=== PATIENT | male | born 1985 | race Caucasian/White ===

== ENCOUNTER → 2017-10-06 | Outpatient (CLI) | payer OTHER ==
[2017-10-06 13:46] LABS: ALBUMIN 4.6 GM/DL (3.2-5.2); ALBUMIN/GLOBULIN RATIO 1.39 (1.00-1.93); ALKALINE PHOSPHATASE 77 U/L (45-117); ALT/SGPT 24 U/L (12-78); ANION GAP 6 MEQ/L (8-16); AST/SGOT 22 U/L (7-37); BILIRUBIN,TOTAL 0.4 MG/DL (0.2-1.0); BLOOD UREA NITROGEN 9 MG/DL (7-18); CARBON DIOXIDE LEVEL 32 MEQ/L (21-32); CHLORIDE LEVEL 102 MEQ/L (98-107); CREATININE FOR GFR 0.86 MG/DL (0.70-1.30); FREE T3 4.1 PG/ML (2.2-4.0); FREE T4 0.76 NG/DL (0.76-1.46); GLOMERULAR FILTRATION RATE > 60.0 (>60); GLUCOSE, FASTING 84 MG/DL (70-100); POTASSIUM SERUM 3.8 MEQ/L (3.5-5.1); SODIUM LEVEL 140 MEQ/L (136-145); TOTAL PROTEIN 7.9 GM/DL (6.4-8.2)
== END ==
LOC: M SMT 11:54
DX: E03.9 Hypothyroidism, unspecified (principal)
CPT/HCPCS: 84443

== ENCOUNTER → 2017-10-28 | Outpatient (CLI) | payer OTHER ==
[2017-10-28 17:09] LABS: BASO # 0.1 10^3/uL (0.0-0.2); BASO % 0.4 % (0.0-1.0); EOS # 0.2 10^3/uL (0.0-0.50); EOS % 1.4 % (0.0-3.0); HEMATOCRIT 44.9 % (42.0-52.0); HEMOGLOBIN 15.4 g/dl (14.0-18.0); IMMATURE GRANULOCYTE % 0.4 % (0-3.0); LYMPH # 2.2 10^3/uL (1.5-4.5); LYMPH % 17.5 % (24.0-44.0); MEAN CORPUSCULAR HEMOGLOBIN 29.3 pg (27.0-33.0); MEAN CORPUSCULAR HGB CONC 34.3 g/dl (32.0-36.5); MEAN CORPUSCULAR VOLUME 85.4 fl (80.0-96.0); MONO # 0.8 10^3/uL (0.0-0.8); NEUTROPHILS # 9.2 10^3/uL (1.8-7.7); NEUTROPHILS % 74.3 % (36.0-66.0); PLATELET COUNT, AUTOMATED 293 10^3/uL (150-450); RED BLOOD COUNT 5.26 10^6/uL (4.30-6.10); RED CELL DISTRIBUTION WIDTH 11.9 % (11.5-14.5); WHITE BLOOD COUNT 12.4 10^3/uL (4.0-10.0)
[2017-10-28 17:30] LABS: ALBUMIN 4.7 GM/DL (3.2-5.2); ALBUMIN/GLOBULIN RATIO 1.57 (1.00-1.93); ALKALINE PHOSPHATASE 80 U/L (45-117); ALT/SGPT 26 U/L (12-78); ANION GAP 4 MEQ/L (8-16); AST/SGOT 18 U/L (7-37); BILIRUBIN,TOTAL 0.2 MG/DL (0.2-1.0); BLOOD UREA NITROGEN 11 MG/DL (7-18); CALCIUM LEVEL 8.8 MG/DL (8.5-10.1); CARBON DIOXIDE LEVEL 30 MEQ/L (21-32); CHLORIDE LEVEL 105 MEQ/L (98-107); CREATININE FOR GFR 0.95 MG/DL (0.70-1.30); FREE T3 3.7 PG/ML (2.2-4.0); FREE T4 0.83 NG/DL (0.76-1.46); GLOMERULAR FILTRATION RATE > 60.0 (>60); GLUCOSE, FASTING 97 MG/DL (70-100); IRON (FE) 40 UG/DL (65-175); POTASSIUM SERUM 3.8 MEQ/L (3.5-5.1); SODIUM LEVEL 139 MEQ/L (136-145); TOTAL PROTEIN 7.7 GM/DL (6.4-8.2)
== END ==
LOC: M LAB 16:23
DX: R53.83 Other fatigue (principal); J45.998 Other asthma; E03.9 Hypothyroidism, unspecified
CPT/HCPCS: 71046

== ENCOUNTER → 2018-01-14 | Outpatient (CLI) | payer OTHER | LOC: M WUC 10:27 | DX: S20.211A Contusion of right front wall of thorax, initial encounter (principal); X58.XXXA Exposure to other specified factors, initial encounter; Y92.9 Unspecified place or not applicable | CPT/HCPCS: 71101 ==

== ENCOUNTER → 2019-10-28 | Outpatient (REF) | payer OTHER, MEDICAID ==
[2019-10-28 13:22] LABS: BASO # 0.1 10^3/uL (0.0-0.2); EOS # 0.2 10^3/uL (0.0-0.5); EOS % 3.5 % (0.0-3.0); HEMATOCRIT 50.4 % (42.0-52.0); HEMOGLOBIN 16.7 g/dl (13.5-17.5); LYMPH # 1.6 10^3/uL (1.5-5.0); LYMPH % 31.3 % (24.0-44.0); MEAN CORPUSCULAR HEMOGLOBIN 29.3 pg (27.0-33.0); MEAN CORPUSCULAR HGB CONC 33.1 g/dl (32.0-36.5); MEAN CORPUSCULAR VOLUME 88.4 fl (80.0-96.0); MONO # 0.5 10^3/uL (0.0-0.8); NEUTROPHILS # 2.8 10^3/uL (1.5-8.5); PLATELET COUNT, AUTOMATED 265 10^3/uL (150-450); WHITE BLOOD COUNT 5.1 10^3/uL (4.0-10.0)
[2019-10-28 13:37] LABS: ALBUMIN 4.7 GM/DL (3.2-5.2); ALT/SGPT 31 U/L (12-78); BILIRUBIN,TOTAL 0.5 MG/DL (0.2-1.0); BLOOD UREA NITROGEN 11 MG/DL (7-18); CALCIUM LEVEL 9.2 MG/DL (8.5-10.1); CARBON DIOXIDE LEVEL 30 MEQ/L (21-32); CHLORIDE LEVEL 106 MEQ/L (98-107); CHOLESTEROL LEVEL 213 MG/DL (<200); CHOLESTEROL RISK RATIO 5.071 (<5); CREATININE FOR GFR 0.98 MG/DL (0.70-1.30); GLOMERULAR FILTRATION RATE > 60.0 (>60); GLUCOSE, FASTING 98 MG/DL (70-100); HDL CHOLESTEROL 42 MG/DL (>40); LDL CHOLESTEROL 153 MG/DL (<100); NON-HDL-C 171 MG/DL; POTASSIUM SERUM 4.1 MEQ/L (3.5-5.1); SODIUM LEVEL 140 MEQ/L (136-145); TOTAL 25(OH) VITAMIN D 11.3 NG/ML (30.0-100.0); TOTAL PROTEIN 7.7 GM/DL (6.4-8.2); TRIGLYCERIDES LEVEL 90 MG/DL (<150)
== END ==
LOC: M LAB REF 12:39
PROVIDERS: ATTEND Physician Assistant
DX: Z00.01 Encounter for general adult medical examination with abnormal findings (principal); Z13.9 Encounter for screening, unspecified; J45.20 Mild intermittent asthma, uncomplicated; E61.1 Iron deficiency; E03.8 Other specified hypothyroidism; R10.12 Left upper quadrant pain; Z23 Encounter for immunization

== ENCOUNTER → 2019-11-30 | Outpatient (REF) | payer OTHER, MEDICAID | LOC: M LAB REF 16:28 | PROVIDERS: ATTEND Physician Assistant | DX: J02.9 Acute pharyngitis, unspecified (principal) ==

== ENCOUNTER 2020-08-15 22:47 | Emergency (ER) | payer MEDICAID, OTHER ==
[~2020-08-15] VITALS: Ht 182.9 cm; Wt 82.2 kg
[2020-08-16 00:13] VITALS: BP 147/95
== END 2020-08-16 00:15 | disposition home or self-care (01) ==
LOC: M ED 22:47
DX: R51.9 Headache, unspecified (principal); R03.0 Elevated blood-pressure reading, without diagnosis of hypertension; Z88.4 Allergy status to anesthetic agent; Z88.0 Allergy status to penicillin

== ENCOUNTER → 2020-09-06 | Outpatient (REF) | payer OTHER ==
[2020-09-06 17:19] LABS: BASO # 0.1 10^3/uL (0.0-0.2); EOS # 0.1 10^3/uL (0.0-0.5); EOS % 2.4 % (0.0-3.0); HEMATOCRIT 49.8 % (42.0-52.0); HEMOGLOBIN 16.3 g/dl (13.5-17.5); LYMPH # 1.6 10^3/uL (1.5-5.0); MEAN CORPUSCULAR HEMOGLOBIN 29.2 pg (27.0-33.0); MEAN CORPUSCULAR HGB CONC 32.7 g/dl (32.0-36.5); MEAN CORPUSCULAR VOLUME 89.1 fl (80.0-96.0); MONO # 0.5 10^3/uL (0.0-0.8); MONO % 8.8 % (0.0-5.0); NEUTROPHILS # 3.5 10^3/uL (1.5-8.5); NEUTROPHILS % 60.5 % (36.0-66.0); PLATELET COUNT, AUTOMATED 269 10^3/uL (150-450); RED BLOOD COUNT 5.59 10^6/uL (4.30-6.10); WHITE BLOOD COUNT 5.8 10^3/uL (4.0-10.0)
[2020-09-06 17:42] LABS: ALBUMIN 4.7 GM/DL (3.2-5.2); ALT/SGPT 38 U/L (12-78); BILIRUBIN,TOTAL 0.7 MG/DL (0.2-1.0); BLOOD UREA NITROGEN 11 MG/DL (7-18); CALCIUM LEVEL 9.2 MG/DL (8.5-10.1); CARBON DIOXIDE LEVEL 30 MEQ/L (21-32); CHLORIDE LEVEL 101 MEQ/L (98-107); CHOLESTEROL LEVEL 264 MG/DL (<200); CREATININE FOR GFR 1.07 MG/DL (0.70-1.30); FREE T4 0.78 NG/DL (0.76-1.46); GLOMERULAR FILTRATION RATE > 60.0 (>60); GLUCOSE, FASTING 82 MG/DL (70-100); HDL CHOLESTEROL 44 MG/DL (>40); LDL CHOLESTEROL 191 MG/DL (<100); NON-HDL-C 220 MG/DL; POTASSIUM SERUM 4.5 MEQ/L (3.5-5.1); SODIUM LEVEL 138 MEQ/L (136-145); TRIGLYCERIDES LEVEL 145 MG/DL (<150)
== END ==
LOC: M LAB REF 16:03
PROVIDERS: ATTEND Physician Assistant
DX: E03.9 Hypothyroidism, unspecified (principal)

== ENCOUNTER 2020-09-13 16:29 | Emergency (ER) | payer OTHER ==
[~2020-09-13] VITALS: Ht 182.9 cm; Wt 83.8 kg
--- OUTSIDE RECORDS SUMMARY | 2020-09-13 16:35 | CCD ---
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 Role Phone Brian Shrestha Unavailable Unavailable Allergies Code Code System Name Reaction Severity Status Onset Albuterol Sulfate Active 10/24/2019 6387 RxNorm Lidocaine Active 10/24/2019 Novocain Active 10/24/2019 723 RxNorm Amoxicillin Hives Active Notes: SEASONAL Medications Name Status Start Date Stop Date albuterol sulfate HFA 90 mcg/actuation aerosol inhaler Active Not available azithromycin 250 mg tablet TAKE 2 TABLETS BY MOUTH ON DAY 1 AND THEN TAKE 1 TABLET BY MOUTH ONCE A DAY ON DAY 2 THROUGH DAY 5 Active Not available cetirizine 10 mg tablet Active Not avai lable clindamycin HCl 300 mg capsule Completed 0 08/29/2020 Euthyrox 25 mcg tablet TAKE 1 TABLET BY MOUTH ONCE DAILY Completed 08/29 fluticasone 113 mcg-salmeterol 14 mcg/ac tuation breath activated powdr INHALE 1 PUFF TWICE DAILY RINSE MOUTH AFTER USE Active Not available ibuprofen 800 mg tablet TAKE 1 TABLET BY MOUTH EVERY 6 TO 8 HOURS NEEDED Completed 08/29/2020 montelukast 10 mg tablet Active Not della ilable Problems Name Status Onset Date Source Hypothyroidism Active 10/24/2019 History Iron Deficiency Active 10/24/2019 History Exacerbation of Intermittent Asthma Active 10/24/2019 History Left Upper Quadrant Pain Active 10/24/2019 History Influenza Vaccine Needed Active 10/24/2019 History Procedure by Method Active 10/24/2019 History Clinical Finding Active 10/24/2019 History Pharyngeal Finding Active 11/30/2019 History Procedures Notes: pyloric stenosis Results Lab Results None recorded. Past Encounters 09/06/2020 Hypothyroidism Chiqui Madera PA-C: [address], [place] [address], Ph. 08/30/2020 Acute Bronchitis Chiqui Madera PA-C: [address], [address], [place] [address], Ph. 08/30/2020 Chiqui Madera PA-C: [address], [place] [address], Ph. 08/29/2020 Acute Upper Respiratory Infection VALORIE Mendiola: [address], [place] [address], Ph. Social History Tobacco Smoking Status Never Smoker Vaccine List Vaccine Type Tdap .5 mL Plan of Care Patient Instructions As we discussed, we will treat you with Zithromax and have you come in tomorrow for a quick visit to check vitals and listen to your lungs. Go directly to the ER for chest pain or trouble breathing. Reminders Provider Appointments None recorded. Lab None recorded. Referral None recorded. Procedures None recorded. Surgeries None recorded. Imaging None recorded. Vitals 08/30/2020 11:50AM NURSE Height Weight BMI Blood Pressure 72 in 185 lbs 9.6 oz 25.2 kg/m2 142/82 mm[Hg ] 08/29/2020 10:50AM TELEHEALTH 20 Height 72 in 11/30/2019 Height Weight Blood Pressure 72 in 188 lbs 138/87 mm[Hg] 10/24/2019 Height Weight Blood Pressure 72 in 186 lbs 132/88 mm[Hg]
--- OUTSIDE RECORDS SUMMARY | 2020-09-13 16:35 | CCD ---
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 Role Phone Brian Shrestha Unavailable Unavailable Allergies Code Code System Name Reaction Severity Status Onset Albuterol Sulfate Active 10/24/2019 6387 RxNorm Lidocaine Active 10/24/2019 Novocain Active 10/24/2019 723 RxNorm Amoxicillin Hives Active Notes: SEASONAL Medications Name Status Start Date Stop Date albuterol sulfate HFA 90 mcg/actuation aerosol inhaler Completed 08/29/2020 cetirizine 10 mg tablet Active 08/29/2020 Not avai lable clindamycin HCl 300 mg [...] 10 mg tablet Active Not della ilable Zithromax Z-Eloy 250 mg tablet TAKE 2 TABLETS (500 MG) BY ORAL ROUTE ONCE DAILY FOR 1 DAY THEN 1 TABLET (250 MG) BY ORAL ROUTE ONCE DAILY FOR 4 DAYS Active Not available Problems Name Status Onset Date Source Hypothyroidism Active 10/24/2019 History Iron Deficiency Active 10/24/2019 History Exacerbation of Intermittent Asthma Active 10/24/2019 History Left Upper Quadrant Pain Active 10/24/2019 History Influenza Vaccine Needed Active 10/24/2019 History Procedure by Method Active 10/24/2019 History Clinical Finding Active 10/24/2019 History Pharyngeal Finding Active 11/30/2019 History Procedures Notes: pyloric stenosis Results Lab Results None recorded. Past Encounters 08/30/2020 Acute Bronchitis Chiqui Madera PA-C: [address], [address], [place] [address], Ph. 08/30/2020 Chiqui Madera PA-C: [address], [address], [place] [address], Ph. 08/29/2020 Acute Upper Respiratory Infection VALORIE Mendiola: [address], [address], [place] [address], Ph. Social History Tobacco Smoking Status Never [...]
--- OUTSIDE RECORDS SUMMARY | 2020-09-13 16:36 | CCD ---
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 Past Encounters 08/29/2020 Acute Upper Respiratory Infection Perri Moraes, RPA-C: [address] , [address], [place] [address], Ph. Social History Tobacco Smoking Status Never Smoker Vaccine List Vaccine Type Tdap 10/24/20190.5 mL Plan of Care Patient Instructions As [...] Surgeries None recorded. Imaging None recorded. Vitals 08/29/2020 10:50AM TELEHEALTH 20 Height 72 in 11/30/2019 Height Weight Blood Pressure 72 in 188 lbs 138/87 mm[Hg] 10/24/2019 Height Weight Blood Pressure 72 in 186 lbs 132/88 mm[Hg]
--- OUTSIDE RECORDS SUMMARY | 2020-09-13 16:36 | CCD | Continuity of Care Document ---
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 Phone AUTM Unavailable [employer] AUTM [phone] Problems Description No Information Available Social History Type Date Description Comments Sex Unknown ETOH Use Denies alcohol use Tobacco Use Start: Unknown Patient has never smoked Tobacco Use Start: Unknown The Patient Has Never Vaped Smoking Status Reviewed: 08/21/20 The Patient Has Never Vaped Allergies, Adverse Reactions, Alerts Active Allergies Reaction Severity Comments Date Penicillins Urticaria Moderate 07/26/2016 Lidocaine Urticaria Moderate 07/26/2016 Novocain Urticaria Moderate 07/26/2016 Amoxicillin hives 09/12/2016 Inactive Allergies NKDA 07/26/2016 Medications Active Medications SIG Qnty Indications Ordering Provide r Date Albuterol Sulfate HFA 108(90Base) mcg/Act Aerosol 2 puffs every 6 hours as needed for wheeze and cough 8.500gm J45.901 Hermes Ryan JR., M.D. 08/21/2020 Levothyroxine Sodium 25mcg Tablets Unknown Iron 325(65Fe) mg Tablets 1 by mouth once a day Unknown Claritin Unknown Immunizations Description No Information Available Vital Signs Date Vital Result Comment 08/21/2020 2:22pm BP Systolic 129 mmHg BP Diastolic 93 mmHg Heart Rate 88 /min Respiratory Rate 16 /min O2 % BldC Oximetry 99 % Body Temperature 99.1 F Weight 165.00 lb Pain Level 4 09/26/2019 10:00am BP Systolic 129 mmHg BP Diastolic 90 mmHg Heart Rate 102 /min Respiratory Rate 12 /min O2 % BldC Oximetry 95 % Body Temperature 100.1 F Weight 165.00 lb Height 72 inches 6'0" BMI (Body Mass Index) 22.4 kg/m2 Pain Level 7 Results Description No Information Available Procedures Description No Information Available Medical Devices Description No Information Available Encounters Type Date Location Provider Dx Diagnosis Office Visit 08/21/2020 3:15p Main Office RENAE Villaseñor J45.9 01 Unspecified asthma with (acute) exacerbation Z20.828 Contact w and exposure to ot h viral communicable diseases Assessments Date Code Description Provider 08/21/2020 J45.901 Unspecified asthma with (acute) exacerbation RENEA Villaseñor 08/21/2020 Z20.828 Contact with and (tidwell spected) exposure to other viral communicable diseases RENAE Villaseñor Plan of Treatment No Information Available Functional Status Description No Information Available Mental Status Description No Information Available Referrals Description No Information Available
--- OUTSIDE RECORDS SUMMARY | 2020-09-13 16:36 | CCD | Continuity of Care Document ---
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
--- OUTSIDE RECORDS SUMMARY | 2020-09-13 16:36 | CCD ---
Author Author [facility] Organization [facility] Address Unknown Phone Unavailable Care Team Providers Care Stoker Erector Name Role Phone Scordo, M Chiqui PA Unavailable Unavailable Scordo, M Chiqui PA Unavailable Unavailable Scordo, M Chiqui PA Unavailable Unavailable Scordo, M Chiqui PA Unavailable Unavailable Scordo, M Chiqui PA Unavailable Unavailable Scordo, M Chiqui PA Unavailable Unavailable Scordo, M Chiqui PA Unavailable Unavailable Scordo, M Chiqui PA Unavailable Unavailable Scordo, M Chiqui PA Unavailable Unavailable Scordo, M Chiqui PA Unavailable Unavailable Scordo, M Chiqui PA Unavailable Unavailable Scordo, M Chiqui PA Unavailable Unavailable Scordo, M Chiqui PA Unavailable Unavailable Scordo, M Chiqui PA Unavailable Unavailable Scordo, M Chiqui PA Unavailable Unavailable Scordo, M Chiqui PA Unavailable Unavailable Scordo, M Chiqui PA Unavailable Unavailable Scordo, M Chiqui PA Unavailable Unavailable Scordo, M Chiqui PA Unavailable Unavailable Scordo, M Chiqui PA Unavailable Unavailable Scordo, M Chiqui PA Unavailable Unavailable Scordo, M Chiqui PA Unavailable Unavailable Scordo, M Chiqui PA Unavailable Unavailable Scordo, M Chiqui PA Unavailable Unavailable Scordo, M Chiqui PA Unavailable Unavailable Scordo, M Chiqui PA Unavailable Unavailable Scordo, M Chiqui PA Unavailable Unavailable Scordo, M Chiqui PA Unavailable Unavailable Scordo, M Chiqui PA Unavailable Unavailable Scordo, M Chiqui PA Unavailable Unavailable Scordo, M Chiqui PA Unavailable Unavailable Scordo, M Chiqui PA Unavailable Unavailable Scordo, M Chiqui PA Unavailable Unavailable Scordo, M Chiqui PA Unavailable Unavailable Scordo, M Chiqui PA Unavailable Unavailable Scordo, M Chiqui PA Unavailable Unavailable Scordo, M Chiqui PA Unavailable Unavailable Scordo, M Chiqui PA Unavailable Unavailable Scordo, M Chiqui PA Unavailable Unavailable Scordo, M Chiqui PA Unavailable Unavailable LAN, SHEREEN Unavailable Unavailable LAN, SHEREEN Unavailable Unavailable LAN, SHEREEN Unavailable Unavailable LAN, SHEREEN Unavailable Unavailable LAN, SHEREEN Unavailable Unavailable LAN, SHEREEN Unavailable Unavailable LAN, SHEREEN Unavailable Unavailable LAN, SHEREEN Unavailable Unavailable LAN, SHEREEN Unavailable Unavailable LAN, SHEREEN Unavailable Unavailable ALN, SHEREEN Unavailable Unavailable LAN, SHEREEN Unavailable Unavailable LAN, SHEREEN Unavailable Unavailable LAN, SHEREEN Unavailable Unavailable LAN, SHEREEN Unavailable Unavailable LAN, SHEREEN Unavailable Unavailable LAN, SHEREEN Unavailable Unavailable LAN, SHEREEN Unavailable Unavailable LAN, SHEREEN Unavailable Unavailable LAN, SHEREEN Unavailable Unavailable LAN, SHEREEN Unavailable Unavailable LAN, SHEREEN Unavailable Unavailable LAN, SHEREEN Unavailable Unavailable LAN, SHEREEN Unavailable Unavailable LAN, SHEREEN Unavailable Unavailable Davis, Sarah ASSISTANT DIRECTOR OF PUBLIC WORKS Unavailable Unavailable Davis, Sarah ASSISTANT DIRECTOR OF PUBLIC WORKS Unavailable Unavailable Davis, Sarah ASSISTANT DIRECTOR OF PUBLIC WORKS Unavailable Unavailable Davis, Sarah ASSISTANT DIRECTOR OF PUBLIC WORKS Unavailable Unavailable Davis, Sarah ASSISTANT DIRECTOR OF PUBLIC WORKS Unavailable Unavailable Davis, Sarah ASSISTANT DIRECTOR OF PUBLIC WORKS Unavailable Unavailable Davis, Sarah ASSISTANT DIRECTOR OF PUBLIC WORKS Unavailable Unavailable Davis, Sarah ASSISTANT DIRECTOR OF PUBLIC WORKS Unavailable Unavailable Davis, Sarah ASSISTANT DIRECTOR OF PUBLIC WORKS Unavailable Unavailable Davis, Sarah ASSISTANT DIRECTOR OF PUBLIC WORKS Unavailable Unavailable Davis, Sarah ASSISTANT DIRECTOR OF PUBLIC WORKS Unavailable Unavailable Rosa, Phoung DMD Unavailable Unavailable BLANK, AFSHAN BRIAN RPA-C Unavailable Unavailable BLANK, AFSHAN BRIAN RPA-C Unavailable Unavailable BLANK, AFSHAN BRIAN RPA-C Unavailable Unavailable BLANK, AFSHAN BRIAN RPA-C Unavailable Unavailable BLANK, AFSHAN BRIAN RPA-C Unavailable Unavailable BLANK, AFSHAN BRIAN RPA-C Unavailable Unavailable BLANK, AFSHAN BRIAN RPA-C Unavailable Unavailable BLANK, AFSHAN BRIAN RPA-C Unavailable Unavailable BLANK, AFSHAN BRIAN RPA-C Unavailable Unavailable BLANK, AFSHAN BRIAN RPA-C Unavailable Unavailable BLANK, AFSHAN BRIAN RPA-C Unavailable Unavailable BLANK, AFSHAN BRIAN RPA-C Unavailable Unavailable BLANK, AFSHAN BRIAN RPA-C Unavailable Unavailable BLANK, AFSHAN BRIAN RPA-C Unavailable Unavailable BLANK, AFSHAN BRIAN RPA-C Unavailable Unavailable BLANK, AFSHAN BRIAN RPA-C Unavailable Unavailable BLANK, AFSHAN BRIAN RPA-C Unavailable Unavailable BLANK, AFSHAN BRIAN RPA-C Unavailable Unavailable BLANK, AFSHAN BRIAN RPA-C Unavailable Unavailable BLANK, AFSHAN BRIAN RPA-C Unavailable Unavailable BLANK, AFSHAN BRIAN RPA-C Unavailable Unavailable BLANK, AFSHAN BRIAN RPA-C Unavailable Unavailable BLANK, AFSHAN BRIAN RPA-C Unavailable Unavailable BLANK, AFSHAN BRIAN RPA-C Unavailable Unavailable BLANK, AFSHAN BRIAN RPA-C Unavailable Unavailable BLANK, AFSHAN BRIAN RPA-C Unavailable Unavailable BLANK, AFSHAN BRIAN RPA-C Unavailable Unavailable BLANK, AFSHAN BRIAN RPA-C Unavailable Unavailable BLANK, AFSHAN BRIAN RPA-C Unavailable Unavailable BLANK, AFSHAN BRIAN RPA-C Unavailable Unavailable BLANK, AFSHAN BRIAN RPA-C Unavailable Unavailable BLANK, AFSHAN BRIAN RPA-C Unavailable Unavailable BLANK, AFSHAN BRIAN RPA-C Unavailable Unavailable BLANK, AFSHAN BRIAN RPA-C Unavailable Unavailable BLANK, AFSHAN BRIAN RPA-C Unavailable Unavailable BLANK, AFSHAN BRIAN RPA-C Unavailable Unavailable BLANK, AFSHAN BRIAN RPA-C Unavailable Unavailable BLANK, AFSHAN BRIAN RPA-C Unavailable Unavailable BLANK, AFSHAN BRIAN RPA-C Unavailable Unavailable Ayah Marley Unavailable Unavailable Marley, Ayah Teena PA Unavailable Unavailable Marley, Ayah Teena PA Unavailable Unavailable Marley, Ayah Teena PA Unavailable Unavailable Marley, Ayah Teena PA Unavailable Unavailable Marley, Ayah Teena PA Unavailable Unavailable Marley, Ayah Teena PA Unavailable Unavailable Marley, Ayah Teena PA Unavailable Unavailable Marley, Ayah Teena PA Unavailable Unavailable Marley, Ayah Teena PA Unavailable Unavailable [facility], RFROST BLANK PA BRIAN Unavailable Unavailable Re-disclosure Warning The records that you are about to access may contain information from federally-assisted alcohol or drug abuse programs. If such information is present, then the following federally mandated warning applies: This information has been disclosed to you from records protected by federal confidentiality rules (42 CFR part 2). The federal rules prohibit you from making any further disclosure of this information unless further disclosure is expressly permitted by the written consent of the person to whom it pertains or as otherwise permitted by 42 CFR part 2. A general authorization for the release of medical or other information is NOT sufficient for this purpose. The Federal rules restrict any use of the information to criminally investigate or prosecute any alcohol or drug abuse patient.The records that you are about to access may contain highly sensitive health information, the redisclosure of which is protected by Article 27-F of the [facility] Public Health law. If you continue you may have access to information: Regarding HIV / AIDS; Provided by facilities licensed or operated by the [facility] Office of Mental Health; or Provided by the [facility] Office for People With Developmental Disabilities. If such information is present, then the following [facility] mandated warning applies: This information has been disclosed to you from confidential records which are protected by state law. State law prohibits you from making any further disclosure of this information without the specific written consent of the person to whom it pertains, or as otherwise permitted by law. Any unauthorized further disclosure in violation of state law may result in a fine or long term sentence or both. A general authorization for the release of medical or other information is NOT sufficient authorization for further disc losure. Allergies and Adverse Reactions Type Description Substance Reaction Status Data Source(s ) Allergy to substance Allergy to substance Novocain NORM ([facility]) Allergy to substance Allergy to substance Lidocaine NORM ([facility]) Allergy to substance Allergy to substance Albuterol Sulfate NORM ([facility]) Allergy to substance Allergy to substance Novocain NORM ([facility]) Allergy to substance Allergy to substance Lidocaine NORM ([facility]) Allergy to substance Allergy to substance Albuterol Sulfate NORM ([facility]) Allergy to substance Allergy to substance Novocain NORM ([facility]) Allergy to substance Allergy to substance Lidocaine NORM ([facility]) Allergy to substance Allergy to substance Albuterol Sulfate NORM ([facility]) Drug allergy ALBUTEROL SULFATE HFA 200 ACTUAT Albuter ol 0.09 MG/ACTUAT Metered Dose Inhaler lightheadedness U [facility] Drug allergy NOVOCAIN NOVOCAIN [facility] Drug allergy LIDOCAINE LIDOCAINE [facility] Miscellaneous allergy SEASONAL SEASONAL [facility] Family History Family Member Name Family Member Gender Family Member Status Date o f Status Description Data Source(s) Unknown Unknown Problem MEDENT ([facility]) father Unknown Unknown Problem MEDENT ([facility] Encounters Encounter Providers Location Date Indications Data Source(s ) Chiqui Madera PA-C: [address], [place] [address], Ph. Attender: Chiqui MACDONALD [facility] Medical 09/06/2020 12:00:00 AM EST NORM ([facility]) Chiqui Madera PA-C: [address], [place] [address], Ph. Attender: Chiqui MACDONALD [facility] 08/30/2020 12:00:00 AM EST NORM ([facility]) Chiqui Madera PA-C: [address], [place] [address], Ph. Attender: Chiqui [facility]DONALD [facility] Medical 08/30/2020 12:00:00 AM EST NORM ([facility]) JOSE SpencerC: [address], [place] [address], Ph. Attender: Chiqui [facility]DON[facility] Medical 08/30/2020 12:00:00 AM EST NORM ([facility]) JOSE SpencerC: [address], [place] [address], Ph. Attender: Chiqui [facility]DONAL[facility] 08/30/2020 12:00:00 AM EST NORM ([facility]) KOSTAS MendiolaC: [address], [place] [address], Ph. Attender: SHEREEN LAN [facility] Medical 08/29/2020 12:00:00 AM EST NORM ([facility]) KOSTAS MendiolaC: [address], [place] [address], Ph. Attender: SHEREEN LAN [facility] Medical 08/29/2020 12:00:00 AM EST NORM ([facility]) Shereen Lan RPA-C: [address], [place] [address], Ph. Attender: SHEREEN LAN [facility] 08/29/2020 12:00:00 AM EST NROM ([facility]) Outpatient Attender: Teena sandoval 08/21/2020 02:15:00 PM EST MEDENT ([facility]) Outpatient Attender: ERENDIRA HEDRICK [facility] 11/23 07:53:03 AM EDT [facility] Outpatient Attender: BRIAN BLANK RPA-C [facility] 12/15/2019 07:53:02 AM EDT [facility] Outpatient Attender: ERENDIRA HEDRICK [facility] 11/22 08:37:02 AM EDT [facility] Outpatient Attender: BRIAN BLANK RPA-C [facility] 12/02/2019 08:37:01 AM EDT [facility] Outpatient Attender: ERENDIRA HEDRICK [facility] 03/2020 04:23:01 PM EDT [facility] Outpatient Attender: BRIAN BLANK RPA-C [facility] 11/30/2019 02:56:00 PM EDT [facility] Outpatient Attender: ERENDIRA HEDRICK [facility] 10/31/2019 04:17:02 PM EDT [facility] Outpatient Attender: ERENDIRA HEDRICK [facility] 10/31/2019 01:33:03 PM EDT [facility] Outpatient Attender: BRIAN BLANK RPA-C [facility] 10/31/2019 01:33:01 PM EDT [facility] Outpatient Attender: ERENDIRA HEDRICK [facility] 10/31/2019 01:32:01 PM EDT [facility] Outpatient Attender: ERENDIRA HEDRICK [facility] 10/28/2019 10:08:00 AM [facility] Outpatient Attender: ERENDIRA HEDRICK [facility] 10/28/2019 10:03:01 AM [facility] Outpatient Attender: BRIAN BLANK RPA-C [facility] 10/26/2019 08:24:02 AM [facility] Outpatient Attender: BRIAN BLANK RPA-C [facility] 10/25/2019 12:00:25 AM [facility] Outpatient Attender: BRIAN BLANK RPA-C [facility] 10/24/2019 11:52:00 AM [facility] Outpatient Attender: BRIAN EUGENE [facility] 10/24/2019 10:51:00 AM [facility] Outpatient Attender: BRIAN EUGENE [facility] 10/24/2019 10:50:01 AM [facility] Outpatient Attender: BRIAN ABHAY EUGENE [facility]ES[facility]YEC 10/24/2019 10:48:00 AM [facility] Outpatient Attender: Cheryl Rosa RODRIGUEZ WATNDC 10/24/2019 10:37:01 AM [facility] Outpatient Attender: Cheryl Rosa RODRIGUEZ WATNDC 10/20/2019 12:48:01 PM [facility] Outpatient Attender: Cheryl Rosa RODRIGUEZ WATNDC 10/19/2019 08:46:00 AM [facility] Outpatient Attender: Cheryl Rosa RODRIGUEZ [facility]ATNDC 10/12/2019 11:27:47 AM [facility] Outpatient Attender: Sarah odonnell 09/26/2019 08:15:00 AM EST MEDENT ([facility]) Outpatient Attender: Sarah odonnell 07/20/2019 12:30:00 PM EST MEDENT ([facility]) Immunizations Vaccine Date Status Description Data Source(s) Tdap 10/24/2019 12:00:00 AM EST completed 10/24/2019 0.5 mL NORM ([facility]) Tdap 10/24/2019 12:00:00 AM EST completed 10/24/2019 0.5 mL NORM ([facility]) Tdap 10/24/2019 12:00:00 AM EST completed 10/24/2019 0.5 mL NORM ([facility]) Medications Medication Brand Name Start Date Product Form Dose Route Admi nistrative Instructions Pharmacy Instructions Status Indications Reaction Description Data Source(s) cetirizine hydrochloride 10 MG Oral Tablet cetirizine 10 mg tablet cetirizine 10 mg tablet 08/29/2020 12:00:00 AM EST complete d cetirizine hydrochloride 10 MG Oral Tablet NORM ([facility]) cetirizine hydrochloride 10 MG Oral Tablet cetirizine 10 mg tablet cetirizine 10 mg tablet 08/29/2020 12:00:00 AM EST complete d cetirizine hydrochloride 10 MG Oral Tablet NORM ([facility]) 60 ACTUAT Albuterol 0.09 MG/ACTUAT Metered Dose Inhaler Albu terol Sulfate HFA 08/21/2020 12:00:00 AM EST RESPIRATORY active MEDENT ([facility]) Oseltamivir 75 MG Oral Capsule Oseltamivir Phosphate 09/26/2019 12:00:00 AM EST ORAL active MEDENT ( [facility]) 60 ACTUAT Albuterol 0.09 MG/ACTUAT Metered Dose Inhaler Albu terol Sulfate HFA 07/20/2019 12:00:00 AM EST RESPIRATORY completed MEDENT ([facility]) Azithromycin 250 MG Oral Tablet Azithromycin 07/20/2019 12:00:[address] ORAL completed MEDENT ([facility]) Prednisone 20 MG Oral Tablet Prednisone 07/20/2019 12:00:00 AM EST completed MEDENT ([facility]) Clindamycin 300 MG Oral Capsule clindamycin HCl 300 mg capsule clindamycin HCl 300 mg capsule completed clindam ycin 300 MG Oral Capsule NORM ([facility]) Levothyroxine Sodium 0.025 MG Oral Table t [Euthyrox] Euthyrox 25 mcg tablet TAKE 1 TABLET BY MOUTH ONCE DAILY Euthyrox 25 mcg tablet TAKE 1 TABLET BY MOUTH ONCE DAILY completed levothy roxine sodium 0.025 MG Oral Tablet [Euthyrox] NORM ([facility]) albuterol sulfate HFA 90 mcg/actuation aerosol inhaler [id number] completed [id number] 200 ACTUAT albuterol 0.09 MG/ACTUAT Metered Dose Inhaler NORM ([facility]) Clindamycin 300 MG Oral Capsule clindamycin HCl 300 mg capsule clindamycin HCl 300 mg capsule completed clindam ycin 300 MG Oral Capsule NORM ([facility]) Ibuprofen 800 MG Oral Tablet ibuprofen 8 00 mg tablet TAKE 1 TABLET BY MOUTH EVERY 6 TO 8 HOURS NEEDED ibuprofen 800 mg tablet TAKE 1 TABLET BY MOUTH EVERY 6 TO 8 HOURS NEEDED completed ibuprofen 800 MG Oral Tablet NORM ([facility]) Levothyroxine Sodium 0.025 MG Oral Table t [Euthyrox] Euthyrox 25 mcg tablet TAKE 1 TABLET BY MOUTH ONCE DAILY Euthyrox 25 mcg tablet TAKE 1 TABLET BY MOUTH ONCE DAILY completed levothy roxine sodium 0.025 MG Oral Tablet [Euthyrox] NORM ([facility]) Clindamycin 300 MG Oral Capsule clindamycin HCl 300 mg capsule clindamycin HCl 300 mg capsule completed clindam ycin 300 MG Oral Capsule NORM ([facility]) Levothyroxine Sodium 0.025 MG Oral Table t [Euthyrox] Euthyrox 25 mcg tablet TAKE 1 TABLET BY MOUTH ONCE DAILY Euthyrox 25 mcg tablet TAKE 1 TABLET BY MOUTH ONCE DAILY completed levothy roxine sodium 0.025 MG Oral Tablet [Euthyrox] NORM ([facility]) Ibuprofen 800 MG Oral Tablet ibuprofen 8 00 mg tablet TAKE 1 TABLET BY MOUTH EVERY 6 TO 8 HOURS NEEDED ibuprofen 800 mg tablet TAKE 1 TABLET BY MOUTH EVERY 6 TO 8 HOURS NEEDED completed ibuprofen 800 MG Oral Tablet NORM ([facility]) Ibuprofen 800 MG Oral Tablet ibuprofen 8 00 mg tablet TAKE 1 TABLET BY MOUTH EVERY 6 TO 8 HOURS NEEDED ibuprofen 800 mg tablet TAKE 1 TABLET BY MOUTH EVERY 6 TO 8 HOURS NEEDED completed ibuprofen 800 MG Oral Tablet NORM ([facility]) albuterol sulfate HFA 90 mcg/actuation aerosol inhaler [id number] completed [id number] 200 ACTUAT albuterol 0.09 MG/ACTUAT Metered Dose Inhaler NORM ([facility]) Insurance Providers Payer name Policy type / Coverage type Policy ID Covered libertarian ID Covered libertarian's relationship to rodgers Policy Rodgers Plan Information [facility] COMM[facility] [id number] SP [id number] [place] [id number] SP [id number] MEDICAID [id number] SP [id number] Managed Care [facility] Community Plan P [id number] S [id number] Medicaid S [id number] Managed Care [facility] Community Plan S UNAVAILABLE S UNAVAILABLE Medicaid O UNAVAILABLE S UNAVAILA BLE Sliding Fee Scale P [id number] S [id number] SELF PAY UNAVAILABLE SP UNAVAILA BLE MEDICAID [id number] SP [id number] [facility] Health Maintenance Organization (O) [id number] Self [id number] [employer] [facility] Health Maintenance Organization (HMO) [id number] Self [id number] [facility] (HMO) [id number] Self [id number] [facility] Organization (HMO) [id number] Self [id number] [facility] O [id number] S [id number] [facility] Maintenance Organization (HMO) [id number] Self [id number] [facility] Organization (HMO) Self c Community Plan Health Maintenance Organization (HMO) Self [employer] -H[employer] [id number] 18 [id number] Problems, Conditions, and Diagnoses Code Display Name Description Problem Type Effective Dates Data Source(s) 485988935 Acute pharyngitis, unspecified Acute pharyngitis, unsp ecified 11/30/2019 02:54:33 PM EDT [facility] 912853452 Mild intermittent asthma with (acute) ex acerbation Mild intermittent asthma with (acute) exacerbation 11/30/2019 02:54:33 PM EDT [facility] 295890292 Pharyngeal finding Pharyngeal Finding Problem 03/2020 12:00:00 AM EDT [place] ([facility]) [id number] Pharyngeal finding Pharyngeal Finding Problem 03/2020 12:00:00 AM EDT [place] ([facility]) 183260731 Pharyngeal finding Pharyngeal Finding Problem 03/2020 12:00:00 AM EDT [place] ([facility]) V05.9 Vaccination Vaccination 10/26/2019 08:22:02 AM [facility] V05.9 Encounter for immunization Encounter for immunization 10/24/2019 11:50:38 AM [facility] 789.02 Left upper quadrant pain Left upper quadrant pain 10/24/2019 11:50:38 AM [facility] [id number] Other specified hypothyroidism Other specified hypothy roidism 10/24/2019 11:50:38 AM [facility] 275.09 Iron deficiency Iron deficiency 10/24/2019 11:5 0:38 AM [facility] V70.0 Health Screening Health Screening 10/24/2019 11 :50:38 AM [facility] V70.0 Encounter for general adult medical exam ination with abnormal findings Encounter for general adult medical examination with abnormal findings 10/24/2019 11:50:38 AM EST [facility] [id number] Clinical finding Clinical Finding Problem 10/24/2019 12 :00:00 AM EST NORM ([facility]) 573536329 Procedure by method Procedure by Method Problem 0 10/24/2019 12:00:00 AM EST NORM ([facility]) [id number] Influenza vaccine needed Influenza Vaccine Needed Pro blem 10/24/2019 12:00:00 AM EST NORM ([facility]) 802059276 Left upper quadrant pain Left Upper Quadrant Pain Prob ken 10/24/2019 12:00:00 AM EST NORM ([facility]) 461199358 Exacerbation of intermittent asthma Exac erbation of Intermittent Asthma Problem 10/24/2019 12:00:00 AM EST NORM ([facility]) 44516561 Iron deficiency Iron Deficiency Problem 10/24/2019 12:0 0:00 AM EST NORM ([facility]) 41958717 Hypothyroidism Hypothyroidism Problem 10/24/2019 12:00: 00 AM EST NORM ([facility]) 775132031 Clinical finding Clinical Finding Problem 10/24/2019 12 :00:00 AM EST NORM ([facility]) 614349062 Procedure by method Procedure by Method Problem 0 10/24/2019 12:00:00 AM EST NORM ([facility]) [id number] Influenza vaccine needed Influenza Vaccine Needed Pro blem 10/24/2019 12:00:00 AM EST NORM ([facility]) 625298481 Left upper quadrant pain Left Upper Quadrant Pain Prob ken 10/24/2019 12:00:00 AM EST NORM ([facility]) 349774332 Exacerbation of intermittent asthma Exac erbation of Intermittent Asthma Problem 10/24/2019 12:00:00 AM EST NORM ([facility]) 18535398 Iron deficiency Iron Deficiency Problem 10/24/2019 12:0 0:00 AM EST NORM ([facility]) 44033774 Hypothyroidism Hypothyroidism Problem 10/24/2019 12:00: 00 AM EST NORM ([facility]) 625491890 Clinical finding Clinical Finding Problem 10/24/2019 12 :00:00 AM EST NORM ([facility]) 129089022 Procedure by method Procedure by Method Problem 0 10/24/2019 12:00:00 AM KELLY ZHENG ([facility]) [id number] Influenza vaccine needed Influenza Vaccine Needed Pro blem 10/24/2019 12:00:00 AM KELLY ZHENG ([facility] er) [id number] Left upper quadrant pain Left Upper Quadrant Pain Prob ken 10/24/2019 12:00:00 AM KELLY ZHENG ([facility] er) [id number] Exacerbation of intermittent asthma Exac erbation of Intermittent Asthma Problem 10/24/2019 12:00:00 AM KELLY ZHENG ([facility]) [id number] Iron deficiency Iron Deficiency Problem 10/24/2019 12:0 0:00 AM KELLY ZHENG ([facility]) [id number] Hypothyroidism Hypothyroidism Problem 10/24/2019 12:00: 00 AM KELLY AHUMADAENA ([facility]) Results ID Date Data Source [id number] 08/21/2020 12:00:00 AM EST [facility] Name Value Range Interpretation Code Description Data Jania rce(s) Supporting Document(s) SARS coronavirus 2 Ag [facility] This lab was ordered by [facility] and reported by [facility]. ID Date Data Source [id number] 11/30/2019 02:56:00 PM EDT [facility] Name Value Range Interpretation Code Description Data Jania rce(s) Supporting Document(s) THROAT CULTR NORMAL JOSE PRESENT N [facility] ID Date Data Source [id number] 11/30/2019 02:25:49 PM EDT [facility] Measurements & CalculationsHeight: 72 inches (6 ft. 0 in.) 182.88 cm Weight: 188 pounds 85.45 kg Body Mass Index (BMI): 25.59BMI Interpretation: OverweightBody Surface Area (BSA): 2.08Weight Management Education Done (Nutrition/Physical Activity)Vital SignsTemperature: 98.6F tympanic Pulse Rate: 86 beats/minuteRespiratory Rate: 18 respirations/minuteBlood Pressure: 138/87 left arm sitting automaticO2 Saturation: 98% room airVital Signs performed by: Nerissa Goldberg LPN, November 30, 2019 2:32 PMVital Signs performed by: Brian MACDONALD, November 30, 2019 2:39 PMLabs In-House Lab TestsDate/Time Collected: November 30, 2019 3:00 PMDate/Time Received: November 30, 2019 3:00 PMTest Result Reference Range Normal ValueRapid Strep: negative negativeNerissa Goldberg LPN, November 30, 2019 3:00 PMInitial Intake Information from: patientRoom #: 1Smo angelo, Tobacco, Vaping or Smoke Exposure StatusSmoke Status: never smokerTobacco Use: NoDo you vape? NoPassive Smoke Exposure: NoHealthcare HistorySince your last office visit...Have you been admitted to the hospital? NoHave you been to an emergency room (ER) or urgent care clinic? NoHave you seen another healthcare provider? NoHave you seen a dentist? NoRate Your HealthIn general, would you say your health is? FairPain AssessmentAre you currently having any pain which... You would like your provider to address? No Affects your activity level? NoDepression Screening - PHQ-2Over the last two weeks, have you... Had little interest or pleasure in doing things? Not at all Been feeling down, depressed, or hopeless? Not at all PHQ-2 Score: 0Anxiety Screening - YASMEEN- 2Over the last two weeks, have you been... Feeling nervous, anxious, or on edge? Not at all Unable to stop or control worrying? Not at all YASMEEN-2 Score: 0Infectious Disease / Travel ScreeningRecent travel for you or any close contacts? NoHave you had any close contact with anyone diagnosed with or under investigation for COVID-19 (coronavirus)? NoHave you had any of the following symptoms recently? Fever? NoRespiratory symptoms: cough, cold, congestion, shortness of breath, difficulty breathing? YesScreening, Brief Intervention, & Referral to Treatment (SBIRT)Pre-Screening Questions How many times have you have 5 or more drinks in a day? 0How many times have you used an illegal drug or used a prescription medication for a non-medical reason? 0Performed by: Nerissa Goldberg LPN, November 30, 2019 2:28 PMPatient History Medical History:hypothyroidismAsthmaSurgical History:pyloric stenosisFamily History:Diabetes (Father)Hypertension (Father)Stroke (Father)Hypertension (Mother)[place] - Male under age 55 (Paternal Grandfather)Social/Personal History: Chief Complaintproductive cough, headache, sore throat, head congestionHistory of Present Illness (HPI)34 y/o male here for productive cough, sore throat, head congestion and headache over the last 3 days.Started with sore throat. Took Dayquil this AM with some improvement. Pt reports he typically feels worsening breathing in the summer months. HPI performed by: Brian MACDONALD, November 30, 2019 2:40 PMTransitions of Care InboundProblem ReviewProblem List was reviewed and/or updated during this visit.Medication Reconciliation & ReviewMedication List was reviewed and/or updated during this visit, including review of any hcom-saz-faajwfw medications, herbal therapies, and/or supplements.Allergy ReviewAllergy List was reviewed and/or updated during this visit.Adult Preven candido CareProvider Calculated and Reviewed all Clinical Protocols for patient today. Labs/Meds/Other Counseling-Nutrition and Physical Activity:BMI Interpretation: Overweight (11/30/2019) Counseling: Done (11/30/2019) Physical Activity: Done (11/30/2019)Review of Systems General: Complains of headache. Denies fever, feeling ill, sweats. Ears/Nose/Throat: Complains of nasal congestion, sore throat. Denies earache, difficulty swallowing, swollen glands. Cardiovascular: Denies chest pain, palpitations, feeling faint. Respiratory: Complains of cough, shortness of breath, wheezing. Denies difficulty breathing, excessive sputum, coughing up blood. Gastrointestinal: Denies nausea, vomiting, diarrhea, pain or discomfort. Neurologic: Denies weakness, feeling faint. Physical ExamGeneral Appearance: well nourished, well hydrated, no acute distressExternal Ears: normal, no lesions or deformitiesHearing: grossly intactOtoscopy: canals clear, tympanic membranes intact, no fluid, light reflex intact bilaterallyExternal Nose: normal, no lesions or deformitiesNasal: mucosa, septum, and turbinates normal, nares patentLips/Teeth/Gums: normal dentition, no gingival inflammation, no labial lesionsPharynx: tongue normal, posterior pharynx without erythema or exudate, no thrush/aphthous ulcerNeck: supple, no masses, trachea midline, full range of motion of neck, no adenopathyRespiratory, Auscultation: clear to auscultation bilaterally; no rales, rhonchi, or wheezesRespiratory, Effort: no intercostal retractions or use of accessory musclesCardiovascular, Auscultation: S1, S2 audible; no murmur, rub, or gallop; RRRPeripheral Circulation: no clubbing, cyanosis, edema, or varicositiesAbdomen: soft, non-tender, no masses, bowel sounds normalGait & Station: normalOrientation: oriented to time, place, and personJudgment & Insight: intactCare Management Plan Transitions of CareInboundRate Your HealthIn general, would you say your health is? FairAssessment & Plan Problems:Added: Acute pharyngitis, unspecified (OVX07-Z72.9) Assessment: Instructions: Negative strep in office today. Throat culture sent out, will call you if this requires antibiotics. Recommend warm salt water gargles, losanges, hot tea. Encourage plenty of fluids, soft foods such as jello and pudding. May use acetaminophen (Tylenol) or ibuprofen(Motrin) as directed on over the counter packaging, as needed for pain or inflammation.Changed:From: Dx of Mild intermittent asthma, uncomplicated (ADK26-Y22.20) To: Mild intermittent asthma with (acute) exacerbation (CUD35-J61.21)Assessed:Mild intermittent asthma with (acute) exacerbation (LNN88-F08.21) Assessment: Instructions: Start Cetirizine and Montelukast daily as prescribed. Continue your AirDuo twice daily. Although you get some dizziness and jittery feeling with your albuterol inhaler, please keep that with you to use for wheezing or shortness of breath.Patient Instructions/Care Plan: Mild intermittent asthma with (acute) exacerbation: Start Cetirizine and Montelukast daily as prescribed. Continue your AirDuo twice daily. Although you get some dizziness and jittery feeling with your albuterol inhaler, please keep that with you to use for wheezing or shortness of breath.Acute pharyngitis- unspecified: Negative strep in office today. Throat culture sent out, will call you if this requires antibiotics. Recommend warm salt water gargles, losanges, hot tea. Encourage plenty of fluids, soft foods such as jello and pudding. May use acetaminophen (Tylenol) or ibuprofen(Motrin) as directed on over the counter packaging, as needed for pain or inflammatio n. Plan developed in collaboration with patient and/or familyMedications:VITAMIN D3 50 MCG (1999 UT) ORAL CAPSULEMONTELUKAST SODIUM 10 MG ORAL TABLETCETIRIZINE HCL 10 MG ORAL TABLETAIRDUO RESPICLICK 113/14 113-14 MCG/ACT INH AEPBEUTHYROX 25 MCG ORAL TABLETMedication Changes:Added: VITAMIN D3 50 MCG (1999 UT) ORAL CAPSULE-1 capsule po dailyNew Prescription:CETIRIZINE HCL 10 MG ORAL TABLET-Take 1 tablet po daily Qty: 30[Tablet] Refills: 3 Method: ElectronicMONTELUKAST SODIUM 10 MG ORAL TABLET-Take 1 tablet po daily at bedtime Qty: 30[Tablet] Refills: 5 Method: ElectronicRemoved:FERROUS SULFATE 325 (65 FE) MG ORAL TABLET-1 tab po bidAllergies:LIDOCAINE (Critical)NOVOCAIN (Critical)* SEASONAL (Moderate)ALBUTEROL SULFATE HFA (ALBUTEROL SULFATE) (Mild)Orders:Rapid Strep [CPT-16890] Throat Culture [CPT-69716] Adult - Ofc Vst, EST, Level III [CPT-74589] Follow-Up Return to clinic: as needed Clinical Visit Summary Completed A M Name Value Range Interpretation Code Description Data Jania rce(s) Supporting Document(s) ID Date Data Source [id number] 11/30/2019 02:25:49 PM EDT [facility] Name Value Range Interpretation Code Description Data Jania rce(s) Supporting Document(s) RAPID STREP negative [facility] ID Date Data Source [id number] 10/28/2019 09:15:00 AM EST [facility] Name Value Range Interpretation Code Description Data Jania rce(s) Supporting Document(s) HCT 50.4 % 42.0-52.0 N [facility] HGB 16.7 g/dL 13.5-17.5 N [facility] MCH 33.1 G/DL pg 32.0-36.5 N [facility] amber [facility] MCHC 29.3 PG % 27.0-33.0 N [facility] PLATELETS 265 10 10*3/mm3 150-450 N [facility] RBC 5.70 10 10*6/mm3 4.30-6.10 N [facility] RDW 12.0 % 11.5-14.5 N [facility] WBC TOTAL 5.1 4.0-10.0 N [facility] ID Date Data Source [id number] 10/28/2019 09:15:00 AM EST [facility] Name Value Range Interpretation Code Description Data Jania rce(s) Supporting Document(s) BG FASTING 98 mg/dL 70-100 N [facility] T4, FREE 1.00 ng/dL 0.76-1.46 N [facility] TSH 2.440 microintl units/mL 0.358-3.[address] [facility] VIT D25 TOT 11.3 ng/mL 30.0-100.0 L [facility] ID Date Data Source [id number] 10/28/2019 09:12:44 AM EST [facility] Initial Intake Information from: patient Room #: 7Chief ComplaintBlood draw Pediatric Acute Intake History of Present Illness Chief Complaint: Blood draw Labs In-House Blood TestsDate/Time Collected: October 28, 2019 9:13 AMDate/Time Received: October 28, 2019 9:13 AMTest Result Reference Range Normal ValueComments: Blood drawn from Rt A/C, pt tolerated well Slantaye Rodgers MEDICAL OFFICE MANAGER, October 28, 2019 9:13 AMAssessment & Plan Orders:[id number] Vst-Est Level I [CPT-34103] 61794 - Venipuncture [CPT-89930] Name Value Range Interpretation Code Description Data Jania rce(s) Supporting Document(s) ID Date Data Source [id number] 10/24/2019 10:59:07 AM [facility] Measurements & CalculationsHeight: 72 inches (6 ft. 0 in.) 182.88 cm Weight: 186 pounds 84.55 kg Body Mass Index (BMI): 25.32BMI Interpretation: OverweightBody Surface Area (BSA): 2.07Weight Management Education Done (Nutrition/Physical Activity)Vital SignsTemperature: 98.2F oral Pulse Rate: 75 beats/minuteRespiratory Rate: 18 respirations/minuteBlood Pressure: 132/88 left arm sitting automaticO2 Saturation: 97% room airVital Signs performed by: Nerissa Goldberg LPN, October 24, 2019 11:15 AMVital Signs performed by: Brian MACDONALD, October 24, 2019 11:21 AMInitial Intake Information from: patientRoom #: 9Smoking, Tobacco, Vaping or Smoke Exposure StatusSmoke Status: never smokerTobacco Use: NoDo you vape? NoPassive Smoke Exposure: NoHealthcare HistorySince your last office visit...Have you been admitted to the hospital? NoHave you been to an emergency room (ER) or urgent care clinic? NoHave you seen another healthcare provider? NoHave you seen a dentist? Yes - McCueRate Your HealthIn general, would you say your health is? FairPain AssessmentAre you currently having any pain which... You would like your provider to address? Yes Affects your activity level? NoDepression Screening - PHQ-2Over the last two weeks, have you... Had little interest or pleasure in doing things? Not at all Been feeling down, depressed, or hopeless? Not at all PHQ-2 Score: 0Anxiety Screening - YASMEEN-2Over the last two weeks, have you been... Feeling nervous, anxious, or on edge? Not at all Unable to stop or control worrying? Not at all YASMEEN-2 Score: 0Infectious Disease / Travel ScreeningRecent travel for you, your family, and/or any sexual partners? NoPain AssessmentPain ScaleNumeric Rating Scale: 4 / 10Location: ULQ Duration: intermittentCharacter/Quality: sharpIs the pain radiating? NoPRAPARE Sociodemographic Characteristics Race: White Ethnicity: Not or Preferred Language: EnglishFamily and Home Address: [address] [place] [address] What is your housing situation today? I have housing Are you worried about losing your housing? NoMoney and Resources What is the highest level of school that you have finished? 9th-12th grade Employed? Yes Your current work situation? [employer] Insurance: Managed Care - [facility] Community PlanIn the past year, have you or any family members you live with been unable to get any of the following when it was really needed? Denies Insecurity: food, utilities, clothing, child care group leader, phone, legal services, otherIn the past year, have you had trouble affording costs associated with health insurance (such as deductibles, co-payments, etc.)? NoSocial and Emotional Health How often do you see or talk to people that you care about and feel close to? More than 5 times a week How stressed are you? A little bitAdditional Optional Domains In the past 3 months, have you spent more than 2 nights in a row in a long term, penitentiary, retirement center or juvenile correctional facility? No Has lack of transportation kept you from medical appointments or from getting your medications? NoIn the past year, have you had trouble getting any of the following when it was really needed (check all that apply)?noneIn the past year, have you had trouble paying the costs associated with health care or medicine (such as co-payments, costs for services, prices of medicines)? NoHow confident are you that you can control and manage most of your health problems? Very confident Are you a refugee? No ([place] Do you feel physically and emotionally safe where you live? Yes In the past year, have you been afraid of a partner, ex-partner? NoScreening, Brief Intervention, & Referral to Treatment (SBIRT)Pre-Screening Questions How many times have you have 5 or more drinks in a day? 0How many times have you used an illegal drug or used a prescription medication for a non- medical reason? 0Performed by: Nerissa Goldberg LPN, October 24, 2019 11:04 AMPatient History Medical History:hypothyroidismAsthmaSurgical History:pyloric stenosisFamily History:Diabetes (Father)Hypertension (Father)Stroke (Father)Hypertension (Mother)[place] - Male under age 55 (Paternal Grandfather)Social/Personal History: Chief Complaintestablish careHistory of Present Illness (HPI)34 yo male here to establish care. Last primary care office visit was 10/2017. No [facility] in [facility]. Pt has been consistently been taking his medications consistently for the last 6 weeks only, had stopped them for some time and restarted 6 weeks ago. Pt states he has had a pain in his LUQ that has been bothering him intermittently. Worse with movement and deep breathing. No pain when laying down. Not reproducible with pushing on the area. 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 Reports hx of asthma, previously on an inhaler. Hx of allergies requiring allergy injections as a child. Reports he is in the process of finding a new job to avoid the fumes, although he does wear the required PPEs while at work.HPI performed by: Brian MACDONALD, October 24, 2019 11:24 AMTransitions of Care InboundProblem ReviewProblem List was reviewed and/or updated during this visit.Medication Reconciliation & ReviewMedication List was reviewed and/or updated during this visit, including review of any rmvw-plg-fefwzzv medications, herbal therapies, and/or supplements.Allergy ReviewAllergy List was reviewed and/or updated during this visit.Adult Preventive CareProvider Calculated and Reviewed all Clinical Protocols for patient today. Labs/Meds/Other Counseling-Nutrition and Physical Activity:BMI Interpretation: Overweight (10/24/2019) Counseling: Done (0 10/24/2019) Physical Activity: Done (10/24/2019)Review of Systems General: Denies loss of appetite, chills, dizziness, fatigue, fever, headache, feeling ill. Eyes: Denies blurring of vision, double vision. Ears/Nose/Throat: Denies earache, decreased hearing, nasal congestion, sore throat, difficulty swallowing, swollen glands. Cardiovascular: Complains of see HPI, chest pain. Denies palpitations, feeling faint, peripheral edema, elevated blood pressure. Respiratory: Complains of see HPI, shortness of breath. Denies cough, difficulty breathing, excessive sputum, coughing up blood, wheezing. Ga strointestinal: Complains of see HPI, pain or discomfort. Denies nausea, vomiting, diarrhea, feeling any lumps or bumps, change in bowel habits, blood in stool, black or tarry stools, heartburn. Genitourinary: Denies pain with urination, burning with urination, urinary frequency, urinary hesitancy, urinary urgency, blood in urine. Musculoskeletal: Denies joint pain, muscle aches, stiffness, recent injury. Skin: Denies rash, suspicious lesions. Neurologic: Denies weakness, numbness/tingling, feeling faint. Psychiatric: Denies depression, anxiety, feeling stressed. Physical ExamGeneral Appearance: well nourished, well hydrated, no acute distressEyes, External: conjunctivae and lids normal, EOMIExternal Ears: normal, no lesions or deformitiesHearing: grossly intactOtoscopy: canals clear, tympanic membranes intact, no fluid, light reflex intact bilaterallyExternal Nose: normal, no lesions or deformitiesNasal: mucosa, septum, and turbinates normal, nares patentLips/Teeth/Gums: normal dentition, no gingival inflammation, no labial lesionsPharynx: tongue normal, posterior pharynx without erythema or exudate, no thrush/aphthous ulcerNeck: supple, no masses, trachea midline, full range of motion of neckThyroid: no nodules, masses, tenderness, or enlargementChest Wall: non-tender, no massesRespiratory, Auscultation: clear to auscultation bilaterally; no rales, rhonchi, or wheezesRespiratory, Effort: no intercostal retractions or use of accessory musclesCardiovascular, Auscultation: S1, S2 audible; no murmur, rub, or gallop; RRRPeripheral Circulation: no clubbing, cyanosis, edema, or varicositiesAbdomen: soft, non-tender, no masses, bowel sounds normalGait & Station: normalSkin, Inspection: no rashes, lesions, or ulcerationsOrientation: oriented to time, place, and personMood & Affect: no depression, anxiety, or agitationJudgment & Insight: intactCare Management Plan Transitions of CareInboundRate Your HealthIn general, would you say your health is? FairAssessment & Plan Problems:Added: Vaccination (ICD-V05.9) (QSD83-R80)Encounter for general adult medical examination with abnormal findings (ICD-V70.0) (RAP85-K81.01) Assessment: Instructions: Recommend annual medical appointments. Recommend routine dental and vision care. Recommend influenza vaccines annually and tetanus boosters every 10 years.Encounter for immunization (ICD-V05.9) (GGZ89-L66) Assessment: Instructions: Tetanus booster today.Mild intermittent asthma, uncomplicated (BAN84-H82.20) Assessment: Instructions: Trial Advair twice daily, please make sure to rinse your mouth and spit afterwords to avoid thrush (yeast infection in your mouth).Health Screening (ICD-V70.0) (RNO64-I71.9) Assessment: Instructions: Fasting labs have been ordered for you today. When labs are drawn, please ensure that you have had nothing to eat or drink for 8-10 hours prior to the blood drawn. Water or black coffee is OK to have before the blood draw.Iron deficiency (ICD-275.09) (WSQ78-N34.1) Assessment: Instructions: As above.Other specified hypothyroidism (YQP14-E12.8) Assessment: Instructions: Continue current dose, pending repeat labs.Left upper quadrant pain (ICD-789.02) (BYN42-W07.12) Assessment: Instructions: Suspect muscle. Complete labs as ordered.Patient Instructions/Care Plan: Encounter for general adult medical examination with abnormal findings: Recommend annual medical appointments. Recommend routine dental and vision care. Recommend influenza vaccines annually and tetanus boosters every 10 years.Encounter for immunization: Tetanus booster today.Mild intermittent ast hma- uncomplicated: Trial Advair twice daily, please make sure to rinse your mouth and spit afterwords to avoid thrush (yeast infection in your mouth).Health Screening: Fasting labs have been ordered for you today. When labs are drawn, please ensure that you have had nothing to eat or drink for 8-10 hours prior to the blood drawn. Water or black coffee is OK to have before the blood draw.Iron deficiency: As above.Other specified hypothyroidism: Continue current dose, pending repeat labs.Left upper quadrant pain: Suspect muscle. Complete labs as ordered. Plan developed in collaboration with patient and/or familyMedications:ADVAIR DISKUS 100-50 MCG/DOSE INHALATION AEROSOL POWDER BREATH ACTIVATEDFERROUS SULFATE 325 (65 FE) MG ORAL TABLETEUTHYROX 25 MCG ORAL TABLETMedication Changes:Added: FERROUS SULFATE 325 (65 FE) MG ORAL TABLET-1 tab po bidNew Prescription:ADVAIR DISKUS 100-50 MCG/DOSE INHALATION AEROSOL POWDER BREATH ACTIVATED-Oral inhalation twice daily Qty: 1[Inhaler] Refills: 5 Method: ElectronicEUTHYROX 25 MCG ORAL TABLET-1 tab po daily Qty: 30[Tablet] Refills: 0 Method: ElectronicAllergies:LIDOCAINE (Critical)NOVOCAIN (Critical)* SEASONAL (Moderate)ALBUTEROL SULFATE HFA (ALBUTEROL SULFATE) (Mild)Orders:Tdap (5) [CPT-39928] COMP METABOLIC PANEL [CPT-96181] CBC W/DIFF [CPT-94176] LIPID PANEL [CPT-71482] TSH [CPT-67495] T-4 free [CPT-68549] Vitamin D 250H Unspecified [CPT-50303] 28228 - Immo Admin (over 19 yrs), 1st Vaccine [CPT-96623] Preventive, New, (18-39) [CPT-96044] Follow-Up Return to clinic: in 4 weeks for follow upAdditional Follow-Up: asthma follow-upClinical Visit Summary CompletedMedications:EUTHYROX 25 MCG ORAL TABLET (LEVOTHYROXINE SODIUM) 1 tab po daily #30[Tablet] x 0 Route:ORAL Entered and Authorized by: Brian MACDONALD [facility] (retail[facility] [id number] [place] [address] Ph: [phone] Note to Pharmacy: Route: ORAL; RxID: [id number] DISKUS 100-50 MCG/DOSE INHALATION AEROSOL POWDER BREATH ACTIVATED (FLUTICASONE-SALMETEROL) Oral inhalation twice daily #1[Inhaler] x 5 Entered and Authorized by: Brian MACDONALD Method [facility] (retail[facility] [id number] [place] [address] [place] [address] Fax: Note to Pharmacy: Route: INHALATION; Indications: MILD INTERMITTENT ASTHMA, UNCOMPLICATED RxID: [id number]][Immunization Management]The patient was counseled by the physician on immunizations due, and on the risks and benefits of immunizations.Vaccines Administered/Entered:Vaccination Group: InfluenzaSeries: 1 NOT GIVENVaccination: Flucelvax Quadrivalent PF (4y+) AdultReason Not Given: Patient decisionEntered Date: 10/24/2019 12:00 AMComments: pt refusedEntered by: Nerissa Goldberg LPN Vaccination Group: TdapSeries: 1Vaccination: Boostrix - AdultMfr / Lot# / Exp.Date: [employer] / [id number] / 2Amt. Given / Route / Site: 0.5 mL / IM / Left DeltoidNDC / CVX: [id number] / 115Administered Date: 10/24/2019 11:55VFC Eligibility: Not VFC EligibleVIS Date: 10/17/2014VIS Given / VIS Given On: Yes / 10/24/2019Comments: Administered by: Nerissa Goldberg LPN Name Value Range Interpretation Code Description Data Jania rce(s) Supporting Document(s) Procedure Vital Signs ID Date Data Source UNK Name Value Range Interpretation Code Description Data Source(s) Body weight 2969.6 [oz_av] 2969.6 [oz_av] ATHEN A ([facility]) Systolic blood pressure 142 mm[Hg] 142 mm[Hg] A ABBYA ([facility]) Body mass index (BMI) [Ratio] 25.2 kg/m2 25.2 k g/m2 NORM ([facility]) Body height 72 [in_i] 72 [in_i] NORM ([facility]) Diastolic blood pressure 82 mm[Hg] 82 mm[Hg] NORM ([facility]) Body weight 2969.6 [oz_av] 2969.6 [oz_av] ATHEN A ([facility]) Systolic blood pressure 142 mm[Hg] 142 mm[Hg] A ABBYA ([facility]) Body mass index (BMI) [Ratio] 25.2 kg/m2 25.2 k g/m2 NORM ([facility]) Body height 72 [in_i] 72 [in_i] NORM ([facility]) Diastolic blood pressure 82 mm[Hg] 82 mm[Hg] NORM ([facility]) Body height 72 [in_i] 72 [in_i] NORM ([facility]) Body height 72 [in_i] 72 [in_i] NORM ([facility]) Body height 72 [in_i] 72 [in_i] NORM ([facility]) Body weight 165.00 [lb_av] 165.00 [lb_av] MEDEN T ([facility], [facility]) Body temperature 99.1 [degF] 99.1 [degF] MEDENT ([facility], [facility]) Oxygen saturation in Arterial blood by Pulse oximetry 99 % 99 % MEDENT ([facility], [facility]) Respiratory rate 16 /min 16 /min MEDENT ( [facility], [facility]) Heart rate 88 /min 88 /min MEDENT ([facility], [facility]) Diastolic blood pressure 93 mm[Hg] 93 mm[Hg] MEDENT ([facility], [facility]) Systolic blood pressure 129 mm[Hg] 129 mm[Hg] M EDENT ([facility], [facility]) Body weight 3008 [oz_av] 3008 [oz_av] NORM ([facility]) Systolic blood pressure 138 mm[Hg] 138 mm[Hg] A THENA ([facility]) Body height 72 [in_i] 72 [in_i] NORM ([facility]) Diastolic blood pressure 87 mm[Hg] 87 mm[Hg] NORM ([facility]) Body weight 3008 [oz_av] 3008 [oz_av] NORM ([facility]) Systolic blood pressure 138 mm[Hg] 138 mm[Hg] A THENA ([facility]) Body height 72 [in_i] 72 [in_i] NORM ([facility]) Diastolic blood pressure 87 mm[Hg] 87 mm[Hg] NORM ([facility]) Body weight 3008 [oz_av] 3008 [oz_av] NORM ([facility]) Systolic blood pressure 138 mm[Hg] 138 mm[Hg] A THENA ([facility]) Body height 72 [in_i] 72 [in_i] NORM ([facility]) Diastolic blood pressure 87 mm[Hg] 87 mm[Hg] NORM ([facility]) Body weight 2976 [oz_av] 2976 [oz_av] NORM ([facility]) Systolic blood pressure 132 mm[Hg] 132 mm[Hg] A THENA ([facility]) Body height 72 [in_i] 72 [in_i] NORM ([facility]) Diastolic blood pressure 88 mm[Hg] 88 mm[Hg] NORM ([facility]) Body weight 2976 [oz_av] 2976 [oz_av] NORM ([facility]) Systolic blood pressure 132 mm[Hg] 132 mm[Hg] A THENA ([facility]) Body height 72 [in_i] 72 [in_i] NORM ([facility]) Diastolic blood pressure 88 mm[Hg] 88 mm[Hg] NORM ([facility]) Body weight 2976 [oz_av] 2976 [oz_av] NORM ([facility]) Systolic blood pressure 132 mm[Hg] 132 mm[Hg] A THENA ([facility]) Body height 72 [in_i] 72 [in_i] NORM ([facility]) Diastolic blood pressure 88 mm[Hg] 88 mm[Hg] NORM ([facility]) Body mass index (BMI) [Ratio] 22.4 kg/m2 22.4 k g/m2 MEDENT ([facility], [facility]) Body height 72 [in_i] 72 [in_i] MEDENT ([facility], [facility]) 6'0" Body weight 165.00 [lb_av] 165.00 [lb_av] MEDEN T ([facility], [facility]) Body temperature 100.1 [degF] 100.1 [degF] MEDE NT ([facility], [facility]) Oxygen saturation in Arterial blood by Pulse oximetry 95 % 95 % MEDENT ([facility], [facility]) Respiratory rate 12 /min 12 /min MEDENT ( [facility], [facility]) Heart rate 102 /min 102 /min MEDENT ([facility], [facility]) Diastolic blood pressure 90 mm[Hg] 90 mm[Hg] MEDENT ([facility], [facility]) Systolic blood pressure 129 mm[Hg] 129 mm[Hg] M EDENT ([facility], [facility]) Body mass index (BMI) [Ratio] 21.7 kg/m2 21.7 k g/m2 MEDENT ([facility], [facility]) Body height 72 [in_i] 72 [in_i] MEDENT ([facility], [facility]) 6'0" Body weight 160.00 [lb_av] 160.00 [lb_av] MEDEN T ([facility], [facility]) Body temperature 98.6 [degF] 98.6 [degF] MEDENT ([facility], [facility]) Oxygen saturation in Arterial blood by Pulse oximetry 96 % 96 % MEDENT ([facility], [facility]) Respiratory rate 12 /min 12 /min MEDENT ( [facility], [facility]) Heart rate 76 /min 76 /min MEDENT ([facility], [facility]) Diastolic blood pressure 89 mm[Hg] 89 mm[Hg] MEDENT ([facility], [facility]) Systolic blood pressure 124 mm[Hg] 124 mm[Hg] M EDENT ([facility], [facility]) Patient Treatment Plan of Care Planned Activity Planned Date Details Description Data Source (s) cetirizine hydrochloride 10 MG Oral Tablet 08/29/2020 12:00:[address] NORM ([facility]) cetirizine hydrochloride 10 MG Oral Tablet 08/29/2020 12:00:[address] NORM ([facility]) Ibuprofen 800 MG Oral Tablet NORM ([facility]) Levothyroxine Sodium 0.025 MG Oral Tablet [Euthyrox] NORM ([facility]) Clindamycin 300 MG Oral Capsule NORM ([facility]) Ibuprofen 800 MG Oral Tablet NORM ([facility]) Levothyroxine Sodium 0.025 MG Oral Tablet [Euthyrox] NORM ([facility]) Clindamycin 300 MG Oral Capsule NORM ([facility]) albuterol sulfate HFA 90 mcg/actuation aerosol inhaler NORM ([facility]) Ibuprofen 800 MG Oral Tablet NORM ([facility]) Levothyroxine Sodium 0.025 MG Oral Tablet [Euthyrox] NORM ([facility]) Clindamycin 300 MG Oral Capsule NORM ([facility]) albuterol sulfate HFA 90 mcg/actuation aerosol inhaler NORM ([facility])
[2020-09-13] MEDS ORDERED: ALBU8.5H (16:40)
[2020-09-13] MEDS ORDERED: CETI-24 (16:40)
[2020-09-13] MEDS ORDERED: MONT10TA10 (16:40)
[2020-09-13] MEDS ORDERED: EUTH25TA (16:40)
--- OUTSIDE RECORDS SUMMARY | 2020-09-13 17:10 | CCD ---
Author Author [facility] Organization [facility] Address Unknown Phone Unavailable Care Team Providers Care Victorian Literature Professor Name Role Phone Scordo, M Chiqui PA [...] Unavailable LAN, SHEREEN Unavailable Unavailable Davis, Sarah MACHINERY MECHANIC Unavailable Unavailable Davis, Sarah MACHINERY MECHANIC Unavailable Unavailable Davis, Sarah MACHINERY MECHANIC Unavailable Unavailable Davis, Sarah MACHINERY MECHANIC Unavailable Unavailable Davis, Sarah MACHINERY MECHANIC Unavailable Unavailable Davis, Sarah MACHINERY MECHANIC Unavailable Unavailable Davis, Sarah MACHINERY MECHANIC Unavailable Unavailable Davis, Saarh MACHINERY MECHANIC Unavailable Unavailable Davis, Sarah MACHINERY MECHANIC Unavailable Unavailable Davis, Sarah MACHINERY MECHANIC Unavailable Unavailable Davis, Sarah MACHINERY MECHANIC Unavailable Unavailable Rosa, Phoung DMD Unavailable Unavailable [...] is protected by Article 27-F of the [facility] Public Health law. If you continue you may have access to information: Regarding HIV / AIDS; Provided by facilities licensed or operated by the [facility] Office of Mental Health; or Provided by the [facility] Office for People With Developmental Disabilities. If such information is present, then the following [facility] mandated warning applies: This information has [...] law may result in a fine or senior living sentence or both. A general authorization for the release of medical or other information is NOT sufficient authorization for further disc losure. Allergies and Adverse Reactions Type Description Substance Reaction Status Data Source(s ) Allergy to substance Allergy to substance Novocain NORM ([facility]) Allergy to substance Allergy to substance Lidocaine NORM ([facility]) Allergy to substance Allergy to substance Albuterol Sulfate NORM ([facility]) Allergy to substance Allergy to substance Novocain NORM ([facility]) Allergy to substance Allergy to substance Lidocaine NORM ([facility]) Allergy to substance Allergy to substance Albuterol Sulfate NORM ([facility]) Allergy to substance Allergy to substance Novocain NORM ([facility]) Allergy to substance Allergy to substance Lidocaine NORM ([facility]) Allergy to substance Allergy to substance Albuterol Sulfate NORM ([facility]) Drug allergy ALBUTEROL SULFATE HFA 200 ACTUAT Albuter ol 0.09 MG/ACTUAT Metered Dose Inhaler lightheadedness U [facility] Drug allergy NOVOCAIN NOVOCAIN [facility] Drug allergy LIDOCAINE LIDOCAINE [facility] Miscellaneous allergy SEASONAL SEASONAL [facility] Family History Family Member Name Family Member Gender Family Member Status Date o f Status Description Data Source(s) Unknown Unknown Problem MEDENT ([facility]) father Unknown Unknown Problem MEDENT ([facility] Encounters Encounter Providers Location Date Indications Data Source(s ) Chiqui Madera PA-C: [address], [place] [address], Ph. Attender: Chiqui MACDONALD [facility] Medical 09/06/2020 12:00:00 AM EST NORM ([facility]) Chiqui Madera PA-C: [address], [place] [address], Ph. Attender: Chiqui MACDONALD [facility] Medical 08/30/2020 12:00:00 AM EST NORM ([facility]) Chiqui Madera PA-C: [address], [place] [address], Ph. Attender: Chiqui MACDONALD [facility] Medical 08/30/2020 12:00:00 AM EST NORM ([facility]) JOSE SpencerC: [address], [place] [address], Ph. Attender: Chiqui MACDONALD [facility] Medical 08/30/2020 12:00:00 AM EST NORM ([facility]) JOSE SpencerC: [address], [place] [address], Ph. Attender: Chiqui MACDONALD [facility] Medical 08/30/2020 12:00:00 AM EST NORM ([facility]) KOSTAS MendiolaC: [address], [place] [address], Ph. Attender: SHEREEN LAN [facility] Medical 08/29/2020 12:00:00 AM EST NORM ([facility]) KOSTAS MendiolaC: [address], [place] [address], Ph. Attender: SHEREEN LAN [facility] Medical 08/29/2020 12:00:00 AM EST NORM ([facility]) Shereen Lan RPA-C: [address], [place] [address], Ph. Attender: SHEREEN LAN [facility] Medical 08/29/2020 12:00:00 AM EST NORM ([facility]) Outpatient Attender: Teena sandoval 08/21/2020 02:15:00 PM EST MEDENT ([facility]) Outpatient Attender: ERENDIRA HEDRICK [facility] 11/23 07:53:03 AM EDT [facility] Outpatient Attender: BRIAN BLANK RPA-C [facility] 12/15/2019 07:53:02 AM EDT [facility] Outpatient Attender: ERENDIRA [facility]ED[facility]ICK [facility] 11/22 08:37:02 AM EDT [facility] Outpatient Attender: BRIAN BLANK RPA-C [facility] 12/02/2019 08:37:01 AM EDT [facility] Outpatient Attender: ERENDIRA HED[facility]ICK [facility] 03/2020 04:23:01 PM EDT [facility] Outpatient Attender: BRIAN BLANK RPA-C [facility] 11/30/2019 02:56:00 PM EDT [facility] Outpatient Attender: ERENDIRA HEDRICK [facility] 10/31/2019 04:17:02 PM EDT [facility] Outpatient Attender: ERENDIRA HEDRICK [facility] 10/31/2019 01:33:03 PM EDT [facility] Outpatient Attender: BRIAN BLANK RPA-C [facility] 10/31/2019 01:33:01 PM EDT [facility] Outpatient Attender: ERENDIRA HEDRICK [facility] 10/31/2019 01:32:01 PM EDT [facility] Outpatient Attender: ERENDIRA HEDRICK [facility] 10/28/2019 10:08:00 AM [facility] Outpatient Attender: ERENDIRA HEDRICK [facility] 10/28/2019 10:03:01 AM [facility] Outpatient Attender: BRIAN BLANK RPA-C [facility] 10/26/2019 08:24:02 AM [facility] Outpatient Attender: BRIAN BLANK RPA-C [facility] 10/25/2019 12:00:25 AM [facility] Outpatient Attender: BRIAN BLANK RPA-C [facility] 10/24/2019 11:52:00 AM [facility] Outpatient Attender: BRIAN EUGENE [facility] 10/24/2019 10:51:00 AM [facility] Outpatient Attender: BRIAN EUGENE [facility] 10/24/2019 10:50:01 AM [facility] Outpatient Attender: BRIAN ABHAY EUGENE [facility] 10/24/2019 10:48:00 AM [facility] Outpatient Attender: Cheryl Rosa [facility]IG[facility] 10/24/2019 10:37:01 AM [facility] Outpatient Attender: Cheryl Rosa [facility]IGUE[facility] 10/20/2019 12:48:01 PM [facility] Outpatient Attender: Cheryl Rosa [facility]IGUE[facility] 10/19/2019 08:46:00 AM [facility] Outpatient Attender: Cheryl Rosa [facility] 10/12/2019 11:27:47 AM [facility] Outpatient Attender: Sarah odonnell 09/26/2019 08:15:00 AM EST MEDENT ([facility]) Outpatient Attender: Sarah odonnell 07/20/2019 12:30:00 PM EST MEDENT ([facility]) Immunizations Vaccine Date Status Description Data Source(s) Tdap 10/24/2019 12:00:00 AM EST completed 10/24/2019 0.5 mL NORM ([facility]) Tdap 10/24/2019 12:00:00 AM EST completed 10/24/2019 0.5 mL NORM ([facility]) Tdap 10/24/2019 12:00:00 AM EST completed 10/24/2019 0.5 mL NORM ([facility]) Medications Medication Brand Name Start Date Product Form Dose Route Admi nistrative Instructions Pharmacy Instructions Status Indications Reaction Description Data Source(s) cetirizine hydrochloride 10 MG Oral Tablet cetirizine 10 mg tablet cetirizine 10 mg tablet 08/29/2020 12:00:00 AM EST complete d cetirizine hydrochloride 10 MG Oral Tablet NORM ([facility]) cetirizine hydrochloride 10 MG Oral Tablet cetirizine 10 mg tablet cetirizine 10 mg tablet 08/29/2020 12:00:00 AM EST complete d cetirizine hydrochloride 10 MG Oral Tablet NORM ([facility]) 60 ACTUAT Albuterol 0.09 MG/ACTUAT Metered Dose Inhaler Albu terol Sulfate HFA 08/21/2020 12:00:00 AM EST RESPIRATORY active MEDENT ([facility]) Oseltamivir 75 MG Oral Capsule Oseltamivir Phosphate 09/26/2019 12:00:00 AM EST ORAL active MEDENT ( [facility]) 60 ACTUAT Albuterol 0.09 MG/ACTUAT Metered Dose Inhaler Albu terol Sulfate HFA 07/20/2019 12:00:00 AM EST RESPIRATORY completed MEDENT ([facility]) Azithromycin 250 MG Oral Tablet Azithromycin 07/20/2019 12:00:[address] ORAL completed MEDENT ([facility]) Prednisone 20 MG Oral Tablet Prednisone 07/20/2019 12:00:00 AM EST completed MEDENT ([facility]) Clindamycin 300 MG Oral Capsule clindamycin HCl 300 mg capsule clindamycin HCl 300 mg capsule completed clindam ycin 300 MG Oral Capsule NORM ([facility]) Levothyroxine Sodium 0.025 MG Oral Table t [Euthyrox] Euthyrox 25 mcg tablet TAKE 1 TABLET BY MOUTH ONCE DAILY Euthyrox 25 mcg tablet TAKE 1 TABLET BY MOUTH ONCE DAILY completed levothy roxine sodium 0.025 MG Oral Tablet [Euthyrox] NORM ([facility]) albuterol sulfate HFA 90 mcg/actuation aerosol inhaler [id number] completed [id number] 200 ACTUAT albuterol 0.09 MG/ACTUAT Metered Dose Inhaler NORM ([facility]) Clindamycin 300 MG Oral Capsule clindamycin HCl 300 mg capsule clindamycin HCl 300 mg capsule completed clindam ycin 300 MG Oral Capsule NORM ([facility]) Ibuprofen 800 MG Oral Tablet ibuprofen 8 00 mg tablet TAKE 1 TABLET BY MOUTH EVERY 6 TO 8 HOURS NEEDED ibuprofen 800 mg tablet TAKE 1 TABLET BY MOUTH EVERY 6 TO 8 HOURS NEEDED completed ibuprofen 800 MG Oral Tablet NORM ([facility]) Levothyroxine Sodium 0.025 MG Oral Table t [Euthyrox] Euthyrox 25 mcg tablet TAKE 1 TABLET BY MOUTH ONCE DAILY Euthyrox 25 mcg tablet TAKE 1 TABLET BY MOUTH ONCE DAILY completed levothy roxine sodium 0.025 MG Oral Tablet [Euthyrox] NORM ([facility]) Clindamycin 300 MG Oral Capsule clindamycin HCl 300 mg capsule clindamycin HCl 300 mg capsule completed clindam ycin 300 MG Oral Capsule NORM ([facility]) Levothyroxine Sodium 0.025 MG Oral Table t [Euthyrox] Euthyrox 25 mcg tablet TAKE 1 TABLET BY MOUTH ONCE DAILY Euthyrox 25 mcg tablet TAKE 1 TABLET BY MOUTH ONCE DAILY completed levothy roxine sodium 0.025 MG Oral Tablet [Euthyrox] NORM ([facility]) Ibuprofen 800 MG Oral Tablet ibuprofen 8 00 mg tablet TAKE 1 TABLET BY MOUTH EVERY 6 TO 8 HOURS NEEDED ibuprofen 800 mg tablet TAKE 1 TABLET BY MOUTH EVERY 6 TO 8 HOURS NEEDED completed ibuprofen 800 MG Oral Tablet NORM ([facility]) Ibuprofen 800 MG Oral Tablet ibuprofen 8 00 mg tablet TAKE 1 TABLET BY MOUTH EVERY 6 TO 8 HOURS NEEDED ibuprofen 800 mg tablet TAKE 1 TABLET BY MOUTH EVERY 6 TO 8 HOURS NEEDED completed ibuprofen 800 MG Oral Tablet NORM ([facility]) albuterol sulfate HFA 90 mcg/actuation aerosol inhaler [id number] completed [id number] 200 ACTUAT albuterol 0.09 MG/ACTUAT Metered Dose Inhaler NORM ([facility]) Insurance Providers Payer name Policy type / Coverage type Policy ID Covered republican ID Covered republican's relationship to rodgers Policy Rodgers Plan Information [facility] COMMUNITY PLAN [facility] [id number] SP [id number] [place] [id number] SP [id number] MEDICAID [id number] SP [id number] Managed Care [facility] Community Plan P [id number] S [id number] Medicaid S [id number] S [id number] Managed Care [facility] Community Plan S UNAVAILABLE S UNAVAILABLE Medicaid O UNAVAILABLE S UNAVAILA BLE Sliding Fee Scale P [id number] S [id number] SELF PAY UNAVAILABLE SP UNAVAILA BLE MEDICAID [id number] SP [id number] [facility] Health Maintenance Organization (O) [id number] Self [id number] [facility] Health Maintenance Organization (HMO) [id number] Self [id number] [facility] (HMO) [id number] Self [id number] [facility] Health Maintenance Organization (HMO) [id number] Self [id number] [facility] O [id number] S [id number] [facility] Health Maintenance Organization (HMO) [id number] Self [id number] [facility] Health Maintenance Organization (HMO) Self c Community Plan Health Maintenance Organization (HMO) Self [employer] -HMO [id number] 18 [id number] Problems, Conditions, and Diagnoses Code Display Name Description Problem Type Effective Dates Data Source(s) 009436662 Acute pharyngitis, unspecified Acute pharyngitis, unsp ecified 11/30/2019 02:54:33 PM EDT [facility] [id number] Mild intermittent asthma with (acute) ex acerbation Mild intermittent asthma with (acute) exacerbation 11/30/2019 02:54:33 PM EDT [facility] 278065734 Pharyngeal finding Pharyngeal Finding Problem 03/2020 12:00:00 AM EDT RAVENCLIFF ([facility]) [id number] Pharyngeal finding Pharyngeal Finding Problem 03/2020 12:00:00 AM EDT [place] ([facility]) 356363848 Pharyngeal finding Pharyngeal Finding Problem 03/2020 12:00:00 AM EDT [place]CL[place] ([facility]) V05.9 Vaccination Vaccination 10/26/2019 08:22:02 AM [facility] V05.9 Encounter for immunization Encounter for immunization 10/24/2019 11:50:38 AM [facility] 789.02 Left upper quadrant pain Left upper quadrant pain 10/24/2019 11:50:38 AM [facility] 560601307 Other specified hypothyroidism Other specified hypothy roidism 10/24/2019 11:50:38 AM [facility] 275.09 Iron deficiency Iron deficiency 10/24/2019 11:5 0:38 AM [facility] V70.0 Health Screening Health Screening 10/24/2019 11 :50:38 AM [facility] V70.0 Encounter for general adult medical exam ination with abnormal findings Encounter for general adult medical examination with abnormal findings 10/24/2019 11:50:38 AM EST [facility] [id number] Clinical finding Clinical Finding Problem 10/24/2019 12 :00:00 AM EST NORM ([facility]) 461214641 Procedure by method Procedure by Method Problem 0 10/24/2019 12:00:00 AM EST NORM ([facility]) [id number] Influenza vaccine needed Influenza Vaccine Needed Pro blem 10/24/2019 12:00:00 AM EST NORM ([facility]) 062502737 Left upper quadrant pain Left Upper Quadrant Pain Prob ken 10/24/2019 12:00:00 AM EST NORM ([facility]) 262761994 Exacerbation of intermittent asthma Exac erbation of Intermittent Asthma Problem 10/24/2019 12:00:00 AM EST NORM ([facility]) 36382298 Iron deficiency Iron Deficiency Problem 10/24/2019 12:0 0:00 AM EST NORM ([facility]) 05232682 Hypothyroidism Hypothyroidism Problem 10/24/2019 12:00: 00 AM EST NORM ([facility]) 538221059 Clinical finding Clinical Finding Problem 10/24/2019 12 :00:00 AM EST NORM ([facility]) 261747606 Procedure by method Procedure by Method Problem 0 10/24/2019 12:00:00 AM EST NORM ([facility]) [id number] Influenza vaccine needed Influenza Vaccine Needed Pro blem 10/24/2019 12:00:00 AM EST NORM ([facility]) 308769178 Left upper quadrant pain Left Upper Quadrant Pain Prob ken 10/24/2019 12:00:00 AM EST NORM ([facility]) 850988989 Exacerbation of intermittent asthma Exac erbation of Intermittent Asthma Problem 10/24/2019 12:00:00 AM EST NORM ([facility]) 40553049 Iron deficiency Iron Deficiency Problem 10/24/2019 12:0 0:00 AM EST NORM ([facility]) 15919284 Hypothyroidism Hypothyroidism Problem 10/24/2019 12:00: 00 AM EST NORM ([facility]) 070322796 Clinical finding Clinical Finding Problem 10/24/2019 12 :00:00 AM EST NORM ([facility]) 174181299 Procedure by method Procedure by Method Problem 0 10/24/2019 12:00:00 AM KELLY ZHENG ([facility]) [id number] Influenza vaccine needed Influenza Vaccine Needed Pro blem 10/24/2019 12:00:00 AM KELLY ZHENG ([facility]) 075335670 Left upper quadrant pain Left Upper Quadrant Pain Prob ken 10/24/2019 12:00:00 AM KELLY ZHENG ([facility]) 551381120 Exacerbation of intermittent asthma Exac erbation of Intermittent Asthma Problem 10/24/2019 12:00:00 AM KELLY ZHENG ([facility]) 85654000 Iron deficiency Iron Deficiency Problem 10/24/2019 12:0 0:00 AM KELLY ZHENG ([facility]) 44712480 Hypothyroidism Hypothyroidism Problem 10/24/2019 12:00: 00 AM KELLY AHUMADAENA ([facility]) Results ID Date Data Source [id number] 08/21/2020 12:00:00 AM EST [facility] Name Value Range Interpretation Code Description Data Jania rce(s) Supporting Document(s) SARS coronavirus 2 Ag [facility] This lab was ordered by [facility] and reported by [facility]. ID Date Data Source [id number] 11/30/2019 02:56:00 PM EDT [facility] Name Value Range Interpretation Code Description Data Jania rce(s) Supporting Document(s) THROAT CULTR NORMAL JOSE PRESENT N [facility] ID Date Data Source [id number] 11/30/2019 02:25:49 PM EDT [facility] Measurements & CalculationsHeight: 72 inches [...] History:hypothyroidismAsthmaSurgical History:pyloric stenosisFamily History:Diabetes (Father)Hypertension (Father)Stroke (Father)Hypertension (Mother)[place] - Male under age 55 (Paternal Grandfather)Social/Personal [...] during this visit, including review of any tqnf-oyp-czupazh medications, herbal therapies, and/or supplements.Allergy ReviewAllergy List [...] FairAssessment & Plan Problems:Added: Acute pharyngitis, unspecified (TTI01-F50.9) Assessment: Instructions: Negative strep in office today. Throat culture sent out, will call you if this requires antibiotics. Recommend warm salt water gargles, losanges, hot tea. Encourage plenty of fluids, soft foods such as jello and pudding. May use acetaminophen (Tylenol) or ibuprofen(Motrin) as directed on over the counter packaging, as needed for pain or inflammation.Changed:From: Dx of Mild intermittent asthma, uncomplicated (GLG08-B43.20) To: Mild intermittent asthma with (acute) exacerbation (JAN68-E57.21)Assessed:Mild intermittent asthma with (acute) exacerbation (SDQ89-C20.21) Assessment: Instructions: Start Cetirizine and Montelukast daily [...] (Moderate)ALBUTEROL SULFATE HFA (ALBUTEROL SULFATE) (Mild)Orders:Rapid Strep [CPT-24385] Throat Culture [CPT-50526] Adult - Ofc Vst, EST, Level III [CPT-68993] Follow-Up Return to clinic: as needed Clinical Visit Summary Completed A M Name Value Range Interpretation Code Description Data Jania rce(s) Supporting Document(s) ID Date Data Source [id number] 11/30/2019 02:25:49 PM EDT [facility] Name Value Range Interpretation Code Description Data Jania rce(s) Supporting Document(s) RAPID STREP negative [facility] Health ID Date Data Source [id number] 10/28/2019 09:15:00 AM EST [facility] Name Value Range Interpretation Code Description Data Jania rce(s) Supporting Document(s) HCT 50.4 % 42.0-52.0 N [facility] HGB 16.7 g/dL 13.5-17.5 N [facility] MCH 33.1 G/DL pg 32.0-36.[address] [facility] amber [facility] MCHC 29.3 PG % 27.0-33.0 N [facility] PLATELETS 265 10 10*3/mm3 150-450 N [facility] RBC 5.70 10 10*6/mm3 4.30-6.10 N [facility] RDW 12.0 % 11.5-14.5 N [facility] WBC TOTAL 5.1 4.0-10.0 N [facility] ID Date Data Source [id number] 10/28/2019 09:15:00 AM EST [facility] Name Value Range Interpretation Code Description Data Jania rce(s) Supporting Document(s) BG FASTING 98 mg/dL 70-[address] [facility] Famil y Health T4, FREE 1.00 ng/dL 0.76-1.[address] [facility] y Health TSH 2.440 microintl units/mL 0.358-3.740 N [facility] VIT D25 TOT 11.3 ng/mL 30.0-100.0 L [facility] ID Date Data Source [id number] 10/28/2019 09:12:44 AM EST [facility] Initial Intake Information from: patient Room #: 7Chief ComplaintBlood draw Pediatric Acute Intake History of Present Illness Chief Complaint: Blood draw Labs In-House Blood TestsDate/Time Collected: October 28, 2019 9:13 AMDate/Time Received: October 28, 2019 9:13 AMTest Result Reference Range Normal ValueComments: Blood drawn from Rt A/C, pt tolerated well Slantaye Rodgers [employer], October 28, 2019 9:13 AMAssessment & Plan Orders:[id number] Vst-Est Level I [CPT-12690] [id number] - Venipuncture [CPT-97452] Name Value Range Interpretation Code Description Data Jania rce(s) Supporting Document(s) ID Date Data Source [id number] 10/24/2019 10:59:07 AM [facility] Measurements & CalculationsHeight: 72 inches (6 ft. [...] or Preferred Language: EnglishFamily and Home Address: [address] [place] [address] What is your housing situation today? I have housing Are you worried about losing your housing? NoMoney and Resources What is the highest level of school that you have finished? 9th-12th grade Employed? Yes Your current work situation? FT Insurance: Managed Care - [facility] Community PlanIn the past year, have you or any family members you live with been unable to get any of the following when it was really needed? Denies Insecurity: food, utilities, clothing, childcare provider, phone, legal services, otherIn the past year, [...] 2 nights in a row in a senior living, jail, group home center or juvenile correctional facility? No Has [...] History:hypothyroidismAsthmaSurgical History:pyloric stenosisFamily History:Diabetes (Father)Hypertension (Father)Stroke (Father)Hypertension (Mother)[place] - Male under age 55 (Paternal Grandfather)Social/Personal History: Chief Complaintestablish careHistory of Present Illness (HPI)34 yo male here to establish care. Last primary care office visit was 10/2017. [facility]. Pt has been consistently been taking [...] during this visit, including review of any nyxh-uvn-vkdweek medications, herbal therapies, and/or supplements.Allergy ReviewAllergy List [...] is? FairAssessment & Plan Problems:Added: Vaccination (ICD-V05.9) (VMN97-Y51)Encounter for general adult medical examination with abnormal findings (ICD-V70.0) (ZFH34-F24.01) Assessment: Instructions: Recommend annual medical appointments. Recommend routine dental and vision care. Recommend influenza vaccines annually and tetanus boosters every 10 years.Encounter for immunization (ICD-V05.9) ([id number]) Assessment: Instructions: Tetanus booster today.Mild intermittent asthma, uncomplicated (CKZ41-U63.20) Assessment: Instructions: Trial Advair twice daily, please make sure to rinse your mouth and spit afterwords to avoid thrush (yeast infection in your mouth).Health Screening (ICD-V70.0) (AQH76-F21.9) Assessment: Instructions: Fasting labs have been ordered for you today. When labs are drawn, please ensure that you have had nothing to eat or drink for 8-10 hours prior to the blood drawn. Water or black coffee is OK to have before the blood draw.Iron deficiency (ICD-275.09) (OMC51-J59.1) Assessment: Instructions: As above.Other specified hypothyroidism (BII62-I29.8) Assessment: Instructions: Continue current dose, pending repeat labs.Left upper quadrant pain (ICD-789.02) (FSO08-V78.12) Assessment: Instructions: Suspect muscle. Complete labs as [...] (Moderate)ALBUTEROL SULFATE HFA (ALBUTEROL SULFATE) (Mild)Orders:Tdap (5) [CPT-30345] COMP METABOLIC PANEL [CPT-32414] CBC W/DIFF [CPT-28282] LIPID PANEL [CPT-14592] TSH [CPT-37251] T-4 free [CPT-91072] Vitamin D 250H Unspecified [CPT-53314] 08698 - Immo Admin (over 19 yrs), 1st Vaccine [CPT-67589] Preventive, New, (18-39) [CPT-19398] Follow-Up Return to clinic: in 4 weeks for follow upAdditional Follow-Up: asthma follow-upClinical Visit Summary CompletedMedications:EUTHYROX 25 MCG ORAL TABLET (LEVOTHYROXINE SODIUM) 1 tab po daily #30[Tablet] x 0 Route:ORAL Entered and Authorized by: Brian MACDONALD Method used: [facility] to [facility] [address] (retail) [address] [place] [address] Ph: [phone] Note to Pharmacy: Route: ORAL; RxID: [id number] DISKUS 100-50 MCG/DOSE INHALATION AEROSOL POWDER BREATH ACTIVATED (FLUTICASONE-SALMETEROL) Oral inhalation twice daily #1[Inhaler] x 5 Entered and Authorized by: Brian MACDONALD Method used: Electronically to [facility] [phone] (retail) [address] [place] [address] Fax: Note to Pharmacy: Route: INHALATION; Indications: MILD INTERMITTENT ASTHMA, UNCOMPLICATED RxID: [id number]][Immunization Management]The patient was counseled by the physician on immunizations due, and on the risks and benefits of immunizations.Vaccines Administered/Entered:Vaccination Group: InfluenzaSeries: 1 NOT GIVENVaccination: Flucelvax Quadrivalent PF (4y+) AdultReason Not Given: Patient decisionEntered Date: 10/24/2019 12:00 AMComments: pt refusedEntered by: Nerissa Goldberg LPN Vaccination Group: TdapSeries: 1Vaccination: Boostrix - AdultMfr / Lot# / Exp.Date: Just Between Friends / 745N2 / 2Amt. Given / Route / Site: 0.5 mL / IM / Left DeltoidNDC / CVX: [id number] / 115Administered Date: 10/24/2019 11:55VFC Eligibility: Not VFC EligibleVIS Date: 10/17/2014VIS Given / VIS Given On: Yes / 10/24/2019Comments: Administered by: Nerissa Goldberg LPN Name Value Range Interpretation Code Description Data Jania rce(s) Supporting Document(s) Procedure Vital Signs ID Date Data Source UNK Name Value Range Interpretation Code Description Data Source(s) Body weight 2969.6 [oz_av] 2969.6 [oz_av] ATHEN A ([facility]) Systolic blood pressure 142 mm[Hg] 142 mm[Hg] A ABBYA ([facility]) Body mass index (BMI) [Ratio] 25.2 kg/m2 25.2 k g/m2 NORM ([facility]) Body height 72 [in_i] 72 [in_i] NORM ([facility]) Diastolic blood pressure 82 mm[Hg] 82 mm[Hg] NORM ([facility]) Body weight 2969.6 [oz_av] 2969.6 [oz_av] ATHEN A ([facility]) Systolic blood pressure 142 mm[Hg] 142 mm[Hg] A ABBYA ([facility]) Body mass index (BMI) [Ratio] 25.2 kg/m2 25.2 k g/m2 NORM ([facility]) Body height 72 [in_i] 72 [in_i] NORM ([facility]) Diastolic blood pressure 82 mm[Hg] 82 mm[Hg] NORM ([facility]) Body height 72 [in_i] 72 [in_i] NORM ([facility]) Body height 72 [in_i] 72 [in_i] NORM ([facility]) Body height 72 [in_i] 72 [in_i] NORM ([facility]) Body weight 165.00 [lb_av] 165.00 [lb_av] MEDEN T ([facility], [facility]) Body temperature 99.1 [degF] 99.1 [degF] MEDENT ([facility], [facility]) Oxygen saturation in Arterial blood by Pulse oximetry 99 % 99 % MEDENT ([facility], [facility]) Respiratory rate 16 /min 16 /min MEDENT ( [facility], [facility]) Heart rate 88 /min 88 /min MEDENT ([facility], [facility]) Diastolic blood pressure 93 mm[Hg] 93 mm[Hg] MEDENT ([facility], [facility]) Systolic blood pressure 129 mm[Hg] 129 mm[Hg] M EDENT ([facility], [facility]) Body weight 3008 [oz_av] 3008 [oz_av] NORM ([facility]) Systolic blood pressure 138 mm[Hg] 138 mm[Hg] A THENA ([facility]) Body height 72 [in_i] 72 [in_i] NORM ([facility]) Diastolic blood pressure 87 mm[Hg] 87 mm[Hg] NORM ([facility]) Body weight 3008 [oz_av] 3008 [oz_av] NORM ([facility]) Systolic blood pressure 138 mm[Hg] 138 mm[Hg] A THENA ([facility]) Body height 72 [in_i] 72 [in_i] NOMR ([facility]) Diastolic blood pressure 87 mm[Hg] 87 mm[Hg] NORM ([facility]) Body weight 3008 [oz_av] 3008 [oz_av] NORM ([facility]) Systolic blood pressure 138 mm[Hg] 138 mm[Hg] A THENA ([facility]) Body height 72 [in_i] 72 [in_i] NORM ([facility]) Diastolic blood pressure 87 mm[Hg] 87 mm[Hg] NORM ([facility]) Body weight 2976 [oz_av] 2976 [oz_av] NORM ([facility]) Systolic blood pressure 132 mm[Hg] 132 mm[Hg] A THENA ([facility]) Body height 72 [in_i] 72 [in_i] NORM ([facility]) Diastolic blood pressure 88 mm[Hg] 88 mm[Hg] NORM ([facility]) Body weight 2976 [oz_av] 2976 [oz_av] NORM ([facility]) Systolic blood pressure 132 mm[Hg] 132 mm[Hg] A THENA ([facility]) Body height 72 [in_i] 72 [in_i] NORM ([facility]) Diastolic blood pressure 88 mm[Hg] 88 mm[Hg] NORM ([facility]) Body weight 2976 [oz_av] 2976 [oz_av] NORM ([facility]) Systolic blood pressure 132 mm[Hg] 132 mm[Hg] A THENA ([facility]) Body height 72 [in_i] 72 [in_i] NORM ([facility]) Diastolic blood pressure 88 mm[Hg] 88 mm[Hg] NORM ([facility]) Body mass index (BMI) [Ratio] 22.4 kg/m2 22.4 k g/m2 MEDENT ([facility], [facility]) Body height 72 [in_i] 72 [in_i] MEDENT ([facility], [facility]) 6'0" Body weight 165.00 [lb_av] 165.00 [lb_av] MEDEN T ([facility], [facility]) Body temperature 100.1 [degF] 100.1 [degF] MEDE NT ([facility], [facility]) Oxygen saturation in Arterial blood by Pulse oximetry 95 % 95 % MEDENT ([facility], [facility]) Respiratory rate 12 /min 12 /min MEDENT ( [facility], [facility]) Heart rate 102 /min 102 /min MEDENT ([facility], [facility]) Diastolic blood pressure 90 mm[Hg] 90 mm[Hg] MEDENT ([facility], [facility]) Systolic blood pressure 129 mm[Hg] 129 mm[Hg] M EDENT ([facility], [facility]) Body mass index (BMI) [Ratio] 21.7 kg/m2 21.7 k g/m2 MEDENT ([facility], [facility]) Body height 72 [in_i] 72 [in_i] MEDENT ([facility], [facility]) 6'0" Body weight 160.00 [lb_av] 160.00 [lb_av] MEDEN T ([facility], [facility]) Body temperature 98.6 [degF] 98.6 [degF] MEDENT ([facility], [facility]) Oxygen saturation in Arterial blood by Pulse oximetry 96 % 96 % MEDENT ([facility], [facility]) Respiratory rate 12 /min 12 /min MEDENT ( [facility], [facility]) Heart rate 76 /min 76 /min MEDENT ([facility], [facility]) Diastolic blood pressure 89 mm[Hg] 89 mm[Hg] MEDENT ([facility], [facility]) Systolic blood pressure 124 mm[Hg] 124 mm[Hg] M EDENT ([facility], [facility]) Patient Treatment Plan of Care Planned Activity Planned Date Details Description Data Source (s) cetirizine hydrochloride 10 MG Oral Tablet 08/29/2020 12:00:[address] NORM ([facility]) cetirizine hydrochloride 10 MG Oral Tablet 08/29/2020 12:00:[address] NORM ([facility]) Ibuprofen 800 MG Oral Tablet NORM ([facility]) Levothyroxine Sodium 0.025 MG Oral Tablet [Euthyrox] NORM ([facility]) Clindamycin 300 MG Oral Capsule NORM ([facility]) Ibuprofen 800 MG Oral Tablet NORM ([facility]) Levothyroxine Sodium 0.025 MG Oral Tablet [Euthyrox] NORM ([facility]) Clindamycin 300 MG Oral Capsule NORM ([facility]) albuterol sulfate HFA 90 mcg/actuation aerosol inhaler NORM ([facility]) Ibuprofen 800 MG Oral Tablet NORM ([facility]) Levothyroxine Sodium 0.025 MG Oral Tablet [Euthyrox] NORM ([facility]) Clindamycin 300 MG Oral Capsule NORM ([facility]) albuterol sulfate HFA 90 mcg/actuation aerosol inhaler NORM ([facility])
[2020-09-13 17:17] LABS: HEMATOCRIT 47.7 % (42.0-52.0); HEMOGLOBIN 15.8 g/dl (13.5-17.5); MEAN CORPUSCULAR HGB CONC 33.1 g/dl (32.0-36.5); MEAN CORPUSCULAR VOLUME 87.7 fl (80.0-96.0); PLATELET COUNT, AUTOMATED 284 10^3/uL (150-450); RED BLOOD COUNT 5.44 10^6/uL (4.30-6.10); WHITE BLOOD COUNT 7.6 10^3/uL (4.0-10.0)
[2020-09-13 18:08] LABS: INR 0.97; PROTHROMBIN TIME 13.1 SECONDS (12.5-14.3)
[2020-09-13 18:13] LABS: ALBUMIN 4.7 GM/DL (3.2-5.2); ALT/SGPT 29 U/L (12-78); BILIRUBIN,DIRECT < 0.1 MG/DL (0.0-0.2); BILIRUBIN,TOTAL 0.4 MG/DL (0.2-1.0); BLOOD UREA NITROGEN 10 MG/DL (7-18); CALCIUM LEVEL 9.4 MG/DL (8.5-10.1); CARBON DIOXIDE LEVEL 29 MEQ/L (21-32); CHLORIDE LEVEL 101 MEQ/L (98-107); CK-MB VALUE MASS 1.3 NG/ML (<3.6); CPK CREATINE PHOSPHOKINASE 136 U/L (39-308); CREATININE FOR GFR 1.03 MG/DL (0.70-1.30); GLOMERULAR FILTRATION RATE > 60.0 (>60); GLUCOSE, FASTING 93 MG/DL (70-100); LIPASE 179 U/L (73-393); MB/CK RELATIVE INDEX 0.96 (< OR =4); POTASSIUM SERUM 3.3 MEQ/L (3.5-5.1); SODIUM LEVEL 140 MEQ/L (136-145); TOTAL PROTEIN 8.1 GM/DL (6.4-8.2); TROPONIN I < 0.02 NG/ML (< 0.10)
--- NOTE | 2020-09-13 18:13 | REP ---
INDICATION: chest pain. COMPARISON: Comparison chest x-ray January 14, 2018. TECHNIQUE: Two views.. FINDINGS: The lungs are well inflated and free of infiltrate. The pleural angles are sharp. The heart size is normal. Pulmonary vasculature is not increased. No significant bony abnormality is seen. Monitoring electrodes are visible. IMPRESSION: Negative chest x-ray. <Electronically signed by Fidencio George > 09/13/20 [id number]
[2020-09-13 18:17] LABS: D-DIMER QUANT < 270 ng/ml (<500)
--- NOTE | 2020-09-13 18:35 | ECGEPIP ---
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
[2020-09-13] MEDS ORDERED: POTASSIUM CHLORIDE 10 MEQ SR TABLET PO ONE (18:45)
[2020-09-13 19:19] VITALS: BP 130/84
== END 2020-09-13 19:21 | disposition home or self-care (01) ==
LOC: M ED 16:29
DX: R07.9 Chest pain, unspecified (principal); R94.31 Abnormal electrocardiogram [ECG] [EKG]; E07.9 Disorder of thyroid, unspecified; Z79.890 Hormone replacement therapy; Z79.899 Other long term (current) drug therapy; Z91.048 Other nonmedicinal substance allergy status

== ENCOUNTER → 2020-10-22 | Outpatient (REF) | payer OTHER ==
[~2020-10-22] MED LIST: ALBU8.5H; CETI-24; EUTH25TA; MONT10TA10
[2020-10-22 18:14] LABS: BLOOD UREA NITROGEN 12 MG/DL (7-18); CARBON DIOXIDE LEVEL 32 MEQ/L (21-32); CHLORIDE LEVEL 104 MEQ/L (98-107); GLOMERULAR FILTRATION RATE > 60.0 (>60); GLUCOSE, FASTING 81 MG/DL (70-100); POTASSIUM SERUM 4.3 MEQ/L (3.5-5.1); SODIUM LEVEL 138 MEQ/L (136-145)
== END ==
LOC: M LAB REF 15:58
PROVIDERS: ATTEND Physician Assistant
DX: E87.6 Hypokalemia (principal)

== ENCOUNTER → 2020-10-27 | Outpatient (CLI) | payer OTHER ==
--- NOTE | 2020-10-27 13:04 | REP ---
INDICATION: UNSPECIFIED ABDOMINAL PAIN COMPARISON: None. TECHNIQUE: Supine view of the abdomen and pelvis. FINDINGS: Bowel gas pattern is nonspecific although fecal stasis cannot be excluded and should be correlated with physical examination. No evidence for obstruction or perforation. No organomegaly. No abnormal calcifications. Skeletal structures intact. IMPRESSION: Cannot exclude fecal stasis and constipation. <Electronically signed by Clem Stein > 10/27/20 [id number]
== END ==
LOC: M RAD 12:39
PROVIDERS: ATTEND Physician Assistant
DX: R10.9 Unspecified abdominal pain (principal)

== ENCOUNTER → 2021-01-08 | Outpatient (REF) | payer OTHER ==
[2021-01-08 16:44] LABS: BLOOD UREA NITROGEN 7 MG/DL (7-18); CALCIUM LEVEL 8.7 MG/DL (8.5-10.1); CARBON DIOXIDE LEVEL 32 MEQ/L (21-32); CHLORIDE LEVEL 101 MEQ/L (98-107); CHOLESTEROL LEVEL 207 MG/DL (<200); CHOLESTEROL RISK RATIO 4.813 (<5); CREATININE FOR GFR 0.89 MG/DL (0.70-1.30); FREE T4 0.71 NG/DL (0.76-1.46); GLOMERULAR FILTRATION RATE > 60.0 (>60); GLUCOSE, FASTING 77 MG/DL (70-100); HDL CHOLESTEROL 43 MG/DL (>40); LDL CHOLESTEROL 148 MG/DL (<100); NON-HDL-C 164 MG/DL; POTASSIUM SERUM 3.9 MEQ/L (3.5-5.1); SODIUM LEVEL 139 MEQ/L (136-145); TRIGLYCERIDES LEVEL 82 MG/DL (<150)
[2021-01-08 16:45] LABS: TOTAL 25(OH) VITAMIN D 11.6 NG/ML (30.0-100.0)
== END ==
LOC: M LAB REF 15:55
PROVIDERS: ATTEND Physician Assistant
DX: E55.9 Vitamin D deficiency, unspecified (principal); E78.5 Hyperlipidemia, unspecified; E87.6 Hypokalemia; E03.9 Hypothyroidism, unspecified

== ENCOUNTER 2021-07-26 20:29 | Emergency (ER) | payer OTHER ==
[~2021-07-26] VITALS: Ht 182.9 cm; Wt 81.8 kg
[2021-07-26 20:29] VITALS: BP 121/78
--- OUTSIDE RECORDS SUMMARY | 2021-07-26 20:36 | CCD | Continuity of Care Document ---
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 Name Role Phone AUTM Unavailable [employer] AUTM [phone] Problems Description No Information Available Social History Type Date Description Comments Sex Unknown ETOH Use Denies alcohol use Tobacco Use Start: Unknown Patient has never smoked Tobacco Use Start: Unknown The Patient Has Never Vaped Smoking Status Reviewed: 03/05/21 The Patient Has Never Vaped Allergies and adverse reactions Active Allergies Criticality Reaction | Severity Comments Date Penicillins Unable to assess criticality Urticaria | Moderate 07/26/2016 Lidocaine Unable to assess criticality Urticaria | Moderate 07/26/2016 Novocain Unable to assess criticality Urticaria | Moderate 07/26/2016 Amoxicillin Unable to assess criticality hives 09/12/2016 Inactive Allergies NKDA Unable to assess criticality 07/26/2016 Medications Active Medications SIG Qnty Indications Ordering Provide r Date Albuterol Sulfate HFA 108(90Base) mcg/Act Aerosol 2 puffs every 6 hours as needed for wheeze and cough 8.500gm J45.901 Hermes Ryan JR., M.D. 08/21/2020 Euthyrox 25mcg Tablets Unknown Cetirizine HCL 10mg Tablets Perri Moraes, P.ABenito Immunizations Description No Information Available Vital Signs Date Vital Result Comment 07/20/2021 1:58pm BP Systolic 126 mmHg BP Diastolic 84 mmHg Heart Rate 111 /min Respiratory Rate 16 /min O2 % BldC Oximetry 96 % Body Temperature 99.0 F Weight 165.00 lb Height 72 inches 6'0" BMI (Body Mass Index) 22.4 kg/m2 Pain Level 5 03/05/2021 4:05pm BP Systolic 138 mmHg BP Diastolic 94 mmHg Heart Rate 73 /min Respiratory Rate 16 /min O2 % BldC Oximetry 97 % Body Temperature 98.1 F Weight 175.00 lb Height 72 inches 6'0" BMI (Body Mass Index) 23.7 kg/m2 Pain Level 2 Results Description No Information Available Procedures Date Code Description Status 03/05/2021 37231 Office/Outpatient Established Lo w MDM 20-29 Min Completed 03/05/2021 68692 Remove Impact Cerumen Irrigati C ompleted Medical Devices Description No Information Available Encounters Type Date Location Provider Dx Diagnosis Office Visit 03/05/2021 3:35p Main Office Sarah Snow NP H61. 22 Impacted cerumen, left ear Assessments Date Code Description Provider 07/20/2021 J06.9 Acute upper respiratory infectio n, unspecified Sarah Snow NP 07/20/2021 U07.1 Covid-19 Sarah chan NP 03/05/2021 H61.22 Impacted cerumen, left ear Poppy Snow NP Plan of Treatment No Information Available Functional Status Description No Information Available Mental Status Description No Information Available Referrals Description No Information Available
--- OUTSIDE RECORDS SUMMARY | 2021-07-26 20:36 | CCD | Continuity of Care Document ---
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 9 Acute upper respiratory infection, unspecified U07.1 Covid-19 Office Visit 03/05/2021 3:35p Main Office Sarah [...]
--- OUTSIDE RECORDS SUMMARY | 2021-07-26 20:36 | CCD ---
Author Organization Unknown Address [address] [place] [address] Phone [phone] Care Team Providers Care Book Agent Name Role Phone Brian Shrestha Unavailable Unavailable Allergies Code Code System Name Reaction Severity Status Onset 6387 RxNorm Lidocaine Active 10/24/2019 Novocain Active 10/24/2019 723 RxNorm Amoxicillin Hives Active Penicillins Active Notes: SEASONAL Medications Name Status Start Date Stop Date albuterol sulfate HFA 90 mcg/actuation a erosol inhaler INHALE 2 PUFFS BY MOUTH EVERY 6 HOURS NEEDED FOR WHEEZING AND FOR COUGH Active Not available azithromycin 250 mg tablet TAKE 2 TABLETS BY MOUTH ON DAY 1 AND THEN TAKE 1 TABLET BY MOUTH ONCE A DAY ON DAY 2 THROUGH DAY 5 Completed 04/16/2021 cefdinir 300 mg capsule TAKE 1 CAPSULE BY MOUTH EVERY 12 HOURS FOR 5 DAYS Active Not available cetirizine 10 mg tablet TAKE 1 TABLET BY MOUTH ONCE DAILY Active Not a vailable clindamycin HCl 300 mg capsule TAKE 1 CAPSULE BY MOUTH THREE TIMES DAILY FOR 10 DAYS Completed 04/02/2021 d3 50 mcg (2000 ut) caps Active Not av ailable Euthyrox 25 mcg tablet TAKE 1 TABLET BY MOUTH ONCE DAILY Completed 03/25 Euthyrox 50 mcg tablet TAKE 1 TABLET BY MOUTH ONCE DAILY Completed 03/25 Euthyrox 75 mcg tablet TAKE 1 TABLET BY MOUTH ONCE DAILY Active Not a vailable fluticasone 113 mcg-salmeterol 14 mcg/ac tuation breath activated powdr INHALE 1 PUFF BY MOUTH TWICE DAILY RINSE MOUTH AFTER USE Active Not available ibuprofen 800 mg tablet TAKE 1 TABLET BY MOUTH EVERY 6 TO 8 HOURS NEEDED Completed 08/29/2020 Miralax 17 gram/dose oral powder Take by oral route. Completed 04/02/2021 montelukast 10 mg tablet TAKE 1 TABLET BY MOUTH ONCE DAILY AT BEDTIME Active Not available Vitamin D3 50 mcg (2,000 unit) capsule TAKE 1 CAPSULE BY MOUTH ONCE DAILY AT DINNER TIME Active Not available Problems Name Status Onset Date Source Hypothyroidism Active 10/24/2019 Iron Deficiency Unknown 10/24/2019 Exacerbation of Intermittent Asthma Unknown 10/24/2019 Left Upper Quadrant Pain Unknown 10/24/2019 Influenza Vaccine Needed Unknown 10/24/2019 Adult Health Examination Unknown 10/24/2019 Clinical Finding Unknown 10/24/2019 Pharyngeal Finding Unknown 11/30/2019 Asthma Active 01/15/2021 Procedures Date Name Performed by 10/10/2020 Exercise Stress Test Information not della ilable 10/26/2020 XR, Kidney + Ureter + Bladder Informatio n not available Notes: pyloric stenosis Results Lab Results Date Name Specimen Result Interpretation Description Value Range Status Address 04/02/2021 Culture, Throat Throat Culture, Throat see not e Final [facility]: [address] [facility] 04/02/2021 SARS CoV 2 RdRp Gene, QL Probe, Respiratory Specimen Normal Sars-cov-2 negative negative Final [facility]: [address] [facility] [address], [place] 03/11/2021 TSH + Free T4, Serum Blood venous High Tsh 4. 52 mIU/L 0.40-4.50 mIU/L [facility] [address] [facility] Blood venous Normal T4, Free 0.9 NG/dL 0.8-1.8 NG /dL Final [facility]: [address] [facility] 03/11/2021 Vitamin D, 25-Hydroxy, Total, Serum Blood venous Low Vitamin D,25-Oh,total,ia 12 NG/mL 30-100 NG/mL Final [facility]: [address] [facility] 01/08/2021 Vitamin D, 25-Hydroxy, Total, Serum Blood venous No observation recorded. 01/08/2021 TSH + Free T4, Serum Blood venous No observa tion recorded. 01/08/2021 BMP, Serum or Plasma Blood venous No observa tion recorded. 01/08/2021 Lipid Panel, Serum Blood venous No observation recorded. [facility]: [address] [facility] [address], [place] 10/22/2020 BMP, Serum or Plasma Blood venous Normal Glu cose, Fasting 81 mg/dL 70-100 mg/dL Final [facility] Ce nter: [address] [facility] Blood venous Normal Blood Urea Nitrogen 12 mg/dL 7-18 mg/dL [facility]: [address] [facility] Blood venous Normal Creatinine for GFR 1.10 mg/dL 0.70-1.30 mg/dL [facility]: [address] [facility] Blood venous Normal Glomerular Filtration Rate > 60.0 >60 [facility]: [address] [facility] Blood venous Normal Sodium Level 138 mEq/L 136-14 5 mEq/L [facility]: [address] [facility] Blood venous Normal Potassium Serum 4.3 mEq/L 3.5 -5.1 mEq/L [facility]: [address] [facility] Blood venous Normal Chloride Level 104 mEq/L 98-1 07 mEq/L [facility]: [address] [facility] Blood venous Normal Carbon Dioxide Level 32 mEq/L 21-32 mEq/L [facility]: 0 [facility] Blood venous Low Anion Gap 2 mEq/L 8-16 mEq/L [facility]: [address] [facility] Blood venous Normal Calcium Level 9.0 mg/dL 8.5-1 0.1 mg/dL [facility]: 0 [facility] 09/13/2020 Istat Chem8+ Panel Normal Istat HCT 49.0 % 38. 0-51.0 % [facility]: 0 [facility] Normal Istat Glucose 93 mg/dL 70-105 mg/dL [facility]: [address] [facility] Normal Istat Sodium 139 mEq/L 136-145 mEq/L [facility]: [address] [facility] Low Istat Potassium 3.1 mEq/L 3.5-5.1 mE q/L [facility]: 0 [facility] Normal Istat Ca++ 4.5 mg/dL 4.5-5.3 mg/dL F inal [facility]: [address] [facility] Normal Istat Chloride 101 mEq/L 98-109 mEq/ L [facility]: [address] [facility] High Istat CO2 28.0 mm/L 23.0-27.0 mm/L F inal [facility]: [address] [facility] Normal Istat BUN 10 mg/dL 8-26 mg/dL [facility]: [address] [place] [address] Normal Istat Creatinine 0.9 mg/dL 0.6-1.3 m g/dL [facility]: [address] [place] [address] 09/13/2020 Ctni Istat Normal Istat Troponin 0.00 NG/m L 0.00-0.08 NG/mL [facility]: [address] [place] [address] 09/13/2020 Cbc Normal White Blood Count 7.6 10 4.0-10. 0 10 [facility]: [address] [place] [address] Normal Red Blood Count 5.44 10 4.30-6.10 10 [facility]: [address] [place] [address] Normal Hemoglobin 15.8 g/dL 13.5-17.5 g/dL [facility]: [address] [place] [address] Normal Hematocrit 47.7 % 42.0-52.0 % [facility]: [address] [place] [address] Normal Mean Corpuscular Volume 87.7 fL 80.0 -96.0 fL [facility]: [address] [place] [address] Normal Mean Corpuscular Hemoglobin 29.0 pg 27.0-33.0 pg [facility]: [address] [place] [address] Normal Mean Corpuscular HGB Conc 33.1 g/dL 32.0-36.5 g/dL [facility]: [address] [place] [address] Normal Red Cell Distribution Width 11.9 % 1 1.5-14.5 % [facility]: [address] [place] [address] Normal Platelet Count, Automated 284 10 150 -450 10 [facility]: [address] [place] [address] Normal Nucleated Red Blood Cell % 0.0 % 0- 0 % [facility]: [address] [place], [place] [address] 09/13/2020 PT/PTT, Plasma Normal Prothrombin Time 13. 1 seconds 12.5-14.3 seconds [facility]: [address] [facility] Normal Inr 0.97 [facility]: [address] [facility] Normal Partial Thromboplastin Time 31 .0 seconds 24.2-38.5 seconds [facility]: [address] [facility] 09/13/2020 D-dimer, Quant, Plasma Normal D-dimer Quant < 270 NG/mL <500 NG/mL [facility]: [address] [facility] 09/13/2020 Cardiovascular Assessment Panel, Serum Normal CPK Creatine Phosphokinase 136 U/L 39-308 U/L [facility]: [address] [place] [address] Normal CK-mb Value Mass 1.3 NG/mL <3.6 NG/m L [facility]: 0 [facility] Normal mb/CK Relative Index 0.96 < or =4 [facility]: 0 [facility] Normal Troponin I < 0.02 NG/mL < 0.10 NG/mL [facility]: 0 [facility] 09/13/2020 Hepatic Function Panel, Serum Normal AST/SG OT 16 U/L 7-37 U/L [facility]: 0 [facility] Normal ALT/SGPT 29 U/L 12-78 U/L [facility]: [address] [facility] Normal Alkaline Phosphatase 72 U/L 45-117 U /L [facility]: 0 [facility] Normal Bilirubin,total 0.4 mg/dL 0.2-1.0 mg /dL [facility]: 0 [facility] Normal Bilirubin,direct < 0.1 mg/dL 0.0-0.2 mg/dL [facility]: 0 [facility] Normal Total Protein 8.1 gm/dL 6.4-8.2 gm/d L [facility]: 0 [facility] Normal Albumin 4.7 gm/dL 3.2-5.2 gm/dL Su l [facility]: [address] [facility] Normal Albumin/globulin Ratio 1.4 [facility]: [address] [facility] 09/13/2020 BMP, Serum or Plasma Normal Glucose, Fastin g 93 mg/dL 70-100 mg/dL [facility]: [address] [facility] Normal Blood Urea Nitrogen 10 mg/dL 7-18 mg /dL [facility]: [address] [facility] Normal Creatinine for GFR 1.03 mg/dL 0.70-1 .30 mg/dL [facility]: 0 [facility] Normal Glomerular Filtration Rate > 60.0 >6 0 [facility]: [address] [facility] Normal Sodium Level 140 mEq/L 136-145 mEq/L [facility]: 0 [facility] Low Potassium Serum 3.3 mEq/L 3.5-5.1 mE q/L [facility]: [address] [facility] Normal Chloride Level 101 mEq/L 98-107 mEq/ L [facility]: 0 [facility] Normal Carbon Dioxide Level 29 mEq/L 21-32 mEq/L [facility]: [address] [facility] Normal Anion Gap 10 mEq/L 8-16 mEq/L [facility]: [address] [facility] Normal Calcium Level 9.4 mg/dL 8.5-10.1 mg/ dL [facility]: [address] [facility] 09/13/2020 Lipase, Serum or Plasma Normal Lipase 179 U/L 73-393 U/L [facility]: [address] [facility] 09/06/2020 CBC W/ Auto Diff Blood venous Normal White Blood C ount 5.8 10 4.0-10.0 10 [facility]: [address] [facility] Blood venous Normal Red Blood Count 5.59 10 4.30- 6.10 10 [facility]: [address] [place] [address] Blood venous Normal Hemoglobin 16.3 g/dL 13.5-17. 5 g/dL [facility]: [address] [place] [address] Blood venous Normal Hematocrit 49.8 % 42.0-52.0 % [facility]: [address] [place] [address] Blood venous Normal Mean Corpuscular Volume 89.1 fL 80.0-96.0 fL [facility]: [address] [place] [address] Blood venous Normal Mean Corpuscular Hemoglob in 29.2 pg 27.0-33.0 pg [facility]: [address] [place] [address] Blood venous Normal Mean Corpuscular HGB Conc 32.7 g/dL 32.0-36.5 g/dL [facility]: [address] [place] [address] Blood venous Normal Red Cell Distribution Wid th 11.9 % 11.5-14.5 % [facility]: [address] [place] [address] Blood venous Normal Platelet Count, Automated 269 10 150-450 10 [facility]: [address] [place] [address] Blood venous Normal Neutrophils % 60.5 % 36.0-66. 0 % [facility]: [address] [place] [address] Blood venous Normal Lymph % 27.0 % 24.0-44.0 % [facility]: [address] [place] [address] Blood venous High [place]well % 8.8 % 0.0-5.0 % [facility]: [address] [place] [address] Blood venous Normal Eos % 2.4 % 0.0-3.0 % [facility]: [address] [place] [address] Blood venous Normal Baso % 1.0 % 0.0-1.0 % [facility]: [address] [place] [address] Blood venous Normal Immature Granulocyte % 0.3 % 0-3.0 % [facility]: [address] [place] [address] Blood venous Normal Nucleated Red Blood Cell % 0. 0 % 0-0 % [facility]: [address] [place] [address] Blood venous Normal Neutrophils # 3.5 10 1.5-8.5 10 [facility]: [address] [place] [address] Blood venous Normal Lymph # 1.6 10 1.5-5.0 10 [facility]: 0 [facility] Blood venous Normal [place] # 0.5 10 0.0-0.8 10 [facility]: [address] [place] [address] Blood venous Normal Eos # 0.1 10 0.0-0.5 10 [facility]: [address] [place] [address] Blood venous Normal Baso # 0.1 10 0.0-0.2 10 [facility]: [address] [place] [address] 09/06/2020 CMP, Serum or Plasma Blood venous Normal Glu cose, Fasting 82 mg/dL 70-100 mg/dL [facility] nter: [address] [place] [address] Blood venous Normal Blood Urea Nitrogen 11 mg/dL 7-18 mg/dL [facility]: [address] [place] [address] Blood venous Normal Creatinine for GFR 1.07 mg/dL 0.70-1.30 mg/dL [facility]: [address] [place] [address] Blood venous Normal Glomerular Filtration Rate > 60.0 >60 [facility]: [address] [place] [address] Blood venous Normal Sodium Level 138 mEq/L 136-14 5 mEq/L [facility]: [address] [place] [address] Blood venous Normal Potassium Serum 4.5 mEq/L 3.5 -5.1 mEq/L [facility]: [address] [place] [address] Blood venous Normal Chloride Level 101 mEq/L 98-1 07 mEq/L [facility]: [address] [place] [address] Blood venous Normal Carbon Dioxide Level 30 mEq/L 21-32 mEq/L [facility]: [address] [place] [address] Blood venous Low Anion Gap 7 mEq/L 8-16 mEq/L [facility]: [address] [place] [address] Blood venous Normal Calcium Level 9.2 mg/dL 8.5-1 0.1 mg/dL [facility]: [address] [place], [place] [address] Blood venous Normal AST/SGOT 20 U/L 7-37 U/L Su rafaela [facility]: [address] [place] [address] Blood venous Normal ALT/SGPT 38 U/L 12-78 U/L [facility]: [address] [place] [address] Blood venous Normal Alkaline Phosphatase 79 U/L 4 5-117 U/L [facility]: [address] [place] [address] Blood venous Normal Bilirubin,total 0.7 mg/dL 0.2 -1.0 mg/dL [facility]: [address] [place] [address] Blood venous Normal Total Protein 8.0 gm/dL 6.4-8 .2 gm/dL [facility]: [address] [place] [address] Blood venous Normal Albumin 4.7 gm/dL 3.2-5.2 gm/ dL [facility]: [address] [place] [address] Blood venous Normal Albumin/globulin Ratio 1.4 [facility]: [address] [place] [address] 09/06/2020 Lipid Panel, Blood Blood venous Normal Trigl ycerides Level 145 mg/dL <150 mg/dL [facility] nter: [address] [place] [address] Blood venous High Cholesterol Level 264 mg/dL < 200 mg/dL [facility]: [address] [place] [address] Blood venous Normal HDL Cholesterol 44 mg/dL >40 mg/dL [facility]: [address] [place] [address] Blood venous High LDL Cholesterol 191 mg/dL <10 0 mg/dL [facility]: [address] [place] [address] Blood venous Normal Non-hdl-c 220 mg/dL [facility]: [address] [place] [address] Blood venous High Cholesterol Risk Ratio 6.000 <5 [facility]: [address] [place] [address] 09/06/2020 TSH + Free T4, Serum Blood venous High Thyroid Stimulating Hormone 9.020 uIU/mL 0.358-3.740 uIU/mL [facility]: [address] [place] [address] Blood venous Normal Free T4 0.78 NG/dL 0.76-1.46 NG/dL Final [facility]: [address] [facility] 09/06/2020 Vitamin D, 25-Hydroxy, Total, Serum Blood venous Low Total 25(Oh) Vitamin D 15.0 NG/mL 30.0-100.0 NG/mL Final [facility]: [address] [facility] Past Encounters 06/03/2021 Hypothyroidism Brian Shrestha, RPA-C: [address] [facility] [address], [place] [address], Ph. 04/16/2021 Streptococcal Sore Throat Brian Shrestha RPA-C: [address] [facility] [address], [place] [address], Ph. 04/02/2021 Patient Informed - Test Result; Sore Throat Symptom; Counseling; Hypothyroidism; Asthma Brian Shrestha, RPA-C: [address] [facility] [address], [place] [address], Ph. 03/11/2021 Hypothyroidism; Vitamin D Deficiency Brian Shrestha RPA-C: [address] [facility] [address], [place] [address], Ph. 01/15/2021 Hypothyroidism; Hyperlipidemia; Vitamin D Deficiency; Bilateral Knee Pain; Elevated Blood-pressure [place] without Diagnosis of Hypertension Brian Shrestha RPA-C: [address] [facility] [address], [place] [address], Ph. 01/08/2021 Vitamin D Deficiency; Hyperlipidemia; Hypokalemia; Hypothyroidism Marielos Gonzales MD: [address] [facility], [facility] [address], [place] [address], Ph. 10/26/2020 Abdominal Pain Perri Moraes RPA-C: [address] [facility], [facility] [address], [place] [address], Ph. 10/22/2020 Hypokalemia KOSTAS MendiolaC: [address], [place] [address], Ph. 10/17/2020 Abdominal Pain; Irregular Bowel Habits; Hypokalemia Perri AngelesKOSTAS aburtoC: [address], [place] [address], Ph. 09/21/2020 Hyperlipidemia; Hypothyroidism; Hypokalemia; Chest Pain; Vitamin D Deficiency KOSTAS MendiolaC: [address], [place] [address], Ph. 09/06/2020 Hypothyroidism Chiqui Madera PA-C: [address], [place] [address], Ph. 08/30/2020 Acute Bronchitis Chiqui Madera PA-C: [address], [place] [address], Ph. 08/30/2020 Chiqui Madera PA-C: [address], [place] [address], Ph. 08/29/2020 Acute Upper Respiratory Infection KOSTAS MendiolaC: [address], [place] [address], Ph. Social History Tobacco Smoking Status Never Smoker Vaccine List Vaccine Type Tdap .5 mL Plan of Care Patient Instructions We are referring you to a general surg imelda to rule out a hernia. You shoudl go to the ER for any red flag symptoms. bulge that cannot be reduced, redness, severe pain, not passing gas or moving bowels, vomiting, fever WE DISCUSSED WE WILL SEE YOU FOR AN I N PERSON VISIT FOR YOUR ABDOMINAL PAIN AND NEED TO RECHECK YOUR POTASSIUM. TO ER FOR WEAKNESS, SEVERE ABDOMINAL PAIN, VOMITING, FEVER, LACK OF APPETITIE INABILITY TO KEEP DOWN FLUIDS OR OTHER WORSENING SYMPTOMS. As we discussed, we will treat you with Zithromax and have you come in tomorrow for a quick visit to check vitals and listen to your lungs. Go directly to the ER for chest pain or trouble breathing. Reminders Provider Appointments None recorded. Lab None recorded. Referral None recorded. Procedures None recorded. Surgeries None recorded. Imaging None recorded. Vitals 04/16/2021 03:10PM SAME DAY 20 Height Weight BMI Blood Pressure 72 in 178 lbs 16 oz 24.3 kg/m2 (1) 153/95 mm [Hg] (2) 126/84 mm[Hg] 04/02/2021 09:10AM ESTABLISHED [id number] Height Weight BMI Blood Pressure 72 in 185 lbs 6.4 oz 25.1 kg/m2 121/76 mm[Hg ] 01/15/2021 09:30AM ESTABLISHED [id number] Height Weight BMI Blood Pressure 72 in 184 lbs 5 oz 25 kg/m2 131/80 mm[Hg] 10/26/2020 10:10AM ESTABLISHED [id number] Height Weight BMI Blood Pressure 72 in 182 lbs 6.4 oz 24.7 kg/m2 150/86 mm[Hg ] 10/17/2020 11:50AM TELEHEALTH 20 Height 72 in 09/21/2020 02:10PM TELEHEALTH 20 Height 72 in 08/30/2020 11:50AM NURSE Height Weight BMI Blood Pressure 72 in 185 lbs 9.6 oz 25.2 kg/m2 142/82 mm[Hg ] 08/29/2020 10:50AM TELEHEALTH 20 Height 72 in 11/30/2019 Height Weight BMI Blood Pressure 72 in 188 lbs 25.59 kg/m2 138/87 mm[Hg] 10/24/2019 Height Weight BMI Blood Pressure 72 in 186 lbs 25.32 kg/m2 132/88 mm[Hg]
--- OUTSIDE RECORDS SUMMARY | 2021-07-26 20:36 | CCD ---
Author Organization Unknown Address [address] [place] [address] Phone [phone] Care Team Providers Care Bead Supervisor Name Role Phone Brian Shrestha Unavailable Unavailable [...] avai lable clindamycin HCl 300 mg capsule TAKE 1 [...] Throat Culture, Throat see not e Final [employer] [facility]: [address], [place] 04/02/2021 SARS CoV 2 RdRp Gene, QL Probe, Respiratory Specimen Normal Sars-cov-2 negative negative Final [facility]: [address] 0 [facility] [address], [place] 01/08/2021 Vitamin D, 25-Hydroxy, Total, Serum Blood venous No observation recorded. 01/08/2021 TSH + Free T4, Serum Blood venous No observa tion recorded. 01/08/2021 BMP, Serum or Plasma Blood venous No observa tion recorded. 01/08/2021 Lipid Panel, Serum Blood venous No observation recorded. [facility]: [address] [facility] [address], [place] 10/22/2020 BMP, Serum or Plasma Blood venous Normal Glu cose, Fasting 81 mg/dL 70-100 mg/dL [facility] Ce nter: [address] [facility] Blood venous Normal Blood Urea Nitrogen 12 mg/dL 7-18 mg/dL Final [facility]: [address] [facility] Blood venous Normal Creatinine for GFR 1.10 mg/dL 0.70-1.30 mg/dL [facility]: [address] [facility] Blood venous Normal Glomerular Filtration Rate > 60.0 >60 [facility]: [address] [facility] Blood venous Normal Sodium Level 138 mEq/L 136-14 5 mEq/L [facility]: [address] [facility] Blood venous Normal Potassium Serum 4.3 mEq/L 3.5 -5.1 mEq/L [facility]: [address] [facility] Blood venous Normal Chloride Level 104 mEq/L 98-1 07 mEq/L [facility]: [address] [facility] Blood venous Normal Carbon Dioxide Level 32 mEq/L 21-32 mEq/L [facility]: [address] [facility] Blood venous Low Anion Gap 2 mEq/L 8-16 mEq/L [facility]: [address] [facility] Blood venous Normal Calcium Level 9.0 mg/dL 8.5-1 0.1 mg/dL [facility]: [address] [facility] 09/13/2020 Istat Chem8+ Panel Normal Istat HCT 49.0 % 38. 0-51.0 % [facility]: [address] [facility] Normal Istat Glucose 93 mg/dL 70-105 mg/dL [facility]: [address] [facility] Normal Istat Sodium 139 mEq/L 136-145 mEq/L [facility]: [address] [facility] Low Istat Potassium 3.1 mEq/L 3.5-5.1 mE q/L [facility]: [address] [facility] Normal Istat Ca++ 4.5 mg/dL 4.5-5.3 mg/dL [facility]: [address] [facility] Normal Istat Chloride 101 mEq/L 98-109 mEq/ L [facility]: [address] [facility] High Istat CO2 28.0 mm/L 23.0-27.0 mm/L [facility]: [address] [facility] Normal Istat BUN 10 mg/dL 8-26 mg/dL [facility]: [address] [facility] Normal Istat Creatinine 0.9 mg/dL 0.6-1.3 m g/dL [facility]: [address] [facility] 09/13/2020 Ctni Istat Normal Istat Troponin 0.00 NG/m L 0.00-0.08 NG/mL [facility]: [address] [facility] 09/13/2020 Cbc Normal White Blood Count 7.6 10 4.0-10. 0 10 [facility]: [address] [facility] Normal Red Blood Count 5.44 10 4.30-6.10 10 [facility]: [address] [facility] Normal Hemoglobin 15.8 g/dL 13.5-17.5 g/dL [facility]: [address] [facility] Normal Hematocrit 47.7 % 42.0-52.0 % [facility]: [address] [facility] Normal Mean Corpuscular Volume 87.7 fL 80.0 -96.0 fL [facility]: 0 [facility] Normal Mean Corpuscular Hemoglobin 29.0 pg 27.0-33.0 pg [facility]: 0 [facility] Normal Mean Corpuscular HGB Conc 33.1 g/dL 32.0-36.5 g/dL [facility]: [address] [facility] Normal Red Cell Distribution Width 11.9 % 1 1.5-14.5 % [facility]: [address] [facility] Normal Platelet Count, Automated 284 10 150 -450 10 [facility]: [address] [facility] Normal Nucleated Red Blood Cell % 0.0 % 0- 0 % [facility]: [address] [facility] 09/13/2020 PT/PTT, Plasma Normal Prothrombin Time 13. 1 seconds 12.5-14.3 seconds [facility]: 83 0 [facility] Normal Inr 0.97 [facility]: [address] [facility] Normal Partial Thromboplastin Time 31 .0 seconds 24.2-38.5 seconds [facility]: [address] [facility] 09/13/2020 D-dimer, Quant, Plasma Normal D-dimer Quant < 270 NG/mL <500 NG/mL [facility]: 83 0 [facility] 09/13/2020 Cardiovascular Assessment Panel, Serum Normal CPK Creatine Phosphokinase 136 U/L 39-308 U/L [facility]: [address] [place] [address] Normal CK-mb Value Mass 1.3 NG/mL <3.6 NG/m L [facility]: [address] [place] [address] Normal mb/CK Relative Index 0.96 < or =4 [facility]: [address] [place] [address] Normal Troponin I < 0.02 NG/mL < 0.10 NG/mL [facility]: 0 [facility] 09/13/2020 Hepatic Function Panel, Serum Normal AST/SG OT 16 U/L 7-37 U/L [facility]: [address] [place] [address] Normal ALT/SGPT 29 U/L 12-78 U/L [facility]: [address] [place] [address] Normal Alkaline Phosphatase 72 U/L 45-117 U /L [facility]: 0 [facility] Normal Bilirubin,total 0.4 mg/dL 0.2-1.0 mg /dL [facility]: 0 [facility] Normal Bilirubin,direct < 0.1 mg/dL 0.0-0.2 mg/dL [facility]: [address] [place] [address] Normal Total Protein 8.1 gm/dL 6.4-8.2 gm/d L [facility]: 0 [facility] Normal Albumin 4.7 gm/dL 3.2-5.2 gm/dL Su l [facility]: 0 [facility] Normal Albumin/globulin Ratio 1.4 [facility]: 0 [facility] 09/13/2020 BMP, Serum or Plasma Normal Glucose, Fastin g 93 mg/dL 70-100 mg/dL [facility]: 83 0 [facility] Normal Blood Urea Nitrogen 10 mg/dL 7-18 mg /dL [facility]: 0 [facility] Normal Creatinine for GFR 1.03 mg/dL 0.70-1 .30 mg/dL [facility]: [address] [facility] Normal Glomerular Filtration Rate > 60.0 >6 0 [facility]: [address] [facility] Normal Sodium Level 140 mEq/L 136-145 mEq/L [facility]: [address] [facility] Low Potassium Serum 3.3 mEq/L 3.5-5.1 mE q/L [facility]: [address] [facility] Normal Chloride Level 101 mEq/L 98-107 mEq/ L [facility]: [address] [facility] Normal Carbon Dioxide Level 29 mEq/L 21-32 mEq/L [facility]: [address] [facility] Normal Anion Gap 10 mEq/L 8-16 mEq/L [facility]: [address] [facility] Normal Calcium Level 9.4 mg/dL 8.5-10.1 mg/ dL [facility]: [address] [facility] 09/13/2020 Lipase, Serum or Plasma Normal Lipase 179 U/L 73-393 U/L [facility]: [address] [facility] 09/06/2020 CBC W/ Auto Diff Blood venous Normal White Blood C ount 5.8 10 4.0-10.0 10 [facility]: 83 0 [facility] Blood venous Normal Red Blood Count 5.59 10 4.30- 6.10 10 [facility]: [address] [facility] Blood venous Normal Hemoglobin 16.3 g/dL 13.5-17. 5 g/dL [facility]: [address] [facility] Blood venous Normal Hematocrit 49.8 % 42.0-52.0 % [facility]: 0 [facility] Blood venous Normal Mean Corpuscular Volume 89.1 fL 80.0-96.0 fL [facility]: 0 [facility] Blood venous Normal Mean Corpuscular Hemoglob in 29.2 pg 27.0-33.0 pg [facility]: [address] [facility] Blood venous Normal Mean Corpuscular HGB Conc 32.7 g/dL 32.0-36.5 g/dL [facility]: [address] [place] [address] Blood venous Normal Red Cell Distribution Wid th 11.9 % 11.5-14.5 % [facility]: [address] [place] [address] Blood venous Normal Platelet Count, Automated 269 10 150-450 10 [facility]: [address] [place] [address] Blood venous Normal Neutrophils % 60.5 % 36.0-66. 0 % [facility]: [address] [place] [address] Blood venous Normal Lymph % 27.0 % 24.0-44.0 % [facility]: [address] [place] [address] Blood venous High Grundy % 8.8 % 0.0-5.0 % [facility]: [address] [place] [address] venous Normal Eos % 2.4 % 0.0-3.0 % [facility]: [address] [place] [address] Blood venous Normal Baso % 1.0 % 0.0-1.0 % [facility]: [address] [place] [address] Blood venous Normal Immature Granulocyte % 0.3 % 0-3.0 % [facility]: [address] [place] [address] Blood venous Normal Nucleated Red Blood Cell % 0. 0 % 0-0 % [facility]: [address] [place] [address] Blood venous Normal Neutrophils # 3.5 10 1.5-8.5 10 [facility]: [address] [place] [address] Blood venous Normal Lymph # 1.6 10 1.5-5.0 10 [facility]: [address] [place] [address] Blood venous Normal Grundy # 0.5 10 0.0-0.8 10 [facility]: [address] [place] [address] Blood venous Normal Eos # 0.1 10 0.0-0.5 10 [facility]: [address] [place] [address] Blood venous Normal Baso # 0.1 10 0.0-0.2 10 [facility]: [address] [place] [address] 09/06/2020 CMP, Serum or Plasma Blood venous Normal Glu cose, Fasting 82 mg/dL 70-100 mg/dL [facility] nter: [address] [place] [address] Blood venous Normal Blood Urea Nitrogen 11 mg/dL 7-18 mg/dL [facility]: [address] [place] [address] Blood venous Normal Creatinine for GFR 1.07 mg/dL 0.70-1.30 mg/dL [facility]: [address] [place] [address] Blood venous Normal Glomerular Filtration Rate > 60.0 >60 [facility]: [address] [place] [address] Blood venous Normal Sodium Level 138 mEq/L 136-14 5 mEq/L [facility]: [address] [place] [address] Blood venous Normal Potassium Serum 4.5 mEq/L 3.5 -5.1 mEq/L [facility]: [address] [place] [address] Blood venous Normal Chloride Level 101 mEq/L 98-1 07 mEq/L [facility]: [address] [place] [address] Blood venous Normal Carbon Dioxide Level 30 mEq/L 21-32 mEq/L [facility]: [address] [place] [address] Blood venous Low Anion Gap 7 mEq/L 8-16 mEq/L [facility]: [address] [place] [address] Blood venous Normal Calcium Level 9.2 mg/dL 8.5-1 0.1 mg/dL [facility]: 0 [facility] Blood venous Normal AST/SGOT 20 U/L 7-37 U/L [facility]: [address] [place] [address] Blood venous Normal ALT/SGPT 38 U/L 12-78 U/L [facility]: [address] [place] [address] Blood venous Normal Alkaline Phosphatase 79 U/L 4 5-117 U/L [facility]: [address] [place] [address] Blood venous Normal Bilirubin,total 0.7 mg/dL 0.2 -1.0 mg/dL [facility]: [address] [place] [address] Blood venous Normal Total Protein 8.0 gm/dL 6.4-8 .2 gm/dL [facility]: [address] [place] [address] Blood venous Normal Albumin 4.7 gm/dL 3.2-5.2 gm/ dL [facility]: [address] [place] [address] Blood venous Normal Albumin/globulin Ratio 1.4 [facility]: [address] [place] [address] 09/06/2020 Lipid Panel, Blood Blood venous Normal Trigl ycerides Level 145 mg/dL <150 mg/dL [facility] nter: [address] [place] [address] Blood venous High Cholesterol Level 264 mg/dL < 200 mg/dL [facility]: [address] [place] [address] Blood venous Normal HDL Cholesterol 44 mg/dL >40 mg/dL [facility]: [address] [place] [address] Blood venous High LDL Cholesterol 191 mg/dL <10 0 mg/dL [facility]: [address] [place] [address] Blood venous Normal Non-hdl-c 220 mg/dL [facility]: [address] [place] [address] Blood venous High Cholesterol Risk Ratio 6.000 <5 [facility]: [address] [place] [address] 09/06/2020 TSH + Free T4, Serum Blood venous High Thyroid Stimulating Hormone 9.020 uIU/mL 0.358-3.740 uIU/mL [facility] ical Center: [address] [place] [address] Blood venous Normal Free T4 0.78 NG/dL 0.76-1.46 NG/dL [facility]: [address] [place] [address] 09/06/2020 Vitamin D, 25-Hydroxy, Total, Serum Blood venous Low Total 25(Oh) Vitamin D 15.0 NG/mL 30.0-100.0 NG/mL [facility]: [address] [place] [address] Past Encounters 04/16/2021 Streptococcal Sore Throat Brian Shrestha, RPA-C: [address] [facility], [facility] [address], [place] [address], Ph. 04/02/2021 Patient Informed - Test Result; Sore Throat Symptom; Counseling; Hypothyroidism; Asthma Brian Shrestha, RPA-C: [address], [address], [place] [address], Ph. 03/11/2021 Hypothyroidism; Vitamin D Deficiency Brian Shrestha RPA-C: [address], [address], [place] [address], Ph. 01/15/2021 Hypothyroidism; Hyperlipidemia; Vitamin D Deficiency; Bilateral Knee Pain; Elevated Blood-pressure Reading without Diagnosis of Hypertension Brian Shrestha, RPA-C: [address], [address], [place] [address], Ph. 01/08/2021 Vitamin D Deficiency; Hyperlipidemia; Hypokalemia; Hypothyroidism Marielos Gonzales MD: [address], [address], [place] [address], Ph. 10/26/2020 Abdominal Pain Perriyasmani Moraes RPA-C: [address], [address], [place] [address], Ph. 10/22/2020 Hypokalemia Perriyasmani Moraes RPA-C: [address], [address], [place] [address], Ph. 10/17/2020 Abdominal Pain; Irregular Bowel Habits; Hypokalemia Perri Moraes RPA-C: [address], [address], [place] [address], Ph. 09/21/2020 Hyperlipidemia; Hypothyroidism; Hypokalemia; Chest Pain; Vitamin D Deficiency Perri Moraes RPA-C: [address], [address], [place] [address], Ph. 09/06/2020 Hypothyroidism Chiqui Madera PA-C: [address], [address], [place] [address], Ph. 08/30/2020 Chiqui Madera PA-C: [address], [address], [place] [address], Ph. 08/30/2020 Acute Bronchitis Chiqui Madera PA-C: [address], [address], [place] [address], Ph. 08/29/2020 Acute Upper Respiratory Infection VALORIE Mendiola: [address], [address], [place] [address], Ph. Social History Tobacco Smoking Status Never [...] [Hg] (2) 126/84 mm[Hg] 04/02/2021 09:10AM ESTABLISHED [id number] Height Weight BMI Blood Pressure 72 in 185 lbs 6.4 oz 25.1 kg/m2 121/76 mm[Hg ] 01/15/2021 09:30AM ESTABLISHED [id number] Height Weight BMI Blood Pressure 72 in 184 lbs 5 oz 25 kg/m2 131/80 mm[Hg] 10/26/2020 10:10AM ESTABLISHED [id number] Height Weight BMI Blood Pressure 72 in [...]
--- OUTSIDE RECORDS SUMMARY | 2021-07-26 20:36 | CCD ---
Author Organization Unknown Address [address] [place] [address] Phone [phone] Care Team Providers Care Payment Rep Name Role Phone Brian Shrestha Unavailable Unavailable [...] MOUTH EVERY 12 HOURS FOR 5 DAYS Completed 07/22/2021 cetirizine 10 mg tablet Active Not avai [...] Not a vailable fluticasone 113 mcg-salmeterol 14 mcg/actuation breath activated powdr Active Not available ibuprofen 800 mg tablet TAKE 1 TABLET BY MOUTH EVERY 6 TO 8 HOURS NEEDED Completed 08/29/2020 Miralax 17 gram/dose oral powder Take by oral route. Completed 04/02/2021 montelukast 10 mg tablet Active Not della ilable cdxusysy-neqeutsjl-fjzenccod 3.5 mg-10,000 unit/mL-1 % ear drops ,susp Active Not available Vitamin D3 50 mcg [...] Pharyngeal Finding Unknown 11/30/2019 Asthma Active 01/15/2021 Covid-19 Active 07/22/2021 Vitamin D Deficiency Active Procedures Date Name Performed by 10/10/2020 Exercise Stress Test Information not della ilable 10/26/2020 XR, Kidney + Ureter + Bladder Informatio n not available Notes: pyloric stenosis Results Lab Results Date Name Specimen Result Interpretation Description Value Range Status Address 06/03/2021 Tsh Blood venous Normal Tsh 2.95 mIU/L 0.40-4.50 mIU/L Final [employer]: [address] [facility] 04/02/2021 Culture, Throat Throat Culture, Throat see not e Final [facility]: [address] [facility] 04/02/2021 SARS CoV 2 RdRp Gene, QL Probe, Respiratory Specimen Normal Sars-cov-2 negative negative Final [facility]: [address] [facility] [address], [place] 03/11/2021 TSH + Free T4, Serum Blood venous High Tsh 4. 52 mIU/L 0.40-4.50 mIU/L [facility] [address] [facility] Blood venous Normal T4, Free 0.9 NG/dL 0.8-1.8 NG /dL Final [facility]: [address] [facility] 03/11/2021 Vitamin D, 25-Hydroxy, Total, Serum Blood venous Low Vitamin D,25-Oh,total,ia 12 NG/mL 30-100 NG/mL Final [facility]: [address] [facility] 01/08/2021 Vitamin D, 25-Hydroxy, Total, Serum Blood venous No observation recorded. 01/08/2021 TSH + Free T4, Serum Blood venous No observa tion recorded. 01/08/2021 BMP, Serum or Plasma Blood venous No observa tion recorded. 01/08/2021 Lipid Panel, Serum Blood venous No observation recorded. [facility]: [address] [facility] [address], [place] 10/22/2020 BMP, Serum or Plasma Blood venous Normal Glu cose, Fasting 81 mg/dL 70-100 mg/dL [facility] nter: [address] [facility] Blood venous Normal Blood Urea Nitrogen 12 mg/dL 7-18 mg/dL [facility]: [address] [place] [address] Blood venous Normal Creatinine for GFR 1.10 mg/dL 0.70-1.30 mg/dL [facility]: [address] [place] [address] Blood venous Normal Glomerular Filtration Rate > 60.0 >60 [facility]: [address] [place] [address] Blood venous Normal Sodium Level 138 mEq/L 136-14 5 mEq/L [facility]: [address] [place] [address] Blood venous Normal Potassium Serum 4.3 mEq/L 3.5 -5.1 mEq/L [facility]: [address] [place] [address] Blood venous Normal Chloride Level 104 mEq/L 98-1 07 mEq/L [facility]: [address] [place] [address] Blood venous Normal Carbon Dioxide Level 32 mEq/L 21-32 mEq/L [facility]: [address] [place] [address] Blood venous Low Anion Gap 2 mEq/L 8-16 mEq/L [facility]: [address] [place] [address] Blood venous Normal Calcium Level 9.0 mg/dL 8.5-1 0.1 mg/dL [facility]: [address] [place] [address] 09/13/2020 Istat Chem8+ Panel Normal Istat HCT 49.0 % 38. 0-51.0 % [facility]: 0 [facility] Normal Istat Glucose 93 mg/dL 70-105 mg/dL [facility]: [address] [place] [address] Normal Istat Sodium 139 mEq/L 136-145 mEq/L [facility]: [address] [place] [address] Low Istat Potassium 3.1 mEq/L 3.5-5.1 mE q/L [facility]: [address] [place] [address] Normal Istat Ca++ 4.5 mg/dL 4.5-5.3 mg/dL [facility]: [address] [facility] Normal Istat Chloride 101 mEq/L 98-109 mEq/ L [facility]: [address] [place] [address] High Istat CO2 28.0 mm/L 23.0-27.0 mm/L [facility]: 0 [facility] Normal Istat BUN 10 mg/dL 8-26 mg/dL [facility]: [address] [place] [address] Normal Istat Creatinine 0.9 mg/dL 0.6-1.3 m g/dL [facility]: [address] [place] [address] 09/13/2020 Ctni Istat Normal Istat Troponin 0.00 NG/m L 0.00-0.08 NG/mL [facility]: [address] [place] [address] 09/13/2020 Cbc Normal White Blood Count 7.6 10 4.0-10. 0 10 [facility]: [address] [place] [address] Normal Red Blood Count 5.44 10 4.30-6.10 10 [facility]: [address] [place] [address] Normal Hemoglobin 15.8 g/dL 13.5-17.5 g/dL [facility]: [address] [place] [address] Normal Hematocrit 47.7 % 42.0-52.0 % [facility]: [address] [place] [address] Normal Mean Corpuscular Volume 87.7 fL 80.0 -96.0 fL [facility]: [address] [place] [address] Normal Mean Corpuscular Hemoglobin 29.0 pg 27.0-33.0 pg [facility]: [address] [place] [address] Normal Mean Corpuscular HGB Conc 33.1 g/dL 32.0-36.5 g/dL [facility]: [address] [place] [address] Normal Red Cell Distribution Width 11.9 % 1 1.5-14.5 % [facility]: [address] [place] [address] Normal Platelet Count, Automated 284 10 150 -450 10 [facility]: [address] [facility] Normal Nucleated Red Blood Cell % 0.0 % 0- 0 % [facility]: [address] [facility] 09/13/2020 PT/PTT, Plasma Normal Prothrombin Time 13. 1 seconds 12.5-14.3 seconds [facility]: [address] [facility] Normal Inr 0.97 [facility]: [address] [facility] Normal Partial Thromboplastin Time 31 .0 seconds 24.2-38.5 seconds [facility]: [address] [facility] 09/13/2020 D-dimer, Quant, Plasma Normal D-dimer Quant < 270 NG/mL <500 NG/mL [facility]: [address] [facility] 09/13/2020 Cardiovascular Assessment Panel, Serum Normal CPK Creatine Phosphokinase 136 U/L 39-308 U/L [facility]: [address] [facility] Normal CK-mb Value Mass 1.3 NG/mL <3.6 NG/m L [facility]: [address] [facility] Normal mb/CK Relative Index 0.96 < or =4 [facility]: 0 [facility] Normal Troponin I < 0.02 NG/mL < 0.10 NG/mL [facility]: [address] [facility] 09/13/2020 Hepatic Function Panel, Serum Normal AST/SG OT 16 U/L 7-37 U/L [facility]: [address] [facility] Normal ALT/SGPT 29 U/L 12-78 U/L [facility]: [address] [facility] Normal Alkaline Phosphatase 72 U/L 45-117 U /L [facility]: 0 [facility] Normal Bilirubin,total 0.4 mg/dL 0.2-1.0 mg /dL [facility]: 0 [facility] Normal Bilirubin,direct < 0.1 mg/dL 0.0-0.2 mg/dL [facility]: [address] [facility] Normal Total Protein 8.1 gm/dL 6.4-8.2 gm/d L [facility]: [address] [facility] Normal Albumin 4.7 gm/dL 3.2-5.2 gm/dL Su l [facility]: [address] [facility] Normal Albumin/globulin Ratio 1.4 [facility]: [address] [facility] 09/13/2020 BMP, Serum or Plasma Normal Glucose, Fastin g 93 mg/dL 70-100 mg/dL [facility]: [address] [facility] Normal Blood Urea Nitrogen 10 mg/dL 7-18 mg /dL [facility]: 0 [facility] Normal Creatinine for GFR 1.03 mg/dL 0.70-1 .30 mg/dL [facility]: 0 [facility] Normal Glomerular Filtration Rate > 60.0 >6 0 [facility]: [address] [facility] Normal Sodium Level 140 mEq/L 136-145 mEq/L [facility]: [address] [facility] Low Potassium Serum 3.3 mEq/L 3.5-5.1 mE q/L [facility]: [address] [facility] Normal Chloride Level 101 mEq/L 98-107 mEq/ L [facility]: [address] [facility] Normal Carbon Dioxide Level 29 mEq/L 21-32 mEq/L [facility]: [address] [facility] Normal Anion Gap 10 mEq/L 8-16 mEq/L [facility]: [address] [facility] Normal Calcium Level 9.4 mg/dL 8.5-10.1 mg/ dL [facility]: [address] [facility] 09/13/2020 Lipase, Serum or Plasma Normal Lipase 179 U/L 73-393 U/L [facility]: [address] [facility] 09/06/2020 CBC W/ Auto Diff Blood venous Normal White Blood C ount 5.8 10 4.0-10.0 10 [facility]: [address] [facility] Blood venous Normal Red Blood Count 5.59 10 4.30- 6.10 10 [facility]: [address] [facility] Blood venous Normal Hemoglobin 16.3 g/dL 13.5-17. 5 g/dL [facility]: [address] [facility] Blood venous Normal Hematocrit 49.8 % 42.0-52.0 % [facility]: [address] [facility] Blood venous Normal Mean Corpuscular Volume 89.1 fL 80.0-96.0 fL [facility]: [address] [place] [address] venous Normal Mean Corpuscular Hemoglob in 29.2 pg 27.0-33.0 pg [facility]: [address] [facility] venous Normal Mean Corpuscular HGB Conc 32.7 g/dL 32.0-36.5 g/dL [facility]: [address] [facility] Blood venous Normal Red Cell Distribution Wid th 11.9 % 11.5-14.5 % [facility]: [address] [facility] Blood venous Normal Platelet Count, Automated 269 10 150-450 10 [facility]: [address] [facility] Blood venous Normal Neutrophils % 60.5 % 36.0-66. 0 % [facility]: [address] [facility] Blood venous Normal Lymph % 27.0 % 24.0-44.0 % [facility]: [address] [facility] Blood venous High Mccreary % 8.8 % 0.0-5.0 % [facility]: [address] [facility] Blood venous Normal Eos % 2.4 % 0.0-3.0 % [facility]: [address] [place] [address] Blood venous Normal Baso % 1.0 % 0.0-1.0 % [facility]: [address] [place] [address] Blood venous Normal Immature Granulocyte % 0.3 % 0-3.0 % [facility]: [address] [place] [address] Blood venous Normal Nucleated Red Blood Cell % 0. 0 % 0-0 % [facility]: [address] [place] [address] Blood venous Normal Neutrophils # 3.5 10 1.5-8.5 10 [facility]: [address] [place] [address] Blood venous Normal Lymph # 1.6 10 1.5-5.0 10 [facility]: [address] [place] [address] Blood venous Normal Mccreary # 0.5 10 0.0-0.8 10 [facility]: [address] [place] [address] Blood venous Normal Eos # 0.1 10 0.0-0.5 10 [facility]: [address] [place] [address] Blood venous Normal Baso # 0.1 10 0.0-0.2 10 [facility]: [address] [place] [address] 09/06/2020 CMP, Serum or Plasma Blood venous Normal Glu cose, Fasting 82 mg/dL 70-100 mg/dL [facility] nter: [address] [place] [address] Blood venous Normal Blood Urea Nitrogen 11 mg/dL 7-18 mg/dL [facility]: [address] [place] [address] Blood venous Normal Creatinine for GFR 1.07 mg/dL 0.70-1.30 mg/dL [facility]: [address] [place] [address] Blood venous Normal Glomerular Filtration Rate > 60.0 >60 [facility]: [address] [place] [address] Blood venous Normal Sodium Level 138 mEq/L 136-14 5 mEq/L [facility]: [address] [place] [address] Blood venous Normal Potassium Serum 4.5 mEq/L 3.5 -5.1 mEq/L [facility]: [address] [place] [address] Blood venous Normal Chloride Level 101 mEq/L 98-1 07 mEq/L [facility]: [address] [place] [address] Blood venous Normal Carbon Dioxide Level 30 mEq/L 21-32 mEq/L [facility]: [address] [place] [address] Blood venous Low Anion Gap 7 mEq/L 8-16 mEq/L [facility]: [address] [facility] Blood venous Normal Calcium Level 9.2 mg/dL 8.5-1 0.1 mg/dL [facility]: [address] [facility] Blood venous Normal AST/SGOT 20 U/L 7-37 U/L Su l [facility]: [address] [facility] Blood venous Normal ALT/SGPT 38 U/L 12-78 U/L [facility] al [facility]: [address] [facility] Blood venous Normal Alkaline Phosphatase 79 U/L 4 5-117 U/L [facility]: [address] [facility] Blood venous Normal Bilirubin,total 0.7 mg/dL 0.2 -1.0 mg/dL [facility]: [address] [facility] Blood venous Normal Total Protein 8.0 gm/dL 6.4-8 .2 gm/dL [facility]: [address] [facility] Blood venous Normal Albumin 4.7 gm/dL 3.2-5.2 gm/ dL [facility]: [address] [facility] Blood venous Normal Albumin/globulin Ratio 1.4 [facility]: 0 [facility] 09/06/2020 Lipid Panel, Blood Blood venous Normal Trigl ycerides Level 145 mg/dL <150 mg/dL [facility] nter: [address] [facility] Blood venous High Cholesterol Level 264 mg/dL < 200 mg/dL [facility]: [address] [facility] Blood venous Normal HDL Cholesterol 44 mg/dL >40 mg/dL [facility]: [address] [facility] Blood venous High LDL Cholesterol 191 mg/dL <10 0 mg/dL [facility]: [address] [facility] Blood venous Normal Non-hdl-c 220 mg/dL [facility]: [address] [facility] Blood venous High Cholesterol Risk Ratio 6.000 <5 [facility]: 0 [facility] 09/06/2020 TSH + Free T4, Serum Blood venous High Thyroid Stimulating Hormone 9.020 uIU/mL 0.358-3.740 uIU/mL Final [facility]: [address] [facility] Blood venous Normal Free T4 0.78 NG/dL 0.76-1.46 NG/dL Final [facility]: 0 [facility] 09/06/2020 Vitamin D, 25-Hydroxy, Total, Serum Blood venous Low Total 25(Oh) Vitamin D 15.0 NG/mL 30.0-100.0 NG/mL Final [facility]: [address] [facility] Past Encounters 07/22/2021 Covid-19; Hypothyroidism Brian Blake Shrestha, RPA-C: [address] [facility], [facility] [address], [place] [address], Ph. 06/03/2021 Hypothyroidism Brian D Shrestha, RPA-C: [address] [facility], [facility] [address], [place] [address], Ph. 04/16/2021 Streptococcal Sore Throat Brian Lou Shrestha, RPA-C: [address] [facility], [facility] [address], [place] [address], Ph. 04/02/2021 Patient Informed - Test Result; Sore Throat Symptom; Counseling; Hypothyroidism; Asthma Brian D Shrestha, RPA-C: [address] [facility], [facility] [address], [place] [address], Ph. 03/11/2021 Hypothyroidism; Vitamin D Deficiency Brian Blake Shrestha, RPA-C: [address] [facility], [address], [place] [address], Ph. 01/15/2021 Hypothyroidism; Hyperlipidemia; Vitamin D Deficiency; Bilateral Knee Pain; Elevated Blood-pressure Reading without Diagnosis of Hypertension Brian D Shrestha, RPA-C: [address] [facility], [facility] [address], [place] [address], Ph. 01/08/2021 Vitamin D Deficiency; Hyperlipidemia; Hypokalemia; Hypothyroidism Marielos Gonzales MD: [address], [facility] [address], [place] [address], Ph. 10/26/2020 Abdominal Pain VALORIE eMndiola: [address], [address], [place] [address], Ph. 10/22/2020 Hypokalemia VALORIE Mendiola: [address], [facility] [address], [place] [address], Ph. 10/17/2020 Abdominal Pain; Irregular Bowel Habits; Hypokalemia VALORIE Mendiola: [address], [facility] [address], [place] [address], Ph. 09/21/2020 Hyperlipidemia; Hypothyroidism; Hypokalemia; Chest Pain; Vitamin D Deficiency VALORIE Mendiola: [address], [address], [place] [address], Ph. 09/06/2020 Hypothyroidism Chiqui Madera PA-C: [address], [facility] [address], [place] [address], Ph. 08/30/2020 Acute Bronchitis Chiqui Madera PA-C: [address], [facility] [address], [place] [address], Ph. 08/30/2020 Chiqui Madera PA-C: [address], [address], [place] [address], Ph. 08/29/2020 Acute Upper Respiratory Infection VALORIE Mendiola: [address], [address], [place] [address], Ph. Social History Tobacco Smoking Status Never [...] Surgeries None recorded. Imaging None recorded. Vitals 07/22/2021 08:50AM TELEHEALTH 20 Height 72 in 04/16/2021 03:10PM SAME DAY 20 Height Weight BMI Blood Pressure 72 in 178 lbs 16 oz 24.3 kg/m2 (1) 153/95 mm [Hg] (2) 126/84 mm[Hg] 04/02/2021 09:10AM ESTABLISHED [id number] Height Weight BMI Blood Pressure 72 in 185 lbs 6.4 oz 25.1 kg/m2 121/76 mm[Hg ] 01/15/2021 09:30AM ESTABLISHED [id number] Height Weight BMI Blood Pressure 72 in 184 lbs 5 oz 25 kg/m2 131/80 mm[Hg] 10/26/2020 10:10AM ESTABLISHED [id number] Height Weight BMI Blood Pressure 72 in [...]
--- OUTSIDE RECORDS SUMMARY | 2021-07-26 20:39 | CCD ---
Author Author [facility] Organization [facility] Address Unknown Phone Unavailable Care Team Providers Care Educational Consultant Name Role Phone Davis, Sarah TRIAGE CLINICIAN Unavailable Unavailable Davis, Sarah TRIAGE CLINICIAN Unavailable Unavailable Davis, Sarah TRIAGE CLINICIAN Unavailable Unavailable Davis, Sarah TRIAGE CLINICIAN Unavailable Unavailable Davis, Sarah TRIAGE CLINICIAN Unavailable Unavailable Davis, Sarah TRIAGE CLINICIAN Unavailable Unavailable Davis, Sarah TRIAGE CLINICIAN Unavailable Unavailable Davis, Sarah TRIAGE CLINICIAN Unavailable Unavailable Davis, Sarah TRIAGE CLINICIAN Unavailable Unavailable Davis, Sarah TRIAGE CLINICIAN Unavailable Unavailable Davis, Sarah TRIAGE CLINICIAN Unavailable Unavailable Davis, Sarah TRIAGE CLINICIAN Unavailable Unavailable Davis, Sarah TRIAGE CLINICIAN Unavailable Unavailable SHRESTHA, AFSHAN BRIAN RPA-C Unavailable Unavailable SHRESTHA, AFSHAN BRIAN RPA-C Unavailable Unavailable SHRESTHA, AFSHAN BRIAN RPA-C Unavailable Unavailable SHRESTHA, AFSHAN BRIAN RPA-C Unavailable Unavailable SHRESTHA, AFSHAN BRIAN RPA-C Unavailable Unavailable SHRESTHA, AFSHAN BRIAN RPA-C Unavailable Unavailable SHRESTHA, AFSHAN BRIAN RPA-C Unavailable Unavailable SHRESTHA, AFSHAN BRIAN RPA-C Unavailable Unavailable SHRESTHA, AFSHAN BRIAN RPA-C Unavailable Unavailable SHRESTHA, AFSHAN BRIAN RPA-C Unavailable Unavailable SHRESTHA, AFSHAN BRIAN RPA-C Unavailable Unavailable SHRESTHA, AFSHAN BRIAN RPA-C Unavailable Unavailable SHRESTHA, AFSHAN BRIAN RPA-C Unavailable Unavailable SHRESTHA, AFSHAN BRIAN RPA-C Unavailable Unavailable SHRESTHA, AFSHAN BRIAN RPA-C Unavailable Unavailable SHRESTHA, AFSHAN BRIAN RPA-C Unavailable Unavailable SHRESTHA, AFSHAN BRIAN RPA-C Unavailable Unavailable SHRESTHA, AFSHAN BRIAN RPA-C Unavailable Unavailable SHRESTHA, AFSHAN BRIAN RPA-C Unavailable Unavailable SHRESTHA, AFSHAN BRIAN RPA-C Unavailable Unavailable SHRESTHA, AFSHAN BRIAN RPA-C Unavailable Unavailable SHRESTHA, AFSHAN BRIAN RPA-C Unavailable Unavailable SHRESTHA, AFSHAN BRIAN RPA-C Unavailable Unavailable SHRESTHA, AFSHAN BRIAN RPA-C Unavailable Unavailable SHRESTHA, AFSHAN BRIAN RPA-C Unavailable Unavailable SHRESTHA, AFSHAN BRIAN RPA-C Unavailable Unavailable SHRESTHA, AFSHAN BRIAN RPA-C Unavailable Unavailable SHRESTHA, AFSHAN BRIAN RPA-C Unavailable Unavailable SHRESTHA, AFSHAN BRIAN RPA-C Unavailable Unavailable SHRESTHA, AFSHAN BRIAN RPA-C Unavailable Unavailable SHRESTHA, AFSHAN BRIAN RPA-C Unavailable Unavailable SHRESTHA, AFSHAN BRIAN RPA-C Unavailable Unavailable SHRESTHA, AFSHAN BRIAN RPA-C Unavailable Unavailable SHRESTHA, AFSHAN BRIAN RPA-C Unavailable Unavailable SHRESTHA, AFSHAN BRIAN RPA-C Unavailable Unavailable SHRESTHA, AFSHAN BRIAN RPA-C Unavailable Unavailable SHRESTHA, AFSHAN BRIAN RPA-C Unavailable Unavailable SHRESTHA, AFSHAN BRIAN RPA-C Unavailable Unavailable SHRESTHA, AFSHAN BRIAN RPA-C Unavailable Unavailable SHRESTHA, AFSHAN BRIAN RPA-C Unavailable Unavailable SHRESTHA, AFSHAN BRIAN RPA-C Unavailable Unavailable SHRESTHA, AFSHAN BRIAN RPA-C Unavailable Unavailable SHRESTHA, AFSHAN BRIAN RPA-C Unavailable Unavailable Tee CLIFTON MD Unavailable Unavailable Tee CLIFTON MD Unavailable Unavailable Tee CLIFTON MD Unavailable Unavailable Tee CLFITON MD Unavailable Unavailable Tee CLIFTON MD Unavailable Unavailable Tee CLIFTON MD Unavailable Unavailable Tee CLIFTON MD Unavailable Unavailable Tee CLIFTON MD Unavailable Unavailable Tee CLIFTON MD Unavailable Unavailable Tee CLIFTON MD Unavailable Unavailable Tee CLIFTON MD Unavailable Unavailable Tee CLIFTON MD Unavailable Unavailable Tee CLIFTON MD Unavailable Unavailable Tee CLIFTON MD Unavailable Unavailable Tee CLIFTON MD Unavailable Unavailable Tee CLIFTON MD Unavailable Unavailable Tee CLIFTON MD Unavailable Unavailable Tee CLIFTON MD Unavailable Unavailable Tee CLIFTON MD Unavailable Unavailable Tee CLIFTON MD Unavailable Unavailable Tee CLIFTON MD Unavailable Unavailable Tee CLIFTON MD Unavailable Unavailable Tee CLIFTON MD Unavailable Unavailable Tee CLIFTON MD Unavailable Unavailable Janet, Taina Unavailable Unavailable Janet, Taina Unavailable Unavailable Janet, Taina Unavailable Unavailable Janet, Taina Unavailable Unavailable Janet, Taina Unavailable Unavailable Janet, Taina Unavailable Unavailable Janet, Taina Unavailable Unavailable Janet, Taina Unavailable Unavailable Janet, Taina Unavailable Unavailable Janet, Taina Unavailable Unavailable Janet, Taina Unavailable Unavailable Janet, Taina Unavailable Unavailable Janet, Taina Unavailable Unavailable Janet, Taina Unavailable Unavailable Janet, Taina Unavailable Unavailable Janet, Taina Unavailable Unavailable Janet, Taina Unavailable Unavailable Janet, Taina Unavailable Unavailable Janet, Taina Unavailable Unavailable Janet, Taina Unavailable Unavailable Janet, Taina Unavailable Unavailable Janet, Taina Unavailable Unavailable Janet, Taina Unavailable Unavailable Janet, Taina Unavailable Unavailable Janet, Taina Unavailable Unavailable Janet, Taina Unavailable Unavailable Janet, Taina Unavailable Unavailable Janet, Taina Unavailable Unavailable lAba HOANG MD Unavailable Unavailable Alba HOANG MD Unavailable Unavailable Alba HOANG MD Unavailable Unavailable Alba HOANG MD Unavailable Unavailable Alba HOANG MD Unavailable Unavailable Alba HOANG MD Unavailable Unavailable Alba HOANG MD Unavailable Unavailable Alba HOANG MD Unavailable Unavailable Alba HOANG MD Unavailable Unavailable Alba HOANG MD Unavailable Unavailable Alba HOANG MD Unavailable Unavailable Alba HOANG MD Unavailable Unavailable Alba HOANG MD Unavailable Unavailable Alba HOANG MD Unavailable Unavailable Alba HOANG MD Unavailable Unavailable NATALYAAlba GAUTHIER MD Unavailable Unavailable NATALYAAlba GAUTHIER MD Unavailable Unavailable NATALYAAlba GAUTHIER MD Unavailable Unavailable NATALYAAlba GAUTHIER MD Unavailable Unavailable NATALYAAlba GAUTHIER MD Unavailable Unavailable NATALYAAlba GAUTHIER MD Unavailable Unavailable NATALYAAlba GAUTHIER MD Unavailable Unavailable NATALYAAlba GAUTHIER MD Unavailable Unavailable NATALYA, O MELODY HARRINGTON Unavailable Unavailable NATALYA, O MELODY HARRINGTON Unavailable Unavailable NATALYA, O MELODY HARRINGTON Unavailable Unavailable NATALYA O MELODY HARRINGTON Unavailable Unavailable NATALYA, O MELODY HARRINGTON Unavailable Unavailable NATALYA O MELODY HARRINGTON Unavailable Unavailable NATALYA, O MELODY HARRINGTON Unavailable Unavailable NATALYA, O MELODY HARRINGTON Unavailable Unavailable NATALYA, O MELODY HARRINGTON Unavailable Unavailable NATALYA, O MELODY HARRINGTON Unavailable Unavailable NATALYA, O MELODY HARRINGTON Unavailable Unavailable NATALYA, O MELODY HARRINGTON Unavailable Unavailable NATALYA, O MELODY HARRINGTON Unavailable Unavailable NATALYA, O MELODY HARRINGTON Unavailable Unavailable NATALYA, O MELODY HARRINGTON Unavailable Unavailable NATALYA O MELODY HARRINGTON Unavailable Unavailable NATALYA, O MELODY HARRINGTON Unavailable Unavailable Alba HOANG MD Unavailable Unavailable NATALYA, O MELODY HARRINGTON Unavailable Unavailable NATALYAAlba GAUTHIER MD Unavailable Unavailable NATALYAAlba GAUTHIER MD Unavailable Unavailable NATALYA, O MELODY HARRINGTON Unavailable Unavailable Marley, Ayah Teena PA Unavailable Unavailable Marley, Ayah Teena PA Unavailable Unavailable Marley, Ayah Teena PA Unavailable Unavailable Marley, Ayah Teena PA Unavailable Unavailable Marley, Ayah Teena PA Unavailable Unavailable Marley, Ayah Teena PA Unavailable Unavailable Marley, Ayah Teena PA Unavailable Unavailable Marley, Ayah Teena PA Unavailable Unavailable Marley, Ayah Teena PA Unavailable Unavailable Marley, Ayah Teena PA Unavailable Unavailable James, Jam Manjeet PA Unavailable Unavailable James, Ajm Manjeet PA Unavailable Unavailable James, Jam Manjeet PA Unavailable Unavailable James, Jam Manjeet PA Unavailable Unavailable James, Jam Manjeet PA Unavailable Unavailable James, Jam Manjeet PA Unavailable Unavailable James, Jam Manjeet PA Unavailable Unavailable James, Jam Manjeet PA Unavailable Unavailable James, Jam Manjeet PA Unavailable Unavailable James, Jam Manjeet PA Unavailable Unavailable James, Jam Manjeet PA Unavailable Unavailable James, Jam Manjeet PA Unavailable Unavailable James, Jam Manjeet PA Unavailable Unavailable James, Jam Manjeet PA Unavailable Unavailable James, Jam Manjeet PA Unavailable Unavailable James, Jam Manjeet PA Unavailable Unavailable James, Jam Manjeet PA Unavailable Unavailable LAN, SHEREEN Unavailable Unavailable [...] SHEREEN Unavailable Unavailable LAN, SHEREEN Unavailable Unavailable Scordo, M Chiqui PA Unavailable [...] Unavailable Scordo, M Chiqui PA Unavailable Unavailable Re-disclosure Warning The records that [...] is protected by Article 27-F of the [facility] Public Health law. If you continue you may have access to information: Regarding HIV / AIDS; Provided by facilities licensed or operated by the [facility] Office of Mental Health; or Provided by the [facility] Office for People With Developmental Disabilities. If such information is present, then the following [facility] mandated warning applies: This information has [...] law may result in a fine or penitentiary sentence or both. A general authorization for the release of medical or other information is NOT sufficient authorization for further disc losure. Family History Family Member Name Family Member Gender Family Member Status Date o f Status Description Data Source(s) Unknown Unknown Problem MEDENT ([facility], [facility]) father Unknown Unknown Problem [facility] ([facility] Encounters Encounter Providers Location Date Indications Data Source(s ) VALORIE Watts: [address], [place] [address], Ph. Attender: BRIAN EUGENE [facility] 07/22/2021 12:00:00 AM EST NORM ([facility]) Outpatient Attender: Sarah odonnell 07/20/2021 09:25:00 AM EST [facility] ([facility], [facility]) Outpatient Attender: Manjeet MACDONALD 05/24 09:01:45 PM EDT - 06/10/2021 09:22:55 PM EDT DocuTap ([facility] ) VALORIE Watts: [address], [place] [address], Ph. Attender: BRIAN EUGENE [facility] 06/03/2021 12:00:00 AM EDT NORM ([facility]) VALORIE Watts: [address], [place] [address], Ph. Attender: BRIAN EUGENE [facility] 06/03/2021 12:00:00 AM EDT NORM ([facility]) Brian Shrestha, RPA-C: [address], [place] [address], Ph. Attender: BRIAN SHRESTHA RPA-C [facility] 04/16/2021 12:00:00 AM EDT NORM ([facility]) Brian Shrestha, RPA-C: [address], [place] [address], Ph. Attender: BRIAN SHRESTHA RPA-C [facility] 04/16/2021 12:00:00 AM EDT NORM ([facility]) Brian Shrestha, RPA-C: [address], [place] [address], Ph. Attender: BRIAN SHRESTHA RPA-C [facility] 04/16/2021 12:00:00 AM EDT NORM ([facility]) Brian Shrestha, RPA-C: [address], [place] [address], Ph. Attender: BRIAN SHRESTHA RPA-C [facility] 04/02/2021 12:00:00 AM EDT NORM ([facility]) Brian Shrestha, RPA-C: [address], [place] [address], Ph. Attender: BRIAN SHRESTHA RPA-C [facility] 04/02/2021 12:00:00 AM EDT NORM ([facility]) Brian Shrestha, RPA-C: [address], [place] [address], Ph. Attender: BRIAN SHRESTHA RPA-C [facility] 04/02/2021 12:00:00 AM EDT NORM ([facility]) Brian Shrestha RPA-C: [address], [place] [address], Ph. Attender: BRIAN SHRESTHA RPA-C [facility] 04/02/2021 12:00:00 AM EDT NORM ([facility]) Brian Shrestha RPA-C: [address], [place] [address], Ph. Attender: BRIAN SHRESTHA RPA-C [facility] 03/11/2021 12:00:00 AM EDT NORM ([facility]) Brian Shrestha RPA-C: [address], [place] [address], Ph. Attender: BRIAN SHRESTHA RPA-C [facility] 03/11/2021 12:00:00 AM EDT NORM ([facility]) Brian Shrestha RPA-C: [address], [place] [address], Ph. Attender: BRIAN SHRESTHA RPA-C [facility] 03/11/2021 12:00:00 AM EDT NORM ([facility]) Brian Shrestha, RPA-C: [address], [place] [address], Ph. Attender: BRIAN SHRESTHA RPA-C [facility] 03/11/2021 12:00:00 AM EDT NORM ([facility]) Brian Shrestha RPA-C: [address], [place] [address], Ph. Attender: BRIAN KENYONC [facility] 03/11/2021 12:00:00 AM EDT NORM ([facility]) Outpatient Attender: Sarah odonnell 03/05/2021 03:35:00 PM EDT MEDENT ([facility], [facility]) Outpatient Attender: ROSEMARIE CLIFTON MD 03/01 03:14:16 PM EDT - 03/01/2021 04:34:40 PM EDT DocuTap ([facility] ) Brian Shrestha RPA-C: [address], [place] [address], Ph. Attender: BRIAN EUGENE [facility] 01/15/2021 12:00:00 AM EDT NORM ([facility]) Brian Shrestha RPA-C: [address], [place] [address], Ph. Attender: BRIAN EUGENE [facility] 01/15/2021 12:00:00 AM EDT NORM ([facility]) Brian Shrestha RPA-C: [address], [place] [address], Ph. Attender: BRIAN KENYONC [facility] 01/15/2021 12:00:00 AM EDT NORM ([facility]) Brian Shrestha RPA-C: [address], [place] [address], Ph. Attender: BRIAN SHRESTHA RPA-C [facility] 01/15/2021 12:00:00 AM EDT NORM ([facility]) Brian Shrestha RPA-C: [address], [place] [address], Ph. Attender: BRIAN KENYONC [facility] 01/15/2021 12:00:00 AM EDT NORM ([facility]) Brian Shrestha RPA-C: [address], [place] [address], Ph. Attender: BRIAN KENYONC [facility] 01/15/2021 12:00:00 AM EDT NORM ([facility]) Marielos Gonzales MD: [address], [place] [address], Ph. Attender: Marielos Gonzales [facility] 01/08/2021 12:00:00 AM EDT NORM ([facility]) Marielos Gonzales MD: [address], [place] [address], Ph. Attender: Marielos Gonzales [facility] 01/08/2021 12:00:00 AM EDT NORM ([facility]) Marielos Gonzales MD: [address], [place] [address], Ph. Attender: Marielos Gonzales [facility] 01/08/2021 12:00:00 AM EDT NORM ([facility]) Marielos Gonzales MD: [address], [place] [address], Ph. Attender: Taina Janet [facility] 01/08/2021 12:00:00 AM EDT NORM ([facility]) Marielos Gonzales MD: [address], [place] [address], Ph. Attender: Marielos Gonzales [facility] 01/08/2021 12:00:00 AM EDT NORM ([facility]) Marielos Gonzales MD: [address], [place] [address], Ph. Attender: Marielos Gonzales [facility] 01/08/2021 12:00:00 AM EDT NORM ([facility]) Marielos Gonzales MD: [address], [place] [address], Ph. Attender: Marielos Gonzales [facility] Medical 01/08/2021 12:00:00 AM EDT NORM ([facility]) Outpatient Attender: MELODY Boone/Ananda/Nam/Celi indl 11/07/2020 01:00:00 PM EDT MEDTONY ([facility], ) Shereen Lan RPA-C: [address], [place] [address], Ph. Attender: SHEREEN LAN [facility] Medical 10/26/2020 12:00:00 AM EST NORM ([facility]) Shereen Lan RPA-C: [address], [place] [address], Ph. Attender: SHEREEN LAN [facility] Medical 10/26/2020 12:00:00 AM EST NORM ([facility]) Shereen Lan RPA-C: [address], [place] [address], Ph. Attender: SHEREEN LAN [facility] Medical 10/26/2020 12:00:00 AM EST NORM ([facility]) Shereen Lan RPA-C: [address], [place] [address], Ph. Attender: SHEREEN LAN [facility] Medical 10/26/2020 12:00:00 AM EST NORM ([facility]) Shereen Lan RPA-C: [address], [place] [address], Ph. Attender: SHEREEN LAN [facility] Medical 10/26/2020 12:00:00 AM EST NORM ([facility]) Shereen Lan RPA-C: [address], [place] [address], Ph. Attender: SHEREEN LAN [facility] Medical 10/26/2020 12:00:00 AM EST NORM ([facility]) Shereen Lan RPA-C: [address], [place] [address], Ph. Attender: SHEREEN LAN [facility] Medical 10/26/2020 12:00:00 AM EST NORM ([facility]) Shereen Lan RPA-C: [address], [place] [address], Ph. Attender: SEHREEN LAN [facility] Medical 10/26/2020 12:00:00 AM EST NORM ([facility]) Shereen Lan RPA-C: [address], [place] [address], Ph. Attender: SHEREEN LAN [facility] 10/26/2020 12:00:00 AM EST NORM ([facility]) KOSTAS MendiolaC: [address], [place] [address], Ph. Attender: SHEREEN LAN [facility] 10/22/2020 12:00:00 AM EST NORM ([facility]) KOSTAS MendiolaC: [address], [place] [address], Ph. Attender: SHEREEN LAN [facility] 10/22/2020 12:00:00 AM EST NORM ([facility]) KOSTAS MendiolaC: [address], [place] [address], Ph. Attender: SHEREEN LAN [facility] 10/22/2020 12:00:00 AM EST NORM ([facility]) KOSTAS MendiolaC: [address], [place] [address], Ph. Attender: SHEREEN LAN [facility] 10/22/2020 12:00:00 AM EST NORM ([facility]) KOSTAS MendiolaC: [address], [place] [address], Ph. Attender: HSEREEN LAN [facility] 10/22/2020 12:00:00 AM EST NORM ([facility]) Shereen Lan RPA-C: [address], [place] [address], Ph. Attender: SHEREEN LAN [facility] 10/22/2020 12:00:00 AM EST NORM ([facility]) Shereen Lan RPA-C: [address], [place] [address], Ph. Attender: SHEREEN LAN [facility] 10/22/2020 12:00:00 AM EST NORM ([facility]) KOSTAS MendiolaC: [address], [place] [address], Ph. Attender: SHEREEN LAN [facility] 10/22/2020 12:00:00 AM EST NORM ([facility]) KOSTAS MendiolaC: [address], [place] [address], Ph. Attender: SHEREEN LAN [facility] 10/22/2020 12:00:00 AM EST NORM ([facility]) Shreeen Lan RPA-C: [address], [place] [address], Ph. Attender: SHEREEN LAN [facility] 10/22/2020 12:00:00 AM EST NORM ([facility]) Shereen Lan RPA-C: [address], [place] [address], Ph. Attender: SHEREEN LAN [facility] 10/17/2020 12:00:00 AM EST NORM ([facility]) Shereen Lan RPA-C: [address], [place] [address], Ph. Attender: SHEREEN LAN [facility] 10/17/2020 12:00:00 AM EST NORM ([facility]) Shereen Lan RPA-C: [address], [place] [address], Ph. Attender: SHEREEN LAN [facility] 10/17/2020 12:00:00 AM EST NORM ([facility]) KOSTAS MendiolaC: [address], [place] [address], Ph. Attender: SHEREEN LAN [facility] 10/17/2020 12:00:00 AM EST NORM ([facility]) KOSTAS MendiolaC: [address], [place] [address], Ph. Attender: SHEREEN LAN [facility] 10/17/2020 12:00:00 AM EST NORM ([facility]) Shereen Lan RPA-C: [address], [place] [address], Ph. Attender: SHEREEN LAN [facility] Medical 10/17/2020 12:00:00 AM EST NORM ([facility]) Shereen Lan RPA-C: [address], [place] [address], Ph. Attender: SHEREEN LAN [facility] 10/17/2020 12:00:00 AM EST NORM ([facility]) Shereen Lan RPA-C: [address], [place] [address], Ph. Attender: SHEREEN LAN [facility] 10/17/2020 12:00:00 AM EST NORM ([facility]) Shereen Lan RPA-C: [address], [place] [address], Ph. Attender: SHEREEN LAN [facility] 10/17/2020 12:00:00 AM EST NORM ([facility]) Shereen Lan RPA-C: [address], [place] [address], Ph. Attender: SHEREEN LAN [facility] 10/17/2020 12:00:00 AM EST NORM ([facility]) Shereen Lan RPA-C: [address], [place] [address], Ph. Attender: SHEREEN LAN [facility] Medical 10/17/2020 12:00:00 AM EST NORM ([facility]) Shereen Lan RPA-C: [address], [place] [address], Ph. Attender: SHEREEN LAN [facility] 09/21/2020 12:00:00 AM EST NORM ([facility]) Shereen Lan RPA-C: [address], [place] [address], Ph. Attender: SHEREEN LAN [facility] Medical 09/21/2020 12:00:00 AM EST NORM ([facility]) Shereen Lan RPA-C: [address], [place] [address], Ph. Attender: SHEREEN LAN [facility] Medical 09/21/2020 12:00:00 AM EST NORM ([facility]) Shereen Lan RPA-C: [address], [place] [address], Ph. Attender: SHEREEN LAN [facility] Medical 09/21/2020 12:00:00 AM EST NORM ([facility]) KOSTAS MendiolaC: [address], [place] [address], Ph. Attender: SHEREEN LAN [facility] Medical 09/21/2020 12:00:00 AM EST NORM ([facility]) KOSTAS MendiolaC: [address], [place] [address], Ph. Attender: SHEREEN LAN [facility] Medical 09/21/2020 12:00:00 AM EST NORM ([facility]) Shereen Lan RPA-C: [address], [place] [address], Ph. Attender: SHEREEN LAN [facility] Medical 09/21/2020 12:00:00 AM EST NORM ([facility]) Shereen Lan RPA-C: [address], [place] [address], Ph. Attender: SHEREEN LAN [facility] Medical 09/21/2020 12:00:00 AM EST NORM ([facility]) Shereen Lan RPA-C: [address], [place] [address], Ph. Attender: SHEREEN LAN [facility] Medical 09/21/2020 12:00:00 AM EST NORM ([facility]) KOSTAS MendiolaC: [address], [address], [place] [address], Ph. Attender: SHEREEN LAN [facility] Medical 09/21/2020 12:00:00 AM EST NORM ([facility]) KOSTAS MendiolaC: [address], [place] [address], Ph. Attender: SHEREEN LAN [facility] Medical 09/21/2020 12:00:00 AM EST NORM ([facility]) KOSTAS MendiolaC: [address], [place] [address], Ph. Attender: SHEREEN LAN [facility] Medical 09/21/2020 12:00:00 AM EST NORM ([facility]) Chiqui Madera PA-C: [address], [place] [address], Ph. Attender: Chiqui [facility] Medical 09/06/2020 12:00:00 AM EST NORM ([facility]) Chiqui Madera PA-C: [address], [place] [address], Ph. Attender: Chiqui [facility] Medical 09/06/2020 12:00:00 AM EST NORM ([facility]) Chiqui Madera PA-C: [address], [place] [address], Ph. Attender: Chiqui [facility] Medical 09/06/2020 12:00:00 AM EST NORM ([facility]) Chiqui Madera PA-C: [address], [place] [address], Ph. Attender: Chiqui [facility] Medical 09/06/2020 12:00:00 AM EST NORM ([facility]) Chiqui Madera PA-C: [address], [place] [address], Ph. Attender: Chiqui [facility] Medical 09/06/2020 12:00:00 AM EST NORM ([facility]) Chiqui Madera PA-C: [address], [place] [address], Ph. Attender: Chiqui [facility] Medical 09/06/2020 12:00:00 AM EST NORM ([facility]) Chiqui Madera PA-C: [address], [place] [address], Ph. Attender: Chiqui [facility] Medical 09/06/2020 12:00:00 AM EST NORM ([facility]) Chiqui Madera PA-C: [address], [place] [address], Ph. Attender: Chiqui [facility] Medical 09/06/2020 12:00:00 AM EST NORM ([facility]) Chiqui Madera PA-C: [address], [place] [address], Ph. Attender: Chiqui [facility] Medical 09/06/2020 12:00:00 AM EST NORM ([facility]) Chiqui Madera PA-C: [address], [place] [address], Ph. Attender: Chiqui [facility] Medical 09/06/2020 12:00:00 AM EST NORM ([facility]) Chiqui Madera PA-C: [address], [place] [address], Ph. Attender: Chiqui [facility] Medical 09/06/2020 12:00:00 AM EST NORM ([facility]) Chiqui Madera PA-C: [address], [place] [address], Ph. Attender: Chiqui [facility] Medical 09/06/2020 12:00:00 AM EST NORM ([facility]) Chiqui Madera PA-C: [address], [place] [address], Ph. Attender: Chiqui [facility] Medical 09/06/2020 12:00:00 AM EST NORM ([facility]) Chiqui Madera PA-C: [address], [place] [address], Ph. Attender: Chiqui [facility] Medical 08/30/2020 12:00:00 AM EST NORM ([facility]) Chiqui Madera PA-C: [address], [place] [address], Ph. Attender: Chiqui [facility] Medical 08/30/2020 12:00:00 AM EST NORM ([facility]) Chiqui Madera PA-C: [address], [place] [address], Ph. Attender: Chiqui [facility] Medical 08/30/2020 12:00:00 AM EST NORM ([facility]) Chiqui Madera PA-C: [address], [place] [address], Ph. Attender: Chiqui [facility] Medical 08/30/2020 12:00:00 AM EST NORM ([facility]) Chiqui Madera PA-C: [address], [place] [address], Ph. Attender: Chiqui [facility] Medical 08/30/2020 12:00:00 AM EST NORM ([facility]) Chiqui Madera PA-C: [address], [place] [address], Ph. Attender: Chiqui [facility] Medical 08/30/2020 12:00:00 AM EST NORM ([facility]) Chiqui Madera PA-C: [address], [place] [address], Ph. Attender: Chiqui [facility] Medical 08/30/2020 12:00:00 AM EST NORM ([facility]) Chiqui Madera PA-C: [address], [place] [address], Ph. Attender: Chiqui [facility] Medical 08/30/2020 12:00:00 AM EST NORM ([facility]) Chiqui Madera PA-C: [address], [place] [address], Ph. Attender: Chiqui [facility] Medical 08/30/2020 12:00:00 AM EST NORM ([facility]) Chiqui Madera PA-C: [address], [place] [address], Ph. Attender: Chiqui [facility] Medical 08/30/2020 12:00:00 AM EST NORM ([facility]) Chiqui Madera PA-C: [address], [place] [address], Ph. Attender: Chiqui [facility] Medical 08/30/2020 12:00:00 AM EST NORM ([facility]) Chiqui Madera PA-C: [address], [place] [address], Ph. Attender: Chiqui [facility] Medical 08/30/2020 12:00:00 AM EST NORM ([facility]) Chiqui Madera PA-C: [address], [place] [address], Ph. Attender: Chiqui [facility] Medical 08/30/2020 12:00:00 AM EST NORM ([facility]) Chiqui Madera PA-C: [address], [place] [address], Ph. Attender: Chiqui [facility] Medical 08/30/2020 12:00:00 AM EST NORM ([facility]) Chiqui Madera PA-C: [address], [place] [address], Ph. Attender: Chiqui [facility] Medical 08/30/2020 12:00:00 AM EST NORM ([facility]) Chiqui Madera PA-C: [address], [place] [address], Ph. Attender: Chiqui [facility] Medical 08/30/2020 12:00:00 AM EST NORM ([facility]) Chiqui Madera PA-C: [address], [place] [address], Ph. Attender: Chiqui [facility] Medical 08/30/2020 12:00:00 AM EST NORM ([facility]) Chiqui Madera PA-C: [address], [place] [address], Ph. Attender: Chiqui [facility] Medical 08/30/2020 12:00:00 AM EST NORM ([facility]) Chiqui Madera PA-C: [address], [place] [address], Ph. Attender: Chiqui [facility] Medical 08/30/2020 12:00:00 AM EST NORM ([facility]) Chiqui Madera PA-C: [address], [place] [address], Ph. Attender: Chiqui [facility] Medical 08/30/2020 12:00:00 AM EST NORM ([facility]) Chiqui Madera PA-C: [address], [place] [address], Ph. Attender: Chiqui [facility] Medical 08/30/2020 12:00:00 AM EST NORM ([facility]) Chiqui Madera PA-C: [address], [place] [address], Ph. Attender: Chiqui [facility] Medical 08/30/2020 12:00:00 AM EST NORM ([facility]) Chiqui Madera PA-C: [address], [place] [address], Ph. Attender: Chiqui [facility] Medical 08/30/2020 12:00:00 AM EST NORM ([facility]) Chiqui Madera PA-C: [address], [place] [address], Ph. Attender: Chiqui [facility] Medical 08/30/2020 12:00:00 AM EST NORM ([facility]) Chiqui Madera PA-C: [address], [place] [address], Ph. Attender: Chiqui [facility] Medical 08/30/2020 12:00:00 AM EST NORM ([facility]) Chiqui Madera PA-C: [address], [place] [address], Ph. Attender: Chiqui [facility] Medical 08/30/2020 12:00:00 AM EST NORM ([facility]) Chiqui Madera PA-C: [address], [place] [address], Ph. Attender: Chiqui [facility] Medical 08/30/2020 12:00:00 AM EST NORM ([facility]) JOSE SpencerC: [address], [place] [address], Ph. Attender: Chiqui [facility] Medical 08/30/2020 12:00:00 AM EST NORM ([facility]) KOSTAS MendiolaC: [address], [place] [address], Ph. Attender: SHEREEN LAN [facility] Medical 08/29/2020 12:00:00 AM EST NORM ([facility]) KOSTAS MendiolaC: [address], [address], [place] [address], Ph. Attender: SHEREEN LAN [facility] Medical 08/29/2020 12:00:00 AM EST NORM ([facility]) KOSTAS MendiolaC: [address], [place] [address], Ph. Attender: SHEREEN LAN [facility] Medical 08/29/2020 12:00:00 AM EST NORM ([facility]) KOSTAS MendiolaC: [address], [place] [address], Ph. Attender: SHEREEN LAN [facility] Medical 08/29/2020 12:00:00 AM EST NORM ([facility]) KOSTAS MendiolaC: [address], [place] [address], Ph. Attender: SHEREEN LAN [facility] Medical 08/29/2020 12:00:00 AM EST NORM ([facility]) Shereen Lan RPA-C: [address], [address], [place] [address], Ph. Attender: SHEREEN LAN [facility] Medical 08/29/2020 12:00:00 AM EST NORM ([facility]) Shereen Lan RPA-C: [address], [place] [address], Ph. Attender: SHEREEN LAN [facility] Medical 08/29/2020 12:00:00 AM EST NORM ([facility]) KOSTAS MendiolaC: [address], [place] [address], Ph. Attender: SHEREEN LAN [facility] Medical 08/29/2020 12:00:00 AM EST NORM ([facility]) KOSTAS MendiolaC: [address], [place] [address], Ph. Attender: SHEREEN LAN [facility] Medical 08/29/2020 12:00:00 AM EST NORM ([facility]) Shereen Lan RPA-C: [address], [place] [address], Ph. Attender: SHEREEN LAN [facility] Medical 08/29/2020 12:00:00 AM EST NORM ([facility]) Shereen Lan RPA-C: [address], [place] [address], Ph. Attender: SHEREEN LAN [facility] Medical 08/29/2020 12:00:00 AM EST NORM ([facility]) KOSTAS MendiolaC: [address], [place] [address], Ph. Attender: SHEREEN LAN [facility] Medical 08/29/2020 12:00:00 AM EST NORM ([facility]) KOSTAS MendiolaC: [address], [place] [address], Ph. Attender: SHEREEN LAN [facility] Medical 08/29/2020 12:00:00 AM EST NORM ([facility]) KOSTAS MendiolaC: [address], [place] [address], Ph. Attender: SHEREEN LAN [facility] Medical 08/29/2020 12:00:00 AM EST NORM ([facility]) KOSTAS MendiolaC: [address], [place] [address], Ph. Attender: SHEREEN LAN [facility] Medical 08/29/2020 12:00:00 AM EST NORM ([facility]) Outpatient Attender: Teena sandoval 08/21/2020 02:15:00 PM EST MEDENT ([facility]) Medications Medication Brand Name Start Date Product Form Dose Route Admi nistrative Instructions Pharmacy Instructions Status Indications Reaction Description Data Source(s) cetirizine hydrochloride 10 MG Oral Tablet cetirizine 10 mg tablet cetirizine 10 mg tablet 08/29/2020 12:00:00 AM EST complete d cetirizine hydrochloride 10 MG Oral Tablet NORM ([facility]) cetirizine hydrochloride 10 MG Oral Tablet cetirizine 10 mg tablet cetirizine 10 mg tablet 08/29/2020 12:00:00 AM EST complete d cetirizine hydrochloride 10 MG Oral Tablet NORM ([facility]) 60 ACTUAT Albuterol 0.09 MG/ACTUAT Metered Dose Inhaler Albu terol Sulfate HFA 08/21/2020 12:00:00 AM EST RESPIRATORY active MEDENT ([facility], [facility]) Ibuprofen 800 MG Oral Tablet ibuprofen 8 00 mg tablet TAKE 1 TABLET BY MOUTH EVERY 6 TO 8 HOURS NEEDED ibuprofen 800 mg tablet TAKE 1 TABLET BY MOUTH EVERY 6 TO 8 HOURS NEEDED completed ibuprofen 800 MG Oral Tablet NORM ([facility]) Azithromycin 250 MG Oral Tablet azithrom ycin 250 mg tablet TAKE 2 TABLETS BY MOUTH ON DAY 1 AND THEN TAKE 1 TABLET BY MOUTH ONCE A DAY ON DAY 2 THROUGH DAY 5 azithromycin 250 mg tablet TAKE 2 TABLET S BY MOUTH ON DAY 1 AND THEN TAKE 1 TABLET BY MOUTH ONCE A DAY ON DAY 2 THROUGH DAY 5 completed azithromycin 250 MG Oral Tablet NORM ([facility]) Levothyroxine Sodium 0.025 MG Oral Table t [Euthyrox] Euthyrox 25 mcg tablet TAKE 1 TABLET BY MOUTH ONCE DAILY Euthyrox 25 mcg tablet TAKE 1 TABLET BY MOUTH ONCE DAILY completed levothy roxine sodium 0.025 MG Oral Tablet [Euthyrox] NORM ([facility]) POLYETHYLENE GLYCOL 3350 142 MG/ML Oral Solution [Miralax] Miralax 17 gram/dose oral powder Take by oral route. Miralax 17 gram/dose oral powder Take by oral route. completed polyeth ylene glycol 3350 72062 MG Powder for Oral Solution [Miralax] NORM ([facility]) Clindamycin 300 MG Oral Capsule clindamy nestor HCl 300 mg capsule TAKE 1 CAPSULE BY MOUTH THREE TIMES DAILY FOR 10 DAYS clindamycin HCl 300 mg capsule TAKE 1 CAPSULE BY MOUTH THREE TIMES DAILY FOR 10 DAYS completed clindamycin 300 MG Oral Capsule NORM ([facility]) Ibuprofen 800 MG Oral Tablet ibuprofen 8 00 mg tablet TAKE 1 TABLET BY MOUTH EVERY 6 TO 8 HOURS NEEDED ibuprofen 800 mg tablet TAKE 1 TABLET BY MOUTH EVERY 6 TO 8 HOURS NEEDED completed ibuprofen 800 MG Oral Tablet NORM ([facility]) Azithromycin 250 MG Oral Tablet azithrom ycin 250 mg tablet TAKE 2 TABLETS BY MOUTH ON DAY 1 AND THEN TAKE 1 TABLET BY MOUTH ONCE A DAY ON DAY 2 THROUGH DAY 5 azithromycin 250 mg tablet TAKE 2 TABLET S BY MOUTH ON DAY 1 AND THEN TAKE 1 TABLET BY MOUTH ONCE A DAY ON DAY 2 THROUGH DAY 5 completed azithromycin 250 MG Oral Tablet NORM ([facility]) Clindamycin 300 MG Oral Capsule clindamycin HCl 300 mg capsule clindamycin HCl 300 mg capsule completed clindam ycin 300 MG Oral Capsule NORM ([facility]) Clindamycin 300 MG Oral Capsule clindamycin HCl 300 mg capsule clindamycin HCl 300 mg capsule completed clindam ycin 300 MG Oral Capsule NORM ([facility]) Azithromycin 250 MG Oral Tablet azithrom ycin 250 mg tablet TAKE 2 TABLETS BY MOUTH ON DAY 1 AND THEN TAKE 1 TABLET BY MOUTH ONCE A DAY ON DAY 2 THROUGH DAY 5 azithromycin 250 mg tablet TAKE 2 TABLET S BY MOUTH ON DAY 1 AND THEN TAKE 1 TABLET BY MOUTH ONCE A DAY ON DAY 2 THROUGH DAY 5 completed azithromycin 250 MG Oral Tablet NORM ([facility]) Levothyroxine Sodium 0.05 MG Oral Tablet [Euthyrox] Euthyrox 50 mcg tablet TAKE 1 TABLET BY MOUTH ONCE DAILY Euthyrox 50 mcg tablet TAKE 1 TABLET BY MOUTH ONCE DAILY completed levothy roxine sodium 0.05 MG Oral Tablet [Euthyrox] NORM ([facility]) Levothyroxine Sodium 0.025 MG Oral Table t [Euthyrox] Euthyrox 25 mcg tablet TAKE 1 TABLET BY MOUTH ONCE DAILY Euthyrox 25 mcg tablet TAKE 1 TABLET BY MOUTH ONCE DAILY completed levothy roxine sodium 0.025 MG Oral Tablet [Euthyrox] NORM ([facility]) Ibuprofen 800 MG Oral Tablet ibuprofen 8 00 mg tablet TAKE 1 TABLET BY MOUTH EVERY 6 TO 8 HOURS NEEDED ibuprofen 800 mg tablet TAKE 1 TABLET BY MOUTH EVERY 6 TO 8 HOURS NEEDED completed ibuprofen 800 MG Oral Tablet NORM ([facility]) Azithromycin 250 MG Oral Tablet azithrom ycin 250 mg tablet TAKE 2 TABLETS BY MOUTH ON DAY 1 AND THEN TAKE 1 TABLET BY MOUTH ONCE A DAY ON DAY 2 THROUGH DAY 5 azithromycin 250 mg tablet TAKE 2 TABLET S BY MOUTH ON DAY 1 AND THEN TAKE 1 TABLET BY MOUTH ONCE A DAY ON DAY 2 THROUGH DAY 5 completed azithromycin 250 MG Oral Tablet NORM ([facility]) Clindamycin 300 MG Oral Capsule clindamycin HCl 300 mg capsule clindamycin HCl 300 mg capsule completed clindam ycin 300 MG Oral Capsule NORM ([facility]) Clindamycin 300 MG Oral Capsule clindamycin HCl 300 mg capsule clindamycin HCl 300 mg capsule completed clindam ycin 300 MG Oral Capsule NORM ([facility]) Levothyroxine Sodium 0.05 MG Oral Tablet [Euthyrox] Euthyrox 50 mcg tablet TAKE 1 TABLET BY MOUTH ONCE DAILY Euthyrox 50 mcg tablet TAKE 1 TABLET BY MOUTH ONCE DAILY completed levothy roxine sodium 0.05 MG Oral Tablet [Euthyrox] NORM ([facility]) Clindamycin 300 MG Oral Capsule clindamycin HCl 300 mg capsule clindamycin HCl 300 mg capsule completed clindam ycin 300 MG Oral Capsule NORM ([facility]) Azithromycin 250 MG Oral Tablet azithrom ycin 250 mg tablet TAKE 2 TABLETS BY MOUTH ON DAY 1 AND THEN TAKE 1 TABLET BY MOUTH ONCE A DAY ON DAY 2 THROUGH DAY 5 azithromycin 250 mg tablet TAKE 2 TABLET S BY MOUTH ON DAY 1 AND THEN TAKE 1 TABLET BY MOUTH ONCE A DAY ON DAY 2 THROUGH DAY 5 completed azithromycin 250 MG Oral Tablet NORM ([facility]) Ibuprofen 800 MG Oral Tablet ibuprofen 8 00 mg tablet TAKE 1 TABLET BY MOUTH EVERY 6 TO 8 HOURS NEEDED ibuprofen 800 mg tablet TAKE 1 TABLET BY MOUTH EVERY 6 TO 8 HOURS NEEDED completed ibuprofen 800 MG Oral Tablet NORM ([facility]) Ibuprofen 800 MG Oral Tablet ibuprofen 8 00 mg tablet TAKE 1 TABLET BY MOUTH EVERY 6 TO 8 HOURS NEEDED ibuprofen 800 mg tablet TAKE 1 TABLET BY MOUTH EVERY 6 TO 8 HOURS NEEDED completed ibuprofen 800 MG Oral Tablet NORM ([facility]) Ibuprofen 800 MG Oral Tablet ibuprofen 8 00 mg tablet TAKE 1 TABLET BY MOUTH EVERY 6 TO 8 HOURS NEEDED ibuprofen 800 mg tablet TAKE 1 TABLET BY MOUTH EVERY 6 TO 8 HOURS NEEDED completed ibuprofen 800 MG Oral Tablet NORM ([facility]) Azithromycin 250 MG Oral Tablet azithrom ycin 250 mg tablet TAKE 2 TABLETS BY MOUTH ON DAY 1 AND THEN TAKE 1 TABLET BY MOUTH ONCE A DAY ON DAY 2 THROUGH DAY 5 azithromycin 250 mg tablet TAKE 2 TABLET S BY MOUTH ON DAY 1 AND THEN TAKE 1 TABLET BY MOUTH ONCE A DAY ON DAY 2 THROUGH DAY 5 completed azithromycin 250 MG Oral Tablet NORM ([facility]) Clindamycin 300 MG Oral Capsule clindamy nestor HCl 300 mg capsule TAKE 1 CAPSULE BY MOUTH THREE TIMES DAILY FOR 10 DAYS clindamycin HCl 300 mg capsule TAKE 1 CAPSULE BY MOUTH THREE TIMES DAILY FOR 10 DAYS completed clindamycin 300 MG Oral Capsule NORM ([facility]) Clindamycin 300 MG Oral Capsule clindamy nestor HCl 300 mg capsule TAKE 1 CAPSULE BY MOUTH THREE TIMES DAILY FOR 10 DAYS clindamycin HCl 300 mg capsule TAKE 1 CAPSULE BY MOUTH THREE TIMES DAILY FOR 10 DAYS completed clindamycin 300 MG Oral Capsule NORM ([facility]) Clindamycin 300 MG Oral Capsule clindamycin HCl 300 mg capsule clindamycin HCl 300 mg capsule completed clindam ycin 300 MG Oral Capsule NORM ([facility]) Levothyroxine Sodium 0.025 MG Oral Table t [Euthyrox] Euthyrox 25 mcg tablet TAKE 1 TABLET BY MOUTH ONCE DAILY Euthyrox 25 mcg tablet TAKE 1 TABLET BY MOUTH ONCE DAILY completed levothy roxine sodium 0.025 MG Oral Tablet [Euthyrox] NORM ([facility]) Azithromycin 250 MG Oral Tablet azithrom ycin 250 mg tablet TAKE 2 TABLETS BY MOUTH ON DAY 1 AND THEN TAKE 1 TABLET BY MOUTH ONCE A DAY ON DAY 2 THROUGH DAY 5 azithromycin 250 mg tablet TAKE 2 TABLET S BY MOUTH ON DAY 1 AND THEN TAKE 1 TABLET BY MOUTH ONCE A DAY ON DAY 2 THROUGH DAY 5 completed azithromycin 250 MG Oral Tablet NORM ([facility]) Levothyroxine Sodium 0.025 MG Oral Table t [Euthyrox] Euthyrox 25 mcg tablet TAKE 1 TABLET BY MOUTH ONCE DAILY Euthyrox 25 mcg tablet TAKE 1 TABLET BY MOUTH ONCE DAILY completed levothy roxine sodium 0.025 MG Oral Tablet [Euthyrox] NORM ([facility]) Clindamycin 300 MG Oral Capsule clindamy nestor HCl 300 mg capsule TAKE 1 CAPSULE BY MOUTH THREE TIMES DAILY FOR 10 DAYS clindamycin HCl 300 mg capsule TAKE 1 CAPSULE BY MOUTH THREE TIMES DAILY FOR 10 DAYS completed clindamycin 300 MG Oral Capsule NORM ([facility]) POLYETHYLENE GLYCOL 3350 142 MG/ML Oral Solution [Miralax] Miralax 17 gram/dose oral powder Take by oral route. Miralax 17 gram/dose oral powder Take by oral route. completed polyeth ylene glycol 3350 79196 MG Powder for Oral Solution [Miralax] NORM ([facility]) Azithromycin 250 MG Oral Tablet azithrom ycin 250 mg tablet TAKE 2 TABLETS BY MOUTH ON DAY 1 AND THEN TAKE 1 TABLET BY MOUTH ONCE A DAY ON DAY 2 THROUGH DAY 5 azithromycin 250 mg tablet TAKE 2 TABLET S BY MOUTH ON DAY 1 AND THEN TAKE 1 TABLET BY MOUTH ONCE A DAY ON DAY 2 THROUGH DAY 5 completed azithromycin 250 MG Oral Tablet NORM ([facility]) cefdinir 300 MG Oral Capsule cefdinir 30 0 mg capsule TAKE 1 CAPSULE BY MOUTH EVERY 12 HOURS FOR 5 DAYS cefdinir 300 mg capsule TAKE 1 CAPSULE B Y MOUTH EVERY 12 HOURS FOR 5 DAYS completed ce fdinir 300 MG Oral Capsule NORM ([facility]) Azithromycin 250 MG Oral Tablet azithrom ycin 250 mg tablet TAKE 2 TABLETS BY MOUTH ON DAY 1 AND THEN TAKE 1 TABLET BY MOUTH ONCE A DAY ON DAY 2 THROUGH DAY 5 azithromycin 250 mg tablet TAKE 2 TABLET S BY MOUTH ON DAY 1 AND THEN TAKE 1 TABLET BY MOUTH ONCE A DAY ON DAY 2 THROUGH DAY 5 completed azithromycin 250 MG Oral Tablet NORM ([facility]) Clindamycin 300 MG Oral Capsule clindamycin HCl 300 mg capsule clindamycin HCl 300 mg capsule completed clindam ycin 300 MG Oral Capsule NORM ([facility]) Levothyroxine Sodium 0.025 MG Oral Table t [Euthyrox] Euthyrox 25 mcg tablet TAKE 1 TABLET BY MOUTH ONCE DAILY Euthyrox 25 mcg tablet TAKE 1 TABLET BY MOUTH ONCE DAILY completed levothy roxine sodium 0.025 MG Oral Tablet [Euthyrox] NORM ([facility]) Azithromycin 250 MG Oral Tablet azithrom ycin 250 mg tablet TAKE 2 TABLETS BY MOUTH ON DAY 1 AND THEN TAKE 1 TABLET BY MOUTH ONCE A DAY ON DAY 2 THROUGH DAY 5 azithromycin 250 mg tablet TAKE 2 TABLET S BY MOUTH ON DAY 1 AND THEN TAKE 1 TABLET BY MOUTH ONCE A DAY ON DAY 2 THROUGH DAY 5 completed azithromycin 250 MG Oral Tablet NORM ([facility]) Ibuprofen 800 MG Oral Tablet ibuprofen 8 00 mg tablet TAKE 1 TABLET BY MOUTH EVERY 6 TO 8 HOURS NEEDED ibuprofen 800 mg tablet TAKE 1 TABLET BY MOUTH EVERY 6 TO 8 HOURS NEEDED completed ibuprofen 800 MG Oral Tablet NORM ([facility]) Ibuprofen 800 MG Oral Tablet ibuprofen 8 00 mg tablet TAKE 1 TABLET BY MOUTH EVERY 6 TO 8 HOURS NEEDED ibuprofen 800 mg tablet TAKE 1 TABLET BY MOUTH EVERY 6 TO 8 HOURS NEEDED completed ibuprofen 800 MG Oral Tablet NORM ([facility]) Ibuprofen 800 MG Oral Tablet ibuprofen 8 00 mg tablet TAKE 1 TABLET BY MOUTH EVERY 6 TO 8 HOURS NEEDED ibuprofen 800 mg tablet TAKE 1 TABLET BY MOUTH EVERY 6 TO 8 HOURS NEEDED completed ibuprofen 800 MG Oral Tablet NORM ([facility]) Levothyroxine Sodium 0.05 MG Oral Tablet [Euthyrox] Euthyrox 50 mcg tablet TAKE 1 TABLET BY MOUTH ONCE DAILY Euthyrox 50 mcg tablet TAKE 1 TABLET BY MOUTH ONCE DAILY completed levothy roxine sodium 0.05 MG Oral Tablet [Euthyrox] NORM ([facility]) Levothyroxine Sodium 0.025 MG Oral Table t [Euthyrox] Euthyrox 25 mcg tablet TAKE 1 TABLET BY MOUTH ONCE DAILY Euthyrox 25 mcg tablet TAKE 1 TABLET BY MOUTH ONCE DAILY completed levothy roxine sodium 0.025 MG Oral Tablet [Euthyrox] NORM ([facility]) albuterol sulfate HFA 90 mcg/actuation aerosol inhaler [id number] completed [id number] 200 ACTUAT albuterol 0.09 MG/ACTUAT Metered Dose Inhaler NORM ([facility]) Azithromycin 250 MG Oral Tablet azithrom ycin 250 mg tablet TAKE 2 TABLETS BY MOUTH ON DAY 1 AND THEN TAKE 1 TABLET BY MOUTH ONCE A DAY ON DAY 2 THROUGH DAY 5 azithromycin 250 mg tablet TAKE 2 TABLET S BY MOUTH ON DAY 1 AND THEN TAKE 1 TABLET BY MOUTH ONCE A DAY ON DAY 2 THROUGH DAY 5 completed azithromycin 250 MG Oral Tablet NORM ([facility]) d3 50 mcg (1999 ut) caps completed d3 50 mcg (1999 ut) caps NORM ([facility]) d3 50 mcg (1999 ut) caps completed d3 50 mcg (1999 ut) caps NORM ([facility]) Ibuprofen 800 MG Oral Tablet ibuprofen 8 00 mg tablet TAKE 1 TABLET BY MOUTH EVERY 6 TO 8 HOURS NEEDED ibuprofen 800 mg tablet TAKE 1 TABLET BY MOUTH EVERY 6 TO 8 HOURS NEEDED completed ibuprofen 800 MG Oral Tablet NORM ([facility]) Ibuprofen 800 MG Oral Tablet ibuprofen 8 00 mg tablet TAKE 1 TABLET BY MOUTH EVERY 6 TO 8 HOURS NEEDED ibuprofen 800 mg tablet TAKE 1 TABLET BY MOUTH EVERY 6 TO 8 HOURS NEEDED completed ibuprofen 800 MG Oral Tablet NORM ([facility]) Clindamycin 300 MG Oral Capsule clindamycin HCl 300 mg capsule clindamycin HCl 300 mg capsule completed clindam ycin 300 MG Oral Capsule NORM ([facility]) Levothyroxine Sodium 0.05 MG Oral Tablet [Euthyrox] Euthyrox 50 mcg tablet TAKE 1 TABLET BY MOUTH ONCE DAILY Euthyrox 50 mcg tablet TAKE 1 TABLET BY MOUTH ONCE DAILY completed levothy roxine sodium 0.05 MG Oral Tablet [Euthyrox] NORM ([facility]) Ibuprofen 800 MG Oral Tablet ibuprofen 8 00 mg tablet TAKE 1 TABLET BY MOUTH EVERY 6 TO 8 HOURS NEEDED ibuprofen 800 mg tablet TAKE 1 TABLET BY MOUTH EVERY 6 TO 8 HOURS NEEDED completed ibuprofen 800 MG Oral Tablet NORM ([facility]) Levothyroxine Sodium 0.025 MG Oral Table t [Euthyrox] Euthyrox 25 mcg tablet TAKE 1 TABLET BY MOUTH ONCE DAILY Euthyrox 25 mcg tablet TAKE 1 TABLET BY MOUTH ONCE DAILY completed levothy roxine sodium 0.025 MG Oral Tablet [Euthyrox] NORM ([facility]) Azithromycin 250 MG Oral Tablet azithrom ycin 250 mg tablet TAKE 2 TABLETS BY MOUTH ON DAY 1 AND THEN TAKE 1 TABLET BY MOUTH ONCE A DAY ON DAY 2 THROUGH DAY 5 azithromycin 250 mg tablet TAKE 2 TABLET S BY MOUTH ON DAY 1 AND THEN TAKE 1 TABLET BY MOUTH ONCE A DAY ON DAY 2 THROUGH DAY 5 completed azithromycin 250 MG Oral Tablet NORM ([facility]) Clindamycin 300 MG Oral Capsule clindamycin HCl 300 mg capsule clindamycin HCl 300 mg capsule completed clindam ycin 300 MG Oral Capsule NORM ([facility]) POLYETHYLENE GLYCOL 3350 142 MG/ML Oral Solution [Miralax] Miralax 17 gram/dose oral powder Take by oral route. Miralax 17 gram/dose oral powder Take by oral route. completed polyeth ylene glycol 3350 95700 MG Powder for Oral Solution [Miralax] NORM ([facility]) Ibuprofen 800 MG Oral Tablet ibuprofen 8 00 mg tablet TAKE 1 TABLET BY MOUTH EVERY 6 TO 8 HOURS NEEDED ibuprofen 800 mg tablet TAKE 1 TABLET BY MOUTH EVERY 6 TO 8 HOURS NEEDED completed ibuprofen 800 MG Oral Tablet NORM ([facility]) POLYETHYLENE GLYCOL 3350 142 MG/ML Oral Solution [Miralax] Miralax 17 gram/dose oral powder Take by oral route. Miralax 17 gram/dose oral powder Take by oral route. completed polyeth ylene glycol 3350 95533 MG Powder for Oral Solution [Miralax] NORM ([facility]) Ibuprofen 800 MG Oral Tablet ibuprofen 8 00 mg tablet TAKE 1 TABLET BY MOUTH EVERY 6 TO 8 HOURS NEEDED ibuprofen 800 mg tablet TAKE 1 TABLET BY MOUTH EVERY 6 TO 8 HOURS NEEDED completed ibuprofen 800 MG Oral Tablet NORM ([facility]) Ibuprofen 800 MG Oral Tablet ibuprofen 8 00 mg tablet TAKE 1 TABLET BY MOUTH EVERY 6 TO 8 HOURS NEEDED ibuprofen 800 mg tablet TAKE 1 TABLET BY MOUTH EVERY 6 TO 8 HOURS NEEDED completed ibuprofen 800 MG Oral Tablet NORM ([facility]) Clindamycin 300 MG Oral Capsule clindamycin HCl 300 mg capsule clindamycin HCl 300 mg capsule completed clindam ycin 300 MG Oral Capsule NORM ([facility]) albuterol sulfate HFA 90 mcg/actuation aerosol inhaler [id number] completed [id number] 200 ACTUAT albuterol 0.09 MG/ACTUAT Metered Dose Inhaler NORM ([facility]) fluticasone 113 mcg-salmeterol 14 mcg/actuation breath activated [facility] [id number] completed 60 ACTUAT flut icasone propionate 0.113 MG/ACTUAT / salmeterol 0.014 MG/ACTUAT Dry Powder Inhaler NORM ([facility]) Insurance Providers Payer name Policy type / Coverage type Policy ID Covered constitution party ID Covered constitution party's relationship to rodgers Policy Rodgers Plan Information [employer] [id number] Self [id number] [place] [employer] [id number] Self [id number] [employer] [id number] Employee [id number] [employer] emp [id number] Employee [id number] [facility] P [id number] S [id number] [facility] Plan S UNAVAILABLE S UNAVAILABLE Medicaid O UNAVAILABLE S UNAVAILA BLE Sliding Fee Scale P [id number] S [id number] SELF PAY UNAVAILABLE SP UNAVAILA BLE MEDICAID [id number] SP [id number] [facility] Health Maintenance Organization ([facility] [id number] Self [id number] [facility] Health Maintenance Organization (O) [id number] Self [id number] [facility] Health Maintenance Organization (O) [id number] Self [id number] [facility] Health Maintenance Organization (O) [id number] Self [id number] [facility] Health Maintenance Organization (O) [id number] Self [id number] [facility] Health Maintenance Organization (O) [id number] Self [facility] Health Maintenance Organization (HMO) [id number] Self [employer] AMERICHOICE XIX -[id number] 18 [id number] [facility] COMM[facility] [id number] SP [id number] [facility] O [id number] S [id number] [place] [id number] SP [id number] MEDICAID [id number] SP [id number] Medicaid S [id number] S [id number] Problems, Conditions, and Diagnoses Code Display Name Description Problem Type Effective Dates Data Source(s) [id number] COVID-19 Covid-19 Problem 07/22/2021 12:00:00 AM SHAY ZHENG ([facility]) [id number] Vitamin D deficiency Vitamin D Deficiency Problem 07/17/2021 09:50:12 AM KELLY ZHENG ([facility]) [id number] Asthma Asthma Problem 01/15/2021 12:00:00 AM ED T NORM ([facility]) [id number] Asthma Asthma Problem 01/15/2021 12:00:00 AM ED T NORM ([facility]) [id number] Asthma Asthma Problem 01/15/2021 12:00:00 AM ED T NORM ([facility]) [id number] Asthma Asthma Problem 01/15/2021 12:00:00 AM ED T NORM ([facility]) 387861920 Asthma Asthma Problem 01/15/2021 12:00:00 AM ED T NORM ([facility]) 884953205 Asthma Asthma Problem 01/15/2021 12:00:00 AM ED T NORM ([facility]) 049039889 Pharyngeal finding Pharyngeal Finding Problem 03/2020 12:00:00 AM EDT - 01/15/2021 12:00:00 AM EDT NORM ([facility]) 917135239 Pharyngeal finding Pharyngeal Finding Problem 03/2020 12:00:00 AM EDT - 01/15/2021 12:00:00 AM EDT NORM ([facility]) 145313078 Pharyngeal finding Pharyngeal Finding Problem 03/2020 12:00:00 AM EDT - 01/15/2021 12:00:00 AM EDT NORM ([facility]) 016765664 Pharyngeal finding Pharyngeal Finding Problem 03/2020 12:00:00 AM EDT - 01/15/2021 12:00:00 AM EDT NORM ([facility]) 571100277 Pharyngeal finding Pharyngeal Finding Problem 03/2020 12:00:00 AM EDT - 01/15/2021 12:00:00 AM EDT NORM ([facility]) 394928152 Pharyngeal finding Pharyngeal Finding Problem 03/2020 12:00:00 AM EDT - 01/15/2021 12:00:00 AM EDT NORM ([facility]) [id number] Clinical finding Clinical Finding Problem 12:00:00 AM EST - 01/15/2021 12:00:00 AM EDT NORM ([facility]) 590224648 Adult health examination Adult Health Examination Prob ken 10/24/2019 12:00:00 AM EST - 04/02/2021 12:00:00 AM EDT [place] ([facility]) [id number] Influenza vaccine needed Influenza Vaccine Needed Pro blem 10/24/2019 12:00:00 AM EST - 04/02/2021 12:00:00 AM EDT [place] ([facility]) 617513142 Left upper quadrant pain Left Upper Quadrant Pain Prob ken 10/24/2019 12:00:00 AM EST - 01/15/2021 12:00:00 AM EDT [place] ([facility]) [id number] Exacerbation of intermittent asthma Exac erbation of Intermittent Asthma Problem 10/24/2019 12:00:00 AM EST - 01/15/2021 12:00:00 AM EDT [place] ([facility]) 07660908 Iron deficiency Iron Deficiency Problem 0 12:00:00 AM EST - 04/02/2021 12:00:00 AM EDT [place] ([facility]) [id number] Adult health examination Adult Health Examination Prob ken 10/24/2019 12:00:00 AM EST - 04/02/2021 12:00:00 AM EDT [place] ([facility]) [id number] Influenza vaccine needed Influenza Vaccine Needed Pro blem 10/24/2019 12:00:00 AM EST - 04/02/2021 12:00:00 AM EDT [place] ([facility]) 706974318 Left upper quadrant pain Left Upper Quadrant Pain Prob ken 10/24/2019 12:00:00 AM EST - 01/15/2021 12:00:00 AM EDT [place] ([facility]) [id number] Exacerbation of intermittent asthma Exac erbation of Intermittent Asthma Problem 10/24/2019 12:00:00 AM EST - 01/15/2021 12:00:00 AM EDT [place] ([facility]) 16186222 Iron deficiency Iron Deficiency Problem 0 12:00:00 AM EST - 04/02/2021 12:00:00 AM EDT [place] ([facility]) [id number] Clinical finding Clinical Finding Problem 020 12:00:00 AM EST - 01/15/2021 12:00:00 AM EDT NORM ([facility]) 688344489 Adult health examination Adult Health Examination Prob ken 10/24/2019 12:00:00 AM EST - 04/02/2021 12:00:00 AM EDT [place] ([facility]) [id number] Influenza vaccine needed Influenza Vaccine Needed Pro blem 10/24/2019 12:00:00 AM EST - 04/02/2021 12:00:00 AM EDT [place] ([facility]) 147332558 Left upper quadrant pain Left Upper Quadrant Pain Prob ken 10/24/2019 12:00:00 AM EST - 01/15/2021 12:00:00 AM EDT [place] ([facility]) 187492986 Exacerbation of intermittent asthma Exac erbation of Intermittent Asthma Problem 10/24/2019 12:00:00 AM EST - 01/15/2021 12:00:00 AM EDT [place] ([facility]) 20767503 Iron deficiency Iron Deficiency Problem 12:00:00 AM EST - 04/02/2021 12:00:00 AM EDT [place] ([facility]) [id number] Clinical finding Clinical Finding Problem 020 12:00:00 AM EST - 01/15/2021 12:00:00 AM EDT NORM ([facility]) 382531903 Adult health examination Adult Health Examination Prob ken 10/24/2019 12:00:00 AM EST - 04/02/2021 12:00:00 AM EDT [place] ([facility]) [id number] Influenza vaccine needed Influenza Vaccine Needed Pro blem 10/24/2019 12:00:00 AM EST - 04/02/2021 12:00:00 AM EDT [place] ([facility]) 863983391 Left upper quadrant pain Left Upper Quadrant Pain Prob ken 10/24/2019 12:00:00 AM EST - 01/15/2021 12:00:00 AM EDT [place] ([facility]) 840830447 Exacerbation of intermittent asthma Exac erbation of Intermittent Asthma Problem 10/24/2019 12:00:00 AM EST - 01/15/2021 12:00:00 AM EDT [place] ([facility]) 32039390 Iron deficiency Iron Deficiency Problem 12:00:00 AM EST - 04/02/2021 12:00:00 AM EDT [place] ([facility]) [id number] Clinical finding Clinical Finding Problem 020 12:00:00 AM EST - 01/15/2021 12:00:00 AM EDT [place] ([facility]) 691306805 Left upper quadrant pain Left Upper Quadrant Pain Prob ken 10/24/2019 12:00:00 AM EST - 01/15/2021 12:00:00 AM EDT [place] ([facility]) [id number] Exacerbation of intermittent asthma Exac erbation of Intermittent Asthma Problem 10/24/2019 12:00:00 AM EST - 01/15/2021 12:00:00 AM EDT [place] ([facility]) [id number] Clinical finding Clinical Finding Problem 020 12:00:00 AM EST - 01/15/2021 12:00:00 AM EDT [place] ([facility]) 088731142 Left upper quadrant pain Left Upper Quadrant Pain Prob ken 10/24/2019 12:00:00 AM EST - 01/15/2021 12:00:00 AM EDT [place] ([facility]) 239919528 Exacerbation of intermittent asthma Exac erbation of Intermittent Asthma Problem 10/24/2019 12:00:00 AM EST - 01/15/2021 12:00:00 AM EDT [place] ([facility]) 288426396 Clinical finding Clinical Finding Problem 020 12:00:00 AM EST - 01/15/2021 12:00:00 AM EDT [place] ([facility]) Surgeries/Procedures Procedure Description Date Indications Data Source(s) OFFICE OUTPATIENT VISIT 15 MINUTES 07/20/2021 12:00:00 AM EST [facility]ENT ([facility], [facility]) Remove Impact Cerumen Irrigati 03/05/2021 12:00:00 AM EDT [facility] ([facility], [facility]) OFFICE OUTPATIENT VISIT 15 MINUTES 03/05/2021 12:00:00 AM ZEV MARTINEZ ([facility], [facility]) XR, kidney + ureter + bladder 10/26/2020 12:00:[address] [facility] ([facility]) XR, kidney + ureter + bladder 10/26/2020 12:00:[address] NORM ([facility]) XR, kidney + ureter + bladder 10/26/2020 12:00:[address] NORM ([facility]) XR, kidney + ureter + bladder 10/26/2020 12:00:[address] NORM ([facility]) XR, kidney + ureter + bladder 10/26/2020 12:00:[address] NORM ([facility]) XR, kidney + ureter + bladder 10/26/2020 12:00:[address] NORM ([facility]) XR, kidney + ureter + bladder 10/26/2020 12:00:[address] NORM ([facility]) XR, kidney + ureter + bladder 10/26/2020 12:00:[address] NORM ([facility]) XR, kidney + ureter + bladder 10/26/2020 12:00:[address] NORM ([facility]) exercise stress test 10/10/2020 12:00:00 AM EST NORM ([facility]) exercise stress test 10/10/2020 12:00:00 AM EST NORM ([facility]) exercise stress test 10/10/2020 12:00:00 AM EST NORM ([facility]) exercise stress test 10/10/2020 12:00:00 AM EST NORM ([facility]) exercise stress test 10/10/2020 12:00:00 AM EST NORM ([facility]) exercise stress test 10/10/2020 12:00:00 AM EST NORM ([facility]) exercise stress test 10/10/2020 12:00:00 AM EST NORM ([facility]) exercise stress test 10/10/2020 12:00:00 AM EST NORM ([facility]) exercise stress test 10/10/2020 12:00:00 AM EST [place] ([facility]) exercise stress test 10/10/2020 12:00:00 AM EST [place] ([facility]) exercise stress test 10/10/2020 12:00:00 AM EST [place] ([facility]) Results ID Date Data Source [id number] 07/20/2021 12:00:00 AM EST [facility] Name Value Range Interpretation Code Description Data Jania rce(s) Supporting Document(s) SARS-CoV2 Rapid Antigen Positive [facility] This lab was reported by [facility]. ID Date Data Source [id number] 07/20/2021 12:00:00 AM EST [facility] Name Value Range Interpretation Code Description Data Jania rce(s) Supporting Document(s) SARS-CoV2 Rapid Antigen Positive [facility] This lab was reported by [facility]. ID Date Data Source [id number] 07/02/2021 10:29:00 AM EST [facility] Name Value Range Interpretation Code Description Data Jania rce(s) Supporting Document(s) SARS coronavirus 2 RNA [Presence] in Res piratory specimen by JAMMIE with probe detection NEGATIVE [facility] This lab was ordered by [facility] [facility] a nd reported by [facility]. ID Date Data Source [id number] 06/03/2021 09:35:00 AM EDT [facility]) Name Value Range Interpretation Code Description Data Jania rce(s) Supporting Document(s) Thyrotropin [Units/volume] in Serum or Plasma 2.95 mIU/L 0.40-4.50 Tsh [facility]) ID Date Data Source [id number] 04/02/2021 10:30:00 AM EDT [facility]) Name Value Range Interpretation Code Description Data Jania rce(s) Supporting Document(s) Bacteria identified in Throat by Culture see note Culture, Throat [facility]) ID Date Data Source [id number] 04/02/2021 10:30:00 AM EDT [facility]) Name Value Range Interpretation Code Description Data Jania rce(s) Supporting Document(s) Bacteria identified in Throat by Culture see note Culture, Throat [facility]) ID Date Data Source [id number] 04/02/2021 10:30:00 AM EDT [facility]) Name Value Range Interpretation Code Description Data Jania rce(s) Supporting Document(s) Bacteria identified in Throat by Culture see note Culture, Throat [facility]) ID Date Data Source [id number] 04/02/2021 10:07:00 AM EDT [facility]) Name Value Range Interpretation Code Description Data Jania rce(s) Supporting Document(s) sars-cov-2 negative negative Sars-cov-2 [facility]) ID Date Data Source [id number] 04/02/2021 10:07:00 AM EDT [facility]) Name Value Range Interpretation Code Description Data Jania rce(s) Supporting Document(s) sars-cov-2 negative negative Sars-cov-2 [facility]) ID Date Data Source [id number] 04/02/2021 10:07:00 AM EDT [facility]) Name Value Range Interpretation Code Description Data Jania rce(s) Supporting Document(s) sars-cov-2 negative negative Sars-cov-2 [facility]) ID Date Data Source [id number] 04/02/2021 10:07:00 AM EDT [facility]) Name Value Range Interpretation Code Description Data Jania rce(s) Supporting Document(s) sars-cov-2 negative negative Sars-cov-2 [facility]) ID Date Data Source [id number] 04/02/2021 09:00:00 AM EDT [facility] Name Value Range Interpretation Code Description Data Jania rce(s) Supporting Document(s) SARS coronavirus 2 RdRp gene [Presence] in Respiratory specimen by JAMMIE with probe detection Not detected [facility] This lab was ordered by [facility] and reported by [facility]. ID Date Data Source [id number] 03/11/2021 10:12:00 AM EDT [place] ([facility]) Name Value Range Interpretation Code Description Data Jania rce(s) Supporting Document(s) Calcidiol [Mass/volume] in Serum or Plasma 12 NG/mL 30-100 Below low normal Vitamin D,25-Oh,total,ia [facility]) ID Date Data Source [id number] 03/11/2021 10:12:00 AM EDT [place] ([facility]) Name Value Range Interpretation Code Description Data Jania rce(s) Supporting Document(s) Thyroxine (T4) free [Mass/volume] in Serum or Plasma 0.9 NG/dL 0 .8-1.8 T4, Free [place] ([facility]) Thyrotropin [Units/volume] in Serum or Plasma 4.52 mIU/L 0. 40-4.50 Above high normal Tsh [place] ([facility]) ID Date Data Source [id number] 03/11/2021 10:12:00 AM EDT [place] ([facility]) Name Value Range Interpretation Code Description Data Jania rce(s) Supporting Document(s) Calcidiol [Mass/volume] in Serum or Plasma 12 NG/mL 30-100 Below low normal Vitamin D,25-Oh,total,ia [place] ([facility]) ID Date Data Source [id number] 03/11/2021 10:12:00 AM EDT [facility]) Name Value Range Interpretation Code Description Data Jania rce(s) Supporting Document(s) Thyrotropin [Units/volume] in Serum or Plasma 4.52 mIU/L 0. 40-4.50 Above high normal Tsh NORM ([facility]) Thyroxine (T4) free [Mass/volume] in Serum or Plasma 0.9 NG/dL 0 .8-1.8 T4, Free [place] ([facility]) ID Date Data Source [id number] 01/08/2021 09:23:[facility] Name Value Range Interpretation Code Description Data Jania rce(s) Supporting Document(s) ID Date Data Source [id number] 01/08/2021 09:23:00 AM EDT [facility]) Name Value Range Interpretation Code Description Data Jania rce(s) Supporting Document(s) ID Date Data Source [id number] 01/08/2021 09:23:00 [facility] Name Value Range Interpretation Code Description Data Jania rce(s) Supporting Document(s) ID Date Data Source [id number] 01/08/2021 09:23:00 [facility] Name Value Range Interpretation Code Description Data Jania rce(s) Supporting Document(s) ID Date Data Source [id number] 01/08/2021 09:23:00 [facility] Name Value Range Interpretation Code Description Data Jania rce(s) Supporting Document(s) ID Date Data Source [id number] 01/08/2021 09:23:00 AM EDT [facility]) Name Value Range Interpretation Code Description Data Jania rce(s) Supporting Document(s) ID Date Data Source [id number] 01/08/2021 09:23:00 [facility] Name Value Range Interpretation Code Description Data Jania rce(s) Supporting Document(s) ID Date Data Source [id number] 01/08/2021 09:23:00 AM EDT [facility]) Name Value Range Interpretation Code Description Data Jania rce(s) Supporting Document(s) ID Date Data Source [id number] 01/08[facility]2021 09:23[facility] Value Range Interpretation Code Description Data Jania rce(s) Supporting Document(s) ID Date Data Source [id number] 01/08/2021 09:23:00 [facility] Name Value Range Interpretation Code Description Data Jania rce(s) Supporting Document(s) ID Date Data Source [id number] 01/08/2021 09:23:00 [facility] Name Value Range Interpretation Code Description Data Jania rce(s) Supporting Document(s) ID Date Data Source [id number] 01/08/2021 09:23:00 AM [facility] Name Value Range Interpretation Code Description Data Jania rce(s) Supporting Document(s) ID Date Data Source [id number] 01/08/2021 09:23:00 AM [facility] Name Value Range Interpretation Code Description Data Jania rce(s) Supporting Document(s) ID Date Data Source [id number] 01/08/2021 09:23:00 AM [facility] Name Value Range Interpretation Code Description Data Jania rce(s) Supporting Document(s) ID Date Data Source [id number] 01/08/2021 09:23:00 AM EDT NORM ([facility]) Name Value Range Interpretation Code Description Data Jania rce(s) Supporting Document(s) ID Date Data Source [id number] 01/08/2021 09:23:00 AM [facility] Name Value Range Interpretation Code Description Data Jania rce(s) Supporting Document(s) ID Date Data Source [id number] 01/08/2021 09:23:00 AM [facility] Name Value Range Interpretation Code Description Data Jania rce(s) Supporting Document(s) ID Date Data Source [id number] 01/08/2021 09:23:00 AM [facility] Name Value Range Interpretation Code Description Data Jania rce(s) Supporting Document(s) ID Date Data Source [id number] 01/08/2021 09:23:00 AM [facility] Name Value Range Interpretation Code Description Data Jania rce(s) Supporting Document(s) ID Date Data Source [id number] 01/08/2021 09:23:00 AM [facility] Name Value Range Interpretation Code Description Data Jania rce(s) Supporting Document(s) ID Date Data Source [id number] 01/08/2021 09:23:00 [facility] Name Value Range Interpretation Code Description Data Jania rce(s) Supporting Document(s) ID Date Data Source [id number] 01/08/2021 09:23:00 AM EDT [place] ([facility]) Name Value Range Interpretation Code Description Data Jania rce(s) Supporting Document(s) ID Date Data Source [id number] 01/08/2021 09:23:00 AM EDT [facility]ORM ([facility]) Name Value Range Interpretation Code Description Data Jania rce(s) Supporting Document(s) ID Date Data Source [id number] 01/08/2021 09:23:00 AM EDT NORM ([facility]) Name Value Range Interpretation Code Description Data Jania rce(s) Supporting Document(s) ID Date Data Source [id number] 10/22/2020 10:14:00 AM EST [facility]) Name Value Range Interpretation Code Description Data Jania rce(s) Supporting Document(s) glucose, fasting 81 mg/dL 70-100 Glucose, Fasting AT [facility]) blood urea nitrogen 12 mg/dL 7-18 Blood Urea Nitro gen NORM ([facility]) glomerular filtration rate > 60.0 >60 Glomerula r Filtration Rate [place] ([facility]) creatinine for GFR 1.10 mg/dL 0.70-1.30 Creatinine for GF R [place] ([facility]) sodium level 138 mEq/L 136-145 Sodium Level NORM ([facility]) potassium serum 4.3 mEq/L 3.5-5.1 Potassium Serum ATHE NA ([facility]) carbon dioxide level 32 mEq/L 21-32 Carbon Dioxide Level NORM ([facility]) anion gap 2 mEq/L 8-16 Below low normal Anion Gap NORM ( [facility]) chloride level 104 mEq/L 98-107 Chloride Level NORM ([facility]) calcium level 9.0 mg/dL 8.5-10.1 Calcium Level [place] ( [facility]) ID Date Data Source [id number] 10/22/2020 10:14:00 AM EST [facility] ([facility]) Name Value Range Interpretation Code Description Data Jania rce(s) Supporting Document(s) glucose, fasting 81 mg/dL 70-100 Glucose, Fasting AT [facility] ([facility]) blood urea nitrogen 12 mg/dL 7-18 Blood Urea Nitro gen NORM ([facility]) creatinine for GFR 1.10 mg/dL 0.70-1.30 Creatinine for GF R NORM ([facility]) glomerular filtration rate > 60.0 >60 Glomerula r Filtration Rate NORM ([facility]) sodium level 138 mEq/L 136-145 Sodium Level NORM ([facility]) potassium serum 4.3 mEq/L 3.5-5.1 Potassium Serum ATHE NA ([facility]) carbon dioxide level 32 mEq/L 21-32 Carbon Dioxide Level [place] ([facility]) chloride level 104 mEq/L 98-107 Chloride Level [place] ([facility]) anion gap 2 mEq/L 8-16 Below low normal Anion Gap NORM ( [facility]) calcium level 9.0 mg/dL 8.5-10.1 Calcium Level [place] ( [facility]) ID Date Data Source [id number] 10/22/2020 10:14:00 AM EST [facility] ([facility]) Name Value Range Interpretation Code Description Data Jania rce(s) Supporting Document(s) glucose, fasting 81 mg/dL 70-100 Glucose, Fasting AT [facility] ([facility]) blood urea nitrogen 12 mg/dL 7-18 Blood Urea Nitro gen NORM ([facility]) creatinine for GFR 1.10 mg/dL 0.70-1.30 Creatinine for GF R NORM ([facility]) glomerular filtration rate > 60.0 >60 Glomerula r Filtration Rate NORM ([facility]) sodium level 138 mEq/L 136-145 Sodium Level NORM ([facility]) potassium serum 4.3 mEq/L 3.5-5.1 Potassium Serum ATHE NA ([facility]) chloride level 104 mEq/L 98-107 Chloride Level NORM ([facility]) carbon dioxide level 32 mEq/L 21-32 Carbon Dioxide Level NORM ([facility]) anion gap 2 mEq/L 8-16 Below low normal Anion Gap NORM ( [facility]) calcium level 9.0 mg/dL 8.5-10.1 Calcium Level [place] ( [facility]) ID Date Data Source [id number] 10/22/2020 10:14:00 AM EST [place] ([facility]) Name Value Range Interpretation Code Description Data Jania rce(s) Supporting Document(s) blood urea nitrogen 12 mg/dL 7-18 Blood Urea Nitro gen NORM ([facility]) glucose, fasting 81 mg/dL 70-100 Glucose, Fasting AT [facility] ([facility]) glomerular filtration rate > 60.0 >60 Glomerula r Filtration Rate [place] ([facility]) creatinine for GFR 1.10 mg/dL 0.70-1.30 Creatinine for GF R [place] ([facility]) potassium serum 4.3 mEq/L 3.5-5.1 Potassium Serum ATH NA ([facility]) sodium level 138 mEq/L 136-145 Sodium Level NORM ([facility]) chloride level 104 mEq/L 98-107 Chloride Level NORM ([facility]) anion gap 2 mEq/L 8-16 Below low normal Anion Gap NORM ( [facility]) carbon dioxide level 32 mEq/L 21-32 Carbon Dioxide Level [place] ([facility]) calcium level 9.0 mg/dL 8.5-10.1 Calcium Level [place] ( [facility]) ID Date Data Source [id number] 10/22/2020 10:14:00 AM EST [place] ([facility]) Name Value Range Interpretation Code Description Data Jania rce(s) Supporting Document(s) glucose, fasting 81 mg/dL 70-100 Glucose, Fasting AT [facility] ([facility]) creatinine for GFR 1.10 mg/dL 0.70-1.30 Creatinine for GF R NORM ([facility]) blood urea nitrogen 12 mg/dL 7-18 Blood Urea Nitro gen NORM ([facility]) glomerular filtration rate > 60.0 >60 Glomerula r Filtration Rate N[facility] ([facility]) sodium level 138 mEq/L 136-145 Sodium Level NORM ([facility]) potassium serum 4.3 mEq/L 3.5-5.1 Potassium Serum ATHE NA ([facility]) carbon dioxide level 32 mEq/L 21-32 Carbon Dioxide Level NORM ([facility]) chloride level 104 mEq/L 98-107 Chloride Level NORM ([facility]) anion gap 2 mEq/L 8-16 Below low normal Anion Gap NORM ( [facility]) calcium level 9.0 mg/dL 8.5-10.1 Calcium Level [place] ( [facility]) ID Date Data Source [id number] 10/22/2020 10:14:00 AM EST [place] ([facility]) Name Value Range Interpretation Code Description Data Jania rce(s) Supporting Document(s) glucose, fasting 81 mg/dL 70-100 Glucose, Fasting AT [facility]) blood urea nitrogen 12 mg/dL 7-18 Blood Urea Nitro gen NORM ([facility]) creatinine for GFR 1.10 mg/dL 0.70-1.30 Creatinine for GF R [place] ([facility]) glomerular filtration rate > 60.0 >60 Glomerula r Filtration Rate NORM ([facility]) sodium level 138 mEq/L 136-145 Sodium Level NORM ([facility]) potassium serum 4.3 mEq/L 3.5-5.1 Potassium Serum ATHE NA ([facility]) chloride level 104 mEq/L 98-107 Chloride Level NORM ([facility]) carbon dioxide level 32 mEq/L 21-32 Carbon Dioxide Level [place] ([facility]) calcium level 9.0 mg/dL 8.5-10.1 Calcium Level NORM ( [facility]) anion gap 2 mEq/L 8-16 Below low normal Anion Gap NORM ( [facility]) ID Date Data Source [id number] 10/22/2020 10:14:00 AM EST [facility] ([facility]) Name Value Range Interpretation Code Description Data Jania rce(s) Supporting Document(s) glucose, fasting 81 mg/dL 70-100 Glucose, Fasting AT [facility] ([facility]) creatinine for GFR 1.10 mg/dL 0.70-1.30 Creatinine for GF R NORM ([facility]) blood urea nitrogen 12 mg/dL 7-18 Blood Urea Nitro gen NORM ([facility]) glomerular filtration rate > 60.0 >60 Glomerula r Filtration Rate NORM ([facility]) chloride level 104 mEq/L 98-107 Chloride Level [facility]) potassium serum 4.3 mEq/L 3.5-5.1 Potassium Serum ATHE NA ([facility]) sodium level 138 mEq/L 136-145 Sodium Level NORM ([facility]) carbon dioxide level 32 mEq/L 21-32 Carbon Dioxide Level [place] ([facility]) anion gap 2 mEq/L 8-16 Below low normal Anion Gap [place] ( [facility]) calcium level 9.0 mg/dL 8.5-10.1 Calcium Level [place] ( [facility]) ID Date Data Source [id number] 10/22/2020 10:14:00 AM EST [facility] ([facility]) Name Value Range Interpretation Code Description Data Jania rce(s) Supporting Document(s) blood urea nitrogen 12 mg/dL 7-18 Blood Urea Nitro gen NORM ([facility]) glucose, fasting 81 mg/dL 70-100 Glucose, Fasting AT [facility] ([facility]) glomerular filtration rate > 60.0 >60 Glomerula r Filtration Rate N[facility] ([facility]) creatinine for GFR 1.10 mg/dL 0.70-1.30 Creatinine for GF R [place] ([facility]) potassium serum 4.3 mEq/L 3.5-5.1 Potassium Serum ATHE NA ([facility]) chloride level 104 mEq/L 98-107 Chloride Level NORM ([facility]) sodium level 138 mEq/L 136-145 Sodium Level NORM ([facility]) anion gap 2 mEq/L 8-16 Below low normal Anion Gap NORM ( [facility]) carbon dioxide level 32 mEq/L 21-32 Carbon Dioxide Level NORM ([facility]) calcium level 9.0 mg/dL 8.5-10.1 Calcium Level [place] ( [facility]) ID Date Data Source [id number] 10/22/2020 10:14:00 AM EST [facility]) Name Value Range Interpretation Code Description Data Jania rce(s) Supporting Document(s) glucose, fasting 81 mg/dL 70-100 Glucose, Fasting AT [facility]) blood urea nitrogen 12 mg/dL 7-18 Blood Urea Nitro gen [place] ([facility]) glomerular filtration rate > 60.0 >60 Glomerula r Filtration Rate NORM ([facility]) sodium level 138 mEq/L 136-145 Sodium Level NORM ([facility]) creatinine for GFR 1.10 mg/dL 0.70-1.30 Creatinine for GF R NORM ([facility]) chloride level 104 mEq/L 98-107 Chloride Level [place] ([facility]) potassium serum 4.3 mEq/L 3.5-5.1 Potassium Serum ATHE NA ([facility]) anion gap 2 mEq/L 8-16 Below low normal Anion Gap NORM ( [facility]) carbon dioxide level 32 mEq/L 21-32 Carbon Dioxide Level NORM ([facility]) calcium level 9.0 mg/dL 8.5-10.1 Calcium Level [place] ( [facility]) ID Date Data Source [id number] 09/13/2020 05:35:00 PM EST [place] ([facility]) Name Value Range Interpretation Code Description Data Jania rce(s) Supporting Document(s) lipase 179 U/L 73-393 Lipase [place] [facility]) ID Date Data Source [id number] 09/13/2020 05:35:00 PM EST [facility] ([facility]) Name Value Range Interpretation Code Description Data Jania rce(s) Supporting Document(s) blood urea nitrogen 10 mg/dL 7-18 Blood Urea Nitro gen [place] ([facility]) glucose, fasting 93 mg/dL 70-100 Glucose, Fasting AT [facility] ([facility]) creatinine for GFR 1.03 mg/dL 0.70-1.30 Creatinine for GF R NORM ([facility]) sodium level 140 mEq/L 136-145 Sodium Level [place] ([facility]) potassium serum 3.3 mEq/L 3.5-5.1 Below low normal Potassium Seru m [place] ([facility]) glomerular filtration rate > 60.0 >60 Glomerula r Filtration Rate [place] ([facility]) chloride level 101 mEq/L 98-107 Chloride Level [place] ([facility]) anion gap 10 mEq/L 8-16 Anion Gap [place] ([facility]) carbon dioxide level 29 mEq/L 21-32 Carbon Dioxide Level [place] ([facility]) calcium level 9.4 mg/dL 8.5-10.1 Calcium Level [place] ( [facility]) ID Date Data Source [id number] 09/13/2020 05:35:00 PM EST [facility] ([facility]) Name Value Range Interpretation Code Description Data Jania rce(s) Supporting Document(s) ALT/SGPT 29 U/L 12-78 ALT/SGPT [facility] ([facility]) AST/SGOT 16 U/L 7-37 AST/SGOT [place] ([facility]) alkaline phosphatase 72 U/L 45-117 Alkaline Phosph atase [place] ([facility]) bilirubin,total 0.4 mg/dL 0.2-1.0 Bilirubin,total AT[facility] ([facility]) bilirubin,direct < 0.1 0.0-0.2 Bilirubin,direct AT [facility] ([facility]) albumin/globulin ratio Albumin/globu veda Ratio NORM ([facility]) total protein 8.1 gm/dL 6.4-8.2 Total Protein NORM ( [facility]) albumin 4.7 gm/dL 3.2-5.2 Albumin NORM ([facility]) ID Date Data Source [id number] 09/13/2020 05:35:00 PM EST [facility] ([facility]) Name Value Range Interpretation Code Description Data Jania rce(s) Supporting Document(s) CK-mb value mass 1.3 NG/mL <3.6 CK-mb Value Mass AT [place] ([facility]) CPK creatine phosphokinase 136 U/L 39-308 CPK Creat ine Phosphokinase N[facility] ([facility]) mb/CK relative index < or =4 mb/CK Relative Index N[facility] ([facility]) troponin I < 0.02 < 0.10 Troponin I [facility] ([facility]) ID Date Data Source [id number] 09/13/2020 05:35:00 PM EST [facility] ([facility]) Name Value Range Interpretation Code Description Data Jania rce(s) Supporting Document(s) D-dimer quant < 270 <500 D-dimer Quant NORM ( [facility]) ID Date Data Source [id number] 09/13/2020 05:35:00 PM EST [facility] ([facility]) Name Value Range Interpretation Code Description Data Jania rce(s) Supporting Document(s) prothrombin time 13.1 seconds 12.5-14.3 Prothrombin Time [facility] ([facility]) partial thromboplastin time 31.0 seconds 24.2-38.5 Partial Thromboplastin Time [facility] ([facility]) INR Inr NORM ([facility]) ID Date Data Source [id number] 09/13/2020 05:35:00 PM EST [facility] ([facility]) Name Value Range Interpretation Code Description Data Jania rce(s) Supporting Document(s) lipase 179 U/L 73-393 Lipase [facility] ([facility]) ID Date Data Source [id number] 09/13/2020 05:35:00 PM EST [facility] ([facility]) Name Value Range Interpretation Code Description Data Jania rce(s) Supporting Document(s) glucose, fasting 93 mg/dL 70-100 Glucose, Fasting AT [facility]) blood urea nitrogen 10 mg/dL 7-18 Blood Urea Nitro gen NORM ([facility]) sodium level 140 mEq/L 136-145 Sodium Level NORM (No [facility]) glomerular filtration rate > 60.0 >60 Glomerula r Filtration Rate [place] ([facility]) creatinine for GFR 1.03 mg/dL 0.70-1.30 Creatinine for GF R [place] ([facility]) potassium serum 3.3 mEq/L 3.5-5.1 Below low normal Potassium Seru m NORM ([facility]) carbon dioxide level 29 mEq/L 21-32 Carbon Dioxide Level NORM ([facility]) chloride level 101 mEq/L 98-107 Chloride Level [place] ([facility]) anion gap 10 mEq/L 8-16 Anion Gap NORM ([facility]) calcium level 9.4 mg/dL 8.5-10.1 Calcium Level [place] ( [facility]) ID Date Data Source [id number] 09/13/2020 05:35:00 PM EST [facility] ([facility]) Name Value Range Interpretation Code Description Data Jania rce(s) Supporting Document(s) AST/SGOT 16 U/L 7-37 AST/SGOT [facility] ([facility]) alkaline phosphatase 72 U/L 45-117 Alkaline Phosph atase NORM ([facility]) ALT/SGPT 29 U/L 12-78 ALT/SGPT [facility] ([facility]) bilirubin,total 0.4 mg/dL 0.2-1.0 Bilirubin,total ATHE NA ([facility]) total protein 8.1 gm/dL 6.4-8.2 Total Protein NORM ( [facility]) bilirubin,direct < 0.1 0.0-0.2 Bilirubin,direct AT [facility] ([facility]) albumin 4.7 gm/dL 3.2-5.2 Albumin NORM ([facility]) albumin/globulin ratio Albumin/globu veda Ratio NORM ([facility]) ID Date Data Source [id number] 09/13/2020 05:35:00 PM EST [facility] ([facility]) Name Value Range Interpretation Code Description Data Jania rce(s) Supporting Document(s) CPK creatine phosphokinase 136 U/L 39-308 CPK Creat ine Phosphokinase [facility] ([facility]) CK-mb value mass 1.3 NG/mL <3.6 CK-mb Value Mass AT [facility] ([facility]) mb/CK relative index < or =4 mb/CK Relative Index NORM ([facility]) troponin I < 0.02 < 0.10 Troponin I N[facility] ([facility]) ID Date Data Source [id number] 09/13/2020 05:35:00 PM EST [facility] ([facility]) Name Value Range Interpretation Code Description Data Jania rce(s) Supporting Document(s) D-dimer quant < 270 <500 D-dimer Quant N[facility] ( [facility]) ID Date Data Source [id number] 09/13/2020 05:35:00 PM EST [facility] ([facility]) Name Value Range Interpretation Code Description Data Jania rce(s) Supporting Document(s) prothrombin time 13.1 seconds 12.5-14.3 Prothrombin Time N[facility] ([facility]) INR Inr NORM ([facility]) partial thromboplastin time 31.0 seconds 24.2-38.5 Partial Thromboplastin Time [facility] ([facility]) ID Date Data Source [id number] 09/13/2020 05:35:00 PM EST [facility] ([facility]) Name Value Range Interpretation Code Description Data Jania rce(s) Supporting Document(s) lipase 179 U/L 73-393 Lipase [facility] ([facility]) ID Date Data Source [id number] 09/13/2020 05:35:00 PM EST [place] ([facility]) Name Value Range Interpretation Code Description Data Jania rce(s) Supporting Document(s) glucose, fasting 93 mg/dL 70-100 Glucose, Fasting AT [facility]) blood urea nitrogen 10 mg/dL 7-18 Blood Urea Nitro gen [place] ([facility]) creatinine for GFR 1.03 mg/dL 0.70-1.30 Creatinine for GF R [place] ([facility]) glomerular filtration rate > 60.0 >60 Glomerula r Filtration Rate [place] ([facility]) sodium level 140 mEq/L 136-145 Sodium Level NORM (No [facility]) potassium serum 3.3 mEq/L 3.5-5.1 Below low normal Potassium Seru m [place] ([facility]) chloride level 101 mEq/L 98-107 Chloride Level [place] ([facility]) anion gap 10 mEq/L 8-16 Anion Gap [place] ([facility]) carbon dioxide level 29 mEq/L 21-32 Carbon Dioxide Level [place] ([facility]) calcium level 9.4 mg/dL 8.5-10.1 Calcium Level [place] ( [facility]) ID Date Data Source [id number] 09/13/2020 05:35:00 PM EST [facility] ([facility]) Name Value Range Interpretation Code Description Data Jania rce(s) Supporting Document(s) alkaline phosphatase 72 U/L 45-117 Alkaline Phosph atase N[facility] ([facility]) AST/SGOT 16 U/L 7-37 AST/SGOT [place] ([facility]) ALT/SGPT 29 U/L 12-78 ALT/SGPT [facility] ([facility]) bilirubin,direct < 0.1 0.0-0.2 Bilirubin,direct AT [facility] ([facility]) bilirubin,total 0.4 mg/dL 0.2-1.0 Bilirubin,total ATHE NA ([facility]) total protein 8.1 gm/dL 6.4-8.2 Total Protein NORM ( [facility]) albumin 4.7 gm/dL 3.2-5.2 Albumin NORM ([facility]) albumin/globulin ratio Albumin/globu veda Ratio NORM ([facility]) ID Date Data Source [id number] 09/13/2020 05:35:00 PM EST [facility] ([facility]) Name Value Range Interpretation Code Description Data Jania rce(s) Supporting Document(s) CPK creatine phosphokinase 136 U/L 39-308 CPK Creat ine Phosphokinase NORM ([facility]) CK-mb value mass 1.3 NG/mL <3.6 CK-mb Value Mass AT [facility] ([facility]) mb/CK relative index < or =4 mb/CK Relative Index NORM ([facility]) troponin I < 0.02 < 0.10 Troponin I NORM ([facility]) ID Date Data Source [id number] 09/13/2020 05:35:00 PM EST [facility] ([facility]) Name Value Range Interpretation Code Description Data Jania rce(s) Supporting Document(s) D-dimer quant < 270 <500 D-dimer Quant NORM ( [facility]) ID Date Data Source [id number] 09/13/2020 05:35:00 PM EST [facility] ([facility]) Name Value Range Interpretation Code Description Data Jania rce(s) Supporting Document(s) prothrombin time 13.1 seconds 12.5-14.3 Prothrombin Time NORM ([facility]) INR Inr NORM ([facility]) partial thromboplastin time 31.0 seconds 24.2-38.5 Partial Thromboplastin Time NORM ([facility]) ID Date Data Source [id number] 09/13/2020 05:35:00 PM EST NORM ([facility]) Name Value Range Interpretation Code Description Data Jania rce(s) Supporting Document(s) lipase 179 U/L 73-393 Lipase NORM ([facility]) ID Date Data Source [id number] 09/13/2020 05:35:00 PM EST NORM ([facility]) Name Value Range Interpretation Code Description Data Jania rce(s) Supporting Document(s) glucose, fasting 93 mg/dL 70-100 Glucose, Fasting AT [facility]) creatinine for GFR 1.03 mg/dL 0.70-1.30 Creatinine for GF R [place] ([facility]) blood urea nitrogen 10 mg/dL 7-18 Blood Urea Nitro gen [place] ([facility]) glomerular filtration rate > 60.0 >60 Glomerula r Filtration Rate NORM ([facility]) sodium level 140 mEq/L 136-145 Sodium Level NORM ([facility]) chloride level 101 mEq/L 98-107 Chloride Level [place] ([facility]) potassium serum 3.3 mEq/L 3.5-5.1 Below low normal Potassium Seru m [place] ([facility]) anion gap 10 mEq/L 8-16 Anion Gap [place] ([facility]) calcium level 9.4 mg/dL 8.5-10.1 Calcium Level NORM ( [facility]) carbon dioxide level 29 mEq/L 21-32 Carbon Dioxide Level [place] ([facility]) ID Date Data Source [id number] 09/13/2020 05:35:00 PM EST NORM ([facility]) Name Value Range Interpretation Code Description Data Jania rce(s) Supporting Document(s) AST/SGOT 16 U/L 7-37 AST/SGOT NORM ([facility]) ALT/SGPT 29 U/L 12-78 ALT/SGPT NORM ([facility]) alkaline phosphatase 72 U/L 45-117 Alkaline Phosph atase NORM ([facility]) bilirubin,total 0.4 mg/dL 0.2-1.0 Bilirubin,total ATHE ([facility]) bilirubin,direct < 0.1 0.0-0.2 Bilirubin,direct AT [facility] ([facility]) albumin 4.7 gm/dL 3.2-5.2 Albumin NORM ([facility]) total protein 8.1 gm/dL 6.4-8.2 Total Protein NORM ( [facility]) albumin/globulin ratio Albumin/globu veda Ratio NORM ([facility]) ID Date Data Source [id number] 09/13/2020 05:35:00 PM EST NORM ([facility]) Name Value Range Interpretation Code Description Data Jania rce(s) Supporting Document(s) CPK creatine phosphokinase 136 U/L 39-308 CPK Creat ine Phosphokinase NORM ([facility]) CK-mb value mass 1.3 NG/mL <3.6 CK-mb Value Mass AT [facility] ([facility]) mb/CK relative index < or =4 mb/CK Relative Index NORM ([facility]) troponin I < 0.02 < 0.10 Troponin I NORM ([facility]) ID Date Data Source [id number] 09/13/2020 05:35:00 PM EST NORM ([facility]) Name Value Range Interpretation Code Description Data Jania rce(s) Supporting Document(s) D-dimer quant < 270 <500 [facility] Date Data Source [id number] 09/13/2020 05:35:00 PM EST NORM ([facility]) Name Value Range Interpretation Code Description Data Jania rce(s) Supporting Document(s) prothrombin time 13.1 seconds 12.5-14.3 Prothrombin Time NORM ([facility]) partial thromboplastin time 31.0 seconds 24.2-38.5 Partial Thromboplastin Time NORM ([facility]) INR Inr NORM ([facility]) ID Date Data Source [id number] 09/13/2020 05:35:00 PM EST NORM ([facility]) Name Value Range Interpretation Code Description Data Jania rce(s) Supporting Document(s) lipase 179 U/L 73-393 Lipase NORM ([facility]) ID Date Data Source [id number] 09/13/2020 05:35:00 PM EST NORM ([facility]) Name Value Range Interpretation Code Description Data Jania rce(s) Supporting Document(s) glucose, fasting 93 mg/dL 70-100 Glucose, Fasting AT [facility]) blood urea nitrogen 10 mg/dL 7-18 Blood Urea Nitro gen NORM ([facility]) creatinine for GFR 1.03 mg/dL 0.70-1.30 Creatinine for GF R [place] ([facility]) glomerular filtration rate > 60.0 >60 Glomerula r Filtration Rate NORM ([facility]) carbon dioxide level 29 mEq/L 21-32 Carbon Dioxide Level [place] ([facility]) potassium serum 3.3 mEq/L 3.5-5.1 Below low normal Potassium Seru m NORM ([facility]) sodium level 140 mEq/L 136-145 Sodium Level NORM ([facility]) chloride level 101 mEq/L 98-107 Chloride Level NORM ([facility]) calcium level 9.4 mg/dL 8.5-10.1 Calcium Level NORM ( [facility]) anion gap 10 mEq/L 8-16 Anion Gap [place] ([facility]) ID Date Data Source [id number] 09/13/2020 05:35:00 PM EST NORM ([facility]) Name Value Range Interpretation Code Description Data Jania rce(s) Supporting Document(s) alkaline phosphatase 72 U/L 45-117 Alkaline Phosph atase NORM ([facility]) AST/SGOT 16 U/L 7-37 AST/SGOT NORM ([facility]) ALT/SGPT 29 U/L 12-78 ALT/SGPT NORM ([facility]) bilirubin,total 0.4 mg/dL 0.2-1.0 Bilirubin,total ATHE NA ([facility]) bilirubin,direct < 0.1 0.0-0.2 Bilirubin,direct AT [facility] ([facility]) total protein 8.1 gm/dL 6.4-8.2 Total Protein NORM ( [facility]) albumin/globulin ratio Albumin/globu veda Ratio NORM ([facility]) albumin 4.7 gm/dL 3.2-5.2 Albumin NORM ([facility]) ID Date Data Source [id number] 09/13/2020 05:35:00 PM EST NORM ([facility]) Name Value Range Interpretation Code Description Data Jania rce(s) Supporting Document(s) mb/CK relative index < or =4 mb/CK Relative Index NORM ([facility]) CK-mb value mass 1.3 NG/mL <3.6 CK-mb Value Mass AT [facility] ([facility]) CPK creatine phosphokinase 136 U/L 39-308 CPK Creat ine Phosphokinase NORM ([facility]) troponin I < 0.02 < 0.10 Troponin I NORM ([facility]) ID Date Data Source [id number] 09/13/2020 05:35:00 PM EST NORM ([facility]) Name Value Range Interpretation Code Description Data Jania rce(s) Supporting Document(s) D-dimer quant < 270 <500 D-dimer Quant NORM ( [facility]) ID Date Data Source [id number] 09/13/2020 05:35:00 PM EST NORM ([facility]) Name Value Range Interpretation Code Description Data Jania rce(s) Supporting Document(s) prothrombin time 13.1 seconds 12.5-14.3 Prothrombin Time NORM ([facility]) partial thromboplastin time 31.0 seconds 24.2-38.5 Partial Thromboplastin Time NORM ([facility]) INR Inr [place] ([facility]) ID Date Data Source [id number] 09/13/2020 05:35:00 PM EST NORM ([facility]) Name Value Range Interpretation Code Description Data Jania rce(s) Supporting Document(s) lipase 179 U/L 73-393 Lipase [place] ([facility]) ID Date Data Source [id number] 09/13/2020 05:35:00 PM EST NORM ([facility]) Name Value Range Interpretation Code Description Data Jania rce(s) Supporting Document(s) glucose, fasting 93 mg/dL 70-100 Glucose, Fasting AT [facility]) blood urea nitrogen 10 mg/dL 7-18 Blood Urea Nitro gen [place] ([facility]) creatinine for GFR 1.03 mg/dL 0.70-1.30 Creatinine for GF R [place] ([facility]) glomerular filtration rate > 60.0 >60 Glomerula r Filtration Rate [place] ([facility]) sodium level 140 mEq/L 136-145 Sodium Level NORM ([facility]) potassium serum 3.3 mEq/L 3.5-5.1 Below low normal Potassium Seru m [place] ([facility]) anion gap 10 mEq/L 8-16 Anion Gap NORM ([facility]) chloride level 101 mEq/L 98-107 Chloride Level [place] ([facility]) carbon dioxide level 29 mEq/L 21-32 Carbon Dioxide Level [place] ([facility]) calcium level 9.4 mg/dL 8.5-10.1 Calcium Level [facility]) ID Date Data Source [id number] 09/13/2020 05:35:00 PM EST NORM ([facility]) Name Value Range Interpretation Code Description Data Jania rce(s) Supporting Document(s) alkaline phosphatase 72 U/L 45-117 Alkaline Phosph atase NORM ([facility]) AST/SGOT 16 U/L 7-37 AST/SGOT NORM ([facility]) ALT/SGPT 29 U/L 12-78 ALT/SGPT NORM ([facility]) bilirubin,total 0.4 mg/dL 0.2-1.0 Bilirubin,total ATHE ([facility]) total protein 8.1 gm/dL 6.4-8.2 Total Protein NORM ( [facility]) bilirubin,direct < 0.1 0.0-0.2 Bilirubin,direct AT [facility] ([facility]) albumin 4.7 gm/dL 3.2-5.2 Albumin NORM ([facility]) albumin/globulin ratio Albumin/globu veda Ratio NORM ([facility]) ID Date Data Source [id number] 09/13/2020 05:35:00 PM EST NORM ([facility]) Name Value Range Interpretation Code Description Data Jania rce(s) Supporting Document(s) CK-mb value mass 1.3 NG/mL <3.6 CK-mb Value Mass AT [facility] ([facility]) CPK creatine phosphokinase 136 U/L 39-308 CPK Creat ine Phosphokinase NORM ([facility]) mb/CK relative index < or =4 mb/CK Relative Index NORM ([facility]) troponin I < 0.02 < 0.10 Troponin I NORM ([facility]) ID Date Data Source [id number] 09/13/2020 05:35:00 PM EST NORM ([facility]) Name Value Range Interpretation Code Description Data Jania rce(s) Supporting Document(s) D-dimer quant < 270 <500 D-dimer Quant NORM ( [facility]) ID Date Data Source [id number] 09/13/2020 05:35:00 PM EST NORM ([facility]) Name Value Range Interpretation Code Description Data Jania rce(s) Supporting Document(s) INR Inr NORM ([facility]) prothrombin time 13.1 seconds 12.5-14.3 Prothrombin Time NORM ([facility]) partial thromboplastin time 31.0 seconds 24.2-38.5 Partial Thromboplastin Time [place] ([facility]) ID Date Data Source [id number] 09/13/2020 05:35:00 PM EST NORM ([facility]) Name Value Range Interpretation Code Description Data Jania rce(s) Supporting Document(s) lipase 179 U/L 73-393 Lipase [place] ([facility]) ID Date Data Source [id number] 09/13/2020 05:35:00 PM EST [place] ([facility]) Name Value Range Interpretation Code Description Data Jania rce(s) Supporting Document(s) glucose, fasting 93 mg/dL 70-100 Glucose, Fasting AT [facility]) blood urea nitrogen 10 mg/dL 7-18 Blood Urea Nitro gen [place] ([facility]) glomerular filtration rate > 60.0 >60 Glomerula r Filtration Rate [place] ([facility]) creatinine for GFR 1.03 mg/dL 0.70-1.30 Creatinine for GF R [place] ([facility]) chloride level 101 mEq/L 98-107 Chloride Level [place] ([facility]) sodium level 140 mEq/L 136-145 Sodium Level NORM ([facility]) potassium serum 3.3 mEq/L 3.5-5.1 Below low normal Potassium Seru m [place] ([facility]) carbon dioxide level 29 mEq/L 21-32 Carbon Dioxide Level [place] ([facility]) anion gap 10 mEq/L 8-16 Anion Gap NORM ([facility]) calcium level 9.4 mg/dL 8.5-10.1 Calcium Level NORM ( [facility]) ID Date Data Source [id number] 09/13/2020 05:35:00 PM EST NORM ([facility]) Name Value Range Interpretation Code Description Data Jania rce(s) Supporting Document(s) AST/SGOT 16 U/L 7-37 AST/SGOT NORM ([facility]) ALT/SGPT 29 U/L 12-78 ALT/SGPT NORM ([facility]) alkaline phosphatase 72 U/L 45-117 Alkaline Phosph atase NORM ([facility]) bilirubin,total 0.4 mg/dL 0.2-1.0 Bilirubin,total ATHE ([facility]) total protein 8.1 gm/dL 6.4-8.2 Total Protein NORM ( [facility]) bilirubin,direct < 0.1 0.0-0.2 Bilirubin,direct AT [facility] ([facility]) albumin 4.7 gm/dL 3.2-5.2 Albumin NORM ([facility]) albumin/globulin ratio Albumin/globu veda Ratio NORM ([facility]) ID Date Data Source [id number] 09/13/2020 05:35:00 PM EST NORM ([facility]) Name Value Range Interpretation Code Description Data Jania rce(s) Supporting Document(s) CPK creatine phosphokinase 136 U/L 39-308 CPK Creat ine Phosphokinase NORM ([facility]) mb/CK relative index < or =4 mb/CK Relative Index NORM ([facility]) CK-mb value mass 1.3 NG/mL <3.6 CK-mb Value Mass AT [facility] ([facility]) troponin I < 0.02 < 0.10 Troponin I NORM ([facility]) ID Date Data Source [id number] 09/13/2020 05:35:00 PM EST NORM ([facility]) Name Value Range Interpretation Code Description Data Jania rce(s) Supporting Document(s) D-dimer quant < 270 <500 D-dimer Quant NORM ( [facility]) ID Date Data Source [id number] 09/13/2020 05:35:00 PM EST NORM ([facility]) Name Value Range Interpretation Code Description Data Jania rce(s) Supporting Document(s) INR Inr NORM ([facility]) prothrombin time 13.1 seconds 12.5-14.3 Prothrombin Time NORM ([facility]) partial thromboplastin time 31.0 seconds 24.2-38.5 Partial Thromboplastin Time [place] ([facility]) ID Date Data Source [id number] 09/13/2020 05:35:00 PM EST NORM ([facility]) Name Value Range Interpretation Code Description Data Jania rce(s) Supporting Document(s) lipase 179 U/L 73-393 Lipase NORM ([facility]) ID Date Data Source [id number] 09/13/2020 05:35:00 PM EST NORM ([facility]) Name Value Range Interpretation Code Description Data Jania rce(s) Supporting Document(s) blood urea nitrogen 10 mg/dL 7-18 Blood Urea Nitro gen NORM ([facility]) glucose, fasting 93 mg/dL 70-100 Glucose, Fasting AT [facility] ([facility]) creatinine for GFR 1.03 mg/dL 0.70-1.30 Creatinine for GF R NORM ([facility]) sodium level 140 mEq/L 136-145 Sodium Level NORM ([facility]) potassium serum 3.3 mEq/L 3.5-5.1 Below low normal Potassium Seru m [place] ([facility]) glomerular filtration rate > 60.0 >60 Glomerula r Filtration Rate [place] ([facility]) anion gap 10 mEq/L 8-16 Anion Gap NORM ([facility]) chloride level 101 mEq/L 98-107 Chloride Level NORM ([facility]) carbon dioxide level 29 mEq/L 21-32 Carbon Dioxide Level NORM ([facility]) calcium level 9.4 mg/dL 8.5-10.1 Calcium Level NORM ( [facility]) ID Date Data Source [id number] 09/13/2020 05:35:00 PM EST NORM ([facility]) Name Value Range Interpretation Code Description Data Jania rce(s) Supporting Document(s) ALT/SGPT 29 U/L 12-78 ALT/SGPT NORM ([facility]) alkaline phosphatase 72 U/L 45-117 Alkaline Phosph atase NORM ([facility]) AST/SGOT 16 U/L 7-37 AST/SGOT NORM ([facility]) bilirubin,direct < 0.1 0.0-0.2 Bilirubin,direct AT [facility] ([facility]) bilirubin,total 0.4 mg/dL 0.2-1.0 Bilirubin,total ATHE ([facility]) total protein 8.1 gm/dL 6.4-8.2 Total Protein NORM ( [facility]) albumin/globulin ratio Albumin/globu veda Ratio NORM ([facility]) albumin 4.7 gm/dL 3.2-5.2 Albumin NORM ([facility]) ID Date Data Source [id number] 09/13/2020 05:35:00 PM EST NORM ([facility]) Name Value Range Interpretation Code Description Data Jania rce(s) Supporting Document(s) CPK creatine phosphokinase 136 U/L 39-308 CPK Creat ine Phosphokinase NORM ([facility]) mb/CK relative index < or =4 mb/CK Relative Index NORM ([facility]) CK-mb value mass 1.3 NG/mL <3.6 CK-mb Value Mass AT [facility] ([facility]) troponin I < 0.02 < 0.10 Troponin I NORM ([facility]) ID Date Data Source [id number] 09/13/2020 05:35:00 PM EST NORM ([facility]) Name Value Range Interpretation Code Description Data Jania rce(s) Supporting Document(s) D-dimer quant < 270 <500 D-dimer Quant NORM ( [facility]) ID Date Data Source [id number] 09/13/2020 05:35:00 PM EST NORM ([facility]) Name Value Range Interpretation Code Description Data Jania rce(s) Supporting Document(s) prothrombin time 13.1 seconds 12.5-14.3 Prothrombin Time [place] ([facility]) INR Inr [place] ([facility]) partial thromboplastin time 31.0 seconds 24.2-38.5 Partial Thromboplastin Time [place] ([facility]) ID Date Data Source [id number] 09/13/2020 05:35:00 PM EST NORM ([facility]) Name Value Range Interpretation Code Description Data Jania rce(s) Supporting Document(s) lipase 179 U/L 73-393 Lipase NORM ([facility]) ID Date Data Source [id number] 09/13/2020 05:35:00 PM EST NORM ([facility]) Name Value Range Interpretation Code Description Data Jania rce(s) Supporting Document(s) glucose, fasting 93 mg/dL 70-100 Glucose, Fasting AT [facility] ([facility]) creatinine for GFR 1.03 mg/dL 0.70-1.30 Creatinine for GF R [place] ([facility]) blood urea nitrogen 10 mg/dL 7-18 Blood Urea Nitro gen NORM ([facility]) glomerular filtration rate > 60.0 >60 Glomerula r Filtration Rate [place] ([facility]) potassium serum 3.3 mEq/L 3.5-5.1 Below low normal Potassium Seru m NORM ([facility]) sodium level 140 mEq/L 136-145 Sodium Level NORM ([facility]) chloride level 101 mEq/L 98-107 Chloride Level NORM ([facility]) calcium level 9.4 mg/dL 8.5-10.1 Calcium Level NORM ( [facility]) carbon dioxide level 29 mEq/L 21-32 Carbon Dioxide Level NORM ([facility]) anion gap 10 mEq/L 8-16 Anion Gap NORM ([facility]) ID Date Data Source [id number] 09/13/2020 05:35:00 PM EST NORM ([facility]) Name Value Range Interpretation Code Description Data Jania rce(s) Supporting Document(s) AST/SGOT 16 U/L 7-37 AST/SGOT NORM ([facility]) ALT/SGPT 29 U/L 12-78 ALT/SGPT NORM ([facility]) bilirubin,total 0.4 mg/dL 0.2-1.0 [facility]) bilirubin,direct < 0.1 0.0-0.2 Bilirubin,direct AT [facility]) alkaline phosphatase 72 U/L 45-117 Alkaline Phosph atase NORM ([facility]) albumin 4.7 gm/dL 3.2-5.2 Albumin NORM ([facility]) albumin/globulin ratio Albumin/globu veda Ratio NORM ([facility]) total protein 8.1 gm/dL 6.4-8.2 Total Protein NORM ( [facility]) ID Date Data Source [id number] 09/13/2020 05:35:00 PM EST NORM ([facility]) Name Value Range Interpretation Code Description Data Jania rce(s) Supporting Document(s) CK-mb value mass 1.3 NG/mL <3.6 CK-mb Value Mass AT [facility]) mb/CK relative index < or =4 mb/CK Relative Index NORM ([facility]) CPK creatine phosphokinase 136 U/L 39-308 CPK Creat ine Phosphokinase NORM ([facility]) troponin I < 0.02 < 0.10 Troponin I NORM ([facility]) ID Date Data Source [id number] 09/13/2020 05:35:00 PM EST NORM ([facility]) Name Value Range Interpretation Code Description Data Jania rce(s) Supporting Document(s) D-dimer quant < 270 <500 D-dimer Quant NORM ( [facility]) ID Date Data Source [id number] 09/13/2020 05:35:00 PM EST NORM ([facility]) Name Value Range Interpretation Code Description Data Jania rce(s) Supporting Document(s) INR Inr NORM ([facility]) prothrombin time 13.1 seconds 12.5-14.3 Prothrombin Time NORM ([facility]) partial thromboplastin time 31.0 seconds 24.2-38.5 Partial Thromboplastin Time NORM ([facility]) ID Date Data Source [id number] 09/13/2020 05:35:00 PM EST NORM ([facility]) Name Value Range Interpretation Code Description Data Jania rce(s) Supporting Document(s) lipase 179 U/L 73-393 Lipase NORM ([facility]) ID Date Data Source [id number] 09/13/2020 05:35:00 PM EST NORM ([facility]) Name Value Range Interpretation Code Description Data Jania rce(s) Supporting Document(s) glucose, fasting 93 mg/dL 70-100 Glucose, Fasting AT [facility] ([facility]) creatinine for GFR 1.03 mg/dL 0.70-1.30 Creatinine for GF R NORM ([facility]) blood urea nitrogen 10 mg/dL 7-18 Blood Urea Nitro gen NORM ([facility]) sodium level 140 mEq/L 136-145 Sodium Level NORM (No [facility]) glomerular filtration rate > 60.0 >60 Glomerula r Filtration Rate NORM ([facility]) potassium serum 3.3 mEq/L 3.5-5.1 Below low normal Potassium Seru m NORM ([facility]) calcium level 9.4 mg/dL 8.5-10.1 Calcium Level NORM ( [facility]) carbon dioxide level 29 mEq/L 21-32 Carbon Dioxide Level NORM ([facility]) anion gap 10 mEq/L 8-16 Anion Gap NORM ([facility]) chloride level 101 mEq/L 98-107 Chloride Level NORM ([facility]) ID Date Data Source [id number] 09/13/2020 05:35:00 PM EST NORM ([facility]) Name Value Range Interpretation Code Description Data Jania rce(s) Supporting Document(s) AST/SGOT 16 U/L 7-37 AST/SGOT NORM ([facility]) ALT/SGPT 29 U/L 12-78 ALT/SGPT NORM ([facility]) total protein 8.1 gm/dL 6.4-8.2 Total Protein NORM ( [facility]) bilirubin,direct < 0.1 0.0-0.2 Bilirubin,direct AT [facility] ([facility]) bilirubin,total 0.4 mg/dL 0.2-1.0 Bilirubin,total ATHE NA ([facility]) alkaline phosphatase 72 U/L 45-117 Alkaline Phosph atase NORM ([facility]) albumin/globulin ratio Albumin/globu veda Ratio NORM ([facility]) albumin 4.7 gm/dL 3.2-5.2 Albumin NORM ([facility]) ID Date Data Source [id number] 09/13/2020 05:35:00 PM EST NORM ([facility]) Name Value Range Interpretation Code Description Data Jania rce(s) Supporting Document(s) CPK creatine phosphokinase 136 U/L 39-308 CPK Creat ine Phosphokinase NORM ([facility]) mb/CK relative index < or =4 mb/CK Relative Index NORM ([facility]) troponin I < 0.02 < 0.10 Troponin I [place] ([facility]) CK-mb value mass 1.3 NG/mL <3.6 CK-mb Value Mass AT [place] ([facility]) ID Date Data Source [id number] 09/13/2020 05:35:00 PM EST NORM ([facility]) Name Value Range Interpretation Code Description Data Jania rce(s) Supporting Document(s) D-dimer quant < 270 <500 D-dimer Quant [place] ( [facility]) ID Date Data Source [id number] 09/13/2020 05:35:00 PM EST NORM ([facility]) Name Value Range Interpretation Code Description Data Jania rce(s) Supporting Document(s) prothrombin time 13.1 seconds 12.5-14.3 Prothrombin Time [place] ([facility]) INR Inr [place] ([facility]) partial thromboplastin time 31.0 seconds 24.2-38.5 Partial Thromboplastin Time [place] ([facility]) ID Date Data Source [id number] 09/13/2020 05:35:00 PM EST NORM ([facility]) Name Value Range Interpretation Code Description Data Jania rce(s) Supporting Document(s) lipase 179 U/L 73-393 Lipase NORM ([facility]) ID Date Data Source [id number] 09/13/2020 05:35:00 PM EST NORM ([facility]) Name Value Range Interpretation Code Description Data Jania rce(s) Supporting Document(s) blood urea nitrogen 10 mg/dL 7-18 Blood Urea Nitro gen NORM ([facility]) glucose, fasting 93 mg/dL 70-100 Glucose, Fasting AT [facility] ([facility]) creatinine for GFR 1.03 mg/dL 0.70-1.30 Creatinine for GF R NORM ([facility]) sodium level 140 mEq/L 136-145 Sodium Level NORM (No [facility]) potassium serum 3.3 mEq/L 3.5-5.1 Below low normal Potassium Seru m NORM ([facility]) glomerular filtration rate > 60.0 >60 Glomerula r Filtration Rate NORM ([facility]) chloride level 101 mEq/L 98-107 Chloride Level NORM ([facility]) carbon dioxide level 29 mEq/L 21-32 Carbon Dioxide Level NORM ([facility]) calcium level 9.4 mg/dL 8.5-10.1 Calcium Level [place] ( [facility]) anion gap 10 mEq/L 8-16 Anion Gap NORM ([facility]) ID Date Data Source [id number] 09/13/2020 05:35:00 PM EST NORM ([facility]) Name Value Range Interpretation Code Description Data Jania rce(s) Supporting Document(s) ALT/SGPT 29 U/L 12-78 ALT/SGPT NORM ([facility]) AST/SGOT 16 U/L 7-37 AST/SGOT NORM ([facility]) bilirubin,total 0.4 mg/dL 0.2-1.0 Bilirubin,total ATHE NA ([facility]) total protein 8.1 gm/dL 6.4-8.2 Total Protein NORM ( [facility]) bilirubin,direct < 0.1 0.0-0.2 Bilirubin,direct AT [facility] ([facility]) alkaline phosphatase 72 U/L 45-117 Alkaline Phosph atase NORM ([facility]) albumin/globulin ratio Albumin/globu veda Ratio NORM ([facility]) albumin 4.7 gm/dL 3.2-5.2 Albumin [place] ([facility]) ID Date Data Source [id number] 09/13/2020 05:35:00 PM EST NORM ([facility]) Name Value Range Interpretation Code Description Data Jania rce(s) Supporting Document(s) CPK creatine phosphokinase 136 U/L 39-308 CPK Creat ine Phosphokinase NORM ([facility]) mb/CK relative index < or =4 mb/CK Relative Index NORM ([facility]) CK-mb value mass 1.3 NG/mL <3.6 CK-mb Value Mass AT [place] ([facility]) troponin I < 0.02 < 0.10 Troponin I NORM ([facility]) ID Date Data Source [id number] 09/13/2020 05:35:00 PM EST NORM ([facility]) Name Value Range Interpretation Code Description Data Jania rce(s) Supporting Document(s) D-dimer quant < 270 <500 D-dimer Quant NORM ( [facility]) ID Date Data Source [id number] 09/13/2020 05:35:00 PM EST NORM ([facility]) Name Value Range Interpretation Code Description Data Jania rce(s) Supporting Document(s) prothrombin time 13.1 seconds 12.5-14.3 Prothrombin Time NORM ([facility]) INR Inr NORM ([facility]) partial thromboplastin time 31.0 seconds 24.2-38.5 Partial Thromboplastin Time NORM ([facility]) ID Date Data Source [id number] 09/13/2020 04:55:00 PM EST NORM ([facility]) Name Value Range Interpretation Code Description Data Jania rce(s) Supporting Document(s) istat troponin 0.00 NG/mL 0.00-0.08 Istat Troponin NORM ([facility]) ID Date Data Source [id number] 09/13/2020 04:55:00 PM EST NORM ([facility]) Name Value Range Interpretation Code Description Data Jania rce(s) Supporting Document(s) istat troponin 0.00 NG/mL 0.00-0.08 Istat Troponin NORM ([facility]) ID Date Data Source [id number] 09/13/2020 04:55:00 PM EST NORM ([facility]) Name Value Range Interpretation Code Description Data Jania rce(s) Supporting Document(s) istat troponin 0.00 NG/mL 0.00-0.08 Istat Troponin NORM ([facility]) ID Date Data Source [id number] 09/13/2020 04:55:00 PM EST NORM ([facility]) Name Value Range Interpretation Code Description Data Jania rce(s) Supporting Document(s) istat troponin 0.00 NG/mL 0.00-0.08 Istat Troponin NORM ([facility]) ID Date Data Source [id number] 09/13/2020 04:55:00 PM EST NORM ([facility]) Name Value Range Interpretation Code Description Data Jania rce(s) Supporting Document(s) istat troponin 0.00 NG/mL 0.00-0.08 Istat Troponin NORM ([facility]) ID Date Data Source [id number] 09/13/2020 04:55:00 PM EST NORM ([facility]) Name Value Range Interpretation Code Description Data Jania rce(s) Supporting Document(s) istat troponin 0.00 NG/mL 0.00-0.08 Istat Troponin NORM ([facility]) ID Date Data Source [id number] 09/13/2020 04:55:00 PM EST NORM ([facility]) Name Value Range Interpretation Code Description Data Jania rce(s) Supporting Document(s) istat troponin 0.00 NG/mL 0.00-0.08 Istat Troponin NORM ([facility]) ID Date Data Source [id number] 09/13/2020 04:55:00 PM EST NORM ([facility]) Name Value Range Interpretation Code Description Data Jania rce(s) Supporting Document(s) istat troponin 0.00 NG/mL 0.00-0.08 Istat Troponin NORM ([facility]) ID Date Data Source [id number] 09/13/2020 04:55:00 PM EST NORM ([facility]) Name Value Range Interpretation Code Description Data Jania rce(s) Supporting Document(s) istat troponin 0.00 NG/mL 0.00-0.08 Istat Troponin NORM ([facility]) ID Date Data Source [id number] 09/13/2020 04:55:00 PM EST NORM ([facility]) Name Value Range Interpretation Code Description Data Jania rce(s) Supporting Document(s) istat troponin 0.00 NG/mL 0.00-0.08 Istat Troponin NORM ([facility]) ID Date Data Source [id number] 09/13/2020 04:55:00 PM EST NORM ([facility]) Name Value Range Interpretation Code Description Data Jania rce(s) Supporting Document(s) istat troponin 0.00 NG/mL 0.00-0.08 Istat Troponin NORM ([facility]) ID Date Data Source [id number] 09/13/2020 04:54:00 PM EST NORM ([facility]) Name Value Range Interpretation Code Description Data Jania rce(s) Supporting Document(s) istat glucose 93 mg/dL 70-105 Istat Glucose NORM ( [facility]) istat HCT 49.0 % 38.0-51.0 Istat HCT NORM ([facility]) istat sodium 139 mEq/L 136-145 Istat Sodium NORM (No [facility]) istat potassium 3.1 mEq/L 3.5-5.1 Below low normal Istat Potassiu m NORM ([facility]) istat chloride 101 mEq/L 98-109 Istat Chloride NORM ([facility]) istat Ca++ 4.5 mg/dL 4.5-5.3 Istat Ca++ NORM ([facility]) istat CO2 28.0 mm/L 23.0-27.0 Above high normal Istat CO2 [place] ([facility]) istat BUN 10 mg/dL 8-26 Istat BUN [place] ([facility]) istat creatinine 0.9 mg/dL 0.6-1.3 Istat Creatinine AT [facility] ([facility]) ID Date Data Source [id number] 09/13/2020 04:54:00 PM EST [place] ([facility]) Name Value Range Interpretation Code Description Data Jania rce(s) Supporting Document(s) istat HCT 49.0 % 38.0-51.0 Istat HCT [place] ([facility]) istat glucose 93 mg/dL 70-105 Istat Glucose NORM ( [facility]) istat sodium 139 mEq/L 136-145 Istat Sodium NORM ([facility]) istat potassium 3.1 mEq/L 3.5-5.1 Below low normal Istat Potassiu m NORM ([facility]) istat Ca++ 4.5 mg/dL 4.5-5.3 Istat Ca++ NORM ([facility]) istat chloride 101 mEq/L 98-109 Istat Chloride NORM ([facility]) istat CO2 28.0 mm/L 23.0-27.0 Above high normal Istat CO2 NORM ([facility]) istat BUN 10 mg/dL 8-26 Istat BUN NORM ([facility]) istat creatinine 0.9 mg/dL 0.6-1.3 Istat Creatinine AT [facility] ([facility]) ID Date Data Source [id number] 09/13/2020 04:54:00 PM EST NORM ([facility]) Name Value Range Interpretation Code Description Data Jania rce(s) Supporting Document(s) istat HCT 49.0 % 38.0-51.0 Istat HCT NORM ([facility]) istat glucose 93 mg/dL 70-105 Istat Glucose NORM ( [facility]) istat sodium 139 mEq/L 136-145 Istat Sodium NORM ([facility]) istat potassium 3.1 mEq/L 3.5-5.1 Below low normal Istat Potassiu m NORM ([facility]) istat Ca++ 4.5 mg/dL 4.5-5.3 Istat Ca++ [place] ([facility]) istat CO2 28.0 mm/L 23.0-27.0 Above high normal Istat CO2 [place] ([facility]) istat chloride 101 mEq/L 98-109 Istat Chloride [place] ([facility]) istat creatinine 0.9 mg/dL 0.6-1.3 Istat Creatinine AT [facility] ([facility]) istat BUN 10 mg/dL 8-26 Istat BUN NORM ([facility]) ID Date Data Source [id number] 09/13/2020 04:54:00 PM EST NORM ([facility]) Name Value Range Interpretation Code Description Data Jania rce(s) Supporting Document(s) istat HCT 49.0 % 38.0-51.0 Istat HCT NORM ([facility]) istat glucose 93 mg/dL 70-105 Istat Glucose NORM ( [facility]) istat potassium 3.1 mEq/L 3.5-5.1 Below low normal Istat Potassiu m NORM ([facility]) istat sodium 139 mEq/L 136-145 Istat Sodium NORM (No [facility]) istat Ca++ 4.5 mg/dL 4.5-5.3 Istat Ca++ NORM ([facility]) istat chloride 101 mEq/L 98-109 Istat Chloride NORM ([facility]) istat CO2 28.0 mm/L 23.0-27.0 Above high normal Istat CO2 NORM ([facility]) istat BUN 10 mg/dL 8-26 Istat BUN [place] ([facility]) istat creatinine 0.9 mg/dL 0.6-1.3 Istat Creatinine AT [facility] ([facility]) ID Date Data Source [id number] 09/13/2020 04:54:00 PM EST [place] ([facility]) Name Value Range Interpretation Code Description Data Jania rce(s) Supporting Document(s) istat HCT 49.0 % 38.0-51.0 Istat HCT NORM ([facility]) istat sodium 139 mEq/L 136-145 Istat Sodium NORM (No [facility]) istat glucose 93 mg/dL 70-105 Istat Glucose NORM ( [facility]) istat Ca++ 4.5 mg/dL 4.5-5.3 Istat Ca++ NORM ([facility]) istat chloride 101 mEq/L 98-109 Istat Chloride NORM ([facility]) istat potassium 3.1 mEq/L 3.5-5.1 Below low normal Istat Potassiu m NORM ([facility]) istat BUN 10 mg/dL 8-26 Istat BUN NORM ([facility]) istat CO2 28.0 mm/L 23.0-27.0 Above high normal Istat CO2 NORM ([facility]) istat creatinine 0.9 mg/dL 0.6-1.3 Istat Creatinine AT [facility]) ID Date Data Source [id number] 09/13/2020 04:54:00 PM EST NORM ([facility]) Name Value Range Interpretation Code Description Data Jania rce(s) Supporting Document(s) istat HCT 49.0 % 38.0-51.0 Istat HCT NORM ([facility]) istat glucose 93 mg/dL 70-105 Istat Glucose [place] ( [facility]) istat sodium 139 mEq/L 136-145 Istat Sodium NORM ([facility]) istat potassium 3.1 mEq/L 3.5-5.1 Below low normal Istat Potassiu m [place] ([facility]) istat chloride 101 mEq/L 98-109 Istat Chloride [place] ([facility]) istat CO2 28.0 mm/L 23.0-27.0 Above high normal Istat CO2 [place] ([facility]) istat Ca++ 4.5 mg/dL 4.5-5.3 Istat Ca++ [place] ([facility]) istat BUN 10 mg/dL 8-26 Istat BUN [place] ([facility]) istat creatinine 0.9 mg/dL 0.6-1.3 Istat Creatinine AT [facility]) ID Date Data Source [id number] 09/13/2020 04:54:00 PM EST [place] ([facility]) Name Value Range Interpretation Code Description Data Jania rce(s) Supporting Document(s) istat HCT 49.0 % 38.0-51.0 Istat HCT NORM ([facility]) istat glucose 93 mg/dL 70-105 Istat Glucose NORM ( [facility]) istat potassium 3.1 mEq/L 3.5-5.1 Below low normal Istat Potassiu m NORM ([facility]) istat sodium 139 mEq/L 136-145 Istat Sodium NORM (No [facility]) istat chloride 101 mEq/L 98-109 Istat Chloride NORM ([facility]) istat Ca++ 4.5 mg/dL 4.5-5.3 Istat Ca++ NORM ([facility]) istat CO2 28.0 mm/L 23.0-27.0 Above high normal Istat CO2 NORM ([facility]) istat BUN 10 mg/dL 8-26 Istat BUN [place] ([facility]) istat creatinine 0.9 mg/dL 0.6-1.3 Istat Creatinine AT [facility]) ID Date Data Source [id number] 09/13/2020 04:54:00 PM EST NORM ([facility]) Name Value Range Interpretation Code Description Data Jania rce(s) Supporting Document(s) istat HCT 49.0 % 38.0-51.0 Istat HCT [place] ([facility]) istat glucose 93 mg/dL 70-105 Istat Glucose NORM ( [facility]) istat sodium 139 mEq/L 136-145 Istat Sodium NORM ([facility]) istat chloride 101 mEq/L 98-109 Istat Chloride NORM ([facility]) istat potassium 3.1 mEq/L 3.5-5.1 Below low normal Istat Potassiu m NORM ([facility]) istat Ca++ 4.5 mg/dL 4.5-5.3 Istat Ca++ NORM ([facility]) istat CO2 28.0 mm/L 23.0-27.0 Above high normal Istat CO2 NORM ([facility]) istat BUN 10 mg/dL 8-26 Istat BUN NORM ([facility]) istat creatinine 0.9 mg/dL 0.6-1.3 Istat Creatinine AT [facility] ([facility]) ID Date Data Source [id number] 09/13/2020 04:54:00 PM EST NORM ([facility]) Name Value Range Interpretation Code Description Data Jania rce(s) Supporting Document(s) istat HCT 49.0 % 38.0-51.0 Istat HCT NORM ([facility]) istat glucose 93 mg/dL 70-105 Istat Glucose [place] ( [facility]) istat Ca++ 4.5 mg/dL 4.5-5.3 Istat Ca++ [place] ([facility]) istat potassium 3.1 mEq/L 3.5-5.1 Below low normal Istat Potassiu m [place] ([facility]) istat sodium 139 mEq/L 136-145 Istat Sodium NORM ([facility]) istat CO2 28.0 mm/L 23.0-27.0 Above high normal Istat CO2 [place] ([facility]) istat chloride 101 mEq/L 98-109 Istat Chloride [place] ([facility]) istat creatinine 0.9 mg/dL 0.6-1.3 Istat Creatinine AT [facility] ([facility]) istat BUN 10 mg/dL 8-26 Istat BUN [place] ([facility]) ID Date Data Source [id number] 09/13/2020 04:54:00 PM EST NORM ([facility]) Name Value Range Interpretation Code Description Data Jania rce(s) Supporting Document(s) istat HCT 49.0 % 38.0-51.0 Istat HCT NORM ([facility]) istat glucose 93 mg/dL 70-105 Istat Glucose NORM ( [facility]) istat potassium 3.1 mEq/L 3.5-5.1 Below low normal Istat Potassiu m NORM ([facility]) istat Ca++ 4.5 mg/dL 4.5-5.3 Istat Ca++ NORM ([facility]) istat sodium 139 mEq/L 136-145 Istat Sodium NORM (No [facility]) istat CO2 28.0 mm/L 23.0-27.0 Above high normal Istat CO2 NORM ([facility]) istat BUN 10 mg/dL 8-26 Istat BUN NORM ([facility]) istat chloride 101 mEq/L 98-109 Istat Chloride NORM ([facility]) istat creatinine 0.9 mg/dL 0.6-1.3 Istat Creatinine AT [facility]) ID Date Data Source [id number] 09/13/2020 04:54:00 PM EST [place] ([facility]) Name Value Range Interpretation Code Description Data Jania rce(s) Supporting Document(s) istat HCT 49.0 % 38.0-51.0 Istat HCT NORM ([facility]) istat glucose 93 mg/dL 70-105 Istat Glucose NORM ( [facility]) istat Ca++ 4.5 mg/dL 4.5-5.3 Istat Ca++ [place] ([facility]) istat potassium 3.1 mEq/L 3.5-5.1 Below low normal Istat Potassiu m NORM ([facility]) istat sodium 139 mEq/L 136-145 Istat Sodium NORM ([facility]) istat BUN 10 mg/dL 8-26 Istat BUN NORM ([facility]) istat CO2 28.0 mm/L 23.0-27.0 Above high normal Istat CO2 NORM ([facility]) istat chloride 101 mEq/L 98-109 Istat Chloride NORM ([facility]) istat creatinine 0.9 mg/dL 0.6-1.3 Istat Creatinine AT [facility] ([facility]) ID Date Data Source [id number] 09/13/2020 04:51:00 PM EST NORM ([facility]) Name Value Range Interpretation Code Description Data Jania rce(s) Supporting Document(s) white blood count 7.6 10 4.0-10.0 White Blood Count NORM ([facility]) red blood count 5.44 10 4.30-6.10 Red Blood Count ATHE NA ([facility]) hematocrit 47.7 % 42.0-52.0 Hematocrit NORM ([facility]) hemoglobin 15.8 g/dL 13.5-17.5 Hemoglobin NORM ([facility]) mean corpuscular volume 87.7 fL 80.0-96.0 Mean Corpusc ular Volume NORM ([facility]) mean corpuscular hemoglobin 29.0 pg 27.0-33.0 Mean Cor puscular Hemoglobin NORM ([facility]) mean corpuscular HGB conc 33.1 g/dL 32.0-36.5 Mean Corpu scular HGB Conc NORM ([facility]) platelet count, automated 284 10 150-450 Platelet C ount, Automated NORM ([facility]) red cell distribution width 11.9 % 11.5-14.5 Red Cell Distribution Width NORM ([facility]) nucleated red blood cell % 0.0 % 0-0 Nucleated Red Blood Cell % NORM ([facility]) ID Date Data Source [id number] 09/13/2020 04:51:00 PM EST NORM ([facility]) Name Value Range Interpretation Code Description Data Jania rce(s) Supporting Document(s) white blood count 7.6 10 4.0-10.0 White Blood Count NORM ([facility]) red blood count 5.44 10 4.30-6.10 Red Blood Count ATHE NA ([facility]) hematocrit 47.7 % 42.0-52.0 Hematocrit NORM ([facility]) hemoglobin 15.8 g/dL 13.5-17.5 Hemoglobin NORM ([facility]) mean corpuscular volume 87.7 fL 80.0-96.0 Mean Corpusc ular Volume NORM ([facility]) mean corpuscular hemoglobin 29.0 pg 27.0-33.0 Mean Cor puscular Hemoglobin NORM ([facility]) mean corpuscular HGB conc 33.1 g/dL 32.0-36.5 Mean Corpu scular HGB Conc NORM ([facility]) red cell distribution width 11.9 % 11.5-14.5 Red Cell Distribution Width NORM ([facility]) platelet count, automated 284 10 150-450 Platelet C ount, Automated NORM ([facility]) nucleated red blood cell % 0.0 % 0-0 Nucleated Red Blood Cell % NORM ([facility]) ID Date Data Source [id number] 09/13/2020 04:51:00 PM EST NORM ([facility]) Name Value Range Interpretation Code Description Data Jania rce(s) Supporting Document(s) white blood count 7.6 10 4.0-10.0 White Blood Count NORM ([facility]) red blood count 5.44 10 4.30-6.10 Red Blood Count ATHE NA ([facility]) hematocrit 47.7 % 42.0-52.0 Hematocrit NORM ([facility]) hemoglobin 15.8 g/dL 13.5-17.5 Hemoglobin NORM ([facility]) mean corpuscular volume 87.7 fL 80.0-96.0 Mean Corpusc ular Volume NORM ([facility]) mean corpuscular hemoglobin 29.0 pg 27.0-33.0 Mean Cor puscular Hemoglobin NORM ([facility]) red cell distribution width 11.9 % 11.5-14.5 Red Cell Distribution Width NORM ([facility]) mean corpuscular HGB conc 33.1 g/dL 32.0-36.5 Mean Corpu scular HGB Conc NORM ([facility]) nucleated red blood cell % 0.0 % 0-0 Nucleated Red Blood Cell % NORM ([facility]) platelet count, automated 284 10 150-450 Platelet C ount, Automated NORM ([facility]) ID Date Data Source [id number] 09/13/2020 04:51:00 PM EST NORM ([facility]) Name Value Range Interpretation Code Description Data Jania rce(s) Supporting Document(s) white blood count 7.6 10 4.0-10.0 White Blood Count NORM ([facility]) hematocrit 47.7 % 42.0-52.0 Hematocrit NORM ([facility]) hemoglobin 15.8 g/dL 13.5-17.5 Hemoglobin NORM ([facility]) red blood count 5.44 10 4.30-6.10 Red Blood Count ATHE ([facility]) mean corpuscular volume 87.7 fL 80.0-96.0 Mean Corpusc ular Volume NORM ([facility]) mean corpuscular hemoglobin 29.0 pg 27.0-33.0 Mean Cor puscular Hemoglobin NORM ([facility]) platelet count, automated 284 10 150-450 Platelet C ount, Automated NORM ([facility]) mean corpuscular HGB conc 33.1 g/dL 32.0-36.5 Mean Corpu scular HGB Conc NORM ([facility]) red cell distribution width 11.9 % 11.5-14.5 Red Cell Distribution Width NORM ([facility]) nucleated red blood cell % 0.0 % 0-0 Nucleated Red Blood Cell % NORM ([facility]) ID Date Data Source [id number] 09/13/2020 04:51:00 PM EST NORM ([facility]) Name Value Range Interpretation Code Description Data Jania rce(s) Supporting Document(s) white blood count 7.6 10 4.0-10.0 White Blood Count NORM ([facility]) red blood count 5.44 10 4.30-6.10 Red Blood Count ATHE NA ([facility]) hemoglobin 15.8 g/dL 13.5-17.5 Hemoglobin NORM ([facility]) mean corpuscular hemoglobin 29.0 pg 27.0-33.0 Mean Cor puscular Hemoglobin NORM ([facility]) mean corpuscular volume 87.7 fL 80.0-96.0 Mean Corpusc ular Volume NORM ([facility]) hematocrit 47.7 % 42.0-52.0 Hematocrit NORM ([facility]) mean corpuscular HGB conc 33.1 g/dL 32.0-36.5 Mean Corpu scular HGB Conc NORM ([facility]) red cell distribution width 11.9 % 11.5-14.5 Red Cell Distribution Width NORM ([facility]) platelet count, automated 284 10 150-450 Platelet C ount, Automated NORM ([facility]) nucleated red blood cell % 0.0 % 0-0 Nucleated Red Blood Cell % NORM ([facility]) ID Date Data Source [id number] 09/13/2020 04:51:00 PM EST NORM ([facility]) Name Value Range Interpretation Code Description Data Jania rce(s) Supporting Document(s) white blood count 7.6 10 4.0-10.0 White Blood Count NORM ([facility]) red blood count 5.44 10 4.30-6.10 Red Blood Count ATHE NA ([facility]) hematocrit 47.7 % 42.0-52.0 Hematocrit NORM ([facility]) mean corpuscular volume 87.7 fL 80.0-96.0 Mean Corpusc ular Volume NORM ([facility]) hemoglobin 15.8 g/dL 13.5-17.5 Hemoglobin NORM ([facility]) red cell distribution width 11.9 % 11.5-14.5 Red Cell Distribution Width NORM ([facility]) mean corpuscular hemoglobin 29.0 pg 27.0-33.0 Mean Cor puscular Hemoglobin NORM ([facility]) mean corpuscular HGB conc 33.1 g/dL 32.0-36.5 Mean Corpu scular HGB Conc NORM ([facility]) nucleated red blood cell % 0.0 % 0-0 Nucleated Red Blood Cell % NORM ([facility]) platelet count, automated 284 10 150-450 Platelet C ount, Automated NORM ([facility]) ID Date Data Source [id number] 09/13/2020 04:51:00 PM EST NORM ([facility]) Name Value Range Interpretation Code Description Data Jania rce(s) Supporting Document(s) white blood count 7.6 10 4.0-10.0 White Blood Count NORM ([facility]) hemoglobin 15.8 g/dL 13.5-17.5 Hemoglobin NORM ([facility]) red blood count 5.44 10 4.30-6.10 Red Blood Count ATHE NA ([facility]) mean corpuscular volume 87.7 fL 80.0-96.0 Mean Corpusc ular Volume NORM ([facility]) mean corpuscular hemoglobin 29.0 pg 27.0-33.0 Mean Cor puscular Hemoglobin NORM ([facility]) hematocrit 47.7 % 42.0-52.0 Hematocrit NORM ([facility]) red cell distribution width 11.9 % 11.5-14.5 Red Cell Distribution Width NORM ([facility]) mean corpuscular HGB conc 33.1 g/dL 32.0-36.5 Mean Corpu scular HGB Conc NORM ([facility]) nucleated red blood cell % 0.0 % 0-0 Nucleated Red Blood Cell % NORM ([facility]) platelet count, automated 284 10 150-450 Platelet C ount, Automated NORM ([facility]) ID Date Data Source [id number] 09/13/2020 04:51:00 PM EST NORM ([facility]) Name Value Range Interpretation Code Description Data Jania rce(s) Supporting Document(s) white blood count 7.6 10 4.0-10.0 White Blood Count NORM ([facility]) red blood count 5.44 10 4.30-6.10 Red Blood Count ATHE NA ([facility]) mean corpuscular volume 87.7 fL 80.0-96.0 Mean Corpusc ular Volume NORM ([facility]) hematocrit 47.7 % 42.0-52.0 Hematocrit NORM ([facility]) hemoglobin 15.8 g/dL 13.5-17.5 Hemoglobin NORM ([facility]) mean corpuscular hemoglobin 29.0 pg 27.0-33.0 Mean Cor puscular Hemoglobin NORM ([facility]) red cell distribution width 11.9 % 11.5-14.5 Red Cell Distribution Width NORM ([facility]) mean corpuscular HGB conc 33.1 g/dL 32.0-36.5 Mean Corpu scular HGB Conc NORM ([facility]) platelet count, automated 284 10 150-450 Platelet C ount, Automated NORM ([facility]) nucleated red blood cell % 0.0 % 0-0 Nucleated Red Blood Cell % NORM ([facility]) ID Date Data Source [id number] 09/13/2020 04:51:00 PM EST NORM ([facility]) Name Value Range Interpretation Code Description Data Jania rce(s) Supporting Document(s) white blood count 7.6 10 4.0-10.0 White Blood Count NORM ([facility]) hematocrit 47.7 % 42.0-52.0 Hematocrit NORM ([facility]) red blood count 5.44 10 4.30-6.10 Red Blood Count ATHE NA ([facility]) hemoglobin 15.8 g/dL 13.5-17.5 Hemoglobin NORM ([facility]) mean corpuscular volume 87.7 fL 80.0-96.0 Mean Corpusc ular Volume NORM ([facility]) mean corpuscular hemoglobin 29.0 pg 27.0-33.0 Mean Cor puscular Hemoglobin NORM ([facility]) red cell distribution width 11.9 % 11.5-14.5 Red Cell Distribution Width NORM ([facility]) mean corpuscular HGB conc 33.1 g/dL 32.0-36.5 Mean Corpu scular HGB Conc NORM ([facility]) platelet count, automated 284 10 150-450 Platelet C ount, Automated NORM ([facility]) nucleated red blood cell % 0.0 % 0-0 Nucleated Red Blood Cell % NORM ([facility]) ID Date Data Source [id number] 09/13/2020 04:51:00 PM EST NORM ([facility]) Name Value Range Interpretation Code Description Data Jania rce(s) Supporting Document(s) white blood count 7.6 10 4.0-10.0 White Blood Count NORM ([facility]) red blood count 5.44 10 4.30-6.10 Red Blood Count ATHE NA ([facility]) hemoglobin 15.8 g/dL 13.5-17.5 Hemoglobin NORM ([facility]) mean corpuscular volume 87.7 fL 80.0-96.0 Mean Corpusc ular Volume NORM ([facility]) mean corpuscular hemoglobin 29.0 pg 27.0-33.0 Mean Cor puscular Hemoglobin NORM ([facility]) hematocrit 47.7 % 42.0-52.0 Hematocrit NORM ([facility]) mean corpuscular HGB conc 33.1 g/dL 32.0-36.5 Mean Corpu scular HGB Conc NORM ([facility]) platelet count, automated 284 10 150-450 Platelet C ount, Automated NORM ([facility]) red cell distribution width 11.9 % 11.5-14.5 Red Cell Distribution Width NORM ([facility]) nucleated red blood cell % 0.0 % 0-0 Nucleated Red Blood Cell % NORM ([facility]) ID Date Data Source [id number] 09/13/2020 04:51:00 PM EST NORM ([facility]) Name Value Range Interpretation Code Description Data Jania rce(s) Supporting Document(s) red blood count 5.44 10 4.30-6.10 Red Blood Count ATHE NA ([facility]) white blood count 7.6 10 4.0-10.0 White Blood Count NORM ([facility]) mean corpuscular volume 87.7 fL 80.0-96.0 Mean Corpusc ular Volume NORM ([facility]) hematocrit 47.7 % 42.0-52.0 Hematocrit NORM ([facility]) hemoglobin 15.8 g/dL 13.5-17.5 Hemoglobin NORM ([facility]) mean corpuscular HGB conc 33.1 g/dL 32.0-36.5 Mean Corpu scular HGB Conc NORM ([facility]) mean corpuscular hemoglobin 29.0 pg 27.0-33.0 Mean Cor puscular Hemoglobin NOMR ([facility]) red cell distribution width 11.9 % 11.5-14.5 Red Cell Distribution Width NORM ([facility]) nucleated red blood cell % 0.0 % 0-0 Nucleated Red Blood Cell % NORM ([facility]) platelet count, automated 284 10 150-450 Platelet C ount, Automated NORM ([facility]) ID Date Data Source [id number] 09/06/2020 08:48:00 AM EST NORM ([facility]) Name Value Range Interpretation Code Description Data Jania rce(s) Supporting Document(s) total 25(oh) vitamin D 15.0 NG/mL 30.0-100.0 Below low normal T otal 25(Oh) Vitamin D NORM ([facility]) ID Date Data Source [id number] 09/06/2020 08:48:00 AM EST NORM ([facility]) Name Value Range Interpretation Code Description Data Jania rce(s) Supporting Document(s) free T4 0.78 NG/dL 0.76-1.46 Free T4 NORM ([facility]) thyroid stimulating hormone 9.020 uIU/mL 0.358-3.740 Above high no rmal Thyroid Stimulating Hormone NORM ([facility]) ID Date Data Source [id number] 09/06/2020 08:48:00 AM EST NORM ([facility]) Name Value Range Interpretation Code Description Data Jania rce(s) Supporting Document(s) triglycerides level 145 mg/dL <150 Triglycerides Le matthew NORM ([facility]) HDL cholesterol 44 mg/dL >40 [facility]) non-HDL-C 220 mg/dL Non-hdl-c NORM ([facility]) cholesterol level 264 mg/dL <200 Above high normal Cholesterol Level NORM ([facility]) cholesterol risk ratio <5 Above high normal Choles terol Risk Ratio NORM ([facility]) Cholesterol in LDL [Mass/volume] in Serum or Plasma 191 mg/dL <100 Above high normal LDL Cholesterol NORM ([facility]) ID Date Data Source [id number] 09/06/2020 08:48:00 AM EST [place] ([facility]) Name Value Range Interpretation Code Description Data Jania rce(s) Supporting Document(s) glucose, fasting 82 mg/dL 70-100 Glucose, Fasting AT [facility] ([facility]) creatinine for GFR 1.07 mg/dL 0.70-1.30 Creatinine for GF R NORM ([facility]) sodium level 138 mEq/L 136-145 Sodium Level NORM ([facility]) glomerular filtration rate > 60.0 >60 Glomerula r Filtration Rate NORM ([facility]) blood urea nitrogen 11 mg/dL 7-18 Blood Urea Nitro gen NORM ([facility]) chloride level 101 mEq/L 98-107 Chloride Level NORM ([facility]) anion gap 7 mEq/L 8-16 Below low normal Anion Gap NORM ( [facility]) carbon dioxide level 30 mEq/L 21-32 Carbon Dioxide Level NORM ([facility]) potassium serum 4.5 mEq/L 3.5-5.1 Potassium Serum ATHE NA ([facility]) ALT/SGPT 38 U/L 12-78 ALT/SGPT NORM ([facility]) AST/SGOT 20 U/L 7-37 AST/SGOT NORM ([facility]) alkaline phosphatase 79 U/L 45-117 Alkaline Phosph atase NORM ([facility]) calcium level 9.2 mg/dL 8.5-10.1 Calcium Level NORM ( [facility]) albumin 4.7 gm/dL 3.2-5.2 Albumin NORM ([facility]) bilirubin,total 0.7 mg/dL 0.2-1.0 Bilirubin,total ATHE ([facility]) albumin/globulin ratio Albumin/globu veda Ratio NORM ([facility]) total protein 8.0 gm/dL 6.4-8.2 Total Protein NORM ( [facility]) ID Date Data Source [id number] 09/06/2020 08:48:00 AM EST NORM ([facility]) Name Value Range Interpretation Code Description Data Jania rce(s) Supporting Document(s) white blood count 5.8 10 4.0-10.0 White Blood Count NORM ([facility]) hemoglobin 16.3 g/dL 13.5-17.5 Hemoglobin NORM ([facility]) red blood count 5.59 10 4.30-6.10 Red Blood Count ATHE ([facility]) mean corpuscular volume 89.1 fL 80.0-96.0 Mean Corpusc ular Volume NORM ([facility]) hematocrit 49.8 % 42.0-52.0 Hematocrit NORM ([facility]) mean corpuscular hemoglobin 29.2 pg 27.0-33.0 Mean Cor puscular Hemoglobin NORM ([facility]) mean corpuscular HGB conc 32.7 g/dL 32.0-36.5 Mean Corpu scular HGB Conc NORM ([facility]) neutrophils % 60.5 % 36.0-66.0 Neutrophils % NORM ( [facility]) red cell distribution width 11.9 % 11.5-14.5 Red Cell Distribution Width NORM ([facility]) platelet count, automated 269 10 150-450 Platelet C ount, Automated NORM ([facility]) mono % 8.8 % 0.0-5.0 Above high normal [place] % NORM ([facility]) eos % 2.4 % 0.0-3.0 Eos % NORM ([facility]) lymph % 27.0 % 24.0-44.0 Lymph % NORM ([facility]) nucleated red blood cell % 0.0 % 0-0 Nucleated Red Blood Cell % [place] ([facility]) immature granulocyte % 0.3 % 0-3.0 Immature Gran ulocyte % NORM ([facility]) neutrophils # 3.5 10 1.5-8.5 Neutrophils # NORM ( [facility]) baso % 1.0 % 0.0-1.0 Baso % NORM ([facility]) lymph # 1.6 10 1.5-5.0 Lymph # NORM ([facility]) eos # 0.1 10 0.0-0.5 Eos # NORM ([facility]) mono # 0.5 10 0.0-0.8 [place] # NORM ([facility]) baso # 0.1 10 0.0-0.2 Baso # NORM ([facility]) ID Date Data Source [id number] 09/06/2020 08:48:00 AM EST NORM ([facility]) Name Value Range Interpretation Code Description Data Jania rce(s) Supporting Document(s) total 25(oh) vitamin D 15.0 NG/mL 30.0-100.0 Below low normal T otal 25(Oh) Vitamin D NORM ([facility]) ID Date Data Source [id number] 09/06/2020 08:48:00 AM EST NORM ([facility]) Name Value Range Interpretation Code Description Data Jania rce(s) Supporting Document(s) free T4 0.78 NG/dL 0.76-1.46 Free T4 NORM ([facility]) thyroid stimulating hormone 9.020 uIU/mL 0.358-3.740 Above high no rmal Thyroid Stimulating Hormone NORM ([facility]) ID Date Data Source [id number] 09/06/2020 08:48:00 AM EST NORM ([facility]) Name Value Range Interpretation Code Description Data Jania rce(s) Supporting Document(s) cholesterol level 264 mg/dL <200 Above high normal Cholesterol Level NORM ([facility]) triglycerides level 145 mg/dL <150 Triglycerides Le matthew NORM ([facility]) Cholesterol in LDL [Mass/volume] in Serum or Plasma 191 mg/dL <100 Above high normal LDL Cholesterol NORM ([facility]) non-HDL-C 220 mg/dL Non-hdl-c NORM ([facility]) HDL cholesterol 44 mg/dL >40 HDL Cholesterol ATHE NA ([facility]) cholesterol risk ratio <5 Above high normal Choles terol Risk Ratio [place] ([facility]) ID Date Data Source [id number] 09/06/2020 08:48:00 AM EST NORM ([facility]) Name Value Range Interpretation Code Description Data Jania rce(s) Supporting Document(s) glucose, fasting 82 mg/dL 70-100 Glucose, Fasting AT [facility] ([facility]) blood urea nitrogen 11 mg/dL 7-18 Blood Urea Nitro gen NORM ([facility]) glomerular filtration rate > 60.0 >60 Glomerula r Filtration Rate NORM ([facility]) sodium level 138 mEq/L 136-145 Sodium Level NORM ([facility]) creatinine for GFR 1.07 mg/dL 0.70-1.30 Creatinine for GF R NORM ([facility]) carbon dioxide level 30 mEq/L 21-32 Carbon Dioxide Level [place] ([facility]) chloride level 101 mEq/L 98-107 Chloride Level NORM ([facility]) potassium serum 4.5 mEq/L 3.5-5.1 Potassium Serum ATHE NA ([facility]) AST/SGOT 20 U/L 7-37 AST/SGOT NORM ([facility]) anion gap 7 mEq/L 8-16 Below low normal Anion Gap NORM ( [facility]) ALT/SGPT 38 U/L 12-78 ALT/SGPT NORM ([facility]) calcium level 9.2 mg/dL 8.5-10.1 Calcium Level NORM ( [facility]) alkaline phosphatase 79 U/L 45-117 Alkaline Phosph atase NORM ([facility]) total protein 8.0 gm/dL 6.4-8.2 Total Protein NORM ( [facility]) albumin 4.7 gm/dL 3.2-5.2 Albumin NORM ([facility]) bilirubin,total 0.7 mg/dL 0.2-1.0 Bilirubin,total ATHE NA ([facility]) albumin/globulin ratio Albumin/globu veda Ratio NORM ([facility]) ID Date Data Source [id number] 09/06/2020 08:48:00 AM EST NORM ([facility]) Name Value Range Interpretation Code Description Data Jania rce(s) Supporting Document(s) white blood count 5.8 10 4.0-10.0 White Blood Count NORM ([facility]) red blood count 5.59 10 4.30-6.10 Red Blood Count ATHE NA ([facility]) hematocrit 49.8 % 42.0-52.0 Hematocrit NORM ([facility]) hemoglobin 16.3 g/dL 13.5-17.5 Hemoglobin NORM ([facility]) mean corpuscular volume 89.1 fL 80.0-96.0 Mean Corpusc ular Volume NORM ([facility]) mean corpuscular hemoglobin 29.2 pg 27.0-33.0 Mean Cor puscular Hemoglobin NORM ([facility]) mean corpuscular HGB conc 32.7 g/dL 32.0-36.5 Mean Corpu scular HGB Conc NORM ([facility]) platelet count, automated 269 10 150-450 Platelet C ount, Automated NORM ([facility]) red cell distribution width 11.9 % 11.5-14.5 Red Cell Distribution Width NORM ([facility]) mono % 8.8 % 0.0-5.0 Above high normal [place] % NORM ([facility]) neutrophils % 60.5 % 36.0-66.0 Neutrophils % NORM ( [facility]) eos % 2.4 % 0.0-3.0 Eos % [place] ([facility]) lymph % 27.0 % 24.0-44.0 Lymph % [place] ([facility]) baso % 1.0 % 0.0-1.0 Baso % [place] ([facility]) immature granulocyte % 0.3 % 0-3.0 Immature Gran ulocyte % NORM ([facility]) neutrophils # 3.5 10 1.5-8.5 Neutrophils # NORM ( [facility]) lymph # 1.6 10 1.5-5.0 Lymph # [place] ([facility]) nucleated red blood cell % 0.0 % 0-0 Nucleated Red Blood Cell % [place] ([facility]) mono # 0.5 10 0.0-0.8 [place] # NORM ([facility]) baso # 0.1 10 0.0-0.2 Baso # NORM ([facility]) eos # 0.1 10 0.0-0.5 Eos # NORM ([facility]) ID Date Data Source [id number] 09/06/2020 08:48:00 AM EST NORM ([facility]) Name Value Range Interpretation Code Description Data Jania rce(s) Supporting Document(s) total 25(oh) vitamin D 15.0 NG/mL 30.0-100.0 Below low normal T otal 25(Oh) Vitamin D [place] ([facility]) ID Date Data Source [id number] 09/06/2020 08:48:00 AM EST NORM ([facility]) Name Value Range Interpretation Code Description Data Jania rce(s) Supporting Document(s) thyroid stimulating hormone 9.020 uIU/mL 0.358-3.740 Above high no rmal Thyroid Stimulating Hormone NORM ([facility]) free T4 0.78 NG/dL 0.76-1.46 Free T4 NORM ([facility]) ID Date Data Source [id number] 09/06/2020 08:48:00 AM EST [place] ([facility]) Name Value Range Interpretation Code Description Data Jania rce(s) Supporting Document(s) triglycerides level 145 mg/dL <150 Triglycerides Le matthew NORM ([facility]) cholesterol level 264 mg/dL <200 Above high normal Cholesterol Level NORM ([facility]) cholesterol risk ratio <5 Above high normal Choles terol Risk Ratio NORM ([facility]) non-HDL-C 220 mg/dL Non-hdl-c NORM ([facility]) Cholesterol in LDL [Mass/volume] in Serum or Plasma 191 mg/dL <100 Above high normal LDL Cholesterol NORM ([facility]) HDL cholesterol 44 mg/dL >40 HDL Cholesterol ATHE NA ([facility]) ID Date Data Source [id number] 09/06/2020 08:48:00 AM EST [place] ([facility]) Name Value Range Interpretation Code Description Data Jania rce(s) Supporting Document(s) glucose, fasting 82 mg/dL 70-100 Glucose, Fasting AT [facility] ([facility]) creatinine for GFR 1.07 mg/dL 0.70-1.30 Creatinine for GF R NORM ([facility]) blood urea nitrogen 11 mg/dL 7-18 Blood Urea Nitro gen NORM ([facility]) glomerular filtration rate > 60.0 >60 Glomerula r Filtration Rate NORM ([facility]) potassium serum 4.5 mEq/L 3.5-5.1 Potassium Serum ATHE NA ([facility]) sodium level 138 mEq/L 136-145 Sodium Level NORM ([facility]) anion gap 7 mEq/L 8-16 Below low normal Anion Gap NORM ( [facility]) chloride level 101 mEq/L 98-107 Chloride Level NORM ([facility]) carbon dioxide level 30 mEq/L 21-32 Carbon Dioxide Level NORM ([facility]) AST/SGOT 20 U/L 7-37 AST/SGOT NORM ([facility]) ALT/SGPT 38 U/L 12-78 ALT/SGPT NORM ([facility]) calcium level 9.2 mg/dL 8.5-10.1 Calcium Level NORM ( [facility]) albumin 4.7 gm/dL 3.2-5.2 Albumin NORM ([facility]) alkaline phosphatase 79 U/L 45-117 Alkaline Phosph atase NORM ([facility]) total protein 8.0 gm/dL 6.4-8.2 Total Protein NORM ( [facility]) bilirubin,total 0.7 mg/dL 0.2-1.0 Bilirubin,total ATHE NA ([facility]) albumin/globulin ratio Albumin/globu veda Ratio NORM ([facility]) ID Date Data Source [id number] 09/06/2020 08:48:00 AM EST NORM ([facility]) Name Value Range Interpretation Code Description Data Jania rce(s) Supporting Document(s) white blood count 5.8 10 4.0-10.0 White Blood Count NORM ([facility]) red blood count 5.59 10 4.30-6.10 Red Blood Count ATHE ([facility]) mean corpuscular volume 89.1 fL 80.0-96.0 Mean Corpusc ular Volume NORM ([facility]) hematocrit 49.8 % 42.0-52.0 Hematocrit NORM ([facility]) hemoglobin 16.3 g/dL 13.5-17.5 Hemoglobin NORM ([facility]) mean corpuscular hemoglobin 29.2 pg 27.0-33.0 Mean Cor puscular Hemoglobin NORM ([facility]) mean corpuscular HGB conc 32.7 g/dL 32.0-36.5 Mean Corpu scular HGB Conc NORM ([facility]) red cell distribution width 11.9 % 11.5-14.5 Red Cell Distribution Width NORM ([facility]) lymph % 27.0 % 24.0-44.0 Lymph % [place] ([facility]) platelet count, automated 269 10 150-450 Platelet C ount, Automated NORM ([facility]) mono % 8.8 % 0.0-5.0 Above high normal [place] % [place] ([facility]) neutrophils % 60.5 % 36.0-66.0 Neutrophils % [place] ( [facility]) eos % 2.4 % 0.0-3.0 Eos % NORM ([facility]) baso % 1.0 % 0.0-1.0 Baso % [place] ([facility]) nucleated red blood cell % 0.0 % 0-0 Nucleated Red Blood Cell % [place] ([facility]) neutrophils # 3.5 10 1.5-8.5 Neutrophils # [place] ( [facility]) immature granulocyte % 0.3 % 0-3.0 Immature Gran ulocyte % NORM ([facility]) lymph # 1.6 10 1.5-5.0 Lymph # NORM ([facility]) mono # 0.5 10 0.0-0.8 [place] # NORM ([facility]) baso # 0.1 10 0.0-0.2 Baso # NORM ([facility]) eos # 0.1 10 0.0-0.5 Eos # [place] ([facility]) ID Date Data Source [id number] 09/06/2020 08:48:00 AM EST [place] ([facility]) Name Value Range Interpretation Code Description Data Jania rce(s) Supporting Document(s) total 25(oh) vitamin D 15.0 NG/mL 30.0-100.0 Below low normal T otal 25(Oh) Vitamin D NORM ([facility]) ID Date Data Source [id number] 09/06/2020 08:48:00 AM EST NORM ([facility]) Name Value Range Interpretation Code Description Data Jania rce(s) Supporting Document(s) thyroid stimulating hormone 9.020 uIU/mL 0.358-3.740 Above high no rmal Thyroid Stimulating Hormone NORM ([facility]) free T4 0.78 NG/dL 0.76-1.46 Free T4 NORM ([facility]) ID Date Data Source [id number] 09/06/2020 08:48:00 AM EST NORM ([facility]) Name Value Range Interpretation Code Description Data Jania rce(s) Supporting Document(s) triglycerides level 145 mg/dL <150 Triglycerides Le matthew NORM ([facility]) cholesterol level 264 mg/dL <200 Above high normal Cholesterol Level NORM ([facility]) non-HDL-C 220 mg/dL Non-hdl-c NORM ([facility]) Cholesterol in LDL [Mass/volume] in Serum or Plasma 191 mg/dL <100 Above high normal LDL Cholesterol NORM ([facility]) cholesterol risk ratio <5 Above high normal Choles terol Risk Ratio NORM ([facility]) HDL cholesterol 44 mg/dL >40 HDL Cholesterol ATHE NA ([facility]) ID Date Data Source [id number] 09/06/2020 08:48:00 AM EST NORM ([facility]) Name Value Range Interpretation Code Description Data Jania rce(s) Supporting Document(s) glucose, fasting 82 mg/dL 70-100 Glucose, Fasting AT [facility] ([facility]) blood urea nitrogen 11 mg/dL 7-18 Blood Urea Nitro gen NORM ([facility]) creatinine for GFR 1.07 mg/dL 0.70-1.30 Creatinine for GF R NORM ([facility]) sodium level 138 mEq/L 136-145 Sodium Level NORM ([facility]) chloride level 101 mEq/L 98-107 Chloride Level NORM ([facility]) glomerular filtration rate > 60.0 >60 Glomerula r Filtration Rate NORM ([facility]) potassium serum 4.5 mEq/L 3.5-5.1 Potassium Serum ATHE ([facility]) AST/SGOT 20 U/L 7-37 AST/SGOT NORM ([facility]) anion gap 7 mEq/L 8-16 Below low normal Anion Gap NORM ( [facility]) calcium level 9.2 mg/dL 8.5-10.1 Calcium Level NORM ( [facility]) carbon dioxide level 30 mEq/L 21-32 Carbon Dioxide Level NORM ([facility]) alkaline phosphatase 79 U/L 45-117 Alkaline Phosph atase NORM ([facility]) bilirubin,total 0.7 mg/dL 0.2-1.0 Bilirubin,total ATHE ([facility]) total protein 8.0 gm/dL 6.4-8.2 Total Protein NORM ( [facility]) ALT/SGPT 38 U/L 12-78 ALT/SGPT NORM ([facility]) albumin/globulin ratio Albumin/globu veda Ratio NORM ([facility]) albumin 4.7 gm/dL 3.2-5.2 Albumin NORM ([facility]) ID Date Data Source [id number] 09/06/2020 08:48:00 AM EST NORM ([facility]) Name Value Range Interpretation Code Description Data Jania rce(s) Supporting Document(s) white blood count 5.8 10 4.0-10.0 White Blood Count NORM ([facility]) red blood count 5.59 10 4.30-6.10 Red Blood Count ATHE ([facility]) mean corpuscular volume 89.1 fL 80.0-96.0 Mean Corpusc ular Volume NORM ([facility]) hematocrit 49.8 % 42.0-52.0 Hematocrit NORM ([facility]) hemoglobin 16.3 g/dL 13.5-17.5 Hemoglobin NORM ([facility]) red cell distribution width 11.9 % 11.5-14.5 Red Cell Distribution Width NORM ([facility]) mean corpuscular HGB conc 32.7 g/dL 32.0-36.5 Mean Corpu scular HGB Conc NORM ([facility]) mean corpuscular hemoglobin 29.2 pg 27.0-33.0 Mean Cor puscular Hemoglobin NORM ([facility]) neutrophils % 60.5 % 36.0-66.0 Neutrophils % NORM ( [facility]) mono % 8.8 % 0.0-5.0 Above high normal [place] % NORM ([facility]) platelet count, automated 269 10 150-450 Platelet C ount, Automated NORM ([facility]) lymph % 27.0 % 24.0-44.0 Lymph % NORM ([facility]) immature granulocyte % 0.3 % 0-3.0 Immature Gran ulocyte % NORM ([facility]) baso % 1.0 % 0.0-1.0 Baso % NORM ([facility]) eos % 2.4 % 0.0-3.0 Eos % NORM ([facility]) neutrophils # 3.5 10 1.5-8.5 Neutrophils # NORM ( [facility]) mono # 0.5 10 0.0-0.8 [place] # NORM ([facility]) nucleated red blood cell % 0.0 % 0-0 Nucleated Red Blood Cell % NORM ([facility]) lymph # 1.6 10 1.5-5.0 Lymph # NORM ([facility]) baso # 0.1 10 0.0-0.2 Baso # NORM ([facility]) eos # 0.1 10 0.0-0.5 Eos # NORM ([facility]) ID Date Data Source [id number] 09/06/2020 08:48:00 AM EST NORM ([facility]) Name Value Range Interpretation Code Description Data Jania rce(s) Supporting Document(s) total 25(oh) vitamin D 15.0 NG/mL 30.0-100.0 Below low normal T otal 25(Oh) Vitamin D NORM ([facility]) ID Date Data Source [id number] 09/06/2020 08:48:00 AM EST NORM ([facility]) Name Value Range Interpretation Code Description Data Jania rce(s) Supporting Document(s) thyroid stimulating hormone 9.020 uIU/mL 0.358-3.740 Above high no rmal Thyroid Stimulating Hormone NORM ([facility]) free T4 0.78 NG/dL 0.76-1.46 Free T4 NORM ([facility]) ID Date Data Source [id number] 09/06/2020 08:48:00 AM EST NORM ([facility]) Name Value Range Interpretation Code Description Data Jania rce(s) Supporting Document(s) cholesterol level 264 mg/dL <200 Above high normal Cholesterol Level NORM ([facility]) triglycerides level 145 mg/dL <150 Triglycerides Le matthew NORM ([facility]) Cholesterol in LDL [Mass/volume] in Serum or Plasma 191 mg/dL <100 Above high normal LDL Cholesterol NORM ([facility]) HDL cholesterol 44 mg/dL >40 HDL Cholesterol ATHE NA ([facility]) non-HDL-C 220 mg/dL Non-hdl-c NORM ([facility]) cholesterol risk ratio <5 Above high normal Choles terol Risk Ratio NORM ([facility]) ID Date Data Source [id number] 09/06/2020 08:48:00 AM EST NORM ([facility]) Name Value Range Interpretation Code Description Data Jania rce(s) Supporting Document(s) blood urea nitrogen 11 mg/dL 7-18 Blood Urea Nitro gen NORM ([facility]) glucose, fasting 82 mg/dL 70-100 Glucose, Fasting AT JASWINDER ([facility]) creatinine for GFR 1.07 mg/dL 0.70-1.30 Creatinine for GF R NORM ([facility]) glomerular filtration rate > 60.0 >60 Glomerula r Filtration Rate NORM ([facility]) potassium serum 4.5 mEq/L 3.5-5.1 Potassium Serum ATHE NA ([facility]) sodium level 138 mEq/L 136-145 Sodium Level NORM ([facility]) chloride level 101 mEq/L 98-107 Chloride Level NORM ([facility]) carbon dioxide level 30 mEq/L 21-32 Carbon Dioxide Level NORM ([facility]) calcium level 9.2 mg/dL 8.5-10.1 Calcium Level NORM ( [facility]) anion gap 7 mEq/L 8-16 Below low normal Anion Gap NORM ( [facility]) AST/SGOT 20 U/L 7-37 AST/SGOT NORM ([facility]) total protein 8.0 gm/dL 6.4-8.2 Total Protein NORM ( [facility]) ALT/SGPT 38 U/L 12-78 ALT/SGPT NORM ([facility]) bilirubin,total 0.7 mg/dL 0.2-1.0 Bilirubin,total ATHE ([facility]) alkaline phosphatase 79 U/L 45-117 Alkaline Phosph atase NORM ([facility]) albumin 4.7 gm/dL 3.2-5.2 Albumin NORM ([facility]) albumin/globulin ratio Albumin/globu veda Ratio NORM ([facility]) ID Date Data Source [id number] 09/06/2020 08:48:00 AM EST NORM ([facility]) Name Value Range Interpretation Code Description Data Jania rce(s) Supporting Document(s) white blood count 5.8 10 4.0-10.0 White Blood Count NORM ([facility]) red blood count 5.59 10 4.30-6.10 Red Blood Count ATHE ([facility]) mean corpuscular volume 89.1 fL 80.0-96.0 Mean Corpusc ular Volume NORM ([facility]) mean corpuscular hemoglobin 29.2 pg 27.0-33.0 Mean Cor puscular Hemoglobin NORM ([facility]) hematocrit 49.8 % 42.0-52.0 Hematocrit NORM ([facility]) hemoglobin 16.3 g/dL 13.5-17.5 Hemoglobin NORM ([facility]) platelet count, automated 269 10 150-450 Platelet C ount, Automated NORM ([facility]) red cell distribution width 11.9 % 11.5-14.5 Red Cell Distribution Width NORM ([facility]) mean corpuscular HGB conc 32.7 g/dL 32.0-36.5 Mean Corpu scular HGB Conc NORM ([facility]) lymph % 27.0 % 24.0-44.0 Lymph % NORM ([facility]) neutrophils % 60.5 % 36.0-66.0 Neutrophils % NORM ( [facility]) mono % 8.8 % 0.0-5.0 Above high normal [place]urry % NORM ([facility]) eos % 2.4 % 0.0-3.0 Eos % NORM ([facility]) baso % 1.0 % 0.0-1.0 Baso % NORM ([facility]) nucleated red blood cell % 0.0 % 0-0 Nucleated Red Blood Cell % NORM ([facility]) neutrophils # 3.5 10 1.5-8.5 Neutrophils # NORM ( [facility]) immature granulocyte % 0.3 % 0-3.0 Immature Gran ulocyte % NORM ([facility]) eos # 0.1 10 0.0-0.5 Eos # NORM ([facility]) lymph # 1.6 10 1.5-5.0 Lymph # NORM ([facility]) mono # 0.5 10 0.0-0.8 [place]urry # NORM ([facility]) baso # 0.1 10 0.0-0.2 Baso # NORM ([facility]) ID Date Data Source [id number] 09/06/2020 08:48:00 AM EST NORM ([facility]) Name Value Range Interpretation Code Description Data Jania rce(s) Supporting Document(s) total 25(oh) vitamin D 15.0 NG/mL 30.0-100.0 Below low normal T otal 25(Oh) Vitamin D NORM ([facility]) ID Date Data Source [id number] 09/06/2020 08:48:00 AM EST NORM ([facility]) Name Value Range Interpretation Code Description Data Jania rce(s) Supporting Document(s) free T4 0.78 NG/dL 0.76-1.46 Free T4 NORM ([facility]) thyroid stimulating hormone 9.020 uIU/mL 0.358-3.740 Above high no rmal Thyroid Stimulating Hormone NORM ([facility]) ID Date Data Source [id number] 09/06/2020 08:48:00 AM EST NORM ([facility]) Name Value Range Interpretation Code Description Data Jania rce(s) Supporting Document(s) cholesterol level 264 mg/dL <200 Above high normal Cholesterol Level NORM ([facility]) triglycerides level 145 mg/dL <150 Triglycerides Le matthew NORM ([facility]) non-HDL-C 220 mg/dL Non-hdl-c NORM ([facility]) Cholesterol in LDL [Mass/volume] in Serum or Plasma 191 mg/dL <100 Above high normal LDL Cholesterol NORM ([facility]) HDL cholesterol 44 mg/dL >40 HDL Cholesterol ATHE NA ([facility]) cholesterol risk ratio <5 Above high normal Choles terol Risk Ratio NORM ([facility]) ID Date Data Source [id number] 09/06/2020 08:48:00 AM EST NORM [facility]) Name Value Range Interpretation Code Description Data Jania rce(s) Supporting Document(s) blood urea nitrogen 11 mg/dL 7-18 Blood Urea Nitro gen NORM ([facility]) glucose, fasting 82 mg/dL 70-100 Glucose, Fasting AT JASWINDER ([facility]) creatinine for GFR 1.07 mg/dL 0.70-1.30 Creatinine for GF R NORM ([facility]) sodium level 138 mEq/L 136-145 Sodium Level NORM ([facility]) potassium serum 4.5 mEq/L 3.5-5.1 Potassium Serum ATHE ([facility]) glomerular filtration rate > 60.0 >60 Glomerula r Filtration Rate NORM ([facility]) anion gap 7 mEq/L 8-16 Below low normal Anion Gap NORM ( [facility]) calcium level 9.2 mg/dL 8.5-10.1 Calcium Level NORM ( [facility]) chloride level 101 mEq/L 98-107 Chloride Level NORM ([facility]) carbon dioxide level 30 mEq/L 21-32 Carbon Dioxide Level NORM ([facility]) AST/SGOT 20 U/L 7-37 AST/SGOT NORM ([facility]) ALT/SGPT 38 U/L 12-78 ALT/SGPT NORM ([facility]) bilirubin,total 0.7 mg/dL 0.2-1.0 Bilirubin,total ATHE ([facility]) alkaline phosphatase 79 U/L 45-117 Alkaline Phosph atase NORM ([facility]) albumin/globulin ratio Albumin/globu veda Ratio NORM ([facility]) albumin 4.7 gm/dL 3.2-5.2 Albumin NORM ([facility]) total protein 8.0 gm/dL 6.4-8.2 Total Protein NORM ( [facility]) ID Date Data Source [id number] 09/06/2020 08:48:00 AM EST NORM ([facility]) Name Value Range Interpretation Code Description Data Jania rce(s) Supporting Document(s) white blood count 5.8 10 4.0-10.0 White Blood Count NORM ([facility]) hemoglobin 16.3 g/dL 13.5-17.5 Hemoglobin NORM ([facility]) red blood count 5.59 10 4.30-6.10 Red Blood Count ATHE NA ([facility]) mean corpuscular volume 89.1 fL 80.0-96.0 Mean Corpusc ular Volume NORM ([facility]) hematocrit 49.8 % 42.0-52.0 Hematocrit NORM ([facility]) red cell distribution width 11.9 % 11.5-14.5 Red Cell Distribution Width NORM ([facility]) mean corpuscular hemoglobin 29.2 pg 27.0-33.0 Mean Cor puscular Hemoglobin NORM ([facility]) mean corpuscular HGB conc 32.7 g/dL 32.0-36.5 Mean Corpu scular HGB Conc NORM ([facility]) platelet count, automated 269 10 150-450 Platelet C ount, Automated NORM ([facility]) neutrophils % 60.5 % 36.0-66.0 Neutrophils % NORM ( [facility]) mono % 8.8 % 0.0-5.0 Above high normal [place]urry % NORM ([facility]) lymph % 27.0 % 24.0-44.0 Lymph % NORM ([facility]) eos % 2.4 % 0.0-3.0 Eos % NORM ([facility]) immature granulocyte % 0.3 % 0-3.0 Immature Gran ulocyte % NORM ([facility]) baso % 1.0 % 0.0-1.0 Baso % NORM ([facility]) mono # 0.5 10 0.0-0.8 [place]urry # NORM ([facility]) neutrophils # 3.5 10 1.5-8.5 Neutrophils # NORM ( [facility]) lymph # 1.6 10 1.5-5.0 Lymph # NORM ([facility]) nucleated red blood cell % 0.0 % 0-0 Nucleated Red Blood Cell % NORM ([facility]) eos # 0.1 10 0.0-0.5 Eos # NORM ([facility]) baso # 0.1 10 0.0-0.2 Baso # NORM ([facility]) ID Date Data Source [id number] 09/06/2020 08:48:00 AM EST NORM ([facility]) Name Value Range Interpretation Code Description Data Jania rce(s) Supporting Document(s) total 25(oh) vitamin D 15.0 NG/mL 30.0-100.0 Below low normal T otal 25(Oh) Vitamin D NORM ([facility]) ID Date Data Source [id number] 09/06/2020 08:48:00 AM EST NORM ([facility]) Name Value Range Interpretation Code Description Data Jania rce(s) Supporting Document(s) thyroid stimulating hormone 9.020 uIU/mL 0.358-3.740 Above high no rmal Thyroid Stimulating Hormone NORM ([facility]) free T4 0.78 NG/dL 0.76-1.46 Free T4 NORM ([facility]) ID Date Data Source [id number] 09/06/2020 08:48:00 AM EST NORM ([facility]) Name Value Range Interpretation Code Description Data Jania rce(s) Supporting Document(s) triglycerides level 145 mg/dL <150 Triglycerides Le matthew NORM ([facility]) non-HDL-C 220 mg/dL Non-hdl-c NORM ([facility]) cholesterol level 264 mg/dL <200 Above high normal Cholesterol Level NORM ([facility]) HDL cholesterol 44 mg/dL >40 HDL Cholesterol ATHE NA ([facility]) Cholesterol in LDL [Mass/volume] in Serum or Plasma 191 mg/dL <100 Above high normal LDL Cholesterol NORM ([facility]) cholesterol risk ratio <5 Above high normal Choles terol Risk Ratio NORM ([facility]) ID Date Data Source [id number] 09/06/2020 08:48:00 AM EST NORM ([facility]) Name Value Range Interpretation Code Description Data Jania rce(s) Supporting Document(s) glucose, fasting 82 mg/dL 70-100 Glucose, Fasting AT JASWINDER ([facility]) creatinine for GFR 1.07 mg/dL 0.70-1.30 Creatinine for GF R NORM ([facility]) blood urea nitrogen 11 mg/dL 7-18 Blood Urea Nitro gen NORM ([facility]) potassium serum 4.5 mEq/L 3.5-5.1 Potassium Serum ATHE NA ([facility]) sodium level 138 mEq/L 136-145 Sodium Level NORM ([facility]) glomerular filtration rate > 60.0 >60 Glomerula r Filtration Rate NORM ([facility]) anion gap 7 mEq/L 8-16 Below low normal Anion Gap NORM ( [facility]) carbon dioxide level 30 mEq/L 21-32 Carbon Dioxide Level NORM ([facility]) chloride level 101 mEq/L 98-107 Chloride Level NORM ([facility]) AST/SGOT 20 U/L 7-37 AST/SGOT NORM ([facility]) ALT/SGPT 38 U/L 12-78 ALT/SGPT NORM ([facility]) calcium level 9.2 mg/dL 8.5-10.1 Calcium Level NORM ( [facility]) total protein 8.0 gm/dL 6.4-8.2 Total Protein NORM ( [facility]) bilirubin,total 0.7 mg/dL 0.2-1.0 Bilirubin,total ATHE NA ([facility]) alkaline phosphatase 79 U/L 45-117 Alkaline Phosph atase NORM ([facility]) albumin 4.7 gm/dL 3.2-5.2 Albumin NORM ([facility]) albumin/globulin ratio Albumin/globu veda Ratio NORM ([facility]) ID Date Data Source [id number] 09/06/2020 08:48:00 AM EST NORM ([facility]) Name Value Range Interpretation Code Description Data Jania rce(s) Supporting Document(s) white blood count 5.8 10 4.0-10.0 White Blood Count NORM ([facility]) red blood count 5.59 10 4.30-6.10 Red Blood Count ATHE NA ([facility]) hemoglobin 16.3 g/dL 13.5-17.5 Hemoglobin NORM ([facility]) hematocrit 49.8 % 42.0-52.0 Hematocrit NORM ([facility]) mean corpuscular hemoglobin 29.2 pg 27.0-33.0 Mean Cor puscular Hemoglobin NORM ([facility]) mean corpuscular volume 89.1 fL 80.0-96.0 Mean Corpusc ular Volume NORM ([facility]) red cell distribution width 11.9 % 11.5-14.5 Red Cell Distribution Width NORM ([facility]) platelet count, automated 269 10 150-450 Platelet C ount, Automated NORM ([facility]) mean corpuscular HGB conc 32.7 g/dL 32.0-36.5 Mean Corpu scular HGB Conc NORM ([facility]) lymph % 27.0 % 24.0-44.0 Lymph % [place] ([facility]) neutrophils % 60.5 % 36.0-66.0 Neutrophils % NORM ( [facility]) eos % 2.4 % 0.0-3.0 Eos % NORM ([facility]) mono % 8.8 % 0.0-5.0 Above high normal Scurry % NORM ([facility]) baso % 1.0 % 0.0-1.0 Baso % [place] ([facility]) immature granulocyte % 0.3 % 0-3.0 Immature Gran ulocyte % NORM ([facility]) nucleated red blood cell % 0.0 % 0-0 Nucleated Red Blood Cell % NORM ([facility]) mono # 0.5 10 0.0-0.8 [place]urry # NORM ([facility]) lymph # 1.6 10 1.5-5.0 Lymph # NORM ([facility]) neutrophils # 3.5 10 1.5-8.5 Neutrophils # NORM ( [facility]) baso # 0.1 10 0.0-0.2 Baso # NORM ([facility]) eos # 0.1 10 0.0-0.5 Eos # NORM ([facility]) ID Date Data Source [id number] 09/06/2020 08:48:00 AM EST NORM ([facility]) Name Value Range Interpretation Code Description Data Jania rce(s) Supporting Document(s) total 25(oh) vitamin D 15.0 NG/mL 30.0-100.0 Below low normal T otal 25(Oh) Vitamin D NORM ([facility]) ID Date Data Source [id number] 09/06/2020 08:48:00 AM EST NORM ([facility]) Name Value Range Interpretation Code Description Data Jania rce(s) Supporting Document(s) free T4 0.78 NG/dL 0.76-1.46 Free T4 NORM ([facility]) thyroid stimulating hormone 9.020 uIU/mL 0.358-3.740 Above high no rmal Thyroid Stimulating Hormone NORM ([facility]) ID Date Data Source [id number] 09/06/2020 08:48:00 AM EST NORM ([facility]) Name Value Range Interpretation Code Description Data Jania rce(s) Supporting Document(s) triglycerides level 145 mg/dL <150 Triglycerides Le matthew NORM ([facility]) cholesterol level 264 mg/dL <200 Above high normal Cholesterol Level NORM ([facility]) HDL cholesterol 44 mg/dL >40 HDL Cholesterol ATHE NA ([facility]) Cholesterol in LDL [Mass/volume] in Serum or Plasma 191 mg/dL <100 Above high normal LDL Cholesterol NORM ([facility]) non-HDL-C 220 mg/dL Non-hdl-c NORM ([facility]) cholesterol risk ratio <5 Above high normal Choles terol Risk Ratio NORM ([facility]) ID Date Data Source [id number] 09/06/2020 08:48:00 AM EST NORM ([facility]) Name Value Range Interpretation Code Description Data Jania rce(s) Supporting Document(s) glucose, fasting 82 mg/dL 70-100 Glucose, Fasting AT JASWINDER ([facility]) glomerular filtration rate > 60.0 >60 Glomerula r Filtration Rate NORM ([facility]) sodium level 138 mEq/L 136-145 Sodium Level NORM ([facility]) creatinine for GFR 1.07 mg/dL 0.70-1.30 Creatinine for GF R NORM ([facility]) blood urea nitrogen 11 mg/dL 7-18 Blood Urea Nitro gen NORM ([facility]) potassium serum 4.5 mEq/L 3.5-5.1 Potassium Serum ATHE NA ([facility]) chloride level 101 mEq/L 98-107 Chloride Level NORM ([facility]) carbon dioxide level 30 mEq/L 21-32 Carbon Dioxide Level NORM ([facility]) anion gap 7 mEq/L 8-16 Below low normal Anion Gap NORM ( [facility]) AST/SGOT 20 U/L 7-37 AST/SGOT NORM ([facility]) ALT/SGPT 38 U/L 12-78 ALT/SGPT NORM ([facility]) calcium level 9.2 mg/dL 8.5-10.1 Calcium Level NORM ( [facility]) alkaline phosphatase 79 U/L 45-117 Alkaline Phosph atase NORM ([facility]) total protein 8.0 gm/dL 6.4-8.2 Total Protein NORM ( [facility]) bilirubin,total 0.7 mg/dL 0.2-1.0 Bilirubin,total ATHE NA ([facility]) albumin 4.7 gm/dL 3.2-5.2 Albumin NORM ([facility]) albumin/globulin ratio Albumin/globu veda Ratio NORM ([facility]) ID Date Data Source [id number] 09/06/2020 08:48:00 AM EST NORM ([facility]) Name Value Range Interpretation Code Description Data Jania rce(s) Supporting Document(s) white blood count 5.8 10 4.0-10.0 White Blood Count NORM ([facility]) hemoglobin 16.3 g/dL 13.5-17.5 Hemoglobin NORM ([facility]) red blood count 5.59 10 4.30-6.10 Red Blood Count ATHE NA ([facility]) mean corpuscular volume 89.1 fL 80.0-96.0 Mean Corpusc ular Volume NORM ([facility]) hematocrit 49.8 % 42.0-52.0 Hematocrit NORM ([facility]) mean corpuscular HGB conc 32.7 g/dL 32.0-36.5 Mean Corpu scular HGB Conc NORM ([facility]) mean corpuscular hemoglobin 29.2 pg 27.0-33.0 Mean Cor puscular Hemoglobin NORM ([facility]) neutrophils % 60.5 % 36.0-66.0 Neutrophils % NORM ( [facility]) lymph % 27.0 % 24.0-44.0 Lymph % NORM ([facility]) red cell distribution width 11.9 % 11.5-14.5 Red Cell Distribution Width NORM ([facility]) platelet count, automated 269 10 150-450 Platelet C ount, Automated NORM ([facility]) eos % 2.4 % 0.0-3.0 Eos % NORM ([facility]) baso % 1.0 % 0.0-1.0 Baso % NORM ([facility]) mono % 8.8 % 0.0-5.0 Above high normal [place] % NORM ([facility]) nucleated red blood cell % 0.0 % 0-0 Nucleated Red Blood Cell % NORM ([facility]) neutrophils # 3.5 10 1.5-8.5 Neutrophils # NORM ( [facility]) immature granulocyte % 0.3 % 0-3.0 Immature Gran ulocyte % NORM ([facility]) lymph # 1.6 10 1.5-5.0 Lymph # NORM ([facility]) mono # 0.5 10 0.0-0.8 [place] # NORM ([facility]) baso # 0.1 10 0.0-0.2 Baso # NORM ([facility]) eos # 0.1 10 0.0-0.5 Eos # NORM ([facility]) ID Date Data Source [id number] 09/06/2020 08:48:00 AM EST NORM ([facility]) Name Value Range Interpretation Code Description Data Jania rce(s) Supporting Document(s) total 25(oh) vitamin D 15.0 NG/mL 30.0-100.0 Below low normal T otal 25(Oh) Vitamin D [place] ([facility]) ID Date Data Source [id number] 09/06/2020 08:48:00 AM EST NORM ([facility]) Name Value Range Interpretation Code Description Data Jania rce(s) Supporting Document(s) free T4 0.78 NG/dL 0.76-1.46 Free T4 [place] ([facility]) thyroid stimulating hormone 9.020 uIU/mL 0.358-3.740 Above high no rmal Thyroid Stimulating Hormone NORM ([facility]) ID Date Data Source [id number] 09/06/2020 08:48:00 AM EST NORM ([facility]) Name Value Range Interpretation Code Description Data Jania rce(s) Supporting Document(s) cholesterol level 264 mg/dL <200 Above high normal Cholesterol Level NORM ([facility]) HDL cholesterol 44 mg/dL >40 HDL Cholesterol ATHE NA ([facility]) triglycerides level 145 mg/dL <150 Triglycerides Le matthew NORM ([facility]) cholesterol risk ratio <5 Above high normal Choles terol Risk Ratio NORM ([facility]) Cholesterol in LDL [Mass/volume] in Serum or Plasma 191 mg/dL <100 Above high normal LDL Cholesterol NORM ([facility]) non-HDL-C 220 mg/dL Non-hdl-c NORM ([facility]) ID Date Data Source [id number] 09/06/2020 08:48:00 AM EST NORM ([facility]) Name Value Range Interpretation Code Description Data Jania rce(s) Supporting Document(s) glucose, fasting 82 mg/dL 70-100 Glucose, Fasting AT [facility] ([facility]) blood urea nitrogen 11 mg/dL 7-18 Blood Urea Nitro gen NORM ([facility]) glomerular filtration rate > 60.0 >60 Glomerula r Filtration Rate NORM ([facility]) sodium level 138 mEq/L 136-145 Sodium Level NORM ([facility]) creatinine for GFR 1.07 mg/dL 0.70-1.30 Creatinine for GF R NORM ([facility]) chloride level 101 mEq/L 98-107 Chloride Level NORM ([facility]) carbon dioxide level 30 mEq/L 21-32 Carbon Dioxide Level NORM ([facility]) anion gap 7 mEq/L 8-16 Below low normal Anion Gap NORM ( [facility]) potassium serum 4.5 mEq/L 3.5-5.1 Potassium Serum ATHE NA ([facility]) alkaline phosphatase 79 U/L 45-117 Alkaline Phosph atase NORM ([facility]) ALT/SGPT 38 U/L 12-78 ALT/SGPT NORM ([facility]) AST/SGOT 20 U/L 7-37 AST/SGOT NORM ([facility]) calcium level 9.2 mg/dL 8.5-10.1 Calcium Level NORM ( [facility]) total protein 8.0 gm/dL 6.4-8.2 Total Protein NORM ( [facility]) albumin 4.7 gm/dL 3.2-5.2 Albumin NORM ([facility]) bilirubin,total 0.7 mg/dL 0.2-1.0 Bilirubin,total ATHE NA ([facility]) albumin/globulin ratio Albumin/globu veda Ratio NORM ([facility]) ID Date Data Source [id number] 09/06/2020 08:48:00 AM EST NORM ([facility]) Name Value Range Interpretation Code Description Data Jania rce(s) Supporting Document(s) white blood count 5.8 10 4.0-10.0 White Blood Count NORM ([facility]) hemoglobin 16.3 g/dL 13.5-17.5 Hemoglobin NORM ([facility]) red blood count 5.59 10 4.30-6.10 Red Blood Count ATHE NA ([facility]) mean corpuscular HGB conc 32.7 g/dL 32.0-36.5 Mean Corpu scular HGB Conc NORM ([facility]) mean corpuscular hemoglobin 29.2 pg 27.0-33.0 Mean Cor puscular Hemoglobin NORM ([facility]) mean corpuscular volume 89.1 fL 80.0-96.0 Mean Corpusc ular Volume NORM ([facility]) hematocrit 49.8 % 42.0-52.0 Hematocrit NORM ([facility]) neutrophils % 60.5 % 36.0-66.0 Neutrophils % NORM ( [facility]) platelet count, automated 269 10 150-450 Platelet C ount, Automated NORM ([facility]) red cell distribution width 11.9 % 11.5-14.5 Red Cell Distribution Width NORM ([facility]) eos % 2.4 % 0.0-3.0 Eos % NORM ([facility]) baso % 1.0 % 0.0-1.0 Baso % NORM ([facility]) mono % 8.8 % 0.0-5.0 Above high normal Scurry % NORM ([facility]) lymph % 27.0 % 24.0-44.0 Lymph % NORM ([facility]) neutrophils # 3.5 10 1.5-8.5 Neutrophils # NORM ( [facility]) nucleated red blood cell % 0.0 % 0-0 Nucleated Red Blood Cell % NORM ([facility]) lymph # 1.6 10 1.5-5.0 Lymph # NORM ([facility]) immature granulocyte % 0.3 % 0-3.0 Immature Gran ulocyte % NORM ([facility]) mono # 0.5 10 0.0-0.8 Scurry # NORM ([facility]) baso # 0.1 10 0.0-0.2 Baso # NORM ([facility]) eos # 0.1 10 0.0-0.5 Eos # NORM ([facility]) ID Date Data Source [id number] 09/06/2020 08:48:00 AM EST NORM ([facility]) Name Value Range Interpretation Code Description Data Jania rce(s) Supporting Document(s) total 25(oh) vitamin D 15.0 NG/mL 30.0-100.0 Below low normal T otal 25(Oh) Vitamin D [place] ([facility]) ID Date Data Source [id number] 09/06/2020 08:48:00 AM EST NORM ([facility]) Name Value Range Interpretation Code Description Data Jania rce(s) Supporting Document(s) thyroid stimulating hormone 9.020 uIU/mL 0.358-3.740 Above high no rmal Thyroid Stimulating Hormone NORM ([facility]) free T4 0.78 NG/dL 0.76-1.46 Free T4 [place] ([facility]) ID Date Data Source [id number] 09/06/2020 08:48:00 AM EST NORM ([facility]) Name Value Range Interpretation Code Description Data Jania rce(s) Supporting Document(s) cholesterol level 264 mg/dL <200 Above high normal Cholesterol Level NORM ([facility]) triglycerides level 145 mg/dL <150 Triglycerides Le matthew NORM ([facility]) Cholesterol in LDL [Mass/volume] in Serum or Plasma 191 mg/dL <100 Above high normal LDL Cholesterol NORM ([facility]) non-HDL-C 220 mg/dL Non-hdl-c NORM ([facility]) HDL cholesterol 44 mg/dL >40 HDL Cholesterol ATHE NA ([facility]) cholesterol risk ratio <5 Above high normal Choles terol Risk Ratio NORM ([facility]) ID Date Data Source [id number] 09/06/2020 08:48:00 AM EST NORM ([facility]) Name Value Range Interpretation Code Description Data Jania rce(s) Supporting Document(s) glucose, fasting 82 mg/dL 70-100 Glucose, Fasting AT [facility] ([facility]) glomerular filtration rate > 60.0 >60 Glomerula r Filtration Rate NORM ([facility]) creatinine for GFR 1.07 mg/dL 0.70-1.30 Creatinine for GF R NORM ([facility]) blood urea nitrogen 11 mg/dL 7-18 Blood Urea Nitro gen NORM ([facility]) potassium serum 4.5 mEq/L 3.5-5.1 Potassium Serum ATHE NA ([facility]) sodium level 138 mEq/L 136-145 Sodium Level NORM ([facility]) chloride level 101 mEq/L 98-107 Chloride Level NORM ([facility]) carbon dioxide level 30 mEq/L 21-32 Carbon Dioxide Level NORM ([facility]) calcium level 9.2 mg/dL 8.5-10.1 Calcium Level NORM ( [facility]) AST/SGOT 20 U/L 7-37 AST/SGOT NORM ([facility]) anion gap 7 mEq/L 8-16 Below low normal Anion Gap NORM ( [facility]) alkaline phosphatase 79 U/L 45-117 Alkaline Phosph atase NORM ([facility]) ALT/SGPT 38 U/L 12-78 ALT/SGPT NORM ([facility]) total protein 8.0 gm/dL 6.4-8.2 Total Protein NORM ( [facility]) bilirubin,total 0.7 mg/dL 0.2-1.0 Bilirubin,total ATHE NA ([facility]) albumin 4.7 gm/dL 3.2-5.2 Albumin NORM ([facility]) albumin/globulin ratio Albumin/globu veda Ratio NORM ([facility]) ID Date Data Source [id number] 09/06/2020 08:48:00 AM EST NORM ([facility]) Name Value Range Interpretation Code Description Data Jania rce(s) Supporting Document(s) white blood count 5.8 10 4.0-10.0 White Blood Count NORM ([facility]) hemoglobin 16.3 g/dL 13.5-17.5 Hemoglobin NORM ([facility]) red blood count 5.59 10 4.30-6.10 Red Blood Count ATHE NA ([facility]) hematocrit 49.8 % 42.0-52.0 Hematocrit NORM ([facility]) mean corpuscular volume 89.1 fL 80.0-96.0 Mean Corpusc ular Volume NORM ([facility]) mean corpuscular hemoglobin 29.2 pg 27.0-33.0 Mean Cor puscular Hemoglobin NORM ([facility]) mean corpuscular HGB conc 32.7 g/dL 32.0-36.5 Mean Corpu scular HGB Conc NORM ([facility]) neutrophils % 60.5 % 36.0-66.0 Neutrophils % NORM ( [facility]) red cell distribution width 11.9 % 11.5-14.5 Red Cell Distribution Width NORM ([facility]) lymph % 27.0 % 24.0-44.0 Lymph % NORM ([facility]) platelet count, automated 269 10 150-450 Platelet C ount, Automated NORM ([facility]) immature granulocyte % 0.3 % 0-3.0 Immature Gran ulocyte % NORM ([facility]) baso % 1.0 % 0.0-1.0 Baso % NORM ([facility]) eos % 2.4 % 0.0-3.0 Eos % NORM ([facility]) mono % 8.8 % 0.0-5.0 Above high normal [place]urry % NORM ([facility]) nucleated red blood cell % 0.0 % 0-0 Nucleated Red Blood Cell % NORM ([facility]) neutrophils # 3.5 10 1.5-8.5 Neutrophils # NORM ( [facility]) mono # 0.5 10 0.0-0.8 Scurry # NORM ([facility]) baso # 0.1 10 0.0-0.2 Baso # NORM ([facility]) lymph # 1.6 10 1.5-5.0 Lymph # NORM ([facility]) eos # 0.1 10 0.0-0.5 Eos # NORM ([facility]) ID Date Data Source [id number] 09/06/2020 08:48:00 AM EST NORM ([facility]) Name Value Range Interpretation Code Description Data Jania rce(s) Supporting Document(s) total 25(oh) vitamin D 15.0 NG/mL 30.0-100.0 Below low normal T otal 25(Oh) Vitamin D [place] ([facility]) ID Date Data Source [id number] 09/06/2020 08:48:00 AM EST NORM ([facility]) Name Value Range Interpretation Code Description Data Jania rce(s) Supporting Document(s) thyroid stimulating hormone 9.020 uIU/mL 0.358-3.740 Above high no rmal Thyroid Stimulating Hormone NORM ([facility]) free T4 0.78 NG/dL 0.76-1.46 Free T4 NORM ([facility]) ID Date Data Source [id number] 09/06/2020 08:48:00 AM EST NORM ([facility]) Name Value Range Interpretation Code Description Data Jania rce(s) Supporting Document(s) triglycerides level 145 mg/dL <150 Triglycerides Le matthew NORM ([facility]) Cholesterol in LDL [Mass/volume] in Serum or Plasma 191 mg/dL <100 Above high normal LDL Cholesterol NORM ([facility]) HDL cholesterol 44 mg/dL >40 HDL Cholesterol ATHE NA ([facility]) non-HDL-C 220 mg/dL Non-hdl-c NORM ([facility]) cholesterol level 264 mg/dL <200 Above high normal Cholesterol Level NORM ([facility]) cholesterol risk ratio <5 Above high normal Choles terol Risk Ratio NORM ([facility]) ID Date Data Source [id number] 09/06/2020 08:48:00 AM EST NORM ([facility]) Name Value Range Interpretation Code Description Data Jania rce(s) Supporting Document(s) blood urea nitrogen 11 mg/dL 7-18 Blood Urea Nitro gen NORM ([facility]) glucose, fasting 82 mg/dL 70-100 Glucose, Fasting AT [facility] ([facility]) creatinine for GFR 1.07 mg/dL 0.70-1.30 Creatinine for GF R NORM ([facility]) carbon dioxide level 30 mEq/L 21-32 Carbon Dioxide Level NORM ([facility]) potassium serum 4.5 mEq/L 3.5-5.1 Potassium Serum ATHE NA ([facility]) glomerular filtration rate > 60.0 >60 Glomerula r Filtration Rate NORM ([facility]) sodium level 138 mEq/L 136-145 Sodium Level NORM ([facility]) chloride level 101 mEq/L 98-107 Chloride Level NORM ([facility]) anion gap 7 mEq/L 8-16 Below low normal Anion Gap NORM ( [facility]) AST/SGOT 20 U/L 7-37 AST/SGOT NORM ([facility]) calcium level 9.2 mg/dL 8.5-10.1 Calcium Level NORM ( [facility]) bilirubin,total 0.7 mg/dL 0.2-1.0 Bilirubin,total ATHE NA ([facility]) ALT/SGPT 38 U/L 12-78 ALT/SGPT NORM ([facility]) alkaline phosphatase 79 U/L 45-117 Alkaline Phosph atase NORM ([facility]) total protein 8.0 gm/dL 6.4-8.2 Total Protein NORM ( [facility]) albumin 4.7 gm/dL 3.2-5.2 Albumin NORM ([facility]) albumin/globulin ratio Albumin/globu veda Ratio NORM ([facility]) ID Date Data Source [id number] 09/06/2020 08:48:00 AM EST NORM ([facility]) Name Value Range Interpretation Code Description Data Jania rce(s) Supporting Document(s) white blood count 5.8 10 4.0-10.0 White Blood Count NORM ([facility]) red blood count 5.59 10 4.30-6.10 Red Blood Count ATHE NA ([facility]) hemoglobin 16.3 g/dL 13.5-17.5 Hemoglobin NORM ([facility]) mean corpuscular volume 89.1 fL 80.0-96.0 Mean Corpusc ular Volume NORM ([facility]) hematocrit 49.8 % 42.0-52.0 Hematocrit NORM ([facility]) mean corpuscular hemoglobin 29.2 pg 27.0-33.0 Mean Cor puscular Hemoglobin NORM ([facility]) mean corpuscular HGB conc 32.7 g/dL 32.0-36.5 Mean Corpu scular HGB Conc NORM ([facility]) red cell distribution width 11.9 % 11.5-14.5 Red Cell Distribution Width NORM ([facility]) platelet count, automated 269 10 150-450 Platelet C ount, Automated NORM ([facility]) mono % 8.8 % 0.0-5.0 Above high normal [place] % NORM ([facility]) neutrophils % 60.5 % 36.0-66.0 Neutrophils % NROM ( [facility]) lymph % 27.0 % 24.0-44.0 Lymph % NORM ([facility]) eos % 2.4 % 0.0-3.0 Eos % NORM ([facility]) nucleated red blood cell % 0.0 % 0-0 Nucleated Red Blood Cell % NORM ([facility]) baso % 1.0 % 0.0-1.0 Baso % NORM ([facility]) immature granulocyte % 0.3 % 0-3.0 Immature Gran ulocyte % NORM ([facility]) mono # 0.5 10 0.0-0.8 [place]urry # NORM ([facility]) neutrophils # 3.5 10 1.5-8.5 Neutrophils # NORM ( [facility]) lymph # 1.6 10 1.5-5.0 Lymph # NORM ([facility]) eos # 0.1 10 0.0-0.5 Eos # NORM ([facility]) baso # 0.1 10 0.0-0.2 Baso # NORM ([facility]) ID Date Data Source [id number] 09/06/2020 08:48:00 AM EST [place] ([facility]) Name Value Range Interpretation Code Description Data Jania rce(s) Supporting Document(s) total 25(oh) vitamin D 15.0 NG/mL 30.0-100.0 Below low normal T otal 25(Oh) Vitamin D [place] ([facility]) ID Date Data Source [id number] 09/06/2020 08:48:00 AM EST [place] ([facility]) Name Value Range Interpretation Code Description Data Jania rce(s) Supporting Document(s) free T4 0.78 NG/dL 0.76-1.46 Free T4 NORM ([facility]) thyroid stimulating hormone 9.020 uIU/mL 0.358-3.740 Above high no rmal Thyroid Stimulating Hormone [place] ([facility]) ID Date Data Source [id number] 09/06/2020 08:48:00 AM EST NORM ([facility]) Name Value Range Interpretation Code Description Data Jania rce(s) Supporting Document(s) triglycerides level 145 mg/dL <150 Triglycerides Le matthew NORM ([facility]) non-HDL-C 220 mg/dL Non-hdl-c NORM ([facility]) HDL cholesterol 44 mg/dL >40 HDL Cholesterol ATHE NA ([facility]) cholesterol level 264 mg/dL <200 Above high normal Cholesterol Level NORM ([facility]) Cholesterol in LDL [Mass/volume] in Serum or Plasma 191 mg/dL <100 Above high normal LDL Cholesterol NORM ([facility]) cholesterol risk ratio <5 Above high normal Choles terol Risk Ratio NORM ([facility]) ID Date Data Source [id number] 09/06/2020 08:48:00 AM EST NORM ([facility]) Name Value Range Interpretation Code Description Data Jania rce(s) Supporting Document(s) blood urea nitrogen 11 mg/dL 7-18 Blood Urea Nitro gen NORM ([facility]) glucose, fasting 82 mg/dL 70-100 Glucose, Fasting AT [facility] ([facility]) creatinine for GFR 1.07 mg/dL 0.70-1.30 Creatinine for GF R NROM ([facility]) sodium level 138 mEq/L 136-145 Sodium Level NORM ([facility]) potassium serum 4.5 mEq/L 3.5-5.1 Potassium Serum ATHE NA ([facility]) glomerular filtration rate > 60.0 >60 Glomerula r Filtration Rate NORM ([facility]) anion gap 7 mEq/L 8-16 Below low normal Anion Gap NORM ( [facility]) calcium level 9.2 mg/dL 8.5-10.1 Calcium Level NORM ( [facility]) AST/SGOT 20 U/L 7-37 AST/SGOT NORM ([facility]) carbon dioxide level 30 mEq/L 21-32 Carbon Dioxide Level NORM ([facility]) chloride level 101 mEq/L 98-107 Chloride Level NORM ([facility]) bilirubin,total 0.7 mg/dL 0.2-1.0 Bilirubin,total ATHE NA ([facility]) ALT/SGPT 38 U/L 12-78 ALT/SGPT NORM ([facility]) alkaline phosphatase 79 U/L 45-117 Alkaline Phosph atase NORM ([facility]) total protein 8.0 gm/dL 6.4-8.2 Total Protein NORM ( [facility]) albumin 4.7 gm/dL 3.2-5.2 Albumin NORM ([facility]) albumin/globulin ratio Albumin/globu veda Ratio NORM ([facility]) ID Date Data Source [id number] 09/06/2020 08:48:00 AM EST NORM ([facility]) Name Value Range Interpretation Code Description Data Jania rce(s) Supporting Document(s) white blood count 5.8 10 4.0-10.0 White Blood Count NORM ([facility]) hemoglobin 16.3 g/dL 13.5-17.5 Hemoglobin NORM ([facility]) hematocrit 49.8 % 42.0-52.0 Hematocrit NORM ([facility]) red blood count 5.59 10 4.30-6.10 Red Blood Count ATHE NA ([facility]) mean corpuscular HGB conc 32.7 g/dL 32.0-36.5 Mean Corpu scular HGB Conc NORM ([facility]) mean corpuscular hemoglobin 29.2 pg 27.0-33.0 Mean Cor puscular Hemoglobin NORM ([facility]) mean corpuscular volume 89.1 fL 80.0-96.0 Mean Corpusc ular Volume NORM ([facility]) red cell distribution width 11.9 % 11.5-14.5 Red Cell Distribution Width NORM ([facility]) neutrophils % 60.5 % 36.0-66.0 Neutrophils % NORM ( [facility]) lymph % 27.0 % 24.0-44.0 Lymph % [place] ([facility]) platelet count, automated 269 10 150-450 Platelet C ount, Automated NORM ([facility]) mono % 8.8 % 0.0-5.0 Above high normal Scurry % [place] ([facility]) immature granulocyte % 0.3 % 0-3.0 Immature Gran ulocyte % NORM ([facility]) baso % 1.0 % 0.0-1.0 Baso % NORM ([facility]) eos % 2.4 % 0.0-3.0 Eos % [place] ([facility]) mono # 0.5 10 0.0-0.8 Scurry # [place] ([facility]) neutrophils # 3.5 10 1.5-8.5 Neutrophils # [place] ( [facility]) nucleated red blood cell % 0.0 % 0-0 Nucleated Red Blood Cell % [place] ([facility]) lymph # 1.6 10 1.5-5.0 Lymph # [place] ([facility]) baso # 0.1 10 0.0-0.2 Baso # NORM ([facility]) eos # 0.1 10 0.0-0.5 Eos # [place] ([facility]) ID Date Data Source [id number] 08/21/2020 12:00:00 AM EST [facility] Name Value Range Interpretation Code Description Data Jania rce(s) Supporting Document(s) SARS coronavirus 2 Ag [facility] This lab was ordered by [facility] and reported by [facility]. Procedure Social History No Information Vital Signs ID Date Data Source [id number] Name Value Range Interpretation Code Description Data Source(s) Body height 72 [in_i] 72 [in_i] [place] ([facility]) Body mass index (BMI) [Ratio] 22.4 kg/m2 22.4 k g/m2 [facility] ([facility]) Body height 72 [in_i] 72 [in_i] [facility] ([facility]) 6'0" Systolic blood pressure 126 mm[Hg] 126 mm[Hg] M EDENT ([facility], [facility]) Heart rate 111 /min 111 /min MEDENT ([facility], [facility]) Diastolic blood pressure 84 mm[Hg] 84 mm[Hg] MEDENT ([facility], [facility]) Oxygen saturation in Arterial blood by Pulse oximetry 96 % 96 % MEDENT ([facility], [facility]) Respiratory rate 16 /min 16 /min MEDENT ( [facility], [facility]) Body temperature 99.0 [degF] 99.0 [degF] MEDENT ([facility], [facility]) Body weight 165.00 [lb_av] 165.00 [lb_av] MEDEN T ([facility], [facility]) Body mass index (BMI) [Ratio] 24.3 kg/m2 24.3 k g/m2 NORM ([facility]) Diastolic blood pressure 84 mm[Hg] 84 mm[Hg] NORM ([facility]) Body height 72 [in_i] 72 [in_i] NORM ([facility]) Systolic blood pressure 153 mm[Hg] 153 mm[Hg] A [facility] ([facility]) Systolic blood pressure 126 mm[Hg] 126 mm[Hg] A [facility] ([facility]) Diastolic blood pressure 95 mm[Hg] 95 mm[Hg] NORM ([facility]) Body weight 2864 [oz_av] 2864 [oz_av] NORM ([facility]) Systolic blood pressure 153 mm[Hg] 153 mm[Hg] A [facility] ([facility]) Body mass index (BMI) [Ratio] 24.3 kg/m2 24.3 k g/m2 NORM ([facility]) Systolic blood pressure 126 mm[Hg] 126 mm[Hg] A [facility] ([facility]) Body weight 2864 [oz_av] 2864 [oz_av] NORM ([facility]) Diastolic blood pressure 84 mm[Hg] 84 mm[Hg] NORM ([facility]) Diastolic blood pressure 95 mm[Hg] 95 mm[Hg] NORM ([facility]) Body height 72 [in_i] 72 [in_i] NORM ([facility]) Diastolic blood pressure 84 mm[Hg] 84 mm[Hg] NORM ([facility]) Diastolic blood pressure 95 mm[Hg] 95 mm[Hg] NORM ([facility]) Body height 72 [in_i] 72 [in_i] NORM ([facility]) Body mass index (BMI) [Ratio] 24.3 kg/m2 24.3 k g/m2 NORM ([facility]) Systolic blood pressure 126 mm[Hg] 126 mm[Hg] [facility] Systolic blood pressure 153 mm[Hg] 153 mm[Hg] A [facility] ([facility]) Body weight 2864 [oz_av] 2864 [oz_av] NORM ([facility]) Diastolic blood pressure 76 mm[Hg] 76 mm[Hg] NORM ([facility]) Body mass index (BMI) [Ratio] 25.1 kg/m2 25.1 k g/m2 NORM ([facility]) Systolic blood pressure 121 mm[Hg] 121 mm[Hg] A [facility] ([facility]) Body weight 2966.4 [oz_av] 2966.4 [oz_av] ATHEN A ([facility]) Body height 72 [in_i] 72 [in_i] NORM ([facility]) Diastolic blood pressure 76 mm[Hg] 76 mm[Hg] NORM ([facility]) Body height 72 [in_i] 72 [in_i] NORM ([facility]) Body mass index (BMI) [Ratio] 25.1 kg/m2 25.1 k g/m2 NORM ([facility]) Systolic blood pressure 121 mm[Hg] 121 mm[Hg] A [facility] ([facility]) Body weight 2966.4 [oz_av] 2966.4 [oz_av] ATHEN A ([facility]) Diastolic blood pressure 76 mm[Hg] 76 mm[Hg] NORM ([facility]) Body height 72 [in_i] 72 [in_i] NORM ([facility]) Body weight 2966.4 [oz_av] 2966.4 [oz_av] ATHEN A ([facility]) Body mass index (BMI) [Ratio] 25.1 kg/m2 25.1 k g/m2 NORM ([facility]) Systolic blood pressure 121 mm[Hg] 121 mm[Hg] [facility] Diastolic blood pressure 76 mm[Hg] 76 mm[Hg] NORM ([facility]) Body height 72 [in_i] 72 [in_i] NORM ([facility]) Body mass index (BMI) [Ratio] 25.1 kg/m2 25.1 k g/m2 NORM ([facility]) Systolic blood pressure 121 mm[Hg] 121 mm[Hg] A THENA ([facility]) Body weight 2966.4 [oz_av] 2966.4 [oz_av] ATHEN A ([facility]) Respiratory rate 16 /min 16 /min MEDENT ( [facility], [facility]) Oxygen saturation in Arterial blood by Pulse oximetry 97 % 97 % [facility] ([facility], [facility]) Body temperature 98.1 [degF] 98.1 [degF] MEDENT ([facility], [facility]) Body weight 175.00 [lb_av] 175.00 [lb_av] MEDEN T ([facility], [facility]) Body height 72 [in_i] 72 [in_i] MEDENT ([facility], [facility]) 6'0" Body mass index (BMI) [Ratio] 23.7 kg/m2 23.7 k g/m2 MEDENT ([facility], [facility]) Systolic blood pressure 138 mm[Hg] 138 mm[Hg] M EDENT ([facility], [facility]) Diastolic blood pressure 94 mm[Hg] 94 mm[Hg] MEDENT ([facility], [facility]) Heart rate 73 /min 73 /min MEDENT ([facility], [facility]) Systolic blood pressure 131 mm[Hg] 131 mm[Hg] A THENA ([facility]) Diastolic blood pressure 80 mm[Hg] 80 mm[Hg] NORM ([facility]) Body height 72 [in_i] 72 [in_i] NORM ([facility]) Body mass index (BMI) [Ratio] 25 kg/m2 25 kg/ m2 NORM ([facility]) Body weight 2949 [oz_av] 2949 [oz_av] NORM ([facility]) Diastolic blood pressure 80 mm[Hg] 80 mm[Hg] NORM ([facility]) Body height 72 [in_i] 72 [in_i] NORM ([facility]) Body mass index (BMI) [Ratio] 25 kg/m2 25 kg/ m2 NORM ([facility]) Systolic blood pressure 131 mm[Hg] 131 mm[Hg] A [facility] ([facility]) Body weight 2949 [oz_av] 2949 [oz_av] NORM ([facility]) Body mass index (BMI) [Ratio] 25 kg/m2 25 kg/ m2 NORM ([facility]) Systolic blood pressure 131 mm[Hg] 131 mm[Hg] [facility] Body weight 2949 [oz_av] 2949 [oz_av] NORM ([facility]) Body height 72 [in_i] 72 [in_i] NORM ([facility]) Diastolic blood pressure 80 mm[Hg] 80 mm[Hg] NORM ([facility]) Diastolic blood pressure 80 mm[Hg] 80 mm[Hg] NORM ([facility]) Body height 72 [in_i] 72 [in_i] NORM ([facility]) Body mass index (BMI) [Ratio] 25 kg/m2 25 kg/ m2 NORM ([facility]) Systolic blood pressure 131 mm[Hg] 131 mm[Hg] A THENA ([facility]) Body weight 2949 [oz_av] 2949 [oz_av] NORM ([facility]) Diastolic blood pressure 80 mm[Hg] 80 mm[Hg] NORM ([facility]) Body height 72 [in_i] 72 [in_i] NORM ([facility]) Body mass index (BMI) [Ratio] 25 kg/m2 25 kg/ m2 NORM ([facility]) Systolic blood pressure 131 mm[Hg] 131 mm[Hg] A THENA ([facility]) Body weight 2949 [oz_av] 2949 [oz_av] NORM ([facility]) Diastolic blood pressure 80 mm[Hg] 80 mm[Hg] NORM ([facility]) Body height 72 [in_i] 72 [in_i] NORM ([facility]) Body mass index (BMI) [Ratio] 25 kg/m2 25 kg/ m2 NORM ([facility]) Systolic blood pressure 131 mm[Hg] 131 mm[Hg] A THENA ([facility]) Body weight 2949 [oz_av] 2949 [oz_av] NORM ([facility]) Systolic blood pressure 140 mm[Hg] 140 mm[Hg] Kizzy TEJEDA ([facility], ) Diastolic blood pressure 70 mm[Hg] 70 mm[Hg] [facility], ) Body height 72 [in_i] 72 [in_i] [facility] ([facility], ) 6'0" Body weight 176.00 [lb_av] 176.00 [lb_av] MEDEN T ([facility], ) Body mass index (BMI) [Ratio] 23.9 kg/m2 23.9 k g/m2 [facility] ([facility], ) [place] body weight 178 [lb_av] 178 [lb_av] MEDEN T ([facility], ) Body weight 79.834 kg 79.834 kg [facility] ([facility], ) Body surface area Derived from formula 2.02 m2 2.02 m2 [facility] ([facility], ) Diastolic blood pressure 86 mm[Hg] 86 mm[Hg] NORM ([facility]) Body height 72 [in_i] 72 [in_i] NORM ([facility]) Systolic blood pressure 150 mm[Hg] 150 mm[Hg] A THENA ([facility]) Body mass index (BMI) [Ratio] 24.7 kg/m2 24.7 k g/m2 NORM ([facility]) Body weight 2918.4 [oz_av] 2918.4 [oz_av] ATHEN A ([facility]) Diastolic blood pressure 86 mm[Hg] 86 mm[Hg] NORM ([facility]) Body height 72 [in_i] 72 [in_i] NORM ([facility]) Body mass index (BMI) [Ratio] 24.7 kg/m2 24.7 k g/m2 NORM ([facility]) Systolic blood pressure 150 mm[Hg] 150 mm[Hg] [facility] Body weight 2918.4 [oz_av] 2918.4 [oz_av] ATHEN A ([facility]) Diastolic blood pressure 86 mm[Hg] 86 mm[Hg] NORM ([facility]) Body height 72 [in_i] 72 [in_i] NORM ([facility]) Body mass index (BMI) [Ratio] 24.7 kg/m2 24.7 k g/m2 NORM ([facility]) Systolic blood pressure 150 mm[Hg] 150 mm[Hg] [facility] Body weight 2918.4 [oz_av] 2918.4 [oz_av] ATHEN A ([facility]) Diastolic blood pressure 86 mm[Hg] 86 mm[Hg] NORM ([facility]) Body height 72 [in_i] 72 [in_i] NORM ([facility]) Body mass index (BMI) [Ratio] 24.7 kg/m2 24.7 k g/m2 NORM ([facility]) Systolic blood pressure 150 mm[Hg] 150 mm[Hg] [facility] Body weight 2918.4 [oz_av] 2918.4 [oz_av] ATHEN A ([facility]) Body height 72 [in_i] 72 [in_i] NORM ([facility]) Body mass index (BMI) [Ratio] 24.7 kg/m2 24.7 k g/m2 NORM ([facility]) Systolic blood pressure 150 mm[Hg] 150 mm[Hg] A [facility] ([facility]) Body weight 2918.4 [oz_av] 2918.4 [oz_av] ATHEN A ([facility]) Diastolic blood pressure 86 mm[Hg] 86 mm[Hg] NORM ([facility]) Diastolic blood pressure 86 mm[Hg] 86 mm[Hg] NORM ([facility]) Body height 72 [in_i] 72 [in_i] NORM ([facility]) Body mass index (BMI) [Ratio] 24.7 kg/m2 24.7 k g/m2 NORM ([facility]) Systolic blood pressure 150 mm[Hg] 150 mm[Hg] [facility] Body weight 2918.4 [oz_av] 2918.4 [oz_av] ATHEN A ([facility]) Diastolic blood pressure 86 mm[Hg] 86 mm[Hg] NORM ([facility]) Body height 72 [in_i] 72 [in_i] NORM ([facility]) Body mass index (BMI) [Ratio] 24.7 kg/m2 24.7 k g/m2 NORM ([facility]) Systolic blood pressure 150 mm[Hg] 150 mm[Hg] A THENA ([facility]) Body weight 2918.4 [oz_av] 2918.4 [oz_av] ATHEN A ([facility]) Diastolic blood pressure 86 mm[Hg] 86 mm[Hg] NORM ([facility]) Body height 72 [in_i] 72 [in_i] NORM ([facility]) Body mass index (BMI) [Ratio] 24.7 kg/m2 24.7 k g/m2 NORM ([facility]) Systolic blood pressure 150 mm[Hg] 150 mm[Hg] A THENA ([facility]) Body weight 2918.4 [oz_av] 2918.4 [oz_av] ATHEN A ([facility]) Diastolic blood pressure 86 mm[Hg] 86 mm[Hg] NORM ([facility]) Body height 72 [in_i] 72 [in_i] NORM ([facility]) Body mass index (BMI) [Ratio] 24.7 kg/m2 24.7 k g/m2 NORM ([facility]) Systolic blood pressure 150 mm[Hg] 150 mm[Hg] A THENA ([facility]) Body weight 2918.4 [oz_av] 2918.4 [oz_av] ATHEN A ([facility]) Body height 72 [in_i] 72 [in_i] NORM ([facility]) Body height 72 [in_i] 72 [in_i] NORM ([facility]) Body height 72 [in_i] 72 [in_i] NORM ([facility]) Body height 72 [in_i] 72 [in_i] NORM ([facility]) Body height 72 [in_i] 72 [in_i] NORM ([facility]) Body height 72 [in_i] 72 [in_i] NORM ([facility]) Body height 72 [in_i] 72 [in_i] NORM ([facility]) Body height 72 [in_i] 72 [in_i] NORM ([facility]) Body height 72 [in_i] 72 [in_i] NORM ([facility]) Body height 72 [in_i] 72 [in_i] NORM ([facility]) Body height 72 [in_i] 72 [in_i] NORM ([facility]) Body height 72 [in_i] 72 [in_i] NORM ([facility]) Body height 72 [in_i] 72 [in_i] NORM ([facility]) Body height 72 [in_i] 72 [in_i] NORM ([facility]) Body height 72 [in_i] 72 [in_i] NORM ([facility]) Body height 72 [in_i] 72 [in_i] NORM ([facility]) Body height 72 [in_i] 72 [in_i] NORM ([facility]) Body height 72 [in_i] 72 [in_i] NORM ([facility]) Body height 72 [in_i] 72 [in_i] NORM ([facility]) Body height 72 [in_i] 72 [in_i] NORM ([facility]) Body height 72 [in_i] 72 [in_i] NORM ([facility]) Body height 72 [in_i] 72 [in_i] NORM ([facility]) Body height 72 [in_i] 72 [in_i] NORM ([facility]) Systolic blood pressure 142 mm[Hg] 142 mm[Hg] A THENA ([facility]) Body weight 2969.6 [oz_av] 2969.6 [oz_av] ATHEN A ([facility]) Diastolic blood pressure 82 mm[Hg] 82 mm[Hg] NORM ([facility]) Body height 72 [in_i] 72 [in_i] NORM ([facility]) Body mass index (BMI) [Ratio] 25.2 kg/m2 25.2 k g/m2 NORM ([facility]) Body mass index (BMI) [Ratio] 25.2 kg/m2 25.2 k g/m2 NORM ([facility]) Systolic blood pressure 142 mm[Hg] 142 mm[Hg] [facility] Diastolic blood pressure 82 mm[Hg] 82 mm[Hg] NORM ([facility]) Body height 72 [in_i] 72 [in_i] NORM ([facility]) Body weight 2969.6 [oz_av] 2969.6 [oz_av] ATHEN A ([facility]) Diastolic blood pressure 82 mm[Hg] 82 mm[Hg] NORM ([facility]) Body height 72 [in_i] 72 [in_i] NORM ([facility]) Body mass index (BMI) [Ratio] 25.2 kg/m2 25.2 k g/m2 NORM ([facility]) Systolic blood pressure 142 mm[Hg] 142 mm[Hg] A THENA ([facility]) Body weight 2969.6 [oz_av] 2969.6 [oz_av] ATHEN A ([facility]) Diastolic blood pressure 82 mm[Hg] 82 mm[Hg] NORM ([facility]) Body height 72 [in_i] 72 [in_i] NORM ([facility]) Body mass index (BMI) [Ratio] 25.2 kg/m2 25.2 k g/m2 NORM ([facility]) Systolic blood pressure 142 mm[Hg] 142 mm[Hg] [facility] Body weight 2969.6 [oz_av] 2969.6 [oz_av] ATHEN A ([facility]) Systolic blood pressure 142 mm[Hg] 142 mm[Hg] [facility]) Body weight 2969.6 [oz_av] 2969.6 [oz_av] ATHEN A ([facility]) Diastolic blood pressure 82 mm[Hg] 82 mm[Hg] NORM ([facility]) Body height 72 [in_i] 72 [in_i] NORM ([facility]) Body mass index (BMI) [Ratio] 25.2 kg/m2 25.2 k g/m2 NORM ([facility]) Diastolic blood pressure 82 mm[Hg] 82 mm[Hg] NORM ([facility]) Body height 72 [in_i] 72 [in_i] NORM ([facility]) Body mass index (BMI) [Ratio] 25.2 kg/m2 25.2 k g/m2 NORM ([facility]) Systolic blood pressure 142 mm[Hg] 142 mm[Hg] A [facility] ([facility]) Body weight 2969.6 [oz_av] 2969.6 [oz_av] ATHEN A ([facility]) Diastolic blood pressure 82 mm[Hg] 82 mm[Hg] NORM ([facility]) Body height 72 [in_i] 72 [in_i] NORM ([facility]) Body mass index (BMI) [Ratio] 25.2 kg/m2 25.2 k g/m2 NORM ([facility]) Systolic blood pressure 142 mm[Hg] 142 mm[Hg] A [facility] ([facility]) Body weight 2969.6 [oz_av] 2969.6 [oz_av] ATHEN A ([facility]) Diastolic blood pressure 82 mm[Hg] 82 mm[Hg] NORM ([facility]) Body height 72 [in_i] 72 [in_i] NORM ([facility]) Body mass index (BMI) [Ratio] 25.2 kg/m2 25.2 k g/m2 NORM ([facility]) Systolic blood pressure 142 mm[Hg] 142 mm[Hg] [facility] Body weight 2969.6 [oz_av] 2969.6 [oz_av] ATHEN A ([facility]) Diastolic blood pressure 82 mm[Hg] 82 mm[Hg] NORM ([facility]) Body height 72 [in_i] 72 [in_i] NORM ([facility]) Body mass index (BMI) [Ratio] 25.2 kg/m2 25.2 k g/m2 NORM ([facility]) Systolic blood pressure 142 mm[Hg] 142 mm[Hg] A [facility] ([facility]) Body weight 2969.6 [oz_av] 2969.6 [oz_av] ATHEN A ([facility]) Diastolic blood pressure 82 mm[Hg] 82 mm[Hg] NORM ([facility]) Body height 72 [in_i] 72 [in_i] NORM ([facility]) Body mass index (BMI) [Ratio] 25.2 kg/m2 25.2 k g/m2 NORM ([facility]) Systolic blood pressure 142 mm[Hg] 142 mm[Hg] [facility] Body weight 2969.6 [oz_av] 2969.6 [oz_av] ATHEN A ([facility]) Diastolic blood pressure 82 mm[Hg] 82 mm[Hg] NORM ([facility]) Body height 72 [in_i] 72 [in_i] NORM ([facility]) Body mass index (BMI) [Ratio] 25.2 kg/m2 25.2 k g/m2 NORM ([facility]) Systolic blood pressure 142 mm[Hg] 142 mm[Hg] A [facility] ([facility]) Body weight 2969.6 [oz_av] 2969.6 [oz_av] ATHEN A ([facility]) Body height 72 [in_i] 72 [in_i] NORM ([facility]) Body mass index (BMI) [Ratio] 25.2 kg/m2 25.2 k g/m2 NORM ([facility]) Systolic blood pressure 142 mm[Hg] 142 mm[Hg] [facility] Body weight 2969.6 [oz_av] 2969.6 [oz_av] ATHEN A ([facility]) Diastolic blood pressure 82 mm[Hg] 82 mm[Hg] NORM ([facility]) Diastolic blood pressure 82 mm[Hg] 82 mm[Hg] NORM ([facility]) Body height 72 [in_i] 72 [in_i] NORM ([facility]) Body mass index (BMI) [Ratio] 25.2 kg/m2 25.2 k g/m2 NORM ([facility]) Systolic blood pressure 142 mm[Hg] 142 mm[Hg] [facility] Body weight 2969.6 [oz_av] 2969.6 [oz_av] ATHEN A ([facility]) Diastolic blood pressure 82 mm[Hg] 82 mm[Hg] NORM ([facility]) Body height 72 [in_i] 72 [in_i] NORM ([facility]) Body mass index (BMI) [Ratio] 25.2 kg/m2 25.2 k g/m2 NORM ([facility]) Systolic blood pressure 142 mm[Hg] 142 mm[Hg] A THENA ([facility]) Body weight 2969.6 [oz_av] 2969.6 [oz_av] ATHEN A ([facility]) Body height 72 [in_i] 72 [in_i] NORM ([facility]) Body height 72 [in_i] 72 [in_i] NORM ([facility]) Body height 72 [in_i] 72 [in_i] NORM ([facility]) Body height 72 [in_i] 72 [in_i] NORM ([facility]) Body height 72 [in_i] 72 [in_i] NORM ([facility]) Body height 72 [in_i] 72 [in_i] NORM ([facility]) Body height 72 [in_i] 72 [in_i] NORM ([facility]) Body height 72 [in_i] 72 [in_i] NORM ([facility]) Body height 72 [in_i] 72 [in_i] NORM ([facility]) Body height 72 [in_i] 72 [in_i] NORM ([facility]) Body height 72 [in_i] 72 [in_i] NORM ([facility]) Body height 72 [in_i] 72 [in_i] NORM ([facility]) Body height 72 [in_i] 72 [in_i] NORM ([facility]) Body height 72 [in_i] 72 [in_i] NORM ([facility]) Body height 72 [in_i] 72 [in_i] NORM ([facility]) Systolic blood pressure 129 mm[Hg] 129 mm[Hg] M EDENT ([facility], [facility]) Body weight 165.00 [lb_av] 165.00 [lb_av] MEDEN T ([facility], [facility]) Diastolic blood pressure 93 mm[Hg] 93 mm[Hg] MEDENT ([facility], [facility]) Heart rate 88 /min 88 /min MEDENT ([facility], [facility]) Respiratory rate 16 /min 16 /min [facility] ( [facility], [facility]) Oxygen saturation in Arterial blood by Pulse oximetry 99 % 99 % [facility] ([facility], [facility]) Body temperature 99.1 [degF] 99.1 [degF] MEDENT ([facility], [facility]) Patient Treatment Plan of Care Planned Activity Planned Date Details Description Data Source (s) cetirizine hydrochloride 10 MG Oral Tablet 08/29/2020 12:00:[address] [place] ([facility]) cetirizine hydrochloride 10 MG Oral Tablet 08/29/2020 12:00:[address] [place] ([facility]) POLYETHYLENE GLYCOL 3350 142 MG/ML Oral Solution [Miralax] NORM ([facility]) Ibuprofen 800 MG Oral Tablet NORM ([facility]) Levothyroxine Sodium 0.05 MG Oral Tablet [Euthyrox] NORM ([facility]) Levothyroxine Sodium 0.025 MG Oral Tablet [Euthyrox] NORM ([facility]) Clindamycin 300 MG Oral Capsule NORM ([facility]) cefdinir 300 MG Oral Capsule NORM ([facility]) Azithromycin 250 MG Oral Tablet NORM ([facility]) POLYETHYLENE GLYCOL 3350 142 MG/ML Oral Solution [Miralax] NORM ([facility]) Ibuprofen 800 MG Oral Tablet NORM ([facility]) Levothyroxine Sodium 0.05 MG Oral Tablet [Euthyrox] NORM ([facility]) Levothyroxine Sodium 0.025 MG Oral Tablet [Euthyrox] NORM ([facility]) Clindamycin 300 MG Oral Capsule NORM ([facility]) Azithromycin 250 MG Oral Tablet NORM ([facility]) POLYETHYLENE GLYCOL 3350 142 MG/ML Oral Solution [Miralax] NORM ([facility]) Ibuprofen 800 MG Oral Tablet NORM ([facility]) Levothyroxine Sodium 0.05 MG Oral Tablet [Euthyrox] NORM ([facility]) Levothyroxine Sodium 0.025 MG Oral Tablet [Euthyrox] NORM ([facility]) Clindamycin 300 MG Oral Capsule NORM ([facility]) Azithromycin 250 MG Oral Tablet NORM ([facility]) POLYETHYLENE GLYCOL 3350 142 MG/ML Oral Solution [Miralax] NORM ([facility]) Ibuprofen 800 MG Oral Tablet NORM ([facility]) Levothyroxine Sodium 0.05 MG Oral Tablet [Euthyrox] NORM ([facility]) Levothyroxine Sodium 0.025 MG Oral Tablet [Euthyrox] NORM ([facility]) d3 50 mcg (1999 ut) caps AT [facility] ([facility]) Clindamycin 300 MG Oral Capsule NORM ([facility]) Azithromycin 250 MG Oral Tablet NORM ([facility]) Ibuprofen 800 MG Oral Tablet NORM ([facility]) Azithromycin 250 MG Oral Tablet NORM ([facility]) Ibuprofen 800 MG Oral Tablet NORM ([facility]) d3 50 mcg (2000 ut) caps AT [facility] ([facility]) Clindamycin 300 MG Oral Capsule NORM ([facility]) Azithromycin 250 MG Oral Tablet NORM ([facility]) Ibuprofen 800 MG Oral Tablet NORM ([facility]) Clindamycin 300 MG Oral Capsule NORM ([facility]) Azithromycin 250 MG Oral Tablet NORM ([facility]) Ibuprofen 800 MG Oral Tablet NORM ([facility]) Clindamycin 300 MG Oral Capsule NORM ([facility]) Azithromycin 250 MG Oral Tablet NORM ([facility]) Ibuprofen 800 MG Oral Tablet NORM ([facility]) Clindamycin 300 MG Oral Capsule NORM ([facility]) Azithromycin 250 MG Oral Tablet NORM ([facility]) Ibuprofen 800 MG Oral Tablet NORM ([facility]) Clindamycin 300 MG Oral Capsule NORM ([facility]) Azithromycin 250 MG Oral Tablet NORM ([facility]) Ibuprofen 800 MG Oral Tablet NORM ([facility]) Clindamycin 300 MG Oral Capsule NORM ([facility]) Azithromycin 250 MG Oral Tablet NORM ([facility]) Ibuprofen 800 MG Oral Tablet NORM ([facility]) fluticasone 113 mcg-salmeterol 14 mcg/actuation breath activated po wdr NORM ([facility]) Clindamycin 300 MG Oral Capsule NORM ([facility]) Azithromycin 250 MG Oral Tablet NORM ([facility]) Ibuprofen 800 MG Oral Tablet NORM ([facility]) Levothyroxine Sodium 0.025 MG Oral Tablet [Euthyrox] NORM ([facility]) Clindamycin 300 MG Oral Capsule NORM ([facility]) Ibuprofen 800 MG Oral Tablet NORM ([facility]) Levothyroxine Sodium 0.025 MG Oral Tablet [Euthyrox] NORM ([facility]) Clindamycin 300 MG Oral Capsule NORM ([facility]) albuterol sulfate HFA 90 mcg/actuation aerosol inhaler NORM ([facility]) Ibuprofen 800 MG Oral Tablet NORM ([facility]) Levothyroxine Sodium 0.025 MG Oral Tablet [Euthyrox] NORM ([facility]) Clindamycin 300 MG Oral Capsule NORM ([facility]) albuterol sulfate HFA 90 mcg/actuation aerosol inhaler NORM ([facility])
[2021-07-26] MEDS ORDERED: ACETAMINOPHEN 325 MG TAB PO ONE (20:45)
--- OUTSIDE RECORDS SUMMARY | 2021-07-27 02:10 | CCD ---
Author Author [facility] Organization [facility] Address Unknown Phone Unavailable Care Team Providers [facility] Agent Name Role Phone Davis, Sarah FOAMITE MIXER Unavailable Unavailable Davis, Sarah FOAMITE MIXER Unavailable Unavailable Davis, Sarah FOAMITE MIXER Unavailable Unavailable Davis, Sarah FOAMITE MIXER Unavailable Unavailable Davis, Sarah FOAMITE MIXER Unavailable Unavailable Davis, Sarah FOAMITE MIXER Unavailable Unavailable Davis, Sarah FOAMITE MIXER Unavailable Unavailable Davis, Sarah FOAMITE MIXER Unavailable Unavailable Davis, Sarah FOAMITE MIXER Unavailable Unavailable Davis, Sarah FOAMITE MIXER Unavailable Unavailable Davis, Sarah FOAMITE MIXER Unavailable Unavailable Davis, Sarah FOAMITE MIXER Unavailable Unavailable Davis, Sarah FOAMITE MIXER Unavailable Unavailable SHRESTHA, AFSHAN BRIAN RPA-C Unavailable [...] SHRESTHA, AFSHAN BRIAN RPA-C Unavailable Unavailable SHRESTHA, FASHAN BRIAN RPA-C Unavailable Unavailable SHRESTHA, AFSHAN BRIAN [...] Taina Unavailable Unavailable Janet, Taina Unavailable Unavailable Alba HOANG MD Unavailable Unavailable [...] Unavailable Marley, Ayah Teena PA Unavailable Unavailable Malrey, Ayah Teena PA Unavailable Unavailable Marley, Ayah [...] is protected by Article 27-F of the [facility] Public Health law. If you continue you may have access to information: Regarding HIV / AIDS; Provided by facilities licensed or operated by the [facility] Office of Mental Health; or Provided by the [facility] Office for People With Developmental Disabilities. If such information is present, then the following [facility] mandated warning applies: This information has been [...] law may result in a fine or snf sentence or both. A general authorization for the release of medical or other information is NOT sufficient authorization for further disc losure. Family History Family Member Name Family Member Gender Family Member Status Date o f Status Description Data Source(s) Unknown Unknown Problem MEDENT ([facility], [facility]) father Unknown Unknown Problem MEDENT ([facility] Encounters Encounter Providers Location Date Indications Data Source(s ) VALORIE Watts: [address], [place] [address], Ph. Attender: BRIAN EUGENE [facility] Medical 07/22/2021 12:00:00 AM EST NORM ([facility]) Outpatient Attender: Sarah odonnell 07/20/2021 09:25:00 AM EST MEDENT ([facility], [facility]) Outpatient Attender: Manjeet MACDONALD 05/24 09:01:45 PM EDT - 06/10/2021 09:22:55 PM EDT DocuTap ([facility] ) VALORIE Watts: [address], [place] [address], Ph. Attender: BRIAN EUGENE [facility] Medical 06/03/2021 12:00:00 AM EDT NORM ([facility]) VALORIE Watts: [address], [place] [address], Ph. Attender: BRIAN EUGENE [facility] Medical 06/03/2021 12:00:00 AM EDT NORM ([facility]) Brian Shrestha, RPA-C: [address], [place] [address], Ph. Attender: BRIAN SHRESTHA RPA-C [facility] Medical 04/16/2021 12:00:00 AM EDT NORM ([facility]) Brian Shrestha, RPA-C: [address], [place] [address], Ph. Attender: BRIAN SHRESTHA RPA-C [facility] Medical 04/16/2021 12:00:00 AM EDT NORM ([facility]) Brian Shrestha, RPA-C: [address], [place] [address], Ph. Attender: BRIAN SHRESTHA RPA-C [facility] Medical 04/16/2021 12:00:00 AM EDT NORM ([facility]) Brian Shrestha, RPA-C: [address], [place] [address], Ph. Attender: BRIAN SHRESTHA RPA-C [facility] Medical 04/02/2021 12:00:00 AM EDT NORM ([facility]) Brian Shrestha, RPA-C: [address], [place] [address], Ph. Attender: BRIAN SHRESTHA RPA-C [facility] Medical 04/02/2021 12:00:00 AM EDT NORM ([facility]) Brian Shrestha, RPA-C: [address], [place] [address], Ph. Attender: BRIAN SHRESTHA RPA-C [facility] Medical 04/02/2021 12:00:00 AM EDT NORM ([facility]) Brian Shrestha RPA-C: [address], [place] [address], Ph. Attender: BRIAN SHRESTHA RPA-C [facility] Medical 04/02/2021 12:00:00 AM EDT NORM ([facility]) Brian Shrestha RPA-C: [address], [place] [address], Ph. Attender: BRIAN SHRESTHA RPA-C [facility] Medical 03/11/2021 12:00:00 AM EDT NORM ([facility]) Brian Shrestha RPA-C: [address], [place] [address], Ph. Attender: BRIAN SHRESTHA RPA-C [facility] Medical 03/11/2021 12:00:00 AM EDT NORM ([facility]) Brian Shrestha RPA-C: [address], [place] [address], Ph. Attender: BRIAN SHRESTHA RPA-C [facility] Medical 03/11/2021 12:00:00 AM EDT NORM ([facility]) Brian Shrestha, RPA-C: [address], [place] [address], Ph. Attender: BRIAN SHRESTHA RPA-C [facility] Medical 03/11/2021 12:00:00 AM EDT NORM ([facility]) Brian Shrestha RPA-C: [address], [place] [address], Ph. Attender: BRIAN KENYONC [facility] Medical 03/11/2021 12:00:00 AM EDT NORM ([facility]) Outpatient Attender: Sarah odonnell 03/05/2021 03:35:00 PM EDT MEDENT ([facility], [facility]) Outpatient Attender: ROSEMARIE CLIFTON MD 03/01 03:14:16 PM EDT - 03/01/2021 04:34:40 PM EDT DocuTap ([facility] ) Brian Shrestha RPA-C: [address], [place] [address], Ph. Attender: BRIAN EUGENE [facility] Medical 01/15/2021 12:00:00 AM EDT NORM ([facility]) Brian Shrestha RPA-C: [address], [place] [address], Ph. Attender: BRIAN EUGENE [facility] Medical 01/15/2021 12:00:00 AM EDT NORM ([facility]) Brian Shrestha RPA-C: [address], [place] [address], Ph. Attender: BRIAN KENYONC [facility] Medical 01/15/2021 12:00:00 AM EDT NORM ([facility]) Brian Shrestha RPA-C: [address], [place] [address], Ph. Attender: BRIAN SHRESTHA RPA-C [facility] Medical 01/15/2021 12:00:00 AM EDT NORM ([facility]) Brian Shrestha RPA-C: [address], [place] [address], Ph. Attender: BRIAN KENYONC [facility] Medical 01/15/2021 12:00:00 AM EDT NORM ([facility]) Brian Shrestha RPA-C: [address], [place] [address], Ph. Attender: BRIAN KENYONC [facility] Medical 01/15/2021 12:00:00 AM EDT NORM ([facility]) Marielos Gonzales MD: [address], [place] [address], Ph. Attender: Marielos Gonzales [facility] Medical 01/08/2021 12:00:00 AM EDT NORM ([facility]) Marielos Gonzales MD: [address], [place] [address], Ph. Attender: Marielos Gonzales [facility] Medical 01/08/2021 12:00:00 AM EDT NORM ([facility]) Marielos Gonzales MD: [address], [place] [address], Ph. Attender: Marielos Gonzales [facility] Medical 01/08/2021 12:00:00 AM EDT NORM ([facility]) Marielos Gonzales MD: [address], [place] [address], Ph. Attender: Taina Janet [facility] Medical 01/08/2021 12:00:00 AM EDT NORM ([facility]) Marielos Gonzales MD: [address], [place] [address], Ph. Attender: Marielos Gonzales [facility] Medical 01/08/2021 12:00:00 AM EDT NORM ([facility]) Marielos Gonzales MD: [address], [place] [address], Ph. Attender: Marielos Gonzales [facility] Medical 01/08/2021 12:00:00 AM EDT NORM ([facility]) Marielos Gonzales MD: [address], [place] [address], Ph. Attender: Marielos Gonzales [facility] Medical 01/08/2021 12:00:00 AM EDT NORM ([facility]) Outpatient Attender: MELODY Boone/Ananda/Nam/Celi indl 11/07/2020 01:00:00 PM EDT MEDTONY ([facility], ) Shereen Lan RPA-C: [address], [place] [address], Ph. Attender: SHEREEN LAN [facility] Medical 10/26/2020 12:00:00 AM EST NORM ([facility]) Shereen Lan RPA-C: [address], [place] [address], Ph. Attender: SHEREEN LAN [facility] Medical 10/26/2020 12:00:00 AM EST NORM ([facility]) Shereen Lan RPA-C: [address], [place] [address], Ph. Attender: SHEREEN LAN [facility] Medical 10/26/2020 12:00:00 AM EST NORM ([facility]) Shereen Lan RPA-C: [address], [place] [address], Ph. Attender: SHEREEN LAN [facility] Medical 10/26/2020 12:00:00 AM EST NORM ([facility]) Shereen Lan RPA-C: [address], [place] [address], Ph. Attender: SHEREEN LAN [facility] Medical 10/26/2020 12:00:00 AM EST NORM ([facility]) Shereen Lan RPA-C: [address], [place] [address], Ph. Attender: SHEREEN LAN [facility] Medical 10/26/2020 12:00:00 AM EST NORM ([facility]) Shereen Lan RPA-C: [address], [place] [address], Ph. Attender: SHEREEN LAN [facility] Medical 10/26/2020 12:00:00 AM EST NORM ([facility]) Shereen Lan RPA-C: [address], [place] [address], Ph. Attender: SHEREEN LAN [facility] Medical 10/26/2020 12:00:00 AM EST NORM ([facility]) Shereen Lan RPA-C: [address], [place] [address], Ph. Attender: SHEREEN LAN [facility] Medical 10/26/2020 12:00:00 AM EST NORM ([facility]) KOSTAS MendiolaC: [address], [address], [place] [address], Ph. Attender: SHEREEN LAN [facility] Medical 10/22/2020 12:00:00 AM EST NORM ([facility]) KOSTAS MendiolaC: [address], [address], [place] [address], Ph. Attender: SHEREEN LAN [facility] Medical 10/22/2020 12:00:00 AM EST NORM ([facility]) KOSTAS MendiolaC: [address], [address], [place] [address], Ph. Attender: SHEREEN LAN [facility] Medical 10/22/2020 12:00:00 AM EST NORM ([facility]) KOSTAS MendiolaC: [address], [address], [place] [address], Ph. Attender: SHEREEN LAN [facility] Medical 10/22/2020 12:00:00 AM EST NORM ([facility]) KOSTAS MendiolaC: [address], [address], [place] [address], Ph. Attender: SHEREEN LAN [facility] Medical 10/22/2020 12:00:00 AM EST NORM ([facility]) Shereen Lan RPA-C: [address], [address], [place] [address], Ph. Attender: SHEREEN LAN [facility] Medical 10/22/2020 12:00:00 AM EST NORM ([facility]) Shereen Lan RPA-C: [address], [address], [place] [address], Ph. Attender: SHEREEN LAN [facility] Medical 10/22/2020 12:00:00 AM EST NORM ([facility]) KOSTAS MendiolaC: [address], [address], [place] [address], Ph. Attender: SHEREEN LAN [facility] Medical 10/22/2020 12:00:00 AM EST NORM ([facility]) KOSTAS MendiolaC: [address], [address], [place] [address], Ph. Attender: SHEREEN LAN [facility] Medical 10/22/2020 12:00:00 AM EST NORM ([facility]) Shereen Lan RPA-C: [address], [address], [place] [address], Ph. Attender: SHEREEN LAN [facility] Medical 10/22/2020 12:00:00 AM EST NORM ([facility]) Shereen Lan RPA-C: [address], [address], [place] [address], Ph. Attender: SHEREEN LAN [facility] Medical 10/17/2020 12:00:00 AM EST NORM ([facility]) Shereen Lan RPA-C: [address], [address], [place] [address], Ph. Attender: SHEREEN LAN [facility] Medical 10/17/2020 12:00:00 AM EST NORM ([facility]) Shereen Lan RPA-C: [address], [address], [place] [address], Ph. Attender: SHEREEN LAN [facility] Medical 10/17/2020 12:00:00 AM EST NORM ([facility]) KOSTAS MendiolaC: [address], [address], [place] [address], Ph. Attender: SHEREEN LAN [facility] Medical 10/17/2020 12:00:00 AM EST NORM ([facility]) KOSTAS MendiolaC: [address], [address], [place] [address], Ph. Attender: SHEREEN LAN [facility] Medical 10/17/2020 12:00:00 AM EST NORM ([facility]) Shereen Lan RPA-C: [address], [address], [place] [address], Ph. Attender: SHEREEN LAN [facility] Medical 10/17/2020 12:00:00 AM EST NORM ([facility]) Shereen Lan RPA-C: [address], [address], [place] [address], Ph. Attender: SHEREEN LAN [facility] Medical 10/17/2020 12:00:00 AM EST NORM ([facility]) Shereen Lan RPA-C: [address], [address], [place] [address], Ph. Attender: SHEREEN LAN [facility] Medical 10/17/2020 12:00:00 AM EST NORM ([facility]) Shereen Lan RPA-C: [address], [address], [place] [address], Ph. Attender: SHEREEN LAN [facility] Medical 10/17/2020 12:00:00 AM EST NORM ([facility]) Shereen Lan RPA-C: [address], [address], [place] [address], Ph. Attender: SHEREEN LAN [facility] Medical 10/17/2020 12:00:00 AM EST NORM ([facility]) Shereen Lan RPA-C: [address], [address], [place] [address], Ph. Attender: SHEREEN LAN [facility] Medical 10/17/2020 12:00:00 AM EST NORM ([facility]) Shereen Lan RPA-C: [address], [address], [place] [address], Ph. Attender: SHEREEN LAN [facility] Medical 09/21/2020 12:00:00 AM EST NORM ([facility]) Shereen Lan RPA-C: [address], [place] [address], Ph. Attender: SHEREEN LAN [facility] Medical 09/21/2020 12:00:00 AM EST NORM ([facility]) Shereen aLn RPA-C: [address], [place] [address], Ph. Attender: SHEREEN LAN [facility] Medical 09/21/2020 12:00:00 AM EST NORM ([facility]) Shereen Lan RPA-C: [address], [place] [address], Ph. Attender: SHEREEN LAN [facility] Medical 09/21/2020 12:00:00 AM EST NORM ([facility]) KOSTAS MendiolaC: [address], [place] [address], Ph. Attender: SHEREEN LAN [facility] Medical 09/21/2020 12:00:00 AM EST NORM ([facility]) KOSTAS MendiolaC: [address], [place] [address], Ph. Attender: SHEREEN LAN [facility] Medical 09/21/2020 12:00:00 AM EST NORM ([facility]) Shereen Lan RPA-C: [address], [place] [address], Ph. Attender: SHEREEN LAN [facility] Medical 09/21/2020 12:00:00 AM EST NORM ([facility]) Shereen Lan RPA-C: [address], [address], [place] [address], Ph. Attender: SHEREEN LAN [facility] Medical 09/21/2020 12:00:00 AM EST NORM ([facility]) Shereen Lan RPA-C: [address], [address], [place] [address], Ph. Attender: SHEREEN LAN [facility] Medical 09/21/2020 12:00:00 AM EST NORM ([facility]) KOSTAS MendiolaC: [address], [place] [address], Ph. Attender: SHEREEN LAN [facility] Medical 09/21/2020 12:00:00 AM EST NORM ([facility]) KOSTAS MendiolaC: [address], [address], [place] [address], Ph. Attender: SHEREEN LAN [facility] Medical 09/21/2020 12:00:00 AM EST NORM ([facility]) KOSTAS MendiolaC: [address], [address], [place] [address], Ph. Attender: SHEREEN LAN [facility] Medical 09/21/2020 12:00:00 AM EST NORM ([facility]) Chiqui Madera PA-C: [address], [place] [address], Ph. Attender: Chiqui MACDONALD [facility] Medical 09/06/2020 12:00:00 AM EST NORM ([facility]) Chiqui Madera PA-C: [address], [place] [address], Ph. Attender: Chiqui MACDONALD [facility] Medical 09/06/2020 12:00:00 AM EST NORM ([facility]) Chiqui Madera PA-C: [address], [place] [address], Ph. Attender: Chiqui MACDONALD [facility] Medical 09/06/2020 12:00:00 AM EST NORM ([facility]) Chiqui Madera PA-C: [address], [place] [address], Ph. Attender: Chiqui MACDONALD [facility] Medical 09/06/2020 12:00:00 AM EST NORM ([facility]) Chiqui Madera PA-C: [address], [place] [address], Ph. Attender: Chiqui MACDONALD [facility] Medical 09/06/2020 12:00:00 AM EST NORM ([facility]) Chiqui Madera PA-C: [address], [place] [address], Ph. Attender: Chiqui MACDONALD [facility] Medical 09/06/2020 12:00:00 AM EST NORM ([facility]) Chiqui Madera PA-C: [address], [place] [address], Ph. Attender: Chiqui MACDONALD [facility] Medical 09/06/2020 12:00:00 AM EST NORM ([facility]) Chiqui Madera PA-C: [address], [place] [address], Ph. Attender: Chiqui MACDONALD [facility] Medical 09/06/2020 12:00:00 AM EST NORM ([facility]) Chiqui Madera PA-C: [address], [place] [address], Ph. Attender: Chiqui MACDONALD [facility] Medical 09/06/2020 12:00:00 AM EST NORM ([facility]) Chiqui Madera PA-C: [address], [place] [address], Ph. Attender: Chiqui MACDONALD [facility] Medical 09/06/2020 12:00:00 AM EST NORM ([facility]) Chiqui Madera PA-C: [address], [place] [address], Ph. Attender: Chiqui MACDONALD [facility] Medical 09/06/2020 12:00:00 AM EST NORM ([facility]) Chiqui Madera PA-C: [address], [place] [address], Ph. Attender: Chiqui MACDONALD [facility] Medical 09/06/2020 12:00:00 AM EST NORM ([facility]) Chiqui Madera PA-C: [address], [place] [address], Ph. Attender: Chiqui MACDONALD [facility] Medical 09/06/2020 12:00:00 AM EST NORM ([facility]) Chiqui Madera PA-C: [address], [place] [address], Ph. Attender: Chiqui MACDONALD [facility] Medical 08/30/2020 12:00:00 AM EST NORM ([facility]) Chiqui Madera PA-C: [address], [place] [address], Ph. Attender: Chiqui MACDONALD [facility] Medical 08/30/2020 12:00:00 AM EST NORM ([facility]) Chiqui Madera PA-C: [address], [place] [address], Ph. Attender: Chiqui MACDONALD [facility] Medical 08/30/2020 12:00:00 AM EST NORM ([facility]) Chiqui Madera PA-C: [address], [place] [address], Ph. Attender: Chiqui MACDONALD [facility] Medical 08/30/2020 12:00:00 AM EST NORM ([facility]) Chiqui Madera PA-C: [address], [place] [address], Ph. Attender: Chiqui MACDONALD [facility] Medical 08/30/2020 12:00:00 AM EST NORM ([facility]) Chiqui Madera PA-C: [address], [place] [address], Ph. Attender: Chiqui [facility]DON[facility]D [facility] Medical 08/30/2020 12:00:00 AM EST NORM ([facility]) Chiqui Madera PA-C: [address], [place] [address], Ph. Attender: Chiqui [facility]DON[facility]D [facility] Medical 08/30/2020 12:00:00 AM EST NORM ([facility]) Chiqui Madera PA-C: [address], [place] [address], Ph. Attender: Chiqui [facility]DONALD [facility] Medical 08/30/2020 12:00:00 AM EST NORM ([facility]) Chiqui Madera PA-C: [address], [place] [address], Ph. Attender: Chiqui [facility] Medical 08/30/2020 12:00:00 AM EST NORM ([facility]) Chiqui Madera PA-C: [address], [place] [address], Ph. Attender: Chiqui [facility]D [facility] Medical 08/30/2020 12:00:00 AM EST NORM ([facility]) Chiqui Madera PA-C: [address], [place] [address], Ph. Attender: Chiqui [facility] [facility] 08/30/2020 12:00:00 AM EST NORM ([facility]) Chiqui Madera PA-C: [address], [place] [address], Ph. Attender: Chiqui [facility] Medical 08/30/2020 12:00:00 AM EST NORM ([facility]) Chiqui Madera PA-C: [address], [place] [address], Ph. Attender: Chiqui [facility] Medical 08/30/2020 12:00:00 AM EST NORM ([facility]) Chiqui Madera PA-C: [address], [place] [address], Ph. Attender: Chiqui [facility] Medical 08/30/2020 12:00:00 AM EST NORM ([facility]) Chiqui Madera PA-C: [address], [place] [address], Ph. Attender: Chiqui [facility] Medical 08/30/2020 12:00:00 AM EST NORM ([facility]) Chiqui Madera PA-C: [address], [place] [address], Ph. Attender: Chiqui [facility] Medical 08/30/2020 12:00:00 AM EST NORM ([facility]) Chiqui Madera PA-C: [address], [place] [address], Ph. Attender: Chiqui [facility] Medical 08/30/2020 12:00:00 AM EST NORM ([facility]) Chiqui Madera PA-C: [address], [place] [address], Ph. Attender: Chiqui [facility] Medical 08/30/2020 12:00:00 AM EST NORM ([facility]) Chiqui Madera PA-C: [address], [place] [address], Ph. Attender: Chiqui [facility] Medical 08/30/2020 12:00:00 AM EST NORM ([facility]) Chiqui Madera PA-C: [address], [place] [address], Ph. Attender: Chiqui [facility] Medical 08/30/2020 12:00:00 AM EST NORM ([facility]) Chiqui Madera PA-C: [address], [place] [address], Ph. Attender: Chiqui [facility] Medical 08/30/2020 12:00:00 AM EST NORM ([facility]) Chiqui Madera PA-C: [address], [place] [address], Ph. Attender: Chiqui [facility] Medical 08/30/2020 12:00:00 AM EST NORM ([facility]) Chiqui Madera PA-C: [address], [place] [address], Ph. Attender: Chiqui [facility] Medical 08/30/2020 12:00:00 AM EST NORM ([facility]) Chiqui Madera PA-C: [address], [place] [address], Ph. Attender: Chiqui [facility] Medical 08/30/2020 12:00:00 AM EST NORM ([facility]) Chiqui Madera PA-C: [address], [place] [address], Ph. Attender: Chiqui [facility] Medical 08/30/2020 12:00:00 AM EST NORM ([facility]) Chiqui Madera PA-C: [address], [place] [address], Ph. Attender: Chiqui [facility] Medical 08/30/2020 12:00:00 AM EST NORM ([facility]) Chiqui Madera PA-C: [address], [place] [address], Ph. Attender: Chiqui [facility] Medical 08/30/2020 12:00:00 AM EST NORM ([facility]) JOSE SpencerC: [address], [place] [address], Ph. Attender: Chiqui [facility] Medical 08/30/2020 12:00:00 AM EST NORM ([facility]) KOSTAS MendiolaC: [address], [place] [address], Ph. Attender: [facility] Medical 08/29/2020 12:00:00 AM EST NORM ([facility]) KOSTAS MendiolaC: [address], [place] [address], Ph. Attender: [facility] Medical 08/29/2020 12:00:00 AM EST NORM ([facility]) KOSTAS MendiolaC: [address], [place] [address], Ph. Attender: [facility] Medical 08/29/2020 12:00:00 AM EST NORM ([facility]) KOSTAS MendiolaC: [address], [place] [address], Ph. Attender: [facility] Medical 08/29/2020 12:00:00 AM EST NORM ([facility]) KOSTAS MendiolaC: [address], [place] [address], Ph. Attender: [facility] Medical 08/29/2020 12:00:00 AM EST NORM ([facility]) Shereen Lan RPA-C: [address], [place] [address], Ph. Attender: [facility] Medical 08/29/2020 12:00:00 AM EST NORM ([facility]) Shereen Lan RPA-C: [address], [place] [address], Ph. Attender: [facility] Medical 08/29/2020 12:00:00 AM EST NORM ([facility]) KOSTAS MendiolaC: [address], [place] [address], Ph. Attender: [facility] Medical 08/29/2020 12:00:00 AM EST NORM ([facility]) KOSTAS MendiolaC: [address], [place] [address], Ph. Attender: [facility] Medical 08/29/2020 12:00:00 AM EST NORM ([facility]) Shereen Lan RPA-C: [address], [address], [place] [address], Ph. Attender: [facility] Medical 08/29/2020 12:00:00 AM EST NORM ([facility]) Shereen Lan RPA-C: [address], [place] [address], Ph. Attender: [facility] Medical 08/29/2020 12:00:00 AM EST NORM ([facility]) KOSTAS MendiolaC: [address], [place] [address], Ph. Attender: [facility] Medical 08/29/2020 12:00:00 AM EST NORM ([facility]) KOSTAS MendiolaC: [address], [place] [address], Ph. Attender: [facility] Medical 08/29/2020 12:00:00 AM EST NORM ([facility]) KOSTAS MendiolaC: [address], [place] [address], Ph. Attender: [facility] Medical 08/29/2020 12:00:00 AM EST NORM ([facility]) KOSTAS MendiolaC: [address], [place] [address], Ph. Attender: [facility] Medical 08/29/2020 12:00:00 AM EST NORM ([facility]) Outpatient Attender: Teena sandoval 08/21/2020 02:15:00 PM EST MEDENT ([facility], [facility]) Medications Medication Brand Name Start Date Product Form Dose Route Admi nistrative Instructions Pharmacy Instructions Status Indications Reaction Description Data Source(s) cetirizine hydrochloride 10 MG Oral Tablet cetirizine 10 mg tablet cetirizine 10 mg tablet 08/29/2020 12:00:00 AM EST complete d cetirizine hydrochloride 10 MG Oral Tablet NORM ([facility]) cetirizine hydrochloride 10 MG Oral Tablet cetirizine 10 mg tablet cetirizine 10 mg tablet 08/29/2020 12:00:00 AM EST complete d cetirizine hydrochloride 10 MG Oral Tablet NORM ([facility]) 60 ACTUAT Albuterol 0.09 MG/ACTUAT Metered Dose Inhaler Albu terol Sulfate HFA 08/21/2020 12:00:00 AM EST RESPIRATORY active MEDENT ([facility], [facility]) Ibuprofen 800 MG Oral Tablet ibuprofen 8 00 mg tablet TAKE 1 TABLET BY MOUTH EVERY 6 TO 8 HOURS NEEDED ibuprofen 800 mg tablet TAKE 1 TABLET BY MOUTH EVERY 6 TO 8 HOURS NEEDED completed ibuprofen 800 MG Oral Tablet NORM ([facility]) Azithromycin 250 MG Oral Tablet azithrom ycin [...] completed azithromycin 250 MG Oral Tablet NORM ([facility]) Levothyroxine Sodium 0.025 MG Oral Table t [Euthyrox] Euthyrox 25 mcg tablet TAKE 1 TABLET BY MOUTH ONCE DAILY Euthyrox 25 mcg tablet TAKE 1 TABLET BY MOUTH ONCE DAILY completed levothy roxine sodium 0.025 MG Oral Tablet [Euthyrox] NORM ([facility]) POLYETHYLENE GLYCOL 3350 142 MG/ML Oral Solution [Miralax] Miralax 17 gram/dose oral powder Take by oral route. Miralax 17 gram/dose oral powder Take by oral route. completed polyeth ylene glycol 3350 44108 MG Powder for Oral Solution [Miralax] NORM ([facility]) Clindamycin 300 MG Oral Capsule clindamy nestor HCl 300 mg capsule TAKE 1 CAPSULE BY MOUTH THREE TIMES DAILY FOR 10 DAYS clindamycin HCl 300 mg capsule TAKE 1 CAPSULE BY MOUTH THREE TIMES DAILY FOR 10 DAYS completed clindamycin 300 MG Oral Capsule NORM ([facility]) Ibuprofen 800 MG Oral Tablet ibuprofen 8 00 mg tablet TAKE 1 TABLET BY MOUTH EVERY 6 TO 8 HOURS NEEDED ibuprofen 800 mg tablet TAKE 1 TABLET BY MOUTH EVERY 6 TO 8 HOURS NEEDED completed ibuprofen 800 MG Oral Tablet NORM ([facility]) Azithromycin 250 MG Oral Tablet azithrom ycin [...] completed azithromycin 250 MG Oral Tablet NORM ([facility]) Clindamycin 300 MG Oral Capsule clindamycin HCl 300 mg capsule clindamycin HCl 300 mg capsule completed clindam ycin 300 MG Oral Capsule NORM ([facility]) Clindamycin 300 MG Oral Capsule clindamycin HCl 300 mg capsule clindamycin HCl 300 mg capsule completed clindam ycin 300 MG Oral Capsule NORM ([facility]) Azithromycin 250 MG Oral Tablet [...] completed azithromycin 250 MG Oral Tablet NORM ([facility]) Levothyroxine Sodium 0.05 MG Oral Tablet [Euthyrox] Euthyrox 50 mcg tablet TAKE 1 TABLET BY MOUTH ONCE DAILY Euthyrox 50 mcg tablet TAKE 1 TABLET BY MOUTH ONCE DAILY completed levothy roxine sodium 0.05 MG Oral Tablet [Euthyrox] NORM ([facility]) Levothyroxine Sodium 0.025 MG Oral Table t [Euthyrox] Euthyrox 25 mcg tablet TAKE 1 TABLET BY MOUTH ONCE DAILY Euthyrox 25 mcg tablet TAKE 1 TABLET BY MOUTH ONCE DAILY completed levothy roxine sodium 0.025 MG Oral Tablet [Euthyrox] NORM ([facility]) Ibuprofen 800 MG Oral Tablet ibuprofen 8 00 mg tablet TAKE 1 TABLET BY MOUTH EVERY 6 TO 8 HOURS NEEDED ibuprofen 800 mg tablet TAKE 1 TABLET BY MOUTH EVERY 6 TO 8 HOURS NEEDED completed ibuprofen 800 MG Oral Tablet NORM ([facility]) Azithromycin 250 MG Oral Tablet azithrom ycin [...] completed azithromycin 250 MG Oral Tablet NORM ([facility]) Clindamycin 300 MG Oral Capsule clindamycin HCl 300 mg capsule clindamycin HCl 300 mg capsule completed clindam ycin 300 MG Oral Capsule NORM ([facility]) Clindamycin 300 MG Oral Capsule clindamycin HCl 300 mg capsule clindamycin HCl 300 mg capsule completed clindam ycin 300 MG Oral Capsule NORM ([facility]) Levothyroxine Sodium 0.05 MG Oral Tablet [Euthyrox] Euthyrox 50 mcg tablet TAKE 1 TABLET BY MOUTH ONCE DAILY Euthyrox 50 mcg tablet TAKE 1 TABLET BY MOUTH ONCE DAILY completed levothy roxine sodium 0.05 MG Oral Tablet [Euthyrox] NORM ([facility]) Clindamycin 300 MG Oral Capsule clindamycin HCl 300 mg capsule clindamycin HCl 300 mg capsule completed clindam ycin 300 MG Oral Capsule NORM ([facility]) Azithromycin 250 MG Oral Tablet [...] completed azithromycin 250 MG Oral Tablet NORM ([facility]) Ibuprofen 800 MG Oral Tablet ibuprofen 8 00 mg tablet TAKE 1 TABLET BY MOUTH EVERY 6 TO 8 HOURS NEEDED ibuprofen 800 mg tablet TAKE 1 TABLET BY MOUTH EVERY 6 TO 8 HOURS NEEDED completed ibuprofen 800 MG Oral Tablet NORM ([facility]) Ibuprofen 800 MG Oral Tablet ibuprofen 8 00 mg tablet TAKE 1 TABLET BY MOUTH EVERY 6 TO 8 HOURS NEEDED ibuprofen 800 mg tablet TAKE 1 TABLET BY MOUTH EVERY 6 TO 8 HOURS NEEDED completed ibuprofen 800 MG Oral Tablet NORM ([facility]) Ibuprofen 800 MG Oral Tablet ibuprofen 8 00 mg tablet TAKE 1 TABLET BY MOUTH EVERY 6 TO 8 HOURS NEEDED ibuprofen 800 mg tablet TAKE 1 TABLET BY MOUTH EVERY 6 TO 8 HOURS NEEDED completed ibuprofen 800 MG Oral Tablet NORM ([facility]) Azithromycin 250 MG Oral Tablet azithrom ycin [...] completed azithromycin 250 MG Oral Tablet NORM ([facility]) Clindamycin 300 MG Oral Capsule clindamy nestor HCl 300 mg capsule TAKE 1 CAPSULE BY MOUTH THREE TIMES DAILY FOR 10 DAYS clindamycin HCl 300 mg capsule TAKE 1 CAPSULE BY MOUTH THREE TIMES DAILY FOR 10 DAYS completed clindamycin 300 MG Oral Capsule NORM ([facility]) Clindamycin 300 MG Oral Capsule clindamy nestor HCl 300 mg capsule TAKE 1 CAPSULE BY MOUTH THREE TIMES DAILY FOR 10 DAYS clindamycin HCl 300 mg capsule TAKE 1 CAPSULE BY MOUTH THREE TIMES DAILY FOR 10 DAYS completed clindamycin 300 MG Oral Capsule NORM ([facility]) Clindamycin 300 MG Oral Capsule clindamycin HCl 300 mg capsule clindamycin HCl 300 mg capsule completed clindam ycin 300 MG Oral Capsule NORM ([facility]) Levothyroxine Sodium 0.025 MG Oral Table t [Euthyrox] Euthyrox 25 mcg tablet TAKE 1 TABLET BY MOUTH ONCE DAILY Euthyrox 25 mcg tablet TAKE 1 TABLET BY MOUTH ONCE DAILY completed levothy roxine sodium 0.025 MG Oral Tablet [Euthyrox] NORM ([facility]) Azithromycin 250 MG Oral Tablet azithrom ycin [...] completed azithromycin 250 MG Oral Tablet NORM ([facility]) Levothyroxine Sodium 0.025 MG Oral Table t [Euthyrox] Euthyrox 25 mcg tablet TAKE 1 TABLET BY MOUTH ONCE DAILY Euthyrox 25 mcg tablet TAKE 1 TABLET BY MOUTH ONCE DAILY completed levothy roxine sodium 0.025 MG Oral Tablet [Euthyrox] NORM ([facility]) Clindamycin 300 MG Oral Capsule clindamy nestor HCl 300 mg capsule TAKE 1 CAPSULE BY MOUTH THREE TIMES DAILY FOR 10 DAYS clindamycin HCl 300 mg capsule TAKE 1 CAPSULE BY MOUTH THREE TIMES DAILY FOR 10 DAYS completed clindamycin 300 MG Oral Capsule NORM ([facility]) POLYETHYLENE GLYCOL 3350 142 MG/ML Oral Solution [Miralax] Miralax 17 gram/dose oral powder Take by oral route. Miralax 17 gram/dose oral powder Take by oral route. completed polyeth ylene glycol 3350 21658 MG Powder for Oral Solution [Miralax] NORM ([facility]) Azithromycin 250 MG Oral Tablet azithrom ycin [...] completed azithromycin 250 MG Oral Tablet NORM ([facility]) cefdinir 300 MG Oral Capsule cefdinir 30 0 mg capsule TAKE 1 CAPSULE BY MOUTH EVERY 12 HOURS FOR 5 DAYS cefdinir 300 mg capsule TAKE 1 CAPSULE B Y MOUTH EVERY 12 HOURS FOR 5 DAYS completed ce fdinir 300 MG Oral Capsule NORM ([facility]) Azithromycin 250 MG Oral Tablet [...] completed azithromycin 250 MG Oral Tablet NORM ([facility]) Clindamycin 300 MG Oral Capsule clindamycin HCl 300 mg capsule clindamycin HCl 300 mg capsule completed clindam ycin 300 MG Oral Capsule NORM ([facility]) Levothyroxine Sodium 0.025 MG Oral Table t [Euthyrox] Euthyrox 25 mcg tablet TAKE 1 TABLET BY MOUTH ONCE DAILY Euthyrox 25 mcg tablet TAKE 1 TABLET BY MOUTH ONCE DAILY completed levothy roxine sodium 0.025 MG Oral Tablet [Euthyrox] NORM ([facility]) Azithromycin 250 MG Oral Tablet azithrom ycin [...] completed azithromycin 250 MG Oral Tablet NORM ([facility]) Ibuprofen 800 MG Oral Tablet ibuprofen 8 00 mg tablet TAKE 1 TABLET BY MOUTH EVERY 6 TO 8 HOURS NEEDED ibuprofen 800 mg tablet TAKE 1 TABLET BY MOUTH EVERY 6 TO 8 HOURS NEEDED completed ibuprofen 800 MG Oral Tablet NORM ([facility]) Ibuprofen 800 MG Oral Tablet ibuprofen 8 00 mg tablet TAKE 1 TABLET BY MOUTH EVERY 6 TO 8 HOURS NEEDED ibuprofen 800 mg tablet TAKE 1 TABLET BY MOUTH EVERY 6 TO 8 HOURS NEEDED completed ibuprofen 800 MG Oral Tablet NORM ([facility]) Ibuprofen 800 MG Oral Tablet ibuprofen 8 00 mg tablet TAKE 1 TABLET BY MOUTH EVERY 6 TO 8 HOURS NEEDED ibuprofen 800 mg tablet TAKE 1 TABLET BY MOUTH EVERY 6 TO 8 HOURS NEEDED completed ibuprofen 800 MG Oral Tablet NORM ([facility]) Levothyroxine Sodium 0.05 MG Oral Tablet [Euthyrox] Euthyrox 50 mcg tablet TAKE 1 TABLET BY MOUTH ONCE DAILY Euthyrox 50 mcg tablet TAKE 1 TABLET BY MOUTH ONCE DAILY completed levothy roxine sodium 0.05 MG Oral Tablet [Euthyrox] NORM ([facility]) Levothyroxine Sodium 0.025 MG Oral Table t [Euthyrox] Euthyrox 25 mcg tablet TAKE 1 TABLET BY MOUTH ONCE DAILY Euthyrox 25 mcg tablet TAKE 1 TABLET BY MOUTH ONCE DAILY completed levothy roxine sodium 0.025 MG Oral Tablet [Euthyrox] NORM ([facility]) albuterol sulfate HFA 90 mcg/actuation aerosol inhaler [id number] completed [id number] 200 ACTUAT albuterol 0.09 MG/ACTUAT Metered Dose Inhaler NORM ([facility]) Azithromycin 250 MG Oral Tablet azithrom ycin [...] completed azithromycin 250 MG Oral Tablet NORM ([facility]) d3 50 mcg (1999 ut) caps completed d3 50 mcg (1999 ut) caps NORM ([facility]) d3 50 mcg (1999 ut) caps completed d3 50 mcg (1999 ut) caps NORM ([facility]) Ibuprofen 800 MG Oral Tablet ibuprofen 8 00 mg tablet TAKE 1 TABLET BY MOUTH EVERY 6 TO 8 HOURS NEEDED ibuprofen 800 mg tablet TAKE 1 TABLET BY MOUTH EVERY 6 TO 8 HOURS NEEDED completed ibuprofen 800 MG Oral Tablet NORM ([facility]) Ibuprofen 800 MG Oral Tablet ibuprofen 8 00 mg tablet TAKE 1 TABLET BY MOUTH EVERY 6 TO 8 HOURS NEEDED ibuprofen 800 mg tablet TAKE 1 TABLET BY MOUTH EVERY 6 TO 8 HOURS NEEDED completed ibuprofen 800 MG Oral Tablet NORM ([facility]) Clindamycin 300 MG Oral Capsule clindamycin HCl 300 mg capsule clindamycin HCl 300 mg capsule completed clindam ycin 300 MG Oral Capsule NORM ([facility]) Levothyroxine Sodium 0.05 MG Oral Tablet [Euthyrox] Euthyrox 50 mcg tablet TAKE 1 TABLET BY MOUTH ONCE DAILY Euthyrox 50 mcg tablet TAKE 1 TABLET BY MOUTH ONCE DAILY completed levothy roxine sodium 0.05 MG Oral Tablet [Euthyrox] NORM ([facility]) Ibuprofen 800 MG Oral Tablet ibuprofen 8 00 mg tablet TAKE 1 TABLET BY MOUTH EVERY 6 TO 8 HOURS NEEDED ibuprofen 800 mg tablet TAKE 1 TABLET BY MOUTH EVERY 6 TO 8 HOURS NEEDED completed ibuprofen 800 MG Oral Tablet NORM ([facility]) Levothyroxine Sodium 0.025 MG Oral Table t [Euthyrox] Euthyrox 25 mcg tablet TAKE 1 TABLET BY MOUTH ONCE DAILY Euthyrox 25 mcg tablet TAKE 1 TABLET BY MOUTH ONCE DAILY completed levothy roxine sodium 0.025 MG Oral Tablet [Euthyrox] NORM ([facility]) Azithromycin 250 MG Oral Tablet azithrom ycin [...] completed azithromycin 250 MG Oral Tablet NORM ([facility]) Clindamycin 300 MG Oral Capsule clindamycin HCl 300 mg capsule clindamycin HCl 300 mg capsule completed clindam ycin 300 MG Oral Capsule NORM ([facility]) POLYETHYLENE GLYCOL 3350 142 MG/ML Oral Solution [Miralax] Miralax 17 gram/dose oral powder Take by oral route. Miralax 17 gram/dose oral powder Take by oral route. completed polyeth ylene glycol 3350 65039 MG Powder for Oral Solution [Miralax] NORM ([facility]) Ibuprofen 800 MG Oral Tablet ibuprofen 8 00 mg tablet TAKE 1 TABLET BY MOUTH EVERY 6 TO 8 HOURS NEEDED ibuprofen 800 mg tablet TAKE 1 TABLET BY MOUTH EVERY 6 TO 8 HOURS NEEDED completed ibuprofen 800 MG Oral Tablet NORM ([facility]) POLYETHYLENE GLYCOL 3350 142 MG/ML Oral Solution [Miralax] Miralax 17 gram/dose oral powder Take by oral route. Miralax 17 gram/dose oral powder Take by oral route. completed polyeth ylene glycol 3350 18102 MG Powder for Oral Solution [Miralax] NORM ([facility]) Ibuprofen 800 MG Oral Tablet ibuprofen 8 00 mg tablet TAKE 1 TABLET BY MOUTH EVERY 6 TO 8 HOURS NEEDED ibuprofen 800 mg tablet TAKE 1 TABLET BY MOUTH EVERY 6 TO 8 HOURS NEEDED completed ibuprofen 800 MG Oral Tablet NORM ([facility]) Ibuprofen 800 MG Oral Tablet ibuprofen 8 00 mg tablet TAKE 1 TABLET BY MOUTH EVERY 6 TO 8 HOURS NEEDED ibuprofen 800 mg tablet TAKE 1 TABLET BY MOUTH EVERY 6 TO 8 HOURS NEEDED completed ibuprofen 800 MG Oral Tablet NORM ([facility]) Clindamycin 300 MG Oral Capsule clindamycin HCl 300 mg capsule clindamycin HCl 300 mg capsule completed clindam ycin 300 MG Oral Capsule NORM ([facility]) albuterol sulfate HFA 90 mcg/actuation aerosol inhaler [id number] completed [id number] 200 ACTUAT albuterol 0.09 MG/ACTUAT Metered Dose Inhaler NORM ([facility]) fluticasone 113 mcg-salmeterol 14 mcg/actuation breath [facility] [id number] completed 60 ACTUAT flut icasone propionate 0.113 MG/ACTUAT / salmeterol 0.014 MG/ACTUAT Dry Powder Inhaler NORM ([facility]) Insurance Providers Payer name Policy type / Coverage type Policy ID Covered democrat ID Covered democrat's relationship to rodgers Policy Rodgers Plan Information [employer] [id number] Self [id number] [employer] [id number] Self [id number] [employer] emp [id number] Employee [id number] [employer] emp [id number] Employee [id number] [facility] Community Plan P [id number] S [id number] [facility] Community Plan S UNAVAILABLE S UNAVAILABLE Medicaid O UNAVAILABLE S UNAVAILA BLE Sliding Fee Scale P [id number] S [id number] SELF PAY UNAVAILABLE SP UNAVAILA BLE MEDICAID [id number] SP [id number] [facility] Health Maintenance Organization ([facility]) [id number] Self [id number] [facility] Health Maintenance Organization (O) [id number] Self [id number] [facility] Health Maintenance Organization (O) [id number] Self [id number] [facility] Health Maintenance Organization (O) [id number] Self [id number] [facility] Health Maintenance Organization (O) [id number] Self [id number] [facility] Health Maintenance Organization (O) [id number] Self [facility] Health Maintenance Organization (HMO) [id number] Self [employer] -O [id number] 18 [id number] [employer] [facility] [id number] SP [id number] [facility] O [id number] S [id number] [employer] [id number] SP [id number] MEDICAID [id number] SP [id number] Medicaid S [id number] S [id number] Problems, Conditions, and Diagnoses Code Display Name Description Problem Type Effective Dates Data Source(s) [id number] COVID-19 Covid-19 Problem 07/22/2021 12:00:00 AM SHAY ZHENG ([facility] [facility]) [id number] Vitamin D deficiency Vitamin D Deficiency Problem 07/17/2021 09:50:12 AM KELLY ZHENG ([facility]) [id number] Asthma Asthma Problem 01/15/2021 12:00:00 AM ED T NORM ([facility]) [id number] Asthma Asthma Problem 01/15/2021 12:00:00 AM ED T NORM ([facility]) [id number] Asthma Asthma Problem 01/15/2021 12:00:00 AM ED T NORM ([facility]) [id number] Asthma Asthma Problem 01/15/2021 12:00:00 AM ED T NORM ([facility]) [id number] Asthma Asthma Problem 01/15/2021 12:00:00 AM ED T NORM ([facility]) [id number] Asthma Asthma Problem 01/15/2021 12:00:00 AM ED T NORM ([facility]) [id number] Pharyngeal finding Pharyngeal Finding Problem 03/2020 12:00:00 AM EDT - 01/15/2021 12:00:00 AM EDT NORM ([facility]) [id number] Pharyngeal finding Pharyngeal Finding Problem 03/2020 12:00:00 AM EDT - 01/15/2021 12:00:00 AM EDT NORM ([facility]) [id number] Pharyngeal finding Pharyngeal Finding Problem 03/2020 12:00:00 AM EDT - 01/15/2021 12:00:00 AM EDT NORM ([facility]) [id number] Pharyngeal finding Pharyngeal Finding Problem 03/2020 12:00:00 AM EDT - 01/15/2021 12:00:00 AM EDT NORM ([facility]) [id number] Pharyngeal finding Pharyngeal Finding Problem 03/2020 12:00:00 AM EDT - 01/15/2021 12:00:00 AM EDT NORM ([facility]) [id number] Pharyngeal finding Pharyngeal Finding Problem 03/2020 12:00:00 AM EDT - 01/15/2021 12:00:00 AM EDT NORM ([facility]) [id number] Clinical finding Clinical Finding Problem 12:00:00 AM EST - 01/15/2021 12:00:00 AM EDT NORM ([facility]) [id number] Adult health examination Adult Health Examination Prob ken 10/24/2019 12:00:00 AM EST - 04/02/2021 12:00:00 AM EDT [place] ([facility]) [id number] Influenza vaccine needed Influenza Vaccine Needed Pro blem 10/24/2019 12:00:00 AM EST - 04/02/2021 12:00:00 AM EDT [place] ([facility]) [id number] Left upper quadrant pain Left Upper Quadrant Pain Prob ken 10/24/2019 12:00:00 AM EST - 01/15/2021 12:00:00 AM EDT [place] ([facility]) [id number] Exacerbation of intermittent asthma Exac erbation of Intermittent Asthma Problem 10/24/2019 12:00:00 AM EST - 01/15/2021 12:00:00 AM EDT [place] ([facility]) [id number] Iron deficiency Iron Deficiency Problem 0 12:00:00 AM EST - 04/02/2021 12:00:00 AM EDT [place] ([facility]) [id number] Adult health examination Adult Health Examination Prob ken 10/24/2019 12:00:00 AM EST - 04/02/2021 12:00:00 AM EDT [place] ([facility]) [id number] Influenza vaccine needed Influenza Vaccine Needed Pro blem 10/24/2019 12:00:00 AM EST - 04/02/2021 12:00:00 AM EDT [place] ([facility]) [id number] Left upper quadrant pain Left Upper Quadrant Pain Prob ken 10/24/2019 12:00:00 AM EST - 01/15/2021 12:00:00 AM EDT [place] ([facility]) [id number] Exacerbation of intermittent asthma Exac erbation of Intermittent Asthma Problem 10/24/2019 12:00:00 AM EST - 01/15/2021 12:00:00 AM EDT [place] ([facility]) [id number] Iron deficiency Iron Deficiency Problem 0 12:00:00 AM EST - 04/02/2021 12:00:00 AM EDT [place] ([facility]) [id number] Clinical finding Clinical Finding Problem 020 12:00:00 AM EST - 01/15/2021 12:00:00 AM EDT NORM ([facility]) [id number] Adult health examination Adult Health Examination Prob ken 10/24/2019 12:00:00 AM EST - 04/02/2021 12:00:00 AM EDT [place] ([facility]) [id number] Influenza vaccine needed Influenza Vaccine Needed Pro blem 10/24/2019 12:00:00 AM EST - 04/02/2021 12:00:00 AM EDT [place] ([facility]) [id number] Left upper quadrant pain Left Upper Quadrant Pain Prob ken 10/24/2019 12:00:00 AM EST - 01/15/2021 12:00:00 AM EDT [place] ([facility]) [id number] Exacerbation of intermittent asthma Exac erbation of Intermittent Asthma Problem 10/24/2019 12:00:00 AM EST - 01/15/2021 12:00:00 AM EDT [place] ([facility]) [id number] Iron deficiency Iron Deficiency Problem 12:00:00 AM EST - 04/02/2021 12:00:00 AM EDT [place] ([facility]) [id number] Clinical finding Clinical Finding Problem 020 12:00:00 AM EST - 01/15/2021 12:00:00 AM EDT NORM ([facility]) [id number] Adult health examination Adult Health Examination Prob ken 10/24/2019 12:00:00 AM EST - 04/02/2021 12:00:00 AM EDT [place] ([facility]) [id number] Influenza vaccine needed Influenza Vaccine Needed Pro blem 10/24/2019 12:00:00 AM EST - 04/02/2021 12:00:00 AM EDT [place] ([facility]) [id number] Left upper quadrant pain Left Upper Quadrant Pain Prob ken 10/24/2019 12:00:00 AM EST - 01/15/2021 12:00:00 AM EDT [place] ([facility]) [id number] Exacerbation of intermittent asthma Exac erbation of Intermittent Asthma Problem 10/24/2019 12:00:00 AM EST - 01/15/2021 12:00:00 AM EDT [place] ([facility]) [id number] Iron deficiency Iron Deficiency Problem 12:00:00 AM EST - 04/02/2021 12:00:00 AM EDT [place] ([facility]) [id number] Clinical finding Clinical Finding Problem 020 12:00:00 AM EST - 01/15/2021 12:00:00 AM EDT [place] ([facility]) [id number] Left upper quadrant pain Left Upper Quadrant Pain Prob ken 10/24/2019 12:00:00 AM EST - 01/15/2021 12:00:00 AM EDT [place] ([facility]) [id number] Exacerbation of intermittent asthma Exac erbation of Intermittent Asthma Problem 10/24/2019 12:00:00 AM EST - 01/15/2021 12:00:00 AM EDT [place] ([facility]) [id number] Clinical finding Clinical Finding Problem 020 12:00:00 AM EST - 01/15/2021 12:00:00 AM EDT [place] ([facility]) [id number] Left upper quadrant pain Left Upper Quadrant Pain Prob ken 10/24/2019 12:00:00 AM EST - 01/15/2021 12:00:00 AM EDT [place] ([facility]) [id number] Exacerbation of intermittent asthma Exac erbation of Intermittent Asthma Problem 10/24/2019 12:00:00 AM EST - 01/15/2021 12:00:00 AM EDT [place] ([facility]) [id number] Clinical finding Clinical Finding Problem 020 12:00:00 AM EST - 01/15/2021 12:00:00 AM EDT [place] ([facility]) Surgeries/Procedures Procedure Description Date Indications Data Source(s) OFFICE OUTPATIENT VISIT 15 MINUTES 07/20/2021 12:00:00 AM EST MEDENT ([facility], [facility]) Remove Impact Cerumen Irrigati 03/05/2021 12:00:00 AM EDT MEDENT ([facility], [facility]) OFFICE OUTPATIENT VISIT 15 MINUTES 03/05/2021 12:00:00 AM ZEV MARTINEZ ([facility], [facility]) XR, kidney + ureter + bladder 10/26/2020 12:00:[address] NORM ([facility]) XR, kidney + ureter + bladder 10/26/2020 12:00:[address] NORM ([facility]) XR, kidney + ureter + bladder 10/26/2020 12:00:[address] NORM ([facility]) XR, kidney + ureter + bladder 10/26/2020 12:00:[address] NORM ([facility]) XR, kidney + ureter + bladder 10/26/2020 12:00:[address] NORM ([facility]) XR, kidney + ureter + bladder 10/26/2020 12:00:[address] NORM ([facility]) XR, kidney + ureter + bladder 10/26/2020 12:00:[address] NORM ([facility]) XR, kidney + ureter + bladder 10/26/2020 12:00:[address] NORM ([facility]) XR, kidney + ureter + bladder 10/26/2020 12:00:[address] NORM ([facility]) exercise stress test 10/10/2020 12:00:00 AM EST NORM ([facility]) exercise stress test 10/10/2020 12:00:00 AM EST NORM ([facility]) exercise stress test 10/10/2020 12:00:00 AM EST NORM ([facility]) exercise stress test 10/10/2020 12:00:00 AM EST NORM ([facility]) exercise stress test 10/10/2020 12:00:00 AM EST NORM ([facility]) exercise stress test 10/10/2020 12:00:00 AM EST NORM ([facility]) exercise stress test 10/10/2020 12:00:00 AM EST NORM ([facility]) exercise stress test 10/10/2020 12:00:00 AM EST NORM ([facility]) exercise stress test 10/10/2020 12:00:00 AM EST [place] ([facility]) exercise stress test 10/10/2020 12:00:00 AM EST [place] ([facility]) exercise stress test 10/10/2020 12:00:00 AM EST [place] ([facility]) Results ID Date Data Source [id number] 07/20/2021 12:00:00 AM EST [facility] Name Value Range Interpretation Code Description Data Jania rce(s) Supporting Document(s) SARS-CoV2 Rapid Antigen Positive [facility] This lab was reported by [facility]. ID Date Data Source [id number] 07/20/2021 12:00:00 AM EST [facility] Name Value Range Interpretation Code Description Data Jania rce(s) Supporting Document(s) SARS-CoV2 Rapid Antigen Positive [facility] This lab was reported by [facility]. ID Date Data Source [id number] 07/02/2021 10:29:00 AM EST [facility] Name Value Range Interpretation Code Description Data Jania rce(s) Supporting Document(s) SARS coronavirus 2 RNA [Presence] in Res piratory specimen by JAMMIE with probe detection NEGATIVE [facility] This lab was ordered by [facility] a nd reported by [email or web address]. ID Date Data Source [id number] 06/03/2021 09:35:00 AM EDT [facility]) Name Value Range Interpretation Code Description Data Jania rce(s) Supporting Document(s) Thyrotropin [Units/volume] in Serum or Plasma 2.95 mIU/L 0.40-4.50 Tsh [facility]) ID Date Data Source [id number] 04/02/2021 10:30:00 AM EDT [facility]) Name Value Range Interpretation Code Description Data Jania rce(s) Supporting Document(s) Bacteria identified in Throat by Culture see note Culture, Throat [facility]) ID Date Data Source [id number] 04/02/2021 10:30:00 AM EDT [facility]) Name Value Range Interpretation Code Description Data Jania rce(s) Supporting Document(s) Bacteria identified in Throat by Culture see note Culture, Throat [facility]) ID Date Data Source [id number] 04/02/2021 10:30:00 AM EDT [facility]) Name Value Range Interpretation Code Description Data Jania rce(s) Supporting Document(s) Bacteria identified in Throat by Culture see note Culture, Throat [facility]) ID Date Data Source [id number] 04/02/2021 10:07:00 AM EDT [facility]) Name Value Range Interpretation Code Description Data Jania rce(s) Supporting Document(s) sars-cov-2 negative negative Sars-cov-2 [facility]) ID Date Data Source [id number] 04/02/2021 10:07:00 AM EDT [facility]) Name Value Range Interpretation Code Description Data Jania rce(s) Supporting Document(s) sars-cov-2 negative negative Sars-cov-2 [facility]) ID Date Data Source [id number] 04/02/2021 10:07:00 AM EDT [facility]) Name Value Range Interpretation Code Description Data Jania rce(s) Supporting Document(s) sars-cov-2 negative negative Sars-cov-2 [facility]) ID Date Data Source [id number] 04/02/2021 10:07:00 AM EDT [facility]) Name Value Range Interpretation Code Description Data Jania rce(s) Supporting Document(s) sars-cov-2 negative negative Sars-cov-2 [facility]) ID Date Data Source [id number] 04/02/2021 09:00:00 AM EDT [facility] Name Value Range Interpretation Code Description Data Jania rce(s) Supporting Document(s) SARS coronavirus 2 RdRp gene [Presence] in Respiratory specimen by JAMMIE with probe detection Not detected [facility] This lab was ordered by [facility] and reported by [facility]. ID Date Data Source [id number] 03/11/2021 10:12:00 AM EDT [place] ([facility]) Name Value Range Interpretation Code Description Data Jania rce(s) Supporting Document(s) Calcidiol [Mass/volume] in Serum or Plasma 12 NG/mL 30-100 Below low normal Vitamin D,25-Oh,total,ia [facility]) ID Date Data Source [id number] 03/11/2021 10:12:00 AM EDT [place] ([facility]) Name Value Range Interpretation Code Description Data Jania rce(s) Supporting Document(s) Thyroxine (T4) free [Mass/volume] in Serum or Plasma 0.9 NG/dL 0 .8-1.8 T4, Free MAL[place] ([facility]) Thyrotropin [Units/volume] in Serum or Plasma 4.52 mIU/L 0. 40-4.50 Above high normal Tsh [place] ([facility]) ID Date Data Source [id number] 03/11/2021 10:12:00 AM EDT [place] ([facility]) Name Value Range Interpretation Code Description Data Jania rce(s) Supporting Document(s) Calcidiol [Mass/volume] in Serum or Plasma 12 NG/mL 30-100 Below low normal Vitamin D,25-Oh,total,ia [place] ([facility]) ID Date Data Source [id number] 03/11/2021 10:12:00 AM EDT [facility]) Name Value Range Interpretation Code Description Data Jania rce(s) Supporting Document(s) Thyrotropin [Units/volume] in Serum or Plasma 4.52 mIU/L 0. 40-4.50 Above high normal Tsh NORM ([facility]) Thyroxine (T4) free [Mass/volume] in Serum or Plasma 0.9 NG/dL 0 .8-1.8 T4, Free [place] ([facility]) ID Date Data Source [id number] 01/08[facility]21 [facility]23[facility] Name Value Range Interpretation Code Description Data Jania rce(s) Supporting Document(s) ID Date Data Source [id number] 01/08/2021 09:23:00 AM EDT [facility]) Name Value Range Interpretation Code Description Data Jania rce(s) Supporting Document(s) ID Date Data Source [id number] 01/08/2021 09:23[facility] Name Value Range Interpretation Code Description Data Jania rce(s) Supporting Document(s) ID Date Data Source [id number] 01/08/2021 09:23[facility] Name Value Range Interpretation Code Description Data Jania rce(s) Supporting Document(s) ID Date Data Source [id number] 01/08/2021 09:23:00 [facility] Name Value Range Interpretation Code Description Data Jania rce(s) Supporting Document(s) ID Date Data Source [id number] 01/08/2021 09:23:00 AM EDT [facility]) Name Value Range Interpretation Code Description Data Jania rce(s) Supporting Document(s) ID Date Data Source [id number] 01/08/2021 09:23[facility] Name Value Range Interpretation Code Description Data Jania rce(s) Supporting Document(s) ID Date Data Source [id number] 01/08/2021 09:23:00 AM EDT [facility]) Name Value Range Interpretation Code Description Data Jania rce(s) Supporting Document(s) ID Date Data Source [id number] 01/08/2021 09:23:00 [facility] Name Value Range Interpretation Code Description Data Jania rce(s) Supporting Document(s) ID Date Data Source [id number] 01/08/2021 09:23:00 [facility] Name Value Range Interpretation Code Description Data Jania rce(s) Supporting Document(s) ID Date Data Source [id number] 01/08/2021 09:23:00 [facility] Name Value Range Interpretation Code Description Data Jania rce(s) Supporting Document(s) ID Date Data Source [id number] 01/08/2021 09:23:00 [facility] Name Value Range Interpretation Code Description Data Jania rce(s) Supporting Document(s) ID Date Data Source [id number] 01/08/2021 09:23:00 [facility] Name Value Range Interpretation Code Description Data Jania rce(s) Supporting Document(s) ID Date Data Source [id number] 01/08/2021 09:23:00 [facility] Name Value Range Interpretation Code Description Data Jania rce(s) Supporting Document(s) ID Date Data Source [id number] 01/08/2021 09:23:00 AM EDT NORM ([facility]) Name Value Range Interpretation Code Description Data Jania rce(s) Supporting Document(s) ID Date Data Source [id number] 01/08/2021 09:23:00 [facility] Name Value Range Interpretation Code Description Data Jania rce(s) Supporting Document(s) ID Date Data Source [id number] 01/08/2021 09:23:00 [facility] Name Value Range Interpretation Code Description Data Jania rce(s) Supporting Document(s) ID Date Data Source [id number] 01/08/2021 09:23:00 [facility] Name Value Range Interpretation Code Description Data Jania rce(s) Supporting Document(s) ID Date Data Source [id number] 01/08/2021 09:23:00 [facility] Name Value Range Interpretation Code Description Data Jania rce(s) Supporting Document(s) ID Date Data Source [id number] 01/08/2021 09:23:00 [facility] Name Value Range Interpretation Code Description Data Jania rce(s) Supporting Document(s) ID Date Data Source [id number] 01/08/2021 09:23:00 [facility] Name Value Range Interpretation Code Description Data Jania rce(s) Supporting Document(s) ID Date Data Source [id number] 01/08/2021 09:23:00 AM EDT [place] ([facility]) Name Value Range Interpretation Code Description Data Jania rce(s) Supporting Document(s) ID Date Data Source [id number] 01/08/2021 09:23:00 AM EDT NORM ([facility]) Name Value Range Interpretation Code Description Data Jania rce(s) Supporting Document(s) ID Date Data Source [id number] 01/08/2021 09:23:00 AM EDT NORM ([facility]) Name Value Range Interpretation Code Description Data Jania rce(s) Supporting Document(s) ID Date Data Source [id number] 10/22/2020 10:14:00 AM EST [facility]) Name Value Range Interpretation Code Description Data Jania rce(s) Supporting Document(s) glucose, fasting 81 mg/dL 70-100 Glucose, Fasting AT [facility]) blood urea nitrogen 12 mg/dL 7-18 Blood Urea Nitro gen NORM ([facility]) glomerular filtration rate > 60.0 >60 Glomerula r Filtration Rate [place] ([facility]) creatinine for GFR 1.10 mg/dL 0.70-1.30 Creatinine for GF R [place] ([facility]) sodium level 138 mEq/L 136-145 Sodium Level NORM ([facility]) potassium serum 4.3 mEq/L 3.5-5.1 Potassium Serum ATHE NA ([facility]) carbon dioxide level 32 mEq/L 21-32 Carbon Dioxide Level NORM ([facility]) anion gap 2 mEq/L 8-16 Below low normal Anion Gap NORM ( [facility]) chloride level 104 mEq/L 98-107 Chloride Level NORM ([facility]) calcium level 9.0 mg/dL 8.5-10.1 Calcium Level [place] ( [facility]) ID Date Data Source [id number] 10/22/2020 10:14:00 AM EST NORM ([facility]) Name Value Range Interpretation Code Description Data Jania rce(s) Supporting Document(s) glucose, fasting 81 mg/dL 70-100 Glucose, Fasting AT [facility] ([facility]) blood urea nitrogen 12 mg/dL 7-18 Blood Urea Nitro gen NORM ([facility]) creatinine for GFR 1.10 mg/dL 0.70-1.30 Creatinine for GF R NORM ([facility]) glomerular filtration rate > 60.0 >60 Glomerula r Filtration Rate NORM ([facility]) sodium level 138 mEq/L 136-145 Sodium Level NORM ([facility]) potassium serum 4.3 mEq/L 3.5-5.1 Potassium Serum ATHE NA ([facility]) carbon dioxide level 32 mEq/L 21-32 Carbon Dioxide Level [place] ([facility]) chloride level 104 mEq/L 98-107 Chloride Level [place] ([facility]) anion gap 2 mEq/L 8-16 Below low normal Anion Gap NORM ( [facility]) calcium level 9.0 mg/dL 8.5-10.1 Calcium Level [place] ( [facility]) ID Date Data Source [id number] 10/22/2020 10:14:00 AM EST NORM ([facility]) Name Value Range Interpretation Code Description Data Jania rce(s) Supporting Document(s) glucose, fasting 81 mg/dL 70-100 Glucose, Fasting AT [facility] ([facility]) blood urea nitrogen 12 mg/dL 7-18 Blood Urea Nitro gen NORM ([facility]) creatinine for GFR 1.10 mg/dL 0.70-1.30 Creatinine for GF R NORM ([facility]) glomerular filtration rate > 60.0 >60 Glomerula r Filtration Rate NORM ([facility]) sodium level 138 mEq/L 136-145 Sodium Level NORM ([facility]) potassium serum 4.3 mEq/L 3.5-5.1 Potassium Serum ATHE NA ([facility]) chloride level 104 mEq/L 98-107 Chloride Level NORM ([facility]) carbon dioxide level 32 mEq/L 21-32 Carbon Dioxide Level NORM ([facility]) anion gap 2 mEq/L 8-16 Below low normal Anion Gap NORM ( [facility]) calcium level 9.0 mg/dL 8.5-10.1 Calcium Level [place] ( [facility]) ID Date Data Source [id number] 10/22/2020 10:14:00 AM EST [place] ([facility]) Name Value Range Interpretation Code Description Data Jania rce(s) Supporting Document(s) blood urea nitrogen 12 mg/dL 7-18 Blood Urea Nitro gen NORM ([facility]) glucose, fasting 81 mg/dL 70-100 Glucose, Fasting AT [facility] ([facility]) glomerular filtration rate > 60.0 >60 Glomerula r Filtration Rate [place] ([facility]) creatinine for GFR 1.10 mg/dL 0.70-1.30 Creatinine for GF R [place] ([facility]) potassium serum 4.3 mEq/L 3.5-5.1 Potassium Serum ATH NA ([facility]) sodium level 138 mEq/L 136-145 Sodium Level NORM ([facility]) chloride level 104 mEq/L 98-107 Chloride Level NORM ([facility]) anion gap 2 mEq/L 8-16 Below low normal Anion Gap NORM ( [facility]) carbon dioxide level 32 mEq/L 21-32 Carbon Dioxide Level [place] ([facility]) calcium level 9.0 mg/dL 8.5-10.1 Calcium Level [place] ( [facility]) ID Date Data Source [id number] 10/22/2020 10:14:00 AM EST [place] ([facility]) Name Value Range Interpretation Code Description Data Jania rce(s) Supporting Document(s) glucose, fasting 81 mg/dL 70-100 Glucose, Fasting AT [facility] ([facility]) creatinine for GFR 1.10 mg/dL 0.70-1.30 Creatinine for GF R NORM ([facility]) blood urea nitrogen 12 mg/dL 7-18 Blood Urea Nitro gen NORM ([facility] [facility]) glomerular filtration rate > 60.0 >60 Glomerula r Filtration Rate NORM ([facility]) sodium level 138 mEq/L 136-145 Sodium Level NORM (No [facility]) potassium serum 4.3 mEq/L 3.5-5.1 Potassium Serum ATHE NA ([facility]) carbon dioxide level 32 mEq/L 21-32 Carbon Dioxide Level NORM ([facility]) chloride level 104 mEq/L 98-107 Chloride Level NORM ([facility]) anion gap 2 mEq/L 8-16 Below low normal Anion Gap NORM ( [facility]) calcium level 9.0 mg/dL 8.5-10.1 Calcium Level MALDEN ( [facility]) ID Date Data Source [id number] 10/22/2020 10:14:00 AM EST MALDEN ([facility]) Name Value Range Interpretation Code Description Data Jania rce(s) Supporting Document(s) glucose, fasting 81 mg/dL 70-100 Glucose, Fasting AT [facility]) blood urea nitrogen 12 mg/dL 7-18 Blood Urea Nitro gen NORM ([facility]) creatinine for GFR 1.10 mg/dL 0.70-1.30 Creatinine for GF R MALDEN ([facility]) glomerular filtration rate > 60.0 >60 Glomerula r Filtration Rate NROM ([facility]) sodium level 138 mEq/L 136-145 Sodium Level NORM (No [facility]) potassium serum 4.3 mEq/L 3.5-5.1 Potassium Serum ATHE NA ([facility]) chloride level 104 mEq/L 98-107 Chloride Level NORM ([facility]) carbon dioxide level 32 mEq/L 21-32 Carbon Dioxide Level MAL[place] ([facility]) calcium level 9.0 mg/dL 8.5-10.1 Calcium Level NORM ( [facility]) anion gap 2 mEq/L 8-16 Below low normal Anion Gap NORM ( [facility]) ID Date Data Source [id number] 10/22/2020 10:14:00 AM EST NORM ([facility]) Name Value Range Interpretation Code Description Data Jania rce(s) Supporting Document(s) glucose, fasting 81 mg/dL 70-100 Glucose, Fasting AT [facility] ([facility]) creatinine for GFR 1.10 mg/dL 0.70-1.30 Creatinine for GF R NORM ([facility]) blood urea nitrogen 12 mg/dL 7-18 Blood Urea Nitro gen NORM ([facility]) glomerular filtration rate > 60.0 >60 Glomerula r Filtration Rate NORM ([facility]) chloride level 104 mEq/L 98-107 Chloride Level [facility]) potassium serum 4.3 mEq/L 3.5-5.1 Potassium Serum ATHE NA ([facility]) sodium level 138 mEq/L 136-145 Sodium Level NORM ([facility]) carbon dioxide level 32 mEq/L 21-32 Carbon Dioxide Level MALDEN ([facility]) anion gap 2 mEq/L 8-16 Below low normal Anion Gap MALDEN ( [facility]) calcium level 9.0 mg/dL 8.5-10.1 Calcium Level MALDEN ( [facility]) ID Date Data Source [id number] 10/22/2020 10:14:00 AM EST NORM ([facility]) Name Value Range Interpretation Code Description Data Jania rce(s) Supporting Document(s) blood urea nitrogen 12 mg/dL 7-18 Blood Urea Nitro gen NORM ([facility]) glucose, fasting 81 mg/dL 70-100 Glucose, Fasting AT [facility] ([facility]) glomerular filtration rate > 60.0 >60 Glomerula r Filtration Rate NORM ([facility]) creatinine for GFR 1.10 mg/dL 0.70-1.30 Creatinine for GF R MALDEN ([facility]) potassium serum 4.3 mEq/L 3.5-5.1 Potassium Serum ATHE NA ([facility]) chloride level 104 mEq/L 98-107 Chloride Level NORM ([facility]) sodium level 138 mEq/L 136-145 Sodium Level NORM (No [facility]) anion gap 2 mEq/L 8-16 Below low normal Anion Gap NORM ( [facility]) carbon dioxide level 32 mEq/L 21-32 Carbon Dioxide Level NORM ([facility]) calcium level 9.0 mg/dL 8.5-10.1 Calcium Level MALDEN ( [facility]) ID Date Data Source [id number] 10/22/2020 10:14:00 AM EST [facility]) Name Value Range Interpretation Code Description Data Jania rce(s) Supporting Document(s) glucose, fasting 81 mg/dL 70-100 Glucose, Fasting AT [facility]) blood urea nitrogen 12 mg/dL 7-18 Blood Urea Nitro gen MALDEN ([facility]) glomerular filtration rate > 60.0 >60 Glomerula r Filtration Rate NORM ([facility]) sodium level 138 mEq/L 136-145 Sodium Level NORM ([facility]) creatinine for GFR 1.10 mg/dL 0.70-1.30 Creatinine for GF R NORM ([facility]) chloride level 104 mEq/L 98-107 Chloride Level MALDEN ([facility]) potassium serum 4.3 mEq/L 3.5-5.1 Potassium Serum ATHE NA ([facility]) anion gap 2 mEq/L 8-16 Below low normal Anion Gap NORM ( [facility]) carbon dioxide level 32 mEq/L 21-32 Carbon Dioxide Level NORM ([facility]) calcium level 9.0 mg/dL 8.5-10.1 Calcium Level MALDEN ( [facility]) ID Date Data Source [id number] 09/13/2020 05:35:00 PM EST MALDEN ([facility]) Name Value Range Interpretation Code Description Data Jania rce(s) Supporting Document(s) lipase 179 U/L 73-393 Lipase MALDEN [facility]) ID Date Data Source [id number] 09/13/2020 05:35:00 PM EST NORM ([facility]) Name Value Range Interpretation Code Description Data Jania rce(s) Supporting Document(s) blood urea nitrogen 10 mg/dL 7-18 Blood Urea Nitro gen MALDEN ([facility]) glucose, fasting 93 mg/dL 70-100 Glucose, Fasting AT [facility] ([facility]) creatinine for GFR 1.03 mg/dL 0.70-1.30 Creatinine for GF R NORM ([facility]) sodium level 140 mEq/L 136-145 Sodium Level MALDEN ([facility]) potassium serum 3.3 mEq/L 3.5-5.1 Below low normal Potassium Seru m MALDEN ([facility]) glomerular filtration rate > 60.0 >60 Glomerula r Filtration Rate MALDEN ([facility]) chloride level 101 mEq/L 98-107 Chloride Level MAL[place] ([facility]) anion gap 10 mEq/L 8-16 Anion Gap MALDEN ([facility]) carbon dioxide level 29 mEq/L 21-32 Carbon Dioxide Level MAL[place] ([facility]) calcium level 9.4 mg/dL 8.5-10.1 Calcium Level MALDEN ( [facility]) ID Date Data Source [id number] 09/13/2020 05:35:00 PM EST NORM ([facility]) Name Value Range Interpretation Code Description Data Jania rce(s) Supporting Document(s) ALT/SGPT 29 U/L 12-78 ALT/SGPT NORM ([facility]) AST/SGOT 16 U/L 7-37 AST/SGOT MAL[place] ([facility]) alkaline phosphatase 72 U/L 45-117 Alkaline Phosph atase MALDEN ([facility]) bilirubin,total 0.4 mg/dL 0.2-1.0 Bilirubin,total ATHE ([facility]) bilirubin,direct < 0.1 0.0-0.2 Bilirubin,direct AT [facility] ([facility]) albumin/globulin ratio Albumin/globu veda Ratio NORM ([facility]) total protein 8.1 gm/dL 6.4-8.2 Total Protein NORM ( [facility]) albumin 4.7 gm/dL 3.2-5.2 Albumin NORM ([facility]) ID Date Data Source [id number] 09/13/2020 05:35:00 PM EST NORM ([facility]) Name Value Range Interpretation Code Description Data Jania rce(s) Supporting Document(s) CK-mb value mass 1.3 NG/mL <3.6 CK-mb Value Mass AT [facility] ([facility]) CPK creatine phosphokinase 136 U/L 39-308 CPK Creat ine Phosphokinase NORM ([facility]) mb/CK relative index < or =4 mb/CK Relative Index NORM ([facility]) troponin I < 0.02 < 0.10 Troponin I NORM ([facility]) ID Date Data Source [id number] 09/13/2020 05:35:00 PM EST NORM ([facility]) Name Value Range Interpretation Code Description Data Jania rce(s) Supporting Document(s) D-dimer quant < 270 <500 D-dimer Quant NORM ( [facility]) ID Date Data Source [id number] 09/13/2020 05:35:00 PM EST NORM ([facility]) Name Value Range Interpretation Code Description Data Jania rce(s) Supporting Document(s) prothrombin time 13.1 seconds 12.5-14.3 Prothrombin Time NORM ([facility]) partial thromboplastin time 31.0 seconds 24.2-38.5 Partial Thromboplastin Time NORM ([facility]) INR Inr NORM ([facility]) ID Date Data Source [id number] 09/13/2020 05:35:00 PM EST NORM ([facility]) Name Value Range Interpretation Code Description Data Jania rce(s) Supporting Document(s) lipase 179 U/L 73-393 Lipase NORM ([facility]) ID Date Data Source [id number] 09/13/2020 05:35:00 PM EST NORM ([facility]) Name Value Range Interpretation Code Description Data Jania rce(s) Supporting Document(s) glucose, fasting 93 mg/dL 70-100 Glucose, Fasting AT [facility]) blood urea nitrogen 10 mg/dL 7-18 Blood Urea Nitro gen NORM ([facility]) sodium level 140 mEq/L 136-145 Sodium Level NORM (No [facility]) glomerular filtration rate > 60.0 >60 Glomerula r Filtration Rate MALDEN ([facility]) creatinine for GFR 1.03 mg/dL 0.70-1.30 Creatinine for GF R MALDEN ([facility]) potassium serum 3.3 mEq/L 3.5-5.1 Below low normal Potassium Seru m NORM ([facility]) carbon dioxide level 29 mEq/L 21-32 Carbon Dioxide Level NORM ([facility]) chloride level 101 mEq/L 98-107 Chloride Level [place] ([facility]) anion gap 10 mEq/L 8-16 Anion Gap NORM ([facility]) calcium level 9.4 mg/dL 8.5-10.1 Calcium Level MALDEN ( [facility]) ID Date Data Source [id number] 09/13/2020 05:35:00 PM EST NORM ([facility]) Name Value Range Interpretation Code Description Data Jania rce(s) Supporting Document(s) AST/SGOT 16 U/L 7-37 AST/SGOT NORM ([facility]) alkaline phosphatase 72 U/L 45-117 Alkaline Phosph atase NORM ([facility]) ALT/SGPT 29 U/L 12-78 ALT/SGPT NORM ([facility]) bilirubin,total 0.4 mg/dL 0.2-1.0 Bilirubin,total ATHE NA ([facility]) total protein 8.1 gm/dL 6.4-8.2 Total Protein NORM ( [facility]) bilirubin,direct < 0.1 0.0-0.2 Bilirubin,direct AT [facility] ([facility]) albumin 4.7 gm/dL 3.2-5.2 Albumin NORM ([facility]) albumin/globulin ratio Albumin/globu veda Ratio NORM ([facility]) ID Date Data Source [id number] 09/13/2020 05:35:00 PM EST NORM ([facility]) Name Value Range Interpretation Code Description Data Jania rce(s) Supporting Document(s) CPK creatine phosphokinase 136 U/L 39-308 CPK Creat ine Phosphokinase NORM ([facility]) CK-mb value mass 1.3 NG/mL <3.6 CK-mb Value Mass AT [facility] ([facility]) mb/CK relative index < or =4 mb/CK Relative Index NORM ([facility]) troponin I < 0.02 < 0.10 Troponin I NORM ([facility]) ID Date Data Source [id number] 09/13/2020 05:35:00 PM EST NORM ([facility]) Name Value Range Interpretation Code Description Data Jania rce(s) Supporting Document(s) D-dimer quant < 270 <500 D-dimer Quant NORM ( [facility]) ID Date Data Source [id number] 09/13/2020 05:35:00 PM EST NORM ([facility]) Name Value Range Interpretation Code Description Data Jania rce(s) Supporting Document(s) prothrombin time 13.1 seconds 12.5-14.3 Prothrombin Time NORM ([facility]) INR Inr NORM ([facility]) partial thromboplastin time 31.0 seconds 24.2-38.5 Partial Thromboplastin Time NORM ([facility]) ID Date Data Source [id number] 09/13/2020 05:35:00 PM EST NORM ([facility]) Name Value Range Interpretation Code Description Data Jania rce(s) Supporting Document(s) lipase 179 U/L 73-393 Lipase NORM ([facility]) ID Date Data Source [id number] 09/13/2020 05:35:00 PM EST NORM ([facility]) Name Value Range Interpretation Code Description Data Jania rce(s) Supporting Document(s) glucose, fasting 93 mg/dL 70-100 Glucose, Fasting AT [facility]) blood urea nitrogen 10 mg/dL 7-18 Blood Urea Nitro gen MALDEN ([facility]) creatinine for GFR 1.03 mg/dL 0.70-1.30 Creatinine for GF R MALDEN ([facility]) glomerular filtration rate > 60.0 >60 Glomerula r Filtration Rate MALDEN ([facility]) sodium level 140 mEq/L 136-145 Sodium Level NORM (No [facility]) potassium serum 3.3 mEq/L 3.5-5.1 Below low normal Potassium Seru m MALDEN ([facility]) chloride level 101 mEq/L 98-107 Chloride Level MAL[place] ([facility]) anion gap 10 mEq/L 8-16 Anion Gap MALDEN ([facility]) carbon dioxide level 29 mEq/L 21-32 Carbon Dioxide Level MAL[place] ([facility]) calcium level 9.4 mg/dL 8.5-10.1 Calcium Level MALDEN ( [facility]) ID Date Data Source [id number] 09/13/2020 05:35:00 PM EST NORM ([facility]) Name Value Range Interpretation Code Description Data Jania rce(s) Supporting Document(s) alkaline phosphatase 72 U/L 45-117 Alkaline Phosph atase NORM ([facility]) AST/SGOT 16 U/L 7-37 AST/SGOT [place] ([facility]) ALT/SGPT 29 U/L 12-78 ALT/SGPT NORM ([facility]) bilirubin,direct < 0.1 0.0-0.2 Bilirubin,direct AT [facility] ([facility]) bilirubin,total 0.4 mg/dL 0.2-1.0 Bilirubin,total ATHE NA ([facility]) total protein 8.1 gm/dL 6.4-8.2 Total Protein NORM ( [facility]) albumin 4.7 gm/dL 3.2-5.2 Albumin NORM ([facility]) albumin/globulin ratio Albumin/globu veda Ratio NORM ([facility]) ID Date Data Source [id number] 09/13/2020 05:35:00 PM EST NORM ([facility]) Name Value Range Interpretation Code Description Data Jania rce(s) Supporting Document(s) CPK creatine phosphokinase 136 U/L 39-308 CPK Creat ine Phosphokinase NORM ([facility]) CK-mb value mass 1.3 NG/mL <3.6 CK-mb Value Mass AT [facility] ([facility]) mb/CK relative index < or =4 mb/CK Relative Index NORM ([facility]) troponin I < 0.02 < 0.10 Troponin I NORM ([facility]) ID Date Data Source [id number] 09/13/2020 05:35:00 PM EST NORM ([facility]) Name Value Range Interpretation Code Description Data Jania rce(s) Supporting Document(s) D-dimer quant < 270 <500 D-dimer Quant NORM ( [facility]) ID Date Data Source [id number] 09/13/2020 05:35:00 PM EST NORM ([facility]) Name Value Range Interpretation Code Description Data Jania rce(s) Supporting Document(s) prothrombin time 13.1 seconds 12.5-14.3 Prothrombin Time NORM ([facility]) INR Inr NORM ([facility]) partial thromboplastin time 31.0 seconds 24.2-38.5 Partial Thromboplastin Time NORM ([facility]) ID Date Data Source [id number] 09/13/2020 05:35:00 PM EST NORM ([facility]) Name Value Range Interpretation Code Description Data Jania rce(s) Supporting Document(s) lipase 179 U/L 73-393 Lipase NORM ([facility]) ID Date Data Source [id number] 09/13/2020 05:35:00 PM EST NORM ([facility]) Name Value Range Interpretation Code Description Data Jania rce(s) Supporting Document(s) glucose, fasting 93 mg/dL 70-100 Glucose, Fasting AT [facility]) creatinine for GFR 1.03 mg/dL 0.70-1.30 Creatinine for GF R MALDEN ([facility]) blood urea nitrogen 10 mg/dL 7-18 Blood Urea Nitro gen MALDEN ([facility]) glomerular filtration rate > 60.0 >60 Glomerula r Filtration Rate NORM ([facility]) sodium level 140 mEq/L 136-145 Sodium Level NORM ([facility]) chloride level 101 mEq/L 98-107 Chloride Level MAL[place] ([facility]) potassium serum 3.3 mEq/L 3.5-5.1 Below low normal Potassium Seru m MALDEN ([facility]) anion gap 10 mEq/L 8-16 Anion Gap MALDEN ([facility]) calcium level 9.4 mg/dL 8.5-10.1 Calcium Level NORM ( [facility]) carbon dioxide level 29 mEq/L 21-32 Carbon Dioxide Level MALDEN ([facility]) ID Date Data Source [id number] 09/13/2020 05:35:00 PM EST NORM ([facility]) Name Value Range Interpretation Code Description Data Jania rce(s) Supporting Document(s) AST/SGOT 16 U/L 7-37 AST/SGOT NORM ([facility]) ALT/SGPT 29 U/L 12-78 ALT/SGPT NORM ([facility]) alkaline phosphatase 72 U/L 45-117 Alkaline Phosph atase NORM ([facility]) bilirubin,total 0.4 mg/dL 0.2-1.0 Bilirubin,total ATHE ([facility]) bilirubin,direct < 0.1 0.0-0.2 Bilirubin,direct AT [facility] ([facility]) albumin 4.7 gm/dL 3.2-5.2 Albumin NORM ([facility]) total protein 8.1 gm/dL 6.4-8.2 Total Protein NORM ( [facility]) albumin/globulin ratio Albumin/globu veda Ratio NORM ([facility]) ID Date Data Source [id number] 09/13/2020 05:35:00 PM EST NORM ([facility]) Name Value Range Interpretation Code Description Data Jania rce(s) Supporting Document(s) CPK creatine phosphokinase 136 U/L 39-308 CPK Creat ine Phosphokinase NORM ([facility]) CK-mb value mass 1.3 NG/mL <3.6 CK-mb Value Mass AT [facility] ([facility]) mb/CK relative index < or =4 mb/CK Relative Index NORM ([facility]) troponin I < 0.02 < 0.10 Troponin I NORM ([facility]) ID Date Data Source [id number] 09/13/2020 05:35:00 PM EST NORM ([facility]) Name Value Range Interpretation Code Description Data Jania rce(s) Supporting Document(s) D-dimer quant < 270 <500 [facility] ID Date Data Source [id number] 09/13/2020 05:35:00 PM EST NORM ([facility]) Name Value Range Interpretation Code Description Data Jania rce(s) Supporting Document(s) prothrombin time 13.1 seconds 12.5-14.3 Prothrombin Time NORM ([facility]) partial thromboplastin time 31.0 seconds 24.2-38.5 Partial Thromboplastin Time NORM ([facility]) INR Inr NORM ([facility]) ID Date Data Source [id number] 09/13/2020 05:35:00 PM EST NORM ([facility]) Name Value Range Interpretation Code Description Data Jania rce(s) Supporting Document(s) lipase 179 U/L 73-393 Lipase NORM ([facility]) ID Date Data Source [id number] 09/13/2020 05:35:00 PM EST NORM ([facility]) Name Value Range Interpretation Code Description Data Jania rce(s) Supporting Document(s) glucose, fasting 93 mg/dL 70-100 Glucose, Fasting AT [facility]) blood urea nitrogen 10 mg/dL 7-18 Blood Urea Nitro gen NORM ([facility]) creatinine for GFR 1.03 mg/dL 0.70-1.30 Creatinine for GF R MALDEN ([facility]) glomerular filtration rate > 60.0 >60 Glomerula r Filtration Rate NORM ([facility]) carbon dioxide level 29 mEq/L 21-32 Carbon Dioxide Level MALDEN ([facility]) potassium serum 3.3 mEq/L 3.5-5.1 Below low normal Potassium Seru m NORM ([facility]) sodium level 140 mEq/L 136-145 Sodium Level NORM (No [facility]) chloride level 101 mEq/L 98-107 Chloride Level NORM ([facility]) calcium level 9.4 mg/dL 8.5-10.1 Calcium Level NORM ( [facility]) anion gap 10 mEq/L 8-16 Anion Gap MALDEN ([facility]) ID Date Data Source [id number] 09/13/2020 05:35:00 PM EST NORM ([facility]) Name Value Range Interpretation Code Description Data Jania rce(s) Supporting Document(s) alkaline phosphatase 72 U/L 45-117 Alkaline Phosph atase NORM ([facility]) AST/SGOT 16 U/L 7-37 AST/SGOT NORM ([facility]) ALT/SGPT 29 U/L 12-78 ALT/SGPT NORM ([facility]) bilirubin,total 0.4 mg/dL 0.2-1.0 Bilirubin,total ATHE NA ([facility]) bilirubin,direct < 0.1 0.0-0.2 Bilirubin,direct AT [facility] ([facility]) total protein 8.1 gm/dL 6.4-8.2 Total Protein NORM ( [facility]) albumin/globulin ratio Albumin/globu veda Ratio NORM ([facility]) albumin 4.7 gm/dL 3.2-5.2 Albumin NORM ([facility]) ID Date Data Source [id number] 09/13/2020 05:35:00 PM EST NORM ([facility]) Name Value Range Interpretation Code Description Data Jania rce(s) Supporting Document(s) mb/CK relative index < or =4 mb/CK Relative Index NORM ([facility]) CK-mb value mass 1.3 NG/mL <3.6 CK-mb Value Mass AT [facility] ([facility]) CPK creatine phosphokinase 136 U/L 39-308 CPK Creat ine Phosphokinase NORM ([facility]) troponin I < 0.02 < 0.10 Troponin I NORM ([facility]) ID Date Data Source [id number] 09/13/2020 05:35:00 PM EST NORM ([facility]) Name Value Range Interpretation Code Description Data Jania rce(s) Supporting Document(s) D-dimer quant < 270 <500 D-dimer Quant NORM ( [facility]) ID Date Data Source [id number] 09/13/2020 05:35:00 PM EST NORM ([facility]) Name Value Range Interpretation Code Description Data Jania rce(s) Supporting Document(s) prothrombin time 13.1 seconds 12.5-14.3 Prothrombin Time NORM ([facility]) partial thromboplastin time 31.0 seconds 24.2-38.5 Partial Thromboplastin Time NORM ([facility]) INR Inr MAL[place] ([facility]) ID Date Data Source [id number] 09/13/2020 05:35:00 PM EST NORM ([facility]) Name Value Range Interpretation Code Description Data Jania rce(s) Supporting Document(s) lipase 179 U/L 73-393 Lipase MALDEN ([facility]) ID Date Data Source [id number] 09/13/2020 05:35:00 PM EST NORM ([facility] [facility] Name Value Range Interpretation Code Description Data Jania rce(s) Supporting Document(s) glucose, fasting 93 mg/dL 70-100 Glucose, Fasting AT [facility]) blood urea nitrogen 10 mg/dL 7-18 Blood Urea Nitro gen [place] ([facility]) creatinine for GFR 1.03 mg/dL 0.70-1.30 Creatinine for GF R MALDEN ([facility]) glomerular filtration rate > 60.0 >60 Glomerula r Filtration Rate [place] ([facility]) sodium level 140 mEq/L 136-145 Sodium Level NORM (No [facility]) potassium serum 3.3 mEq/L 3.5-5.1 Below low normal Potassium Seru m MAL[place] ([facility]) anion gap 10 mEq/L 8-16 Anion Gap NORM ([facility]) chloride level 101 mEq/L 98-107 Chloride Level MAL[place] ([facility]) carbon dioxide level 29 mEq/L 21-32 Carbon Dioxide Level [place] ([facility]) calcium level 9.4 mg/dL 8.5-10.1 Calcium Level [facility]) ID Date Data Source [id number] 09/13/2020 05:35:00 PM EST NORM ([facility]) Name Value Range Interpretation Code Description Data Jania rce(s) Supporting Document(s) alkaline phosphatase 72 U/L 45-117 Alkaline Phosph atase NORM ([facility]) AST/SGOT 16 U/L 7-37 AST/SGOT NORM ([facility]) ALT/SGPT 29 U/L 12-78 ALT/SGPT NORM ([facility]) bilirubin,total 0.4 mg/dL 0.2-1.0 Bilirubin,total [facility] ([facility]) total protein 8.1 gm/dL 6.4-8.2 Total Protein NORM ( [facility]) bilirubin,direct < 0.1 0.0-0.2 Bilirubin,direct AT [facility] ([facility]) albumin 4.7 gm/dL 3.2-5.2 Albumin NORM ([facility]) albumin/globulin ratio Albumin/globu veda Ratio NORM ([facility]) ID Date Data Source [id number] 09/13/2020 05:35:00 PM EST NORM ([facility]) Name Value Range Interpretation Code Description Data Jania rce(s) Supporting Document(s) CK-mb value mass 1.3 NG/mL <3.6 CK-mb Value Mass AT [facility] ([facility]) CPK creatine phosphokinase 136 U/L 39-308 CPK Creat ine Phosphokinase NORM ([facility]) mb/CK relative index < or =4 mb/CK Relative Index NORM ([facility]) troponin I < 0.02 < 0.10 Troponin I NORM ([facility]) ID Date Data Source [id number] 09/13/2020 05:35:00 PM EST NORM ([facility]) Name Value Range Interpretation Code Description Data Jania rce(s) Supporting Document(s) D-dimer quant < 270 <500 D-dimer Quant NORM ( [facility]) ID Date Data Source [id number] 09/13/2020 05:35:00 PM EST NORM ([facility]) Name Value Range Interpretation Code Description Data Jania rce(s) Supporting Document(s) INR Inr NORM ([facility]) prothrombin time 13.1 seconds 12.5-14.3 Prothrombin Time NROM ([facility]) partial thromboplastin time 31.0 seconds 24.2-38.5 Partial Thromboplastin Time [place] ([facility]) ID Date Data Source [id number] 09/13/2020 05:35:00 PM EST NORM ([facility]) Name Value Range Interpretation Code Description Data Jania rce(s) Supporting Document(s) lipase 179 U/L 73-393 Lipase [place] ([facility]) ID Date Data Source [id number] 09/13/2020 05:35:00 PM EST [place] ([facility]) Name Value Range Interpretation Code Description Data Jania rce(s) Supporting Document(s) glucose, fasting 93 mg/dL 70-100 Glucose, Fasting AT [facility]) blood urea nitrogen 10 mg/dL 7-18 Blood Urea Nitro gen MAL[place] ([facility]) glomerular filtration rate > 60.0 >60 Glomerula r Filtration Rate [place] ([facility]) creatinine for GFR 1.03 mg/dL 0.70-1.30 Creatinine for GF R MAL[place] ([facility]) chloride level 101 mEq/L 98-107 Chloride Level [place] ([facility]) sodium level 140 mEq/L 136-145 Sodium Level NORM (No [facility]) potassium serum 3.3 mEq/L 3.5-5.1 Below low normal Potassium Seru m [place] ([facility]) carbon dioxide level 29 mEq/L 21-32 Carbon Dioxide Level [place] ([facility]) anion gap 10 mEq/L 8-16 Anion Gap NORM ([facility]) calcium level 9.4 mg/dL 8.5-10.1 Calcium Level NORM ( [facility]) ID Date Data Source [id number] 09/13/2020 05:35:00 PM EST NORM ([facility]) Name Value Range Interpretation Code Description Data Jania rce(s) Supporting Document(s) AST/SGOT 16 U/L 7-37 AST/SGOT NORM ([facility]) ALT/SGPT 29 U/L 12-78 ALT/SGPT NORM ([facility]) alkaline phosphatase 72 U/L 45-117 Alkaline Phosph atase NORM ([facility]) bilirubin,total 0.4 mg/dL 0.2-1.0 Bilirubin,total AT[facility] ([facility]) total protein 8.1 gm/dL 6.4-8.2 Total Protein NORM ( [facility]) bilirubin,direct < 0.1 0.0-0.2 Bilirubin,direct AT [facility] ([facility]) albumin 4.7 gm/dL 3.2-5.2 Albumin NORM ([facility]) albumin/globulin ratio Albumin/globu veda Ratio NORM ([facility]) ID Date Data Source [id number] 09/13/2020 05:35:00 PM EST NORM ([facility]) Name Value Range Interpretation Code Description Data Jania rce(s) Supporting Document(s) CPK creatine phosphokinase 136 U/L 39-308 CPK Creat ine Phosphokinase NORM ([facility]) mb/CK relative index < or =4 mb/CK Relative Index NORM ([facility]) CK-mb value mass 1.3 NG/mL <3.6 CK-mb Value Mass AT [facility] ([facility]) troponin I < 0.02 < 0.10 Troponin I NORM ([facility]) ID Date Data Source [id number] 09/13/2020 05:35:00 PM EST NORM ([facility]) Name Value Range Interpretation Code Description Data Jania rce(s) Supporting Document(s) D-dimer quant < 270 <500 D-dimer Quant NORM ( [facility]) ID Date Data Source [id number] 09/13/2020 05:35:00 PM EST NORM ([facility]) Name Value Range Interpretation Code Description Data Jania rce(s) Supporting Document(s) INR Inr NORM ([facility]) prothrombin time 13.1 seconds 12.5-14.3 Prothrombin Time NORM ([facility]) partial thromboplastin time 31.0 seconds 24.2-38.5 Partial Thromboplastin Time [facility] ([facility]) ID Date Data Source [id number] 09/13/2020 05:35:00 PM EST NORM ([facility]) Name Value Range Interpretation Code Description Data Jania rce(s) Supporting Document(s) lipase 179 U/L 73-393 Lipase NORM ([facility]) ID Date Data Source [id number] 09/13/2020 05:35:00 PM EST NORM ([facility]) Name Value Range Interpretation Code Description Data Jania rce(s) Supporting Document(s) blood urea nitrogen 10 mg/dL 7-18 Blood Urea Nitro gen NORM ([facility]) glucose, fasting 93 mg/dL 70-100 Glucose, Fasting AT [facility] ([facility]) creatinine for GFR 1.03 mg/dL 0.70-1.30 Creatinine for GF R NORM ([facility]) sodium level 140 mEq/L 136-145 Sodium Level NORM (No [facility]) potassium serum 3.3 mEq/L 3.5-5.1 Below low normal Potassium Seru m [place] ([facility]) glomerular filtration rate > 60.0 >60 Glomerula r Filtration Rate [place] ([facility]) anion gap 10 mEq/L 8-16 Anion Gap NORM ([facility]) chloride level 101 mEq/L 98-107 Chloride Level NORM ([facility]) carbon dioxide level 29 mEq/L 21-32 Carbon Dioxide Level NORM ([facility]) calcium level 9.4 mg/dL 8.5-10.1 Calcium Level NORM ( [facility]) ID Date Data Source [id number] 09/13/2020 05:35:00 PM EST NORM ([facility]) Name Value Range Interpretation Code Description Data Jania rce(s) Supporting Document(s) ALT/SGPT 29 U/L 12-78 ALT/SGPT NORM ([facility]) alkaline phosphatase 72 U/L 45-117 Alkaline Phosph atase NORM ([facility]) AST/SGOT 16 U/L 7-37 AST/SGOT NORM ([facility]) bilirubin,direct < 0.1 0.0-0.2 Bilirubin,direct AT [facility] ([facility]) bilirubin,total 0.4 mg/dL 0.2-1.0 Bilirubin,total ATHE ([facility]) total protein 8.1 gm/dL 6.4-8.2 Total Protein NORM ( [facility]) albumin/globulin ratio Albumin/globu veda Ratio NORM ([facility]) albumin 4.7 gm/dL 3.2-5.2 Albumin NORM ([facility]) ID Date Data Source [id number] 09/13/2020 05:35:00 PM EST NORM ([facility]) Name Value Range Interpretation Code Description Data Jania rce(s) Supporting Document(s) CPK creatine phosphokinase 136 U/L 39-308 CPK Creat ine Phosphokinase NORM ([facility]) mb/CK relative index < or =4 mb/CK Relative Index NORM ([facility]) CK-mb value mass 1.3 NG/mL <3.6 CK-mb Value Mass AT [facility] ([facility]) troponin I < 0.02 < 0.10 Troponin I NORM ([facility]) ID Date Data Source [id number] 09/13/2020 05:35:00 PM EST NORM ([facility]) Name Value Range Interpretation Code Description Data Jania rce(s) Supporting Document(s) D-dimer quant < 270 <500 D-dimer Quant NORM ( [facility]) ID Date Data Source [id number] 09/13/2020 05:35:00 PM EST NORM ([facility]) Name Value Range Interpretation Code Description Data Jania rce(s) Supporting Document(s) prothrombin time 13.1 seconds 12.5-14.3 Prothrombin Time [facility] ([facility]) INR Inr [facility] ([facility]) partial thromboplastin time 31.0 seconds 24.2-38.5 Partial Thromboplastin Time [facility] ([facility]) ID Date Data Source [id number] 09/13/2020 05:35:00 PM EST NORM ([facility]) Name Value Range Interpretation Code Description Data Jania rce(s) Supporting Document(s) lipase 179 U/L 73-393 Lipase NORM ([facility]) ID Date Data Source [id number] 09/13/2020 05:35:00 PM EST NORM ([facility]) Name Value Range Interpretation Code Description Data Jania rce(s) Supporting Document(s) glucose, fasting 93 mg/dL 70-100 Glucose, Fasting AT [facility] ([facility]) creatinine for GFR 1.03 mg/dL 0.70-1.30 Creatinine for GF R MAL[place] ([facility]) blood urea nitrogen 10 mg/dL 7-18 Blood Urea Nitro gen NORM ([facility]) glomerular filtration rate > 60.0 >60 Glomerula r Filtration Rate [place] ([facility]) potassium serum 3.3 mEq/L 3.5-5.1 Below low normal Potassium Seru m NORM ([facility]) sodium level 140 mEq/L 136-145 Sodium Level NORM ([facility]) chloride level 101 mEq/L 98-107 Chloride Level NORM ([facility]) calcium level 9.4 mg/dL 8.5-10.1 Calcium Level NORM ( [facility]) carbon dioxide level 29 mEq/L 21-32 Carbon Dioxide Level NORM ([facility]) anion gap 10 mEq/L 8-16 Anion Gap NORM ([facility]) ID Date Data Source [id number] 09/13/2020 05:35:00 PM EST NORM ([facility]) Name Value Range Interpretation Code Description Data Jania rce(s) Supporting Document(s) AST/SGOT 16 U/L 7-37 AST/SGOT NORM ([facility]) ALT/SGPT 29 U/L 12-78 ALT/SGPT NORM ([facility]) bilirubin,total 0.4 mg/dL 0.2-1.0 Bilirubin,total [facility] ([facility]) bilirubin,direct < 0.1 0.0-0.2 Bilirubin,direct AT [facility]) alkaline phosphatase 72 U/L 45-117 Alkaline Phosph atase NORM ([facility]) albumin 4.7 gm/dL 3.2-5.2 Albumin NORM ([facility]) albumin/globulin ratio Albumin/globu veda Ratio NORM ([facility]) total protein 8.1 gm/dL 6.4-8.2 Total Protein NORM ( [facility]) ID Date Data Source [id number] 09/13/2020 05:35:00 PM EST NORM ([facility]) Name Value Range Interpretation Code Description Data Jania rce(s) Supporting Document(s) CK-mb value mass 1.3 NG/mL <3.6 CK-mb Value Mass AT [facility]) mb/CK relative index < or =4 mb/CK Relative Index NORM ([facility]) CPK creatine phosphokinase 136 U/L 39-308 CPK Creat ine Phosphokinase NORM ([facility]) troponin I < 0.02 < 0.10 Troponin I NORM ([facility]) ID Date Data Source [id number] 09/13/2020 05:35:00 PM EST NORM ([facility]) Name Value Range Interpretation Code Description Data Jania rce(s) Supporting Document(s) D-dimer quant < 270 <500 D-dimer Quant NORM ( [facility]) ID Date Data Source [id number] 09/13/2020 05:35:00 PM EST NORM ([facility]) Name Value Range Interpretation Code Description Data Jania rce(s) Supporting Document(s) INR Inr NORM ([facility]) prothrombin time 13.1 seconds 12.5-14.3 Prothrombin Time NORM ([facility]) partial thromboplastin time 31.0 seconds 24.2-38.5 Partial Thromboplastin Time NORM ([facility]) ID Date Data Source [id number] 09/13/2020 05:35:00 PM EST NORM ([facility]) Name Value Range Interpretation Code Description Data Jania rce(s) Supporting Document(s) lipase 179 U/L 73-393 Lipase NORM ([facility]) ID Date Data Source [id number] 09/13/2020 05:35:00 PM EST NORM ([facility]) Name Value Range Interpretation Code Description Data Jania rce(s) Supporting Document(s) glucose, fasting 93 mg/dL 70-100 Glucose, Fasting AT [facility] ([facility]) creatinine for GFR 1.03 mg/dL 0.70-1.30 Creatinine for GF R NORM ([facility]) blood urea nitrogen 10 mg/dL 7-18 Blood Urea Nitro gen NORM ([facility]) sodium level 140 mEq/L 136-145 Sodium Level NORM (No [facility]) glomerular filtration rate > 60.0 >60 Glomerula r Filtration Rate NORM ([facility]) potassium serum 3.3 mEq/L 3.5-5.1 Below low normal Potassium Seru m NORM ([facility]) calcium level 9.4 mg/dL 8.5-10.1 Calcium Level NORM ( [facility]) carbon dioxide level 29 mEq/L 21-32 Carbon Dioxide Level NORM ([facility]) anion gap 10 mEq/L 8-16 Anion Gap NORM ([facility]) chloride level 101 mEq/L 98-107 Chloride Level NORM ([facility]) ID Date Data Source [id number] 09/13/2020 05:35:00 PM EST NORM ([facility]) Name Value Range Interpretation Code Description Data Jania rce(s) Supporting Document(s) AST/SGOT 16 U/L 7-37 AST/SGOT NORM ([facility]) ALT/SGPT 29 U/L 12-78 ALT/SGPT NORM ([facility]) total protein 8.1 gm/dL 6.4-8.2 Total Protein NORM ( [facility]) bilirubin,direct < 0.1 0.0-0.2 Bilirubin,direct AT [facility] ([facility]) bilirubin,total 0.4 mg/dL 0.2-1.0 Bilirubin,total ATHE NA ([facility]) alkaline phosphatase 72 U/L 45-117 Alkaline Phosph atase NORM ([facility]) albumin/globulin ratio Albumin/globu veda Ratio NORM ([facility]) albumin 4.7 gm/dL 3.2-5.2 Albumin NORM ([facility]) ID Date Data Source [id number] 09/13/2020 05:35:00 PM EST NORM ([facility]) Name Value Range Interpretation Code Description Data Jania rce(s) Supporting Document(s) CPK creatine phosphokinase 136 U/L 39-308 CPK Creat ine Phosphokinase NORM ([facility]) mb/CK relative index < or =4 mb/CK Relative Index NORM ([facility]) troponin I < 0.02 < 0.10 Troponin I [place] ([facility]) CK-mb value mass 1.3 NG/mL <3.6 CK-mb Value Mass AT [facility] ([facility]) ID Date Data Source [id number] 09/13/2020 05:35:00 PM EST NORM ([facility]) Name Value Range Interpretation Code Description Data Jania rce(s) Supporting Document(s) D-dimer quant < 270 <500 D-dimer Quant [place] ( [facility]) ID Date Data Source [id number] 09/13/2020 05:35:00 PM EST NORM ([facility]) Name Value Range Interpretation Code Description Data Jania rce(s) Supporting Document(s) prothrombin time 13.1 seconds 12.5-14.3 Prothrombin Time [facility] ([facility]) INR Inr [facility] ([facility]) partial thromboplastin time 31.0 seconds 24.2-38.5 Partial Thromboplastin Time [facility] ([facility]) ID Date Data Source [id number] 09/13/2020 05:35:00 PM EST NORM ([facility]) Name Value Range Interpretation Code Description Data Jania rce(s) Supporting Document(s) lipase 179 U/L 73-393 Lipase NORM ([facility]) ID Date Data Source [id number] 09/13/2020 05:35:00 PM EST NORM ([facility]) Name Value Range Interpretation Code Description Data Jania rce(s) Supporting Document(s) blood urea nitrogen 10 mg/dL 7-18 Blood Urea Nitro gen NORM ([facility]) glucose, fasting 93 mg/dL 70-100 Glucose, Fasting AT [facility] ([facility]) creatinine for GFR 1.03 mg/dL 0.70-1.30 Creatinine for GF R NORM ([facility]) sodium level 140 mEq/L 136-145 Sodium Level NORM (No [facility]) potassium serum 3.3 mEq/L 3.5-5.1 Below low normal Potassium Seru m NORM ([facility]) glomerular filtration rate > 60.0 >60 Glomerula r Filtration Rate NORM ([facility]) chloride level 101 mEq/L 98-107 Chloride Level NORM ([facility]) carbon dioxide level 29 mEq/L 21-32 Carbon Dioxide Level NORM ([facility]) calcium level 9.4 mg/dL 8.5-10.1 Calcium Level [place] ( [facility]) anion gap 10 mEq/L 8-16 Anion Gap NORM ([facility]) ID Date Data Source [id number] 09/13/2020 05:35:00 PM EST NORM ([facility]) Name Value Range Interpretation Code Description Data Jania rce(s) Supporting Document(s) ALT/SGPT 29 U/L 12-78 ALT/SGPT NORM ([facility]) AST/SGOT 16 U/L 7-37 AST/SGOT NORM ([facility]) bilirubin,total 0.4 mg/dL 0.2-1.0 Bilirubin,total [facility] NA ([facility]) total protein 8.1 gm/dL 6.4-8.2 Total Protein NORM ( [facility]) bilirubin,direct < 0.1 0.0-0.2 Bilirubin,direct AT [facility] ([facility]) alkaline phosphatase 72 U/L 45-117 Alkaline Phosph atase NORM ([facility]) albumin/globulin ratio Albumin/globu veda Ratio NORM ([facility]) albumin 4.7 gm/dL 3.2-5.2 Albumin [facility] ([facility]) ID Date Data Source [id number] 09/13/2020 05:35:00 PM EST NORM ([facility]) Name Value Range Interpretation Code Description Data Jania rce(s) Supporting Document(s) CPK creatine phosphokinase 136 U/L 39-308 CPK Creat ine Phosphokinase NORM ([facility]) mb/CK relative index < or =4 mb/CK Relative Index NORM ([facility]) CK-mb value mass 1.3 NG/mL <3.6 CK-mb Value Mass AT [facility] ([facility]) troponin I < 0.02 < 0.10 Troponin I NORM ([facility]) ID Date Data Source [id number] 09/13/2020 05:35:00 PM EST NORM ([facility]) Name Value Range Interpretation Code Description Data Jania rce(s) Supporting Document(s) D-dimer quant < 270 <500 D-dimer Quant NORM ( [facility]) ID Date Data Source [id number] 09/13/2020 05:35:00 PM EST NORM ([facility]) Name Value Range Interpretation Code Description Data Jania rce(s) Supporting Document(s) prothrombin time 13.1 seconds 12.5-14.3 Prothrombin Time NORM ([facility]) INR Inr NORM ([facility]) partial thromboplastin time 31.0 seconds 24.2-38.5 Partial Thromboplastin Time NORM ([facility]) ID Date Data Source [id number] 09/13/2020 04:55:00 PM EST NORM ([facility]) Name Value Range Interpretation Code Description Data Jania rce(s) Supporting Document(s) istat troponin 0.00 NG/mL 0.00-0.08 Istat Troponin NORM ([facility]) ID Date Data Source [id number] 09/13/2020 04:55:00 PM EST NORM ([facility]) Name Value Range Interpretation Code Description Data Jania rce(s) Supporting Document(s) istat troponin 0.00 NG/mL 0.00-0.08 Istat Troponin NORM ([facility]) ID Date Data Source [id number] 09/13/2020 04:55:00 PM EST NORM ([facility]) Name Value Range Interpretation Code Description Data Jania rce(s) Supporting Document(s) istat troponin 0.00 NG/mL 0.00-0.08 Istat Troponin NORM ([facility]) ID Date Data Source [id number] 09/13/2020 04:55:00 PM EST NORM ([facility]) Name Value Range Interpretation Code Description Data Jania rce(s) Supporting Document(s) istat troponin 0.00 NG/mL 0.00-0.08 Istat Troponin NORM ([facility]) ID Date Data Source [id number] 09/13/2020 04:55:00 PM EST NORM ([facility]) Name Value Range Interpretation Code Description Data Jania rce(s) Supporting Document(s) istat troponin 0.00 NG/mL 0.00-0.08 Istat Troponin NORM ([facility]) ID Date Data Source [id number] 09/13/2020 04:55:00 PM EST NORM ([facility]) Name Value Range Interpretation Code Description Data Jania rce(s) Supporting Document(s) istat troponin 0.00 NG/mL 0.00-0.08 Istat Troponin NORM ([facility]) ID Date Data Source [id number] 09/13/2020 04:55:00 PM EST NORM ([facility]) Name Value Range Interpretation Code Description Data Jania rce(s) Supporting Document(s) istat troponin 0.00 NG/mL 0.00-0.08 Istat Troponin NORM ([facility]) ID Date Data Source [id number] 09/13/2020 04:55:00 PM EST NORM ([facility]) Name Value Range Interpretation Code Description Data Jania rce(s) Supporting Document(s) istat troponin 0.00 NG/mL 0.00-0.08 Istat Troponin NORM ([facility]) ID Date Data Source [id number] 09/13/2020 04:55:00 PM EST NORM ([facility]) Name Value Range Interpretation Code Description Data Jania rce(s) Supporting Document(s) istat troponin 0.00 NG/mL 0.00-0.08 Istat Troponin NORM ([facility]) ID Date Data Source [id number] 09/13/2020 04:55:00 PM EST NORM ([facility]) Name Value Range Interpretation Code Description Data Jania rce(s) Supporting Document(s) istat troponin 0.00 NG/mL 0.00-0.08 Istat Troponin NORM ([facility]) ID Date Data Source [id number] 09/13/2020 04:55:00 PM EST NORM ([facility]) Name Value Range Interpretation Code Description Data Jania rce(s) Supporting Document(s) istat troponin 0.00 NG/mL 0.00-0.08 Istat Troponin NORM ([facility]) ID Date Data Source [id number] 09/13/2020 04:54:00 PM EST NORM ([facility]) Name Value Range Interpretation Code Description Data Jania rce(s) Supporting Document(s) istat glucose 93 mg/dL 70-105 Istat Glucose NORM ( [facility]) istat HCT 49.0 % 38.0-51.0 Istat HCT NORM ([facility]) istat sodium 139 mEq/L 136-145 Istat Sodium NORM (No [facility]) istat potassium 3.1 mEq/L 3.5-5.1 Below low normal Istat Potassiu m NORM ([facility]) istat chloride 101 mEq/L 98-109 Istat Chloride NORM ([facility]) istat Ca++ 4.5 mg/dL 4.5-5.3 Istat Ca++ NORM ([facility]) istat CO2 28.0 mm/L 23.0-27.0 Above high normal Istat CO2 [place] ([facility]) istat BUN 10 mg/dL 8-26 Istat BUN [place] ([facility]) istat creatinine 0.9 mg/dL 0.6-1.3 Istat Creatinine AT [facility] ([facility]) ID Date Data Source [id number] 09/13/2020 04:54:00 PM EST [place] ([facility]) Name Value Range Interpretation Code Description Data Jania rce(s) Supporting Document(s) istat HCT 49.0 % 38.0-51.0 Istat HCT [place] ([facility]) istat glucose 93 mg/dL 70-105 Istat Glucose NORM ( [facility]) istat sodium 139 mEq/L 136-145 Istat Sodium NORM ([facility]) istat potassium 3.1 mEq/L 3.5-5.1 Below low normal Istat Potassiu m NORM ([facility]) istat Ca++ 4.5 mg/dL 4.5-5.3 Istat Ca++ NORM ([facility]) istat chloride 101 mEq/L 98-109 Istat Chloride NORM ([facility]) istat CO2 28.0 mm/L 23.0-27.0 Above high normal Istat CO2 NORM ([facility]) istat BUN 10 mg/dL 8-26 Istat BUN NORM ([facility]) istat creatinine 0.9 mg/dL 0.6-1.3 Istat Creatinine AT [facility] ([facility]) ID Date Data Source [id number] 09/13/2020 04:54:00 PM EST NORM ([facility]) Name Value Range Interpretation Code Description Data Jania rce(s) Supporting Document(s) istat HCT 49.0 % 38.0-51.0 Istat HCT NORM ([facility]) istat glucose 93 mg/dL 70-105 Istat Glucose NORM ( [facility]) istat sodium 139 mEq/L 136-145 Istat Sodium NORM ([facility]) istat potassium 3.1 mEq/L 3.5-5.1 Below low normal Istat Potassiu m NORM ([facility]) istat Ca++ 4.5 mg/dL 4.5-5.3 Istat Ca++ [place] ([facility]) istat CO2 28.0 mm/L 23.0-27.0 Above high normal Istat CO2 [place] ([facility]) istat chloride 101 mEq/L 98-109 Istat Chloride [place] ([facility]) istat creatinine 0.9 mg/dL 0.6-1.3 Istat Creatinine AT [facility] ([facility]) istat BUN 10 mg/dL 8-26 Istat BUN NORM ([facility]) ID Date Data Source [id number] 09/13/2020 04:54:00 PM EST NORM ([facility]) Name Value Range Interpretation Code Description Data Jania rce(s) Supporting Document(s) istat HCT 49.0 % 38.0-51.0 Istat HCT NORM ([facility]) istat glucose 93 mg/dL 70-105 Istat Glucose NORM ( [facility]) istat potassium 3.1 mEq/L 3.5-5.1 Below low normal Istat Potassiu m NORM ([facility]) istat sodium 139 mEq/L 136-145 Istat Sodium NORM (No [facility]) istat Ca++ 4.5 mg/dL 4.5-5.3 Istat Ca++ NORM ([facility]) istat chloride 101 mEq/L 98-109 Istat Chloride NORM ([facility]) istat CO2 28.0 mm/L 23.0-27.0 Above high normal Istat CO2 NORM ([facility]) istat BUN 10 mg/dL 8-26 Istat BUN [place] ([facility]) istat creatinine 0.9 mg/dL 0.6-1.3 Istat Creatinine AT [facility] ([facility]) ID Date Data Source [id number] 09/13/2020 04:54:00 PM EST [place] ([facility]) Name Value Range Interpretation Code Description Data Jania rce(s) Supporting Document(s) istat HCT 49.0 % 38.0-51.0 Istat HCT NORM ([facility]) istat sodium 139 mEq/L 136-145 Istat Sodium NORM (No [facility]) istat glucose 93 mg/dL 70-105 Istat Glucose NORM ( [facility]) istat Ca++ 4.5 mg/dL 4.5-5.3 Istat Ca++ NORM ([facility]) istat chloride 101 mEq/L 98-109 Istat Chloride NORM ([facility]) istat potassium 3.1 mEq/L 3.5-5.1 Below low normal Istat Potassiu m NORM ([facility]) istat BUN 10 mg/dL 8-26 Istat BUN NORM ([facility]) istat CO2 28.0 mm/L 23.0-27.0 Above high normal Istat CO2 NORM ([facility]) istat creatinine 0.9 mg/dL 0.6-1.3 Istat Creatinine AT [facility]) ID Date Data Source [id number] 09/13/2020 04:54:00 PM EST NORM ([facility]) Name Value Range Interpretation Code Description Data Jania rce(s) Supporting Document(s) istat HCT 49.0 % 38.0-51.0 Istat HCT NORM ([facility]) istat glucose 93 mg/dL 70-105 Istat Glucose [place] ( [facility]) istat sodium 139 mEq/L 136-145 Istat Sodium NORM ([facility]) istat potassium 3.1 mEq/L 3.5-5.1 Below low normal Istat Potassiu m [place] ([facility]) istat chloride 101 mEq/L 98-109 Istat Chloride [place] ([facility]) istat CO2 28.0 mm/L 23.0-27.0 Above high normal Istat CO2 [place] ([facility]) istat Ca++ 4.5 mg/dL 4.5-5.3 Istat Ca++ [place] ([facility]) istat BUN 10 mg/dL 8-26 Istat BUN [place] ([facility]) istat creatinine 0.9 mg/dL 0.6-1.3 Istat Creatinine AT [facility]) ID Date Data Source [id number] 09/13/2020 04:54:00 PM EST [place] ([facility]) Name Value Range Interpretation Code Description Data Jania rce(s) Supporting Document(s) istat HCT 49.0 % 38.0-51.0 Istat HCT NORM ([facility]) istat glucose 93 mg/dL 70-105 Istat Glucose NORM ( [facility]) istat potassium 3.1 mEq/L 3.5-5.1 Below low normal Istat Potassiu m NORM ([facility]) istat sodium 139 mEq/L 136-145 Istat Sodium NORM (No [facility]) istat chloride 101 mEq/L 98-109 Istat Chloride NORM ([facility]) istat Ca++ 4.5 mg/dL 4.5-5.3 Istat Ca++ NORM ([facility]) istat CO2 28.0 mm/L 23.0-27.0 Above high normal Istat CO2 NORM ([facility]) istat BUN 10 mg/dL 8-26 Istat BUN [place] ([facility]) istat creatinine 0.9 mg/dL 0.6-1.3 Istat Creatinine AT [facility]) ID Date Data Source [id number] 09/13/2020 04:54:00 PM EST NORM ([facility]) Name Value Range Interpretation Code Description Data Jania rce(s) Supporting Document(s) istat HCT 49.0 % 38.0-51.0 Istat HCT [place] ([facility]) istat glucose 93 mg/dL 70-105 Istat Glucose NORM ( [facility]) istat sodium 139 mEq/L 136-145 Istat Sodium NORM ([facility]) istat chloride 101 mEq/L 98-109 Istat Chloride NORM ([facility]) istat potassium 3.1 mEq/L 3.5-5.1 Below low normal Istat Potassiu m NORM ([facility]) istat Ca++ 4.5 mg/dL 4.5-5.3 Istat Ca++ NORM ([facility]) istat CO2 28.0 mm/L 23.0-27.0 Above high normal Istat CO2 NORM ([facility]) istat BUN 10 mg/dL 8-26 Istat BUN NORM ([facility]) istat creatinine 0.9 mg/dL 0.6-1.3 Istat Creatinine AT [facility] ([facility]) ID Date Data Source [id number] 09/13/2020 04:54:00 PM EST NORM ([facility]) Name Value Range Interpretation Code Description Data Jania rce(s) Supporting Document(s) istat HCT 49.0 % 38.0-51.0 Istat HCT NORM ([facility]) istat glucose 93 mg/dL 70-105 Istat Glucose [place] ( [facility]) istat Ca++ 4.5 mg/dL 4.5-5.3 Istat Ca++ [place] ([facility]) istat potassium 3.1 mEq/L 3.5-5.1 Below low normal Istat Potassiu m [place] ([facility]) istat sodium 139 mEq/L 136-145 Istat Sodium NORM ([facility]) istat CO2 28.0 mm/L 23.0-27.0 Above high normal Istat CO2 [place] ([facility]) istat chloride 101 mEq/L 98-109 Istat Chloride [place] ([facility]) istat creatinine 0.9 mg/dL 0.6-1.3 Istat Creatinine AT [facility] ([facility]) istat BUN 10 mg/dL 8-26 Istat BUN [place] ([facility]) ID Date Data Source [id number] 09/13/2020 04:54:00 PM EST NORM ([facility]) Name Value Range Interpretation Code Description Data Jania rce(s) Supporting Document(s) istat HCT 49.0 % 38.0-51.0 Istat HCT NORM ([facility]) istat glucose 93 mg/dL 70-105 Istat Glucose NORM ( [facility]) istat potassium 3.1 mEq/L 3.5-5.1 Below low normal Istat Potassiu m NORM ([facility]) istat Ca++ 4.5 mg/dL 4.5-5.3 Istat Ca++ NORM ([facility]) istat sodium 139 mEq/L 136-145 Istat Sodium NORM (No [facility]) istat CO2 28.0 mm/L 23.0-27.0 Above high normal Istat CO2 NORM ([facility]) istat BUN 10 mg/dL 8-26 Istat BUN NORM ([facility]) istat chloride 101 mEq/L 98-109 Istat Chloride NORM ([facility]) istat creatinine 0.9 mg/dL 0.6-1.3 Istat Creatinine AT [facility]) ID Date Data Source [id number] 09/13/2020 04:54:00 PM EST [place] ([facility]) Name Value Range Interpretation Code Description Data Jania rce(s) Supporting Document(s) istat HCT 49.0 % 38.0-51.0 Istat HCT NORM ([facility]) istat glucose 93 mg/dL 70-105 Istat Glucose NORM ( [facility]) istat Ca++ 4.5 mg/dL 4.5-5.3 Istat Ca++ [place] ([facility]) istat potassium 3.1 mEq/L 3.5-5.1 Below low normal Istat Potassiu m NORM ([facility]) istat sodium 139 mEq/L 136-145 Istat Sodium NORM ([facility]) istat BUN 10 mg/dL 8-26 Istat BUN NORM ([facility]) istat CO2 28.0 mm/L 23.0-27.0 Above high normal Istat CO2 NORM ([facility]) istat chloride 101 mEq/L 98-109 Istat Chloride NORM ([facility]) istat creatinine 0.9 mg/dL 0.6-1.3 Istat Creatinine AT [facility] ([facility]) ID Date Data Source [id number] 09/13/2020 04:51:00 PM EST NORM ([facility]) Name Value Range Interpretation Code Description Data Jania rce(s) Supporting Document(s) white blood count 7.6 10 4.0-10.0 White Blood Count NORM ([facility]) red blood count 5.44 10 4.30-6.10 Red Blood Count ATHE NA ([facility]) hematocrit 47.7 % 42.0-52.0 Hematocrit NORM ([facility]) hemoglobin 15.8 g/dL 13.5-17.5 Hemoglobin NORM ([facility]) mean corpuscular volume 87.7 fL 80.0-96.0 Mean Corpusc ular Volume NORM ([facility]) mean corpuscular hemoglobin 29.0 pg 27.0-33.0 Mean Cor puscular Hemoglobin NORM ([facility]) mean corpuscular HGB conc 33.1 g/dL 32.0-36.5 Mean Corpu scular HGB Conc NORM ([facility]) platelet count, automated 284 10 150-450 Platelet C ount, Automated NORM ([facility]) red cell distribution width 11.9 % 11.5-14.5 Red Cell Distribution Width NORM ([facility]) nucleated red blood cell % 0.0 % 0-0 Nucleated Red Blood Cell % NORM ([facility]) ID Date Data Source [id number] 09/13/2020 04:51:00 PM EST NORM ([facility]) Name Value Range Interpretation Code Description Data Jania rce(s) Supporting Document(s) white blood count 7.6 10 4.0-10.0 White Blood Count NORM ([facility]) red blood count 5.44 10 4.30-6.10 Red Blood Count ATHE NA ([facility]) hematocrit 47.7 % 42.0-52.0 Hematocrit NORM ([facility]) hemoglobin 15.8 g/dL 13.5-17.5 Hemoglobin NORM ([facility]) mean corpuscular volume 87.7 fL 80.0-96.0 Mean Corpusc ular Volume NORM ([facility]) mean corpuscular hemoglobin 29.0 pg 27.0-33.0 Mean Cor puscular Hemoglobin NORM ([facility]) mean corpuscular HGB conc 33.1 g/dL 32.0-36.5 Mean Corpu scular HGB Conc NORM ([facility]) red cell distribution width 11.9 % 11.5-14.5 Red Cell Distribution Width NORM ([facility]) platelet count, automated 284 10 150-450 Platelet C ount, Automated NORM ([facility]) nucleated red blood cell % 0.0 % 0-0 Nucleated Red Blood Cell % NORM ([facility]) ID Date Data Source [id number] 09/13/2020 04:51:00 PM EST NORM ([facility]) Name Value Range Interpretation Code Description Data Jania rce(s) Supporting Document(s) white blood count 7.6 10 4.0-10.0 White Blood Count NORM ([facility]) red blood count 5.44 10 4.30-6.10 Red Blood Count ATHE NA ([facility]) hematocrit 47.7 % 42.0-52.0 Hematocrit NORM ([facility]) hemoglobin 15.8 g/dL 13.5-17.5 Hemoglobin NORM ([facility]) mean corpuscular volume 87.7 fL 80.0-96.0 Mean Corpusc ular Volume NORM ([facility]) mean corpuscular hemoglobin 29.0 pg 27.0-33.0 Mean Cor puscular Hemoglobin NORM ([facility]) red cell distribution width 11.9 % 11.5-14.5 Red Cell Distribution Width NORM ([facility]) mean corpuscular HGB conc 33.1 g/dL 32.0-36.5 Mean Corpu scular HGB Conc NORM ([facility]) nucleated red blood cell % 0.0 % 0-0 Nucleated Red Blood Cell % NORM ([facility]) platelet count, automated 284 10 150-450 Platelet C ount, Automated NORM ([facility]) ID Date Data Source [id number] 09/13/2020 04:51:00 PM EST NORM ([facility]) Name Value Range Interpretation Code Description Data Jania rce(s) Supporting Document(s) white blood count 7.6 10 4.0-10.0 White Blood Count NORM ([facility]) hematocrit 47.7 % 42.0-52.0 Hematocrit NORM ([facility]) hemoglobin 15.8 g/dL 13.5-17.5 Hemoglobin NORM ([facility]) red blood count 5.44 10 4.30-6.10 Red Blood Count ATHE ([facility]) mean corpuscular volume 87.7 fL 80.0-96.0 Mean Corpusc ular Volume NORM ([facility]) mean corpuscular hemoglobin 29.0 pg 27.0-33.0 Mean Cor puscular Hemoglobin NORM ([facility]) platelet count, automated 284 10 150-450 Platelet C ount, Automated NORM ([facility]) mean corpuscular HGB conc 33.1 g/dL 32.0-36.5 Mean Corpu scular HGB Conc NORM ([facility]) red cell distribution width 11.9 % 11.5-14.5 Red Cell Distribution Width NORM ([facility]) nucleated red blood cell % 0.0 % 0-0 Nucleated Red Blood Cell % NORM ([facility]) ID Date Data Source [id number] 09/13/2020 04:51:00 PM EST NORM ([facility]) Name Value Range Interpretation Code Description Data Jania rce(s) Supporting Document(s) white blood count 7.6 10 4.0-10.0 White Blood Count NORM ([facility]) red blood count 5.44 10 4.30-6.10 Red Blood Count ATHE NA ([facility]) hemoglobin 15.8 g/dL 13.5-17.5 Hemoglobin NORM ([facility]) mean corpuscular hemoglobin 29.0 pg 27.0-33.0 Mean Cor puscular Hemoglobin NORM ([facility]) mean corpuscular volume 87.7 fL 80.0-96.0 Mean Corpusc ular Volume NORM ([facility]) hematocrit 47.7 % 42.0-52.0 Hematocrit NORM ([facility]) mean corpuscular HGB conc 33.1 g/dL 32.0-36.5 Mean Corpu scular HGB Conc NORM ([facility]) red cell distribution width 11.9 % 11.5-14.5 Red Cell Distribution Width NORM ([facility]) platelet count, automated 284 10 150-450 Platelet C ount, Automated NORM ([facility]) nucleated red blood cell % 0.0 % 0-0 Nucleated Red Blood Cell % NORM ([facility]) ID Date Data Source [id number] 09/13/2020 04:51:00 PM EST NORM ([facility]) Name Value Range Interpretation Code Description Data Jania rce(s) Supporting Document(s) white blood count 7.6 10 4.0-10.0 White Blood Count NORM ([facility]) red blood count 5.44 10 4.30-6.10 Red Blood Count ATHE NA ([facility]) hematocrit 47.7 % 42.0-52.0 Hematocrit NORM ([facility]) mean corpuscular volume 87.7 fL 80.0-96.0 Mean Corpusc ular Volume NORM ([facility]) hemoglobin 15.8 g/dL 13.5-17.5 Hemoglobin NORM ([facility]) red cell distribution width 11.9 % 11.5-14.5 Red Cell Distribution Width NORM ([facility]) mean corpuscular hemoglobin 29.0 pg 27.0-33.0 Mean Cor puscular Hemoglobin NORM ([facility]) mean corpuscular HGB conc 33.1 g/dL 32.0-36.5 Mean Corpu scular HGB Conc NORM ([facility]) nucleated red blood cell % 0.0 % 0-0 Nucleated Red Blood Cell % NORM ([facility]) platelet count, automated 284 10 150-450 Platelet C ount, Automated NORM ([facility]) ID Date Data Source [id number] 09/13/2020 04:51:00 PM EST NORM ([facility]) Name Value Range Interpretation Code Description Data Jania rce(s) Supporting Document(s) white blood count 7.6 10 4.0-10.0 White Blood Count NORM ([facility]) hemoglobin 15.8 g/dL 13.5-17.5 Hemoglobin NORM ([facility]) red blood count 5.44 10 4.30-6.10 Red Blood Count ATHE NA ([facility]) mean corpuscular volume 87.7 fL 80.0-96.0 Mean Corpusc ular Volume NORM ([facility]) mean corpuscular hemoglobin 29.0 pg 27.0-33.0 Mean Cor puscular Hemoglobin NORM ([facility]) hematocrit 47.7 % 42.0-52.0 Hematocrit NORM ([facility]) red cell distribution width 11.9 % 11.5-14.5 Red Cell Distribution Width NORM ([facility]) mean corpuscular HGB conc 33.1 g/dL 32.0-36.5 Mean Corpu scular HGB Conc NORM ([facility]) nucleated red blood cell % 0.0 % 0-0 Nucleated Red Blood Cell % NORM ([facility]) platelet count, automated 284 10 150-450 Platelet C ount, Automated NORM ([facility]) ID Date Data Source [id number] 09/13/2020 04:51:00 PM EST NORM ([facility]) Name Value Range Interpretation Code Description Data Jania rce(s) Supporting Document(s) white blood count 7.6 10 4.0-10.0 White Blood Count NORM ([facility]) red blood count 5.44 10 4.30-6.10 Red Blood Count ATHE NA ([facility]) mean corpuscular volume 87.7 fL 80.0-96.0 Mean Corpusc ular Volume NORM ([facility]) hematocrit 47.7 % 42.0-52.0 Hematocrit NORM ([facility]) hemoglobin 15.8 g/dL 13.5-17.5 Hemoglobin NORM ([facility]) mean corpuscular hemoglobin 29.0 pg 27.0-33.0 Mean Cor puscular Hemoglobin NORM ([facility]) red cell distribution width 11.9 % 11.5-14.5 Red Cell Distribution Width NORM ([facility]) mean corpuscular HGB conc 33.1 g/dL 32.0-36.5 Mean Corpu scular HGB Conc NORM ([facility]) platelet count, automated 284 10 150-450 Platelet C ount, Automated NORM ([facility]) nucleated red blood cell % 0.0 % 0-0 Nucleated Red Blood Cell % NORM ([facility]) ID Date Data Source [id number] 09/13/2020 04:51:00 PM EST NORM ([facility]) Name Value Range Interpretation Code Description Data Jania rce(s) Supporting Document(s) white blood count 7.6 10 4.0-10.0 White Blood Count NORM ([facility]) hematocrit 47.7 % 42.0-52.0 Hematocrit NORM ([facility]) red blood count 5.44 10 4.30-6.10 Red Blood Count ATHE NA ([facility]) hemoglobin 15.8 g/dL 13.5-17.5 Hemoglobin NORM ([facility]) mean corpuscular volume 87.7 fL 80.0-96.0 Mean Corpusc ular Volume NORM ([facility]) mean corpuscular hemoglobin 29.0 pg 27.0-33.0 Mean Cor puscular Hemoglobin NORM ([facility]) red cell distribution width 11.9 % 11.5-14.5 Red Cell Distribution Width NORM ([facility]) mean corpuscular HGB conc 33.1 g/dL 32.0-36.5 Mean Corpu scular HGB Conc NORM ([facility]) platelet count, automated 284 10 150-450 Platelet C ount, Automated NORM ([facility]) nucleated red blood cell % 0.0 % 0-0 Nucleated Red Blood Cell % NORM ([facility]) ID Date Data Source [id number] 09/13/2020 04:51:00 PM EST NORM ([facility]) Name Value Range Interpretation Code Description Data Jania rce(s) Supporting Document(s) white blood count 7.6 10 4.0-10.0 White Blood Count NORM ([facility]) red blood count 5.44 10 4.30-6.10 Red Blood Count ATHE NA ([facility]) hemoglobin 15.8 g/dL 13.5-17.5 Hemoglobin NORM ([facility]) mean corpuscular volume 87.7 fL 80.0-96.0 Mean Corpusc ular Volume NORM ([facility]) mean corpuscular hemoglobin 29.0 pg 27.0-33.0 Mean Cor puscular Hemoglobin NORM ([facility]) hematocrit 47.7 % 42.0-52.0 Hematocrit NORM ([facility]) mean corpuscular HGB conc 33.1 g/dL 32.0-36.5 Mean Corpu scular HGB Conc NORM ([facility]) platelet count, automated 284 10 150-450 Platelet C ount, Automated NORM ([facility]) red cell distribution width 11.9 % 11.5-14.5 Red Cell Distribution Width NORM ([facility] [facility]) nucleated red blood cell % 0.0 % 0-0 Nucleated Red Blood Cell % NORM ([facility]) ID Date Data Source [id number] 09/13/2020 04:51:00 PM EST NORM ([facility]) Name Value Range Interpretation Code Description Data Jania rce(s) Supporting Document(s) red blood count 5.44 10 4.30-6.10 Red Blood Count ATHE NA ([facility]) white blood count 7.6 10 4.0-10.0 White Blood Count NORM ([facility]) mean corpuscular volume 87.7 fL 80.0-96.0 Mean Corpusc ular Volume NORM ([facility]) hematocrit 47.7 % 42.0-52.0 Hematocrit NORM ([facility]) hemoglobin 15.8 g/dL 13.5-17.5 Hemoglobin NORM ([facility]) mean corpuscular HGB conc 33.1 g/dL 32.0-36.5 Mean Corpu scular HGB Conc NORM ([facility]) mean corpuscular hemoglobin 29.0 pg 27.0-33.0 Mean Cor puscular Hemoglobin NORM ([facility]) red cell distribution width 11.9 % 11.5-14.5 Red Cell Distribution Width NORM ([facility]) nucleated red blood cell % 0.0 % 0-0 Nucleated Red Blood Cell % NORM ([facility]) platelet count, automated 284 10 150-450 Platelet C ount, Automated NORM ([facility]) ID Date Data Source [id number] 09/06/2020 08:48:00 AM EST NORM ([facility]) Name Value Range Interpretation Code Description Data Jania rce(s) Supporting Document(s) total 25(oh) vitamin D 15.0 NG/mL 30.0-100.0 Below low normal T otal 25(Oh) Vitamin D NORM ([facility]) ID Date Data Source [id number] 09/06/2020 08:48:00 AM EST NORM ([facility]) Name Value Range Interpretation Code Description Data Jania rce(s) Supporting Document(s) free T4 0.78 NG/dL 0.76-1.46 Free T4 NORM ([facility]) thyroid stimulating hormone 9.020 uIU/mL 0.358-3.740 Above high no rmal Thyroid Stimulating Hormone NORM ([facility]) ID Date Data Source [id number] 09/06/2020 08:48:00 AM EST NORM ([facility]) Name Value Range Interpretation Code Description Data Jania rce(s) Supporting Document(s) triglycerides level 145 mg/dL <150 Triglycerides Le matthew NORM ([facility]) HDL cholesterol 44 mg/dL >40 HDL Cholesterol [facility] ([facility]) non-HDL-C 220 mg/dL Non-hdl-c NORM ([facility]) cholesterol level 264 mg/dL <200 Above high normal Cholesterol Level NORM ([facility]) cholesterol risk ratio <5 Above high normal Choles terol Risk Ratio NORM ([facility]) Cholesterol in LDL [Mass/volume] in Serum or Plasma 191 mg/dL <100 Above high normal LDL Cholesterol NORM ([facility]) ID Date Data Source [id number] 09/06/2020 08:48:00 AM EST [place] ([facility]) Name Value Range Interpretation Code Description Data Jania rce(s) Supporting Document(s) glucose, fasting 82 mg/dL 70-100 Glucose, Fasting AT [facility] ([facility]) creatinine for GFR 1.07 mg/dL 0.70-1.30 Creatinine for GF R NORM ([facility]) sodium level 138 mEq/L 136-145 Sodium Level NORM ([facility]) glomerular filtration rate > 60.0 >60 Glomerula r Filtration Rate NORM ([facility]) blood urea nitrogen 11 mg/dL 7-18 Blood Urea Nitro gen NORM ([facility]) chloride level 101 mEq/L 98-107 Chloride Level NORM ([facility]) anion gap 7 mEq/L 8-16 Below low normal Anion Gap NORM ( [facility]) carbon dioxide level 30 mEq/L 21-32 Carbon Dioxide Level NORM ([facility]) potassium serum 4.5 mEq/L 3.5-5.1 Potassium Serum ATHE NA ([facility]) ALT/SGPT 38 U/L 12-78 ALT/SGPT NORM ([facility]) AST/SGOT 20 U/L 7-37 AST/SGOT NORM ([facility]) alkaline phosphatase 79 U/L 45-117 Alkaline Phosph atase NORM ([facility]) calcium level 9.2 mg/dL 8.5-10.1 Calcium Level NORM ( [facility]) albumin 4.7 gm/dL 3.2-5.2 Albumin NORM ([facility]) bilirubin,total 0.7 mg/dL 0.2-1.0 Bilirubin,total ATHE ([facility]) albumin/globulin ratio Albumin/globu veda Ratio NORM ([facility]) total protein 8.0 gm/dL 6.4-8.2 Total Protein NORM ( [facility]) ID Date Data Source [id number] 09/06/2020 08:48:00 AM EST NORM ([facility]) Name Value Range Interpretation Code Description Data Jania rce(s) Supporting Document(s) white blood count 5.8 10 4.0-10.0 White Blood Count NORM ([facility]) hemoglobin 16.3 g/dL 13.5-17.5 Hemoglobin NORM ([facility]) red blood count 5.59 10 4.30-6.10 Red Blood Count ATHE ([facility]) mean corpuscular volume 89.1 fL 80.0-96.0 Mean Corpusc ular Volume NORM ([facility]) hematocrit 49.8 % 42.0-52.0 Hematocrit NORM ([facility]) mean corpuscular hemoglobin 29.2 pg 27.0-33.0 Mean Cor puscular Hemoglobin NORM ([facility]) mean corpuscular HGB conc 32.7 g/dL 32.0-36.5 Mean Corpu scular HGB Conc NORM ([facility]) neutrophils % 60.5 % 36.0-66.0 Neutrophils % NORM ( [facility]) red cell distribution width 11.9 % 11.5-14.5 Red Cell Distribution Width NORM ([facility]) platelet count, automated 269 10 150-450 Platelet C ount, Automated NORM ([facility]) mono % 8.8 % 0.0-5.0 Above high normal [place] % NORM ([facility]) eos % 2.4 % 0.0-3.0 Eos % NORM ([facility]) lymph % 27.0 % 24.0-44.0 Lymph % NORM ([facility]) nucleated red blood cell % 0.0 % 0-0 Nucleated Red Blood Cell % [place] ([facility]) immature granulocyte % 0.3 % 0-3.0 Immature Gran ulocyte % NORM ([facility]) neutrophils # 3.5 10 1.5-8.5 Neutrophils # NORM ( [facility]) baso % 1.0 % 0.0-1.0 Baso % NORM ([facility]) lymph # 1.6 10 1.5-5.0 Lymph # NORM ([facility]) eos # 0.1 10 0.0-0.5 Eos # NORM ([facility]) mono # 0.5 10 0.0-0.8 [place] # NORM ([facility]) baso # 0.1 10 0.0-0.2 Baso # NORM ([facility]) ID Date Data Source [id number] 09/06/2020 08:48:00 AM EST NORM ([facility]) Name Value Range Interpretation Code Description Data Jania rce(s) Supporting Document(s) total 25(oh) vitamin D 15.0 NG/mL 30.0-100.0 Below low normal T otal 25(Oh) Vitamin D NORM ([facility]) ID Date Data Source [id number] 09/06/2020 08:48:00 AM EST NORM ([facility]) Name Value Range Interpretation Code Description Data Jania rce(s) Supporting Document(s) free T4 0.78 NG/dL 0.76-1.46 Free T4 NORM ([facility]) thyroid stimulating hormone 9.020 uIU/mL 0.358-3.740 Above high no rmal Thyroid Stimulating Hormone NORM ([facility]) ID Date Data Source [id number] 09/06/2020 08:48:00 AM EST NORM ([facility]) Name Value Range Interpretation Code Description Data Jania rce(s) Supporting Document(s) cholesterol level 264 mg/dL <200 Above high normal Cholesterol Level NORM ([facility]) triglycerides level 145 mg/dL <150 Triglycerides Le matthew NORM ([facility]) Cholesterol in LDL [Mass/volume] in Serum or Plasma 191 mg/dL <100 Above high normal LDL Cholesterol NORM ([facility]) non-HDL-C 220 mg/dL Non-hdl-c NORM ([facility]) HDL cholesterol 44 mg/dL >40 HDL Cholesterol ATHE NA ([facility]) cholesterol risk ratio <5 Above high normal Choles terol Risk Ratio [place] ([facility]) ID Date Data Source [id number] 09/06/2020 08:48:00 AM EST NORM ([facility]) Name Value Range Interpretation Code Description Data Jania rce(s) Supporting Document(s) glucose, fasting 82 mg/dL 70-100 Glucose, Fasting AT [facility] ([facility]) blood urea nitrogen 11 mg/dL 7-18 Blood Urea Nitro gen NORM ([facility]) glomerular filtration rate > 60.0 >60 Glomerula r Filtration Rate NORM ([facility]) sodium level 138 mEq/L 136-145 Sodium Level NORM ([facility]) creatinine for GFR 1.07 mg/dL 0.70-1.30 Creatinine for GF R NORM ([facility]) carbon dioxide level 30 mEq/L 21-32 Carbon Dioxide Level [place] ([facility]) chloride level 101 mEq/L 98-107 Chloride Level NORM ([facility]) potassium serum 4.5 mEq/L 3.5-5.1 Potassium Serum ATHE NA ([facility]) AST/SGOT 20 U/L 7-37 AST/SGOT NORM ([facility]) anion gap 7 mEq/L 8-16 Below low normal Anion Gap NORM ( [facility]) ALT/SGPT 38 U/L 12-78 ALT/SGPT NORM ([facility]) calcium level 9.2 mg/dL 8.5-10.1 Calcium Level NORM ( [facility]) alkaline phosphatase 79 U/L 45-117 Alkaline Phosph atase NORM ([facility]) total protein 8.0 gm/dL 6.4-8.2 Total Protein NORM ( [facility]) albumin 4.7 gm/dL 3.2-5.2 Albumin NORM ([facility]) bilirubin,total 0.7 mg/dL 0.2-1.0 Bilirubin,total ATHE NA ([facility]) albumin/globulin ratio Albumin/globu veda Ratio NORM ([facility]) ID Date Data Source [id number] 09/06/2020 08:48:00 AM EST NORM ([facility]) Name Value Range Interpretation Code Description Data Jania rce(s) Supporting Document(s) white blood count 5.8 10 4.0-10.0 White Blood Count NORM ([facility]) red blood count 5.59 10 4.30-6.10 Red Blood Count ATHE NA ([facility]) hematocrit 49.8 % 42.0-52.0 Hematocrit NORM ([facility]) hemoglobin 16.3 g/dL 13.5-17.5 Hemoglobin NORM ([facility]) mean corpuscular volume 89.1 fL 80.0-96.0 Mean Corpusc ular Volume NORM ([facility]) mean corpuscular hemoglobin 29.2 pg 27.0-33.0 Mean Cor puscular Hemoglobin NORM ([facility]) mean corpuscular HGB conc 32.7 g/dL 32.0-36.5 Mean Corpu scular HGB Conc NORM ([facility]) platelet count, automated 269 10 150-450 Platelet C ount, Automated NORM ([facility]) red cell distribution width 11.9 % 11.5-14.5 Red Cell Distribution Width NORM ([facility]) mono % 8.8 % 0.0-5.0 Above high normal [place] % NORM ([facility]) neutrophils % 60.5 % 36.0-66.0 Neutrophils % NORM ( [facility]) eos % 2.4 % 0.0-3.0 Eos % [place] ([facility]) lymph % 27.0 % 24.0-44.0 Lymph % [place] ([facility]) baso % 1.0 % 0.0-1.0 Baso % [place] ([facility]) immature granulocyte % 0.3 % 0-3.0 Immature Gran ulocyte % NORM ([facility]) neutrophils # 3.5 10 1.5-8.5 Neutrophils # NORM ( [facility]) lymph # 1.6 10 1.5-5.0 Lymph # [place] ([facility]) nucleated red blood cell % 0.0 % 0-0 Nucleated Red Blood Cell % [place] ([facility]) mono # 0.5 10 0.0-0.8 [place] # NORM ([facility]) baso # 0.1 10 0.0-0.2 Baso # NORM ([facility]) eos # 0.1 10 0.0-0.5 Eos # NORM ([facility]) ID Date Data Source [id number] 09/06/2020 08:48:00 AM EST NORM ([facility]) Name Value Range Interpretation Code Description Data Jania rce(s) Supporting Document(s) total 25(oh) vitamin D 15.0 NG/mL 30.0-100.0 Below low normal T otal 25(Oh) Vitamin D [place] ([facility]) ID Date Data Source [id number] 09/06/2020 08:48:00 AM EST NORM ([facility]) Name Value Range Interpretation Code Description Data Jania rce(s) Supporting Document(s) thyroid stimulating hormone 9.020 uIU/mL 0.358-3.740 Above high no rmal Thyroid Stimulating Hormone NORM ([facility]) free T4 0.78 NG/dL 0.76-1.46 Free T4 NORM ([facility]) ID Date Data Source [id number] 09/06/2020 08:48:00 AM EST [place] ([facility]) Name Value Range Interpretation Code Description Data Jania rce(s) Supporting Document(s) triglycerides level 145 mg/dL <150 Triglycerides Le matthew NORM ([facility]) cholesterol level 264 mg/dL <200 Above high normal Cholesterol Level NORM ([facility]) cholesterol risk ratio <5 Above high normal Choles terol Risk Ratio NORM ([facility]) non-HDL-C 220 mg/dL Non-hdl-c NORM ([facility]) Cholesterol in LDL [Mass/volume] in Serum or Plasma 191 mg/dL <100 Above high normal LDL Cholesterol NORM ([facility]) HDL cholesterol 44 mg/dL >40 HDL Cholesterol ATHE NA ([facility]) ID Date Data Source [id number] 09/06/2020 08:48:00 AM EST [place] ([facility]) Name Value Range Interpretation Code Description Data Jania rce(s) Supporting Document(s) glucose, fasting 82 mg/dL 70-100 Glucose, Fasting AT [facility] ([facility]) creatinine for GFR 1.07 mg/dL 0.70-1.30 Creatinine for GF R NORM ([facility]) blood urea nitrogen 11 mg/dL 7-18 Blood Urea Nitro gen NORM ([facility]) glomerular filtration rate > 60.0 >60 Glomerula r Filtration Rate NORM ([facility]) potassium serum 4.5 mEq/L 3.5-5.1 Potassium Serum ATHE NA ([facility]) sodium level 138 mEq/L 136-145 Sodium Level NORM ([facility]) anion gap 7 mEq/L 8-16 Below low normal Anion Gap NORM ( [facility]) chloride level 101 mEq/L 98-107 Chloride Level NORM ([facility]) carbon dioxide level 30 mEq/L 21-32 Carbon Dioxide Level NORM ([facility]) AST/SGOT 20 U/L 7-37 AST/SGOT NORM ([facility]) ALT/SGPT 38 U/L 12-78 ALT/SGPT NORM ([facility]) calcium level 9.2 mg/dL 8.5-10.1 Calcium Level NORM ( [facility]) albumin 4.7 gm/dL 3.2-5.2 Albumin NORM ([facility]) alkaline phosphatase 79 U/L 45-117 Alkaline Phosph atase NORM ([facility]) total protein 8.0 gm/dL 6.4-8.2 Total Protein NORM ( [facility]) bilirubin,total 0.7 mg/dL 0.2-1.0 Bilirubin,total ATHE NA ([facility]) albumin/globulin ratio Albumin/globu veda Ratio NORM ([facility]) ID Date Data Source [id number] 09/06/2020 08:48:00 AM EST NORM ([facility]) Name Value Range Interpretation Code Description Data Jania rce(s) Supporting Document(s) white blood count 5.8 10 4.0-10.0 White Blood Count NORM ([facility]) red blood count 5.59 10 4.30-6.10 Red Blood Count ATHE ([facility]) mean corpuscular volume 89.1 fL 80.0-96.0 Mean Corpusc ular Volume NORM ([facility]) hematocrit 49.8 % 42.0-52.0 Hematocrit NORM ([facility]) hemoglobin 16.3 g/dL 13.5-17.5 Hemoglobin NORM ([facility]) mean corpuscular hemoglobin 29.2 pg 27.0-33.0 Mean Cor puscular Hemoglobin NORM ([facility]) mean corpuscular HGB conc 32.7 g/dL 32.0-36.5 Mean Corpu scular HGB Conc NORM ([facility]) red cell distribution width 11.9 % 11.5-14.5 Red Cell Distribution Width NORM ([facility]) lymph % 27.0 % 24.0-44.0 Lymph % [place] ([facility]) platelet count, automated 269 10 150-450 Platelet C ount, Automated NORM ([facility]) mono % 8.8 % 0.0-5.0 Above high normal [place] % [place] ([facility]) neutrophils % 60.5 % 36.0-66.0 Neutrophils % [place] ( [facility]) eos % 2.4 % 0.0-3.0 Eos % NORM ([facility]) baso % 1.0 % 0.0-1.0 Baso % [place] ([facility]) nucleated red blood cell % 0.0 % 0-0 Nucleated Red Blood Cell % [place] ([facility]) neutrophils # 3.5 10 1.5-8.5 Neutrophils # [place] ( [facility]) immature granulocyte % 0.3 % 0-3.0 Immature Gran ulocyte % NORM ([facility]) lymph # 1.6 10 1.5-5.0 Lymph # NORM ([facility]) mono # 0.5 10 0.0-0.8 [place] # NORM ([facility]) baso # 0.1 10 0.0-0.2 Baso # NORM ([facility]) eos # 0.1 10 0.0-0.5 Eos # [place] ([facility]) ID Date Data Source [id number] 09/06/2020 08:48:00 AM EST [place] ([facility]) Name Value Range Interpretation Code Description Data Jania rce(s) Supporting Document(s) total 25(oh) vitamin D 15.0 NG/mL 30.0-100.0 Below low normal T otal 25(Oh) Vitamin D NORM ([facility]) ID Date Data Source [id number] 09/06/2020 08:48:00 AM EST NORM ([facility]) Name Value Range Interpretation Code Description Data Jania rce(s) Supporting Document(s) thyroid stimulating hormone 9.020 uIU/mL 0.358-3.740 Above high no rmal Thyroid Stimulating Hormone NORM ([facility]) free T4 0.78 NG/dL 0.76-1.46 Free T4 NORM ([facility]) ID Date Data Source [id number] 09/06/2020 08:48:00 AM EST NORM ([facility]) Name Value Range Interpretation Code Description Data Jania rce(s) Supporting Document(s) triglycerides level 145 mg/dL <150 Triglycerides Le matthew NORM ([facility]) cholesterol level 264 mg/dL <200 Above high normal Cholesterol Level NORM ([facility]) non-HDL-C 220 mg/dL Non-hdl-c NORM ([facility]) Cholesterol in LDL [Mass/volume] in Serum or Plasma 191 mg/dL <100 Above high normal LDL Cholesterol NORM ([facility]) cholesterol risk ratio <5 Above high normal Choles terol Risk Ratio NORM ([facility]) HDL cholesterol 44 mg/dL >40 HDL Cholesterol ATHE NA ([facility]) ID Date Data Source [id number] 09/06/2020 08:48:00 AM EST NORM ([facility]) Name Value Range Interpretation Code Description Data Jania rce(s) Supporting Document(s) glucose, fasting 82 mg/dL 70-100 Glucose, Fasting AT [facility] ([facility]) blood urea nitrogen 11 mg/dL 7-18 Blood Urea Nitro gen NORM ([facility]) creatinine for GFR 1.07 mg/dL 0.70-1.30 Creatinine for GF R NORM ([facility]) sodium level 138 mEq/L 136-145 Sodium Level NORM ([facility]) chloride level 101 mEq/L 98-107 Chloride Level NORM ([facility]) glomerular filtration rate > 60.0 >60 Glomerula r Filtration Rate NORM ([facility]) potassium serum 4.5 mEq/L 3.5-5.1 Potassium Serum ATHE ([facility]) AST/SGOT 20 U/L 7-37 AST/SGOT NORM ([facility]) anion gap 7 mEq/L 8-16 Below low normal Anion Gap NORM ( [facility]) calcium level 9.2 mg/dL 8.5-10.1 Calcium Level NORM ( [facility]) carbon dioxide level 30 mEq/L 21-32 Carbon Dioxide Level NORM ([facility]) alkaline phosphatase 79 U/L 45-117 Alkaline Phosph atase NORM ([facility]) bilirubin,total 0.7 mg/dL 0.2-1.0 Bilirubin,total ATHE ([facility]) total protein 8.0 gm/dL 6.4-8.2 Total Protein NORM ( [facility]) ALT/SGPT 38 U/L 12-78 ALT/SGPT NORM ([facility]) albumin/globulin ratio Albumin/globu veda Ratio NORM ([facility]) albumin 4.7 gm/dL 3.2-5.2 Albumin NORM ([facility]) ID Date Data Source [id number] 09/06/2020 08:48:00 AM EST NORM ([facility]) Name Value Range Interpretation Code Description Data Jania rce(s) Supporting Document(s) white blood count 5.8 10 4.0-10.0 White Blood Count NORM ([facility]) red blood count 5.59 10 4.30-6.10 Red Blood Count ATHE ([facility]) mean corpuscular volume 89.1 fL 80.0-96.0 Mean Corpusc ular Volume NORM ([facility]) hematocrit 49.8 % 42.0-52.0 Hematocrit NORM ([facility]) hemoglobin 16.3 g/dL 13.5-17.5 Hemoglobin NORM ([facility]) red cell distribution width 11.9 % 11.5-14.5 Red Cell Distribution Width NORM ([facility]) mean corpuscular HGB conc 32.7 g/dL 32.0-36.5 Mean Corpu scular HGB Conc NORM ([facility]) mean corpuscular hemoglobin 29.2 pg 27.0-33.0 Mean Cor puscular Hemoglobin NORM ([facility]) neutrophils % 60.5 % 36.0-66.0 Neutrophils % NORM ( [facility]) mono % 8.8 % 0.0-5.0 Above high normal [place] % NORM ([facility]) platelet count, automated 269 10 150-450 Platelet C ount, Automated NORM ([facility]) lymph % 27.0 % 24.0-44.0 Lymph % NORM ([facility]) immature granulocyte % 0.3 % 0-3.0 Immature Gran ulocyte % NORM ([facility]) baso % 1.0 % 0.0-1.0 Baso % NORM ([facility]) eos % 2.4 % 0.0-3.0 Eos % NORM ([facility]) neutrophils # 3.5 10 1.5-8.5 Neutrophils # NORM ( [facility]) mono # 0.5 10 0.0-0.8 [place] # NORM ([facility]) nucleated red blood cell % 0.0 % 0-0 Nucleated Red Blood Cell % NORM ([facility]) lymph # 1.6 10 1.5-5.0 Lymph # NORM ([facility]) baso # 0.1 10 0.0-0.2 Baso # NORM ([facility]) eos # 0.1 10 0.0-0.5 Eos # NORM ([facility]) ID Date Data Source [id number] 09/06/2020 08:48:00 AM EST NORM ([facility]) Name Value Range Interpretation Code Description Data Jania rce(s) Supporting Document(s) total 25(oh) vitamin D 15.0 NG/mL 30.0-100.0 Below low normal T otal 25(Oh) Vitamin D NORM ([facility]) ID Date Data Source [id number] 09/06/2020 08:48:00 AM EST NORM ([facility]) Name Value Range Interpretation Code Description Data Jania rce(s) Supporting Document(s) thyroid stimulating hormone 9.020 uIU/mL 0.358-3.740 Above high no rmal Thyroid Stimulating Hormone NORM ([facility]) free T4 0.78 NG/dL 0.76-1.46 Free T4 NORM ([facility]) ID Date Data Source [id number] 09/06/2020 08:48:00 AM EST NORM ([facility]) Name Value Range Interpretation Code Description Data Jania rce(s) Supporting Document(s) cholesterol level 264 mg/dL <200 Above high normal Cholesterol Level NORM ([facility]) triglycerides level 145 mg/dL <150 Triglycerides Le matthew NORM ([facility]) Cholesterol in LDL [Mass/volume] in Serum or Plasma 191 mg/dL <100 Above high normal LDL Cholesterol NORM ([facility]) HDL cholesterol 44 mg/dL >40 HDL Cholesterol ATHE NA ([facility]) non-HDL-C 220 mg/dL Non-hdl-c NORM ([facility]) cholesterol risk ratio <5 Above high normal Choles terol Risk Ratio NORM ([facility]) ID Date Data Source [id number] 09/06/2020 08:48:00 AM EST NORM ([facility]) Name Value Range Interpretation Code Description Data Jania rce(s) Supporting Document(s) blood urea nitrogen 11 mg/dL 7-18 Blood Urea Nitro gen NORM ([facility]) glucose, fasting 82 mg/dL 70-100 Glucose, Fasting AT JASWINDER ([facility]) creatinine for GFR 1.07 mg/dL 0.70-1.30 Creatinine for GF R NORM ([facility]) glomerular filtration rate > 60.0 >60 Glomerula r Filtration Rate NORM ([facility]) potassium serum 4.5 mEq/L 3.5-5.1 Potassium Serum ATHE NA ([facility]) sodium level 138 mEq/L 136-145 Sodium Level NORM ([facility]) chloride level 101 mEq/L 98-107 Chloride Level NORM ([facility]) carbon dioxide level 30 mEq/L 21-32 Carbon Dioxide Level NORM ([facility]) calcium level 9.2 mg/dL 8.5-10.1 Calcium Level NORM ( [facility]) anion gap 7 mEq/L 8-16 Below low normal Anion Gap NORM ( [facility]) AST/SGOT 20 U/L 7-37 AST/SGOT NORM ([facility]) total protein 8.0 gm/dL 6.4-8.2 Total Protein NORM ( [facility]) ALT/SGPT 38 U/L 12-78 ALT/SGPT NORM ([facility]) bilirubin,total 0.7 mg/dL 0.2-1.0 Bilirubin,total ATHE ([facility]) alkaline phosphatase 79 U/L 45-117 Alkaline Phosph atase NORM ([facility]) albumin 4.7 gm/dL 3.2-5.2 Albumin NORM ([facility]) albumin/globulin ratio Albumin/globu veda Ratio NORM ([facility]) ID Date Data Source [id number] 09/06/2020 08:48:00 AM EST NORM ([facility]) Name Value Range Interpretation Code Description Data Jania rce(s) Supporting Document(s) white blood count 5.8 10 4.0-10.0 White Blood Count NORM ([facility]) red blood count 5.59 10 4.30-6.10 Red Blood Count ATHE ([facility]) mean corpuscular volume 89.1 fL 80.0-96.0 Mean Corpusc ular Volume NORM ([facility]) mean corpuscular hemoglobin 29.2 pg 27.0-33.0 Mean Cor puscular Hemoglobin NORM ([facility]) hematocrit 49.8 % 42.0-52.0 Hematocrit NORM ([facility]) hemoglobin 16.3 g/dL 13.5-17.5 Hemoglobin NORM ([facility]) platelet count, automated 269 10 150-450 Platelet C ount, Automated NORM ([facility]) red cell distribution width 11.9 % 11.5-14.5 Red Cell Distribution Width NORM ([facility]) mean corpuscular HGB conc 32.7 g/dL 32.0-36.5 Mean Corpu scular HGB Conc NORM ([facility]) lymph % 27.0 % 24.0-44.0 Lymph % NORM ([facility]) neutrophils % 60.5 % 36.0-66.0 Neutrophils % NORM ( [facility]) mono % 8.8 % 0.0-5.0 Above high normal [place] % NORM ([facility]) eos % 2.4 % 0.0-3.0 Eos % NORM ([facility]) baso % 1.0 % 0.0-1.0 Baso % NORM ([facility]) nucleated red blood cell % 0.0 % 0-0 Nucleated Red Blood Cell % NORM ([facility]) neutrophils # 3.5 10 1.5-8.5 Neutrophils # NORM ( [facility]) immature granulocyte % 0.3 % 0-3.0 Immature Gran ulocyte % NORM ([facility]) eos # 0.1 10 0.0-0.5 Eos # NORM ([facility]) lymph # 1.6 10 1.5-5.0 Lymph # NORM ([facility]) mono # 0.5 10 0.0-0.8 [place] # NORM ([facility]) baso # 0.1 10 0.0-0.2 Baso # NORM ([facility]) ID Date Data Source [id number] 09/06/2020 08:48:00 AM EST NORM ([facility]) Name Value Range Interpretation Code Description Data Jania rce(s) Supporting Document(s) total 25(oh) vitamin D 15.0 NG/mL 30.0-100.0 Below low normal T otal 25(Oh) Vitamin D NORM ([facility]) ID Date Data Source [id number] 09/06/2020 08:48:00 AM EST NORM ([facility]) Name Value Range Interpretation Code Description Data Jania rce(s) Supporting Document(s) free T4 0.78 NG/dL 0.76-1.46 Free T4 NORM ([facility]) thyroid stimulating hormone 9.020 uIU/mL 0.358-3.740 Above high no rmal Thyroid Stimulating Hormone NORM ([facility]) ID Date Data Source [id number] 09/06/2020 08:48:00 AM EST NORM ([facility]) Name Value Range Interpretation Code Description Data Jania rce(s) Supporting Document(s) cholesterol level 264 mg/dL <200 Above high normal Cholesterol Level NORM ([facility]) triglycerides level 145 mg/dL <150 Triglycerides Le matthew NORM ([facility]) non-HDL-C 220 mg/dL Non-hdl-c NORM ([facility]) Cholesterol in LDL [Mass/volume] in Serum or Plasma 191 mg/dL <100 Above high normal LDL Cholesterol NORM ([facility]) HDL cholesterol 44 mg/dL >40 HDL Cholesterol ATHE NA ([facility]) cholesterol risk ratio <5 Above high normal Choles terol Risk Ratio NORM ([facility]) ID Date Data Source [id number] 09/06/2020 08:48:00 AM EST NORM [facility]) Name Value Range Interpretation Code Description Data Jania rce(s) Supporting Document(s) blood urea nitrogen 11 mg/dL 7-18 Blood Urea Nitro gen NORM ([facility]) glucose, fasting 82 mg/dL 70-100 Glucose, Fasting AT JASWINDER ([facility]) creatinine for GFR 1.07 mg/dL 0.70-1.30 Creatinine for GF R NORM ([facility]) sodium level 138 mEq/L 136-145 Sodium Level NORM ([facility]) potassium serum 4.5 mEq/L 3.5-5.1 Potassium Serum ATHE ([facility]) glomerular filtration rate > 60.0 >60 Glomerula r Filtration Rate NORM ([facility]) anion gap 7 mEq/L 8-16 Below low normal Anion Gap NORM ( [facility]) calcium level 9.2 mg/dL 8.5-10.1 Calcium Level NORM ( [facility]) chloride level 101 mEq/L 98-107 Chloride Level NORM ([facility]) carbon dioxide level 30 mEq/L 21-32 Carbon Dioxide Level NORM ([facility]) AST/SGOT 20 U/L 7-37 AST/SGOT NORM ([facility]) ALT/SGPT 38 U/L 12-78 ALT/SGPT NORM ([facility]) bilirubin,total 0.7 mg/dL 0.2-1.0 Bilirubin,total ATHE ([facility]) alkaline phosphatase 79 U/L 45-117 Alkaline Phosph atase NORM ([facility]) albumin/globulin ratio Albumin/globu veda Ratio NORM ([facility]) albumin 4.7 gm/dL 3.2-5.2 Albumin NORM ([facility]) total protein 8.0 gm/dL 6.4-8.2 Total Protein NORM ( [facility]) ID Date Data Source [id number] 09/06/2020 08:48:00 AM EST NORM ([facility]) Name Value Range Interpretation Code Description Data Jania rce(s) Supporting Document(s) white blood count 5.8 10 4.0-10.0 White Blood Count NORM ([facility]) hemoglobin 16.3 g/dL 13.5-17.5 Hemoglobin NORM ([facility]) red blood count 5.59 10 4.30-6.10 Red Blood Count ATHE NA ([facility]) mean corpuscular volume 89.1 fL 80.0-96.0 Mean Corpusc ular Volume NORM ([facility]) hematocrit 49.8 % 42.0-52.0 Hematocrit NORM ([facility]) red cell distribution width 11.9 % 11.5-14.5 Red Cell Distribution Width NORM ([facility]) mean corpuscular hemoglobin 29.2 pg 27.0-33.0 Mean Cor puscular Hemoglobin NORM ([facility]) mean corpuscular HGB conc 32.7 g/dL 32.0-36.5 Mean Corpu scular HGB Conc NORM ([facility]) platelet count, automated 269 10 150-450 Platelet C ount, Automated NORM ([facility]) neutrophils % 60.5 % 36.0-66.0 Neutrophils % NORM ( [facility]) mono % 8.8 % 0.0-5.0 Above high normal [place] % NORM ([facility]) lymph % 27.0 % 24.0-44.0 Lymph % NORM ([facility]) eos % 2.4 % 0.0-3.0 Eos % NORM ([facility]) immature granulocyte % 0.3 % 0-3.0 Immature Gran ulocyte % NORM ([facility]) baso % 1.0 % 0.0-1.0 Baso % NORM ([facility]) mono # 0.5 10 0.0-0.8 [place] # NORM ([facility]) neutrophils # 3.5 10 1.5-8.5 Neutrophils # NORM ( [facility]) lymph # 1.6 10 1.5-5.0 Lymph # NORM ([facility]) nucleated red blood cell % 0.0 % 0-0 Nucleated Red Blood Cell % NORM ([facility]) eos # 0.1 10 0.0-0.5 Eos # NORM ([facility]) baso # 0.1 10 0.0-0.2 Baso # NORM ([facility]) ID Date Data Source [id number] 09/06/2020 08:48:00 AM EST NORM ([facility]) Name Value Range Interpretation Code Description Data Jania rce(s) Supporting Document(s) total 25(oh) vitamin D 15.0 NG/mL 30.0-100.0 Below low normal T otal 25(Oh) Vitamin D NORM ([facility]) ID Date Data Source [id number] 09/06/2020 08:48:00 AM EST NORM ([facility]) Name Value Range Interpretation Code Description Data Jania rce(s) Supporting Document(s) thyroid stimulating hormone 9.020 uIU/mL 0.358-3.740 Above high no rmal Thyroid Stimulating Hormone NORM ([facility]) free T4 0.78 NG/dL 0.76-1.46 Free T4 NORM ([facility]) ID Date Data Source [id number] 09/06/2020 08:48:00 AM EST NORM ([facility]) Name Value Range Interpretation Code Description Data Jania rce(s) Supporting Document(s) triglycerides level 145 mg/dL <150 Triglycerides Le matthew NORM ([facility]) non-HDL-C 220 mg/dL Non-hdl-c NORM ([facility]) cholesterol level 264 mg/dL <200 Above high normal Cholesterol Level NORM ([facility]) HDL cholesterol 44 mg/dL >40 HDL Cholesterol ATHE NA ([facility]) Cholesterol in LDL [Mass/volume] in Serum or Plasma 191 mg/dL <100 Above high normal LDL Cholesterol NORM ([facility]) cholesterol risk ratio <5 Above high normal Choles terol Risk Ratio NORM ([facility]) ID Date Data Source [id number] 09/06/2020 08:48:00 AM EST NORM ([facility]) Name Value Range Interpretation Code Description Data Jania rce(s) Supporting Document(s) glucose, fasting 82 mg/dL 70-100 Glucose, Fasting AT JASWINDER ([facility]) creatinine for GFR 1.07 mg/dL 0.70-1.30 Creatinine for GF R NORM ([facility]) blood urea nitrogen 11 mg/dL 7-18 Blood Urea Nitro gen NORM ([facility]) potassium serum 4.5 mEq/L 3.5-5.1 Potassium Serum ATHE NA ([facility]) sodium level 138 mEq/L 136-145 Sodium Level NORM ([facility]) glomerular filtration rate > 60.0 >60 Glomerula r Filtration Rate NORM ([facility]) anion gap 7 mEq/L 8-16 Below low normal Anion Gap NORM ( [facility]) carbon dioxide level 30 mEq/L 21-32 Carbon Dioxide Level NORM ([facility]) chloride level 101 mEq/L 98-107 Chloride Level NORM ([facility]) AST/SGOT 20 U/L 7-37 AST/SGOT NORM ([facility]) ALT/SGPT 38 U/L 12-78 ALT/SGPT NORM ([facility]) calcium level 9.2 mg/dL 8.5-10.1 Calcium Level NORM ( [facility]) total protein 8.0 gm/dL 6.4-8.2 Total Protein NORM ( [facility]) bilirubin,total 0.7 mg/dL 0.2-1.0 Bilirubin,total ATHE NA ([facility]) alkaline phosphatase 79 U/L 45-117 Alkaline Phosph atase NORM ([facility]) albumin 4.7 gm/dL 3.2-5.2 Albumin NORM ([facility]) albumin/globulin ratio Albumin/globu veda Ratio NORM ([facility]) ID Date Data Source [id number] 09/06/2020 08:48:00 AM EST NORM ([facility]) Name Value Range Interpretation Code Description Data Jania rce(s) Supporting Document(s) white blood count 5.8 10 4.0-10.0 White Blood Count NORM ([facility]) red blood count 5.59 10 4.30-6.10 Red Blood Count ATHE NA ([facility]) hemoglobin 16.3 g/dL 13.5-17.5 Hemoglobin NORM ([facility]) hematocrit 49.8 % 42.0-52.0 Hematocrit NORM ([facility]) mean corpuscular hemoglobin 29.2 pg 27.0-33.0 Mean Cor puscular Hemoglobin NORM ([facility]) mean corpuscular volume 89.1 fL 80.0-96.0 Mean Corpusc ular Volume NORM ([facility]) red cell distribution width 11.9 % 11.5-14.5 Red Cell Distribution Width NORM ([facility]) platelet count, automated 269 10 150-450 Platelet C ount, Automated NORM ([facility]) mean corpuscular HGB conc 32.7 g/dL 32.0-36.5 Mean Corpu scular HGB Conc NORM ([facility]) lymph % 27.0 % 24.0-44.0 Lymph % MALDEN ([facility]) neutrophils % 60.5 % 36.0-66.0 Neutrophils % NORM ( [facility]) eos % 2.4 % 0.0-3.0 Eos % NORM ([facility]) mono % 8.8 % 0.0-5.0 Above high normal [place] % NORM ([facility]) baso % 1.0 % 0.0-1.0 Baso % MALDEN ([facility]) immature granulocyte % 0.3 % 0-3.0 Immature Gran ulocyte % NORM ([facility]) nucleated red blood cell % 0.0 % 0-0 Nucleated Red Blood Cell % NORM ([facility]) mono # 0.5 10 0.0-0.8 [place] # NORM ([facility]) lymph # 1.6 10 1.5-5.0 Lymph # NORM ([facility]) neutrophils # 3.5 10 1.5-8.5 Neutrophils # NORM ( [facility]) baso # 0.1 10 0.0-0.2 Baso # NORM ([facility]) eos # 0.1 10 0.0-0.5 Eos # NORM ([facility]) ID Date Data Source [id number] 09/06/2020 08:48:00 AM EST NORM ([facility]) Name Value Range Interpretation Code Description Data Jania rce(s) Supporting Document(s) total 25(oh) vitamin D 15.0 NG/mL 30.0-100.0 Below low normal T otal 25(Oh) Vitamin D NORM ([facility]) ID Date Data Source [id number] 09/06/2020 08:48:00 AM EST NORM ([facility]) Name Value Range Interpretation Code Description Data Jania rce(s) Supporting Document(s) free T4 0.78 NG/dL 0.76-1.46 Free T4 NORM ([facility]) thyroid stimulating hormone 9.020 uIU/mL 0.358-3.740 Above high no rmal Thyroid Stimulating Hormone NORM ([facility]) ID Date Data Source [id number] 09/06/2020 08:48:00 AM EST NORM ([facility]) Name Value Range Interpretation Code Description Data Jania rce(s) Supporting Document(s) triglycerides level 145 mg/dL <150 Triglycerides Le matthew NORM ([facility]) cholesterol level 264 mg/dL <200 Above high normal Cholesterol Level NORM ([facility]) HDL cholesterol 44 mg/dL >40 HDL Cholesterol ATHE NA ([facility]) Cholesterol in LDL [Mass/volume] in Serum or Plasma 191 mg/dL <100 Above high normal LDL Cholesterol NORM ([facility]) non-HDL-C 220 mg/dL Non-hdl-c NORM ([facility]) cholesterol risk ratio <5 Above high normal Choles terol Risk Ratio NORM ([facility]) ID Date Data Source [id number] 09/06/2020 08:48:00 AM EST NORM ([facility]) Name Value Range Interpretation Code Description Data Jania rce(s) Supporting Document(s) glucose, fasting 82 mg/dL 70-100 Glucose, Fasting AT JASWINDER ([facility]) glomerular filtration rate > 60.0 >60 Glomerula r Filtration Rate NORM ([facility]) sodium level 138 mEq/L 136-145 Sodium Level NORM ([facility]) creatinine for GFR 1.07 mg/dL 0.70-1.30 Creatinine for GF R NORM ([facility]) blood urea nitrogen 11 mg/dL 7-18 Blood Urea Nitro gen NORM ([facility]) potassium serum 4.5 mEq/L 3.5-5.1 Potassium Serum ATHE NA ([facility]) chloride level 101 mEq/L 98-107 Chloride Level NORM ([facility]) carbon dioxide level 30 mEq/L 21-32 Carbon Dioxide Level NORM ([facility]) anion gap 7 mEq/L 8-16 Below low normal Anion Gap NORM ( [facility]) AST/SGOT 20 U/L 7-37 AST/SGOT NORM ([facility]) ALT/SGPT 38 U/L 12-78 ALT/SGPT NORM ([facility]) calcium level 9.2 mg/dL 8.5-10.1 Calcium Level NORM ( [facility]) alkaline phosphatase 79 U/L 45-117 Alkaline Phosph atase NORM ([facility]) total protein 8.0 gm/dL 6.4-8.2 Total Protein NORM ( [facility]) bilirubin,total 0.7 mg/dL 0.2-1.0 Bilirubin,total ATHE NA ([facility]) albumin 4.7 gm/dL 3.2-5.2 Albumin NORM ([facility]) albumin/globulin ratio Albumin/globu veda Ratio NORM ([facility]) ID Date Data Source [id number] 09/06/2020 08:48:00 AM EST NORM ([facility]) Name Value Range Interpretation Code Description Data Jania rce(s) Supporting Document(s) white blood count 5.8 10 4.0-10.0 White Blood Count NORM ([facility]) hemoglobin 16.3 g/dL 13.5-17.5 Hemoglobin NORM ([facility]) red blood count 5.59 10 4.30-6.10 Red Blood Count ATHE NA ([facility]) mean corpuscular volume 89.1 fL 80.0-96.0 Mean Corpusc ular Volume NORM ([facility]) hematocrit 49.8 % 42.0-52.0 Hematocrit NORM ([facility]) mean corpuscular HGB conc 32.7 g/dL 32.0-36.5 Mean Corpu scular HGB Conc NORM ([facility]) mean corpuscular hemoglobin 29.2 pg 27.0-33.0 Mean Cor puscular Hemoglobin NORM ([facility]) neutrophils % 60.5 % 36.0-66.0 Neutrophils % NORM ( [facility]) lymph % 27.0 % 24.0-44.0 Lymph % NOMR ([facility]) red cell distribution width 11.9 % 11.5-14.5 Red Cell Distribution Width NORM ([facility]) platelet count, automated 269 10 150-450 Platelet C ount, Automated NORM ([facility]) eos % 2.4 % 0.0-3.0 Eos % NORM ([facility]) baso % 1.0 % 0.0-1.0 Baso % NORM ([facility]) mono % 8.8 % 0.0-5.0 Above high normal [place] % NORM ([facility]) nucleated red blood cell % 0.0 % 0-0 Nucleated Red Blood Cell % NORM ([facility]) neutrophils # 3.5 10 1.5-8.5 Neutrophils # NORM ( [facility]) immature granulocyte % 0.3 % 0-3.0 Immature Gran ulocyte % NORM ([facility]) lymph # 1.6 10 1.5-5.0 Lymph # NORM ([facility]) mono # 0.5 10 0.0-0.8 [place] # NORM ([facility]) baso # 0.1 10 0.0-0.2 Baso # NORM ([facility]) eos # 0.1 10 0.0-0.5 Eos # NORM ([facility]) ID Date Data Source [id number] 09/06/2020 08:48:00 AM EST NORM ([facility]) Name Value Range Interpretation Code Description Data Jania rce(s) Supporting Document(s) total 25(oh) vitamin D 15.0 NG/mL 30.0-100.0 Below low normal T otal 25(Oh) Vitamin D MALDEN ([facility]) ID Date Data Source [id number] 09/06/2020 08:48:00 AM EST NORM ([facility]) Name Value Range Interpretation Code Description Data Jania rce(s) Supporting Document(s) free T4 0.78 NG/dL 0.76-1.46 Free T4 MAL[place] ([facility]) thyroid stimulating hormone 9.020 uIU/mL 0.358-3.740 Above high no rmal Thyroid Stimulating Hormone NORM ([facility]) ID Date Data Source [id number] 09/06/2020 08:48:00 AM EST NORM ([facility]) Name Value Range Interpretation Code Description Data Jania rce(s) Supporting Document(s) cholesterol level 264 mg/dL <200 Above high normal Cholesterol Level NORM ([facility]) HDL cholesterol 44 mg/dL >40 HDL Cholesterol ATHE NA ([facility]) triglycerides level 145 mg/dL <150 Triglycerides Le matthew NORM ([facility]) cholesterol risk ratio <5 Above high normal Choles terol Risk Ratio NORM ([facility]) Cholesterol in LDL [Mass/volume] in Serum or Plasma 191 mg/dL <100 Above high normal LDL Cholesterol NORM ([facility]) non-HDL-C 220 mg/dL Non-hdl-c NORM ([facility]) ID Date Data Source [id number] 09/06/2020 08:48:00 AM EST NORM ([facility]) Name Value Range Interpretation Code Description Data Jania rce(s) Supporting Document(s) glucose, fasting 82 mg/dL 70-100 Glucose, Fasting AT [facility] ([facility]) blood urea nitrogen 11 mg/dL 7-18 Blood Urea Nitro gen NORM ([facility]) glomerular filtration rate > 60.0 >60 Glomerula r Filtration Rate NORM ([facility]) sodium level 138 mEq/L 136-145 Sodium Level NORM ([facility]) creatinine for GFR 1.07 mg/dL 0.70-1.30 Creatinine for GF R NORM ([facility]) chloride level 101 mEq/L 98-107 Chloride Level NORM ([facility]) carbon dioxide level 30 mEq/L 21-32 Carbon Dioxide Level NORM ([facility]) anion gap 7 mEq/L 8-16 Below low normal Anion Gap NORM ( [facility]) potassium serum 4.5 mEq/L 3.5-5.1 Potassium Serum ATHE NA ([facility]) alkaline phosphatase 79 U/L 45-117 Alkaline Phosph atase NORM ([facility]) ALT/SGPT 38 U/L 12-78 ALT/SGPT NORM ([facility]) AST/SGOT 20 U/L 7-37 AST/SGOT NORM ([facility]) calcium level 9.2 mg/dL 8.5-10.1 Calcium Level NORM ( [facility]) total protein 8.0 gm/dL 6.4-8.2 Total Protein NORM ( [facility]) albumin 4.7 gm/dL 3.2-5.2 Albumin NORM ([facility]) bilirubin,total 0.7 mg/dL 0.2-1.0 Bilirubin,total ATHE NA ([facility]) albumin/globulin ratio Albumin/globu veda Ratio NORM ([facility]) ID Date Data Source [id number] 09/06/2020 08:48:00 AM EST NORM ([facility]) Name Value Range Interpretation Code Description Data Jania rce(s) Supporting Document(s) white blood count 5.8 10 4.0-10.0 White Blood Count NORM ([facility]) hemoglobin 16.3 g/dL 13.5-17.5 Hemoglobin NORM ([facility]) red blood count 5.59 10 4.30-6.10 Red Blood Count ATHE NA ([facility]) mean corpuscular HGB conc 32.7 g/dL 32.0-36.5 Mean Corpu scular HGB Conc NORM ([facility]) mean corpuscular hemoglobin 29.2 pg 27.0-33.0 Mean Cor puscular Hemoglobin NORM ([facility]) mean corpuscular volume 89.1 fL 80.0-96.0 Mean Corpusc ular Volume NORM ([facility]) hematocrit 49.8 % 42.0-52.0 Hematocrit NORM ([facility]) neutrophils % 60.5 % 36.0-66.0 Neutrophils % NORM ( [facility]) platelet count, automated 269 10 150-450 Platelet C ount, Automated NORM ([facility]) red cell distribution width 11.9 % 11.5-14.5 Red Cell Distribution Width NORM ([facility]) eos % 2.4 % 0.0-3.0 Eos % NORM ([facility]) baso % 1.0 % 0.0-1.0 Baso % NORM ([facility]) mono % 8.8 % 0.0-5.0 Above high normal [place] % NORM ([facility]) lymph % 27.0 % 24.0-44.0 Lymph % NORM ([facility]) neutrophils # 3.5 10 1.5-8.5 Neutrophils # NORM ( [facility]) nucleated red blood cell % 0.0 % 0-0 Nucleated Red Blood Cell % NORM ([facility]) lymph # 1.6 10 1.5-5.0 Lymph # NORM ([facility]) immature granulocyte % 0.3 % 0-3.0 Immature Gran ulocyte % NORM ([facility]) mono # 0.5 10 0.0-0.8 [place] # NORM ([facility]) baso # 0.1 10 0.0-0.2 Baso # NORM ([facility]) eos # 0.1 10 0.0-0.5 Eos # NORM ([facility]) ID Date Data Source [id number] 09/06/2020 08:48:00 AM EST NORM ([facility]) Name Value Range Interpretation Code Description Data Jania rce(s) Supporting Document(s) total 25(oh) vitamin D 15.0 NG/mL 30.0-100.0 Below low normal T otal 25(Oh) Vitamin D MALDEN ([facility]) ID Date Data Source [id number] 09/06/2020 08:48:00 AM EST NORM ([facility]) Name Value Range Interpretation Code Description Data Jania rce(s) Supporting Document(s) thyroid stimulating hormone 9.020 uIU/mL 0.358-3.740 Above high no rmal Thyroid Stimulating Hormone NORM ([facility]) free T4 0.78 NG/dL 0.76-1.46 Free T4 MALDEN ([facility]) ID Date Data Source [id number] 09/06/2020 08:48:00 AM EST NORM ([facility]) Name Value Range Interpretation Code Description Data Jania rce(s) Supporting Document(s) cholesterol level 264 mg/dL <200 Above high normal Cholesterol Level NORM ([facility]) triglycerides level 145 mg/dL <150 Triglycerides Le matthew NORM ([facility]) Cholesterol in LDL [Mass/volume] in Serum or Plasma 191 mg/dL <100 Above high normal LDL Cholesterol NORM ([facility]) non-HDL-C 220 mg/dL Non-hdl-c NORM ([facility]) HDL cholesterol 44 mg/dL >40 HDL Cholesterol ATHE NA ([facility]) cholesterol risk ratio <5 Above high normal Choles terol Risk Ratio NORM ([facility]) ID Date Data Source [id number] 09/06/2020 08:48:00 AM EST NORM ([facility]) Name Value Range Interpretation Code Description Data Jania rce(s) Supporting Document(s) glucose, fasting 82 mg/dL 70-100 Glucose, Fasting AT [facility] ([facility]) glomerular filtration rate > 60.0 >60 Glomerula r Filtration Rate NORM ([facility]) creatinine for GFR 1.07 mg/dL 0.70-1.30 Creatinine for GF R NORM ([facility]) blood urea nitrogen 11 mg/dL 7-18 Blood Urea Nitro gen NORM ([facility]) potassium serum 4.5 mEq/L 3.5-5.1 Potassium Serum ATHE NA ([facility]) sodium level 138 mEq/L 136-145 Sodium Level NORM (No [facility]) chloride level 101 mEq/L 98-107 Chloride Level NORM ([facility]) carbon dioxide level 30 mEq/L 21-32 Carbon Dioxide Level NORM ([facility]) calcium level 9.2 mg/dL 8.5-10.1 Calcium Level NORM ( [facility]) AST/SGOT 20 U/L 7-37 AST/SGOT NORM ([facility]) anion gap 7 mEq/L 8-16 Below low normal Anion Gap NORM ( [facility]) alkaline phosphatase 79 U/L 45-117 Alkaline Phosph atase NORM ([facility]) ALT/SGPT 38 U/L 12-78 ALT/SGPT NORM ([facility]) total protein 8.0 gm/dL 6.4-8.2 Total Protein NORM ( [facility]) bilirubin,total 0.7 mg/dL 0.2-1.0 Bilirubin,total ATHE NA ([facility]) albumin 4.7 gm/dL 3.2-5.2 Albumin NORM ([facility]) albumin/globulin ratio Albumin/globu veda Ratio NORM ([facility]) ID Date Data Source [id number] 09/06/2020 08:48:00 AM EST NORM ([facility]) Name Value Range Interpretation Code Description Data Jania rce(s) Supporting Document(s) white blood count 5.8 10 4.0-10.0 White Blood Count NORM ([facility]) hemoglobin 16.3 g/dL 13.5-17.5 Hemoglobin NORM ([facility]) red blood count 5.59 10 4.30-6.10 Red Blood Count ATHE NA ([facility]) hematocrit 49.8 % 42.0-52.0 Hematocrit NORM ([facility]) mean corpuscular volume 89.1 fL 80.0-96.0 Mean Corpusc ular Volume NORM ([facility]) mean corpuscular hemoglobin 29.2 pg 27.0-33.0 Mean Cor puscular Hemoglobin NORM ([facility]) mean corpuscular HGB conc 32.7 g/dL 32.0-36.5 Mean Corpu scular HGB Conc NORM ([facility]) neutrophils % 60.5 % 36.0-66.0 Neutrophils % NORM ( [facility]) red cell distribution width 11.9 % 11.5-14.5 Red Cell Distribution Width NORM ([facility]) lymph % 27.0 % 24.0-44.0 Lymph % NORM ([facility]) platelet count, automated 269 10 150-450 Platelet C ount, Automated NORM ([facility]) immature granulocyte % 0.3 % 0-3.0 Immature Gran ulocyte % NORM ([facility]) baso % 1.0 % 0.0-1.0 Baso % NORM ([facility]) eos % 2.4 % 0.0-3.0 Eos % NORM ([facility]) mono % 8.8 % 0.0-5.0 Above high normal [place] % NORM ([facility]) nucleated red blood cell % 0.0 % 0-0 Nucleated Red Blood Cell % NORM ([facility]) neutrophils # 3.5 10 1.5-8.5 Neutrophils # NORM ( [facility]) mono # 0.5 10 0.0-0.8 [place] # NORM ([facility]) baso # 0.1 10 0.0-0.2 Baso # NORM ([facility]) lymph # 1.6 10 1.5-5.0 Lymph # NORM ([facility]) eos # 0.1 10 0.0-0.5 Eos # NORM ([facility]) ID Date Data Source [id number] 09/06/2020 08:48:00 AM EST NORM ([facility]) Name Value Range Interpretation Code Description Data Jania rce(s) Supporting Document(s) total 25(oh) vitamin D 15.0 NG/mL 30.0-100.0 Below low normal T otal 25(Oh) Vitamin D MALDEN ([facility]) ID Date Data Source [id number] 09/06/2020 08:48:00 AM EST NORM ([facility]) Name Value Range Interpretation Code Description Data Jania rce(s) Supporting Document(s) thyroid stimulating hormone 9.020 uIU/mL 0.358-3.740 Above high no rmal Thyroid Stimulating Hormone NORM ([facility]) free T4 0.78 NG/dL 0.76-1.46 Free T4 NORM ([facility]) ID Date Data Source [id number] 09/06/2020 08:48:00 AM EST NORM ([facility]) Name Value Range Interpretation Code Description Data Jania rce(s) Supporting Document(s) triglycerides level 145 mg/dL <150 Triglycerides Le matthew NORM ([facility]) Cholesterol in LDL [Mass/volume] in Serum or Plasma 191 mg/dL <100 Above high normal LDL Cholesterol NORM ([facility]) HDL cholesterol 44 mg/dL >40 HDL Cholesterol ATHE NA ([facility]) non-HDL-C 220 mg/dL Non-hdl-c NORM ([facility]) cholesterol level 264 mg/dL <200 Above high normal Cholesterol Level NORM ([facility]) cholesterol risk ratio <5 Above high normal Choles terol Risk Ratio NORM ([facility]) ID Date Data Source [id number] 09/06/2020 08:48:00 AM EST NORM ([facility]) Name Value Range Interpretation Code Description Data Jania rce(s) Supporting Document(s) blood urea nitrogen 11 mg/dL 7-18 Blood Urea Nitro gen NORM ([facility]) glucose, fasting 82 mg/dL 70-100 Glucose, Fasting AT [facility] ([facility]) creatinine for GFR 1.07 mg/dL 0.70-1.30 Creatinine for GF R NORM ([facility]) carbon dioxide level 30 mEq/L 21-32 Carbon Dioxide Level NORM ([facility]) potassium serum 4.5 mEq/L 3.5-5.1 Potassium Serum ATHE NA ([facility]) glomerular filtration rate > 60.0 >60 Glomerula r Filtration Rate NORM ([facility]) sodium level 138 mEq/L 136-145 Sodium Level NORM (No [facility]) chloride level 101 mEq/L 98-107 Chloride Level NORM ([facility]) anion gap 7 mEq/L 8-16 Below low normal Anion Gap NORM ( [facility]) AST/SGOT 20 U/L 7-37 AST/SGOT NORM ([facility]) calcium level 9.2 mg/dL 8.5-10.1 Calcium Level NORM ( [facility]) bilirubin,total 0.7 mg/dL 0.2-1.0 Bilirubin,total ATHE NA ([facility]) ALT/SGPT 38 U/L 12-78 ALT/SGPT NORM ([facility]) alkaline phosphatase 79 U/L 45-117 Alkaline Phosph atase NORM ([facility]) total protein 8.0 gm/dL 6.4-8.2 Total Protein NORM ( [facility]) albumin 4.7 gm/dL 3.2-5.2 Albumin NORM ([facility]) albumin/globulin ratio Albumin/globu veda Ratio NORM ([facility]) ID Date Data Source [id number] 09/06/2020 08:48:00 AM EST NORM ([facility]) Name Value Range Interpretation Code Description Data Jania rce(s) Supporting Document(s) white blood count 5.8 10 4.0-10.0 White Blood Count NORM ([facility]) red blood count 5.59 10 4.30-6.10 Red Blood Count ATHE NA ([facility]) hemoglobin 16.3 g/dL 13.5-17.5 Hemoglobin NORM ([facility]) mean corpuscular volume 89.1 fL 80.0-96.0 Mean Corpusc ular Volume NORM ([facility]) hematocrit 49.8 % 42.0-52.0 Hematocrit NORM ([facility]) mean corpuscular hemoglobin 29.2 pg 27.0-33.0 Mean Cor puscular Hemoglobin NORM ([facility]) mean corpuscular HGB conc 32.7 g/dL 32.0-36.5 Mean Corpu scular HGB Conc NORM ([facility]) red cell distribution width 11.9 % 11.5-14.5 Red Cell Distribution Width NORM ([facility]) platelet count, automated 269 10 150-450 Platelet C ount, Automated NORM ([facility]) mono % 8.8 % 0.0-5.0 Above high normal [place] % NORM ([facility]) neutrophils % 60.5 % 36.0-66.0 Neutrophils % NORM ( [facility]) lymph % 27.0 % 24.0-44.0 Lymph % NORM ([facility]) eos % 2.4 % 0.0-3.0 Eos % NORM ([facility]) nucleated red blood cell % 0.0 % 0-0 Nucleated Red Blood Cell % NORM ([facility]) baso % 1.0 % 0.0-1.0 Baso % NORM ([facility]) immature granulocyte % 0.3 % 0-3.0 Immature Gran ulocyte % NORM ([facility]) mono # 0.5 10 0.0-0.8 [place] # NORM ([facility]) neutrophils # 3.5 10 1.5-8.5 Neutrophils # NORM ( [facility]) lymph # 1.6 10 1.5-5.0 Lymph # NORM ([facility]) eos # 0.1 10 0.0-0.5 Eos # NORM ([facility]) baso # 0.1 10 0.0-0.2 Baso # NORM ([facility]) ID Date Data Source [id number] 09/06/2020 08:48:00 AM EST MALDEN ([facility]) Name Value Range Interpretation Code Description Data Jania rce(s) Supporting Document(s) total 25(oh) vitamin D 15.0 NG/mL 30.0-100.0 Below low normal T otal 25(Oh) Vitamin D MALDEN ([facility]) ID Date Data Source [id number] 09/06/2020 08:48:00 AM EST MALDEN ([facility]) Name Value Range Interpretation Code Description Data Jania rce(s) Supporting Document(s) free T4 0.78 NG/dL 0.76-1.46 Free T4 NORM ([facility]) thyroid stimulating hormone 9.020 uIU/mL 0.358-3.740 Above high no rmal Thyroid Stimulating Hormone MALDEN ([facility]) ID Date Data Source [id number] 09/06/2020 08:48:00 AM EST NORM ([facility]) Name Value Range Interpretation Code Description Data Jania rce(s) Supporting Document(s) triglycerides level 145 mg/dL <150 Triglycerides Le matthew NORM ([facility]) non-HDL-C 220 mg/dL Non-hdl-c NORM ([facility]) HDL cholesterol 44 mg/dL >40 HDL Cholesterol ATHE NA ([facility]) cholesterol level 264 mg/dL <200 Above high normal Cholesterol Level NORM ([facility]) Cholesterol in LDL [Mass/volume] in Serum or Plasma 191 mg/dL <100 Above high normal LDL Cholesterol NORM ([facility]) cholesterol risk ratio <5 Above high normal Choles terol Risk Ratio NORM ([facility]) ID Date Data Source [id number] 09/06/2020 08:48:00 AM EST NORM ([facility]) Name Value Range Interpretation Code Description Data Jania rce(s) Supporting Document(s) blood urea nitrogen 11 mg/dL 7-18 Blood Urea Nitro gen NORM ([facility]) glucose, fasting 82 mg/dL 70-100 Glucose, Fasting AT [facility] ([facility]) creatinine for GFR 1.07 mg/dL 0.70-1.30 Creatinine for GF R NORM ([facility]) sodium level 138 mEq/L 136-145 Sodium Level NORM ([facility]) potassium serum 4.5 mEq/L 3.5-5.1 Potassium Serum ATHE NA ([facility]) glomerular filtration rate > 60.0 >60 Glomerula r Filtration Rate NORM ([facility]) anion gap 7 mEq/L 8-16 Below low normal Anion Gap NORM ( [facility]) calcium level 9.2 mg/dL 8.5-10.1 Calcium Level NORM ( [facility]) AST/SGOT 20 U/L 7-37 AST/SGOT NORM ([facility]) carbon dioxide level 30 mEq/L 21-32 Carbon Dioxide Level NORM ([facility]) chloride level 101 mEq/L 98-107 Chloride Level NORM ([facility]) bilirubin,total 0.7 mg/dL 0.2-1.0 Bilirubin,total ATHE NA ([facility]) ALT/SGPT 38 U/L 12-78 ALT/SGPT NORM ([facility]) alkaline phosphatase 79 U/L 45-117 Alkaline Phosph atase NORM ([facility]) total protein 8.0 gm/dL 6.4-8.2 Total Protein NORM ( [facility]) albumin 4.7 gm/dL 3.2-5.2 Albumin NORM ([facility]) albumin/globulin ratio Albumin/globu veda Ratio NORM ([facility]) ID Date Data Source [id number] 09/06/2020 08:48:00 AM EST NORM ([facility]) Name Value Range Interpretation Code Description Data Jania rce(s) Supporting Document(s) white blood count 5.8 10 4.0-10.0 White Blood Count NORM ([facility]) hemoglobin 16.3 g/dL 13.5-17.5 Hemoglobin NORM ([facility]) hematocrit 49.8 % 42.0-52.0 Hematocrit NORM ([facility]) red blood count 5.59 10 4.30-6.10 Red Blood Count ATHE NA ([facility]) mean corpuscular HGB conc 32.7 g/dL 32.0-36.5 Mean Corpu scular HGB Conc NORM ([facility]) mean corpuscular hemoglobin 29.2 pg 27.0-33.0 Mean Cor puscular Hemoglobin NORM ([facility]) mean corpuscular volume 89.1 fL 80.0-96.0 Mean Corpusc ular Volume NORM ([facility]) red cell distribution width 11.9 % 11.5-14.5 Red Cell Distribution Width NORM ([facility]) neutrophils % 60.5 % 36.0-66.0 Neutrophils % NORM ( [facility]) lymph % 27.0 % 24.0-44.0 Lymph % MAL[place] ([facility]) platelet count, automated 269 10 150-450 Platelet C ount, Automated NORM ([facility]) mono % 8.8 % 0.0-5.0 Above high normal [place] % MALDEN ([facility]) immature granulocyte % 0.3 % 0-3.0 Immature Gran ulocyte % NORM ([facility]) baso % 1.0 % 0.0-1.0 Baso % NORM ([facility]) eos % 2.4 % 0.0-3.0 Eos % MALDEN ([facility]) mono # 0.5 10 0.0-0.8 [place] # MALDEN ([facility]) neutrophils # 3.5 10 1.5-8.5 Neutrophils # MALDEN ( [facility]) nucleated red blood cell % 0.0 % 0-0 Nucleated Red Blood Cell % MALDEN ([facility]) lymph # 1.6 10 1.5-5.0 Lymph # MALDEN ([facility]) baso # 0.1 10 0.0-0.2 Baso # NORM ([facility]) eos # 0.1 10 0.0-0.5 Eos # MALDEN ([facility]) ID Date Data Source [id number] 08/21/2020 12:00:00 AM [facility] Name Value Range Interpretation Code Description Data Jania rce(s) Supporting Document(s) SARS coronavirus 2 Ag [facility] This lab was ordered by [facility] and reported by [facility]. Procedure Social History No Information Vital Signs ID Date Data Source [id number] Name Value Range Interpretation Code Description Data Source(s) Body height 72 [in_i] 72 [in_i] MAL[place] ([facility]) Body mass index (BMI) [Ratio] 22.4 kg/m2 22.4 k g/m2 [facility] ([facility]) Body height 72 [in_i] 72 [in_i] [facility] ([facility]) 6'0" Diastolic blood pressure 84 mm[Hg] 84 mm[Hg] MEDENT ([facility], [facility]) Systolic blood pressure 126 mm[Hg] 126 mm[Hg] M EDENT ([facility], [facility]) Heart rate 111 /min 111 /min MEDENT ([facility], [facility]) Respiratory rate 16 /min 16 /min MEDENT ( [facility], [facility]) Oxygen saturation in Arterial blood by Pulse oximetry 96 % 96 % MEDENT ([facility], [facility]) Body temperature 99.0 [degF] 99.0 [degF] MEDENT ([facility], [facility]) Body weight 165.00 [lb_av] 165.00 [lb_av] MEDEN T ([facility], [facility]) Diastolic blood pressure 84 mm[Hg] 84 mm[Hg] NORM ([facility]) Diastolic blood pressure 95 mm[Hg] 95 mm[Hg] NORM ([facility]) Body height 72 [in_i] 72 [in_i] NORM ([facility]) Systolic blood pressure 126 mm[Hg] 126 mm[Hg] A [facility] ([facility]) Body mass index (BMI) [Ratio] 24.3 kg/m2 24.3 k g/m2 NORM ([facility]) Systolic blood pressure 153 mm[Hg] 153 mm[Hg] A [facility] ([facility]) Body weight 2864 [oz_av] 2864 [oz_av] NORM ([facility]) Systolic blood pressure 153 mm[Hg] 153 mm[Hg] A [facility] ([facility]) Body weight 2864 [oz_av] 2864 [oz_av] NORM ([facility]) Body mass index (BMI) [Ratio] 24.3 kg/m2 24.3 k g/m2 NORM ([facility]) Systolic blood pressure 126 mm[Hg] 126 mm[Hg] A [facility] ([facility]) Diastolic blood pressure 84 mm[Hg] 84 mm[Hg] NORM ([facility]) Diastolic blood pressure 95 mm[Hg] 95 mm[Hg] NORM ([facility]) Body height 72 [in_i] 72 [in_i] NORM ([facility]) Systolic blood pressure 153 mm[Hg] 153 mm[Hg] A THENA ([facility]) Diastolic blood pressure 84 mm[Hg] 84 mm[Hg] NORM ([facility]) Diastolic blood pressure 95 mm[Hg] 95 mm[Hg] NORM ([facility]) Body height 72 [in_i] 72 [in_i] NORM ([facility]) Body mass index (BMI) [Ratio] 24.3 kg/m2 24.3 k g/m2 NORM ([facility]) Systolic blood pressure 126 mm[Hg] 126 mm[Hg] A ABBYA ([facility]) Body weight 2864 [oz_av] 2864 [oz_av] NORM ([facility]) Body mass index (BMI) [Ratio] 25.1 kg/m2 25.1 k g/m2 NORM ([facility]) Diastolic blood pressure 76 mm[Hg] 76 mm[Hg] NORM ([facility]) Body height 72 [in_i] 72 [in_i] NORM ([facility]) Systolic blood pressure 121 mm[Hg] 121 mm[Hg] A THENA ([facility]) Body weight 2966.4 [oz_av] 2966.4 [oz_av] ATHEN A ([facility]) Diastolic blood pressure 76 mm[Hg] 76 mm[Hg] NORM ([facility]) Body height 72 [in_i] 72 [in_i] NORM ([facility]) Body mass index (BMI) [Ratio] 25.1 kg/m2 25.1 k g/m2 NORM ([facility]) Systolic blood pressure 121 mm[Hg] 121 mm[Hg] A THENA ([facility]) Body weight 2966.4 [oz_av] 2966.4 [oz_av] ATHEN A ([facility]) Body weight 2966.4 [oz_av] 2966.4 [oz_av] ATHEN A ([facility]) Diastolic blood pressure 76 mm[Hg] 76 mm[Hg] NORM ([facility]) Body height 72 [in_i] 72 [in_i] NORM ([facility]) Body mass index (BMI) [Ratio] 25.1 kg/m2 25.1 k g/m2 NORM ([facility]) Systolic blood pressure 121 mm[Hg] 121 mm[Hg] A THENA ([facility]) Diastolic blood pressure 76 mm[Hg] 76 mm[Hg] NORM ([facility]) Body height 72 [in_i] 72 [in_i] NORM ([facility]) Body mass index (BMI) [Ratio] 25.1 kg/m2 25.1 k g/m2 NORM ([facility]) Systolic blood pressure 121 mm[Hg] 121 mm[Hg] A THENA ([facility]) Body weight 2966.4 [oz_av] 2966.4 [oz_av] ATHEN A ([facility]) Body weight 175.00 [lb_av] 175.00 [lb_av] MEDEN T ([facility], [facility]) Oxygen saturation in Arterial blood by Pulse oximetry 97 % 97 % MEDENT ([facility], [facility]) Respiratory rate 16 /min 16 /min MEDENT ( [facility], [facility]) Body height 72 [in_i] 72 [in_i] MEDENT ([facility], [facility]) 6'0" Body mass index (BMI) [Ratio] 23.7 kg/m2 23.7 k g/m2 [facility] ([facility] [facility], [facility]) Body temperature 98.1 [degF] 98.1 [degF] MEDENT ([place] [facility], [facility]) Systolic blood pressure 138 mm[Hg] 138 mm[Hg] M EDENT ([place] [facility], [facility]) Diastolic blood pressure 94 mm[Hg] 94 mm[Hg] MEDENT ([place] [facility], [facility]) Heart rate 73 /min 73 /min MEDENT ([facility], [facility]) Diastolic blood pressure 80 mm[Hg] 80 mm[Hg] NORM ([facility]) Body height 72 [in_i] 72 [in_i] NORM ([facility]) Body mass index (BMI) [Ratio] 25 kg/m2 25 kg/ m2 NORM ([facility]) Systolic blood pressure 131 mm[Hg] 131 mm[Hg] [facility] Body weight 2949 [oz_av] 2949 [oz_av] NORM ([facility]) Diastolic blood pressure 80 mm[Hg] 80 mm[Hg] NORM ([facility]) Body height 72 [in_i] 72 [in_i] NORM ([facility]) Body mass index (BMI) [Ratio] 25 kg/m2 25 kg/ m2 NORM ([facility]) Systolic blood pressure 131 mm[Hg] 131 mm[Hg] A [facility] ([facility]) Body weight 2949 [oz_av] 2949 [oz_av] NORM ([facility]) Body weight 2949 [oz_av] 2949 [oz_av] NORM ([facility]) Systolic blood pressure 131 mm[Hg] 131 mm[Hg] A [facility] ([facility]) Body mass index (BMI) [Ratio] 25 kg/m2 25 kg/ m2 NORM ([facility]) Body height 72 [in_i] 72 [in_i] NORM ([facility]) Diastolic blood pressure 80 mm[Hg] 80 mm[Hg] NORM ([facility]) Diastolic blood pressure 80 mm[Hg] 80 mm[Hg] NORM ([facility]) Body height 72 [in_i] 72 [in_i] NORM ([facility]) Body mass index (BMI) [Ratio] 25 kg/m2 25 kg/ m2 NORM ([facility]) Systolic blood pressure 131 mm[Hg] 131 mm[Hg] A [facility] ([facility]) Body weight 2949 [oz_av] 2949 [oz_av] NORM ([facility]) Diastolic blood pressure 80 mm[Hg] 80 mm[Hg] NORM ([facility]) Body height 72 [in_i] 72 [in_i] NORM ([facility]) Body mass index (BMI) [Ratio] 25 kg/m2 25 kg/ m2 NORM ([facility]) Systolic blood pressure 131 mm[Hg] 131 mm[Hg] A THENA ([facility]) Body weight 2949 [oz_av] 2949 [oz_av] NORM ([facility]) Diastolic blood pressure 80 mm[Hg] 80 mm[Hg] NORM ([facility]) Body height 72 [in_i] 72 [in_i] NORM ([facility]) Body mass index (BMI) [Ratio] 25 kg/m2 25 kg/ m2 NORM ([facility]) Systolic blood pressure 131 mm[Hg] 131 mm[Hg] A THENA ([facility]) Body weight 2949 [oz_av] 2949 [oz_av] NORM ([facility]) Systolic blood pressure 140 mm[Hg] 140 mm[Hg] Kizzy TEJEDA ([facility], ) Diastolic blood pressure 70 mm[Hg] 70 mm[Hg] [facility], [facility] Body height 72 [in_i] 72 [in_i] [facility], ) 6'0" Body weight 176.00 [lb_av] 176.00 [lb_av] MEDEN T ([facility], ) Body mass index (BMI) [Ratio] 23.9 kg/m2 23.9 k g/m2 [facility], ) Tama body weight 178 [lb_av] 178 [lb_av] MEDEN T ([facility], ) Body weight 79.834 kg 79.834 kg [facility] ([facility], ) Body surface area Derived from formula 2.02 m2 2.02 m2 [facility] ([facility], ) Diastolic blood pressure 86 mm[Hg] 86 mm[Hg] NORM ([facility]) Body height 72 [in_i] 72 [in_i] NORM ([facility]) Systolic blood pressure 150 mm[Hg] 150 mm[Hg] A THENA ([facility]) Body mass index (BMI) [Ratio] 24.7 kg/m2 24.7 k g/m2 NORM ([facility]) Body weight 2918.4 [oz_av] 2918.4 [oz_av] ATHEN A ([facility]) Body height 72 [in_i] 72 [in_i] NORM ([facility]) Diastolic blood pressure 86 mm[Hg] 86 mm[Hg] NORM ([facility]) Body mass index (BMI) [Ratio] 24.7 kg/m2 24.7 k g/m2 NORM ([facility]) Systolic blood pressure 150 mm[Hg] 150 mm[Hg] [facility] Body weight 2918.4 [oz_av] 2918.4 [oz_av] ATHEN A ([facility]) Diastolic blood pressure 86 mm[Hg] 86 mm[Hg] NORM ([facility]) Body height 72 [in_i] 72 [in_i] NORM ([facility]) Body mass index (BMI) [Ratio] 24.7 kg/m2 24.7 k g/m2 NORM ([facility]) Systolic blood pressure 150 mm[Hg] 150 mm[Hg] [facility]) Body weight 2918.4 [oz_av] 2918.4 [oz_av] ATHEN A ([facility]) Diastolic blood pressure 86 mm[Hg] 86 mm[Hg] NORM ([facility]) Body height 72 [in_i] 72 [in_i] NORM ([facility]) Body mass index (BMI) [Ratio] 24.7 kg/m2 24.7 k g/m2 NORM ([facility]) Systolic blood pressure 150 mm[Hg] 150 mm[Hg] [facility]) Body weight 2918.4 [oz_av] 2918.4 [oz_av] ATHEN A ([facility]) Body height 72 [in_i] 72 [in_i] NORM ([facility]) Body mass index (BMI) [Ratio] 24.7 kg/m2 24.7 k g/m2 NORM ([facility]) Systolic blood pressure 150 mm[Hg] 150 mm[Hg] [facility]) Body weight 2918.4 [oz_av] 2918.4 [oz_av] ATHEN A ([facility]) Diastolic blood pressure 86 mm[Hg] 86 mm[Hg] NORM ([facility]) Diastolic blood pressure 86 mm[Hg] 86 mm[Hg] NORM ([facility]) Body height 72 [in_i] 72 [in_i] NORM ([facility]) Body mass index (BMI) [Ratio] 24.7 kg/m2 24.7 k g/m2 NORM ([facility]) Systolic blood pressure 150 mm[Hg] 150 mm[Hg] [facility]) Body weight 2918.4 [oz_av] 2918.4 [oz_av] ATHEN A ([facility]) Diastolic blood pressure 86 mm[Hg] 86 mm[Hg] NORM ([facility]) Body height 72 [in_i] 72 [in_i] NORM ([facility]) Body mass index (BMI) [Ratio] 24.7 kg/m2 24.7 k g/m2 NORM ([facility]) Systolic blood pressure 150 mm[Hg] 150 mm[Hg] A THENA ([facility]) Body weight 2918.4 [oz_av] 2918.4 [oz_av] ATHEN A ([facility]) Diastolic blood pressure 86 mm[Hg] 86 mm[Hg] NORM ([facility]) Body height 72 [in_i] 72 [in_i] NORM ([facility]) Body mass index (BMI) [Ratio] 24.7 kg/m2 24.7 k g/m2 NORM ([facility]) Systolic blood pressure 150 mm[Hg] 150 mm[Hg] A THENA ([facility]) Body weight 2918.4 [oz_av] 2918.4 [oz_av] ATHEN A ([facility]) Diastolic blood pressure 86 mm[Hg] 86 mm[Hg] NORM ([facility]) Body height 72 [in_i] 72 [in_i] NORM ([facility]) Body mass index (BMI) [Ratio] 24.7 kg/m2 24.7 k g/m2 NORM ([facility]) Systolic blood pressure 150 mm[Hg] 150 mm[Hg] A THENA ([facility]) Body weight 2918.4 [oz_av] 2918.4 [oz_av] ATHEN A ([facility]) Body height 72 [in_i] 72 [in_i] NORM ([facility]) Body height 72 [in_i] 72 [in_i] NORM ([facility]) Body height 72 [in_i] 72 [in_i] NORM ([facility]) Body height 72 [in_i] 72 [in_i] NORM ([facility]) Body height 72 [in_i] 72 [in_i] NORM ([facility]) Body height 72 [in_i] 72 [in_i] NORM ([facility]) Body height 72 [in_i] 72 [in_i] NORM ([facility]) Body height 72 [in_i] 72 [in_i] NORM ([facility]) Body height 72 [in_i] 72 [in_i] NORM ([facility]) Body height 72 [in_i] 72 [in_i] NORM ([facility]) Body height 72 [in_i] 72 [in_i] NORM ([facility]) Body height 72 [in_i] 72 [in_i] NORM ([facility]) Body height 72 [in_i] 72 [in_i] NORM ([facility]) Body height 72 [in_i] 72 [in_i] NORM ([facility]) Body height 72 [in_i] 72 [in_i] NORM ([facility]) Body height 72 [in_i] 72 [in_i] NORM ([facility]) Body height 72 [in_i] 72 [in_i] NORM ([facility]) Body height 72 [in_i] 72 [in_i] NORM ([facility]) Body height 72 [in_i] 72 [in_i] NORM ([facility]) Body height 72 [in_i] 72 [in_i] NORM ([facility]) Body height 72 [in_i] 72 [in_i] NORM ([facility]) Body height 72 [in_i] 72 [in_i] NORM ([facility]) Body height 72 [in_i] 72 [in_i] NORM ([facility]) Systolic blood pressure 142 mm[Hg] 142 mm[Hg] A THENA ([facility]) Body weight 2969.6 [oz_av] 2969.6 [oz_av] ATHEN A ([facility]) Diastolic blood pressure 82 mm[Hg] 82 mm[Hg] NORM ([facility]) Body height 72 [in_i] 72 [in_i] NORM ([facility]) Body mass index (BMI) [Ratio] 25.2 kg/m2 25.2 k g/m2 NORM ([facility]) Body mass index (BMI) [Ratio] 25.2 kg/m2 25.2 k g/m2 NORM ([facility]) Diastolic blood pressure 82 mm[Hg] 82 mm[Hg] NORM ([facility]) Body height 72 [in_i] 72 [in_i] NORM ([facility]) Body weight 2969.6 [oz_av] 2969.6 [oz_av] ATHEN A ([facility]) Systolic blood pressure 142 mm[Hg] 142 mm[Hg] A THENA ([facility]) Diastolic blood pressure 82 mm[Hg] 82 mm[Hg] NORM ([facility]) Body height 72 [in_i] 72 [in_i] NORM ([facility]) Body mass index (BMI) [Ratio] 25.2 kg/m2 25.2 k g/m2 NORM ([facility]) Systolic blood pressure 142 mm[Hg] 142 mm[Hg] A THENA ([facility]) Body weight 2969.6 [oz_av] 2969.6 [oz_av] ATHEN A ([facility]) Diastolic blood pressure 82 mm[Hg] 82 mm[Hg] NORM ([facility]) Body height 72 [in_i] 72 [in_i] NORM ([facility]) Body mass index (BMI) [Ratio] 25.2 kg/m2 25.2 k g/m2 NORM ([facility]) Systolic blood pressure 142 mm[Hg] 142 mm[Hg] [facility]) Body weight 2969.6 [oz_av] 2969.6 [oz_av] ATHEN A ([facility]) Systolic blood pressure 142 mm[Hg] 142 mm[Hg] [facility]) Body weight 2969.6 [oz_av] 2969.6 [oz_av] ATHEN A ([facility]) Diastolic blood pressure 82 mm[Hg] 82 mm[Hg] NORM ([facility]) Body height 72 [in_i] 72 [in_i] NORM ([facility]) Body mass index (BMI) [Ratio] 25.2 kg/m2 25.2 k g/m2 NORM ([facility]) Diastolic blood pressure 82 mm[Hg] 82 mm[Hg] NORM ([facility]) Body height 72 [in_i] 72 [in_i] NORM ([facility]) Body mass index (BMI) [Ratio] 25.2 kg/m2 25.2 k g/m2 NORM ([facility]) Systolic blood pressure 142 mm[Hg] 142 mm[Hg] A [facility] ([facility]) Body weight 2969.6 [oz_av] 2969.6 [oz_av] ATHEN A ([facility]) Diastolic blood pressure 82 mm[Hg] 82 mm[Hg] NORM ([facility]) Body height 72 [in_i] 72 [in_i] NORM ([facility]) Body mass index (BMI) [Ratio] 25.2 kg/m2 25.2 k g/m2 NORM ([facility]) Systolic blood pressure 142 mm[Hg] 142 mm[Hg] A [facility] ([facility]) Body weight 2969.6 [oz_av] 2969.6 [oz_av] ATHEN A ([facility]) Diastolic blood pressure 82 mm[Hg] 82 mm[Hg] NORM ([facility]) Body height 72 [in_i] 72 [in_i] NORM ([facility]) Body mass index (BMI) [Ratio] 25.2 kg/m2 25.2 k g/m2 NORM ([facility]) Systolic blood pressure 142 mm[Hg] 142 mm[Hg] [facility]) Body weight 2969.6 [oz_av] 2969.6 [oz_av] ATHEN A ([facility]) Diastolic blood pressure 82 mm[Hg] 82 mm[Hg] NORM ([facility]) Body height 72 [in_i] 72 [in_i] NORM ([facility]) Body mass index (BMI) [Ratio] 25.2 kg/m2 25.2 k g/m2 NORM ([facility]) Systolic blood pressure 142 mm[Hg] 142 mm[Hg] A [facility] ([facility]) Body weight 2969.6 [oz_av] 2969.6 [oz_av] ATHEN A ([facility]) Diastolic blood pressure 82 mm[Hg] 82 mm[Hg] NORM ([facility]) Body height 72 [in_i] 72 [in_i] NORM ([facility]) Body mass index (BMI) [Ratio] 25.2 kg/m2 25.2 k g/m2 NORM ([facility]) Systolic blood pressure 142 mm[Hg] 142 mm[Hg] [facility]) Body weight 2969.6 [oz_av] 2969.6 [oz_av] ATHEN A ([facility]) Diastolic blood pressure 82 mm[Hg] 82 mm[Hg] NORM ([facility]) Body height 72 [in_i] 72 [in_i] NORM ([facility]) Body mass index (BMI) [Ratio] 25.2 kg/m2 25.2 k g/m2 NORM ([facility]) Systolic blood pressure 142 mm[Hg] 142 mm[Hg] A [facility] ([facility]) Body weight 2969.6 [oz_av] 2969.6 [oz_av] ATHEN A ([facility]) Diastolic blood pressure 82 mm[Hg] 82 mm[Hg] NORM ([facility]) Body height 72 [in_i] 72 [in_i] NORM ([facility]) Body mass index (BMI) [Ratio] 25.2 kg/m2 25.2 k g/m2 NOMR ([facility]) Systolic blood pressure 142 mm[Hg] 142 mm[Hg] A THENA ([facility]) Body weight 2969.6 [oz_av] 2969.6 [oz_av] ATHEN A ([facility]) Diastolic blood pressure 82 mm[Hg] 82 mm[Hg] NORM ([facility]) Body height 72 [in_i] 72 [in_i] NORM ([facility]) Body mass index (BMI) [Ratio] 25.2 kg/m2 25.2 k g/m2 NORM ([facility]) Systolic blood pressure 142 mm[Hg] 142 mm[Hg] A THENA ([facility]) Body weight 2969.6 [oz_av] 2969.6 [oz_av] ATHEN A ([facility]) Diastolic blood pressure 82 mm[Hg] 82 mm[Hg] NORM ([facility]) Body height 72 [in_i] 72 [in_i] NORM ([facility]) Body mass index (BMI) [Ratio] 25.2 kg/m2 25.2 k g/m2 NORM ([facility]) Systolic blood pressure 142 mm[Hg] 142 mm[Hg] A THENA ([facility]) Body weight 2969.6 [oz_av] 2969.6 [oz_av] ATHEN A ([facility]) Body height 72 [in_i] 72 [in_i] NORM ([facility]) Body height 72 [in_i] 72 [in_i] NORM ([facility]) Body height 72 [in_i] 72 [in_i] NORM ([facility]) Body height 72 [in_i] 72 [in_i] NROM ([facility]) Body height 72 [in_i] 72 [in_i] NORM ([facility]) Body height 72 [in_i] 72 [in_i] NORM ([facility]) Body height 72 [in_i] 72 [in_i] NORM ([facility]) Body height 72 [in_i] 72 [in_i] NORM ([facility]) Body height 72 [in_i] 72 [in_i] NORM ([facility]) Body height 72 [in_i] 72 [in_i] NORM ([facility]) Body height 72 [in_i] 72 [in_i] NORM ([facility]) Body height 72 [in_i] 72 [in_i] NORM ([facility]) Body height 72 [in_i] 72 [in_i] NORM ([facility]) Body height 72 [in_i] 72 [in_i] NORM ([facility]) Body height 72 [in_i] 72 [in_i] NORM ([facility]) Systolic blood pressure 129 mm[Hg] 129 mm[Hg] M EDENT ([facility], [facility]) Diastolic blood pressure 93 mm[Hg] 93 mm[Hg] MEDENT ([facility], [facility]) Heart rate 88 /min 88 /min MEDENT ([facility], [facility]) [facility] 16 /min 16 [facility] Oxygen saturation in Arterial blood by Pulse oximetry 99 % 99 % [facility] ([facility], [facility]) Body temperature 99.1 [degF] 99.1 [degF] MEDENT ([facility], [facility]) Body weight 165.00 [lb_av] 165.00 [lb_av] MEDEN T ([facility], [facility]) Patient Treatment Plan of Care Planned Activity Planned Date Details Description Data Source (s) cetirizine hydrochloride 10 MG Oral Tablet 08/29/2020 12:00:[address] [facility] ([facility]) cetirizine hydrochloride 10 MG Oral Tablet 08/29/2020 12:00:[address] [facility] ([facility]) POLYETHYLENE GLYCOL 3350 142 MG/ML Oral Solution [Miralax] NORM ([facility]) Ibuprofen 800 MG Oral Tablet NORM ([facility]) Levothyroxine Sodium 0.05 MG Oral Tablet [Euthyrox] NORM ([facility]) Levothyroxine Sodium 0.025 MG Oral Tablet [Euthyrox] NORM ([facility]) Clindamycin 300 MG Oral Capsule NORM ([facility]) cefdinir 300 MG Oral Capsule NORM ([facility]) Azithromycin 250 MG Oral Tablet NORM ([facility]) POLYETHYLENE GLYCOL 3350 142 MG/ML Oral Solution [Miralax] NORM ([facility]) Ibuprofen 800 MG Oral Tablet NORM ([facility]) Levothyroxine Sodium 0.05 MG Oral Tablet [Euthyrox] NORM ([facility]) Levothyroxine Sodium 0.025 MG Oral Tablet [Euthyrox] NORM ([facility]) Clindamycin 300 MG Oral Capsule NORM ([facility]) Azithromycin 250 MG Oral Tablet NORM ([facility]) POLYETHYLENE GLYCOL 3350 142 MG/ML Oral Solution [Miralax] NORM ([facility]) Ibuprofen 800 MG Oral Tablet NORM ([facility]) Levothyroxine Sodium 0.05 MG Oral Tablet [Euthyrox] NORM ([facility]) Levothyroxine Sodium 0.025 MG Oral Tablet [Euthyrox] NORM ([facility]) Clindamycin 300 MG Oral Capsule NROM ([facility]) Azithromycin 250 MG Oral Tablet NORM ([facility]) POLYETHYLENE GLYCOL 3350 142 MG/ML Oral Solution [Miralax] NORM ([facility]) Ibuprofen 800 MG Oral Tablet NORM ([facility]) Levothyroxine Sodium 0.05 MG Oral Tablet [Euthyrox] NORM ([facility]) Levothyroxine Sodium 0.025 MG Oral Tablet [Euthyrox] NORM ([facility]) d3 50 mcg (1999 ut) caps AT [facility] ([facility]) Clindamycin 300 MG Oral Capsule NORM ([facility]) Azithromycin 250 MG Oral Tablet NORM ([facility]) Ibuprofen 800 MG Oral Tablet NORM ([facility]) Azithromycin 250 MG Oral Tablet NORM ([facility]) Ibuprofen 800 MG Oral Tablet NORM ([facility]) d3 50 mcg (2000 ut) caps AT [facility] ([facility]) Clindamycin 300 MG Oral Capsule NORM ([facility]) Azithromycin 250 MG Oral Tablet NORM ([facility]) Ibuprofen 800 MG Oral Tablet NORM ([facility]) Clindamycin 300 MG Oral Capsule NORM ([facility]) Azithromycin 250 MG Oral Tablet NORM ([facility]) Ibuprofen 800 MG Oral Tablet NORM ([facility]) Clindamycin 300 MG Oral Capsule NORM ([facility]) Azithromycin 250 MG Oral Tablet NORM ([facility]) Ibuprofen 800 MG Oral Tablet NORM ([facility]) Clindamycin 300 MG Oral Capsule NORM ([facility]) Azithromycin 250 MG Oral Tablet NORM ([facility]) Ibuprofen 800 MG Oral Tablet NORM ([facility]) Clindamycin 300 MG Oral Capsule NORM ([facility]) Azithromycin 250 MG Oral Tablet NORM ([facility]) Ibuprofen 800 MG Oral Tablet NORM ([facility]) Clindamycin 300 MG Oral Capsule NORM ([facility]) Azithromycin 250 MG Oral Tablet NORM ([facility]) Ibuprofen 800 MG Oral Tablet NORM ([facility]) fluticasone 113 mcg-salmeterol 14 mcg/actuation breath activated po wdr NORM ([facility]) Clindamycin 300 MG Oral Capsule NORM ([facility]) Azithromycin 250 MG Oral Tablet NORM ([facility]) Ibuprofen 800 MG Oral Tablet NORM ([facility]) Levothyroxine Sodium 0.025 MG Oral Tablet [Euthyrox] NORM ([facility]) Clindamycin 300 MG Oral Capsule NORM ([facility]) Ibuprofen 800 MG Oral Tablet NORM ([facility]) Levothyroxine Sodium 0.025 MG Oral Tablet [Euthyrox] NORM ([facility]) Clindamycin 300 MG Oral Capsule NORM ([facility]) albuterol sulfate HFA 90 mcg/actuation aerosol inhaler NORM ([facility]) Ibuprofen 800 MG Oral Tablet NORM ([facility]) Levothyroxine Sodium 0.025 MG Oral Tablet [Euthyrox] NORM ([facility]) Clindamycin 300 MG Oral Capsule NORM ([facility]) albuterol sulfate HFA 90 mcg/actuation aerosol inhaler NORM ([facility])
[2021-07-27] MEDS: COMBIVENT RESPIMAT 100-20MCG INHALER 4GM INH SCH ×3 (02:17→02:55)
[2021-07-27 04:07] VITALS: O2SAT 96
--- NOTE | 2021-07-27 04:54 | REPVR ---
PROCEDURE INFORMATION: Exam: XR Chest Exam date and time: 07/27/2021 2:11 AM Age: 36 years old Clinical indication: Other: Covid, cough/sob TECHNIQUE: Imaging protocol: XR of the chest. Views: 1 view. COMPARISON: CR Chest, 2 view PA, Lat 09/13/2020 5:41 PM FINDINGS: Lungs: Unremarkable. No consolidation. Pleural spaces: Unremarkable. No pleural effusion. No pneumothorax. Heart/Mediastinum: Unremarkable. No cardiomegaly. Bones/joints: Unremarkable. IMPRESSION: No acute findings. Electronically signed by: Ginny Farmer On 07/27/2021 04:53:58 AM
[2021-07-27] MEDS ORDERED: PROV108A INH (05:11)
[2021-07-27] MEDS ORDERED: PRED20TA PO (05:11)
[2021-07-27] MEDS ORDERED: ALBUTEROL 90 MCG/ACT 8GM HFA INHALER INH ONE (05:20)
== END 2021-07-27 05:54 | disposition home or self-care (01) ==
LOC: M ED 20:29
DX: U07.1 COVID-19 (principal); R05.9 Cough, unspecified; R50.9 Fever, unspecified; J45.909 Unspecified asthma, uncomplicated; E03.9 Hypothyroidism, unspecified; Z88.0 Allergy status to penicillin; Z88.8 Allergy status to other drugs, medicaments and biological substances; Z79.890 Hormone replacement therapy; Z79.899 Other long term (current) drug therapy

== ENCOUNTER 2021-08-03 19:23 | Emergency (ER) | payer OTHER ==
[~2021-08-03] VITALS: Ht 182.9 cm; Wt 74.3 kg
[~2021-08-03 19:23] MED LIST changes: -MONT10TA10; +MONT10TA97; +PRED20TA PO; +PROV108A INH
[2021-08-03 19:24] VITALS: BP 129/86
[2021-08-04] MEDS ORDERED: AZIT-12 PO (17:29)
[2021-08-04] MEDS ORDERED: ASPE4PAD TOP (17:29)
== END 2021-08-04 08:26 | disposition left against medical advice (07) ==
LOC: M ED 19:23
DX: Z53.21 Procedure and treatment not carried out due to patient leaving prior to being seen by health care provider (principal)

== ENCOUNTER 2021-08-04 12:35 | Emergency (ER) | payer OTHER ==
[~2021-08-04] VITALS: Ht 182.9 cm; Wt 73.7 kg
[~2021-08-04 12:35] MED LIST changes: +MONT10TA10; -MONT10TA97
--- OUTSIDE RECORDS SUMMARY | 2021-08-04 12:45 | CCD ---
Author Author [facility] Organization [facility] Address Unknown Phone Unavailable Care Team Providers Care Geodesy Teacher Name Role Phone Davis, Sarah ROLL OVER PRESS OPERATOR Unavailable Unavailable Davis, Sarah ROLL OVER PRESS OPERATOR Unavailable Unavailable Davis, Sarah ROLL OVER PRESS OPERATOR Unavailable Unavailable Davis, Sarah ROLL OVER PRESS OPERATOR Unavailable Unavailable Davis, Sarah ROLL OVER PRESS OPERATOR Unavailable Unavailable Davis, Sarah ROLL OVER PRESS OPERATOR Unavailable Unavailable Davis, Sarah ROLL OVER PRESS OPERATOR Unavailable Unavailable Davis, Sarah ROLL OVER PRESS OPERATOR Unavailable Unavailable Davis, Sarah ROLL OVER PRESS OPERATOR Unavailable Unavailable Davis, Sarah ROLL OVER PRESS OPERATOR Unavailable Unavailable Davis, Sarah ROLL OVER PRESS OPERATOR Unavailable Unavailable Davis, Sarah ROLL OVER PRESS OPERATOR Unavailable Unavailable Davis, Sarah ROLL OVER PRESS OPERATOR Unavailable Unavailable SHRESTHA, AFSHAN BRIAN RPA-C Unavailable [...] Unavailable SHRESTHA, AFSHAN BRIAN RPA-C Unavailable Unavailable CRISSY, A. FELICIANO BETHANIE Unavailable [phone] CRISSY, A. UNDERWRITING MANAGER BETHANIE Unavailable [phone] CRISSY, A. UNDERWRITING MANAGER BETHANIE Unavailable [phone] CRISSY, A. UNDERWRITING MANAGER BETHANIE Unavailable [phone] CRISSY, A. UNDERWRITING MANAGER BETHANIE Unavailable [phone] CRISSY, A. UNDERWRITING MANAGER BETHANIE Unavailable [phone] CRISSY, A. UNDERWRITING MANAGER BETHANIE Unavailable [phone] CRISSY, A. UNDERWRITING MANAGER BETHANIE Unavailable [phone] CRISSY, A. UNDERWRITING MANAGER BETHANIE Unavailable [phone] CRISSY, A. UNDERWRITING MANAGER BETHANIE Unavailable [phone] CRISSY, A. UNDERWRITING MANAGER BETHANIE Unavailable [phone] CRISSY, A. UNDERWRITING MANAGER BETHANEI Unavailable [phone] CRISSY, A. UNDERWRITING MANAGER BETHANIE Unavailable [phone] CRISSY, A. UNDERWRITING MANAGER BETHANIE Unavailable [phone] CRISSY, A. UNDERWRITING MANAGER BETHANIE Unavailable [phone] CRISSY, A. UNDERWRITING MANAGER BETHANIE Unavailable [phone] Tee CLIFTON MD Unavailable Unavailable Tee CLIFTON [...] Taina Unavailable Unavailable Janet, Taina Unavailable Unavailable NATALYA, O MELODY HARRINGTON Unavailable Unavailable NATALYA, O MELODY HARRINGTON Unavailable Unavailable NATALYA, O MELODY HARRINGTON Unavailable Unavailable NATALYA, O MELODY HARRINGTON Unavailable Unavailable NATALYA, O MELODY HARRINGTON Unavailable Unavailable NATALYA, O MELODY HARRINGTON Unavailable Unavailable NATALYA, O MELODY HARRINGTON Unavailable Unavailable NATALYA, O MELODY HARRINGTON Unavailable Unavailable NATALYA O MELODY HARRINGTON Unavailable Unavailable NATALYAAlba GAUTHIER MD Unavailable Unavailable NATALYA O EMLODY HARRINGTON Unavailable Unavailable NATALYA O MELODY HARRINGTON Unavailable Unavailable NATALYA O MELODY HARRINGTON Unavailable Unavailable NATALYA O MELODY HARRINGTON Unavailable Unavailable NATALYA O MELODY HARRINGTON Unavailable Unavailable NATALYA O [...] Unavailable Unavailable Alba HOANG MD Unavailable Unavailable lAba HOANG MD Unavailable Unavailable Alba HOANG MD Unavailable Unavailable Alba HOANG MD Unavailable Unavailable NATALYA, Alba OLIVER MD Unavailable Unavailable Marley, Ayah Teena PA Unavailable [...] is protected by Article 27-F of the [facility] Public Health law. If you continue you may have access to information: Regarding HIV / AIDS; Provided by facilities licensed or operated by the [facility] Office of Mental Health; or Provided by the [facility] Office for People With Developmental Disabilities. If such information is present, then the following [facility] mandated warning applies: This information has [...] law may result in a fine or fdc sentence or both. A general authorization for the release of medical or other information is NOT sufficient authorization for further disc losure. Family History Family Member Name Family Member Gender Family Member Status Date o f Status Description Data Source(s) Unknown Unknown Problem MEDENT ([facility]) father Unknown Unknown Problem MEDENT ([facility]) Encounters Encounter Providers Location Date Indications Data Source(s ) Outpatient Attender: BETHANIE ROBERTSLLISTER 07/24 11:11:05 AM EST - 08/04/2021 12:19:50 PM EST DocuTap ([facility] ) Brian Shrestha RPA-C: [address], [place] [address], Ph. Attender: BRIAN SHRESTHA RPA-C [facility] 07/22/2021 12:00:00 AM EST NORM ([facility]) Outpatient Attender: Sarah odonnell 07/20/2021 09:25:00 AM EST MEDENT ([facility]) Outpatient Attender: Manjeet MACDONALD 05/24 09:01:45 PM EDT - 06/10/2021 09:22:55 PM EDT DocuTap ([facility] ) Brian Shrestha RPA-C: [address], [place] [address], Ph. Attender: BRIAN KENYONC [facility] 06/03/2021 12:00:00 AM EDT NORM ([facility]) Brian Shrestha RPA-C: [address], [place] [address], Ph. Attender: BRIAN SHRESTHA RPA-C [facility] 06/03/2021 12:00:00 AM EDT NORM ([facility]) Brian Shrestha RPA-C: [address], [place] [address], Ph. Attender: BRIAN SHRESTHA RPA-C [facility] 04/16/2021 12:00:00 AM EDT NORM ([facility]) Brian Shrestha RPA-C: [address], [place] [address], Ph. Attender: BRIAN SHRESTHA RPA-C [facility] 04/16/2021 12:00:00 AM EDT NORM ([facility]) Brian Shrestha, RPA-C: [address], [place] [address], Ph. Attender: BRIAN SHRESTHA RPA-C [facility] 04/16/2021 12:00:00 AM EDT NORM ([facility]) Brian Shrestha, RPA-C: [address], [place] [address], Ph. Attender: BRIAN SHRESTHA RPA-C [facility] 04/02/2021 12:00:00 AM EDT NORM ([facility]) Brian Shrestha, RPA-C: [address], [place] [address], Ph. Attender: BRIAN SHRESTHA RPA-C [facility] 04/02/2021 12:00:00 AM EDT NORM ([facility]) Brian Shrestha, RPA-C: [address], [place] [address], Ph. Attender: BRIAN SHRESTHA RPA-C [facility] 04/02/2021 12:00:00 AM EDT NORM ([facility]) Brian Shrestha, RPA-C: [address], [place] [address], Ph. Attender: BRIAN SHRESTHA RPA-C [facility] 04/02/2021 12:00:00 AM EDT NORM ([facility]) Brian Shrestha RPA-C: [address], [place] [address], Ph. Attender: BRIAN SHRESTHA RPA-C [facility] 03/11/2021 12:00:00 AM EDT NORM ([facility]) Brian Shrestha RPA-C: [address], [place] [address], Ph. Attender: BRIAN SHRESTHA RPA-C [facility] 03/11/2021 12:00:00 AM EDT NORM ([facility]) Brian Shrestha RPA-C: [address], [place] [address], Ph. Attender: BRIAN SHRESTHA RPA-C [facility] 03/11/2021 12:00:00 AM EDT NORM ([facility]) Brian Shrestha RPA-C: [address], [place] [address], Ph. Attender: BRIAN SHRESTHA RPA-C [facility] 03/11/2021 12:00:00 AM EDT NORM ([facility]) Brian Shrestha RPA-C: [address], [place] [address], Ph. Attender: BRIAN SHRESTHA RPA-C [facility] 03/11/2021 12:00:00 AM EDT NORM ([facility]) Outpatient Attender: Sarah odonnell 03/05/2021 03:35:00 PM EDT MEDENT ([facility]) Outpatient Attender: ROSEMARIE CLIFTON MD 03/01 03:14:16 PM EDT - 03/01/2021 04:34:40 PM EDT DocuTap ([facility] ) Brian Shrestha RPA-C: [address], [place] [address], Ph. Attender: BRIAN SHRESTHA RPA-C [facility] 01/15/2021 12:00:00 AM EDT NORM ([facility]) Brian Shrestha RPA-C: [address], [place] [address], Ph. Attender: BRIAN SHRESTHA RPA-C [facility] 01/15/2021 12:00:00 AM EDT NORM ([facility]) Brian Shrestha RPA-C: [address], [place] [address], Ph. Attender: BRIAN KENYONC [facility] 01/15/2021 12:00:00 AM EDT NORM ([facility]) Brian Shrestha RPA-C: [address], [place] [address], Ph. Attender: BRIAN SHRESTHA RPA-C [facility] 01/15/2021 12:00:00 AM EDT NORM ([facility]) Brian Shrestha RPA-C: [address], [place] [address], Ph. Attender: BRIAN KENYONC [facility] 01/15/2021 12:00:00 AM EDT NORM ([facility]) VALORIE Watts: [address], [place] [address], Ph. Attender: BRIAN EUGENE [facility] 01/15/2021 12:00:00 AM EDT NORM ([facility]) Marielos Gonzales MD: [address], [place] [address], Ph. Attender: Marielos Gonzales [facility] Medical 01/08/2021 12:00:00 AM EDT [place] ([facility]) Marielos Gonzales MD: [address], [place] [address], Ph. Attender: Marielos Gonzales [facility] Medical 01/08/2021 12:00:00 AM EDT NORM ([facility]) Marielos Gonzales MD: [address], [place] [address], Ph. Attender: Marielos Gonzales [facility] Medical 01/08/2021 12:00:00 AM EDT NORM ([facility]) Marielos Gonzales MD: [address], [place] [address], Ph. Attender: Marielos Gonzales [facility] Medical 01/08/2021 12:00:00 AM EDT NORM ([facility]) Marielos Gonzales MD: [address], [place] [address], Ph. Attender: Marielos Gonzales [facility] Medical 01/08/2021 12:00:00 AM EDT NORM ([facility]) Marielos Gonzales MD: [address], [place] [address], Ph. Attender: Marielos Gonzales [facility] Medical 01/08/2021 12:00:00 AM EDT NORM ([facility]) Marielos Gonzales MD: [address], [place] [address], Ph. Attender: Marielos Gonzales [facility] Medical 01/08/2021 12:00:00 AM EDT NORM ([facility]) Outpatient Attender: MELODY Boone/Ananda/Nam/Celi indl 11/07/2020 01:00:00 PM EDT MEDTONY ([facility]) KOSTAS MendiolaC: [address], [place] [address], Ph. Attender: SHEREEN LAN [facility] Medical 10/26/2020 12:00:00 AM EST NORM ([facility]) KOSTAS MendiolaC: [address], [place] [address], Ph. Attender: SHEREEN ALN [facility] Medical 10/26/2020 12:00:00 AM EST NORM ([facility]) KOSTAS MendiolaC: [address], [place] [address], Ph. Attender: SHEREEN LAN [facility] Medical 10/26/2020 12:00:00 AM EST NORM ([facility]) Shereen Lan RPA-C: [address], [place] [address], Ph. Attender: SHEREEN LAN [facility] Medical 10/26/2020 12:00:00 AM EST NORM ([facility]) Shereen Lan RPA-C: [address], [place] [address], Ph. Attender: SHEREEN LAN [facility] Medical 10/26/2020 12:00:00 AM EST NORM ([facility]) Shereen Lan RPA-C: [address], [place] [address], Ph. Attender: SHEREEN LAN [facility] Medical 10/26/2020 12:00:00 AM EST NORM ([facility]) Shereen Lan RPA-C: [address], [place] [address], Ph. Attender: SHEREEN LAN [facility] Medical 10/26/2020 12:00:00 AM EST NORM ([facility]) Shereen Lan RPA-C: [address], [place] [address], Ph. Attender: SHEREEN LAN [facility] Medical 10/26/2020 12:00:00 AM EST NORM ([facility]) Shereen Lan RPA-C: [address], [place] [address], Ph. Attender: SHEREEN LAN [facility] Medical 10/26/2020 12:00:00 AM EST NORM ([facility]) Shereen Lan RPA-C: [address], [place] [address], Ph. Attender: SHEREEN LAN [facility] Medical 10/22/2020 12:00:00 AM EST NORM ([facility]) Shereen Lan RPA-C: [address], [place] [address], Ph. Attender: SHEREEN LAN [facility] Medical 10/22/2020 12:00:00 AM EST NORM ([facility]) Shereen Lan RPA-C: [address], [place] [address], Ph. Attender: SHEREEN LAN [facility] Medical 10/22/2020 12:00:00 AM EST NORM ([facility]) Shereen Lan RPA-C: [address], [place] [address], Ph. Attender: SHEREEN LAN [facility] Medical 10/22/2020 12:00:00 AM EST NORM ([facility]) Shereen Lan RPA-C: [address], [place] [address], Ph. Attender: SHEREEN LAN [facility] Medical 10/22/2020 12:00:00 AM EST NORM ([facility]) Shereen Lan RPA-C: [address], [address], [place] [address], Ph. Attender: SHEREEN LAN [facility] Medical 10/22/2020 12:00:00 AM EST NORM ([facility]) Shereen Lan RPA-C: [address], [place] [address], Ph. Attender: SHEREEN LAN [facility] Medical 10/22/2020 12:00:00 AM EST NORM ([facility]) Shereen Lan RPA-C: [address], [address], [place] [address], Ph. Attender: SHEREEN LAN [facility] Medical 10/22/2020 12:00:00 AM EST NORM ([facility]) Shereen Lan RPA-C: [address], [place] [address], Ph. Attender: SHEREEN LAN [facility] Medical 10/22/2020 12:00:00 AM EST NORM ([facility]) Shereen Lan RPA-C: [address], [place] [address], Ph. Attender: SHEREEN LAN [facility] Medical 10/22/2020 12:00:00 AM EST NORM ([facility]) Shereen Lan RPA-C: [address], [place] [address], Ph. Attender: SHEREEN LAN [facility] Medical 10/17/2020 12:00:00 AM EST NORM ([facility]) Shereen Lan RPA-C: [address], [place] [address], Ph. Attender: SHEREEN LAN [facility] Medical 10/17/2020 12:00:00 AM EST NORM ([facility]) Shereen Lan RPA-C: [address], [place] [address], Ph. Attender: SHEREEN LAN [facility] Medical 10/17/2020 12:00:00 AM EST NORM ([facility]) KOSTAS MendiolaC: [address], [place] [address], Ph. Attender: SHEREEN LAN [facility] Medical 10/17/2020 12:00:00 AM EST NORM ([facility]) KOSTAS MendiolaC: [address], [place] [address], Ph. Attender: SHEREEN LAN [facility] Medical 10/17/2020 12:00:00 AM EST NORM ([facility]) KOSTAS MendiolaC: [address], [place] [address], Ph. Attender: SHEREEN LAN [facility] Medical 10/17/2020 12:00:00 AM EST NORM ([facility]) Shereen Lan RPA-C: [address], [place] [address], Ph. Attender: SHEREEN LAN [facility] Medical 10/17/2020 12:00:00 AM EST NORM ([facility]) Shereen Lan RPA-C: [address], [place] [address], Ph. Attender: SHEREEN LAN [facility] Medical 10/17/2020 12:00:00 AM EST NORM ([facility]) Shereen Lan RPA-C: [address], [place] [address], Ph. Attender: SEHREEN LAN [facility] Medical 10/17/2020 12:00:00 AM EST NORM ([facility]) Shereen Lan RPA-C: [address], [place] [address], Ph. Attender: SHEREEN LAN [facility] Medical 10/17/2020 12:00:00 AM EST NORM ([facility]) Shereen Lan RPA-C: [address], [place] [address], Ph. Attender: SHEREEN LAN [facility] Medical 10/17/2020 12:00:00 AM EST NORM ([facility]) Shereen Lan RPA-C: [address], [place] [address], Ph. Attender: SHEREEN LAN [facility] Medical 09/21/2020 12:00:00 AM EST NORM ([facility]) Shereen Lan RPA-C: [address], [place] [address], Ph. Attender: SHEREEN LAN [facility] Medical 09/21/2020 12:00:00 AM EST NORM ([facility]) Shereen Lan RPA-C: [address], [place] [address], Ph. Attender: SHEREEN ALN [facility] Medical 09/21/2020 12:00:00 AM EST NORM ([facility]) Shereen Lan RPA-C: [address], [place] [address], Ph. Attender: SHEREEN LAN [facility] Medical 09/21/2020 12:00:00 AM EST NORM ([facility]) Shereen Lan RPA-C: [address], [place] [address], Ph. Attender: SHEREEN LAN [facility] Medical 09/21/2020 12:00:00 AM EST NORM ([facility]) Shereen Lan RPA-C: [address], [place] [address], Ph. Attender: SHEREEN LAN [facility] Medical 09/21/2020 12:00:00 AM EST NORM ([facility]) Shereen Lan RPA-C: [address], [place] [address], Ph. Attender: SHEREEN LAN [facility] Medical 09/21/2020 12:00:00 AM EST NORM ([facility]) Shereen Lan RPA-C: [address], [place] [address], Ph. Attender: [facility] 09/21/2020 12:00:00 AM EST NORM ([facility]) KOSTAS MendiolaC: [address], [place] [address], Ph. Attender: SHEREEN LAN [facility] Medical 09/21/2020 12:00:00 AM EST NORM ([facility]) KOSTAS MendiolaC: [address], [place] [address], Ph. Attender: SHEREEN LAN [facility] Medical 09/21/2020 12:00:00 AM EST NORM ([facility]) KOSTAS MendiolaC: [address], [place] [address], Ph. Attender: SHEREEN LAN [facility] Medical 09/21/2020 12:00:00 AM EST NORM ([facility]) KOSTAS MendiolaC: [address], [place] [address], Ph. Attender: SHEREEN LAN [facility] Medical 09/21/2020 12:00:00 AM EST NORM ([facility]) JOSE SpencerC: [address], [place] [address], Ph. Attender: Chiqui MACDONALD [facility] 09/06/2020 12:00:00 AM EST NORM ([facility]) Chiqui Madera PA-C: [address], [place] [address], Ph. Attender: Chiqui MACDONALD [facility] Medical 09/06/2020 12:00:00 AM EST NORM ([facility]) Chiqui Madera PA-C: [address], [place] [address], Ph. Attender: Chiqui MACDONALD [facility] Medical 09/06/2020 12:00:00 AM EST NORM ([facility]) Chiqui Madera PA-C: [address], [place] [address], Ph. Attender: Chiqui MACDONALD [facility] Medical 09/06/2020 12:00:00 AM EST NORM ([facility]) Chiqui Madera PA-C: [address], [place] [address], Ph. Attender: Chiqui MACDONALD [facility] Medical 09/06/2020 12:00:00 AM EST NORM ([facility]) Chiqui Madera PA-C: [address], [place] [address], Ph. Attender: Chiqui MACDONALD [facility] Medical 09/06/2020 12:00:00 AM EST NORM ([facility]) Chiqui Madera PA-C: [address], [place] [address], Ph. Attender: Chiqui MACDONALD [facility] Medical 09/06/2020 12:00:00 AM EST NORM ([facility]) Chiqui Madera PA-C: [address], [place] [address], Ph. Attender: Chiqui MACDONALD [facility] Medical 09/06/2020 12:00:00 AM EST NORM ([facility]) Chiqui Madera PA-C: [address], [place] [address], Ph. Attender: Chiqui MACDONALD [facility] Medical 09/06/2020 12:00:00 AM EST NORM ([facility]) Chiqui Madera PA-C: [address], [place] [address], Ph. Attender: Chiqui MACDONALD [facility] Medical 09/06/2020 12:00:00 AM EST NORM ([facility]) Chiqui Madera PA-C: [address], [place] [address], Ph. Attender: Chiqui MACDONALD [facility] Medical 09/06/2020 12:00:00 AM EST NORM ([facility]) Chiqui Madera PA-C: [address], [place] [address], Ph. Attender: Chiqui MACDONALD [facility] Medical 09/06/2020 12:00:00 AM EST NORM ([facility]) Chiqui Madera PA-C: [address], [place] [address], Ph. Attender: Chiqui MACDONALD [facility] Medical 09/06/2020 12:00:00 AM EST NORM ([facility]) Chiqiu Madera PA-C: [address], [place] [address], Ph. Attender: Chiqui MACDONALD [facility] Medical 08/30/2020 12:00:00 AM EST NORM ([facility]) Chiqui Madera PA-C: [address], [place] [address], Ph. Attender: Chiqui MACDONALD [facility] Medical 08/30/2020 12:00:00 AM EST NORM ([facility]) Chiqui Madera PA-C: [address], [place] [address], Ph. Attender: Chiqui MACDONALD [facility] Medical 08/30/2020 12:00:00 AM EST NORM ([facility]) Chiqui Madera PA-C: [address], [place] [address], Ph. Attender: Chiqui MACDONALD [facility] Medical 08/30/2020 12:00:00 AM EST NORM ([facility]) Chiqui Madera PA-C: [address], [place] [address], Ph. Attender: Chiqui MACDONALD [facility] Medical 08/30/2020 12:00:00 AM EST NORM ([facility]) Chiqui Madera PA-C: [address], [place] [address], Ph. Attender: Chiqui [facility]DON[facility] Medical 08/30/2020 12:00:00 AM EST NORM ([facility]) Chiqui Madera PA-C: [address], [place] [address], Ph. Attender: Chiqui [facility]DON[facility] Medical 08/30/2020 12:00:00 AM EST NORM ([facility]) Chiqui Madera PA-C: [address], [place] [address], Ph. Attender: Chiqui [facility]DON[facility] Medical 08/30/2020 12:00:00 AM EST NORM ([facility]) Chiqui Madera PA-C: [address], [place] [address], Ph. Attender: Chiqui MACDON[facility] Medical 08/30/2020 12:00:00 AM EST NORM ([facility]) Chiqui Madera PA-C: [address], [place] [address], Ph. Attender: Chiqui MACDON[facility] Medical 08/30/2020 12:00:00 AM EST NORM ([facility]) Chiqui Madera PA-C: [address], [place] [address], Ph. Attender: Chiqui MACDON[facility] Medical 08/30/2020 12:00:00 AM EST NORM ([facility]) Chiqui Madera PA-C: [address], [place] [address], Ph. Attender: Chiqui [facility]DON[facility] Medical 08/30/2020 12:00:00 AM EST NORM ([facility]) Chiqui Madera PA-C: [address], [place] [address], Ph. Attender: Chiqui MACDON[facility] Medical 08/30/2020 12:00:00 AM EST NORM ([facility]) Chiqui Madera PA-C: [address], [place] [address], Ph. Attender: Chiqui MACDON[facility] Medical 08/30/2020 12:00:00 AM EST NORM ([facility]) Chiqui Madera PA-C: [address], [place] [address], Ph. Attender: Chiqui MACDON[facility] Medical 08/30/2020 12:00:00 AM EST NORM ([facility]) Chiqui Madera PA-C: [address], [place] [address], Ph. Attender: Chiqui MACDON[facility] Medical 08/30/2020 12:00:00 AM EST NORM ([facility]) Chiqui Madera PA-C: [address], [place] [address], Ph. Attender: Chiqui [facility]DON[facility] Medical 08/30/2020 12:00:00 AM EST NORM ([facility]) Chiqui Madera PA-C: [address], [place] [address], Ph. Attender: Chiqui [facility]DON[facility] Medical 08/30/2020 12:00:00 AM EST NORM ([facility]) Chiqui Madera PA-C: [address], [place] [address], Ph. Attender: Chiqui [facility]DON[facility] Medical 08/30/2020 12:00:00 AM EST NORM ([facility]) Chiqui Madera PA-C: [address], [place] [address], Ph. Attender: Chiqui [facility]DON[facility] Medical 08/30/2020 12:00:00 AM EST NORM ([facility]) Chiqui Madera PA-C: [address], [place] [address], Ph. Attender: Chiqui [facility]DON[facility] Medical 08/30/2020 12:00:00 AM EST NORM ([facility]) Chiqui Madera PA-C: [address], [place] [address], Ph. Attender: Chiqui [facility]DON[facility] Medical 08/30/2020 12:00:00 AM EST NORM ([facility]) Chiqui Scordo, PA-C: [address], [place] [address], Ph. Attender: Chiqui [facility]DON[facility] Medical 08/30/2020 12:00:00 AM EST NORM ([facility]) Chiqui Madera PA-C: [address], [place] [address], Ph. Attender: Chiqui MACDON[facility] Medical 08/30/2020 12:00:00 AM EST NORM ([facility]) Chiqui Madera PA-C: [address], [place] [address], Ph. Attender: Chiqui MACDON[facility] Medical 08/30/2020 12:00:00 AM EST NORM ([facility]) Chiqui Madera PA-C: [address], [place] [address], Ph. Attender: Chiqui [facility]DON[facility] Medical 08/30/2020 12:00:00 AM EST NORM ([facility]) Chiqui Madera PA-C: [address], [place] [address], Ph. Attender: Chiqui [facility]DON[facility] Medical 08/30/2020 12:00:00 AM EST NORM ([facility]) Chiqui Madera PA-C: [address], [place] [address], Ph. Attender: Chiqui [facility]DON[facility] Medical 08/30/2020 12:00:00 AM EST NORM ([facility]) Shereen Lan RPA-C: [address], [place] [address], Ph. Attender: SHEREEN LAN [facility] Medical 08/29/2020 12:00:00 AM EST NORM ([facility]) KOSTAS MendiolaC: [address], [place] [address], Ph. Attender: SHEREEN LAN [facility] Medical 08/29/2020 12:00:00 AM EST NORM ([facility]) KOSTAS MendiolaC: [address], [place] [address], Ph. Attender: SHEREEN LAN [facility] Medical 08/29/2020 12:00:00 AM EST NORM ([facility]) KOSTAS MendiolaC: [address], [place] [address], Ph. Attender: SHEREEN LAN [facility] Medical 08/29/2020 12:00:00 AM EST NORM ([facility]) KOSTAS MendiolaC: [address], [place] [address], Ph. Attender: SHEREEN LAN [facility] Medical 08/29/2020 12:00:00 AM EST NORM ([facility]) KOSTAS MendiolaC: [address], [place] [address], Ph. Attender: SHEREEN LAN [facility] Medical 08/29/2020 12:00:00 AM EST NORM ([facility]) KOSTAS MendiolaC: [address], [place] [address], Ph. Attender: SHEREEN LAN [facility] Medical 08/29/2020 12:00:00 AM EST NORM ([facility]) Shereen Lan RPAKaushikC: [address], [place] [address], Ph. Attender: SHEREEN LAN [facility] Medical 08/29/2020 12:00:00 AM EST NORM ([facility]) KOSTAS MendiolaC: [address], [place] [address], Ph. Attender: SHEREEN LAN [facility] Medical 08/29/2020 12:00:00 AM EST NORM ([facility]) KOSTAS MendiolaC: [address], [place] [address], Ph. Attender: SHEREEN LAN [facility] Medical 08/29/2020 12:00:00 AM EST NORM ([facility]) KOSTAS MendiolaC: [address], [place] [address], Ph. Attender: SHEREEN LAN [facility] Medical 08/29/2020 12:00:00 AM EST NORM ([facility]) KOSTAS MendiolaC: [address], [place] [address], Ph. Attender: SHEREEN LAN [facility] Medical 08/29/2020 12:00:00 AM EST NORM ([facility]) KOSTAS MendiolaC: [address], [place] [address], Ph. Attender: SHEREEN LAN [facility] Medical 08/29/2020 12:00:00 AM EST NORM ([facility]) KOSTAS MendiolaC: [address], [place] [address], Ph. Attender: SHEREEN LAN [facility] Medical 08/29/2020 12:00:00 AM EST NORM ([facility]) KOSTAS MendiolaC: [address], [place] [address], Ph. Attender: SHEREEN LAN [facility] Medical 08/29/2020 12:00:00 AM EST NORM ([facility]) Outpatient Attender: Teena sandoval 08/21/2020 02:15:00 PM EST MEDENT ([facility]) Medications Medication Brand Name Start Date Product Form Dose Route Admi nistrative Instructions Pharmacy Instructions Status Indications Reaction Description Data Source(s) cetirizine hydrochloride 10 MG Oral Tablet cetirizine 10 mg tablet cetirizine 10 mg tablet 08/29/2020 12:00:00 AM EST complete d cetirizine hydrochloride 10 MG Oral Tablet NORM ([facility]) cetirizine hydrochloride 10 MG Oral Tablet cetirizine 10 mg tablet cetirizine 10 mg tablet 08/29/2020 12:00:00 AM EST complete d cetirizine hydrochloride 10 MG Oral Tablet NORM ([facility]) 60 ACTUAT Albuterol 0.09 MG/ACTUAT Metered Dose Inhaler Albu terol Sulfate HFA 08/21/2020 12:00:00 AM EST RESPIRATORY active MEDENT ([facility]) Ibuprofen 800 MG Oral Tablet ibuprofen 8 00 mg tablet TAKE 1 TABLET BY MOUTH EVERY 6 TO 8 HOURS NEEDED ibuprofen 800 mg tablet TAKE 1 TABLET BY MOUTH EVERY 6 TO 8 HOURS NEEDED completed ibuprofen 800 MG Oral Tablet NORM ([facility]) Azithromycin 250 MG Oral Tablet azithrom [...] completed azithromycin 250 MG Oral Tablet NORM ([facility]) Levothyroxine Sodium 0.025 MG Oral Table t [Euthyrox] Euthyrox 25 mcg tablet TAKE 1 TABLET BY MOUTH ONCE DAILY Euthyrox 25 mcg tablet TAKE 1 TABLET BY MOUTH ONCE DAILY completed levothy roxine sodium 0.025 MG Oral Tablet [Euthyrox] NORM ([facility]) POLYETHYLENE GLYCOL 3350 142 MG/ML Oral Solution [Miralax] Miralax 17 gram/dose oral powder Take by oral route. Miralax 17 gram/dose oral powder Take by oral route. completed polyeth ylene glycol 3350 08695 MG Powder for Oral Solution [Miralax] NORM ([facility]) Clindamycin 300 MG Oral Capsule clindamy nestor HCl 300 mg capsule TAKE 1 CAPSULE BY MOUTH THREE TIMES DAILY FOR 10 DAYS clindamycin HCl 300 mg capsule TAKE 1 CAPSULE BY MOUTH THREE TIMES DAILY FOR 10 DAYS completed clindamycin 300 MG Oral Capsule NORM ([facility]) Ibuprofen 800 MG Oral Tablet ibuprofen 8 00 mg tablet TAKE 1 TABLET BY MOUTH EVERY 6 TO 8 HOURS NEEDED ibuprofen 800 mg tablet TAKE 1 TABLET BY MOUTH EVERY 6 TO 8 HOURS NEEDED completed ibuprofen 800 MG Oral Tablet NORM ([facility]) Azithromycin 250 MG Oral Tablet azithrom [...] completed azithromycin 250 MG Oral Tablet NORM ([facility]) Clindamycin 300 MG Oral Capsule clindamycin HCl 300 mg capsule clindamycin HCl 300 mg capsule completed clindam ycin 300 MG Oral Capsule NORM ([facility]) Clindamycin 300 MG Oral Capsule clindamycin HCl 300 mg capsule clindamycin HCl 300 mg capsule completed clindam ycin 300 MG Oral Capsule NORM ([facility]) Azithromycin 250 MG Oral Tablet azithrom ycin [...] completed azithromycin 250 MG Oral Tablet NORM ([facility]) Levothyroxine Sodium 0.05 MG Oral Tablet [Euthyrox] Euthyrox 50 mcg tablet TAKE 1 TABLET BY MOUTH ONCE DAILY Euthyrox 50 mcg tablet TAKE 1 TABLET BY MOUTH ONCE DAILY completed levothy roxine sodium 0.05 MG Oral Tablet [Euthyrox] NORM ([facility]) Levothyroxine Sodium 0.025 MG Oral Table t [Euthyrox] Euthyrox 25 mcg tablet TAKE 1 TABLET BY MOUTH ONCE DAILY Euthyrox 25 mcg tablet TAKE 1 TABLET BY MOUTH ONCE DAILY completed levothy roxine sodium 0.025 MG Oral Tablet [Euthyrox] NORM ([facility]) Ibuprofen 800 MG Oral Tablet ibuprofen 8 00 mg tablet TAKE 1 TABLET BY MOUTH EVERY 6 TO 8 HOURS NEEDED ibuprofen 800 mg tablet TAKE 1 TABLET BY MOUTH EVERY 6 TO 8 HOURS NEEDED completed ibuprofen 800 MG Oral Tablet NORM ([facility]) Azithromycin 250 MG Oral Tablet azithrom [...] completed azithromycin 250 MG Oral Tablet NORM ([facility]) Clindamycin 300 MG Oral Capsule clindamycin HCl 300 mg capsule clindamycin HCl 300 mg capsule completed clindam ycin 300 MG Oral Capsule NORM ([facility]) Clindamycin 300 MG Oral Capsule clindamycin HCl 300 mg capsule clindamycin HCl 300 mg capsule completed clindam ycin 300 MG Oral Capsule NORM ([facility]) Levothyroxine Sodium 0.05 MG Oral Tablet [Euthyrox] Euthyrox 50 mcg tablet TAKE 1 TABLET BY MOUTH ONCE DAILY Euthyrox 50 mcg tablet TAKE 1 TABLET BY MOUTH ONCE DAILY completed levothy roxine sodium 0.05 MG Oral Tablet [Euthyrox] NORM ([facility]) Clindamycin 300 MG Oral Capsule clindamycin HCl 300 mg capsule clindamycin HCl 300 mg capsule completed clindam ycin 300 MG Oral Capsule NORM ([facility]) Azithromycin 250 MG Oral Tablet azithrom ycin [...] completed azithromycin 250 MG Oral Tablet NORM ([facility]) Ibuprofen 800 MG Oral Tablet ibuprofen 8 00 mg tablet TAKE 1 TABLET BY MOUTH EVERY 6 TO 8 HOURS NEEDED ibuprofen 800 mg tablet TAKE 1 TABLET BY MOUTH EVERY 6 TO 8 HOURS NEEDED completed ibuprofen 800 MG Oral Tablet NORM ([facility]) Ibuprofen 800 MG Oral Tablet ibuprofen 8 00 mg tablet TAKE 1 TABLET BY MOUTH EVERY 6 TO 8 HOURS NEEDED ibuprofen 800 mg tablet TAKE 1 TABLET BY MOUTH EVERY 6 TO 8 HOURS NEEDED completed ibuprofen 800 MG Oral Tablet NORM ([facility]) Ibuprofen 800 MG Oral Tablet ibuprofen 8 00 mg tablet TAKE 1 TABLET BY MOUTH EVERY 6 TO 8 HOURS NEEDED ibuprofen 800 mg tablet TAKE 1 TABLET BY MOUTH EVERY 6 TO 8 HOURS NEEDED completed ibuprofen 800 MG Oral Tablet NORM ([facility]) Azithromycin 250 MG Oral Tablet azithrom [...] completed azithromycin 250 MG Oral Tablet NORM ([facility]) Clindamycin 300 MG Oral Capsule clindamy nestor HCl 300 mg capsule TAKE 1 CAPSULE BY MOUTH THREE TIMES DAILY FOR 10 DAYS clindamycin HCl 300 mg capsule TAKE 1 CAPSULE BY MOUTH THREE TIMES DAILY FOR 10 DAYS completed clindamycin 300 MG Oral Capsule NORM ([facility]) Clindamycin 300 MG Oral Capsule clindamy nestor HCl 300 mg capsule TAKE 1 CAPSULE BY MOUTH THREE TIMES DAILY FOR 10 DAYS clindamycin HCl 300 mg capsule TAKE 1 CAPSULE BY MOUTH THREE TIMES DAILY FOR 10 DAYS completed clindamycin 300 MG Oral Capsule NORM ([facility]) Clindamycin 300 MG Oral Capsule clindamycin HCl 300 mg capsule clindamycin HCl 300 mg capsule completed clindam ycin 300 MG Oral Capsule NORM ([facility]) Levothyroxine Sodium 0.025 MG Oral Table t [Euthyrox] Euthyrox 25 mcg tablet TAKE 1 TABLET BY MOUTH ONCE DAILY Euthyrox 25 mcg tablet TAKE 1 TABLET BY MOUTH ONCE DAILY completed levothy roxine sodium 0.025 MG Oral Tablet [Euthyrox] NORM ([facility]) Azithromycin 250 MG Oral Tablet azithrom [...] completed azithromycin 250 MG Oral Tablet NORM ([facility]) Levothyroxine Sodium 0.025 MG Oral Table t [Euthyrox] Euthyrox 25 mcg tablet TAKE 1 TABLET BY MOUTH ONCE DAILY Euthyrox 25 mcg tablet TAKE 1 TABLET BY MOUTH ONCE DAILY completed levothy roxine sodium 0.025 MG Oral Tablet [Euthyrox] NORM ([facility]) Clindamycin 300 MG Oral Capsule clindamy nestor HCl 300 mg capsule TAKE 1 CAPSULE BY MOUTH THREE TIMES DAILY FOR 10 DAYS clindamycin HCl 300 mg capsule TAKE 1 CAPSULE BY MOUTH THREE TIMES DAILY FOR 10 DAYS completed clindamycin 300 MG Oral Capsule NORM ([facility]) POLYETHYLENE GLYCOL 3350 142 MG/ML Oral Solution [Miralax] Miralax 17 gram/dose oral powder Take by oral route. Miralax 17 gram/dose oral powder Take by oral route. completed polyeth ylene glycol 3350 47328 MG Powder for Oral Solution [Miralax] NORM ([facility]) Azithromycin 250 MG Oral Tablet azithrom [...] completed azithromycin 250 MG Oral Tablet NORM ([facility]) cefdinir 300 MG Oral Capsule cefdinir 30 0 mg capsule TAKE 1 CAPSULE BY MOUTH EVERY 12 HOURS FOR 5 DAYS cefdinir 300 mg capsule TAKE 1 CAPSULE B Y MOUTH EVERY 12 HOURS FOR 5 DAYS completed ce fdinir 300 MG Oral Capsule NORM ([facility]) Azithromycin 250 MG Oral Tablet azithrom ycin [...] completed azithromycin 250 MG Oral Tablet NORM ([facility]) Clindamycin 300 MG Oral Capsule clindamycin HCl 300 mg capsule clindamycin HCl 300 mg capsule completed clindam ycin 300 MG Oral Capsule NORM ([facility]) Levothyroxine Sodium 0.025 MG Oral Table t [Euthyrox] Euthyrox 25 mcg tablet TAKE 1 TABLET BY MOUTH ONCE DAILY Euthyrox 25 mcg tablet TAKE 1 TABLET BY MOUTH ONCE DAILY completed levothy roxine sodium 0.025 MG Oral Tablet [Euthyrox] NORM ([facility]) Azithromycin 250 MG Oral Tablet azithrom [...] completed azithromycin 250 MG Oral Tablet NORM ([facility]) Ibuprofen 800 MG Oral Tablet ibuprofen 8 00 mg tablet TAKE 1 TABLET BY MOUTH EVERY 6 TO 8 HOURS NEEDED ibuprofen 800 mg tablet TAKE 1 TABLET BY MOUTH EVERY 6 TO 8 HOURS NEEDED completed ibuprofen 800 MG Oral Tablet NORM ([facility]) Ibuprofen 800 MG Oral Tablet ibuprofen 8 00 mg tablet TAKE 1 TABLET BY MOUTH EVERY 6 TO 8 HOURS NEEDED ibuprofen 800 mg tablet TAKE 1 TABLET BY MOUTH EVERY 6 TO 8 HOURS NEEDED completed ibuprofen 800 MG Oral Tablet NORM ([facility]) Ibuprofen 800 MG Oral Tablet ibuprofen 8 00 mg tablet TAKE 1 TABLET BY MOUTH EVERY 6 TO 8 HOURS NEEDED ibuprofen 800 mg tablet TAKE 1 TABLET BY MOUTH EVERY 6 TO 8 HOURS NEEDED completed ibuprofen 800 MG Oral Tablet NORM ([facility]) Levothyroxine Sodium 0.05 MG Oral Tablet [Euthyrox] Euthyrox 50 mcg tablet TAKE 1 TABLET BY MOUTH ONCE DAILY Euthyrox 50 mcg tablet TAKE 1 TABLET BY MOUTH ONCE DAILY completed levothy roxine sodium 0.05 MG Oral Tablet [Euthyrox] NORM ([facility]) Levothyroxine Sodium 0.025 MG Oral Table t [Euthyrox] Euthyrox 25 mcg tablet TAKE 1 TABLET BY MOUTH ONCE DAILY Euthyrox 25 mcg tablet TAKE 1 TABLET BY MOUTH ONCE DAILY completed levothy roxine sodium 0.025 MG Oral Tablet [Euthyrox] NORM ([facility]) albuterol sulfate HFA 90 mcg/actuation aerosol inhaler [id number] completed [id number] 200 ACTUAT albuterol 0.09 MG/ACTUAT Metered Dose Inhaler NORM ([facility]) Azithromycin 250 MG Oral Tablet azithrom [...] completed azithromycin 250 MG Oral Tablet NORM ([facility]) d3 50 mcg (1999) caps completed d3 50 mcg (1999) caps NORM ([facility]) d3 50 mcg (1999 ut) caps completed d3 50 mcg (1999) caps NORM ([facility]) Ibuprofen 800 MG Oral Tablet ibuprofen 8 00 mg tablet TAKE 1 TABLET BY MOUTH EVERY 6 TO 8 HOURS NEEDED ibuprofen 800 mg tablet TAKE 1 TABLET BY MOUTH EVERY 6 TO 8 HOURS NEEDED completed ibuprofen 800 MG Oral Tablet NORM ([facility]) Ibuprofen 800 MG Oral Tablet ibuprofen 8 00 mg tablet TAKE 1 TABLET BY MOUTH EVERY 6 TO 8 HOURS NEEDED ibuprofen 800 mg tablet TAKE 1 TABLET BY MOUTH EVERY 6 TO 8 HOURS NEEDED completed ibuprofen 800 MG Oral Tablet NORM ([facility]) Clindamycin 300 MG Oral Capsule clindamycin HCl 300 mg capsule clindamycin HCl 300 mg capsule completed clindam ycin 300 MG Oral Capsule LACASSINE ([facility]) Levothyroxine Sodium 0.05 MG Oral Tablet [Euthyrox] Euthyrox 50 mcg tablet TAKE 1 TABLET BY MOUTH ONCE DAILY Euthyrox 50 mcg tablet TAKE 1 TABLET BY MOUTH ONCE DAILY completed levothy roxine sodium 0.05 MG Oral Tablet [Euthyrox] NORM ([facility]) Ibuprofen 800 MG Oral Tablet ibuprofen 8 00 mg tablet TAKE 1 TABLET BY MOUTH EVERY 6 TO 8 HOURS NEEDED ibuprofen 800 mg tablet TAKE 1 TABLET BY MOUTH EVERY 6 TO 8 HOURS NEEDED completed ibuprofen 800 MG Oral Tablet NORM ([facility]) Levothyroxine Sodium 0.025 MG Oral Table t [Euthyrox] Euthyrox 25 mcg tablet TAKE 1 TABLET BY MOUTH ONCE DAILY Euthyrox 25 mcg tablet TAKE 1 TABLET BY MOUTH ONCE DAILY completed levothy roxine sodium 0.025 MG Oral Tablet [Euthyrox] NORM ([facility]) Azithromycin 250 MG Oral Tablet azithrom [...] 5 completed azithromycin 250 MG Oral Tablet LACASSINE ([facility]) Clindamycin 300 MG Oral Capsule clindamycin HCl 300 mg capsule clindamycin HCl 300 mg capsule completed clindam ycin 300 MG Oral Capsule LACASSINE ([facility]) POLYETHYLENE GLYCOL 3350 142 MG/ML Oral Solution [Miralax] Miralax 17 gram/dose oral powder Take by oral route. Miralax 17 gram/dose oral powder Take by oral route. completed polyeth ylene glycol 3350 60018 MG Powder for Oral Solution [Miralax] NORM ([facility]) Ibuprofen 800 MG Oral Tablet ibuprofen 8 00 mg tablet TAKE 1 TABLET BY MOUTH EVERY 6 TO 8 HOURS NEEDED ibuprofen 800 mg tablet TAKE 1 TABLET BY MOUTH EVERY 6 TO 8 HOURS NEEDED completed ibuprofen 800 MG Oral Tablet NORM ([facility]) POLYETHYLENE GLYCOL 3350 142 MG/ML Oral Solution [Miralax] Miralax 17 gram/dose oral powder Take by oral route. Miralax 17 gram/dose oral powder Take by oral route. completed polyeth ylene glycol 3350 18639 MG Powder for Oral Solution [Miralax] NORM ([facility]) Ibuprofen 800 MG Oral Tablet ibuprofen 8 00 mg tablet TAKE 1 TABLET BY MOUTH EVERY 6 TO 8 HOURS NEEDED ibuprofen 800 mg tablet TAKE 1 TABLET BY MOUTH EVERY 6 TO 8 HOURS NEEDED completed ibuprofen 800 MG Oral Tablet NORM ([facility]) Ibuprofen 800 MG Oral Tablet ibuprofen 8 00 mg tablet TAKE 1 TABLET BY MOUTH EVERY 6 TO 8 HOURS NEEDED ibuprofen 800 mg tablet TAKE 1 TABLET BY MOUTH EVERY 6 TO 8 HOURS NEEDED completed ibuprofen 800 MG Oral Tablet NORM ([facility]) Clindamycin 300 MG Oral Capsule clindamycin HCl 300 mg capsule clindamycin HCl 300 mg capsule completed clindam ycin 300 MG Oral Capsule LAC[place]INE ([facility]) albuterol sulfate HFA 90 mcg/actuation aerosol inhaler 309118 completed [id number] 200 ACTUAT albuterol 0.09 MG/ACTUAT Metered Dose Inhaler LACASSINE ([facility]) fluticasone 113 mcg-salmeterol 14 mcg/actuation breath activated powdr 133126 completed 60 ACTUAT flut icasone propionate 0.113 MG/ACTUAT / salmeterol 0.014 MG/ACTUAT Dry Powder Inhaler LACASSINE ([facility]) Insurance Providers Payer name Policy type / Coverage type Policy ID Covered democrat ID Covered democrat's relationship to rodgers Policy Rodgers Plan Information [employer] [id number] Self [id number] [employer] [id number] Self [id number] [employer] emp [id number] Employee [id number] [employer] emp [id number] Employee [id number] Managed Care - [facility] Community Plan P [id number] S [id number] [employer] [id number] Self [id number] Medicaid O UNAVAILABLE S UNAVAILA BLE Sliding Fee Scale P [id number] S [id number] SELF PAY UNAVAILABLE SP UNAVAILA BLE MEDICAID [id number] SP [id number] [facility] Health Maintenance Organization (HMO) [id number] Self [id number] [facility] [employer] (HMO) [id number] Self [id number] [facility] [employer] (HMO) [id number] Self [id number] [facility] [employer] (HMO) [id number] Self [id number] [facility] [employer] (HMO) [id number] Self [id number] [place] [facility] Health Maintenance Organization (HMO) [id number] Self [facility] Community Plan Health Maintenance Organization (HMO) [id number] Self [employer] AMERICHOICE XIX -HMO [id number] 18 [id number] [facility] [id number] SP [id number] [facility] O [id number] S [id number] [place]ED[place] [id number] SP [id number] MEDICAID [id number] SP [id number] Medicaid S [id number] S [id number] Managed Care - [facility] Community Plan S UNAVAILABLE S UNAVAILABLE Problems, Conditions, and Diagnoses Code Display Name Description Problem Type Effective Dates Data Source(s) [id number] COVID-19 Covid-19 Problem 07/22/2021 12:00:00 AM ES Colette ZHENG ([facility]) [id number] Vitamin D deficiency Vitamin D Deficiency Problem 07/17/2021 09:50:12 AM KELLY ZHENG ([facility]) [id number] Asthma Asthma Problem 01/15/2021 12:00:00 AM ED Colette ZHENG ([facility]) [id number] Asthma Asthma Problem 01/15/2021 12:00:00 AM ED Colette ZHENG ([facility]) [id number] Asthma Asthma Problem 01/15/2021 12:00:00 AM ED T NORM ([facility]) [id number] Asthma Asthma Problem 01/15/2021 12:00:00 AM ED T NORM ([facility]) [id number] Asthma Asthma Problem 01/15/2021 12:00:00 AM ED T NORM ([facility]) [id number] Asthma Asthma Problem 01/15/2021 12:00:00 AM ED T NORM ([facility]) [id number] Pharyngeal finding Pharyngeal Finding Problem 03/2020 12:00:00 AM EDT - 01/15/2021 12:00:00 AM EDT NORM ([facility]) [id number] Pharyngeal finding Pharyngeal Finding Problem 03/2020 12:00:00 AM EDT - 01/15/2021 12:00:00 AM EDT NORM ([facility]) [id number] Pharyngeal finding Pharyngeal Finding Problem 03/2020 12:00:00 AM EDT - 01/15/2021 12:00:00 AM EDT NORM ([facility]) [id number] Pharyngeal finding Pharyngeal Finding Problem 03/2020 12:00:00 AM EDT - 01/15/2021 12:00:00 AM EDT NORM ([facility]) [id number] Pharyngeal finding Pharyngeal Finding Problem 03/2020 12:00:00 AM EDT - 01/15/2021 12:00:00 AM EDT NORM ([facility]) [id number] Pharyngeal finding Pharyngeal Finding Problem 03/2020 12:00:00 AM EDT - 01/15/2021 12:00:00 AM EDT NORM ([facility]) [id number] Clinical finding Clinical Finding Problem 12:00:00 AM EST - 01/15/2021 12:00:00 AM EDT NORM ([facility]) [id number] Adult health examination Adult Health Examination Prob ken 10/24/2019 12:00:00 AM EST - 04/02/2021 12:00:00 AM EDT NORM ([facility]) [id number] Influenza vaccine needed Influenza Vaccine Needed Pro blem 10/24/2019 12:00:00 AM EST - 04/02/2021 12:00:00 AM EDT NORM ([facility]) [id number] Left upper quadrant pain Left Upper Quadrant Pain Prob ken 10/24/2019 12:00:00 AM EST - 01/15/2021 12:00:00 AM EDT [place] ([facility]) [id number] Exacerbation of intermittent asthma Exac erbation of Intermittent Asthma Problem 10/24/2019 12:00:00 AM EST - 01/15/2021 12:00:00 AM EDT [place] ([facility]) [id number] Iron deficiency Iron Deficiency Problem 12:00:00 AM EST - 04/02/2021 12:00:00 AM EDT [place] ([facility]) [id number] Adult health examination Adult Health Examination Prob ken 10/24/2019 12:00:00 AM EST - 04/02/2021 12:00:00 AM EDT [place] ([facility]) [id number] Influenza vaccine needed Influenza Vaccine Needed Pro blem 10/24/2019 12:00:00 AM EST - 04/02/2021 12:00:00 AM EDT [place] ([facility]) [id number] Left upper quadrant pain Left Upper Quadrant Pain Prob ken 10/24/2019 12:00:00 AM EST - 01/15/2021 12:00:00 AM EDT [place] ([facility]) [id number] Exacerbation of intermittent asthma Exac erbation of Intermittent Asthma Problem 10/24/2019 12:00:00 AM EST - 01/15/2021 12:00:00 AM EDT [place] ([facility]) 95132830 Iron deficiency Iron Deficiency Problem 0 12:00:00 AM EST - 04/02/2021 12:00:00 AM EDT [place] ([facility]) [id number] Clinical finding Clinical Finding Problem 020 12:00:00 AM EST - 01/15/2021 12:00:00 AM EDT NORM ([facility]) [id number] Adult health examination Adult Health Examination Prob ken 10/24/2019 12:00:00 AM EST - 04/02/2021 12:00:00 AM EDT [place] ([facility]) [id number] Influenza vaccine needed Influenza Vaccine Needed Pro blem 10/24/2019 12:00:00 AM EST - 04/02/2021 12:00:00 AM EDT [place] ([facility]) 365796421 Left upper quadrant pain Left Upper Quadrant Pain Prob ken 10/24/2019 12:00:00 AM EST - 01/15/2021 12:00:00 AM EDT [place] ([facility]) [id number] Exacerbation of intermittent asthma Exac erbation of Intermittent Asthma Problem 10/24/2019 12:00:00 AM EST - 01/15/2021 12:00:00 AM EDT [place] ([facility]) [id number] Iron deficiency Iron Deficiency Problem 0 12:00:00 AM EST - 04/02/2021 12:00:00 AM EDT [place] ([facility]) [id number] Clinical finding Clinical Finding Problem 020 12:00:00 AM EST - 01/15/2021 12:00:00 AM EDT [place] ([facility]) [id number] Adult health examination Adult Health Examination Prob ken 10/24/2019 12:00:00 AM EST - 04/02/2021 12:00:00 AM EDT [place] ([facility]) [id number] Influenza vaccine needed Influenza Vaccine Needed Pro blem 10/24/2019 12:00:00 AM EST - 04/02/2021 12:00:00 AM EDT [place] ([facility]) 106521902 Left upper quadrant pain Left Upper Quadrant Pain Prob ken 10/24/2019 12:00:00 AM EST - 01/15/2021 12:00:00 AM EDT [place] ([facility]) [id number] Exacerbation of intermittent asthma Exac erbation of Intermittent Asthma Problem 10/24/2019 12:00:00 AM EST - 01/15/2021 12:00:00 AM EDT [place] ([facility]) 85300914 Iron deficiency Iron Deficiency Problem 0 12:00:00 AM EST - 04/02/2021 12:00:00 AM EDT NORM ([facility]) [id number] Clinical finding Clinical Finding Problem 12:00:00 AM EST - 01/15/2021 12:00:00 AM EDT NORM ([facility]) [id number] Left upper quadrant pain Left Upper Quadrant Pain Prob ken 10/24/2019 12:00:00 AM EST - 01/15/2021 12:00:00 AM EDT [place] ([facility]) [id number] Exacerbation of intermittent asthma Exac erbation of Intermittent Asthma Problem 10/24/2019 12:00:00 AM EST - 01/15/2021 12:00:00 AM EDT [place] ([facility]) [id number] Clinical finding Clinical Finding Problem 12:00:00 AM EST - 01/15/2021 12:00:00 AM EDT NORM ([facility]) [id number] Left upper quadrant pain Left Upper Quadrant Pain Prob ken 10/24/2019 12:00:00 AM EST - 01/15/2021 12:00:00 AM EDT [place] ([facility]) [id number] Exacerbation of intermittent asthma Exac erbation of Intermittent Asthma Problem 10/24/2019 12:00:00 AM EST - 01/15/2021 12:00:00 AM EDT [place] ([facility]) [id number] Clinical finding Clinical Finding Problem 12:00:00 AM EST - 01/15/2021 12:00:00 AM EDT [place] ([facility]) Surgeries/Procedures Procedure Description Date Indications Data Source(s) OFFICE OUTPATIENT VISIT 15 MINUTES 07/20/2021 12:00:00 AM EST MEDENT ([facility]) Remove Impact Cerumen Irrigati 03/05/2021 12:00:00 AM EDT MEDENT ([facility], [facility]) OFFICE OUTPATIENT VISIT 15 MINUTES 03/05/2021 12:00:00 AM EDT MEDENT ([facility], [facility]) XR, kidney + ureter + bladder 10/26/2020 12:00:[address] ZHENG ([facility]) XR, kidney + ureter + bladder 10/26/2020 12:00:[address] NORM ([facility]) XR, kidney + ureter + bladder 10/26/2020 12:00:[address] NORM ([facility]) XR, kidney + ureter + bladder 10/26/2020 12:00:[address] NORM ([facility]) XR, kidney + ureter + bladder 10/26/2020 12:00:[address] NORM ([facility]) XR, kidney + ureter + bladder 10/26/2020 12:00:[address] NORM ([facility]) XR, kidney + ureter + bladder 10/26/2020 12:00:[address] NORM ([facility]) XR, kidney + ureter + bladder 10/26/2020 12:00:[address] NORM ([facility]) XR, kidney + ureter + bladder 10/26/2020 12:00:[address] NORM ([facility]) exercise stress test 10/10/2020 12:00:00 AM EST NORM ([facility]) exercise stress test 10/10/2020 12:00:00 AM EST NORM ([facility]) exercise stress test 10/10/2020 12:00:00 AM EST NORM ([facility]) exercise stress test 10/10/2020 12:00:00 AM EST NORM ([facility]) exercise stress test 10/10/2020 12:00:00 AM EST NORM ([facility]) exercise stress test 10/10/2020 12:00:00 AM EST NORM ([facility]) exercise stress test 10/10/2020 12:00:00 AM EST NORM ([facility]) exercise stress test 10/10/2020 12:00:00 AM EST NORM ([facility]) exercise stress test 10/10/2020 12:00:00 AM EST NORM ([facility]) exercise stress test 10/10/2020 12:00:00 AM EST NORM ([facility]) exercise stress test 10/10/2020 12:00:00 AM EST NORM ([facility]) Results ID Date Data Source [id number] 07/20/2021 12:00:00 AM EST [facility] Name Value Range Interpretation Code Description Data Jania rce(s) Supporting Document(s) SARS-CoV2 Rapid Antigen Positive [facility] This lab was reported by [facility]. ID Date Data Source [id number] 07/20/2021 12:00:00 AM EST [facility] Name Value Range Interpretation Code Description Data Jania rce(s) Supporting Document(s) SARS-CoV2 Rapid Antigen Positive [facility] This lab was reported by [facility]. ID Date Data Source [id number] 07/02/2021 10:29:00 AM EST [facility] Name Value Range Interpretation Code Description Data Jania rce(s) Supporting Document(s) SARS coronavirus 2 RNA [Presence] in Res piratory specimen by JAMMIE with probe detection NEGATIVE [facility] This lab was ordered by [facility] [employer] [facility] a nd reported by [employer]. ID Date Data Source [id number] 06/03/2021 09:35:00 AM EDT [facility]) Name Value Range Interpretation Code Description Data Jania rce(s) Supporting Document(s) Thyrotropin [Units/volume] in Serum or Plasma 2.95 mIU/L 0.40-4.50 Tsh [facility]) ID Date Data Source [id number] 04/02/2021 10:30:00 AM EDT [facility]) Name Value Range Interpretation Code Description Data Jania rce(s) Supporting Document(s) Bacteria identified in Throat by Culture see note Culture, Throat [facility]) ID Date Data Source [id number] 04/02/2021 10:30:00 AM EDT [facility]) Name Value Range Interpretation Code Description Data Jania rce(s) Supporting Document(s) Bacteria identified in Throat by Culture see note Culture, Throat [facility]) ID Date Data Source [id number] 04/02/2021 10:30:00 AM EDT [facility]) Name Value Range Interpretation Code Description Data Jania rce(s) Supporting Document(s) Bacteria identified in Throat by Culture see note Culture, Throat [facility]) ID Date Data Source [id number] 04/02/2021 10:07:00 AM EDT [facility]) Name Value Range Interpretation Code Description Data Jania rce(s) Supporting Document(s) sars-cov-2 negative negative Sars-cov-2 [facility]) ID Date Data Source [id number] 04/02/2021 10:07:00 AM EDT [facility]) Name Value Range Interpretation Code Description Data Jania rce(s) Supporting Document(s) sars-cov-2 negative negative Sars-cov-2 [place] ([facility]) ID Date Data Source [id number] 04/02/2021 10:07:00 AM EDT [facility]) Name Value Range Interpretation Code Description Data Jania rce(s) Supporting Document(s) sars-cov-2 negative negative Sars-cov-2 [facility]) ID Date Data Source [id number] 04/02/2021 10:07:00 AM EDT [facility]) Name Value Range Interpretation Code Description Data Jania rce(s) Supporting Document(s) sars-cov-2 negative negative Sars-cov-2 [facility]) ID Date Data Source [id number] 04/02/2021 09:00:00 AM EDT [facility] Name Value Range Interpretation Code Description Data Jania rce(s) Supporting Document(s) SARS coronavirus 2 RdRp gene [Presence] in Respiratory specimen by JAMMIE with probe detection Not detected [facility] This lab was ordered by [facility] and reported by [facility]. ID Date Data Source [id number] 03/11/2021 10:12:00 AM EDT [place] ([facility]) Name Value Range Interpretation Code Description Data Jania rce(s) Supporting Document(s) Calcidiol [Mass/volume] in Serum or Plasma 12 NG/mL 30-100 Below low normal Vitamin D,25-Oh,total,ia [place] ([facility]) ID Date Data Source [id number] 03/11/2021 10:12:00 AM EDT [place] ([facility]) Name Value Range Interpretation Code Description Data Jania rce(s) Supporting Document(s) Thyroxine (T4) free [Mass/volume] in Serum or Plasma 0.9 NG/dL 0 .8-1.8 T4, Free [place] ([facility]) Thyrotropin [Units/volume] in Serum or Plasma 4.52 mIU/L 0. 40-4.50 Above high normal Tsh [place] ([facility]) ID Date Data Source [id number] 03/11/2021 10:12:00 AM EDT [place] ([facility]) Name Value Range Interpretation Code Description Data Jania rce(s) Supporting Document(s) Calcidiol [Mass/volume] in Serum or Plasma 12 NG/mL 30-100 Below low normal Vitamin D,25-Oh,total,ia [place] ([facility]) ID Date Data Source [id number] 03/11/2021 10:12:00 AM EDT [facility]) Name Value Range Interpretation Code Description Data Jania rce(s) Supporting Document(s) Thyrotropin [Units/volume] in Serum or Plasma 4.52 mIU/L 0. 40-4.50 Above high normal Tsh [place] ([facility]) Thyroxine (T4) free [Mass/volume] in Serum or Plasma 0.9 NG/dL 0 .8-1.8 T4, Free [place] ([facility]) ID Date Data Source [id number] 01/08/2021 09:23:00 AM EDT [facility]) Name Value Range Interpretation Code Description Data Jania rce(s) Supporting Document(s) ID Date Data Source [id number] 01/08/2021 09:23:00 AM EDT [facility]) Name Value Range Interpretation Code Description Data Jania rce(s) Supporting Document(s) ID Date Data Source [id number] 01/08/2021 09:23:00 AM EDT [facility]) Name Value Range Interpretation Code Description Data Jania rce(s) Supporting Document(s) ID Date Data Source [id number] 01/08/2021 09:23:00 AM EDT [facility]) Name Value Range Interpretation Code Description Data Jania rce(s) Supporting Document(s) ID Date Data Source [id number] 01/08/2021 09:23:00 AM EDT [facility]) Name Value Range Interpretation Code Description Data Jania rce(s) Supporting Document(s) ID Date Data Source [id number] 01/08/2021 09:23:00 AM EDT [facility]) Name Value Range Interpretation Code Description Data Jania rce(s) Supporting Document(s) ID Date Data Source [id number] 01/08/2021 09:23:00 AM EDT [facility]) Name Value Range Interpretation Code Description Data Jania rce(s) Supporting Document(s) ID Date Data Source [id number] 01/08/2021 09:23:00 AM EDT [facility]) Name Value Range Interpretation Code Description Data Jania rce(s) Supporting Document(s) ID Date Data Source [id number] 01/08/2021 09:23[facility] Name Value Range Interpretation Code Description Data Jania rce(s) Supporting Document(s) ID Date Data Source [id number] 01/08/2021 09:23:00 AM [facility] Name Value Range Interpretation Code Description Data Jania rce(s) Supporting Document(s) ID Date Data Source [id number] 01/08/2021 09:23:00 AM [facility] Name Value Range Interpretation Code Description Data Jania rce(s) Supporting Document(s) ID Date Data Source [id number] 01/08/2021 09:23:00 AM [facility] Name Value Range Interpretation Code Description Data Jania rce(s) Supporting Document(s) ID Date Data Source [id number] 01/08/2021 09:23:00 AM [facility] Name Value Range Interpretation Code Description Data Jania rce(s) Supporting Document(s) ID Date Data Source [id number] 01/08/2021 09:23:00 AM EDT [facility]) Name Value Range Interpretation Code Description Data Jania rce(s) Supporting Document(s) ID Date Data Source [id number] 01/08/2021 09:23:00 AM EDT [facility]) Name Value Range Interpretation Code Description Data Jania rce(s) Supporting Document(s) ID Date Data Source [id number] 01/08/2021 09:23:00 [facility] Name Value Range Interpretation Code Description Data Jania rce(s) Supporting Document(s) ID Date Data Source [id number] 01/08/2021 09:23:00 AM [facility] Name Value Range Interpretation Code Description Data Jania rce(s) Supporting Document(s) ID Date Data Source [id number] 01/08/2021 09:23:00 AM [facility] Name Value Range Interpretation Code Description Data Jania rce(s) Supporting Document(s) ID Date Data Source [id number] 01/08/2021 09:23:00 AM [facility] Name Value Range Interpretation Code Description Data Jania rce(s) Supporting Document(s) ID Date Data Source [id number] 01/08/2021 09:23:00 AM [facility] Name Value Range Interpretation Code Description Data Jania rce(s) Supporting Document(s) ID Date Data Source [id number] 01/08/2021 09:23:00 AM [facility] Name Value Range Interpretation Code Description Data Jania rce(s) Supporting Document(s) ID Date Data Source [id number] 01/08/2021 09:23:00 AM EDT [facility]) Name Value Range Interpretation Code Description Data Jania rce(s) Supporting Document(s) ID Date Data Source [id number] 01/08/2021 09:23:00 AM EDT [facility]) Name Value Range Interpretation Code Description Data Jania rce(s) Supporting Document(s) ID Date Data Source [id number] 01/08/2021 09:23:00 AM EDT [place] ([facility]) Name Value Range Interpretation Code Description Data Jania rce(s) Supporting Document(s) ID Date Data Source [id number] 10/22/2020 10:14:00 AM EST [facility]) Name Value Range Interpretation Code Description Data Jania rce(s) Supporting Document(s) glucose, fasting 81 mg/dL 70-100 Glucose, Fasting AT [facility] ([facility]) blood urea nitrogen 12 mg/dL 7-18 Blood Urea Nitro gen [place] ([facility]) glomerular filtration rate > 60.0 >60 Glomerula r Filtration Rate [place] ([facility]) creatinine for GFR 1.10 mg/dL 0.70-1.30 Creatinine for GF R [place] ([facility]) sodium level 138 mEq/L 136-145 Sodium Level NORM (No [facility]) potassium serum 4.3 mEq/L 3.5-5.1 Potassium Serum ATH NA ([facility]) carbon dioxide level 32 mEq/L 21-32 Carbon Dioxide Level [place] ([facility]) anion gap 2 mEq/L 8-16 Below low normal Anion Gap [place] ( [facility]) chloride level 104 mEq/L 98-107 Chloride Level [facility]) calcium level 9.0 mg/dL 8.5-10.1 Calcium Level [facility]) ID Date Data Source [id number] 10/22/2020 10:14:00 AM EST [facility]) Name Value Range Interpretation Code Description Data Jania rce(s) Supporting Document(s) glucose, fasting 81 mg/dL 70-100 Glucose, Fasting AT [facility] ([facility]) blood urea nitrogen 12 mg/dL 7-18 Blood Urea Nitro gen NORM ([facility]) creatinine for GFR 1.10 mg/dL 0.70-1.30 Creatinine for GF R NORM ([facility]) glomerular filtration rate > 60.0 >60 Glomerula r Filtration Rate NORM ([facility]) sodium level 138 mEq/L 136-145 Sodium Level NORM ([facility]) potassium serum 4.3 mEq/L 3.5-5.1 Potassium Serum ATHE NA ([facility]) carbon dioxide level 32 mEq/L 21-32 Carbon Dioxide Level NORM ([facility]) chloride level 104 mEq/L 98-107 Chloride Level [place] ([facility]) anion gap 2 mEq/L 8-16 Below low normal Anion Gap [place] ( [facility]) calcium level 9.0 mg/dL 8.5-10.1 Calcium Level [place] ( [facility]) ID Date Data Source [id number] 10/22/2020 10:14:00 AM EST [facility]) Name Value Range Interpretation Code Description Data Jania rce(s) Supporting Document(s) glucose, fasting 81 mg/dL 70-100 Glucose, Fasting AT [facility] ([facility]) blood urea nitrogen 12 mg/dL 7-18 Blood Urea Nitro gen [place] ([facility]) creatinine for GFR 1.10 mg/dL 0.70-1.30 Creatinine for GF R [place] ([facility]) glomerular filtration rate > 60.0 >60 Glomerula r Filtration Rate NORM ([facility]) sodium level 138 mEq/L 136-145 Sodium Level NORM ([facility]) potassium serum 4.3 mEq/L 3.5-5.1 Potassium Serum ATHE NA ([facility]) chloride level 104 mEq/L 98-107 Chloride Level NORM ([facility]) carbon dioxide level 32 mEq/L 21-32 Carbon Dioxide Level NORM ([facility]) anion gap 2 mEq/L 8-16 Below low normal [facility] calcium level 9.0 mg/dL 8.5-10.1 Calcium Level [place] ( [facility]) ID Date Data Source [id number] 10/22/2020 10:14:00 AM EST [place] ([facility]) Name Value Range Interpretation Code Description Data Jania rce(s) Supporting Document(s) blood urea nitrogen 12 mg/dL 7-18 Blood Urea Nitro gen NORM ([facility]) glucose, fasting 81 mg/dL 70-100 Glucose, Fasting AT [facility] ([facility]) glomerular filtration rate > 60.0 >60 Glomerula r Filtration Rate [place] ([facility]) creatinine for GFR 1.10 mg/dL 0.70-1.30 Creatinine for GF R [place] ([facility]) potassium serum 4.3 mEq/L 3.5-5.1 Potassium Serum ATHE ([facility]) sodium level 138 mEq/L 136-145 Sodium Level NORM ([facility]) chloride level 104 mEq/L 98-107 Chloride Level NORM ([facility]) anion gap 2 mEq/L 8-16 Below low normal Anion Gap [place] ( [facility]) carbon dioxide level 32 mEq/L 21-32 Carbon Dioxide Level [place] ([facility]) calcium level 9.0 mg/dL 8.5-10.1 Calcium Level [facility]) ID Date Data Source [id number] 10/22/2020 10:14:00 AM EST [place] ([facility]) Name Value Range Interpretation Code Description Data Jania rce(s) Supporting Document(s) glucose, fasting 81 mg/dL 70-100 Glucose, Fasting AT [place] ([facility]) creatinine for GFR 1.10 mg/dL 0.70-1.30 Creatinine for GF R [place] ([facility]) blood urea nitrogen 12 mg/dL 7-18 Blood Urea Nitro gen NORM ([facility]) glomerular filtration rate > 60.0 >60 Glomerula r Filtration Rate NORM ([facility]) sodium level 138 mEq/L 136-145 Sodium Level NORM (No [facility]) potassium serum 4.3 mEq/L 3.5-5.1 Potassium Serum ATHE NA ([facility]) carbon dioxide level 32 mEq/L 21-32 Carbon Dioxide Level NORM ([facility]) chloride level 104 mEq/L 98-107 Chloride Level NORM ([facility]) anion gap 2 mEq/L 8-16 Below low normal Anion Gap NORM ( [facility]) calcium level 9.0 mg/dL 8.5-10.1 Calcium Level [facility] ( [facility]) ID Date Data Source [id number] 10/22/2020 10:14:00 AM EST [facility]) Name Value Range Interpretation Code Description Data Jania rce(s) Supporting Document(s) glucose, fasting 81 mg/dL 70-100 Glucose, Fasting AT [facility]) blood urea nitrogen 12 mg/dL 7-18 Blood Urea Nitro gen [place] ([facility]) creatinine for GFR 1.10 mg/dL 0.70-1.30 Creatinine for GF R NORM ([facility]) glomerular filtration rate > 60.0 >60 Glomerula r Filtration Rate NORM ([facility]) sodium level 138 mEq/L 136-145 Sodium Level NORM (No [facility]) potassium serum 4.3 mEq/L 3.5-5.1 Potassium Serum ATHE NA ([facility]) chloride level 104 mEq/L 98-107 Chloride Level NORM ([facility]) carbon dioxide level 32 mEq/L 21-32 Carbon Dioxide Level NORM ([facility]) calcium level 9.0 mg/dL 8.5-10.1 Calcium Level NORM ( [facility]) anion gap 2 mEq/L 8-16 Below low normal Anion Gap NORM ( [facility]) ID Date Data Source [id number] 10/22/2020 10:14:00 AM EST [facility]) Name Value Range Interpretation Code Description Data Jania rce(s) Supporting Document(s) glucose, fasting 81 mg/dL 70-100 Glucose, Fasting AT [facility] ([facility]) creatinine for GFR 1.10 mg/dL 0.70-1.30 Creatinine for GF R NORM ([facility]) blood urea nitrogen 12 mg/dL 7-18 Blood Urea Nitro gen NORM ([facility]) glomerular filtration rate > 60.0 >60 Glomerula r Filtration Rate NORM ([facility]) chloride level 104 mEq/L 98-107 Chloride Level NORM ([facility]) potassium serum 4.3 mEq/L 3.5-5.1 Potassium Serum ATHE NA ([facility]) sodium level 138 mEq/L 136-145 Sodium Level [place] ([facility]) carbon dioxide level 32 mEq/L 21-32 Carbon Dioxide Level [place] ([facility]) anion gap 2 mEq/L 8-16 Below low normal Anion Gap [place] ( [facility]) calcium level 9.0 mg/dL 8.5-10.1 Calcium Level [facility]) ID Date Data Source [id number] 10/22/2020 10:14:00 AM EST [facility]) Name Value Range Interpretation Code Description Data Jania rce(s) Supporting Document(s) blood urea nitrogen 12 mg/dL 7-18 Blood Urea Nitro gen NORM ([facility]) glucose, fasting 81 mg/dL 70-100 Glucose, Fasting AT [facility] ([facility]) glomerular filtration rate > 60.0 >60 Glomerula r Filtration Rate NORM ([facility]) creatinine for GFR 1.10 mg/dL 0.70-1.30 Creatinine for GF R NORM ([facility]) potassium serum 4.3 mEq/L 3.5-5.1 Potassium Serum ATHE NA ([facility]) chloride level 104 mEq/L 98-107 Chloride Level NORM ([facility]) sodium level 138 mEq/L 136-145 Sodium Level NORM ([facility]) anion gap 2 mEq/L 8-16 Below low normal Anion Gap NORM ( [facility]) carbon dioxide level 32 mEq/L 21-32 Carbon Dioxide Level NORM ([facility]) calcium level 9.0 mg/dL 8.5-10.1 Calcium Level [place] ( [facility]) ID Date Data Source [id number] 10/22/2020 10:14:00 AM EST [facility]) Name Value Range Interpretation Code Description Data Jania rce(s) Supporting Document(s) glucose, fasting 81 mg/dL 70-100 Glucose, Fasting AT [facility]) blood urea nitrogen 12 mg/dL 7-18 Blood Urea Nitro gen [place] ([facility]) glomerular filtration rate > 60.0 >60 Glomerula r Filtration Rate [place] ([facility]) sodium level 138 mEq/L 136-145 Sodium Level NORM (No [facility]) creatinine for GFR 1.10 mg/dL 0.70-1.30 Creatinine for GF R [place] ([facility]) chloride level 104 mEq/L 98-107 Chloride Level [place] ([facility]) potassium serum 4.3 mEq/L 3.5-5.1 Potassium Serum ATH NA ([facility]) anion gap 2 mEq/L 8-16 Below low normal Anion Gap [place] ( [facility]) carbon dioxide level 32 mEq/L 21-32 Carbon Dioxide Level [place] ([facility]) calcium level 9.0 mg/dL 8.5-10.1 Calcium Level [place] ( [facility]) ID Date Data Source [id number] 09/13/2020 05:35:00 PM EST NORM ([facility]) Name Value Range Interpretation Code Description Data Jania rce(s) Supporting Document(s) lipase 179 U/L 73-393 Lipase [facility]) ID Date Data Source [id number] 09/13/2020 05:35[facility] Name Value Range Interpretation Code Description Data Jania rce(s) Supporting Document(s) blood urea nitrogen 10 mg/dL 7-18 Blood Urea Nitro gen NORM ([facility]) glucose, fasting 93 mg/dL 70-100 Glucose, Fasting AT [facility] ([facility]) creatinine for GFR 1.03 mg/dL 0.70-1.30 Creatinine for GF R NORM ([facility]) sodium level 140 mEq/L 136-145 Sodium Level NORM ([facility]) potassium serum 3.3 mEq/L 3.5-5.1 Below low normal Potassium Seru m NORM ([facility]) glomerular filtration rate > 60.0 >60 Glomerula r Filtration Rate NORM ([facility]) chloride level 101 mEq/L 98-107 Chloride Level [place] ([facility]) anion gap 10 mEq/L 8-16 Anion Gap [place] ([facility]) carbon dioxide level 29 mEq/L 21-32 Carbon Dioxide Level [place] ([facility]) calcium level 9.4 mg/dL 8.5-10.1 Calcium Level [place] ( [facility]) ID Date Data Source [id number] 09/13/2020 05:35:00 PM EST [place] ([facility]) Name Value Range Interpretation Code Description Data Jania rce(s) Supporting Document(s) ALT/SGPT 29 U/L 12-78 ALT/SGPT [place] ([facility]) AST/SGOT 16 U/L 7-37 AST/SGOT [place] ([facility]) alkaline phosphatase 72 U/L 45-117 Alkaline Phosph atase NORM ([facility]) bilirubin,total 0.4 mg/dL 0.2-1.0 Bilirubin,total ATH NA ([facility]) bilirubin,direct < 0.1 0.0-0.2 Bilirubin,direct AT [facility] ([facility]) albumin/globulin ratio Albumin/globu veda Ratio NORM ([facility]) total protein 8.1 gm/dL 6.4-8.2 Total Protein NORM ( [facility]) albumin 4.7 gm/dL 3.2-5.2 Albumin [place] ([facility]) ID Date Data Source [id number] 09/13/2020 05:35:00 PM EST NORM ([facility]) Name Value Range Interpretation Code Description Data Jania rce(s) Supporting Document(s) CK-mb value mass 1.3 NG/mL <3.6 CK-mb Value Mass AT [place] ([facility]) CPK creatine phosphokinase 136 U/L 39-308 CPK Creat ine Phosphokinase NORM ([facility]) mb/CK relative index < or =4 mb/CK Relative Index NORM ([facility]) troponin I < 0.02 < 0.10 Troponin I NORM ([facility]) ID Date Data Source [id number] 09/13/2020 05:35:00 PM EST NORM ([facility]) Name Value Range Interpretation Code Description Data Jania rce(s) Supporting Document(s) D-dimer quant < 270 <500 D-dimer Quant NORM ( [facility]) ID Date Data Source [id number] 09/13/2020 05:35:00 PM EST NORM ([facility]) Name Value Range Interpretation Code Description Data Jania rce(s) Supporting Document(s) prothrombin time 13.1 seconds 12.5-14.3 Prothrombin Time NORM ([facility]) partial thromboplastin time 31.0 seconds 24.2-38.5 Partial Thromboplastin Time NORM ([facility]) INR Inr NORM ([facility]) ID Date Data Source [id number] 09/13/2020 05:35:00 PM EST NORM ([facility]) Name Value Range Interpretation Code Description Data Jania rce(s) Supporting Document(s) lipase 179 U/L 73-393 Lipase NORM ([facility]) ID Date Data Source [id number] 09/13/2020 05:35:00 PM EST NORM ([facility]) Name Value Range Interpretation Code Description Data Jania rce(s) Supporting Document(s) glucose, fasting 93 mg/dL 70-100 Glucose, Fasting AT [facility] ([facility]) blood urea nitrogen 10 mg/dL 7-18 Blood Urea Nitro gen NORM ([facility]) sodium level 140 mEq/L 136-145 Sodium Level NORM (No [facility]) glomerular filtration rate > 60.0 >60 Glomerula r Filtration Rate NORM ([facility]) creatinine for GFR 1.03 mg/dL 0.70-1.30 Creatinine for GF R [place] ([facility]) potassium serum 3.3 mEq/L 3.5-5.1 Below low normal Potassium Seru m [place] ([facility]) carbon dioxide level 29 mEq/L 21-32 Carbon Dioxide Level [place] ([facility]) chloride level 101 mEq/L 98-107 Chloride Level [place] ([facility]) anion gap 10 mEq/L 8-16 Anion Gap [place] ([facility]) calcium level 9.4 mg/dL 8.5-10.1 Calcium Level [place] ( [facility]) ID Date Data Source [id number] 09/13/2020 05:35:00 PM EST NORM ([facility]) Name Value Range Interpretation Code Description Data Jania rce(s) Supporting Document(s) AST/SGOT 16 U/L 7-37 AST/SGOT NORM ([facility]) alkaline phosphatase 72 U/L 45-117 Alkaline Phosph atase NORM ([facility]) ALT/SGPT 29 U/L 12-78 ALT/SGPT NORM ([facility]) bilirubin,total 0.4 mg/dL 0.2-1.0 Bilirubin,total ATHE NA ([facility]) total protein 8.1 gm/dL 6.4-8.2 Total Protein NORM ( [facility]) bilirubin,direct < 0.1 0.0-0.2 Bilirubin,direct AT [facility]) albumin 4.7 gm/dL 3.2-5.2 Albumin NORM ([facility]) albumin/globulin ratio Albumin/globu veda Ratio NORM ([facility]) ID Date Data Source [id number] 09/13/2020 05:35:00 PM EST N[place] ([facility]) Name Value Range Interpretation Code Description Data Jania rce(s) Supporting Document(s) CPK creatine phosphokinase 136 U/L 39-308 CPK Creat ine Phosphokinase NORM ([facility]) CK-mb value mass 1.3 NG/mL <3.6 CK-mb Value Mass AT [facility] ([facility]) mb/CK relative index < or =4 mb/CK Relative Index NORM ([facility]) troponin I < 0.02 < 0.10 Troponin I NORM ([facility]) ID Date Data Source [id number] 09/13/2020 05:35:00 PM EST N[place] ([facility]) Name Value Range Interpretation Code Description Data Jania rce(s) Supporting Document(s) D-dimer quant < 270 <500 D-dimer Quant NORM ( [facility]) ID Date Data Source [id number] 09/13/2020 05:35:00 PM EST NORM ([facility]) Name Value Range Interpretation Code Description Data Jania rce(s) Supporting Document(s) prothrombin time 13.1 seconds 12.5-14.3 Prothrombin Time NORM ([facility]) INR Inr NORM ([facility]) partial thromboplastin time 31.0 seconds 24.2-38.5 Partial Thromboplastin Time NORM ([facility]) ID Date Data Source [id number] 09/13/2020 05:35:00 PM EST NORM ([facility]) Name Value Range Interpretation Code Description Data Jania rce(s) Supporting Document(s) lipase 179 U/L 73-393 Lipase N[facility] ([facility]) ID Date Data Source [id number] 09/13/2020 05:35:00 PM EST NORM ([facility]) Name Value Range Interpretation Code Description Data Jania rce(s) Supporting Document(s) glucose, fasting 93 mg/dL 70-100 Glucose, Fasting AT [facility] ([facility]) blood urea nitrogen 10 mg/dL 7-18 Blood Urea Nitro gen NORM ([facility]) creatinine for GFR 1.03 mg/dL 0.70-1.30 Creatinine for GF R [place] ([facility]) glomerular filtration rate > 60.0 >60 Glomerula r Filtration Rate [place] ([facility]) sodium level 140 mEq/L 136-145 Sodium Level [place] ([facility]) potassium serum 3.3 mEq/L 3.5-5.1 Below low normal Potassium Seru m [place] ([facility]) chloride level 101 mEq/L 98-107 Chloride Level [place] ([facility]) anion gap 10 mEq/L 8-16 Anion Gap [place] ([facility]) carbon dioxide level 29 mEq/L 21-32 Carbon Dioxide Level [place] ([facility]) calcium level 9.4 mg/dL 8.5-10.1 Calcium Level [place] ( [facility]) ID Date Data Source [id number] 09/13/2020 05:35:00 PM EST N[facility] ([facility]) Name Value Range Interpretation Code Description Data Jania rce(s) Supporting Document(s) alkaline phosphatase 72 U/L 45-117 Alkaline Phosph atase N[facility] ([facility]) AST/SGOT 16 U/L 7-37 AST/SGOT [place] ([facility]) ALT/SGPT 29 U/L 12-78 ALT/SGPT [place] ([facility]) bilirubin,direct < 0.1 0.0-0.2 Bilirubin,direct AT [facility] ([facility]) bilirubin,total 0.4 mg/dL 0.2-1.0 Bilirubin,total ATHE NA ([facility]) total protein 8.1 gm/dL 6.4-8.2 Total Protein NORM ( [facility]) albumin 4.7 gm/dL 3.2-5.2 Albumin NORM ([facility]) albumin/globulin ratio Albumin/globu veda Ratio NORM ([facility]) ID Date Data Source [id number] 09/13/2020 05:35:00 PM EST [facility] ([facility]) Name Value Range Interpretation Code Description Data Jania rce(s) Supporting Document(s) CPK creatine phosphokinase 136 U/L 39-308 CPK Creat ine Phosphokinase NORM ([facility]) CK-mb value mass 1.3 NG/mL <3.6 CK-mb Value Mass AT [place] ([facility]) mb/CK relative index < or =4 mb/CK Relative Index NORM ([facility]) troponin I < 0.02 < 0.10 Troponin I NORM ([facility]) ID Date Data Source [id number] 09/13/2020 05:35:00 PM EST [place] ([facility]) Name Value Range Interpretation Code Description Data Jania rce(s) Supporting Document(s) D-dimer quant < 270 <500 D-dimer Quant NORM ( [facility]) ID Date Data Source [id number] 09/13/2020 05:35:00 PM EST N[place] ([facility]) Name Value Range Interpretation Code Description Data Jania rce(s) Supporting Document(s) prothrombin time 13.1 seconds 12.5-14.3 Prothrombin Time NORM ([facility]) INR Inr NORM ([facility]) partial thromboplastin time 31.0 seconds 24.2-38.5 Partial Thromboplastin Time NORM ([facility]) ID Date Data Source [id number] 09/13/2020 05:35:00 PM EST N[place] ([facility]) Name Value Range Interpretation Code Description Data Jania rce(s) Supporting Document(s) lipase 179 U/L 73-393 Lipase N[place] ([facility]) ID Date Data Source [id number] 09/13/2020 05:35:00 PM EST [place] ([facility]) Name Value Range Interpretation Code Description Data Jania rce(s) Supporting Document(s) glucose, fasting 93 mg/dL 70-100 Glucose, Fasting AT [facility]) creatinine for GFR 1.03 mg/dL 0.70-1.30 Creatinine for GF R [place] ([facility]) blood urea nitrogen 10 mg/dL 7-18 Blood Urea Nitro gen [place] ([facility]) glomerular filtration rate > 60.0 >60 Glomerula r Filtration Rate NORM ([facility]) sodium level 140 mEq/L 136-145 Sodium Level NORM ([facility]) chloride level 101 mEq/L 98-107 Chloride Level [place] ([facility]) potassium serum 3.3 mEq/L 3.5-5.1 Below low normal Potassium Seru m [place] ([facility]) anion gap 10 mEq/L 8-16 Anion Gap [place] ([facility]) calcium level 9.4 mg/dL 8.5-10.1 Calcium Level [place] ( [facility]) carbon dioxide level 29 mEq/L 21-32 Carbon Dioxide Level [place] ([facility]) ID Date Data Source [id number] 09/13/2020 05:35:00 PM EST N[place] ([facility]) Name Value Range Interpretation Code Description Data Jania rce(s) Supporting Document(s) AST/SGOT 16 U/L 7-37 AST/SGOT N[facility] ([facility]) ALT/SGPT 29 U/L 12-78 ALT/SGPT NORM ([facility]) alkaline phosphatase 72 U/L 45-117 Alkaline Phosph atase NORM ([facility]) bilirubin,total 0.4 mg/dL 0.2-1.0 Bilirubin,total ATHE NA ([facility]) bilirubin,direct < 0.1 0.0-0.2 Bilirubin,direct AT [facility] ([facility]) albumin 4.7 gm/dL 3.2-5.2 Albumin NORM ([facility]) total protein 8.1 gm/dL 6.4-8.2 Total Protein NORM ( [facility]) albumin/globulin ratio Albumin/globu veda Ratio NORM ([facility]) ID Date Data Source [id number] 09/13/2020 05:35:00 PM EST NORM ([facility]) Name Value Range Interpretation Code Description Data Jania rce(s) Supporting Document(s) CPK creatine phosphokinase 136 U/L 39-308 CPK Creat ine Phosphokinase NORM ([facility]) CK-mb value mass 1.3 NG/mL <3.6 CK-mb Value Mass AT [facility] ([facility]) mb/CK relative index < or =4 mb/CK Relative Index NORM ([facility]) troponin I < 0.02 < 0.10 Troponin I NORM ([facility]) ID Date Data Source [id number] 09/13/2020 05:35:00 PM EST NORM ([facility]) Name Value Range Interpretation Code Description Data Jania rce(s) Supporting Document(s) D-dimer quant < 270 <500 D-dimer Quant NORM ( [facility]) ID Date Data Source [id number] 09/13/2020 05:35:00 PM EST NORM ([facility]) Name Value Range Interpretation Code Description Data Jania rce(s) Supporting Document(s) prothrombin time 13.1 seconds 12.5-14.3 Prothrombin Time NORM ([facility]) partial thromboplastin time 31.0 seconds 24.2-38.5 Partial Thromboplastin Time NORM ([facility]) INR Inr NORM ([facility]) ID Date Data Source [id number] 09/13/2020 05:35:00 PM EST NORM ([facility]) Name Value Range Interpretation Code Description Data Jania rce(s) Supporting Document(s) lipase 179 U/L 73-393 Lipase NORM ([facility]) ID Date Data Source [id number] 09/13/2020 05:35:00 PM EST NORM ([facility]) Name Value Range Interpretation Code Description Data Jania rce(s) Supporting Document(s) glucose, fasting 93 mg/dL 70-100 Glucose, Fasting AT [facility]) blood urea nitrogen 10 mg/dL 7-18 Blood Urea Nitro gen [place] ([facility]) creatinine for GFR 1.03 mg/dL 0.70-1.30 Creatinine for GF R [place] ([facility]) glomerular filtration rate > 60.0 >60 Glomerula r Filtration Rate NORM ([facility]) carbon dioxide level 29 mEq/L 21-32 Carbon Dioxide Level [place] ([facility]) potassium serum 3.3 mEq/L 3.5-5.1 Below low normal Potassium Seru m [place] ([facility]) sodium level 140 mEq/L 136-145 Sodium Level NORM (No [facility]) chloride level 101 mEq/L 98-107 Chloride Level NORM ([facility]) calcium level 9.4 mg/dL 8.5-10.1 Calcium Level [place] ( [facility]) anion gap 10 mEq/L 8-16 Anion Gap NORM ([facility]) ID Date Data Source [id number] 09/13/2020 05:35:00 PM EST NORM ([facility]) Name Value Range Interpretation Code Description Data Jania rce(s) Supporting Document(s) alkaline phosphatase 72 U/L 45-117 Alkaline Phosph atase NORM ([facility]) AST/SGOT 16 U/L 7-37 AST/SGOT NORM ([facility]) ALT/SGPT 29 U/L 12-78 ALT/SGPT NORM ([facility]) bilirubin,total 0.4 mg/dL 0.2-1.0 Bilirubin,total ATHE ([facility]) bilirubin,direct < 0.1 0.0-0.2 Bilirubin,direct AT [facility] [place]) total protein 8.1 gm/dL 6.4-8.2 Total Protein NORM ( [facility] [place]) albumin/globulin ratio Albumin/globu veda Ratio NORM ([facility] [place]) albumin 4.7 gm/dL 3.2-5.2 Albumin NORM ([facility]) ID Date Data Source [id number] 09/13/2020 05:35:00 PM EST NORM ([facility] [place]) Name Value Range Interpretation Code Description Data Jania rce(s) Supporting Document(s) mb/CK relative index < or =4 mb/CK Relative Index NORM ([facility] [place]) CK-mb value mass 1.3 NG/mL <3.6 CK-mb Value Mass AT [facility] ([facility] [place]) CPK creatine phosphokinase 136 U/L 39-308 CPK Creat ine Phosphokinase NORM ([facility] [place]) troponin I < 0.02 < 0.10 Troponin I NORM ([facility] [place]) ID Date Data Source [id number] 09/13/2020 05:35:00 PM EST NORM ([facility] [place]) Name Value Range Interpretation Code Description Data Ajnia rce(s) Supporting Document(s) D-dimer quant < 270 <500 D-dimer Quant NORM ( [facility] [place]) ID Date Data Source [id number] 09/13/2020 05:[facility] Name Value Range Interpretation Code Description Data Jania rce(s) Supporting Document(s) prothrombin time 13.1 seconds 12.5-14.3 Prothrombin Time NORM ([facility] [place]) partial thromboplastin time 31.0 seconds 24.2-38.5 Partial Thromboplastin Time NORM ([facility] [place]) INR Inr NORM ([facility]) ID Date Data Source [id number] 09/13/2020 05:35:00 PM EST NORM ([facility] [place]) Name Value Range Interpretation Code Description Data Jania rce(s) Supporting Document(s) lipase 179 U/L 73-393 Lipase NORM ([facility]) ID Date Data Source [id number] 09/13/2020 05:35:00 PM EST NORM ([facility] [place]) Name Value Range Interpretation Code Description Data Jania rce(s) Supporting Document(s) glucose, fasting 93 mg/dL 70-100 Glucose, Fasting AT [facility]) blood urea nitrogen 10 mg/dL 7-18 Blood Urea Nitro gen NORM ([facility] [place]) creatinine for GFR 1.03 mg/dL 0.70-1.30 Creatinine for GF R NORM ([facility] [place]) glomerular filtration rate > 60.0 >60 Glomerula r Filtration Rate NORM ([facility] [place]) sodium level 140 mEq/L 136-145 Sodium Level NORM ([facility]) potassium serum 3.3 mEq/L 3.5-5.1 Below low normal Potassium Seru m NORM ([facility] [place]) anion gap 10 mEq/L 8-16 Anion Gap NORM ([facility]) chloride level 101 mEq/L 98-107 Chloride Level NORM ([facility] [place]) carbon dioxide level 29 mEq/L 21-32 Carbon Dioxide Level NORM ([facility] [place]) calcium level 9.4 mg/dL 8.5-10.1 Calcium Level [facility]) ID Date Data Source [id number] 09/13/2020 05:35:00 [facility] Name Value Range Interpretation Code Description Data Jania rce(s) Supporting Document(s) alkaline phosphatase 72 U/L 45-117 Alkaline Phosph atase NORM ([facility] [place]) AST/SGOT 16 U/L 7-37 AST/SGOT NORM ([facility]) ALT/SGPT 29 U/L 12-78 ALT/SGPT NORM ([facility]) bilirubin,total 0.4 mg/dL 0.2-1.0 Bilirubin,total ATHE NA ([facility] [place]) total protein 8.1 gm/dL 6.4-8.2 Total Protein NORM ( [facility] [place]) bilirubin,direct < 0.1 0.0-0.2 Bilirubin,direct AT [facility] ([facility] [place]) albumin 4.7 gm/dL 3.2-5.2 Albumin NORM ([facility]) albumin/globulin ratio Albumin/globu veda Ratio NORM ([facility] [place]) ID Date Data Source [id number] 09/13/2020 05:35:00 PM EST NORM ([facility] [place]) Name Value Range Interpretation Code Description Data Jania rce(s) Supporting Document(s) CK-mb value mass 1.3 NG/mL <3.6 CK-mb Value Mass AT [facility] ([facility] [place]) CPK creatine phosphokinase 136 U/L 39-308 CPK Creat ine Phosphokinase NORM ([facility] [place]) mb/CK relative index < or =4 mb/CK Relative Index NORM ([facility] [place]) troponin I < 0.02 < 0.10 Troponin I NORM ([facility] [place]) ID Date Data Source [id number] 09/13/2020 05:35:00 PM EST NORM ([facility] [place]) Name Value Range Interpretation Code Description Data Jania rce(s) Supporting Document(s) D-dimer quant < 270 <500 D-dimer Quant NORM ( [facility] [place]) ID Date Data Source [id number] 09/13/2020 05:35:00 PM EST NORM ([facility] [place]) Name Value Range Interpretation Code Description Data Jania rce(s) Supporting Document(s) INR Inr NORM ([facility]) prothrombin time 13.1 seconds 12.5-14.3 Prothrombin Time NORM ([facility] [place]) partial thromboplastin time 31.0 seconds 24.2-38.5 Partial Thromboplastin Time NORM ([facility] [place]) ID Date Data Source [id number] 09/13/2020 05:35:00 PM EST NORM ([facility] [place]) Name Value Range Interpretation Code Description Data Jania rce(s) Supporting Document(s) lipase 179 U/L 73-393 Lipase [place] ([facility]) ID Date Data Source [id number] 09/13/2020 05:35:00 PM EST NORM ([facility] [place]) Name Value Range Interpretation Code Description Data Jania rce(s) Supporting Document(s) glucose, fasting 93 mg/dL 70-100 Glucose, Fasting AT [facility]) blood urea nitrogen 10 mg/dL 7-18 Blood Urea Nitro gen NORM ([facility] [place]) glomerular filtration rate > 60.0 >60 Gl[place]ula r Filtration Rate [place] ([facility] [place]) creatinine for GFR 1.03 mg/dL 0.70-1.30 Creatinine for GF R [place] ([facility] [place]) chloride level 101 mEq/L 98-107 Chloride Level [place] ([facility] [place]) sodium level 140 mEq/L 136-145 Sodium Level NORM ([facility]) potassium serum 3.3 mEq/L 3.5-5.1 Below low normal Potassium Seru m NORM ([facility] [place]) carbon dioxide level 29 mEq/L 21-32 Carbon Dioxide Level [place] ([facility] [place]) anion gap 10 mEq/L 8-16 Anion Gap [place] ([facility]) calcium level 9.4 mg/dL 8.5-10.1 Calcium Level [place] ( [facility] [place]) ID Date Data Source [id number] 09/13/2020 05:35:00 PM EST NORM ([facility] [place]) Name Value Range Interpretation Code Description Data Jania rce(s) Supporting Document(s) AST/SGOT 16 U/L 7-37 AST/SGOT NORM ([facility]) ALT/SGPT 29 U/L 12-78 ALT/SGPT NORM ([facility]) alkaline phosphatase 72 U/L 45-117 Alkaline Phosph atase NORM ([facility] [place]) bilirubin,total 0.4 mg/dL 0.2-1.0 Bilirubin,total ATHE NA ([facility] [place]) total protein 8.1 gm/dL 6.4-8.2 Total Protein NORM ( [facility] [place]) bilirubin,direct < 0.1 0.0-0.2 Bilirubin,direct AT [facility] ([facility] [place]) albumin 4.7 gm/dL 3.2-5.2 Albumin NORM ([facility]) albumin/globulin ratio Albumin/globu veda Ratio NORM ([facility] [place]) ID Date Data Source [id number] 09/13/2020 05:35:00 PM EST NORM ([facility] [place]) Name Value Range Interpretation Code Description Data Jania rce(s) Supporting Document(s) CPK creatine phosphokinase 136 U/L 39-308 CPK Creat ine Phosphokinase NORM ([facility] [place]) mb/CK relative index < or =4 mb/CK Relative Index NORM ([facility] [place]) CK-mb value mass 1.3 NG/mL <3.6 CK-mb Value Mass AT [facility] ([facility] [place]) troponin I < 0.02 < 0.10 Troponin I NORM ([facility] [place]) ID Date Data Source [id number] 09/13/2020 05:35:00 PM EST NORM ([facility] [place]) Name Value Range Interpretation Code Description Data Jania rce(s) Supporting Document(s) D-dimer quant < 270 <500 D-dimer Quant NORM ( [facility] [place]) ID Date Data Source [id number] 09/13/2020 05:35:00 PM EST NORM ([facility] [place]) Name Value Range Interpretation Code Description Data Jania rce(s) Supporting Document(s) INR Inr NORM ([facility]) prothrombin time 13.1 seconds 12.5-14.3 Prothrombin Time NORM ([facility] [place]) partial thromboplastin time 31.0 seconds 24.2-38.5 Partial Thromboplastin Time NORM ([facility] [place]) ID Date Data Source [id number] 09/13/2020 05:35:00 PM EST ONRM ([facility] [place]) Name Value Range Interpretation Code Description Data Jania rce(s) Supporting Document(s) lipase 179 U/L 73-393 Lipase NROM ([facility]) ID Date Data Source [id number] 09/13/2020 05:35:00 PM EST NORM ([facility] [place]) Name Value Range Interpretation Code Description Data Jania rce(s) Supporting Document(s) blood urea nitrogen 10 mg/dL 7-18 Blood Urea Nitro gen [place] ([facility] [place]) glucose, fasting 93 mg/dL 70-100 Glucose, Fasting AT [facility] ([facility] [place]) creatinine for GFR 1.03 mg/dL 0.70-1.30 Creatinine for GF R NORM ([facility] [place]) sodium level 140 mEq/L 136-145 Sodium Level NORM ([facility]) potassium serum 3.3 mEq/L 3.5-5.1 Below low normal Potassium Seru m [place] ([facility] [place]) glomerular filtration rate > 60.0 >60 Glomerula r Filtration Rate NORM ([facility] [place]) anion gap 10 mEq/L 8-16 Anion Gap NORM ([facility]) chloride level 101 mEq/L 98-107 Chloride Level NORM ([facility] [place]) carbon dioxide level 29 mEq/L 21-32 Carbon Dioxide Level [place] ([facility] [place]) calcium level 9.4 mg/dL 8.5-10.1 Calcium Level NORM ( [facility] [place]) ID Date Data Source [id number] 09/13/2020 05:35:00 PM EST NORM ([facility] [place]) Name Value Range Interpretation Code Description Data Jania rce(s) Supporting Document(s) ALT/SGPT 29 U/L 12-78 ALT/SGPT NORM ([facility]) alkaline phosphatase 72 U/L 45-117 Alkaline Phosph atase NORM ([facility] [place]) AST/SGOT 16 U/L 7-37 AST/SGOT NORM ([facility]) bilirubin,direct < 0.1 0.0-0.2 Bilirubin,direct AT [facility] ([facility] [place]) bilirubin,total 0.4 mg/dL 0.2-1.0 Bilirubin,total ATHE ([facility] [place]) total protein 8.1 gm/dL 6.4-8.2 Total Protein NORM ( [facility] [place]) albumin/globulin ratio Albumin/globu veda Ratio NORM ([facility] [place]) albumin 4.7 gm/dL 3.2-5.2 Albumin NORM ([facility]) ID Date Data Source [id number] 09/13/2020 05:35:00 PM EST NORM ([facility] [place]) Name Value Range Interpretation Code Description Data Jania rce(s) Supporting Document(s) CPK creatine phosphokinase 136 U/L 39-308 CPK Creat ine Phosphokinase NORM ([facility] [place]) mb/CK relative index < or =4 mb/CK Relative Index NORM ([facility] [place]) CK-mb value mass 1.3 NG/mL <3.6 CK-mb Value Mass AT [facility] ([facility] [place]) troponin I < 0.02 < 0.10 Troponin I NORM ([facility] [place]) ID Date Data Source [id number] 09/13/2020 05:35:00 PM EST NORM ([facility] [place]) Name Value Range Interpretation Code Description Data Jania rce(s) Supporting Document(s) D-dimer quant < 270 <500 D-dimer Quant [place] ( [facility] [place]) ID Date Data Source [id number] 09/13/2020 05:35:00 PM EST NORM ([facility] [place]) Name Value Range Interpretation Code Description Data Jania rce(s) Supporting Document(s) prothrombin time 13.1 seconds 12.5-14.3 Prothrombin Time [place] ([facility] [place]) INR Inr [place] ([facility]) partial thromboplastin time 31.0 seconds 24.2-38.5 Partial Thromboplastin Time [place] ([facility] [place]) ID Date Data Source [id number] 09/13/2020 05:35:00 PM EST NORM ([facility] [place]) Name Value Range Interpretation Code Description Data Jania rce(s) Supporting Document(s) lipase 179 U/L 73-393 Lipase [place] ([facility]) ID Date Data Source [id number] 09/13/2020 05:35:00 PM EST [place] ([facility] [place]) Name Value Range Interpretation Code Description Data Jania rce(s) Supporting Document(s) glucose, fasting 93 mg/dL 70-100 Glucose, Fasting AT [facility] ([facility] [place]) creatinine for GFR 1.03 mg/dL 0.70-1.30 Creatinine for GF R [place] ([facility] [place]) blood urea nitrogen 10 mg/dL 7-18 Blood Urea Nitro gen [place] ([facility] [place]) glomerular filtration rate > 60.0 >60 Gl[place]ula r Filtration Rate [place] ([facility] [place]) potassium serum 3.3 mEq/L 3.5-5.1 Below low normal Potassium Seru m [place] ([facility] [place]) sodium level 140 mEq/L 136-145 Sodium Level [place] ([facility]) chloride level 101 mEq/L 98-107 Chloride Level [place] ([facility] [place]) calcium level 9.4 mg/dL 8.5-10.1 Calcium Level NORM ( [facility] [place]) carbon dioxide level 29 mEq/L 21-32 Carbon Dioxide Level NORM ([facility] [place]) anion gap 10 mEq/L 8-16 Anion Gap NORM ([facility]) ID Date Data Source [id number] 09/13/2020 05:35:00 PM EST NORM ([facility] [place]) Name Value Range Interpretation Code Description Data Jania rce(s) Supporting Document(s) AST/SGOT 16 U/L 7-37 AST/SGOT NORM ([facility]) ALT/SGPT 29 U/L 12-78 ALT/SGPT NORM ([facility]) bilirubin,total 0.4 mg/dL 0.2-1.0 Bilirubin,total ATHE ([facility] [place]) bilirubin,direct < 0.1 0.0-0.2 Bilirubin,direct AT [facility]) alkaline phosphatase 72 U/L 45-117 Alkaline Phosph atase NORM ([facility] [place]) albumin 4.7 gm/dL 3.2-5.2 Albumin NORM ([facility]) albumin/globulin ratio Albumin/globu veda Ratio NORM ([facility] [place]) total protein 8.1 gm/dL 6.4-8.2 Total Protein NORM ( [facility] [place]) ID Date Data Source [id number] 09/13/2020 05:35:00 PM EST NORM ([facility] [place]) Name Value Range Interpretation Code Description Data Jania rce(s) Supporting Document(s) CK-mb value mass 1.3 NG/mL <3.6 CK-mb Value Mass AT [facility] ([facility] [place]) mb/CK relative index < or =4 mb/CK Relative Index NORM ([facility] [place]) CPK creatine phosphokinase 136 U/L 39-308 CPK Creat ine Phosphokinase NORM ([facility] [place]) troponin I < 0.02 < 0.10 Troponin I NORM ([facility] [place]) ID Date Data Source [id number] 09/13/2020 05:35:00 PM EST NORM ([facility] [place]) Name Value Range Interpretation Code Description Data Jania rce(s) Supporting Document(s) D-dimer quant < 270 <500 D-dimer Quant NORM ( [facility] [place]) ID Date Data Source [id number] 09/13/2020 05:35:00 PM EST NORM ([facility] [place]) Name Value Range Interpretation Code Description Data Jania rce(s) Supporting Document(s) INR Inr NORM ([facility]) prothrombin time 13.1 seconds 12.5-14.3 Prothrombin Time [place] ([facility] [place]) partial thromboplastin time 31.0 seconds 24.2-38.5 Partial Thromboplastin Time [place] ([facility] [place]) ID Date Data Source [id number] 09/13/2020 05:35:00 PM EST NORM ([facility] [place]) Name Value Range Interpretation Code Description Data Jania rce(s) Supporting Document(s) lipase 179 U/L 73-393 Lipase NORM ([facility]) ID Date Data Source [id number] 09/13/2020 05:35:00 PM EST NORM ([facility] [place]) Name Value Range Interpretation Code Description Data Jania rce(s) Supporting Document(s) glucose, fasting 93 mg/dL 70-100 Glucose, Fasting AT [facility] ([facility] [place]) creatinine for GFR 1.03 mg/dL 0.70-1.30 Creatinine for GF R [place] ([facility] [place]) blood urea nitrogen 10 mg/dL 7-18 Blood Urea Nitro gen NORM ([facility] [place]) sodium level 140 mEq/L 136-145 Sodium Level NORM ([facility]) glomerular filtration rate > 60.0 >60 Glomerula r Filtration Rate [place] ([facility] [place]) potassium serum 3.3 mEq/L 3.5-5.1 Below low normal Potassium Seru m NORM ([facility] [place]) calcium level 9.4 mg/dL 8.5-10.1 Calcium Level NORM ( [facility] [place]) carbon dioxide level 29 mEq/L 21-32 Carbon Dioxide Level NORM ([facility] [place]) anion gap 10 mEq/L 8-16 Anion Gap NORM ([facility]) chloride level 101 mEq/L 98-107 Chloride Level NORM ([facility] [place]) ID Date Data Source [id number] 09/13/2020 05:35:00 PM EST NORM ([facility] [place]) Name Value Range Interpretation Code Description Data Jania rce(s) Supporting Document(s) AST/SGOT 16 U/L 7-37 AST/SGOT NORM ([facility]) ALT/SGPT 29 U/L 12-78 ALT/SGPT NORM ([facility]) total protein 8.1 gm/dL 6.4-8.2 Total Protein NORM ( [facility] [place]) bilirubin,direct < 0.1 0.0-0.2 Bilirubin,direct AT [place] ([facility] [place]) bilirubin,total 0.4 mg/dL 0.2-1.0 Bilirubin,total ATHE NA ([facility] [place]) alkaline phosphatase 72 U/L 45-117 Alkaline Phosph atase NORM ([facility] [place]) albumin/globulin ratio Albumin/globu veda Ratio NORM ([facility] [place]) albumin 4.7 gm/dL 3.2-5.2 Albumin NORM ([facility]) ID Date Data Source [id number] 09/13/2020 05:35:00 PM EST NORM ([facility] [place]) Name Value Range Interpretation Code Description Data Jania rce(s) Supporting Document(s) CPK creatine phosphokinase 136 U/L 39-308 CPK Creat ine Phosphokinase NORM ([facility] [place]) mb/CK relative index < or =4 mb/CK Relative Index NORM ([facility] [place]) troponin I < 0.02 < 0.10 Troponin I NORM ([facility] [place]) CK-mb value mass 1.3 NG/mL <3.6 CK-mb Value Mass AT [facility]) ID Date Data Source [id number] 09/13/2020 05:35:00 PM EST NORM ([facility] [place]) Name Value Range Interpretation Code Description Data Jania rce(s) Supporting Document(s) D-dimer quant < 270 <500 D-dimer Quant [place] ( [facility] [place]) ID Date Data Source [id number] 09/13/2020 05:35:00 PM EST NORM ([facility] [place]) Name Value Range Interpretation Code Description Data Jania rce(s) Supporting Document(s) prothrombin time 13.1 seconds 12.5-14.3 Prothrombin Time [place] ([facility] [place]) INR Inr [place] ([facility]) partial thromboplastin time 31.0 seconds 24.2-38.5 Partial Thromboplastin Time [place] ([facility] [place]) ID Date Data Source [id number] 09/13/2020 05:35:00 PM EST NORM ([facility] [place]) Name Value Range Interpretation Code Description Data Jania rce(s) Supporting Document(s) lipase 179 U/L 73-393 Lipase NORM ([facility]) ID Date Data Source [id number] 09/13/2020 05:35:00 PM EST NORM ([facility] [place]) Name Value Range Interpretation Code Description Data Jania rce(s) Supporting Document(s) blood urea nitrogen 10 mg/dL 7-18 Blood Urea Nitro gen [place] ([facility] [place]) glucose, fasting 93 mg/dL 70-100 Glucose, Fasting AT [facility] ([facility] [place]) creatinine for GFR 1.03 mg/dL 0.70-1.30 Creatinine for GF R [place] ([facility] [place]) sodium level 140 mEq/L 136-145 Sodium Level NORM ([facility]) potassium serum 3.3 mEq/L 3.5-5.1 Below low normal Potassium Seru m NORM ([facility] [place]) glomerular filtration rate > 60.0 >60 Glomerula r Filtration Rate NORM ([facility] [place]) chloride level 101 mEq/L 98-107 Chloride Level NORM ([facility] [place]) carbon dioxide level 29 mEq/L 21-32 Carbon Dioxide Level NORM ([facility] [place]) calcium level 9.4 mg/dL 8.5-10.1 Calcium Level NORM ( [facility] [place]) anion gap 10 mEq/L 8-16 Anion Gap NORM ([facility]) ID Date Data Source [id number] 09/13/2020 05:35:00 PM EST NORM ([facility] [place]) Name Value Range Interpretation Code Description Data Jania rce(s) Supporting Document(s) ALT/SGPT 29 U/L 12-78 ALT/SGPT NORM ([facility]) AST/SGOT 16 U/L 7-37 AST/SGOT NORM ([facility]) bilirubin,total 0.4 mg/dL 0.2-1.0 Bilirubin,total ATHE ([facility] [place]) total protein 8.1 gm/dL 6.4-8.2 Total Protein NORM ( [facility] [place]) bilirubin,direct < 0.1 0.0-0.2 Bilirubin,direct AT [facility]) alkaline phosphatase 72 U/L 45-117 Alkaline Phosph atase NORM ([facility] [place]) albumin/globulin ratio Albumin/globu veda Ratio NORM ([facility] [place]) albumin 4.7 gm/dL 3.2-5.2 Albumin NORM ([facility]) ID Date Data Source [id number] 09/13/2020 05:35:00 PM EST NORM ([facility] [place]) Name Value Range Interpretation Code Description Data Jania rce(s) Supporting Document(s) CPK creatine phosphokinase 136 U/L 39-308 CPK Creat ine Phosphokinase NORM ([facility] [place]) mb/CK relative index < or =4 mb/CK Relative Index NORM ([facility] [place]) CK-mb value mass 1.3 NG/mL <3.6 CK-mb Value Mass AT [facility] ([facility] [place]) troponin I < 0.02 < 0.10 Troponin I NORM ([facility] [place]) ID Date Data Source [id number] 09/13/2020 05:35:00 PM EST NORM ([facility] [place]) Name Value Range Interpretation Code Description Data Jania rce(s) Supporting Document(s) D-dimer quant < 270 <500 D-dimer Quant NORM ( [facility] [place]) ID Date Data Source [id number] 09/13/2020 05:35:00 PM EST NORM ([facility] [place]) Name Value Range Interpretation Code Description Data Jania rce(s) Supporting Document(s) prothrombin time 13.1 seconds 12.5-14.3 Prothrombin Time NORM ([facility]) INR Inr [place] ([facility]) partial thromboplastin time 31.0 seconds 24.2-38.5 Partial Thromboplastin Time NORM ([facility]) ID Date Data Source [id number] 09/13/2020 04:55:00 PM EST NORM ([facility]) Name Value Range Interpretation Code Description Data Jania rce(s) Supporting Document(s) istat troponin 0.00 NG/mL 0.00-0.08 Istat Troponin NORM ([facility]) ID Date Data Source [id number] 09/13/2020 04:55:00 PM EST NORM ([facility]) Name Value Range Interpretation Code Description Data Jania rce(s) Supporting Document(s) istat troponin 0.00 NG/mL 0.00-0.08 Istat Troponin NORM ([facility]) ID Date Data Source [id number] 09/13/2020 04:55:00 PM EST NORM ([facility]) Name Value Range Interpretation Code Description Data Jania rce(s) Supporting Document(s) istat troponin 0.00 NG/mL 0.00-0.08 Istat Troponin NORM ([facility]) ID Date Data Source [id number] 09/13/2020 04:55:00 PM EST NORM ([facility]) Name Value Range Interpretation Code Description Data Jania rce(s) Supporting Document(s) istat troponin 0.00 NG/mL 0.00-0.08 Istat Troponin NORM ([facility]) ID Date Data Source [id number] 09/13/2020 04:55:00 PM EST NORM ([facility]) Name Value Range Interpretation Code Description Data Jania rce(s) Supporting Document(s) istat troponin 0.00 NG/mL 0.00-0.08 Istat Troponin NORM ([facility]) ID Date Data Source [id number] 09/13/2020 04:55:00 PM EST NORM ([facility]) Name Value Range Interpretation Code Description Data Jania rce(s) Supporting Document(s) istat troponin 0.00 NG/mL 0.00-0.08 Istat Troponin NORM ([facility]) ID Date Data Source [id number] 09/13/2020 04:55:00 PM EST NORM ([facility]) Name Value Range Interpretation Code Description Data Jania rce(s) Supporting Document(s) istat troponin 0.00 NG/mL 0.00-0.08 Istat Troponin NORM ([facility]) ID Date Data Source [id number] 09/13/2020 04:55:00 PM EST NORM ([facility]) Name Value Range Interpretation Code Description Data Jania rce(s) Supporting Document(s) istat troponin 0.00 NG/mL 0.00-0.08 Istat Troponin NORM ([facility]) ID Date Data Source [id number] 09/13/2020 04:55:00 PM EST NORM ([facility]) Name Value Range Interpretation Code Description Data Jania rce(s) Supporting Document(s) istat troponin 0.00 NG/mL 0.00-0.08 Istat Troponin NORM ([facility]) ID Date Data Source [id number] 09/13/2020 04:55:00 PM EST NORM ([facility]) Name Value Range Interpretation Code Description Data Jania rce(s) Supporting Document(s) istat troponin 0.00 NG/mL 0.00-0.08 Istat Troponin NORM ([facility]) ID Date Data Source [id number] 09/13/2020 04:55:00 PM EST NORM ([facility]) Name Value Range Interpretation Code Description Data Jania rce(s) Supporting Document(s) istat troponin 0.00 NG/mL 0.00-0.08 Istat Troponin NORM ([facility]) ID Date Data Source [id number] 09/13/2020 04:54:00 PM EST NORM ([facility]) Name Value Range Interpretation Code Description Data Jania rce(s) Supporting Document(s) istat glucose 93 mg/dL 70-105 Istat Glucose NORM ( [facility]) istat HCT 49.0 % 38.0-51.0 Istat HCT NORM ([facility]) istat sodium 139 mEq/L 136-145 Istat Sodium NORM (No [facility]) istat potassium 3.1 mEq/L 3.5-5.1 Below low normal Istat [place] m NORM ([facility]) istat chloride 101 mEq/L 98-109 Istat Chloride NORM ([facility]) istat Ca++ 4.5 mg/dL 4.5-5.3 Istat Ca++ NORM ([facility]) istat CO2 28.0 mm/L 23.0-27.0 Above high normal Istat CO2 NORM ([facility]) istat BUN 10 mg/dL 8-26 Istat BUN NORM ([facility]) istat creatinine 0.9 mg/dL 0.6-1.3 Istat Creatinine AT [facility]) ID Date Data Source [id number] 09/13/2020 04:54:00 PM EST [place] ([facility]) Name Value Range Interpretation Code Description Data Jania rce(s) Supporting Document(s) istat HCT 49.0 % 38.0-51.0 Istat HCT NORM ([facility]) istat glucose 93 mg/dL 70-105 Istat Glucose [place] ( [facility]) istat sodium 139 mEq/L 136-145 Istat Sodium NORM ([facility]) istat potassium 3.1 mEq/L 3.5-5.1 Below low normal Istat [place] m NORM ([facility]) istat Ca++ 4.5 mg/dL 4.5-5.3 Istat Ca++ NORM ([facility]) istat chloride 101 mEq/L 98-109 Istat Chloride NORM ([facility]) istat CO2 28.0 mm/L 23.0-27.0 Above high normal Istat CO2 [place] ([facility]) istat BUN 10 mg/dL 8-26 Istat BUN [place] ([facility]) istat creatinine 0.9 mg/dL 0.6-1.3 Istat Creatinine AT [facility]) ID Date Data Source [id number] 09/13/2020 04:54:00 PM EST NORM ([facility]) Name Value Range Interpretation Code Description Data Jania rce(s) Supporting Document(s) istat HCT 49.0 % 38.0-51.0 Istat HCT NORM ([facility]) istat glucose 93 mg/dL 70-105 Istat Glucose NORM ( [facility]) istat sodium 139 mEq/L 136-145 Istat Sodium NORM (No [facility]) istat potassium 3.1 mEq/L 3.5-5.1 Below low normal Istat [place] m [place] ([facility]) istat Ca++ 4.5 mg/dL 4.5-5.3 Istat Ca++ [place] ([facility]) istat CO2 28.0 mm/L 23.0-27.0 Above high normal Istat CO2 [place] ([facility]) istat chloride 101 mEq/L 98-109 Istat Chloride [place] ([facility]) istat creatinine 0.9 mg/dL 0.6-1.3 Istat Creatinine AT [facility]) istat BUN 10 mg/dL 8-26 Istat BUN [place] ([facility]) ID Date Data Source [id number] 09/13/2020 04:54:00 PM EST NORM ([facility]) Name Value Range Interpretation Code Description Data Jania rce(s) Supporting Document(s) istat HCT 49.0 % 38.0-51.0 Istat HCT NORM ([facility]) istat glucose 93 mg/dL 70-105 Istat Glucose NORM ( [facility]) istat potassium 3.1 mEq/L 3.5-5.1 Below low normal Istat [place] m NORM ([facility]) istat sodium 139 mEq/L 136-145 Istat Sodium NORM (No [facility]) istat Ca++ 4.5 mg/dL 4.5-5.3 Istat Ca++ NORM ([facility]) istat chloride 101 mEq/L 98-109 Istat Chloride NORM ([facility]) istat CO2 28.0 mm/L 23.0-27.0 Above high normal Istat CO2 NORM ([facility]) istat BUN 10 mg/dL 8-26 Istat BUN NORM ([facility]) istat creatinine 0.9 mg/dL 0.6-1.3 Istat Creatinine AT [facility]) ID Date Data Source [id number] 09/13/2020 04:54:00 PM EST [place] ([facility]) Name Value Range Interpretation Code Description Data Jania rce(s) Supporting Document(s) istat HCT 49.0 % 38.0-51.0 Istat HCT NORM ([facility]) istat sodium 139 mEq/L 136-145 Istat Sodium NORM ([facility]) istat glucose 93 mg/dL 70-105 Istat Glucose NORM ( [facility]) istat Ca++ 4.5 mg/dL 4.5-5.3 Istat Ca++ [place] ([facility]) istat chloride 101 mEq/L 98-109 Istat Chloride NORM ([facility]) istat potassium 3.1 mEq/L 3.5-5.1 Below low normal Istat [place] NORM ([facility]) istat BUN 10 mg/dL 8-26 Istat BUN NORM ([facility]) istat CO2 28.0 mm/L 23.0-27.0 Above high normal Istat CO2 NORM ([facility]) istat creatinine 0.9 mg/dL 0.6-1.3 Istat Creatinine AT [facility]) ID Date Data Source [id number] 09/13/2020 04:54:00 PM EST NORM ([facility]) Name Value Range Interpretation Code Description Data Jania rce(s) Supporting Document(s) istat HCT 49.0 % 38.0-51.0 Istat HCT NORM ([facility]) istat glucose 93 mg/dL 70-105 Istat Glucose NORM ( [facility]) istat sodium 139 mEq/L 136-145 Istat Sodium NORM (No [facility]) istat potassium 3.1 mEq/L 3.5-5.1 Below low normal Istat [place] m [place] ([facility]) istat chloride 101 mEq/L 98-109 Istat Chloride NROM ([facility]) istat CO2 28.0 mm/L 23.0-27.0 Above high normal Istat CO2 [place] ([facility]) istat Ca++ 4.5 mg/dL 4.5-5.3 Istat Ca++ [place] ([facility]) istat BUN 10 mg/dL 8-26 Istat BUN [place] ([facility]) istat creatinine 0.9 mg/dL 0.6-1.3 Istat Creatinine AT [facility] ([facility]) ID Date Data Source [id number] 09/13/2020 04:54:00 PM EST NORM ([facility]) Name Value Range Interpretation Code Description Data Jania rce(s) Supporting Document(s) istat HCT 49.0 % 38.0-51.0 Istat HCT NORM ([facility]) istat glucose 93 mg/dL 70-105 Istat Glucose NORM ( [facility]) istat potassium 3.1 mEq/L 3.5-5.1 Below low normal Istat [place] m NORM ([facility]) istat sodium 139 mEq/L 136-145 Istat Sodium NORM (No [facility]) istat chloride 101 mEq/L 98-109 Istat Chloride NORM ([facility]) istat Ca++ 4.5 mg/dL 4.5-5.3 Istat Ca++ NORM ([facility]) istat CO2 28.0 mm/L 23.0-27.0 Above high normal Istat CO2 NORM ([facility]) istat BUN 10 mg/dL 8-26 Istat BUN NORM ([facility]) istat creatinine 0.9 mg/dL 0.6-1.3 Istat Creatinine AT [facility]) ID Date Data Source [id number] 09/13/2020 04:54:00 PM EST [place] ([facility]) Name Value Range Interpretation Code Description Data Jania rce(s) Supporting Document(s) istat HCT 49.0 % 38.0-51.0 Istat HCT NORM ([facility]) istat glucose 93 mg/dL 70-105 Istat Glucose NORM ( [facility]) istat sodium 139 mEq/L 136-145 Istat Sodium NORM ([facility]) istat chloride 101 mEq/L 98-109 Istat Chloride NORM ([facility]) istat potassium 3.1 mEq/L 3.5-5.1 Below low normal Istat [place] m NORM ([facility]) istat Ca++ 4.5 mg/dL 4.5-5.3 Istat Ca++ NORM ([facility]) istat CO2 28.0 mm/L 23.0-27.0 Above high normal Istat CO2 NORM ([facility]) istat BUN 10 mg/dL 8-26 Istat BUN NORM ([facility]) istat creatinine 0.9 mg/dL 0.6-1.3 Istat Creatinine AT [facility]) ID Date Data Source [id number] 09/13/2020 04:54:00 PM EST NORM ([facility]) Name Value Range Interpretation Code Description Data Jania rce(s) Supporting Document(s) istat HCT 49.0 % 38.0-51.0 Istat HCT NORM ([facility]) istat glucose 93 mg/dL 70-105 Istat Glucose NORM ( [facility]) istat Ca++ 4.5 mg/dL 4.5-5.3 Istat Ca++ NORM ([facility]) istat potassium 3.1 mEq/L 3.5-5.1 Below low normal Istat [place] m NORM ([facility]) istat sodium 139 mEq/L 136-145 Istat Sodium NORM ([facility]) istat CO2 28.0 mm/L 23.0-27.0 Above high normal Istat CO2 NORM ([facility]) istat chloride 101 mEq/L 98-109 Istat Chloride NORM ([facility]) istat creatinine 0.9 mg/dL 0.6-1.3 Istat Creatinine AT [facility]) istat BUN 10 mg/dL 8-26 Istat BUN [place] ([facility]) ID Date Data Source [id number] 09/13/2020 04:54:00 PM EST NORM ([facility]) Name Value Range Interpretation Code Description Data Jania rce(s) Supporting Document(s) istat HCT 49.0 % 38.0-51.0 Istat HCT NORM ([facility]) istat glucose 93 mg/dL 70-105 Istat Glucose NORM ( [facility]) istat potassium 3.1 mEq/L 3.5-5.1 Below low normal Istat [place] m NORM ([facility]) istat Ca++ 4.5 mg/dL 4.5-5.3 Istat Ca++ NORM ([facility]) istat sodium 139 mEq/L 136-145 Istat Sodium NORM (No [facility]) istat CO2 28.0 mm/L 23.0-27.0 Above high normal Istat CO2 NORM ([facility]) istat BUN 10 mg/dL 8-26 Istat BUN NORM ([facility]) istat chloride 101 mEq/L 98-109 Istat Chloride NORM ([facility]) istat creatinine 0.9 mg/dL 0.6-1.3 Istat Creatinine AT [facility]) ID Date Data Source [id number] 09/13/2020 04:54:00 PM EST [place] ([facility]) Name Value Range Interpretation Code Description Data Jania rce(s) Supporting Document(s) istat HCT 49.0 % 38.0-51.0 Istat HCT NORM ([facility]) istat glucose 93 mg/dL 70-105 Istat Glucose NORM ( [facility]) istat Ca++ 4.5 mg/dL 4.5-5.3 Istat Ca++ [place] ([facility]) istat potassium 3.1 mEq/L 3.5-5.1 Below low normal Istat Shikha m [place] ([facility]) istat sodium 139 mEq/L 136-145 Istat Sodium NORM ([facility]) istat BUN 10 mg/dL 8-26 Istat BUN NORM ([facility]) istat CO2 28.0 mm/L 23.0-27.0 Above high normal Istat CO2 NORM ([facility]) istat chloride 101 mEq/L 98-109 Istat Chloride NORM ([facility]) istat creatinine 0.9 mg/dL 0.6-1.3 Istat Creatinine AT [facility]) ID Date Data Source [id number] 09/13/2020 04:51:00 PM EST NORM ([facility]) Name Value Range Interpretation Code Description Data Jania rce(s) Supporting Document(s) white blood count 7.6 10 4.0-10.0 White Blood Count NORM ([facility]) red blood count 5.44 10 4.30-6.10 Red Blood Count ATHE NA ([facility]) hematocrit 47.7 % 42.0-52.0 Hematocrit NORM ([facility]) hemoglobin 15.8 g/dL 13.5-17.5 Hemoglobin NORM ([facility]) mean corpuscular volume 87.7 fL 80.0-96.0 Mean Corpusc ular Volume NORM ([facility]) mean corpuscular hemoglobin 29.0 pg 27.0-33.0 Mean Cor puscular Hemoglobin NORM ([facility]) mean corpuscular HGB conc 33.1 g/dL 32.0-36.5 Mean Corpu scular HGB Conc NORM ([facility]) platelet count, automated 284 10 150-450 Platelet C ount, Automated NORM ([facility]) red cell distribution width 11.9 % 11.5-14.5 Red Cell Distribution Width NORM ([facility]) nucleated red blood cell % 0.0 % 0-0 Nucleated Red Blood Cell % NORM ([facility]) ID Date Data Source [id number] 09/13/2020 04:51:00 PM EST NORM ([facility]) Name Value Range Interpretation Code Description Data Jania rce(s) Supporting Document(s) white blood count 7.6 10 4.0-10.0 White Blood Count NORM ([facility]) red blood count 5.44 10 4.30-6.10 Red Blood Count ATHE NA ([facility]) hematocrit 47.7 % 42.0-52.0 Hematocrit NORM ([facility]) hemoglobin 15.8 g/dL 13.5-17.5 Hemoglobin NORM ([facility]) mean corpuscular volume 87.7 fL 80.0-96.0 Mean Corpusc ular Volume NORM ([facility]) mean corpuscular hemoglobin 29.0 pg 27.0-33.0 Mean Cor puscular Hemoglobin NORM ([facility]) mean corpuscular HGB conc 33.1 g/dL 32.0-36.5 Mean Corpu scular HGB Conc NORM ([facility]) red cell distribution width 11.9 % 11.5-14.5 Red Cell Distribution Width NORM ([facility]) platelet count, automated 284 10 150-450 Platelet C ount, Automated NORM ([facility]) nucleated red blood cell % 0.0 % 0-0 Nucleated Red Blood Cell % NORM ([facility]) ID Date Data Source [id number] 09/13/2020 04:51:00 PM EST NORM ([facility]) Name Value Range Interpretation Code Description Data Jania rce(s) Supporting Document(s) white blood count 7.6 10 4.0-10.0 White Blood Count NORM ([facility]) red blood count 5.44 10 4.30-6.10 Red Blood Count ATHE NA ([facility]) hematocrit 47.7 % 42.0-52.0 Hematocrit NORM ([facility]) hemoglobin 15.8 g/dL 13.5-17.5 Hemoglobin NORM ([facility]) mean corpuscular volume 87.7 fL 80.0-96.0 Mean Corpusc ular Volume NORM ([facility]) mean corpuscular hemoglobin 29.0 pg 27.0-33.0 Mean Cor puscular Hemoglobin NORM ([facility]) red cell distribution width 11.9 % 11.5-14.5 Red Cell Distribution Width NORM ([facility]) mean corpuscular HGB conc 33.1 g/dL 32.0-36.5 Mean Corpu scular HGB Conc NORM ([facility]) nucleated red blood cell % 0.0 % 0-0 Nucleated Red Blood Cell % NORM ([facility]) platelet count, automated 284 10 150-450 Platelet C ount, Automated NORM ([facility]) ID Date Data Source [id number] 09/13/2020 04:51:00 PM EST NORM ([facility]) Name Value Range Interpretation Code Description Data Jania rce(s) Supporting Document(s) white blood count 7.6 10 4.0-10.0 White Blood Count NORM ([facility]) hematocrit 47.7 % 42.0-52.0 Hematocrit NORM ([facility]) hemoglobin 15.8 g/dL 13.5-17.5 Hemoglobin NORM ([facility]) red blood count 5.44 10 4.30-6.10 Red Blood Count ATHE NA ([facility]) mean corpuscular volume 87.7 fL 80.0-96.0 Mean Corpusc ular Volume NORM ([facility]) mean corpuscular hemoglobin 29.0 pg 27.0-33.0 Mean Cor puscular Hemoglobin NORM ([facility]) platelet count, automated 284 10 150-450 Platelet C ount, Automated NORM ([facility]) mean corpuscular HGB conc 33.1 g/dL 32.0-36.5 Mean Corpu scular HGB Conc NORM ([facility]) red cell distribution width 11.9 % 11.5-14.5 Red Cell Distribution Width NORM ([facility]) nucleated red blood cell % 0.0 % 0-0 Nucleated Red Blood Cell % NORM ([facility]) ID Date Data Source [id number] 09/13/2020 04:51:00 PM EST NORM ([facility]) Name Value Range Interpretation Code Description Data Jania rce(s) Supporting Document(s) white blood count 7.6 10 4.0-10.0 White Blood Count NORM ([facility]) red blood count 5.44 10 4.30-6.10 Red Blood Count ATHE NA ([facility]) hemoglobin 15.8 g/dL 13.5-17.5 Hemoglobin NORM ([facility]) mean corpuscular hemoglobin 29.0 pg 27.0-33.0 Mean Cor puscular Hemoglobin NORM ([facility]) mean corpuscular volume 87.7 fL 80.0-96.0 Mean Corpusc ular Volume NORM ([facility]) hematocrit 47.7 % 42.0-52.0 Hematocrit NORM ([facility]) mean corpuscular HGB conc 33.1 g/dL 32.0-36.5 Mean Corpu scular HGB Conc NORM ([facility]) red cell distribution width 11.9 % 11.5-14.5 Red Cell Distribution Width NORM ([facility]) platelet count, automated 284 10 150-450 Platelet C ount, Automated NORM ([facility]) nucleated red blood cell % 0.0 % 0-0 Nucleated Red Blood Cell % [place] ([facility]) ID Date Data Source [id number] 09/13/2020 04:51:00 PM EST NORM ([facility]) Name Value Range Interpretation Code Description Data Jania rce(s) Supporting Document(s) white blood count 7.6 10 4.0-10.0 White Blood Count NORM ([facility]) red blood count 5.44 10 4.30-6.10 Red Blood Count ATHE NA ([facility]) hematocrit 47.7 % 42.0-52.0 Hematocrit NORM ([facility]) mean corpuscular volume 87.7 fL 80.0-96.0 Mean Corpusc ular Volume NORM ([facility]) hemoglobin 15.8 g/dL 13.5-17.5 Hemoglobin NORM ([facility]) red cell distribution width 11.9 % 11.5-14.5 Red Cell Distribution Width NORM ([facility]) mean corpuscular hemoglobin 29.0 pg 27.0-33.0 Mean Cor puscular Hemoglobin NORM ([facility]) mean corpuscular HGB conc 33.1 g/dL 32.0-36.5 Mean Corpu scular HGB Conc NORM ([facility]) nucleated red blood cell % 0.0 % 0-0 Nucleated Red Blood Cell % NORM ([facility]) platelet count, automated 284 10 150-450 Platelet C ount, Automated NORM ([facility]) ID Date Data Source [id number] 09/13/2020 04:51:00 PM EST NORM ([facility]) Name Value Range Interpretation Code Description Data Jania rce(s) Supporting Document(s) white blood count 7.6 10 4.0-10.0 White Blood Count NORM ([facility]) hemoglobin 15.8 g/dL 13.5-17.5 Hemoglobin NORM ([facility]) red blood count 5.44 10 4.30-6.10 Red Blood Count ATHE NA ([facility]) mean corpuscular volume 87.7 fL 80.0-96.0 Mean Corpusc ular Volume NORM ([facility]) mean corpuscular hemoglobin 29.0 pg 27.0-33.0 Mean Cor puscular Hemoglobin NORM ([facility]) hematocrit 47.7 % 42.0-52.0 Hematocrit NORM ([facility]) red cell distribution width 11.9 % 11.5-14.5 Red Cell Distribution Width NORM ([facility]) mean corpuscular HGB conc 33.1 g/dL 32.0-36.5 Mean Corpu scular HGB Conc NORM ([facility]) nucleated red blood cell % 0.0 % 0-0 Nucleated Red Blood Cell % NORM ([facility]) platelet count, automated 284 10 150-450 Platelet C ount, Automated NORM ([facility]) ID Date Data Source [id number] 09/13/2020 04:51:00 PM EST NORM ([facility]) Name Value Range Interpretation Code Description Data Jania rce(s) Supporting Document(s) white blood count 7.6 10 4.0-10.0 White Blood Count NORM ([facility]) red blood count 5.44 10 4.30-6.10 Red Blood Count ATHE NA ([facility] [place]) mean corpuscular volume 87.7 fL 80.0-96.0 Mean Corpusc ular Volume NORM ([facility] [place]) hematocrit 47.7 % 42.0-52.0 Hematocrit NORM ([facility] [place]) hemoglobin 15.8 g/dL 13.5-17.5 Hemoglobin NORM ([facility] [place]) mean corpuscular hemoglobin 29.0 pg 27.0-33.0 Mean Cor puscular Hemoglobin NORM ([facility] [place]) red cell distribution width 11.9 % 11.5-14.5 Red Cell Distribution Width NORM ([facility] [place]) mean corpuscular HGB conc 33.1 g/dL 32.0-36.5 Mean Corpu scular HGB Conc NORM ([facility] [place]) platelet count, automated 284 10 150-450 Platelet C ount, Automated NORM ([facility] [place]) nucleated red blood cell % 0.0 % 0-0 Nucleated Red Blood Cell % NORM ([facility] [place]) ID Date Data Source [id number] 09/13/2020 04:51:00 PM EST NORM ([facility] [place]) Name Value Range Interpretation Code Description Data Jania rce(s) Supporting Document(s) white blood count 7.6 10 4.0-10.0 White Blood Count NORM ([facility] [place]) hematocrit 47.7 % 42.0-52.0 Hematocrit NORM ([facility] [place]) red blood count 5.44 10 4.30-6.10 Red Blood Count ATHE NA ([facility] [place]) hemoglobin 15.8 g/dL 13.5-17.5 Hemoglobin NORM ([facility] [place]) mean corpuscular volume 87.7 fL 80.0-96.0 Mean Corpusc ular Volume NORM ([facility] [place]) mean corpuscular hemoglobin 29.0 pg 27.0-33.0 Mean Cor puscular Hemoglobin NORM ([facility] [place]) red cell distribution width 11.9 % 11.5-14.5 Red Cell Distribution Width NORM ([facility] [place]) mean corpuscular HGB conc 33.1 g/dL 32.0-36.5 Mean Corpu scular HGB Conc NORM ([facility] [place]) platelet count, automated 284 10 150-450 Platelet C ount, Automated NORM ([facility] [place]) nucleated red blood cell % 0.0 % 0-0 Nucleated Red Blood Cell % NORM ([facility] [place]) ID Date Data Source [id number] 09/13/2020 04:51:00 PM EST NORM ([facility] [place]) Name Value Range Interpretation Code Description Data Jania rce(s) Supporting Document(s) white blood count 7.6 10 4.0-10.0 White Blood Count NORM ([facility] [place]) red blood count 5.44 10 4.30-6.10 Red Blood Count ATHE NA ([facility] [place]) hemoglobin 15.8 g/dL 13.5-17.5 Hemoglobin NORM ([facility] [place]) mean corpuscular volume 87.7 fL 80.0-96.0 Mean Corpusc ular Volume NORM ([facility] [place]) mean corpuscular hemoglobin 29.0 pg 27.0-33.0 Mean Cor puscular Hemoglobin NORM ([facility] [place]) hematocrit 47.7 % 42.0-52.0 Hematocrit NORM ([facility] [place]) mean corpuscular HGB conc 33.1 g/dL 32.0-36.5 Mean Corpu scular HGB Conc [place] ([facility] [place]) platelet count, automated 284 10 150-450 Platelet C ount, Automated NORM ([facility] [place]) red cell distribution width 11.9 % 11.5-14.5 Red Cell Distribution Width NORM ([facility] [place]) nucleated red blood cell % 0.0 % 0-0 Nucleated Red Blood Cell % NORM ([facility] [place]) ID Date Data Source [id number] 09/13/2020 04:51:00 PM EST NORM ([facility] [place]) Name Value Range Interpretation Code Description Data Jania rce(s) Supporting Document(s) red blood count 5.44 10 4.30-6.10 Red Blood Count ATHE NA ([facility] [place]) white blood count 7.6 10 4.0-10.0 White Blood Count NORM ([facility] [place]) mean corpuscular volume 87.7 fL 80.0-96.0 Mean Corpusc ular Volume NORM ([facility] [place]) hematocrit 47.7 % 42.0-52.0 Hematocrit NORM ([facility] [place]) hemoglobin 15.8 g/dL 13.5-17.5 Hemoglobin NORM ([facility] [place]) mean corpuscular HGB conc 33.1 g/dL 32.0-36.5 Mean Corpu scular HGB Conc NORM ([facility] [place]) mean corpuscular hemoglobin 29.0 pg 27.0-33.0 Mean Cor puscular Hemoglobin NORM ([facility] [place]) red cell distribution width 11.9 % 11.5-14.5 Red Cell Distribution Width NORM ([facility] [place]) nucleated red blood cell % 0.0 % 0-0 Nucleated Red Blood Cell % NORM ([facility] [place]) platelet count, automated 284 10 150-450 Platelet C ount, Automated NORM ([facility] [place]) ID Date Data Source [id number] 09/06/2020 08:48:00 AM EST [place] ([facility] [place]) Name Value Range Interpretation Code Description Data Jania rce(s) Supporting Document(s) total 25(oh) vitamin D 15.0 NG/mL 30.0-100.0 Below low normal T otal 25(Oh) Vitamin D [place] ([facility] [place]) ID Date Data Source [id number] 09/06/2020 08:48:00 AM EST [place] ([facility] [place]) Name Value Range Interpretation Code Description Data Jania rce(s) Supporting Document(s) free T4 0.78 NG/dL 0.76-1.46 Free T4 NORM ([facility] [place]) thyroid stimulating hormone 9.020 uIU/mL 0.358-3.740 Above high no rmal Thyroid Stimulating Hormone NORM ([facility] [place]) ID Date Data Source [id number] 09/06/2020 08:48:00 AM EST NORM ([facility] [place]) Name Value Range Interpretation Code Description Data Jania rce(s) Supporting Document(s) triglycerides level 145 mg/dL <150 Triglycerides Le matthew NORM ([facility] [place]) HDL cholesterol 44 mg/dL >40 HDL Cholesterol ATHE ([facility] [place]) non-HDL-C 220 mg/dL Non-hdl-c NORM ([facility]) cholesterol level 264 mg/dL <200 Above high normal Cholesterol Level NORM ([facility] [place]) cholesterol risk ratio <5 Above high normal Choles terol Risk Ratio NORM ([facility] [place]) Cholesterol in LDL [Mass/volume] in Serum or Plasma 191 mg/dL <100 Above high normal LDL Cholesterol NORM ([facility]) ID Date Data Source [id number] 09/06/2020 08:48:00 AM EST NORM ([facility] [place]) Name Value Range Interpretation Code Description Data Jania rce(s) Supporting Document(s) glucose, fasting 82 mg/dL 70-100 Glucose, Fasting AT [facility]) creatinine for GFR 1.07 mg/dL 0.70-1.30 Creatinine for GF R NORM ([facility] [place]) sodium level 138 mEq/L 136-145 Sodium Level NORM ([facility]) glomerular filtration rate > 60.0 >60 [place] r Filtration Rate NORM ([facility] [place]) blood urea nitrogen 11 mg/dL 7-18 Blood Urea Nitro gen NROM ([facility] [place]) chloride level 101 mEq/L 98-107 Chloride Level NORM ([facility] [place]) anion gap 7 mEq/L 8-16 Below low normal Anion Gap NORM ( [facility] [place]) carbon dioxide level 30 mEq/L 21-32 Carbon Dioxide Level NORM ([facility] [place]) potassium serum 4.5 mEq/L 3.5-5.1 Potassium Serum ATHE ([facility] [place]) ALT/SGPT 38 U/L 12-78 ALT/SGPT NORM ([facility]) AST/SGOT 20 U/L 7-37 AST/SGOT NORM ([facility]) alkaline phosphatase 79 U/L 45-117 Alkaline Phosph atase NORM ([facility] [place]) calcium level 9.2 mg/dL 8.5-10.1 Calcium Level NORM ( [facility] [place]) albumin 4.7 gm/dL 3.2-5.2 Albumin NORM ([facility]) bilirubin,total 0.7 mg/dL 0.2-1.0 Bilirubin,total ATHE NA ([facility] [place]) albumin/globulin ratio Albumin/globu veda Ratio NORM ([facility] [place]) total protein 8.0 gm/dL 6.4-8.2 Total Protein NORM ( [facility] [place]) ID Date Data Source [id number] 09/06/2020 08:48:00 AM EST NORM ([facility] [place]) Name Value Range Interpretation Code Description Data Jania rce(s) Supporting Document(s) white blood count 5.8 10 4.0-10.0 White Blood Count NORM ([facility] [place]) hemoglobin 16.3 g/dL 13.5-17.5 Hemoglobin NORM ([facility] [place]) red blood count 5.59 10 4.30-6.10 Red Blood Count ATHE NA ([facility] [place]) mean corpuscular volume 89.1 fL 80.0-96.0 Mean Corpusc ular Volume NORM ([facility] [place]) hematocrit 49.8 % 42.0-52.0 Hematocrit NORM ([facility] [place]) mean corpuscular hemoglobin 29.2 pg 27.0-33.0 Mean Cor puscular Hemoglobin NORM ([facility] [place]) mean corpuscular HGB conc 32.7 g/dL 32.0-36.5 Mean Corpu scular HGB Conc NORM ([facility] [place]) neutrophils % 60.5 % 36.0-66.0 Neutrophils % NORM ( [facility] [place]) red cell distribution width 11.9 % 11.5-14.5 Red Cell Distribution Width NORM ([facility] [place]) platelet count, automated 269 10 150-450 Platelet C ount, Automated NORM ([facility] [place]) mono % 8.8 % 0.0-5.0 Above high normal [place] % NORM ([facility] [place]) eos % 2.4 % 0.0-3.0 Eos % NORM ([facility]) lymph % 27.0 % 24.0-44.0 Lymph % NORM ([facility]) nucleated red blood cell % 0.0 % 0-0 Nucleated Red Blood Cell % NORM ([facility] [place]) immature granulocyte % 0.3 % 0-3.0 Immature Gran ulocyte % NORM ([facility] [place]) neutrophils # 3.5 10 1.5-8.5 Neutrophils # NORM ( [facility] [place]) baso % 1.0 % 0.0-1.0 Baso % NORM ([facility]) lymph # 1.6 10 1.5-5.0 Lymph # NORM ([facility]) eos # 0.1 10 0.0-0.5 Eos # NORM ([facility]) mono # 0.5 10 0.0-0.8 [place] # NORM ([facility]) baso # 0.1 10 0.0-0.2 Baso # NORM ([facility]) ID Date Data Source [id number] 09/06/2020 08:48:00 AM EST [place] ([facility] [place]) Name Value Range Interpretation Code Description Data Jania rce(s) Supporting Document(s) total 25(oh) vitamin D 15.0 NG/mL 30.0-100.0 Below low normal T otal 25(Oh) Vitamin D [place] ([facility] [place]) ID Date Data Source [id number] 09/06/2020 08:48:00 AM EST NORM ([facility] [place]) Name Value Range Interpretation Code Description Data Jania rce(s) Supporting Document(s) free T4 0.78 NG/dL 0.76-1.46 Free T4 [place] ([facility] [place]) thyroid stimulating hormone 9.020 uIU/mL 0.358-3.740 Above high no rmal Thyroid Stimulating Hormone NORM ([facility] [place]) ID Date Data Source [id number] 09/06/2020 08:48:00 AM EST NORM ([facility] [place]) Name Value Range Interpretation Code Description Data Jania rce(s) Supporting Document(s) cholesterol level 264 mg/dL <200 Above high normal Cholesterol Level NORM ([facility] [place]) triglycerides level 145 mg/dL <150 Triglycerides Le matthew NORM ([facility] [place]) Cholesterol in LDL [Mass/volume] in Serum or Plasma 191 mg/dL <100 Above high normal LDL Cholesterol NORM ([facility]) non-HDL-C 220 mg/dL Non-hdl-c NORM ([facility]) HDL cholesterol 44 mg/dL >40 HDL Cholesterol ATHE ([facility] [place]) cholesterol risk ratio <5 Above high normal Choles terol Risk Ratio NORM ([facility] [place]) ID Date Data Source [id number] 09/06/2020 08:48:00 AM EST NORM ([facility] [place]) Name Value Range Interpretation Code Description Data Jania rce(s) Supporting Document(s) glucose, fasting 82 mg/dL 70-100 Glucose, Fasting AT [facility] ([facility] [place]) blood urea nitrogen 11 mg/dL 7-18 Blood Urea Nitro gen NORM ([facility] [place]) glomerular filtration rate > 60.0 >60 [place]omer[place] r Filtration Rate NORM ([facility] [place]) sodium level 138 mEq/L 136-145 Sodium Level NORM ([facility]) creatinine for GFR 1.07 mg/dL 0.70-1.30 Creatinine for GF R NORM ([facility] [place]) carbon dioxide level 30 mEq/L 21-32 Carbon Dioxide Level NORM ([facility] [place]) chloride level 101 mEq/L 98-107 Chloride Level NORM ([facility] [place]) potassium serum 4.5 mEq/L 3.5-5.1 Potassium Serum ATHE NA ([facility] [place]) AST/SGOT 20 U/L 7-37 AST/SGOT NORM ([facility]) anion gap 7 mEq/L 8-16 Below low normal Anion Gap NORM ( [facility] [place]) ALT/SGPT 38 U/L 12-78 ALT/SGPT NORM ([facility]) calcium level 9.2 mg/dL 8.5-10.1 Calcium Level NORM ( [facility] [place]) alkaline phosphatase 79 U/L 45-117 Alkaline Phosph atase NORM ([facility] [place]) total protein 8.0 gm/dL 6.4-8.2 Total Protein NORM ( [facility] [place]) albumin 4.7 gm/dL 3.2-5.2 Albumin NORM ([facility]) bilirubin,total 0.7 mg/dL 0.2-1.0 Bilirubin,total ATHE NA ([facility] [place]) albumin/globulin ratio Albumin/globu veda Ratio NORM ([facility] [place]) ID Date Data Source [id number] 09/06/2020 08:48:00 AM EST NORM ([facility] [place]) Name Value Range Interpretation Code Description Data Jania rce(s) Supporting Document(s) white blood count 5.8 10 4.0-10.0 White Blood Count NORM ([facility] [place]) red blood count 5.59 10 4.30-6.10 Red Blood Count ATHE ([facility] [place]) hematocrit 49.8 % 42.0-52.0 Hematocrit NORM ([facility] [place]) hemoglobin 16.3 g/dL 13.5-17.5 Hemoglobin NORM ([facility] [place]) mean corpuscular volume 89.1 fL 80.0-96.0 Mean Corpusc ular Volume NORM ([facility] [place]) mean corpuscular hemoglobin 29.2 pg 27.0-33.0 Mean Cor puscular Hemoglobin NORM ([facility] [place]) mean corpuscular HGB conc 32.7 g/dL 32.0-36.5 Mean Corpu scular HGB Conc NORM ([facility] [place]) platelet count, automated 269 10 150-450 Platelet C ount, Automated NORM ([facility] [place]) red cell distribution width 11.9 % 11.5-14.5 Red Cell Distribution Width NORM ([facility] [place]) mono % 8.8 % 0.0-5.0 Above high normal [place] % NORM ([facility] [place]) neutrophils % 60.5 % 36.0-66.0 Neutrophils % NORM ( [facility] [place]) eos % 2.4 % 0.0-3.0 Eos % NORM ([facility]) lymph % 27.0 % 24.0-44.0 Lymph % NORM ([facility]) baso % 1.0 % 0.0-1.0 Baso % NORM ([facility]) immature granulocyte % 0.3 % 0-3.0 Immature Gran ulocyte % NORM ([facility] [place]) neutrophils # 3.5 10 1.5-8.5 Neutrophils # NORM ( [facility] [place]) lymph # 1.6 10 1.5-5.0 Lymph # [place] ([facility]) nucleated red blood cell % 0.0 % 0-0 Nucleated Red Blood Cell % NORM ([facility] [place]) mono # 0.5 10 0.0-0.8 [place] # NORM ([facility]) baso # 0.1 10 0.0-0.2 Baso # NORM ([facility]) eos # 0.1 10 0.0-0.5 Eos # NORM ([facility]) ID Date Data Source [id number] 09/06/2020 08:48:00 AM EST NORM ([facility] [place]) Name Value Range Interpretation Code Description Data Jania rce(s) Supporting Document(s) total 25(oh) vitamin D 15.0 NG/mL 30.0-100.0 Below low normal T otal 25(Oh) Vitamin D NORM ([facility] [place]) ID Date Data Source [id number] 09/06/2020 08:48:00 AM EST NORM ([facility] [place]) Name Value Range Interpretation Code Description Data Jania rce(s) Supporting Document(s) thyroid stimulating hormone 9.020 uIU/mL 0.358-3.740 Above high no rmal Thyroid Stimulating Hormone NORM ([facility] [place]) free T4 0.78 NG/dL 0.76-1.46 Free T4 NORM ([facility] [place]) ID Date Data Source [id number] 09/06/2020 08:48:00 AM EST NORM ([facility] [place]) Name Value Range Interpretation Code Description Data Jania rce(s) Supporting Document(s) triglycerides level 145 mg/dL <150 Triglycerides Le matthew NORM ([facility] [place]) cholesterol level 264 mg/dL <200 Above high normal Cholesterol Level NORM ([facility] [place]) cholesterol risk ratio <5 Above high normal Choles terol Risk Ratio NORM ([facility] [place]) non-HDL-C 220 mg/dL Non-hdl-c NORM ([facility]) Cholesterol in LDL [Mass/volume] in Serum or Plasma 191 mg/dL <100 Above high normal LDL Cholesterol NORM ([facility]) HDL cholesterol 44 mg/dL >40 HDL Cholesterol ATHE ([facility] [place]) ID Date Data Source [id number] 09/06/2020 08:48:00 AM EST [facility]) Name Value Range Interpretation Code Description Data Jania rce(s) Supporting Document(s) glucose, fasting 82 mg/dL 70-100 Glucose, Fasting AT [facility] ([facility] [place]) creatinine for GFR 1.07 mg/dL 0.70-1.30 Creatinine for GF R NORM ([facility] [place]) blood urea nitrogen 11 mg/dL 7-18 Blood Urea Nitro gen NORM ([facility] [place]) glomerular filtration rate > 60.0 >60 [place]omer[place] r Filtration Rate NORM ([facility] [place]) potassium serum 4.5 mEq/L 3.5-5.1 Potassium Serum ATHE NA ([facility] [place]) sodium level 138 mEq/L 136-145 Sodium Level NORM ([facility]) anion gap 7 mEq/L 8-16 Below low normal Anion Gap NORM ( [facility] [place]) chloride level 101 mEq/L 98-107 Chloride Level NORM ([facility] [place]) carbon dioxide level 30 mEq/L 21-32 Carbon Dioxide Level NORM ([facility] [place]) AST/SGOT 20 U/L 7-37 AST/SGOT NORM ([facility]) ALT/SGPT 38 U/L 12-78 ALT/SGPT NORM ([facility]) calcium level 9.2 mg/dL 8.5-10.1 Calcium Level NORM ( [facility] [place]) albumin 4.7 gm/dL 3.2-5.2 Albumin NORM ([facility]) alkaline phosphatase 79 U/L 45-117 Alkaline Phosph atase NORM ([facility] [place]) total protein 8.0 gm/dL 6.4-8.2 Total Protein NORM ( [facility] [place]) bilirubin,total 0.7 mg/dL 0.2-1.0 Bilirubin,total ATHE NA ([facility] [place]) albumin/globulin ratio Albumin/globu veda Ratio NORM ([facility] [place]) ID Date Data Source [id number] 09/06/2020 08:48:00 AM EST NORM ([facility] [place]) Name Value Range Interpretation Code Description Data Jania rce(s) Supporting Document(s) white blood count 5.8 10 4.0-10.0 White Blood Count NORM ([facility] [place]) red blood count 5.59 10 4.30-6.10 Red Blood Count ATHE NA ([facility] [place]) mean corpuscular volume 89.1 fL 80.0-96.0 Mean Corpusc ular Volume NORM ([facility] [place]) hematocrit 49.8 % 42.0-52.0 Hematocrit NORM ([facility] [place]) hemoglobin 16.3 g/dL 13.5-17.5 Hemoglobin NORM ([facility] [place]) mean corpuscular hemoglobin 29.2 pg 27.0-33.0 Mean Cor puscular Hemoglobin NORM ([facility] [place]) mean corpuscular HGB conc 32.7 g/dL 32.0-36.5 Mean Corpu scular HGB Conc NORM ([facility] [place]) red cell distribution width 11.9 % 11.5-14.5 Red Cell Distribution Width NORM ([facility] [place]) lymph % 27.0 % 24.0-44.0 Lymph % NORM ([facility]) platelet count, automated 269 10 150-450 Platelet C ount, Automated NORM ([facility] [place]) mono % 8.8 % 0.0-5.0 Above high normal [place] % NORM ([facility] [place]) neutrophils % 60.5 % 36.0-66.0 Neutrophils % NORM ( [facility] [place]) eos % 2.4 % 0.0-3.0 Eos % NORM ([facility]) baso % 1.0 % 0.0-1.0 Baso % [place] ([facility]) nucleated red blood cell % 0.0 % 0-0 Nucleated Red Blood Cell % [place] ([facility] [place]) neutrophils # 3.5 10 1.5-8.5 Neutrophils # [place] ( [facility] [place]) immature granulocyte % 0.3 % 0-3.0 Immature Gran ulocyte % NORM ([facility] [place]) lymph # 1.6 10 1.5-5.0 Lymph # NORM ([facility]) mono # 0.5 10 0.0-0.8 [place] # NORM ([facility]) baso # 0.1 10 0.0-0.2 Baso # NORM ([facility]) eos # 0.1 10 0.0-0.5 Eos # NORM ([facility]) ID Date Data Source [id number] 09/06/2020 08:48:00 AM EST [place] ([facility] [place]) Name Value Range Interpretation Code Description Data Jania rce(s) Supporting Document(s) total 25(oh) vitamin D 15.0 NG/mL 30.0-100.0 Below low normal T otal 25(Oh) Vitamin D [place] ([facility] [place]) ID Date Data Source [id number] 09/06/2020 08:48:00 AM EST NORM ([facility] [place]) Name Value Range Interpretation Code Description Data Jania rce(s) Supporting Document(s) thyroid stimulating hormone 9.020 uIU/mL 0.358-3.740 Above high no rmal Thyroid Stimulating Hormone NORM ([facility] [place]) free T4 0.78 NG/dL 0.76-1.46 Free T4 NORM ([facility] [place]) ID Date Data Source [id number] 09/06/2020 08:48:00 AM EST NORM ([facility] [place]) Name Value Range Interpretation Code Description Data Jania rce(s) Supporting Document(s) triglycerides level 145 mg/dL <150 Triglycerides Le matthew NORM ([facility] [place]) cholesterol level 264 mg/dL <200 Above high normal Cholesterol Level NORM ([facility] [place]) non-HDL-C 220 mg/dL Non-hdl-c NORM ([facility]) Cholesterol in LDL [Mass/volume] in Serum or Plasma 191 mg/dL <100 Above high normal LDL Cholesterol NORM ([facility]) cholesterol risk ratio <5 Above high normal Choles terol Risk Ratio NORM ([facility] [place]) HDL cholesterol 44 mg/dL >40 HDL Cholesterol ATHE ([facility] [place]) ID Date Data Source [id number] 09/06/2020 08:48:00 AM EST NORM ([facility] [place]) Name Value Range Interpretation Code Description Data Jania rce(s) Supporting Document(s) glucose, fasting 82 mg/dL 70-100 Glucose, Fasting AT [facility] ([facility] [place]) blood urea nitrogen 11 mg/dL 7-18 Blood Urea Nitro gen NORM ([facility] [place]) creatinine for GFR 1.07 mg/dL 0.70-1.30 Creatinine for GF R NORM ([facility] [place]) sodium level 138 mEq/L 136-145 Sodium Level NORM ([facility]) chloride level 101 mEq/L 98-107 Chloride Level NORM ([facility] [place]) glomerular filtration rate > 60.0 >60 Glomerula r Filtration Rate NORM ([facility] [place]) potassium serum 4.5 mEq/L 3.5-5.1 Potassium Serum ATHE NA ([facility] [place]) AST/SGOT 20 U/L 7-37 AST/SGOT NORM ([facility]) anion gap 7 mEq/L 8-16 Below low normal Anion Gap NORM ( [facility] [place]) calcium level 9.2 mg/dL 8.5-10.1 Calcium Level NORM ( [facility] [place]) carbon dioxide level 30 mEq/L 21-32 Carbon Dioxide Level NORM ([facility] [place]) alkaline phosphatase 79 U/L 45-117 Alkaline Phosph atase NORM ([facility] [place]) bilirubin,total 0.7 mg/dL 0.2-1.0 Bilirubin,total ATHE ([facility]) total protein 8.0 gm/dL 6.4-8.2 Total Protein NORM ( [facility]) ALT/SGPT 38 U/L 12-78 ALT/SGPT NORM ([facility]) albumin/globulin ratio Albumin/globu veda Ratio NORM ([facility]) albumin 4.7 gm/dL 3.2-5.2 Albumin NORM ([facility]) ID Date Data Source [id number] 09/06/2020 08:48:00 AM EST NORM ([facility]) Name Value Range Interpretation Code Description Data Jania rce(s) Supporting Document(s) white blood count 5.8 10 4.0-10.0 White Blood Count NORM ([facility]) red blood count 5.59 10 4.30-6.10 Red Blood Count ATHE ([facility]) mean corpuscular volume 89.1 fL 80.0-96.0 Mean Corpusc ular Volume NORM ([facility]) hematocrit 49.8 % 42.0-52.0 Hematocrit NORM ([facility]) hemoglobin 16.3 g/dL 13.5-17.5 Hemoglobin NORM ([facility]) red cell distribution width 11.9 % 11.5-14.5 Red Cell Distribution Width NORM ([facility]) mean corpuscular HGB conc 32.7 g/dL 32.0-36.5 Mean Corpu scular HGB Conc NORM ([facility]) mean corpuscular hemoglobin 29.2 pg 27.0-33.0 Mean Cor puscular Hemoglobin NORM ([facility]) neutrophils % 60.5 % 36.0-66.0 Neutrophils % NORM ( [facility]) mono % 8.8 % 0.0-5.0 Above high normal [place] % [place] ([facility]) platelet count, automated 269 10 150-450 Platelet C ount, Automated NORM ([facility]) lymph % 27.0 % 24.0-44.0 Lymph % [place] ([facility]) immature granulocyte % 0.3 % 0-3.0 Immature Gran ulocyte % [place] ([facility]) baso % 1.0 % 0.0-1.0 Baso % NORM ([facility]) eos % 2.4 % 0.0-3.0 Eos % NORM ([facility]) neutrophils # 3.5 10 1.5-8.5 Neutrophils # NORM ( [facility]) mono # 0.5 10 0.0-0.8 [place] # [place] ([facility]) nucleated red blood cell % 0.0 % 0-0 Nucleated Red Blood Cell % NORM ([facility]) lymph # 1.6 10 1.5-5.0 Lymph # NORM ([facility]) baso # 0.1 10 0.0-0.2 Baso # NORM ([facility]) eos # 0.1 10 0.0-0.5 Eos # NORM ([facility]) ID Date Data Source [id number] 09/06/2020 08:48:00 AM EST [place] ([facility]) Name Value Range Interpretation Code Description Data Jania rce(s) Supporting Document(s) total 25(oh) vitamin D 15.0 NG/mL 30.0-100.0 Below low normal T otal 25(Oh) Vitamin D NORM ([facility]) ID Date Data Source [id number] 09/06/2020 08:48:00 AM EST NORM ([facility]) Name Value Range Interpretation Code Description Data Jania rce(s) Supporting Document(s) thyroid stimulating hormone 9.020 uIU/mL 0.358-3.740 Above high no rmal Thyroid Stimulating Hormone NORM ([facility]) free T4 0.78 NG/dL 0.76-1.46 Free T4 NORM ([facility]) ID Date Data Source [id number] 09/06/2020 08:48:00 AM EST NORM ([facility]) Name Value Range Interpretation Code Description Data Jania rce(s) Supporting Document(s) cholesterol level 264 mg/dL <200 Above high normal Cholesterol Level NORM ([facility]) triglycerides level 145 mg/dL <150 Triglycerides Le matthew NORM ([facility]) Cholesterol in LDL [Mass/volume] in Serum or Plasma 191 mg/dL <100 Above high normal LDL Cholesterol NORM ([facility]) HDL cholesterol 44 mg/dL >40 HDL Cholesterol ATHE NA ([facility]) non-HDL-C 220 mg/dL Non-hdl-c NORM ([facility]) cholesterol risk ratio <5 Above high normal Choles terol Risk Ratio NORM ([facility]) ID Date Data Source [id number] 09/06/2020 08:48:00 AM EST NORM ([facility]) Name Value Range Interpretation Code Description Data Jania rce(s) Supporting Document(s) blood urea nitrogen 11 mg/dL 7-18 Blood Urea Nitro gen NORM ([facility]) glucose, fasting 82 mg/dL 70-100 Glucose, Fasting AT [facility] ([facility]) creatinine for GFR 1.07 mg/dL 0.70-1.30 Creatinine for GF R NORM ([facility]) glomerular filtration rate > 60.0 >60 Glomerula r Filtration Rate NORM ([facility]) potassium serum 4.5 mEq/L 3.5-5.1 Potassium Serum ATHE NA ([facility]) sodium level 138 mEq/L 136-145 Sodium Level NORM ([facility]) chloride level 101 mEq/L 98-107 Chloride Level NORM ([facility]) carbon dioxide level 30 mEq/L 21-32 Carbon Dioxide Level NORM ([facility]) calcium level 9.2 mg/dL 8.5-10.1 Calcium Level NORM ( [facility]) anion gap 7 mEq/L 8-16 Below low normal Anion Gap NORM ( [facility]) AST/SGOT 20 U/L 7-37 AST/SGOT NORM ([facility]) total protein 8.0 gm/dL 6.4-8.2 Total Protein NORM ( [facility]) ALT/SGPT 38 U/L 12-78 ALT/SGPT NORM ([facility]) bilirubin,total 0.7 mg/dL 0.2-1.0 Bilirubin,total ATHE NA ([facility]) alkaline phosphatase 79 U/L 45-117 Alkaline Phosph atase NORM ([facility]) albumin 4.7 gm/dL 3.2-5.2 Albumin NORM ([facility]) albumin/globulin ratio Albumin/globu veda Ratio NORM ([facility]) ID Date Data Source [id number] 09/06/2020 08:48:00 AM EST NORM ([facility]) Name Value Range Interpretation Code Description Data Jania rce(s) Supporting Document(s) white blood count 5.8 10 4.0-10.0 White Blood Count NORM ([facility]) red blood count 5.59 10 4.30-6.10 Red Blood Count ATHE ([facility]) mean corpuscular volume 89.1 fL 80.0-96.0 Mean Corpusc ular Volume NORM ([facility]) mean corpuscular hemoglobin 29.2 pg 27.0-33.0 Mean Cor puscular Hemoglobin NORM ([facility]) hematocrit 49.8 % 42.0-52.0 Hematocrit NORM ([facility]) hemoglobin 16.3 g/dL 13.5-17.5 Hemoglobin NORM ([facility]) platelet count, automated 269 10 150-450 Platelet C ount, Automated NORM ([facility]) red cell distribution width 11.9 % 11.5-14.5 Red Cell Distribution Width NORM ([facility]) mean corpuscular HGB conc 32.7 g/dL 32.0-36.5 Mean Corpu scular HGB Conc NORM ([facility]) lymph % 27.0 % 24.0-44.0 Lymph % NORM ([facility]) neutrophils % 60.5 % 36.0-66.0 Neutrophils % NORM ( [facility]) mono % 8.8 % 0.0-5.0 Above high normal [place] % NORM ([facility]) eos % 2.4 % 0.0-3.0 Eos % NORM ([facility]) baso % 1.0 % 0.0-1.0 Baso % NORM ([facility]) nucleated red blood cell % 0.0 % 0-0 Nucleated Red Blood Cell % NORM ([facility]) neutrophils # 3.5 10 1.5-8.5 Neutrophils # [place] ( [facility]) immature granulocyte % 0.3 % 0-3.0 Immature Gran ulocyte % NORM ([facility]) eos # 0.1 10 0.0-0.5 Eos # NORM ([facility]) lymph # 1.6 10 1.5-5.0 Lymph # NORM ([facility]) mono # 0.5 10 0.0-0.8 [place] # NORM ([facility]) baso # 0.1 10 0.0-0.2 Baso # NORM ([facility]) ID Date Data Source [id number] 09/06/2020 08:48:00 AM EST [place] ([facility]) Name Value Range Interpretation Code Description Data Jania rce(s) Supporting Document(s) total 25(oh) vitamin D 15.0 NG/mL 30.0-100.0 Below low normal T otal 25(Oh) Vitamin D NORM ([facility]) ID Date Data Source [id number] 09/06/2020 08:48:00 AM EST NORM ([facility]) Name Value Range Interpretation Code Description Data Jania rce(s) Supporting Document(s) free T4 0.78 NG/dL 0.76-1.46 Free T4 NORM ([facility]) thyroid stimulating hormone 9.020 uIU/mL 0.358-3.740 Above high no rmal Thyroid Stimulating Hormone NORM ([facility]) ID Date Data Source [id number] 09/06/2020 08:48:00 AM EST NORM ([facility]) Name Value Range Interpretation Code Description Data Jania rce(s) Supporting Document(s) cholesterol level 264 mg/dL <200 Above high normal Cholesterol Level NORM ([facility]) triglycerides level 145 mg/dL <150 Triglycerides Le matthew NORM ([facility]) non-HDL-C 220 mg/dL Non-hdl-c NORM ([facility]) Cholesterol in LDL [Mass/volume] in Serum or Plasma 191 mg/dL <100 Above high normal LDL Cholesterol NORM ([facility]) HDL cholesterol 44 mg/dL >40 HDL Cholesterol ATHE NA ([facility]) cholesterol risk ratio <5 Above high normal Choles terol Risk Ratio NORM ([facility]) ID Date Data Source [id number] 09/06/2020 08:48:00 AM EST NORM ([facility]) Name Value Range Interpretation Code Description Data Jania rce(s) Supporting Document(s) blood urea nitrogen 11 mg/dL 7-18 Blood Urea Nitro gen NORM ([facility]) glucose, fasting 82 mg/dL 70-100 Glucose, Fasting AT [facility] ([facility]) creatinine for GFR 1.07 mg/dL 0.70-1.30 Creatinine for GF R NORM ([facility]) sodium level 138 mEq/L 136-145 Sodium Level NORM ([facility]) potassium serum 4.5 mEq/L 3.5-5.1 Potassium Serum ATHE NA ([facility]) glomerular filtration rate > 60.0 >60 Glomer[place] r Filtration Rate NORM ([facility]) anion gap 7 mEq/L 8-16 Below low normal Anion Gap NORM ( [facility]) calcium level 9.2 mg/dL 8.5-10.1 Calcium Level NORM ( [facility]) chloride level 101 mEq/L 98-107 Chloride Level NORM ([facility]) carbon dioxide level 30 mEq/L 21-32 Carbon Dioxide Level NORM ([facility]) AST/SGOT 20 U/L 7-37 AST/SGOT NORM ([facility]) ALT/SGPT 38 U/L 12-78 ALT/SGPT NORM ([facility]) bilirubin,total 0.7 mg/dL 0.2-1.0 Bilirubin,total ATHE ([facility]) alkaline phosphatase 79 U/L 45-117 Alkaline Phosph atase NORM ([facility]) albumin/globulin ratio Albumin/globu veda Ratio NORM ([facility]) albumin 4.7 gm/dL 3.2-5.2 Albumin NORM ([facility]) total protein 8.0 gm/dL 6.4-8.2 Total Protein NORM ( [facility]) ID Date Data Source [id number] 09/06/2020 08:48:00 AM EST NORM ([facility]) Name Value Range Interpretation Code Description Data Jania rce(s) Supporting Document(s) white blood count 5.8 10 4.0-10.0 White Blood Count NORM ([facility]) hemoglobin 16.3 g/dL 13.5-17.5 Hemoglobin NORM ([facility]) red blood count 5.59 10 4.30-6.10 Red Blood Count ATHE NA ([facility]) mean corpuscular volume 89.1 fL 80.0-96.0 Mean Corpusc ular Volume NORM ([facility]) hematocrit 49.8 % 42.0-52.0 Hematocrit NORM ([facility]) red cell distribution width 11.9 % 11.5-14.5 Red Cell Distribution Width NORM ([facility]) mean corpuscular hemoglobin 29.2 pg 27.0-33.0 Mean Cor puscular Hemoglobin NORM ([facility]) mean corpuscular HGB conc 32.7 g/dL 32.0-36.5 Mean Corpu scular HGB Conc NORM ([facility]) platelet count, automated 269 10 150-450 Platelet C ount, Automated NORM ([facility]) neutrophils % 60.5 % 36.0-66.0 Neutrophils % NORM ( [facility]) mono % 8.8 % 0.0-5.0 Above high normal [place] % NORM ([facility]) lymph % 27.0 % 24.0-44.0 Lymph % NORM ([facility]) eos % 2.4 % 0.0-3.0 Eos % NORM ([facility]) immature granulocyte % 0.3 % 0-3.0 Immature Gran ulocyte % NORM ([facility]) baso % 1.0 % 0.0-1.0 Baso % NORM ([facility]) mono # 0.5 10 0.0-0.8 [place] # NORM ([facility]) neutrophils # 3.5 10 1.5-8.5 Neutrophils # NORM ( [facility]) lymph # 1.6 10 1.5-5.0 Lymph # NORM ([facility]) nucleated red blood cell % 0.0 % 0-0 Nucleated Red Blood Cell % NORM ([facility]) eos # 0.1 10 0.0-0.5 Eos # NORM ([facility]) baso # 0.1 10 0.0-0.2 Baso # NORM ([facility]) ID Date Data Source [id number] 09/06/2020 08:48:00 AM EST NORM ([facility]) Name Value Range Interpretation Code Description Data Jania rce(s) Supporting Document(s) total 25(oh) vitamin D 15.0 NG/mL 30.0-100.0 Below low normal T otal 25(Oh) Vitamin D NORM ([facility]) ID Date Data Source [id number] 09/06/2020 08:48:00 AM EST NORM ([facility]) Name Value Range Interpretation Code Description Data Jania rce(s) Supporting Document(s) thyroid stimulating hormone 9.020 uIU/mL 0.358-3.740 Above high no rmal Thyroid Stimulating Hormone NORM ([facility]) free T4 0.78 NG/dL 0.76-1.46 Free T4 NORM ([facility]) ID Date Data Source [id number] 09/06/2020 08:48:00 AM EST NORM ([facility]) Name Value Range Interpretation Code Description Data Jania rce(s) Supporting Document(s) triglycerides level 145 mg/dL <150 Triglycerides Le matthew NORM ([facility]) non-HDL-C 220 mg/dL Non-hdl-c NORM ([facility]) cholesterol level 264 mg/dL <200 Above high normal Cholesterol Level NORM ([facility]) HDL cholesterol 44 mg/dL >40 HDL Cholesterol ATHE NA ([facility]) Cholesterol in LDL [Mass/volume] in Serum or Plasma 191 mg/dL <100 Above high normal LDL Cholesterol NORM ([facility]) cholesterol risk ratio <5 Above high normal Choles terol Risk Ratio NORM ([facility]) ID Date Data Source [id number] 09/06/2020 08:48:00 AM EST NORM ([facility]) Name Value Range Interpretation Code Description Data Jania rce(s) Supporting Document(s) glucose, fasting 82 mg/dL 70-100 Glucose, Fasting AT [place] ([facility]) creatinine for GFR 1.07 mg/dL 0.70-1.30 Creatinine for GF R NORM ([facility]) blood urea nitrogen 11 mg/dL 7-18 Blood Urea Nitro gen NORM ([facility]) potassium serum 4.5 mEq/L 3.5-5.1 Potassium Serum ATHE NA ([facility]) sodium level 138 mEq/L 136-145 Sodium Level NORM ([facility]) glomerular filtration rate > 60.0 >60 Glomerula r Filtration Rate NORM ([facility]) anion gap 7 mEq/L 8-16 Below low normal Anion Gap NORM ( [facility]) carbon dioxide level 30 mEq/L 21-32 Carbon Dioxide Level NORM ([facility]) chloride level 101 mEq/L 98-107 Chloride Level NORM ([facility]) AST/SGOT 20 U/L 7-37 AST/SGOT NORM ([facility]) ALT/SGPT 38 U/L 12-78 ALT/SGPT NORM ([facility]) calcium level 9.2 mg/dL 8.5-10.1 Calcium Level NORM ( [facility]) total protein 8.0 gm/dL 6.4-8.2 Total Protein NORM ( [facility]) bilirubin,total 0.7 mg/dL 0.2-1.0 Bilirubin,total ATHE ([facility]) alkaline phosphatase 79 U/L 45-117 Alkaline Phosph atase NORM ([facility]) albumin 4.7 gm/dL 3.2-5.2 Albumin NORM ([facility]) albumin/globulin ratio Albumin/globu veda Ratio NORM ([facility]) ID Date Data Source [id number] 09/06/2020 08:48:00 AM EST NORM ([facility]) Name Value Range Interpretation Code Description Data Jania rce(s) Supporting Document(s) white blood count 5.8 10 4.0-10.0 White Blood Count NORM ([facility]) red blood count 5.59 10 4.30-6.10 Red Blood Count ATHE NA ([facility]) hemoglobin 16.3 g/dL 13.5-17.5 Hemoglobin NORM ([facility]) hematocrit 49.8 % 42.0-52.0 Hematocrit NORM ([facility]) mean corpuscular hemoglobin 29.2 pg 27.0-33.0 Mean Cor puscular Hemoglobin NORM ([facility]) mean corpuscular volume 89.1 fL 80.0-96.0 Mean Corpusc ular Volume NORM ([facility]) red cell distribution width 11.9 % 11.5-14.5 Red Cell Distribution Width NORM ([facility]) platelet count, automated 269 10 150-450 Platelet C ount, Automated NORM ([facility]) mean corpuscular HGB conc 32.7 g/dL 32.0-36.5 Mean Corpu scular HGB Conc NORM ([facility]) lymph % 27.0 % 24.0-44.0 Lymph % NORM ([facility]) neutrophils % 60.5 % 36.0-66.0 Neutrophils % NORM ( [facility]) eos % 2.4 % 0.0-3.0 Eos % NORM ([facility]) mono % 8.8 % 0.0-5.0 Above high normal [place] % NORM ([facility]) baso % 1.0 % 0.0-1.0 Baso % NORM ([facility]) immature granulocyte % 0.3 % 0-3.0 Immature Gran ulocyte % NORM ([facility]) nucleated red blood cell % 0.0 % 0-0 Nucleated Red Blood Cell % NORM ([facility]) mono # 0.5 10 0.0-0.8 [place] # NORM ([facility]) lymph # 1.6 10 1.5-5.0 Lymph # NORM ([facility]) neutrophils # 3.5 10 1.5-8.5 Neutrophils # NORM ( [facility]) baso # 0.1 10 0.0-0.2 Baso # NORM ([facility]) eos # 0.1 10 0.0-0.5 Eos # NORM ([facility]) ID Date Data Source [id number] 09/06/2020 08:48:00 AM EST NORM ([facility]) Name Value Range Interpretation Code Description Data Jania rce(s) Supporting Document(s) total 25(oh) vitamin D 15.0 NG/mL 30.0-100.0 Below low normal T otal 25(Oh) Vitamin D NORM ([facility]) ID Date Data Source [id number] 09/06/2020 08:48:00 AM EST NORM ([facility]) Name Value Range Interpretation Code Description Data Jania rce(s) Supporting Document(s) free T4 0.78 NG/dL 0.76-1.46 Free T4 NORM ([facility]) thyroid stimulating hormone 9.020 uIU/mL 0.358-3.740 Above high no rmal Thyroid Stimulating Hormone NORM ([facility]) ID Date Data Source [id number] 09/06/2020 08:48:00 AM EST NORM ([facility]) Name Value Range Interpretation Code Description Data Jania rce(s) Supporting Document(s) triglycerides level 145 mg/dL <150 Triglycerides Le matthew NORM ([facility]) cholesterol level 264 mg/dL <200 Above high normal Cholesterol Level NORM ([facility]) HDL cholesterol 44 mg/dL >40 HDL Cholesterol ATHE NA ([facility]) Cholesterol in LDL [Mass/volume] in Serum or Plasma 191 mg/dL <100 Above high normal LDL Cholesterol NORM ([facility]) non-HDL-C 220 mg/dL Non-hdl-c NORM ([facility]) cholesterol risk ratio <5 Above high normal Choles terol Risk Ratio NORM ([facility]) ID Date Data Source [id number] 09/06/2020 08:48:00 AM EST NORM ([facility]) Name Value Range Interpretation Code Description Data Jania rce(s) Supporting Document(s) glucose, fasting 82 mg/dL 70-100 Glucose, Fasting AT [facility] ([facility]) glomerular filtration rate > 60.0 >60 Glomerula r Filtration Rate NORM ([facility]) sodium level 138 mEq/L 136-145 Sodium Level NORM ([facility]) creatinine for GFR 1.07 mg/dL 0.70-1.30 Creatinine for GF R NORM ([facility]) blood urea nitrogen 11 mg/dL 7-18 Blood Urea Nitro gen NORM ([facility]) potassium serum 4.5 mEq/L 3.5-5.1 Potassium Serum ATHE NA ([facility]) chloride level 101 mEq/L 98-107 Chloride Level [place] ([facility]) carbon dioxide level 30 mEq/L 21-32 Carbon Dioxide Level NORM ([facility]) anion gap 7 mEq/L 8-16 Below low normal Anion Gap NORM ( [facility]) AST/SGOT 20 U/L 7-37 AST/SGOT NORM ([facility]) ALT/SGPT 38 U/L 12-78 ALT/SGPT NORM ([facility]) calcium level 9.2 mg/dL 8.5-10.1 Calcium Level NORM ( [facility]) alkaline phosphatase 79 U/L 45-117 Alkaline Phosph atase NORM ([facility]) total protein 8.0 gm/dL 6.4-8.2 Total Protein NORM ( [facility]) bilirubin,total 0.7 mg/dL 0.2-1.0 Bilirubin,total ATHE NA ([facility]) albumin 4.7 gm/dL 3.2-5.2 Albumin NORM ([facility]) albumin/globulin ratio Albumin/globu veda Ratio NORM ([facility]) ID Date Data Source [id number] 09/06/2020 08:48:00 AM EST NORM ([facility]) Name Value Range Interpretation Code Description Data Jania rce(s) Supporting Document(s) white blood count 5.8 10 4.0-10.0 White Blood Count NORM ([facility]) hemoglobin 16.3 g/dL 13.5-17.5 Hemoglobin NORM ([facility]) red blood count 5.59 10 4.30-6.10 Red Blood Count ATHE NA ([facility]) mean corpuscular volume 89.1 fL 80.0-96.0 Mean Corpusc ular Volume NORM ([facility]) hematocrit 49.8 % 42.0-52.0 Hematocrit NORM ([facility]) mean corpuscular HGB conc 32.7 g/dL 32.0-36.5 Mean Corpu scular HGB Conc NORM ([facility]) mean corpuscular hemoglobin 29.2 pg 27.0-33.0 Mean Cor puscular Hemoglobin NORM ([facility]) neutrophils % 60.5 % 36.0-66.0 Neutrophils % NORM ( [facility]) lymph % 27.0 % 24.0-44.0 Lymph % NORM ([facility]) red cell distribution width 11.9 % 11.5-14.5 Red Cell Distribution Width NORM ([facility]) platelet count, automated 269 10 150-450 Platelet C ount, Automated NORM ([facility]) eos % 2.4 % 0.0-3.0 Eos % NORM ([facility]) baso % 1.0 % 0.0-1.0 Baso % NORM ([facility]) mono % 8.8 % 0.0-5.0 Above high normal [place] % NORM ([facility]) nucleated red blood cell % 0.0 % 0-0 Nucleated Red Blood Cell % NORM ([facility]) neutrophils # 3.5 10 1.5-8.5 Neutrophils # [place] ( [facility]) immature granulocyte % 0.3 % 0-3.0 Immature Gran ulocyte % NORM ([facility]) lymph # 1.6 10 1.5-5.0 Lymph # NORM ([facility]) mono # 0.5 10 0.0-0.8 [place] # NORM ([facility]) baso # 0.1 10 0.0-0.2 Baso # NORM ([facility]) eos # 0.1 10 0.0-0.5 Eos # NORM ([facility]) ID Date Data Source [id number] 09/06/2020 08:48:00 AM EST NORM ([facility]) Name Value Range Interpretation Code Description Data Jania rce(s) Supporting Document(s) total 25(oh) vitamin D 15.0 NG/mL 30.0-100.0 Below low normal T otal 25(Oh) Vitamin D NORM ([facility]) ID Date Data Source [id number] 09/06/2020 08:48:00 AM EST NORM ([facility]) Name Value Range Interpretation Code Description Data Jania rce(s) Supporting Document(s) free T4 0.78 NG/dL 0.76-1.46 Free T4 NORM ([facility]) thyroid stimulating hormone 9.020 uIU/mL 0.358-3.740 Above high no rmal Thyroid Stimulating Hormone NORM ([facility]) ID Date Data Source [id number] 09/06/2020 08:48:00 AM EST NORM ([facility]) Name Value Range Interpretation Code Description Data Jania rce(s) Supporting Document(s) cholesterol level 264 mg/dL <200 Above high normal Cholesterol Level NORM ([facility]) HDL cholesterol 44 mg/dL >40 HDL Cholesterol ATHE NA ([facility]) triglycerides level 145 mg/dL <150 Triglycerides Le matthew NORM ([facility]) cholesterol risk ratio <5 Above high normal Choles terol Risk Ratio NORM ([facility]) Cholesterol in LDL [Mass/volume] in Serum or Plasma 191 mg/dL <100 Above high normal LDL Cholesterol NORM ([facility]) non-HDL-C 220 mg/dL Non-hdl-c NORM ([facility]) ID Date Data Source [id number] 09/06/2020 08:48:00 AM EST NORM ([facility]) Name Value Range Interpretation Code Description Data Jania rce(s) Supporting Document(s) glucose, fasting 82 mg/dL 70-100 Glucose, Fasting AT [facility] ([facility]) blood urea nitrogen 11 mg/dL 7-18 Blood Urea Nitro gen NORM ([facility]) glomerular filtration rate > 60.0 >60 Glomerula r Filtration Rate NORM ([facility]) sodium level 138 mEq/L 136-145 Sodium Level NORM ([facility]) creatinine for GFR 1.07 mg/dL 0.70-1.30 Creatinine for GF R NORM ([facility]) chloride level 101 mEq/L 98-107 Chloride Level NORM ([facility]) carbon dioxide level 30 mEq/L 21-32 Carbon Dioxide Level NORM ([facility]) anion gap 7 mEq/L 8-16 Below low normal Anion Gap NORM ( [facility]) potassium serum 4.5 mEq/L 3.5-5.1 Potassium Serum ATHE ([facility]) alkaline phosphatase 79 U/L 45-117 Alkaline Phosph atase NORM ([facility]) ALT/SGPT 38 U/L 12-78 ALT/SGPT NORM ([facility]) AST/SGOT 20 U/L 7-37 AST/SGOT NORM ([facility]) calcium level 9.2 mg/dL 8.5-10.1 Calcium Level NORM ( [facility]) total protein 8.0 gm/dL 6.4-8.2 Total Protein NORM ( [facility]) albumin 4.7 gm/dL 3.2-5.2 Albumin NORM ([facility]) bilirubin,total 0.7 mg/dL 0.2-1.0 Bilirubin,total ATHE ([facility]) albumin/globulin ratio Albumin/globu veda Ratio NORM ([facility]) ID Date Data Source [id number] 09/06/2020 08:48:00 AM EST NORM ([facility]) Name Value Range Interpretation Code Description Data Jania rce(s) Supporting Document(s) white blood count 5.8 10 4.0-10.0 White Blood Count NORM ([facility]) hemoglobin 16.3 g/dL 13.5-17.5 Hemoglobin NORM ([facility]) red blood count 5.59 10 4.30-6.10 Red Blood Count ATHE NA ([facility]) mean corpuscular HGB conc 32.7 g/dL 32.0-36.5 Mean Corpu scular HGB Conc NORM ([facility]) mean corpuscular hemoglobin 29.2 pg 27.0-33.0 Mean Cor puscular Hemoglobin NORM ([facility]) mean corpuscular volume 89.1 fL 80.0-96.0 Mean Corpusc ular Volume NORM ([facility]) hematocrit 49.8 % 42.0-52.0 Hematocrit NORM ([facility]) neutrophils % 60.5 % 36.0-66.0 Neutrophils % NORM ( [facility]) platelet count, automated 269 10 150-450 Platelet C ount, Automated NORM ([facility]) red cell distribution width 11.9 % 11.5-14.5 Red Cell Distribution Width NORM ([facility]) eos % 2.4 % 0.0-3.0 Eos % NORM ([facility]) baso % 1.0 % 0.0-1.0 Baso % NORM ([facility]) mono % 8.8 % 0.0-5.0 Above high normal [place] % NORM ([facility]) lymph % 27.0 % 24.0-44.0 Lymph % NORM ([facility]) neutrophils # 3.5 10 1.5-8.5 Neutrophils # NORM ( [facility]) nucleated red blood cell % 0.0 % 0-0 Nucleated Red Blood Cell % NORM ([facility]) lymph # 1.6 10 1.5-5.0 Lymph # NORM ([facility]) immature granulocyte % 0.3 % 0-3.0 Immature Gran ulocyte % NORM ([facility]) mono # 0.5 10 0.0-0.8 [place] # NORM ([facility]) baso # 0.1 10 0.0-0.2 Baso # NORM ([facility]) eos # 0.1 10 0.0-0.5 Eos # NORM ([facility]) ID Date Data Source [id number] 09/06/2020 08:48:00 AM EST NORM ([facility]) Name Value Range Interpretation Code Description Data Jania rce(s) Supporting Document(s) total 25(oh) vitamin D 15.0 NG/mL 30.0-100.0 Below low normal T otal 25(Oh) Vitamin D [place] ([facility]) ID Date Data Source [id number] 09/06/2020 08:48:00 AM EST NORM ([facility]) Name Value Range Interpretation Code Description Data Jania rce(s) Supporting Document(s) thyroid stimulating hormone 9.020 uIU/mL 0.358-3.740 Above high no rmal Thyroid Stimulating Hormone NORM ([facility]) free T4 0.78 NG/dL 0.76-1.46 Free T4 [place] ([facility]) ID Date Data Source [id number] 09/06/2020 08:48:00 AM EST NORM ([facility]) Name Value Range Interpretation Code Description Data Jania rce(s) Supporting Document(s) cholesterol level 264 mg/dL <200 Above high normal Cholesterol Level NORM ([facility]) triglycerides level 145 mg/dL <150 Triglycerides Le matthew NORM ([facility]) Cholesterol in LDL [Mass/volume] in Serum or Plasma 191 mg/dL <100 Above high normal LDL Cholesterol NORM ([facility]) non-HDL-C 220 mg/dL Non-hdl-c [facility] ([facility]) HDL cholesterol 44 mg/dL >40 HDL Cholesterol ATHE ([facility]) cholesterol risk ratio <5 Above high normal Choles terol Risk Ratio NORM ([facility]) ID Date Data Source [id number] 09/06/2020 08:48:00 AM EST NORM ([facility]) Name Value Range Interpretation Code Description Data Jania rce(s) Supporting Document(s) glucose, fasting 82 mg/dL 70-100 Glucose, Fasting AT [facility] ([facility]) glomerular filtration rate > 60.0 >60 Glomerula r Filtration Rate NORM ([facility]) creatinine for GFR 1.07 mg/dL 0.70-1.30 Creatinine for GF R NORM ([facility]) blood urea nitrogen 11 mg/dL 7-18 Blood Urea Nitro gen NORM ([facility]) potassium serum 4.5 mEq/L 3.5-5.1 Potassium Serum ATHE ([facility]) sodium level 138 mEq/L 136-145 Sodium Level NORM ([facility]) chloride level 101 mEq/L 98-107 Chloride Level NORM ([facility]) carbon dioxide level 30 mEq/L 21-32 Carbon Dioxide Level [place] ([facility]) calcium level 9.2 mg/dL 8.5-10.1 Calcium Level NORM ( [facility]) AST/SGOT 20 U/L 7-37 AST/SGOT NORM ([facility]) anion gap 7 mEq/L 8-16 Below low normal Anion Gap NORM ( [facility]) alkaline phosphatase 79 U/L 45-117 Alkaline Phosph atase NORM ([facility]) ALT/SGPT 38 U/L 12-78 ALT/SGPT NORM ([facility]) total protein 8.0 gm/dL 6.4-8.2 Total Protein NORM ( [facility]) bilirubin,total 0.7 mg/dL 0.2-1.0 Bilirubin,total ATHE [facility]) albumin 4.7 gm/dL 3.2-5.2 Albumin NORM ([facility]) albumin/globulin ratio Albumin/globu veda Ratio NORM ([facility]) ID Date Data Source [id number] 09/06/2020 08:48:00 AM EST NORM ([facility]) Name Value Range Interpretation Code Description Data Jania rce(s) Supporting Document(s) white blood count 5.8 10 4.0-10.0 White Blood Count NORM ([facility]) hemoglobin 16.3 g/dL 13.5-17.5 Hemoglobin NORM ([facility]) red blood count 5.59 10 4.30-6.10 Red Blood Count ATHE NA ([facility]) hematocrit 49.8 % 42.0-52.0 Hematocrit NORM ([facility]) mean corpuscular volume 89.1 fL 80.0-96.0 Mean Corpusc ular Volume NORM ([facility]) mean corpuscular hemoglobin 29.2 pg 27.0-33.0 Mean Cor puscular Hemoglobin NORM ([facility]) mean corpuscular HGB conc 32.7 g/dL 32.0-36.5 Mean Corpu scular HGB Conc NORM ([facility]) neutrophils % 60.5 % 36.0-66.0 Neutrophils % NORM ( [facility]) red cell distribution width 11.9 % 11.5-14.5 Red Cell Distribution Width NORM ([facility]) lymph % 27.0 % 24.0-44.0 Lymph % NORM ([facility]) platelet count, automated 269 10 150-450 Platelet C ount, Automated NORM ([facility]) immature granulocyte % 0.3 % 0-3.0 Immature Gran ulocyte % NORM ([facility]) baso % 1.0 % 0.0-1.0 Baso % NORM ([facility]) eos % 2.4 % 0.0-3.0 Eos % NORM ([facility]) mono % 8.8 % 0.0-5.0 Above high normal [place] % NORM ([facility]) nucleated red blood cell % 0.0 % 0-0 Nucleated Red Blood Cell % NORM ([facility]) neutrophils # 3.5 10 1.5-8.5 Neutrophils # NORM ( [facility]) mono # 0.5 10 0.0-0.8 [place] # NORM ([facility]) baso # 0.1 10 0.0-0.2 Baso # NORM ([facility]) lymph # 1.6 10 1.5-5.0 Lymph # NORM ([facility]) eos # 0.1 10 0.0-0.5 Eos # NORM ([facility]) ID Date Data Source [id number] 09/06/2020 08:48:00 AM EST NORM ([facility]) Name Value Range Interpretation Code Description Data Jania rce(s) Supporting Document(s) total 25(oh) vitamin D 15.0 NG/mL 30.0-100.0 Below low normal T otal 25(Oh) Vitamin D [place] ([facility]) ID Date Data Source [id number] 09/06/2020 08:48:00 AM EST NORM ([facility]) Name Value Range Interpretation Code Description Data Jania rce(s) Supporting Document(s) thyroid stimulating hormone 9.020 uIU/mL 0.358-3.740 Above high no rmal Thyroid Stimulating Hormone NORM ([facility]) free T4 0.78 NG/dL 0.76-1.46 Free T4 NORM ([facility]) ID Date Data Source [id number] 09/06/2020 08:48:00 AM EST NORM ([facility]) Name Value Range Interpretation Code Description Data Jania rce(s) Supporting Document(s) triglycerides level 145 mg/dL <150 Triglycerides Le matthew NORM ([facility]) Cholesterol in LDL [Mass/volume] in Serum or Plasma 191 mg/dL <100 Above high normal LDL Cholesterol NORM ([facility]) HDL cholesterol 44 mg/dL >40 HDL Cholesterol ATHE ([facility]) non-HDL-C 220 mg/dL Non-hdl-c NORM ([facility]) cholesterol level 264 mg/dL <200 Above high normal Cholesterol Level NORM ([facility]) cholesterol risk ratio <5 Above high normal Choles terol Risk Ratio NORM ([facility]) ID Date Data Source [id number] 09/06/2020 08:48:00 AM EST NORM ([facility]) Name Value Range Interpretation Code Description Data Jania rce(s) Supporting Document(s) blood urea nitrogen 11 mg/dL 7-18 Blood Urea Nitro gen NORM ([facility]) glucose, fasting 82 mg/dL 70-100 Glucose, Fasting AT [facility] ([facility]) creatinine for GFR 1.07 mg/dL 0.70-1.30 Creatinine for GF R NORM ([facility]) carbon dioxide level 30 mEq/L 21-32 Carbon Dioxide Level NORM ([facility]) potassium serum 4.5 mEq/L 3.5-5.1 Potassium Serum ATHE ([facility]) glomerular filtration rate > 60.0 >60 Glomerula r Filtration Rate NORM ([facility]) sodium level 138 mEq/L 136-145 Sodium Level NORM ([facility]) chloride level 101 mEq/L 98-107 Chloride Level NORM ([facility]) anion gap 7 mEq/L 8-16 Below low normal Anion Gap NORM ( [facility]) AST/SGOT 20 U/L 7-37 AST/SGOT NORM ([facility]) calcium level 9.2 mg/dL 8.5-10.1 Calcium Level NORM ( [facility]) bilirubin,total 0.7 mg/dL 0.2-1.0 Bilirubin,total ATHE ([facility]) ALT/SGPT 38 U/L 12-78 ALT/SGPT NORM ([facility]) alkaline phosphatase 79 U/L 45-117 Alkaline Phosph atase NORM ([facility]) total protein 8.0 gm/dL 6.4-8.2 Total Protein NORM ( [facility]) albumin 4.7 gm/dL 3.2-5.2 Albumin NORM ([facility]) albumin/globulin ratio Albumin/globu veda Ratio NORM ([facility]) ID Date Data Source [id number] 09/06/2020 08:48:00 AM EST NORM ([facility]) Name Value Range Interpretation Code Description Data Jania rce(s) Supporting Document(s) white blood count 5.8 10 4.0-10.0 White Blood Count NORM ([facility]) red blood count 5.59 10 4.30-6.10 Red Blood Count ATHE ([facility]) hemoglobin 16.3 g/dL 13.5-17.5 Hemoglobin NORM ([facility]) mean corpuscular volume 89.1 fL 80.0-96.0 Mean Corpusc ular Volume NORM ([facility]) hematocrit 49.8 % 42.0-52.0 Hematocrit NORM ([facility]) mean corpuscular hemoglobin 29.2 pg 27.0-33.0 Mean Cor puscular Hemoglobin NORM ([facility]) mean corpuscular HGB conc 32.7 g/dL 32.0-36.5 Mean Corpu scular HGB Conc NORM ([facility]) red cell distribution width 11.9 % 11.5-14.5 Red Cell Distribution Width NORM ([facility]) platelet count, automated 269 10 150-450 Platelet C ount, Automated NORM ([facility]) mono % 8.8 % 0.0-5.0 Above high normal [place] % NORM ([facility]) neutrophils % 60.5 % 36.0-66.0 Neutrophils % NORM ( [facility]) lymph % 27.0 % 24.0-44.0 Lymph % NORM ([facility]) eos % 2.4 % 0.0-3.0 Eos % NORM ([facility]) nucleated red blood cell % 0.0 % 0-0 Nucleated Red Blood Cell % NORM ([facility]) baso % 1.0 % 0.0-1.0 Baso % NORM ([facility]) immature granulocyte % 0.3 % 0-3.0 Immature Gran ulocyte % NORM ([facility]) mono # 0.5 10 0.0-0.8 [place] # NORM ([facility]) neutrophils # 3.5 10 1.5-8.5 Neutrophils # NORM ( [facility]) lymph # 1.6 10 1.5-5.0 Lymph # NORM ([facility]) eos # 0.1 10 0.0-0.5 Eos # NORM ([facility]) baso # 0.1 10 0.0-0.2 Baso # NORM ([facility]) ID Date Data Source [id number] 09/06/2020 08:48:00 AM EST [place] ([facility]) Name Value Range Interpretation Code Description Data Jania rce(s) Supporting Document(s) total 25(oh) vitamin D 15.0 NG/mL 30.0-100.0 Below low normal T otal 25(Oh) Vitamin D [place] ([facility]) ID Date Data Source [id number] 09/06/2020 08:48:00 AM EST [facility]) Name Value Range Interpretation Code Description Data Jania rce(s) Supporting Document(s) free T4 0.78 NG/dL 0.76-1.46 Free T4 NORM ([facility]) thyroid stimulating hormone 9.020 uIU/mL 0.358-3.740 Above high no rmal Thyroid Stimulating Hormone [facility]) ID Date Data Source [id number] 09/06/2020 08:48:00 AM EST [facility]) Name Value Range Interpretation Code Description Data Jania rce(s) Supporting Document(s) triglycerides level 145 mg/dL <150 Triglycerides Le matthew NORM ([facility]) non-HDL-C 220 mg/dL Non-hdl-c NORM ([facility]) HDL cholesterol 44 mg/dL >40 HDL Cholesterol ATHE ([facility]) cholesterol level 264 mg/dL <200 Above high normal Cholesterol Level NORM ([facility]) Cholesterol in LDL [Mass/volume] in Serum or Plasma 191 mg/dL <100 Above high normal LDL Cholesterol NORM ([facility]) cholesterol risk ratio <5 Above high normal Choles terol Risk Ratio NORM ([facility]) ID Date Data Source [id number] 09/06/2020 08:48:00 AM EST NORM ([facility]) Name Value Range Interpretation Code Description Data Jania rce(s) Supporting Document(s) blood urea nitrogen 11 mg/dL 7-18 Blood Urea Nitro gen NORM ([facility]) glucose, fasting 82 mg/dL 70-100 Glucose, Fasting AT [facility] ([facility]) creatinine for GFR 1.07 mg/dL 0.70-1.30 Creatinine for GF R NORM ([facility]) sodium level 138 mEq/L 136-145 Sodium Level NORM ([facility]) potassium serum 4.5 mEq/L 3.5-5.1 Potassium Serum ATHE ([facility]) glomerular filtration rate > 60.0 >60 Glomerula r Filtration Rate NORM ([facility]) anion gap 7 mEq/L 8-16 Below low normal Anion Gap NORM ( [facility]) calcium level 9.2 mg/dL 8.5-10.1 Calcium Level NORM ( [facility]) AST/SGOT 20 U/L 7-37 AST/SGOT NORM ([facility]) carbon dioxide level 30 mEq/L 21-32 Carbon Dioxide Level NORM ([facility]) chloride level 101 mEq/L 98-107 Chloride Level NORM ([facility]) bilirubin,total 0.7 mg/dL 0.2-1.0 Bilirubin,total ATHE ([facility]) ALT/SGPT 38 U/L 12-78 ALT/SGPT NORM ([facility]) alkaline phosphatase 79 U/L 45-117 Alkaline Phosph atase NORM ([facility]) total protein 8.0 gm/dL 6.4-8.2 Total Protein NORM ( [facility]) albumin 4.7 gm/dL 3.2-5.2 Albumin NORM ([facility]) albumin/globulin ratio Albumin/globu veda Ratio NORM ([facility]) ID Date Data Source [id number] 09/06/2020 08:48:00 AM EST NORM ([facility]) Name Value Range Interpretation Code Description Data Jania rce(s) Supporting Document(s) white blood count 5.8 10 4.0-10.0 White Blood Count NORM ([facility]) hemoglobin 16.3 g/dL 13.5-17.5 Hemoglobin NORM ([facility]) hematocrit 49.8 % 42.0-52.0 Hematocrit NORM ([facility]) red blood count 5.59 10 4.30-6.10 Red Blood Count ATHE NA ([facility]) mean corpuscular HGB conc 32.7 g/dL 32.0-36.5 Mean Corpu scular HGB Conc NORM ([facility]) mean corpuscular hemoglobin 29.2 pg 27.0-33.0 Mean Cor puscular Hemoglobin NORM ([facility]) mean corpuscular volume 89.1 fL 80.0-96.0 Mean Corpusc ular Volume NORM ([facility]) red cell distribution width 11.9 % 11.5-14.5 Red Cell Distribution Width NORM ([facility]) neutrophils % 60.5 % 36.0-66.0 Neutrophils % NORM ( [facility]) lymph % 27.0 % 24.0-44.0 Lymph % NORM ([facility]) platelet count, automated 269 10 150-450 Platelet C ount, Automated NORM ([facility]) mono % 8.8 % 0.0-5.0 Above high normal [place] % NORM ([facility]) immature granulocyte % 0.3 % 0-3.0 Immature Gran ulocyte % NORM ([facility]) baso % 1.0 % 0.0-1.0 Baso % NORM ([facility]) eos % 2.4 % 0.0-3.0 Eos % NORM ([facility]) mono # 0.5 10 0.0-0.8 [place] # NORM ([facility]) neutrophils # 3.5 10 1.5-8.5 Neutrophils # [place] ( [facility]) nucleated red blood cell % 0.0 % 0-0 Nucleated Red Blood Cell % NORM ([facility]) lymph # 1.6 10 1.5-5.0 Lymph # [place] ([facility]) baso # 0.1 10 0.0-0.2 Baso # NORM ([facility]) eos # 0.1 10 0.0-0.5 Eos # NORM ([facility]) ID Date Data Source [id number] 08/21/2020 12:00:00 AM EST [facility] Name Value Range Interpretation Code Description Data Jania rce(s) Supporting Document(s) SARS coronavirus 2 Ag [facility] This lab was ordered by [facility] and reported by [facility]. Procedure Social History No Information Vital Signs ID Date Data Source UNK Name Value Range Interpretation Code Description Data Source(s) Body height 72 [in_i] 72 [in_i] [place] ([facility]) Body height 72 [in_i] 72 [in_i] [facility] ([facility], [facility]) 6'0" Body mass index (BMI) [Ratio] 22.4 kg/m2 22.4 k g/m2 [facility] ([facility]) Systolic blood pressure 126 mm[Hg] 126 mm[Hg] [facility] Diastolic blood pressure 84 mm[Hg] 84 mm[Hg] [facility] ([facility]) Heart rate 111 /min 111 /min [facility] ([facility]) Respiratory rate 16 /min 16 /min [facility] ( [facility], [facility]) Oxygen saturation in Arterial blood by Pulse oximetry 96 % 96 % [facility] ([facility], [facility]) Body weight 165.00 [lb_av] 165.00 [lb_av] [facility] ([facility], [facility]) Body temperature 99.0 [degF] 99.0 [degF] [facility] ([facility]) Body height 72 [in_i] 72 [in_i] NORM ([facility]) Systolic blood pressure 126 mm[Hg] 126 mm[Hg] A [facility] ([facility] [facility]) Body mass index (BMI) [Ratio] 24.3 kg/m2 24.3 k g/m2 NORM ([facility]) Diastolic blood pressure 84 mm[Hg] 84 mm[Hg] NORM ([facility]) Diastolic blood pressure 95 mm[Hg] 95 mm[Hg] NORM ([facility]) Body weight 2864 [oz_av] 2864 [oz_av] NORM ([facility]) Systolic blood pressure 153 mm[Hg] 153 mm[Hg] A [facility] ([facility]) Systolic blood pressure 153 mm[Hg] 153 mm[Hg] A [facility] ([facility]) Body mass index (BMI) [Ratio] 24.3 kg/m2 24.3 k g/m2 NORM ([facility]) Body weight 2864 [oz_av] 2864 [oz_av] NORM ([facility]) Systolic blood pressure 126 mm[Hg] 126 mm[Hg] A [facility] ([facility]) Diastolic blood pressure 84 mm[Hg] 84 mm[Hg] NORM ([facility]) Diastolic blood pressure 95 mm[Hg] 95 mm[Hg] NORM ([facility]) Body height 72 [in_i] 72 [in_i] NORM ([facility]) Diastolic blood pressure 84 mm[Hg] 84 mm[Hg] NORM ([facility]) Diastolic blood pressure 95 mm[Hg] 95 mm[Hg] NORM ([facility]) Systolic blood pressure 153 mm[Hg] 153 mm[Hg] [facility] Body height 72 [in_i] 72 [in_i] NORM ([facility]) Body weight 2864 [oz_av] 2864 [oz_av] NORM ([facility]) Body mass index (BMI) [Ratio] 24.3 kg/m2 24.3 k g/m2 NORM ([facility]) Systolic blood pressure 126 mm[Hg] 126 mm[Hg] [facility]) Diastolic blood pressure 76 mm[Hg] 76 mm[Hg] NORM ([facility]) Body height 72 [in_i] 72 [in_i] NORM ([facility]) Body mass index (BMI) [Ratio] 25.1 kg/m2 25.1 k g/m2 NORM ([facility]) Systolic blood pressure 121 mm[Hg] 121 mm[Hg] [facility] Body weight 2966.4 [oz_av] 2966.4 [oz_av] ATHEN A ([facility]) Diastolic blood pressure 76 mm[Hg] 76 mm[Hg] NORM ([facility]) Body height 72 [in_i] 72 [in_i] NORM ([facility]) Body mass index (BMI) [Ratio] 25.1 kg/m2 25.1 k g/m2 NORM ([facility]) Systolic blood pressure 121 mm[Hg] 121 mm[Hg] A THENA ([facility]) Body weight 2966.4 [oz_av] 2966.4 [oz_av] ATHEN A ([facility]) Diastolic blood pressure 76 mm[Hg] 76 mm[Hg] NORM ([facility]) Body weight 2966.4 [oz_av] 2966.4 [oz_av] ATHEN A ([facility]) Body height 72 [in_i] 72 [in_i] NORM ([facility]) Body mass index (BMI) [Ratio] 25.1 kg/m2 25.1 k g/m2 NORM ([facility]) Systolic blood pressure 121 mm[Hg] 121 mm[Hg] [facility]) Diastolic blood pressure 76 mm[Hg] 76 mm[Hg] NORM ([facility]) Body height 72 [in_i] 72 [in_i] NORM ([facility]) Body mass index (BMI) [Ratio] 25.1 kg/m2 25.1 k g/m2 NORM ([facility]) Systolic blood pressure 121 mm[Hg] 121 mm[Hg] A THENA ([facility]) Body weight 2966.4 [oz_av] 2966.4 [oz_av] ATHEN A ([facility]) Oxygen saturation in Arterial blood by Pulse oximetry 97 % 97 % MEDENT ([facility], [facility]) Respiratory rate 16 /min 16 /min MEDENT ( [facility], [facility]) Body weight 175.00 [lb_av] 175.00 [lb_av] MEDEN T ([facility], [facility]) Body height 72 [in_i] 72 [in_i] MEDENT ([facility], [facility]) 6'0" Body temperature 98.1 [degF] 98.1 [degF] MEDENT ([facility], [facility]) Body mass index (BMI) [Ratio] 23.7 kg/m2 23.7 k g/m2 MEDENT ([facility], [facility]) Systolic blood pressure 138 mm[Hg] 138 mm[Hg] M EDENT ([facility], [facility]) Diastolic blood pressure 94 mm[Hg] 94 mm[Hg] MEDENT ([facility], [facility]) Heart rate 73 /min 73 /min MEDENT ([facility], [facility]) Diastolic blood pressure 80 mm[Hg] 80 mm[Hg] NORM ([facility]) Body height 72 [in_i] 72 [in_i] NORM ([facility]) Body weight 2949 [oz_av] 2949 [oz_av] NORM ([facility]) Systolic blood pressure 131 mm[Hg] 131 mm[Hg] A THENA ([facility]) Body mass index (BMI) [Ratio] 25 kg/m2 25 kg/ m2 NORM ([facility]) Diastolic blood pressure 80 mm[Hg] 80 mm[Hg] NORM ([facility]) Body height 72 [in_i] 72 [in_i] NORM ([facility]) Body mass index (BMI) [Ratio] 25 kg/m2 25 kg/ m2 NORM ([facility]) Systolic blood pressure 131 mm[Hg] 131 mm[Hg] A [facility] ([facility]) Body weight 2949 [oz_av] 2949 [oz_av] NORM ([facility]) Body weight 2949 [oz_av] 2949 [oz_av] NORM ([facility]) Systolic blood pressure 131 mm[Hg] 131 mm[Hg] A [facility] ([facility]) Body mass index (BMI) [Ratio] 25 kg/m2 25 kg/ m2 NORM ([facility]) Body height 72 [in_i] 72 [in_i] NORM ([facility]) Diastolic blood pressure 80 mm[Hg] 80 mm[Hg] NORM ([facility]) Diastolic blood pressure 80 mm[Hg] 80 mm[Hg] NORM ([facility]) Body height 72 [in_i] 72 [in_i] NORM ([facility]) Body mass index (BMI) [Ratio] 25 kg/m2 25 kg/ m2 NORM ([facility]) Systolic blood pressure 131 mm[Hg] 131 mm[Hg] [facility]) Body weight 2949 [oz_av] 2949 [oz_av] NORM ([facility]) Diastolic blood pressure 80 mm[Hg] 80 mm[Hg] NORM ([facility]) Body height 72 [in_i] 72 [in_i] NORM ([facility]) Body mass index (BMI) [Ratio] 25 kg/m2 25 kg/ m2 NORM ([facility]) Systolic blood pressure 131 mm[Hg] 131 mm[Hg] A [facility] ([facility]) Body weight 2949 [oz_av] 2949 [oz_av] NORM ([facility]) Diastolic blood pressure 80 mm[Hg] 80 mm[Hg] NORM ([facility]) Body height 72 [in_i] 72 [in_i] NORM ([facility]) Body mass index (BMI) [Ratio] 25 kg/m2 25 kg/ m2 NORM ([facility]) Systolic blood pressure 131 mm[Hg] 131 mm[Hg] A THENA ([facility]) Body weight 2949 [oz_av] 2949 [oz_av] NORM ([facility]) Systolic blood pressure 140 mm[Hg] 140 mm[Hg] M EDENT ([facility], ) Diastolic blood pressure 70 mm[Hg] 70 mm[Hg] MEDENT ([facility] [place]) Body height 72 [in_i] 72 [[facility]_i] [facility] 6'0" Body weight 176.00 [lb_av] 176.00 [lb_av] MEDEN T ([facility], ) Body mass index (BMI) [Ratio] 23.9 kg/m2 23.9 k g/m2 [facility] [place] Christopher body weight 178 [lb_av] 178 [lb_av] MEDEN T ([facility], ) Body weight 79.834 kg 79.834 kg [facility] ([facility]) Body surface area Derived from formula 2.02 m2 2.02 m2 [facility] ([facility] [place]) Body mass index (BMI) [Ratio] 24.7 kg/m2 24.7 k g/m2 NORM ([facility]) Diastolic blood pressure 86 mm[Hg] 86 mm[Hg] NORM ([facility]) Body height 72 [in_i] 72 [in_i] NORM ([facility]) Systolic blood pressure 150 mm[Hg] 150 mm[Hg] A THENA ([facility]) Body weight 2918.4 [oz_av] 2918.4 [oz_av] ATHEN A ([facility]) Diastolic blood pressure 86 mm[Hg] 86 mm[Hg] NORM ([facility]) Body height 72 [in_i] 72 [in_i] NORM ([facility]) Body mass index (BMI) [Ratio] 24.7 kg/m2 24.7 k g/m2 NORM ([facility]) Systolic blood pressure 150 mm[Hg] 150 mm[Hg] A [facility]) Body weight 2918.4 [oz_av] 2918.4 [oz_av] ATHEN A ([facility]) Diastolic blood pressure 86 mm[Hg] 86 mm[Hg] NORM ([facility]) Body height 72 [in_i] 72 [in_i] NORM ([facility]) Body mass index (BMI) [Ratio] 24.7 kg/m2 24.7 k g/m2 NORM ([facility]) Systolic blood pressure 150 mm[Hg] 150 mm[Hg] A [facility] ([facility]) Body weight 2918.4 [oz_av] 2918.4 [oz_av] ATHEN A ([facility]) Diastolic blood pressure 86 mm[Hg] 86 mm[Hg] NORM ([facility]) Body height 72 [in_i] 72 [in_i] NORM ([facility]) Body mass index (BMI) [Ratio] 24.7 kg/m2 24.7 k g/m2 NORM ([facility]) Systolic blood pressure 150 mm[Hg] 150 mm[Hg] [facility]) Body weight 2918.4 [oz_av] 2918.4 [oz_av] ATHEN A ([facility]) Body height 72 [in_i] 72 [in_i] NORM ([facility]) Body mass index (BMI) [Ratio] 24.7 kg/m2 24.7 k g/m2 NORM ([facility]) Systolic blood pressure 150 mm[Hg] 150 mm[Hg] [facility]) Body weight 2918.4 [oz_av] 2918.4 [oz_av] ATHEN A ([facility]) Diastolic blood pressure 86 mm[Hg] 86 mm[Hg] NORM ([facility]) Diastolic blood pressure 86 mm[Hg] 86 mm[Hg] NORM ([facility]) Body height 72 [in_i] 72 [in_i] NORM ([facility]) Body mass index (BMI) [Ratio] 24.7 kg/m2 24.7 k g/m2 NORM ([facility]) Systolic blood pressure 150 mm[Hg] 150 mm[Hg] A ABBYA ([facility]) Body weight 2918.4 [oz_av] 2918.4 [oz_av] ATHEN A ([facility]) Diastolic blood pressure 86 mm[Hg] 86 mm[Hg] NORM ([facility]) Body height 72 [in_i] 72 [in_i] NORM ([facility]) Body mass index (BMI) [Ratio] 24.7 kg/m2 24.7 k g/m2 NORM ([facility]) Systolic blood pressure 150 mm[Hg] 150 mm[Hg] A TYLER ([facility]) Body weight 2918.4 [oz_av] 2918.4 [oz_av] ATHEN A ([facility]) Diastolic blood pressure 86 mm[Hg] 86 mm[Hg] NORM ([facility]) Body height 72 [in_i] 72 [in_i] NORM ([facility]) Body mass index (BMI) [Ratio] 24.7 kg/m2 24.7 k g/m2 NORM ([facility]) Systolic blood pressure 150 mm[Hg] 150 mm[Hg] A TYLER ([facility]) Body weight 2918.4 [oz_av] 2918.4 [oz_av] ATHEN A ([facility]) Diastolic blood pressure 86 mm[Hg] 86 mm[Hg] NORM ([facility]) Body height 72 [in_i] 72 [in_i] NORM ([facility]) Body mass index (BMI) [Ratio] 24.7 kg/m2 24.7 k g/m2 NORM ([facility]) Systolic blood pressure 150 mm[Hg] 150 mm[Hg] [facility]) Body weight 2918.4 [oz_av] 2918.4 [oz_av] ATHEN A ([facility]) Body height 72 [in_i] 72 [in_i] NORM ([facility]) Body height 72 [in_i] 72 [in_i] NORM ([facility]) Body height 72 [in_i] 72 [in_i] NORM ([facility]) Body height 72 [in_i] 72 [in_i] NORM ([facility]) Body height 72 [in_i] 72 [in_i] NORM ([facility]) Body height 72 [in_i] 72 [in_i] NORM ([facility]) Body height 72 [in_i] 72 [in_i] NORM ([facility]) Body height 72 [in_i] 72 [in_i] NORM ([facility]) Body height 72 [in_i] 72 [in_i] NORM ([facility]) Body height 72 [in_i] 72 [in_i] NORM ([facility]) Body height 72 [in_i] 72 [in_i] NORM ([facility]) Body height 72 [in_i] 72 [in_i] NORM ([facility]) Body height 72 [in_i] 72 [in_i] NORM ([facility]) Body height 72 [in_i] 72 [in_i] NORM ([facility]) Body height 72 [in_i] 72 [in_i] NORM ([facility]) Body height 72 [in_i] 72 [in_i] NORM ([facility]) Body height 72 [in_i] 72 [in_i] NORM ([facility]) Body height 72 [in_i] 72 [in_i] NORM ([facility]) Body height 72 [in_i] 72 [in_i] NORM ([facility]) Body height 72 [in_i] 72 [in_i] NORM ([facility]) Body height 72 [in_i] 72 [in_i] NORM ([facility]) Body height 72 [in_i] 72 [in_i] NORM ([facility]) Body height 72 [in_i] 72 [in_i] NORM ([facility]) Systolic blood pressure 142 mm[Hg] 142 mm[Hg] A THENA ([facility]) Body weight 2969.6 [oz_av] 2969.6 [oz_av] ATHEN A ([facility]) Diastolic blood pressure 82 mm[Hg] 82 mm[Hg] NORM ([facility]) Body height 72 [in_i] 72 [in_i] NORM ([facility]) Body mass index (BMI) [Ratio] 25.2 kg/m2 25.2 k g/m2 NORM ([facility]) Body mass index (BMI) [Ratio] 25.2 kg/m2 25.2 k g/m2 NORM ([facility]) Body weight 2969.6 [oz_av] 2969.6 [oz_av] ATHEN A ([facility]) Diastolic blood pressure 82 mm[Hg] 82 mm[Hg] NORM ([facility]) Body height 72 [in_i] 72 [in_i] NORM ([facility]) Systolic blood pressure 142 mm[Hg] 142 mm[Hg] [facility]) Diastolic blood pressure 82 mm[Hg] 82 mm[Hg] NORM ([facility]) Body height 72 [in_i] 72 [in_i] NORM ([facility]) Body mass index (BMI) [Ratio] 25.2 kg/m2 25.2 k g/m2 NORM ([facility]) Systolic blood pressure 142 mm[Hg] 142 mm[Hg] A THENA ([facility]) Body weight 2969.6 [oz_av] 2969.6 [oz_av] ATHEN A ([facility]) Diastolic blood pressure 82 mm[Hg] 82 mm[Hg] NORM ([facility]) Body height 72 [in_i] 72 [in_i] NORM ([facility]) Body mass index (BMI) [Ratio] 25.2 kg/m2 25.2 k g/m2 NORM ([facility]) Systolic blood pressure 142 mm[Hg] 142 mm[Hg] A THENA ([facility]) Body weight 2969.6 [oz_av] 2969.6 [oz_av] ATHEN A ([facility]) Diastolic blood pressure 82 mm[Hg] 82 mm[Hg] NORM ([facility]) Body height 72 [in_i] 72 [in_i] NORM ([facility]) Body mass index (BMI) [Ratio] 25.2 kg/m2 25.2 k g/m2 NORM ([facility]) Systolic blood pressure 142 mm[Hg] 142 mm[Hg] [facility]) Body weight 2969.6 [oz_av] 2969.6 [oz_av] ATHEN A ([facility]) Diastolic blood pressure 82 mm[Hg] 82 mm[Hg] NORM ([facility]) Body height 72 [in_i] 72 [in_i] NORM ([facility]) Body mass index (BMI) [Ratio] 25.2 kg/m2 25.2 k g/m2 NORM ([facility]) Systolic blood pressure 142 mm[Hg] 142 mm[Hg] [facility]) Body weight 2969.6 [oz_av] 2969.6 [oz_av] ATHEN A ([facility]) Diastolic blood pressure 82 mm[Hg] 82 mm[Hg] NORM ([facility]) Body height 72 [in_i] 72 [in_i] NORM ([facility]) Body mass index (BMI) [Ratio] 25.2 kg/m2 25.2 k g/m2 NORM ([facility]) Systolic blood pressure 142 mm[Hg] 142 mm[Hg] A THENA ([facility]) Body weight 2969.6 [oz_av] 2969.6 [oz_av] ATHEN A ([facility]) Diastolic blood pressure 82 mm[Hg] 82 mm[Hg] NORM ([facility]) Body height 72 [in_i] 72 [in_i] NORM ([facility]) Body mass index (BMI) [Ratio] 25.2 kg/m2 25.2 k g/m2 NORM ([facility]) Systolic blood pressure 142 mm[Hg] 142 mm[Hg] A [facility] ([facility]) Body weight 2969.6 [oz_av] 2969.6 [oz_av] ATHEN A ([facility]) Diastolic blood pressure 82 mm[Hg] 82 mm[Hg] NORM ([facility]) Body height 72 [in_i] 72 [in_i] NORM ([facility]) Body mass index (BMI) [Ratio] 25.2 kg/m2 25.2 k g/m2 NORM ([facility]) Systolic blood pressure 142 mm[Hg] 142 mm[Hg] [facility]) Body weight 2969.6 [oz_av] 2969.6 [oz_av] ATHEN A ([facility]) Diastolic blood pressure 82 mm[Hg] 82 mm[Hg] NORM ([facility]) Body height 72 [in_i] 72 [in_i] NORM ([facility]) Body mass index (BMI) [Ratio] 25.2 kg/m2 25.2 k g/m2 NORM ([facility]) Systolic blood pressure 142 mm[Hg] 142 mm[Hg] [facility]) Body weight 2969.6 [oz_av] 2969.6 [oz_av] ATHEN A ([facility]) Diastolic blood pressure 82 mm[Hg] 82 mm[Hg] NORM ([facility]) Body height 72 [in_i] 72 [in_i] NORM ([facility]) Body mass index (BMI) [Ratio] 25.2 kg/m2 25.2 k g/m2 NORM ([facility]) Systolic blood pressure 142 mm[Hg] 142 mm[Hg] [facility]) Body weight 2969.6 [oz_av] 2969.6 [oz_av] ATHEN A ([facility]) Body height 72 [in_i] 72 [in_i] NORM ([facility]) Body mass index (BMI) [Ratio] 25.2 kg/m2 25.2 k g/m2 NORM ([facility]) Systolic blood pressure 142 mm[Hg] 142 mm[Hg] [facility]) Body weight 2969.6 [oz_av] 2969.6 [oz_av] ATHEN A ([facility]) Diastolic blood pressure 82 mm[Hg] 82 mm[Hg] NORM ([facility]) Diastolic blood pressure 82 mm[Hg] 82 mm[Hg] NORM ([facility]) Body height 72 [in_i] 72 [in_i] NORM ([facility]) Body mass index (BMI) [Ratio] 25.2 kg/m2 25.2 k g/m2 NORM ([facility]) Systolic blood pressure 142 mm[Hg] 142 mm[Hg] A THENA ([facility]) Body weight 2969.6 [oz_av] 2969.6 [oz_av] ATHEN A ([facility]) Diastolic blood pressure 82 mm[Hg] 82 mm[Hg] NORM ([facility]) Body height 72 [in_i] 72 [in_i] NORM ([facility]) Body mass index (BMI) [Ratio] 25.2 kg/m2 25.2 k g/m2 NORM ([facility]) Systolic blood pressure 142 mm[Hg] 142 mm[Hg] A THENA ([facility]) Body weight 2969.6 [oz_av] 2969.6 [oz_av] ATHEN A ([facility]) Body height 72 [in_i] 72 [in_i] NORM ([facility]) Body height 72 [in_i] 72 [in_i] NOMR ([facility]) Body height 72 [in_i] 72 [in_i] NORM ([facility]) Body height 72 [in_i] 72 [in_i] NORM ([facility]) Body height 72 [in_i] 72 [in_i] NORM ([facility]) Body height 72 [in_i] 72 [in_i] NORM ([facility]) Body height 72 [in_i] 72 [in_i] NORM ([facility]) Body height 72 [in_i] 72 [in_i] NORM ([facility]) Body height 72 [in_i] 72 [in_i] NORM ([facility]) Body height 72 [in_i] 72 [in_i] NORM ([facility]) Body height 72 [in_i] 72 [in_i] NORM ([facility]) Body height 72 [in_i] 72 [in_i] NORM ([facility]) Body height 72 [in_i] 72 [in_i] NORM ([facility]) Body height 72 [in_i] 72 [in_i] NORM ([facility]) Body height 72 [in_i] 72 [in_i] NORM ([facility]) Body weight 165.00 [lb_av] 165.00 [lb_av] MEDEN T ([facility], [facility]) Systolic blood pressure 129 mm[Hg] 129 mm[Hg] M EDENT ([facility], [facility]) Diastolic blood pressure 93 mm[Hg] 93 mm[Hg] MEDENT ([facility]) Heart rate 88 /min 88 /min MEDENT ([facility], [facility]) Respiratory rate 16 /min 16 /min MEDENT ( [facility]) Oxygen saturation in Arterial blood by Pulse oximetry 99 % 99 % MEDENT ([facility]) Body temperature 99.1 [degF] 99.1 [degF] MEDENT ([facility]) Patient Treatment Plan of Care Planned Activity Planned Date Details Description Data Source (s) cetirizine hydrochloride 10 MG Oral Tablet 08/29/2020 12:00:[address] [facility] ([facility]) cetirizine hydrochloride 10 MG Oral Tablet 08/29/2020 12:00:[address] [facility] ([facility]) POLYETHYLENE GLYCOL 3350 142 MG/ML Oral Solution [Miralax] NORM ([facility]) Ibuprofen 800 MG Oral Tablet NORM ([facility]) Levothyroxine Sodium 0.05 MG Oral Tablet [Euthyrox] NORM ([facility]) Levothyroxine Sodium 0.025 MG Oral Tablet [Euthyrox] NORM ([facility]) Clindamycin 300 MG Oral Capsule NORM ([facility]) cefdinir 300 MG Oral Capsule NORM ([facility]) Azithromycin 250 MG Oral Tablet NORM ([facility]) POLYETHYLENE GLYCOL 3350 142 MG/ML Oral Solution [Miralax] NORM ([facility]) Ibuprofen 800 MG Oral Tablet NORM ([facility]) Levothyroxine Sodium 0.05 MG Oral Tablet [Euthyrox] NORM ([facility]) Levothyroxine Sodium 0.025 MG Oral Tablet [Euthyrox] NORM ([facility]) Clindamycin 300 MG Oral Capsule NORM ([facility]) Azithromycin 250 MG Oral Tablet NORM ([facility]) POLYETHYLENE GLYCOL 3350 142 MG/ML Oral Solution [Miralax] NORM ([facility] [facility]) Ibuprofen 800 MG Oral Tablet NORM ([facility]) Levothyroxine Sodium 0.05 MG Oral Tablet [Euthyrox] NORM ([facility]) Levothyroxine Sodium 0.025 MG Oral Tablet [Euthyrox] NORM ([facility]) Clindamycin 300 MG Oral Capsule NORM ([facility]) Azithromycin 250 MG Oral Tablet NORM ([facility]) POLYETHYLENE GLYCOL 3350 142 MG/ML Oral Solution [Miralax] NORM ([facility]) Ibuprofen 800 MG Oral Tablet NORM ([facility]) Levothyroxine Sodium 0.05 MG Oral Tablet [Euthyrox] NORM ([facility]) Levothyroxine Sodium 0.025 MG Oral Tablet [Euthyrox] NORM ([facility]) d3 50 mcg (2000 ut) caps AT [facility] ([facility]) Clindamycin 300 MG Oral Capsule NORM ([facility]) Azithromycin 250 MG Oral Tablet NORM ([facility] Ibuprofen 800 MG Oral Tablet NORM ([facility]) Azithromycin 250 MG Oral Tablet NORM ([facility]) Ibuprofen 800 MG Oral Tablet NORM ([facility]) d3 50 mcg (2000 ut) caps AT [facility] ([facility]) Clindamycin 300 MG Oral Capsule NORM ([facility]) Azithromycin 250 MG Oral Tablet NORM ([facility] Ibuprofen 800 MG Oral Tablet NORM ([facility]) Clindamycin 300 MG Oral Capsule NORM ([facility]) Azithromycin 250 MG Oral Tablet NORM ([facility]) Ibuprofen 800 MG Oral Tablet NORM ([facility]) Clindamycin 300 MG Oral Capsule NORM ([facility] Azithromycin 250 MG Oral Tablet NORM ([facility]) Ibuprofen 800 MG Oral Tablet NORM ([facility]) Clindamycin 300 MG Oral Capsule NORM ([facility]) Azithromycin 250 MG Oral Tablet NORM ([facility]) Ibuprofen 800 MG Oral Tablet NORM ([facility]) Clindamycin 300 MG Oral Capsule NORM ([facility] Azithromycin 250 MG Oral Tablet NORM ([facility]) Ibuprofen 800 MG Oral Tablet NORM ([facility]) Clindamycin 300 MG Oral Capsule NORM ([facility]) Azithromycin 250 MG Oral Tablet NORM ([facility]) Ibuprofen 800 MG Oral Tablet NORM ([facility]) fluticasone 113 mcg-salmeterol 14 mcg/actuation breath activated po wdr NORM ([facility]) Clindamycin 300 MG Oral Capsule NORM ([facility]) Azithromycin 250 MG Oral Tablet NORM ([facility]) Ibuprofen 800 MG Oral Tablet NORM ([facility]) Levothyroxine Sodium 0.025 MG Oral Tablet [Euthyrox] NORM ([facility]) Clindamycin 300 MG Oral Capsule NORM ([facility]) Ibuprofen 800 MG Oral Tablet NORM ([facility]) Levothyroxine Sodium 0.025 MG Oral Tablet [Euthyrox] NORM ([facility]) Clindamycin 300 MG Oral Capsule NORM ([facility]) albuterol sulfate HFA 90 mcg/actuation aerosol inhaler NORM ([facility]) Ibuprofen 800 MG Oral Tablet NORM ([facility]) Levothyroxine Sodium 0.025 MG Oral Tablet [Euthyrox] NORM ([facility]) Clindamycin 300 MG Oral Capsule NORM ([facility]) albuterol sulfate HFA 90 mcg/actuation aerosol inhaler NORM ([facility])
[2021-08-04] MEDS ORDERED: NS 1,000 ML IV ONE (14:25)
[2021-08-04 14:56] LABS: BASO % 0.4 % (0.0-1.0); EOS # 0.1 10^3/uL (0.0-0.5); EOS % 0.9 % (0.0-3.0); HEMOGLOBIN 16.2 g/dl (13.5-17.5); LYMPH # 1.3 10^3/uL (1.5-5.0); LYMPH % 12.4 % (24.0-44.0); MEAN CORPUSCULAR HEMOGLOBIN 29.5 pg (27.0-33.0); MEAN CORPUSCULAR HGB CONC 34.5 g/dl (32.0-36.5); MEAN CORPUSCULAR VOLUME 85.6 fl (80.0-96.0); MONO # 1.4 10^3/uL (0.0-0.8); MONO % 13.3 % (2.0-8.0); NEUTROPHILS # 7.7 10^3/uL (1.5-8.5); NEUTROPHILS % 71.5 % (36.0-66.0); PLATELET COUNT, AUTOMATED 626 10^3/uL (150-450); RED BLOOD COUNT 5.49 10^6/uL (4.30-6.10); WHITE BLOOD COUNT 10.7 10^3/uL (4.0-10.0)
[2021-08-04] MEDS: ALBUTEROL 90 MCG/ACT 8GM HFA INHALER INH SCH ×2 (15:06→15:12)
--- OUTSIDE RECORDS SUMMARY | 2021-08-04 15:16 | CCD ---
Author Author [facility] Organization [facility] Address Unknown Phone Unavailable Care Team Providers Care Community Health Education Coordinator Name Role Phone Davis, Sarah LAWN CARE WORKER Unavailable Unavailable Davis, Sarah LAWN CARE WORKER Unavailable Unavailable Davis, Sarah LAWN CARE WORKER Unavailable Unavailable Davis, Sarah LAWN CARE WORKER Unavailable Unavailable Davis, Sarah LAWN CARE WORKER Unavailable Unavailable Davis, Sarah LAWN CARE WORKER Unavailable Unavailable Davis, Sarah LAWN CARE WORKER Unavailable Unavailable Davis, Sarah LAWN CARE WORKER Unavailable Unavailable Davis, Sarah LAWN CARE WORKER Unavailable Unavailable Davis, Sarah LAWN CARE WORKER Unavailable Unavailable Davis, Sarah LAWN CARE WORKER Unavailable Unavailable Davis, Sarah LAWN CARE WORKER Unavailable Unavailable Davis, Sarah LAWN CARE WORKER Unavailable Unavailable SHRESTHA, AFSHAN BRIAN RPA-C Unavailable [...] Unavailable Unavailable CRISSY, A. FELICIANO BETHANIE Unavailable [phone] RCISSY, A. STUNT PERFORMER BETHANIE Unavailable [phone] CRISSY, A. STUNT PERFORMER BETHANIE Unavailable [phone] CRISSY, A. STUNT PERFORMER BETHANIE Unavailable [phone] CRISSY, A. STUNT PERFORMER BETHANIE Unavailable [phone] CRISSY, A. STUNT PERFORMER BETHANIE Unavailable [phone] CRISSY, A. STUNT PERFORMER BETHANIE Unavailable [phone] CRISSY, A. STUNT PERFORMER BETHANIE Unavailable [phone] CRISSY, A. STUNT PERFORMER BETHANIE Unavailable [phone] CRISSY, A. STUNT PERFORMER BETHANIE Unavailable [phone] CRISSY, A. STUNT PERFORMER BETHANIE Unavailable [phone] CRISSY, A. STUNT PERFORMER BETHANIE Unavailable [phone] CRISSY, A. STUNT PERFORMER BETHANIE Unavailable [phone] CRISSY, A. STUNT PERFORMER BETHANIE Unavailable [phone] CRISSY, A. STUNT PERFORMER BETHANIE Unavailable [phone] CRISSY, A. STUNT PERFORMER BETHANIE Unavailable [phone] Tee CLIFTON MD Unavailable Unavailable Tee CLIFTON MD Unavailable Unavailable Tee CLIFTON MD Unavailable Unavailable Tee CLIFTON MD Unavailable Unavailable Tee CLIFTON MD Unavailable Unavailable Tee CLITFON MD Unavailable Unavailable Tee CLIFTON MD Unavailable [...] NATALYAAlba GAUTHIER MD Unavailable Unavailable NATALYA O MELODY HARRINGTON Unavailable Unavailable NATALYA O MELODY HARRINGTON Unavailable Unavailable NATALAY O MELODY HARRINGTON Unavailable Unavailable NATALYA O [...] M Chiqui PA Unavailable Unavailable Scordo, M Chiqiu PA Unavailable Unavailable Scordo, M Chiqui PA [...] is protected by Article 27-F of the [facility] Public Health law. If you continue you may have access to information: Regarding HIV / AIDS; Provided by facilities licensed or operated by the [facility] Office of Mental Health; or Provided by the [facility] Office for People With Developmental Disabilities. If such information is present, then the following [facility] mandated warning applies: This information has [...] EST - 08/04/2021 12:19:50 PM EST DocuTap ([facility] ) Brian Shrestha RPA-C: [address], [place] [address], Ph. Attender: BRIAN SHRESTHA RPA-C [facility] 07/22/2021 12:00:00 AM EST NORM ([facility]) Outpatient Attender: Sarah odonnell 07/20/2021 09:25:00 AM EST MEDENT ([facility], [facility]) Outpatient Attender: Manjeet MACDONALD 05/24 09:01:45 PM EDT - 06/10/2021 09:22:55 PM EDT DocuTap ([facility] ) Brian Shrestha RPA-C: [address], [place] [address], Ph. Attender: BRIAN KENYONC [facility] 06/03/2021 12:00:00 AM EDT NORM ([facility]) Brian Shrestha RPA-C: [address], [place] [address], Ph. Attender: BRIAN SHRESTHA RPA-C [facility] 06/03/2021 12:00:00 AM EDT NORM ([facility]) Brian Shrestha RPA-C: [address], [place] [address], Ph. Attender: BRIAN SHRESTHA RPA-C [facility] 04/16/2021 12:00:00 AM EDT NORM ([facility]) Brian Shrestha RPA-C: [address], [place] [address], Ph. Attender: BRIAN SHRESTHA RPA-C [facility] Medical 04/16/2021 12:00:00 AM EDT NORM ([facility]) Brian Shrestha, RPA-C: [address], [place] [address], Ph. Attender: BRIAN SHRESTHA RPA-C [facility] 04/16/2021 12:00:00 AM EDT NORM ([facility]) Brian Shrestha, RPA-C: [address], [place] [address], Ph. Attender: BRIAN SHRESTHA RPA-C [facility] 04/02/2021 12:00:00 AM EDT NORM ([facility]) Brian Shrestha, RPA-C: [address], [place] [address], Ph. Attender: BRIAN SHRESTHA RPA-C [facility] 04/02/2021 12:00:00 AM EDT NORM ([facility]) Brian Shrestha, RPA-C: [address], [place] [address], Ph. Attender: BRIAN SHRESTHA RPA-C [facility] 04/02/2021 12:00:00 AM EDT NORM ([facility]) Brian Shrestha, RPA-C: [address], [place] [address], Ph. Attender: BRIAN SHRESTHA RPA-C [facility] 04/02/2021 12:00:00 AM EDT NORM ([facility]) Brian Shrestha RPA-C: [address], [place] [address], Ph. Attender: BRIAN SHRESTHA RPA-C [facility] 03/11/2021 12:00:00 AM EDT NORM ([facility]) Brian Shrestha RPA-C: [address], [place] [address], Ph. Attender: BRIAN SHRESTHA RPA-C [facility] 03/11/2021 12:00:00 AM EDT NORM ([facility]) Brian Shrestha RPA-C: [address], [place] [address], Ph. Attender: BRIAN SHRESTHA RPA-C [facility] 03/11/2021 12:00:00 AM EDT NORM ([facility]) Brian Shrestha RPA-C: [address], [place] [address], Ph. Attender: BRIAN SHRESTHA RPA-C [facility] 03/11/2021 12:00:00 AM EDT NORM ([facility]) Brian Shrestha RPA-C: [address], [place] [address], Ph. Attender: BRIAN SHRESTHA RPA-C [facility] 03/11/2021 12:00:00 AM EDT NORM ([facility]) Outpatient Attender: Sarah odonnell 03/05/2021 03:35:00 PM EDT MEDENT ([facility], [facility]) Outpatient Attender: ROSEMARIE CLIFTON MD 03/01 03:14:16 PM EDT - 03/01/2021 04:34:40 PM EDT DocuTap ([facility] ) Brian Shrestha RPA-C: [address], [place] [address], Ph. Attender: BRIAN SHRESTHA RPA-C [facility] 01/15/2021 12:00:00 AM EDT NORM ([facility]) Brian Shrestha RPA-C: [address], [place] [address], Ph. Attender: BRIAN SHRESTHA RPA-C [facility] 01/15/2021 12:00:00 AM EDT NORM ([facility]) Brian Shrestha RPA-C: [address], [place] [address], Ph. Attender: BRIAN KENYONC [facility] 01/15/2021 12:00:00 AM EDT NORM ([facility]) Brian Shrestha RPA-C: [address], [place] [address], Ph. Attender: BRIAN SHRESTHA RPA-C [facility] 01/15/2021 12:00:00 AM EDT NORM ([facility]) Brian Shrestha RPA-C: [address], [place] [address], Ph. Attender: BRIAN KENYONC [facility] 01/15/2021 12:00:00 AM EDT NORM ([facility]) VALORIE Watts: [address], [place] [address], Ph. Attender: BRIAN EUGENE [facility] 01/15/2021 12:00:00 AM EDT NORM ([facility]) Marielos Gonzales MD: [address], [place] [address], Ph. Attender: Marielos Gonzales [facility] Medical 01/08/2021 12:00:00 AM EDT ROCHELLE ([facility]) Marielos Gonzales MD: [address], [place] [address], Ph. Attender: Marielos Gonzales [facility] Medical 01/08/2021 12:00:00 AM EDT NORM ([facility]) Marielos Gonzales MD: [address], [place] [address], Ph. Attender: Marielos Gonzales [facility] Medical 01/08/2021 12:00:00 AM EDT NORM ([facility]) Marielos Gonzales MD: [address], [place] [address], Ph. Attender: Marielos Gonzales [facility] Medical 01/08/2021 12:00:00 AM EDT NORM ([facility]) Marielos Gonzales MD: [address], [place] [address], Ph. Attender: Marielos Gonzales [facility] Medical 01/08/2021 12:00:00 AM EDT NORM ([facility]) Marielos Gonzales MD: [address], [place] [address], Ph. Attender: Marielos Gonzales [facility] Medical 01/08/2021 12:00:00 AM EDT NORM ([facility]) Marielos Gonzales MD: [address], [place] [address], Ph. Attender: Marielos Gonzales [facility] Medical 01/08/2021 12:00:00 AM EDT NORM ([facility]) Outpatient Attender: MELODY Boone/Ananda/Nam/Celi indl 11/07/2020 01:00:00 PM EDT MEDTONY ([facility]) KOSTAS MendiolaC: [address], [place] [address], Ph. Attender: SHEREEN LAN [facility] Medical 10/26/2020 12:00:00 AM EST NORM ([facility]) KOSTAS MendiolaC: [address], [place] [address], Ph. Attender: SHEREEN LAN [facility] Medical 10/26/2020 12:00:00 AM EST NORM ([facility]) KOSTAS MendiolaC: [address], [place] [address], Ph. Attender: SHEREEN LAN [facility] Medical 10/26/2020 12:00:00 AM EST NORM ([facility]) Shereen Lan RPA-C: [address], [place] [address], Ph. Attender: SHEREEN LAN [facility] Medical 10/26/2020 12:00:00 AM EST NORM ([facility]) Shereen Lan RPA-C: [address], [place] [address], Ph. Attender: SHEREEN LAN [facility] Medical 10/26/2020 12:00:00 AM EST NORM ([facility]) Shereen Lan RPA-C: [address], [place] [address], Ph. Attender: SHEREEN LAN [facility] Medical 10/26/2020 12:00:00 AM EST NORM ([facility]) Shereen Lan RPA-C: [address], [place] [address], Ph. Attender: SHEREEN LAN [facility] Medical 10/26/2020 12:00:00 AM EST NORM ([facility]) Shereen Lan RPA-C: [address], [place] [address], Ph. Attender: SHEREEN LAN [facility] Medical 10/26/2020 12:00:00 AM EST NORM ([facility]) Shereen Lan RPA-C: [address], [place] [address], Ph. Attender: SHEREEN LAN [facility] Medical 10/26/2020 12:00:00 AM EST NORM ([facility]) Shereen Lan RPA-C: [address], [place] [address], Ph. Attender: SHEREEN LAN [facility] Medical 10/22/2020 12:00:00 AM EST NORM ([facility]) Shereen Lan RPA-C: [address], [place] [address], Ph. Attender: SHEREEN LAN [facility] Medical 10/22/2020 12:00:00 AM EST NORM ([facility]) Shereen Lan RPA-C: [address], [place] [address], Ph. Attender: SHEREEN LAN [facility] Medical 10/22/2020 12:00:00 AM EST NORM ([facility]) Shereen Lan RPA-C: [address], [place] [address], Ph. Attender: SHEREEN LAN [facility] Medical 10/22/2020 12:00:00 AM EST NORM ([facility]) Shereen Lan RPA-C: [address], [place] [address], Ph. Attender: SHEREEN LAN [facility] Medical 10/22/2020 12:00:00 AM EST NORM ([facility]) Shereen Lan RPA-C: [address], [place] [address], Ph. Attender: SHEREEN LAN [facility] Medical 10/22/2020 12:00:00 AM EST NORM ([facility]) Shereen Lan RPA-C: [address], [place] [address], Ph. Attender: SHEREEN LAN [facility] Medical 10/22/2020 12:00:00 AM EST NORM ([facility]) Shereen Lan RPA-C: [address], [place] [address], Ph. Attender: SHEREEN LAN [facility] Medical 10/22/2020 12:00:00 AM EST NORM ([facility]) Shereen Lan RPA-C: [address], [place] [address], Ph. Attender: SHEREEN LAN [facility] Medical 10/22/2020 12:00:00 AM EST NORM ([facility]) Shereen Lan RPA-C: [address], [address], [place] [address], Ph. Attender: SHEREEN LAN [facility] Medical 10/22/2020 12:00:00 AM EST NORM ([facility]) Shereen Lan RPA-C: [address], [place] [address], Ph. Attender: SHEREEN LAN [facility] Medical 10/17/2020 12:00:00 AM EST NORM ([facility]) Shereen Lan RPA-C: [address], [place] [address], Ph. Attender: SHEREEN LAN [facility] Medical 10/17/2020 12:00:00 AM EST NORM ([facility]) Shereen Lan RPA-C: [address], [place] [address], Ph. Attender: SHEREEN LAN [facility] Medical 10/17/2020 12:00:00 AM EST NORM ([facility]) KOSTAS MendiolaC: [address], [place] [address], Ph. Attender: SHEREEN LAN [facility] Medical 10/17/2020 12:00:00 AM EST NORM ([facility]) KOSTAS MendiolaC: [address], [place] [address], Ph. Attender: SHEREEN LAN [facility] Medical 10/17/2020 12:00:00 AM EST NORM ([facility]) KOSTAS MendiolaC: [address], [place] [address], Ph. Attender: SHEREEN LAN [facility] Medical 10/17/2020 12:00:00 AM EST NORM ([facility]) Shereen Lan RPA-C: [address], [place] [address], Ph. Attender: SHEREEN LAN [facility] Medical 10/17/2020 12:00:00 AM EST NORM ([facility]) Shereen Lan RPA-C: [address], [place] [address], Ph. Attender: SHEREEN LAN [facility] Medical 10/17/2020 12:00:00 AM EST NORM ([facility]) Shereen Lan RPA-C: [address], [place] [address], Ph. Attender: SHEREEN LAN [facility] Medical 10/17/2020 12:00:00 AM EST NORM ([facility]) Shereen Lan RPA-C: [address], [place] [address], Ph. Attender: SHEREEN LAN [facility] Medical 10/17/2020 12:00:00 AM EST NORM ([facility]) Shereen Lan RPA-C: [address], [place] [address], Ph. Attender: SHEREEN LAN [facility] Medical 10/17/2020 12:00:00 AM EST NORM ([facility]) Shereen Lan RPA-C: [address], [place] [address], Ph. Attender: SHEREEN LAN [facility] Medical 09/21/2020 12:00:00 AM EST NORM ([facility]) Shereen Lan RPA-C: [address], [place] [address], Ph. Attender: SHEREEN LAN [facility] Medical 09/21/2020 12:00:00 AM EST NORM ([facility]) Shereen Lan RPA-C: [address], [place] [address], Ph. Attender: SHEREEN LAN [facility] Medical 09/21/2020 12:00:00 AM EST NORM ([facility]) Shereen Lan RPA-C: [address], [place] [address], Ph. Attender: SHEREEN LAN [facility] Medical 09/21/2020 12:00:00 AM EST NORM ([facility]) Shereen Lan RPA-C: [address], [place] [address], Ph. Attender: SHEREEN LAN [facility] Medical 09/21/2020 12:00:00 AM EST NORM ([facility]) Shereen Lan RPA-C: [address], [place] [address], Ph. Attender: SHEREEN LAN [facility] Medical 09/21/2020 12:00:00 AM EST NORM ([facility]) Shereen Lan RPA-C: [address], [place] [address], Ph. Attender: SHEREEN LAN [facility] Medical 09/21/2020 12:00:00 AM EST NORM ([facility]) Shereen Lan RPA-C: [address], [place] [address], Ph. Attender: [facility] LAN [facility] 09/21/2020 12:00:00 AM EST NORM ([facility]) KOSTAS MendiolaC: [address], [place] [address], Ph. Attender: SHEREEN LAN [facility] Medical 09/21/2020 12:00:00 AM EST NORM ([facility]) KOSTAS MendiolaC: [address], [place] [address], Ph. Attender: SHEREEN LAN [facility] Medical 09/21/2020 12:00:00 AM EST NORM ([facility]) KOSTAS MendiolaC: [address], [place] [address], Ph. Attender: SHEREEN LAN [facility] Medical 09/21/2020 12:00:00 AM EST NORM ([facility]) KOSTAS MendiolaC: [address], [place] [address], Ph. Attender: SHEREEN LAN [facility] Medical 09/21/2020 12:00:00 AM EST NORM ([facility]) JOSE SpencerC: [address], [place] [address], Ph. Attender: Chiqui [facility] 09/06/2020 12:00:00 AM EST NORM ([facility]) Chiqui Madera PA-C: [address], [place] [address], Ph. Attender: Chiqui MACDONALD [facility] Medical 09/06/2020 12:00:00 AM EST NORM ([facility]) Chiqui Madera PA-C: [address], [place] [address], Ph. Attender: Chiqui MACDONALD [facility] Medical 09/06/2020 12:00:00 AM EST NORM ([facility]) Chiqui Madera PA-C: [address], [place] [address], Ph. Attender: Chiqui MACDONALD [facility] Medical 09/06/2020 12:00:00 AM EST NORM ([facility]) Chiqui Madera PA-C: [address], [place] [address], Ph. Attender: Chiqui MACDONALD [facility] Medical 09/06/2020 12:00:00 AM EST NORM ([facility]) Chiqui Madera PA-C: [address], [place] [address], Ph. Attender: Chiqui MACDONALD [facility] Medical 09/06/2020 12:00:00 AM EST NORM ([facility]) Chiqui Madera PA-C: [address], [place] [address], Ph. Attender: Chiqui MACDONALD [facility] Medical 09/06/2020 12:00:00 AM EST NORM ([facility]) Chiqui Madera PA-C: [address], [place] [address], Ph. Attender: Chiqui MACDONALD [facility] Medical 09/06/2020 12:00:00 AM EST NORM ([facility]) Chiqui Madera PA-C: [address], [place] [address], Ph. Attender: Chiqui MACDONALD [facility] Medical 09/06/2020 12:00:00 AM EST NORM ([facility]) Chiqui Madera PA-C: [address], [place] [address], Ph. Attender: Chiqui MACDONALD [facility] Medical 09/06/2020 12:00:00 AM EST NORM ([facility]) Chiqui Madera PA-C: [address], [place] [address], Ph. Attender: Chiqui MACDONALD [facility] Medical 09/06/2020 12:00:00 AM EST NORM ([facility]) Chiqui Madera PA-C: [address], [place] [address], Ph. Attender: Chiqui MACDONALD [facility] Medical 09/06/2020 12:00:00 AM EST NORM ([facility]) Chiqui Madera PA-C: [address], [place] [address], Ph. Attender: Chiqui MACDONALD [facility] Medical 09/06/2020 12:00:00 AM EST NORM ([facility]) Chiqui Madera PA-C: [address], [place] [address], Ph. Attender: Chiqui MACDONALD [facility] Medical 08/30/2020 12:00:00 AM EST NORM ([facility]) Chiqui Madera PA-C: [address], [place] [address], Ph. Attender: Chiqui MACDONALD [facility] Medical 08/30/2020 12:00:00 AM EST NORM ([facility]) Chiqui Madera PA-C: [address], [place] [address], Ph. Attender: Chiqui MACDONALD [facility] 08/30/2020 12:00:00 AM EST NORM ([facility]) Chiqui Madera PA-C: [address], [place] [address], Ph. Attender: Chiqui MACDONALD [facility] 08/30/2020 12:00:00 AM EST NORM ([facility]) Chiqui Madera PA-C: [address], [place] [address], Ph. Attender: Chiqui MACDONALD [facility] 08/30/2020 12:00:00 AM EST NORM ([facility]) Chiqui Madera PA-C: [address], [place] [address], Ph. Attender: Chiqui MACDONALD [facility] 08/30/2020 12:00:00 AM EST NORM ([facility]) Chiqui Madera PA-C: [address], [place] [address], Ph. Attender: Chiqui MACDONALD [facility] 08/30/2020 12:00:00 AM EST NORM ([facility]) Chiqui Madera PA-C: [address], [place] [address], Ph. Attender: Chiqui MACDONALD [facility] 08/30/2020 12:00:00 AM EST NORM ([facility]) Chiqui Madera PA-C: [address], [place] [address], Ph. Attender: Chiqui MACDONALD [facility] 08/30/2020 12:00:00 AM EST NORM ([facility]) Chiqui Madera PA-C: [address], [place] [address], Ph. Attender: Chiqui MACDONALD [facility] 08/30/2020 12:00:00 AM EST NORM ([facility]) Chiqui Madera PA-C: [address], [place] [address], Ph. Attender: Chiqui MACDONALD [facility] 08/30/2020 12:00:00 AM EST NORM ([facility]) Chiqui Madera PA-C: [address], [place] [address], Ph. Attender: Chiqui MACDONALD [facility] 08/30/2020 12:00:00 AM EST NORM ([facility]) Chiqui Madera PA-C: [address], [place] [address], Ph. Attender: Chiqui MACDONALD [facility] 08/30/2020 12:00:00 AM EST NORM ([facility]) Chiqui Madera PA-C: [address], [place] [address], Ph. Attender: Chiqui MACDONALD [facility] Medical 08/30/2020 12:00:00 AM EST NORM ([facility]) Chiqui Madera PA-C: [address], [place] [address], Ph. Attender: Chiqui MACDONALD [facility] Medical 08/30/2020 12:00:00 AM EST NORM ([facility]) Chiqui Madera PA-C: [address], [place] [address], Ph. Attender: Chiqui MACDONALD [facility] Medical 08/30/2020 12:00:00 AM EST NORM ([facility]) Chiqui Madera PA-C: [address], [place] [address], Ph. Attender: Chiqui MACDONALD [facility] Medical 08/30/2020 12:00:00 AM EST NORM ([facility]) Chiqui Madera PA-C: [address], [place] [address], Ph. Attender: Chiqui MACDONALD [facility] Medical 08/30/2020 12:00:00 AM EST NORM ([facility]) Chiqui Madera PA-C: [address], [place] [address], Ph. Attender: Chiqui MACDONALD [facility] Medical 08/30/2020 12:00:00 AM EST NORM ([facility]) Chiqui Madera PA-C: [address], [place] [address], Ph. Attender: Chiqui MACDONALD [facility] Medical 08/30/2020 12:00:00 AM EST NORM ([facility]) Chiqui Madera PA-C: [address], [place] [address], Ph. Attender: Chiqui MACDONALD [facility] Medical 08/30/2020 12:00:00 AM EST NORM ([facility]) Chiqui Madera PA-C: [address], [place] [address], Ph. Attender: Chiqui MACDONALD [facility] Medical 08/30/2020 12:00:00 AM EST NORM ([facility]) Chiqui Scordo, PA-C: [address], [place] [address], Ph. Attender: Chiqui MACDONALD [facility] Medical 08/30/2020 12:00:00 AM EST NORM ([facility]) Chiqui Madera PA-C: [address], [place] [address], Ph. Attender: Chiqui MACDONALD [facility] Medical 08/30/2020 12:00:00 AM EST NORM ([facility]) Chiqui Madera PA-C: [address], [place] [address], Ph. Attender: Chiqui MACDONALD [facility] Medical 08/30/2020 12:00:00 AM EST NORM ([facility]) Chiqui Madera PA-C: [address], [place] [address], Ph. Attender: Chiqui MACDONALD [facility] Medical 08/30/2020 12:00:00 AM EST NORM ([facility]) Chiqui Madera PA-C: [address], [place] [address], Ph. Attender: Chiqui MACDONALD [facility] Medical 08/30/2020 12:00:00 AM EST NORM ([facility]) Chiqui Madera PA-C: [address], [place] [address], Ph. Attender: Chiqui MACDONALD [facility] Medical 08/30/2020 12:00:00 AM EST NORM ([facility]) Shereen Lan RPA-C: [address], [place] [address], Ph. Attender: SHEREEN LAN [facility] Medical 08/29/2020 12:00:00 AM EST NORM ([facility]) KOSTAS MendiolaC: [address], [place] [address], Ph. Attender: SHEREEN LAN [facility] Medical 08/29/2020 12:00:00 AM EST ONRM ([facility]) KOSTAS MendiolaC: [address], [place] [address], Ph. Attender: SHEREEN LAN [facility] Medical 08/29/2020 12:00:00 AM EST NORM ([facility]) KOSTAS MendiolaC: [address], [place] [address], Ph. Attender: SHEREEN LAN [facility] Medical 08/29/2020 12:00:00 AM EST NORM ([facility]) KOSTAS MendiolaC: [address], [place] [address], Ph. Attender: SHEREEN LAN [facility] Medical 08/29/2020 12:00:00 AM EST NORM ([facility]) KOSTAS MendiolaC: [address], [place] [address], Ph. Attender: SHEREEN LAN [facility] Medical 08/29/2020 12:00:00 AM EST NORM ([facility]) KOSTAS MendiolaC: [address], [place] [address], Ph. Attender: SHEREEN LAN [facility] Medical 08/29/2020 12:00:00 AM EST NORM ([facility]) Shereen Lan RPAKaushikC: [address], [place] [address], Ph. Attender: SHEREEN LAN [facility] Medical 08/29/2020 12:00:00 AM EST NORM ([facility]) KOSTAS MendiolaC: [address], [place] [address], Ph. Attender: SHEREEN LAN [facility] Medical 08/29/2020 12:00:00 AM EST NORM ([facility]) KOSTAS MendiolaC: [address], [place] [address], Ph. Attender: SHEREEN LAN [facility] Medical 08/29/2020 12:00:00 AM EST NORM ([facility]) KOSTAS MendiolaC: [address], [place] [address], Ph. Attender: SHEREEN LAN [facility] Medical 08/29/2020 12:00:00 AM EST NORM ([facility]) KOSTAS MendiolaC: [address], [place] [address], Ph. Attender: SHEREEN LAN [facility] Medical 08/29/2020 12:00:00 AM EST NORM ([facility]) KOSTAS MendiolaC: [address], [place] [address], Ph. Attender: SHEREEN LAN [facility] Medical 08/29/2020 12:00:00 AM EST NORM ([facility]) KOSTAS MendiolaC: [address], [place] [address], Ph. Attender: SHEREEN LAN [facility] Medical 08/29/2020 12:00:00 AM EST NORM ([facility]) KOSTAS MendiolaC: [address], [place] [address], Ph. Attender: SHEREEN LAN [facility] Medical 08/29/2020 12:00:00 AM EST NORM ([facility]) Outpatient Attender: Teena sandoval 08/21/2020 02:15:00 PM EST MEDENT ([facility], [facility]) Medications Medication Brand Name Start Date Product Form Dose Route Admi nistrative Instructions Pharmacy Instructions Status Indications Reaction Description Data Source(s) cetirizine hydrochloride 10 MG Oral Tablet cetirizine 10 mg tablet cetirizine 10 mg tablet 08/29/2020 12:00:00 AM EST complete d cetirizine hydrochloride 10 MG Oral Tablet NORM ([facility]) cetirizine hydrochloride 10 MG Oral Tablet cetirizine 10 mg tablet cetirizine 10 mg tablet 08/29/2020 12:00:00 AM EST complete d cetirizine hydrochloride 10 MG Oral Tablet NORM ([facility]) 60 ACTUAT Albuterol 0.09 MG/ACTUAT Metered Dose Inhaler Albu terol Sulfate HFA 08/21/2020 12:00:00 AM EST RESPIRATORY active MEDENT ([facility], [facility]) Ibuprofen 800 MG Oral Tablet ibuprofen 8 00 mg tablet TAKE 1 TABLET BY MOUTH EVERY 6 TO 8 HOURS NEEDED ibuprofen 800 mg tablet TAKE 1 TABLET BY MOUTH EVERY 6 TO 8 HOURS NEEDED completed ibuprofen 800 MG Oral Tablet NORM ([facility]) Azithromycin 250 MG Oral Tablet azithrom [...] completed azithromycin 250 MG Oral Tablet NORM ([facility]) Levothyroxine Sodium 0.025 MG Oral Table t [Euthyrox] Euthyrox 25 mcg tablet TAKE 1 TABLET BY MOUTH ONCE DAILY Euthyrox 25 mcg tablet TAKE 1 TABLET BY MOUTH ONCE DAILY completed levothy roxine sodium 0.025 MG Oral Tablet [Euthyrox] NORM ([facility]) POLYETHYLENE GLYCOL 3350 142 MG/ML Oral Solution [Miralax] Miralax 17 gram/dose oral powder Take by oral route. Miralax 17 gram/dose oral powder Take by oral route. completed polyeth ylene glycol 3350 79401 MG Powder for Oral Solution [Miralax] NORM ([facility]) Clindamycin 300 MG Oral Capsule clindamy nestor HCl 300 mg capsule TAKE 1 CAPSULE BY MOUTH THREE TIMES DAILY FOR 10 DAYS clindamycin HCl 300 mg capsule TAKE 1 CAPSULE BY MOUTH THREE TIMES DAILY FOR 10 DAYS completed clindamycin 300 MG Oral Capsule NORM ([facility]) Ibuprofen 800 MG Oral Tablet ibuprofen 8 00 mg tablet TAKE 1 TABLET BY MOUTH EVERY 6 TO 8 HOURS NEEDED ibuprofen 800 mg tablet TAKE 1 TABLET BY MOUTH EVERY 6 TO 8 HOURS NEEDED completed ibuprofen 800 MG Oral Tablet NORM ([facility]) Azithromycin 250 MG Oral Tablet azithrom [...] completed azithromycin 250 MG Oral Tablet NORM ([facility]) Clindamycin 300 MG Oral Capsule clindamycin HCl 300 mg capsule clindamycin HCl 300 mg capsule completed clindam ycin 300 MG Oral Capsule NORM ([facility]) Clindamycin 300 MG Oral Capsule clindamycin HCl 300 mg capsule clindamycin HCl 300 mg capsule completed clindam ycin 300 MG Oral Capsule NORM ([facility]) Azithromycin 250 MG Oral Tablet azithrom ycin [...] completed azithromycin 250 MG Oral Tablet NORM ([facility]) Levothyroxine Sodium 0.05 MG Oral Tablet [Euthyrox] Euthyrox 50 mcg tablet TAKE 1 TABLET BY MOUTH ONCE DAILY Euthyrox 50 mcg tablet TAKE 1 TABLET BY MOUTH ONCE DAILY completed levothy roxine sodium 0.05 MG Oral Tablet [Euthyrox] NORM ([facility]) Levothyroxine Sodium 0.025 MG Oral Table t [Euthyrox] Euthyrox 25 mcg tablet TAKE 1 TABLET BY MOUTH ONCE DAILY Euthyrox 25 mcg tablet TAKE 1 TABLET BY MOUTH ONCE DAILY completed levothy roxine sodium 0.025 MG Oral Tablet [Euthyrox] NORM ([facility]) Ibuprofen 800 MG Oral Tablet ibuprofen 8 00 mg tablet TAKE 1 TABLET BY MOUTH EVERY 6 TO 8 HOURS NEEDED ibuprofen 800 mg tablet TAKE 1 TABLET BY MOUTH EVERY 6 TO 8 HOURS NEEDED completed ibuprofen 800 MG Oral Tablet NORM ([facility]) Azithromycin 250 MG Oral Tablet azithrom [...] completed azithromycin 250 MG Oral Tablet NORM ([facility]) Clindamycin 300 MG Oral Capsule clindamycin HCl 300 mg capsule clindamycin HCl 300 mg capsule completed clindam ycin 300 MG Oral Capsule NORM ([facility]) Clindamycin 300 MG Oral Capsule clindamycin HCl 300 mg capsule clindamycin HCl 300 mg capsule completed clindam ycin 300 MG Oral Capsule NORM ([facility]) Levothyroxine Sodium 0.05 MG Oral Tablet [Euthyrox] Euthyrox 50 mcg tablet TAKE 1 TABLET BY MOUTH ONCE DAILY Euthyrox 50 mcg tablet TAKE 1 TABLET BY MOUTH ONCE DAILY completed levothy roxine sodium 0.05 MG Oral Tablet [Euthyrox] NORM ([facility]) Clindamycin 300 MG Oral Capsule clindamycin HCl 300 mg capsule clindamycin HCl 300 mg capsule completed clindam ycin 300 MG Oral Capsule NORM ([facility]) Azithromycin 250 MG Oral Tablet azithrom ycin [...] completed azithromycin 250 MG Oral Tablet NORM ([facility]) Ibuprofen 800 MG Oral Tablet ibuprofen 8 00 mg tablet TAKE 1 TABLET BY MOUTH EVERY 6 TO 8 HOURS NEEDED ibuprofen 800 mg tablet TAKE 1 TABLET BY MOUTH EVERY 6 TO 8 HOURS NEEDED completed ibuprofen 800 MG Oral Tablet NORM ([facility]) Ibuprofen 800 MG Oral Tablet ibuprofen 8 00 mg tablet TAKE 1 TABLET BY MOUTH EVERY 6 TO 8 HOURS NEEDED ibuprofen 800 mg tablet TAKE 1 TABLET BY MOUTH EVERY 6 TO 8 HOURS NEEDED completed ibuprofen 800 MG Oral Tablet NORM ([facility]) Ibuprofen 800 MG Oral Tablet ibuprofen 8 00 mg tablet TAKE 1 TABLET BY MOUTH EVERY 6 TO 8 HOURS NEEDED ibuprofen 800 mg tablet TAKE 1 TABLET BY MOUTH EVERY 6 TO 8 HOURS NEEDED completed ibuprofen 800 MG Oral Tablet NORM ([facility]) Azithromycin 250 MG Oral Tablet azithrom [...] completed azithromycin 250 MG Oral Tablet NORM ([facility]) Clindamycin 300 MG Oral Capsule clindamy nestor HCl 300 mg capsule TAKE 1 CAPSULE BY MOUTH THREE TIMES DAILY FOR 10 DAYS clindamycin HCl 300 mg capsule TAKE 1 CAPSULE BY MOUTH THREE TIMES DAILY FOR 10 DAYS completed clindamycin 300 MG Oral Capsule NORM ([facility]) Clindamycin 300 MG Oral Capsule clindamy nestor HCl 300 mg capsule TAKE 1 CAPSULE BY MOUTH THREE TIMES DAILY FOR 10 DAYS clindamycin HCl 300 mg capsule TAKE 1 CAPSULE BY MOUTH THREE TIMES DAILY FOR 10 DAYS completed clindamycin 300 MG Oral Capsule NORM ([facility]) Clindamycin 300 MG Oral Capsule clindamycin HCl 300 mg capsule clindamycin HCl 300 mg capsule completed clindam ycin 300 MG Oral Capsule NORM ([facility]) Levothyroxine Sodium 0.025 MG Oral Table t [Euthyrox] Euthyrox 25 mcg tablet TAKE 1 TABLET BY MOUTH ONCE DAILY Euthyrox 25 mcg tablet TAKE 1 TABLET BY MOUTH ONCE DAILY completed levothy roxine sodium 0.025 MG Oral Tablet [Euthyrox] NORM ([facility]) Azithromycin 250 MG Oral Tablet azithrom [...] completed azithromycin 250 MG Oral Tablet NORM ([facility]) Levothyroxine Sodium 0.025 MG Oral Table t [Euthyrox] Euthyrox 25 mcg tablet TAKE 1 TABLET BY MOUTH ONCE DAILY Euthyrox 25 mcg tablet TAKE 1 TABLET BY MOUTH ONCE DAILY completed levothy roxine sodium 0.025 MG Oral Tablet [Euthyrox] NORM ([facility]) Clindamycin 300 MG Oral Capsule clindamy nestor HCl 300 mg capsule TAKE 1 CAPSULE BY MOUTH THREE TIMES DAILY FOR 10 DAYS clindamycin HCl 300 mg capsule TAKE 1 CAPSULE BY MOUTH THREE TIMES DAILY FOR 10 DAYS completed clindamycin 300 MG Oral Capsule NORM ([facility]) POLYETHYLENE GLYCOL 3350 142 MG/ML Oral Solution [Miralax] Miralax 17 gram/dose oral powder Take by oral route. Miralax 17 gram/dose oral powder Take by oral route. completed polyeth ylene glycol 3350 69661 MG Powder for Oral Solution [Miralax] NORM ([facility]) Azithromycin 250 MG Oral Tablet azithrom [...] completed azithromycin 250 MG Oral Tablet NORM ([facility]) cefdinir 300 MG Oral Capsule cefdinir 30 0 mg capsule TAKE 1 CAPSULE BY MOUTH EVERY 12 HOURS FOR 5 DAYS cefdinir 300 mg capsule TAKE 1 CAPSULE B Y MOUTH EVERY 12 HOURS FOR 5 DAYS completed ce fdinir 300 MG Oral Capsule NORM ([facility]) Azithromycin 250 MG Oral Tablet azithrom ycin [...] completed azithromycin 250 MG Oral Tablet NORM ([facility]) Clindamycin 300 MG Oral Capsule clindamycin HCl 300 mg capsule clindamycin HCl 300 mg capsule completed clindam ycin 300 MG Oral Capsule NORM ([facility]) Levothyroxine Sodium 0.025 MG Oral Table t [Euthyrox] Euthyrox 25 mcg tablet TAKE 1 TABLET BY MOUTH ONCE DAILY Euthyrox 25 mcg tablet TAKE 1 TABLET BY MOUTH ONCE DAILY completed levothy roxine sodium 0.025 MG Oral Tablet [Euthyrox] NORM ([facility]) Azithromycin 250 MG Oral Tablet azithrom [...] completed azithromycin 250 MG Oral Tablet NORM ([facility]) Ibuprofen 800 MG Oral Tablet ibuprofen 8 00 mg tablet TAKE 1 TABLET BY MOUTH EVERY 6 TO 8 HOURS NEEDED ibuprofen 800 mg tablet TAKE 1 TABLET BY MOUTH EVERY 6 TO 8 HOURS NEEDED completed ibuprofen 800 MG Oral Tablet NORM ([facility]) Ibuprofen 800 MG Oral Tablet ibuprofen 8 00 mg tablet TAKE 1 TABLET BY MOUTH EVERY 6 TO 8 HOURS NEEDED ibuprofen 800 mg tablet TAKE 1 TABLET BY MOUTH EVERY 6 TO 8 HOURS NEEDED completed ibuprofen 800 MG Oral Tablet NORM ([facility]) Ibuprofen 800 MG Oral Tablet ibuprofen 8 00 mg tablet TAKE 1 TABLET BY MOUTH EVERY 6 TO 8 HOURS NEEDED ibuprofen 800 mg tablet TAKE 1 TABLET BY MOUTH EVERY 6 TO 8 HOURS NEEDED completed ibuprofen 800 MG Oral Tablet NORM ([facility]) Levothyroxine Sodium 0.05 MG Oral Tablet [Euthyrox] Euthyrox 50 mcg tablet TAKE 1 TABLET BY MOUTH ONCE DAILY Euthyrox 50 mcg tablet TAKE 1 TABLET BY MOUTH ONCE DAILY completed levothy roxine sodium 0.05 MG Oral Tablet [Euthyrox] NORM ([facility]) Levothyroxine Sodium 0.025 MG Oral Table t [Euthyrox] Euthyrox 25 mcg tablet TAKE 1 TABLET BY MOUTH ONCE DAILY Euthyrox 25 mcg tablet TAKE 1 TABLET BY MOUTH ONCE DAILY completed levothy roxine sodium 0.025 MG Oral Tablet [Euthyrox] NORM ([facility]) albuterol sulfate HFA 90 mcg/actuation aerosol inhaler [id number] completed [id number] 200 ACTUAT albuterol 0.09 MG/ACTUAT Metered Dose Inhaler NORM ([facility]) Azithromycin 250 MG Oral Tablet azithrom [...] completed azithromycin 250 MG Oral Tablet NORM ([facility]) d3 50 mcg (1999) caps completed d3 50 mcg (1999) caps NORM ([facility]) d3 50 mcg (1999 ut) caps completed d3 50 mcg (1999) caps NORM ([facility]) Ibuprofen 800 MG Oral Tablet ibuprofen 8 00 mg tablet TAKE 1 TABLET BY MOUTH EVERY 6 TO 8 HOURS NEEDED ibuprofen 800 mg tablet TAKE 1 TABLET BY MOUTH EVERY 6 TO 8 HOURS NEEDED completed ibuprofen 800 MG Oral Tablet NORM ([facility]) Ibuprofen 800 MG Oral Tablet ibuprofen 8 00 mg tablet TAKE 1 TABLET BY MOUTH EVERY 6 TO 8 HOURS NEEDED ibuprofen 800 mg tablet TAKE 1 TABLET BY MOUTH EVERY 6 TO 8 HOURS NEEDED completed ibuprofen 800 MG Oral Tablet NORM ([facility]) Clindamycin 300 MG Oral Capsule clindamycin HCl 300 mg capsule clindamycin HCl 300 mg capsule completed clindam ycin 300 MG Oral Capsule ROCHELLE ([facility]) Levothyroxine Sodium 0.05 MG Oral Tablet [Euthyrox] Euthyrox 50 mcg tablet TAKE 1 TABLET BY MOUTH ONCE DAILY Euthyrox 50 mcg tablet TAKE 1 TABLET BY MOUTH ONCE DAILY completed levothy roxine sodium 0.05 MG Oral Tablet [Euthyrox] NORM ([facility]) Ibuprofen 800 MG Oral Tablet ibuprofen 8 00 mg tablet TAKE 1 TABLET BY MOUTH EVERY 6 TO 8 HOURS NEEDED ibuprofen 800 mg tablet TAKE 1 TABLET BY MOUTH EVERY 6 TO 8 HOURS NEEDED completed ibuprofen 800 MG Oral Tablet NORM ([facility]) Levothyroxine Sodium 0.025 MG Oral Table t [Euthyrox] Euthyrox 25 mcg tablet TAKE 1 TABLET BY MOUTH ONCE DAILY Euthyrox 25 mcg tablet TAKE 1 TABLET BY MOUTH ONCE DAILY completed levothy roxine sodium 0.025 MG Oral Tablet [Euthyrox] NORM ([facility]) Azithromycin 250 MG Oral Tablet azithrom [...] 5 completed azithromycin 250 MG Oral Tablet ROCHELLE ([facility]) Clindamycin 300 MG Oral Capsule clindamycin HCl 300 mg capsule clindamycin HCl 300 mg capsule completed clindam ycin 300 MG Oral Capsule ROCHELLE ([facility]) POLYETHYLENE GLYCOL 3350 142 MG/ML Oral Solution [Miralax] Miralax 17 gram/dose oral powder Take by oral route. Miralax 17 gram/dose oral powder Take by oral route. completed polyeth ylene glycol 3350 18795 MG Powder for Oral Solution [Miralax] NORM ([facility]) Ibuprofen 800 MG Oral Tablet ibuprofen 8 00 mg tablet TAKE 1 TABLET BY MOUTH EVERY 6 TO 8 HOURS NEEDED ibuprofen 800 mg tablet TAKE 1 TABLET BY MOUTH EVERY 6 TO 8 HOURS NEEDED completed ibuprofen 800 MG Oral Tablet NORM ([facility]) POLYETHYLENE GLYCOL 3350 142 MG/ML Oral Solution [Miralax] Miralax 17 gram/dose oral powder Take by oral route. Miralax 17 gram/dose oral powder Take by oral route. completed polyeth ylene glycol 3350 21206 MG Powder for Oral Solution [Miralax] NORM ([facility]) Ibuprofen 800 MG Oral Tablet ibuprofen 8 00 mg tablet TAKE 1 TABLET BY MOUTH EVERY 6 TO 8 HOURS NEEDED ibuprofen 800 mg tablet TAKE 1 TABLET BY MOUTH EVERY 6 TO 8 HOURS NEEDED completed ibuprofen 800 MG Oral Tablet NORM ([facility]) Ibuprofen 800 MG Oral Tablet ibuprofen 8 00 mg tablet TAKE 1 TABLET BY MOUTH EVERY 6 TO 8 HOURS NEEDED ibuprofen 800 mg tablet TAKE 1 TABLET BY MOUTH EVERY 6 TO 8 HOURS NEEDED completed ibuprofen 800 MG Oral Tablet NORM ([facility]) Clindamycin 300 MG Oral Capsule clindamycin HCl 300 mg capsule clindamycin HCl 300 mg capsule completed clindam ycin 300 MG Oral Capsule ROCHELLE ([facility]) albuterol sulfate HFA 90 mcg/actuation aerosol inhaler [id number] completed [id number] 200 ACTUAT albuterol 0.09 MG/ACTUAT Metered Dose Inhaler ROCHELLE ([facility]) fluticasone 113 mcg-salmeterol 14 mcg/actuation breath activated powdr 292291 completed 60 ACTUAT flut icasone propionate 0.113 MG/ACTUAT / salmeterol 0.014 MG/ACTUAT Dry Powder Inhaler ROCHELLE ([facility]) Insurance Providers Payer name Policy type / Coverage type Policy ID Covered constitution party ID Covered constitution party's relationship to rodgers Policy Rodgers Plan Information [employer] [id number] Self [id number] [employer] [id number] Self [id number] [employer] emp [id number] Employee [id number] [employer] emp [id number] Employee [id number] Managed Care - [facility] Community Plan P [id number] S [id number] [employer] [id number] Self [id number] Medicaid O UNAVAILABLE S UNAVAILA BLE Sliding Fee Scale P [id number] S [id number] SELF PAY UNAVAILABLE SP UNAVAILA BLE MEDICAID [id number] SP [id number] [facility] Health Maintenance Organization (HMO) [id number] Self [id number] [facility] [place] Health Maintenance Organization (HMO) [id number] Self [id number] [facility] [employer] [employer] Maintenance Organization (HMO) [id number] Self [id number] [facility] [place] [employer] Maintenance Organization (HMO) [id number] Self [id number] [facility] [place] [employer] Maintenance Organization (HMO) [id number] Self [id number] [facility] [place] Health Maintenance Organization (HMO) [id number] Self [facility] Community Plan Health Maintenance Organization (HMO) [id number] Self [employer] XIX -HMO [id number] 18 [id number] [employer] COMMUNITY PLAN [facility] [id number] SP [id number] [facility] O [id number] S [id number] [facility] [id number] SP [id number] MEDICAID [id number] SP [id number] Medicaid S [id number] S [id number] Managed Care - [facility] Community Plan S UNAVAILABLE S UNAVAILABLE Problems, Conditions, and Diagnoses Code Display Name Description Problem Type Effective Dates Data Source(s) [id number] COVID-19 Covid-19 Problem 07/22/2021 12:00:00 AM ES Colette ZHENG ([facility]) [id number] Vitamin D deficiency Vitamin D Deficiency Problem 07/17/2021 09:50:12 AM KELLY ZHENG ([facility]) [id number] Asthma Asthma Problem 01/15/2021 12:00:00 AM ED Colette ZHENG ([facility]) [id number] Asthma Asthma Problem 01/15/2021 12:00:00 AM ED Colette ZHENG ([facility]) [id number] Asthma Asthma Problem 01/15/2021 12:00:00 AM ED T NORM ([facility]) [id number] Asthma Asthma Problem 01/15/2021 12:00:00 AM ED T NORM ([facility]) [id number] Asthma Asthma Problem 01/15/2021 12:00:00 AM ED T NORM ([facility]) [id number] Asthma Asthma Problem 01/15/2021 12:00:00 AM ED T NORM ([facility]) [id number] Pharyngeal finding Pharyngeal Finding Problem 03/2020 12:00:00 AM EDT - 01/15/2021 12:00:00 AM EDT NORM ([facility]) [id number] Pharyngeal finding Pharyngeal Finding Problem 03/2020 12:00:00 AM EDT - 01/15/2021 12:00:00 AM EDT NORM ([facility]) [id number] Pharyngeal finding Pharyngeal Finding Problem 03/2020 12:00:00 AM EDT - 01/15/2021 12:00:00 AM EDT NORM ([facility]) [id number] Pharyngeal finding Pharyngeal Finding Problem 03/2020 12:00:00 AM EDT - 01/15/2021 12:00:00 AM EDT NORM ([facility]) [id number] Pharyngeal finding Pharyngeal Finding Problem 03/2020 12:00:00 AM EDT - 01/15/2021 12:00:00 AM EDT NORM ([facility]) [id number] Pharyngeal finding Pharyngeal Finding Problem 03/2020 12:00:00 AM EDT - 01/15/2021 12:00:00 AM EDT NORM ([facility]) [id number] Clinical finding Clinical Finding Problem 12:00:00 AM EST - 01/15/2021 12:00:00 AM EDT NORM ([facility]) [id number] Adult health examination Adult Health Examination Prob ken 10/24/2019 12:00:00 AM EST - 04/02/2021 12:00:00 AM EDT NORM ([facility]) [id number] Influenza vaccine needed Influenza Vaccine Needed Pro blem 10/24/2019 12:00:00 AM EST - 04/02/2021 12:00:00 AM EDT NORM ([facility]) [id number] Left upper quadrant pain Left Upper Quadrant Pain Prob ken 10/24/2019 12:00:00 AM EST - 01/15/2021 12:00:00 AM EDT [place] ([facility]) [id number] Exacerbation of intermittent asthma Exac erbation of Intermittent Asthma Problem 10/24/2019 12:00:00 AM EST - 01/15/2021 12:00:00 AM EDT [place] ([facility]) [id number] Iron deficiency Iron Deficiency Problem 12:00:00 AM EST - 04/02/2021 12:00:00 AM EDT [place] ([facility]) [id number] Adult health examination Adult Health Examination Prob ken 10/24/2019 12:00:00 AM EST - 04/02/2021 12:00:00 AM EDT [place] ([facility]) [id number] Influenza vaccine needed Influenza Vaccine Needed Pro blem 10/24/2019 12:00:00 AM EST - 04/02/2021 12:00:00 AM EDT [place] ([facility]) [id number] Left upper quadrant pain Left Upper Quadrant Pain Prob ken 10/24/2019 12:00:00 AM EST - 01/15/2021 12:00:00 AM EDT [place] ([facility]) [id number] Exacerbation of intermittent asthma Exac erbation of Intermittent Asthma Problem 10/24/2019 12:00:00 AM EST - 01/15/2021 12:00:00 AM EDT [place] ([facility]) [id number] Iron deficiency Iron Deficiency Problem 0 12:00:00 AM EST - 04/02/2021 12:00:00 AM EDT [place] ([facility]) [id number] Clinical finding Clinical Finding Problem 020 12:00:00 AM EST - 01/15/2021 12:00:00 AM EDT NORM ([facility]) [id number] Adult health examination Adult Health Examination Prob ken 10/24/2019 12:00:00 AM EST - 04/02/2021 12:00:00 AM EDT [place] ([facility]) [id number] Influenza vaccine needed Influenza Vaccine Needed Pro blem 10/24/2019 12:00:00 AM EST - 04/02/2021 12:00:00 AM EDT [place] ([facility]) [id number] Left upper quadrant pain Left Upper Quadrant Pain Prob ken 10/24/2019 12:00:00 AM EST - 01/15/2021 12:00:00 AM EDT [place] ([facility]) [id number] Exacerbation of intermittent asthma Exac erbation of Intermittent Asthma Problem 10/24/2019 12:00:00 AM EST - 01/15/2021 12:00:00 AM EDT [place] ([facility]) [id number] Iron deficiency Iron Deficiency Problem 0 12:00:00 AM EST - 04/02/2021 12:00:00 AM EDT [place] ([facility]) [id number] Clinical finding Clinical Finding Problem 020 12:00:00 AM EST - 01/15/2021 12:00:00 AM EDT [place] ([facility]) [id number] Adult health examination Adult Health Examination Prob ken 10/24/2019 12:00:00 AM EST - 04/02/2021 12:00:00 AM EDT [place] ([facility]) [id number] Influenza vaccine needed Influenza Vaccine Needed Pro blem 10/24/2019 12:00:00 AM EST - 04/02/2021 12:00:00 AM EDT [place] ([facility]) [id number] Left upper quadrant pain Left Upper Quadrant Pain Prob ken 10/24/2019 12:00:00 AM EST - 01/15/2021 12:00:00 AM EDT [place] ([facility]) [id number] Exacerbation of intermittent asthma Exac erbation of Intermittent Asthma Problem 10/24/2019 12:00:00 AM EST - 01/15/2021 12:00:00 AM EDT [place] ([facility]) [id number] Iron deficiency Iron Deficiency Problem 0 12:00:00 AM EST - 04/02/2021 12:00:00 AM EDT NORM ([facility]) [id number] Clinical finding Clinical Finding Problem 12:00:00 AM EST - 01/15/2021 12:00:00 AM EDT NORM ([facility]) [id number] Left upper quadrant pain Left Upper Quadrant Pain Prob ken 10/24/2019 12:00:00 AM EST - 01/15/2021 12:00:00 AM EDT [place] ([facility]) [id number] Exacerbation of intermittent asthma Exac erbation of Intermittent Asthma Problem 10/24/2019 12:00:00 AM EST - 01/15/2021 12:00:00 AM EDT [place] ([facility]) [id number] Clinical finding Clinical Finding Problem 12:00:00 AM EST - 01/15/2021 12:00:00 AM EDT NORM ([facility]) [id number] Left upper quadrant pain Left Upper Quadrant Pain Prob ken 10/24/2019 12:00:00 AM EST - 01/15/2021 12:00:00 AM EDT [place] ([facility]) [id number] Exacerbation of intermittent asthma Exac erbation of Intermittent Asthma Problem 10/24/2019 12:00:00 AM EST - 01/15/2021 12:00:00 AM EDT [place] ([facility]) [id number] Clinical finding Clinical Finding Problem 12:00:00 AM EST - 01/15/2021 12:00:00 AM EDT [place] ([facility]) Surgeries/Procedures Procedure Description Date Indications Data Source(s) OFFICE OUTPATIENT VISIT 15 MINUTES 07/20/2021 12:00:00 AM EST [facility] ([facility], [facility]) Remove Impact Cerumen Irrigati 03/05/2021 12:00:00 AM EDT [facility] ([facility], [facility]) OFFICE OUTPATIENT VISIT 15 MINUTES 03/05/2021 12:00:00 AM EDT [facility] ([facility], [facility]) XR, kidney + ureter + bladder 10/26/2020 12:00:[address] [place] ([facility]) XR, kidney + ureter + bladder 10/26/2020 12:00:[address] [place] ([facility]) XR, kidney + ureter + bladder 10/26/2020 12:00:[address] [place] ([facility]) XR, kidney + ureter + bladder 10/26/2020 12:00:[address] [place] ([facility]) XR, kidney + ureter + bladder 10/26/2020 12:00:[address] NORM ([facility]) XR, kidney + ureter + bladder 10/26/2020 12:00:[address] NORM ([facility]) XR, kidney + ureter + bladder 10/26/2020 12:00:[address] NORM ([facility]) XR, kidney + ureter + bladder 10/26/2020 12:00:[address] [place] ([facility]) XR, kidney + ureter + bladder 10/26/2020 12:00:[address] [place] ([facility]) exercise stress test 10/10/2020 12:00:00 AM EST NORM ([facility]) exercise stress test 10/10/2020 12:00:00 AM EST NORM ([facility]) exercise stress test 10/10/2020 12:00:00 AM EST NORM ([facility]) exercise stress test 10/10/2020 12:00:00 AM EST NORM ([facility]) exercise stress test 10/10/2020 12:00:00 AM EST NORM ([facility]) exercise stress test 10/10/2020 12:00:00 AM EST NORM ([facility]) exercise stress test 10/10/2020 12:00:00 AM EST NORM ([facility]) exercise stress test 10/10/2020 12:00:00 AM EST NORM ([facility]) exercise stress test 10/10/2020 12:00:00 AM EST NORM ([facility]) exercise stress test 10/10/2020 12:00:00 AM EST NORM ([facility]) exercise stress test 10/10/2020 12:00:00 AM EST NORM ([facility]) Results ID Date Data Source [id number] 07/20/2021 12:00:00 AM EST [facility] Name Value Range Interpretation Code Description Data Jania rce(s) Supporting Document(s) SARS-CoV2 Rapid Antigen Positive [facility] This lab was reported by [facility]. ID Date Data Source [id number] 07/20/2021 12:00:00 AM EST [facility] Name Value Range Interpretation Code Description Data Jania rce(s) Supporting Document(s) SARS-CoV2 Rapid Antigen Positive [facility] This lab was reported by [facility]. ID Date Data Source [id number] 07/02/2021 10:29:00 AM EST [facility] Name Value Range Interpretation Code Description Data Jania rce(s) Supporting Document(s) SARS coronavirus 2 RNA [Presence] in Res piratory specimen by JAMMIE with probe detection NEGATIVE [facility] This lab was ordered by [facility] [employer] [facility] a nd reported by [employer]. ID Date Data Source [id number] 06/03/2021 09:35:00 AM EDT [facility]) Name Value Range Interpretation Code Description Data Jania rce(s) Supporting Document(s) Thyrotropin [Units/volume] in Serum or Plasma 2.95 mIU/L 0.40-4.50 Tsh [facility]) ID Date Data Source [id number] 04/02/2021 10:30:00 AM EDT [facility]) Name Value Range Interpretation Code Description Data Jania rce(s) Supporting Document(s) Bacteria identified in Throat by Culture see note Culture, Throat [facility]) ID Date Data Source [id number] 04/02/2021 10:30:00 AM EDT [facility]) Name Value Range Interpretation Code Description Data Jania rce(s) Supporting Document(s) Bacteria identified in Throat by Culture see note Culture, Throat [facility]) ID Date Data Source [id number] 04/02/2021 10:30:00 AM EDT [facility]) Name Value Range Interpretation Code Description Data Jania rce(s) Supporting Document(s) Bacteria identified in Throat by Culture see note Culture, Throat [facility]) ID Date Data Source [id number] 04/02/2021 10:07:00 AM EDT [facility]) Name Value Range Interpretation Code Description Data Jania rce(s) Supporting Document(s) sars-cov-2 negative negative Sars-cov-2 [facility]) ID Date Data Source [id number] 04/02/2021 10:07:00 AM EDT [facility]) Name Value Range Interpretation Code Description Data Jania rce(s) Supporting Document(s) sars-cov-2 negative negative Sars-cov-2 [place] ([facility]) ID Date Data Source [id number] 04/02/2021 10:07:00 AM EDT [facility]) Name Value Range Interpretation Code Description Data Jania rce(s) Supporting Document(s) sars-cov-2 negative negative Sars-cov-2 [facility]) ID Date Data Source [id number] 04/02/2021 10:07:00 AM EDT [facility]) Name Value Range Interpretation Code Description Data Jania rce(s) Supporting Document(s) sars-cov-2 negative negative Sars-cov-2 [facility]) ID Date Data Source [id number] 04/02/2021 09:00:00 AM EDT [facility] Name Value Range Interpretation Code Description Data Jania rce(s) Supporting Document(s) SARS coronavirus 2 RdRp gene [Presence] in Respiratory specimen by JAMMIE with probe detection Not detected [facility] This lab was ordered by [facility] and reported by [facility]. ID Date Data Source [id number] 03/11/2021 10:12:00 AM EDT [place] ([facility]) Name Value Range Interpretation Code Description Data Jania rce(s) Supporting Document(s) Calcidiol [Mass/volume] in Serum or Plasma 12 NG/mL 30-100 Below low normal Vitamin D,25-Oh,total,ia [place] ([facility]) ID Date Data Source [id number] 03/11/2021 10:12:00 AM EDT [place] ([facility]) Name Value Range Interpretation Code Description Data Jania rce(s) Supporting Document(s) Thyroxine (T4) free [Mass/volume] in Serum or Plasma 0.9 NG/dL 0 .8-1.8 T4, Free [place] ([facility]) Thyrotropin [Units/volume] in Serum or Plasma 4.52 mIU/L 0. 40-4.50 Above high normal Tsh [place] ([facility]) ID Date Data Source [id number] 03/11/2021 10:12:00 AM EDT [place] ([facility]) Name Value Range Interpretation Code Description Data Jania rce(s) Supporting Document(s) Calcidiol [Mass/volume] in Serum or Plasma 12 NG/mL 30-100 Below low normal Vitamin D,25-Oh,total,ia [place] ([facility]) ID Date Data Source [id number] 03/11/2021 10:12:00 AM EDT [facility]) Name Value Range Interpretation Code Description Data Jania rce(s) Supporting Document(s) Thyrotropin [Units/volume] in Serum or Plasma 4.52 mIU/L 0. 40-4.50 Above high normal Tsh [place] ([facility]) Thyroxine (T4) free [Mass/volume] in Serum or Plasma 0.9 NG/dL 0 .8-1.8 T4, Free [place] ([facility]) ID Date Data Source [id number] 01/08/2021 09:23:00 AM EDT [facility]) Name Value Range Interpretation Code Description Data Jania rce(s) Supporting Document(s) ID Date Data Source [id number] 01/08/2021 09:23:00 AM EDT [facility]) Name Value Range Interpretation Code Description Data Jania rce(s) Supporting Document(s) ID Date Data Source [id number] 01/08/2021 09:23:00 AM EDT [facility]) Name Value Range Interpretation Code Description Data Jania rce(s) Supporting Document(s) ID Date Data Source [id number] 01/08/2021 09:23:00 AM EDT [facility]) Name Value Range Interpretation Code Description Data Jania rce(s) Supporting Document(s) ID Date Data Source [id number] 01/08/2021 09:23:00 AM EDT [facility]) Name Value Range Interpretation Code Description Data Jania rce(s) Supporting Document(s) ID Date Data Source [id number] 01/08/2021 09:23:00 AM EDT [facility]) Name Value Range Interpretation Code Description Data Jania rce(s) Supporting Document(s) ID Date Data Source [id number] 01/08/2021 09:23:00 AM EDT [facility]) Name Value Range Interpretation Code Description Data Jania rce(s) Supporting Document(s) ID Date Data Source [id number] 01/08/2021 09:23:00 AM EDT [facility]) Name Value Range Interpretation Code Description Data Jania rce(s) Supporting Document(s) ID Date Data Source [id number] 01/08/[facility]21 [facility] Name Value Range Interpretation Code Description Data Jania rce(s) Supporting Document(s) ID Date Data Source [id number] 01/08/2021 09:23:[facility] Name Value Range Interpretation Code Description Data Jania rce(s) Supporting Document(s) ID Date Data Source [id number] 01/08/2021 09:23:[facility] Name Value Range Interpretation Code Description Data Jania rce(s) Supporting Document(s) ID Date Data Source [id number] 01/08/2021 09:23:[facility] Name Value Range Interpretation Code Description Data Jania rce(s) Supporting Document(s) ID Date Data Source [id number] 01/08/2021 09:23:00 [facility] Name Value Range Interpretation Code Description Data Jania rce(s) Supporting Document(s) ID Date Data Source [id number] 01/08/2021 09:23:00 AM EDT [facility]) Name Value Range Interpretation Code Description Data Jania rce(s) Supporting Document(s) ID Date Data Source [id number] 01/08/2021 09:23:00 AM EDT [facility]) Name Value Range Interpretation Code Description Data Jania rce(s) Supporting Document(s) ID Date Data Source [id number] 01/08/2021 09:23[facility] Name Value Range Interpretation Code Description Data Jania rce(s) Supporting Document(s) ID Date Data Source [id number] 01/08/2021 09:23:00 [facility] Name Value Range Interpretation Code Description Data Jania rce(s) Supporting Document(s) ID Date Data Source [id number] 01/08/2021 09:23:00 [facility] Name Value Range Interpretation Code Description Data Jania rce(s) Supporting Document(s) ID Date Data Source [id number] 01/08/2021 09:23:00 [facility] Name Value Range Interpretation Code Description Data Jania rce(s) Supporting Document(s) ID Date Data Source [id number] 01/08/2021 09:23:[facility] Name Value Range Interpretation Code Description Data Jania rce(s) Supporting Document(s) ID Date Data Source [id number] 01/08/2021 09:23:00 [facility] Name Value Range Interpretation Code Description Data Jania rce(s) Supporting Document(s) ID Date Data Source [id number] 01/08/2021 09:23:00 AM EDT [facility]) Name Value Range Interpretation Code Description Data Jania rce(s) Supporting Document(s) ID Date Data Source [id number] 01/08/2021 09:23:00 AM EDT [facility]) Name Value Range Interpretation Code Description Data Jania rce(s) Supporting Document(s) ID Date Data Source [id number] 01/08/2021 09:23:00 AM EDT [place] ([facility]) Name Value Range Interpretation Code Description Data Jania rce(s) Supporting Document(s) ID Date Data Source [id number] 10/22/2020 10:14:00 AM EST [facility]) Name Value Range Interpretation Code Description Data Jania rce(s) Supporting Document(s) glucose, fasting 81 mg/dL 70-100 Glucose, Fasting AT [facility] ([facility]) blood urea nitrogen 12 mg/dL 7-18 Blood Urea Nitro gen [place] ([facility]) glomerular filtration rate > 60.0 >60 Glomerula r Filtration Rate [place] ([facility]) creatinine for GFR 1.10 mg/dL 0.70-1.30 Creatinine for GF R [place] ([facility]) sodium level 138 mEq/L 136-145 Sodium Level NORM ([facility]) potassium serum 4.3 mEq/L 3.5-5.1 Potassium Serum ATH NA ([facility]) carbon dioxide level 32 mEq/L 21-32 Carbon Dioxide Level [place] ([facility]) anion gap 2 mEq/L 8-16 Below low normal Anion Gap [place] ( [facility]) chloride level 104 mEq/L 98-107 Chloride Level [facility]) calcium level 9.0 mg/dL 8.5-10.1 Calcium Level [facility]) ID Date Data Source [id number] 10/22/2020 10:14:00 AM EST [facility]) Name Value Range Interpretation Code Description Data Jania rce(s) Supporting Document(s) glucose, fasting 81 mg/dL 70-100 Glucose, Fasting AT [facility] ([facility]) blood urea nitrogen 12 mg/dL 7-18 Blood Urea Nitro gen NORM ([facility]) creatinine for GFR 1.10 mg/dL 0.70-1.30 Creatinine for GF R NORM ([facility]) glomerular filtration rate > 60.0 >60 Glomerula r Filtration Rate NORM ([facility]) sodium level 138 mEq/L 136-145 Sodium Level NORM ([facility]) potassium serum 4.3 mEq/L 3.5-5.1 Potassium Serum ATHE NA ([facility]) carbon dioxide level 32 mEq/L 21-32 Carbon Dioxide Level NORM ([facility]) chloride level 104 mEq/L 98-107 Chloride Level [place] ([facility]) anion gap 2 mEq/L 8-16 Below low normal Anion Gap [place] ( [facility]) calcium level 9.0 mg/dL 8.5-10.1 Calcium Level [place] ( [facility]) ID Date Data Source [id number] 10/22/2020 10:14:00 AM EST [facility]) Name Value Range Interpretation Code Description Data Jania rce(s) Supporting Document(s) glucose, fasting 81 mg/dL 70-100 Glucose, Fasting AT [facility] ([facility]) blood urea nitrogen 12 mg/dL 7-18 Blood Urea Nitro gen [place] ([facility]) creatinine for GFR 1.10 mg/dL 0.70-1.30 Creatinine for GF R [place] ([facility]) glomerular filtration rate > 60.0 >60 Glomerula r Filtration Rate NORM ([facility]) sodium level 138 mEq/L 136-145 Sodium Level NORM ([facility]) potassium serum 4.3 mEq/L 3.5-5.1 Potassium Serum ATHE NA ([facility]) chloride level 104 mEq/L 98-107 Chloride Level NORM ([facility]) carbon dioxide level 32 mEq/L 21-32 Carbon Dioxide Level NORM ([facility]) anion gap 2 mEq/L 8-16 Below low [facility] calcium level 9.0 mg/dL 8.5-10.1 Calcium Level [place] ( [facility]) ID Date Data Source [id number] 10/22/2020 10:14:00 AM EST [place] ([facility]) Name Value Range Interpretation Code Description Data Jania rce(s) Supporting Document(s) blood urea nitrogen 12 mg/dL 7-18 Blood Urea Nitro gen NORM ([facility]) glucose, fasting 81 mg/dL 70-100 Glucose, Fasting AT [facility] ([facility]) glomerular filtration rate > 60.0 >60 Glomerula r Filtration Rate [place] ([facility]) creatinine for GFR 1.10 mg/dL 0.70-1.30 Creatinine for GF R [place] ([facility]) potassium serum 4.3 mEq/L 3.5-5.1 Potassium Serum ATHE ([facility]) sodium level 138 mEq/L 136-145 Sodium Level NORM ([facility]) chloride level 104 mEq/L 98-107 Chloride Level NORM ([facility]) anion gap 2 mEq/L 8-16 Below low normal Anion Gap [place] ( [facility]) carbon dioxide level 32 mEq/L 21-32 Carbon Dioxide Level [place] ([facility]) calcium level 9.0 mg/dL 8.5-10.1 Calcium Level [facility]) ID Date Data Source [id number] 10/22/2020 10:14:00 AM EST [place] ([facility]) Name Value Range Interpretation Code Description Data Jania rce(s) Supporting Document(s) glucose, fasting 81 mg/dL 70-100 Glucose, Fasting AT [facility] ([facility]) creatinine for GFR 1.10 mg/dL 0.70-1.30 Creatinine for GF R [place] ([facility]) blood urea nitrogen 12 mg/dL 7-18 Blood Urea Nitro gen NORM ([facility]) glomerular filtration rate > 60.0 >60 Glomerula r Filtration Rate NORM ([facility]) sodium level 138 mEq/L 136-145 Sodium Level NORM ([facility]) potassium serum 4.3 mEq/L 3.5-5.1 Potassium Serum ATHE NA ([facility]) carbon dioxide level 32 mEq/L 21-32 Carbon Dioxide Level NORM ([facility]) chloride level 104 mEq/L 98-107 Chloride Level NORM ([facility]) anion gap 2 mEq/L 8-16 Below low normal Anion Gap NORM ( [facility]) calcium level 9.0 mg/dL 8.5-10.1 Calcium Level NORM ( [facility]) ID Date Data Source [id number] 10/22/2020 10:14:00 AM EST [facility]) Name Value Range Interpretation Code Description Data Jania rce(s) Supporting Document(s) glucose, fasting 81 mg/dL 70-100 Glucose, Fasting AT [facility]) blood urea nitrogen 12 mg/dL 7-18 Blood Urea Nitro gen [place] ([facility]) creatinine for GFR 1.10 mg/dL 0.70-1.30 Creatinine for GF R NORM ([facility]) glomerular filtration rate > 60.0 >60 Glomerula r Filtration Rate NORM ([facility]) sodium level 138 mEq/L 136-145 Sodium Level NORM ([facility]) potassium serum 4.3 mEq/L 3.5-5.1 Potassium Serum ATHE NA ([facility]) chloride level 104 mEq/L 98-107 Chloride Level NORM ([facility]) carbon dioxide level 32 mEq/L 21-32 Carbon Dioxide Level NORM ([facility]) calcium level 9.0 mg/dL 8.5-10.1 Calcium Level NORM ( [facility]) anion gap 2 mEq/L 8-16 Below low normal Anion Gap NORM ( [facility]) ID Date Data Source [id number] 10/22/2020 10:14:00 AM EST [facility]) Name Value Range Interpretation Code Description Data Jania rce(s) Supporting Document(s) glucose, fasting 81 mg/dL 70-100 Glucose, Fasting AT [facility] ([facility]) creatinine for GFR 1.10 mg/dL 0.70-1.30 Creatinine for GF R NORM ([facility]) blood urea nitrogen 12 mg/dL 7-18 Blood Urea Nitro gen NORM ([facility]) glomerular filtration rate > 60.0 >60 Glomerula r Filtration Rate NORM ([facility]) chloride level 104 mEq/L 98-107 Chloride Level NORM ([facility]) potassium serum 4.3 mEq/L 3.5-5.1 Potassium Serum ATHE NA ([facility]) sodium level 138 mEq/L 136-145 Sodium Level [place] ([facility]) carbon dioxide level 32 mEq/L 21-32 Carbon Dioxide Level [place] ([facility]) anion gap 2 mEq/L 8-16 Below low normal Anion Gap [place] ( [facility]) calcium level 9.0 mg/dL 8.5-10.1 Calcium Level [facility]) ID Date Data Source [id number] 10/22/2020 10:14:00 AM EST [facility]) Name Value Range Interpretation Code Description Data Jania rce(s) Supporting Document(s) blood urea nitrogen 12 mg/dL 7-18 Blood Urea Nitro gen NORM ([facility]) glucose, fasting 81 mg/dL 70-100 Glucose, Fasting AT [facility] ([facility]) glomerular filtration rate > 60.0 >60 Glomerula r Filtration Rate NORM ([facility]) creatinine for GFR 1.10 mg/dL 0.70-1.30 Creatinine for GF R NORM ([facility]) potassium serum 4.3 mEq/L 3.5-5.1 Potassium Serum ATHE NA ([facility]) chloride level 104 mEq/L 98-107 Chloride Level NORM ([facility]) sodium level 138 mEq/L 136-145 Sodium Level NORM ([facility]) anion gap 2 mEq/L 8-16 Below low normal Anion Gap NORM ( [facility]) carbon dioxide level 32 mEq/L 21-32 Carbon Dioxide Level NORM ([facility]) calcium level 9.0 mg/dL 8.5-10.1 Calcium Level [place] ( [facility]) ID Date Data Source [id number] 10/22/2020 10:14:00 AM EST [facility]) Name Value Range Interpretation Code Description Data Jania rce(s) Supporting Document(s) glucose, fasting 81 mg/dL 70-100 Glucose, Fasting AT [facility]) blood urea nitrogen 12 mg/dL 7-18 Blood Urea Nitro gen [place] ([facility]) glomerular filtration rate > 60.0 >60 Glomerula r Filtration Rate [place] ([facility]) sodium level 138 mEq/L 136-145 Sodium Level NORM ([facility]) creatinine for GFR 1.10 mg/dL 0.70-1.30 Creatinine for GF R [place] ([facility]) chloride level 104 mEq/L 98-107 Chloride Level [place] ([facility]) potassium serum 4.3 mEq/L 3.5-5.1 Potassium Serum ATH NA ([facility]) anion gap 2 mEq/L 8-16 Below low normal Anion Gap [place] ( [facility]) carbon dioxide level 32 mEq/L 21-32 Carbon Dioxide Level [place] ([facility]) calcium level 9.0 mg/dL 8.5-10.1 Calcium Level [place] ( [facility]) ID Date Data Source [id number] 09/13/2020 05:35:00 PM EST NORM ([facility]) Name Value Range Interpretation Code Description Data Jania rce(s) Supporting Document(s) lipase 179 U/L 73-393 Lipase [facility]) ID Date Data Source [id number] 09/13/2020 [facility]:35[facility] Name Value Range Interpretation Code Description Data Jania rce(s) Supporting Document(s) blood urea nitrogen 10 mg/dL 7-18 Blood Urea Nitro gen NORM ([facility]) glucose, fasting 93 mg/dL 70-100 Glucose, Fasting AT [facility] ([facility]) creatinine for GFR 1.03 mg/dL 0.70-1.30 Creatinine for GF R NORM ([facility]) sodium level 140 mEq/L 136-145 Sodium Level NORM ([facility]) potassium serum 3.3 mEq/L 3.5-5.1 Below low normal Potassium Seru m NORM ([facility]) glomerular filtration rate > 60.0 >60 Glomerula r Filtration Rate NORM ([facility]) chloride level 101 mEq/L 98-107 Chloride Level [place] ([facility]) anion gap 10 mEq/L 8-16 Anion Gap [place] ([facility]) carbon dioxide level 29 mEq/L 21-32 Carbon Dioxide Level [place] ([facility]) calcium level 9.4 mg/dL 8.5-10.1 Calcium Level [place] ( [facility]) ID Date Data Source [id number] 09/13/2020 05:35:00 PM EST [place] ([facility]) Name Value Range Interpretation Code Description Data Jania rce(s) Supporting Document(s) ALT/SGPT 29 U/L 12-78 ALT/SGPT [place] ([facility]) AST/SGOT 16 U/L 7-37 AST/SGOT [place] ([facility]) alkaline phosphatase 72 U/L 45-117 Alkaline Phosph atase NORM ([facility]) bilirubin,total 0.4 mg/dL 0.2-1.0 Bilirubin,total ATH NA ([facility]) bilirubin,direct < 0.1 0.0-0.2 Bilirubin,direct AT [facility] ([facility]) albumin/globulin ratio Albumin/globu veda Ratio NORM ([facility]) total protein 8.1 gm/dL 6.4-8.2 Total Protein NORM ( [facility]) albumin 4.7 gm/dL 3.2-5.2 Albumin [place] ([facility]) ID Date Data Source [id number] 09/13/2020 05:35:00 PM EST NORM ([facility]) Name Value Range Interpretation Code Description Data Jania rce(s) Supporting Document(s) CK-mb value mass 1.3 NG/mL <3.6 CK-mb Value Mass AT [facility] ([facility]) CPK creatine phosphokinase 136 U/L 39-308 CPK Creat ine Phosphokinase NORM ([facility]) mb/CK relative index < or =4 mb/CK Relative Index NORM ([facility]) troponin I < 0.02 < 0.10 Troponin I NORM ([facility]) ID Date Data Source [id number] 09/13/2020 05:35:00 PM EST NORM ([facility]) Name Value Range Interpretation Code Description Data Jania rce(s) Supporting Document(s) D-dimer quant < 270 <500 D-dimer Quant NORM ( [facility]) ID Date Data Source [id number] 09/13/2020 05:35:00 PM EST [place] ([facility]) Name Value Range Interpretation Code Description Data Jania rce(s) Supporting Document(s) prothrombin time 13.1 seconds 12.5-14.3 Prothrombin Time NORM ([facility]) partial thromboplastin time 31.0 seconds 24.2-38.5 Partial Thromboplastin Time NORM ([facility]) INR Inr NORM ([facility]) ID Date Data Source [id number] 09/13/2020 05:35:00 PM EST NORM ([facility]) Name Value Range Interpretation Code Description Data Jania rce(s) Supporting Document(s) lipase 179 U/L 73-393 Lipase NORM ([facility]) ID Date Data Source [id number] 09/13/2020 05:35:00 PM EST NORM ([facility]) Name Value Range Interpretation Code Description Data Jania rce(s) Supporting Document(s) glucose, fasting 93 mg/dL 70-100 Glucose, Fasting AT [facility] ([facility]) blood urea nitrogen 10 mg/dL 7-18 Blood Urea Nitro gen NORM ([facility]) sodium level 140 mEq/L 136-145 Sodium Level NORM ([facility]) glomerular filtration rate > 60.0 >60 Glomerula r Filtration Rate NORM ([facility]) creatinine for GFR 1.03 mg/dL 0.70-1.30 Creatinine for GF R [place] ([facility]) potassium serum 3.3 mEq/L 3.5-5.1 Below low normal Potassium Seru m [place] ([facility]) carbon dioxide level 29 mEq/L 21-32 Carbon Dioxide Level [place] ([facility]) chloride level 101 mEq/L 98-107 Chloride Level [place] ([facility]) anion gap 10 mEq/L 8-16 Anion Gap [place] ([facility]) calcium level 9.4 mg/dL 8.5-10.1 Calcium Level [place] ( [facility]) ID Date Data Source [id number] 09/13/2020 05:35:00 PM EST NORM ([facility]) Name Value Range Interpretation Code Description Data Jania rce(s) Supporting Document(s) AST/SGOT 16 U/L 7-37 AST/SGOT NORM ([facility]) alkaline phosphatase 72 U/L 45-117 Alkaline Phosph atase NORM ([facility]) ALT/SGPT 29 U/L 12-78 ALT/SGPT NORM ([facility]) bilirubin,total 0.4 mg/dL 0.2-1.0 Bilirubin,total ATHE NA ([facility]) total protein 8.1 gm/dL 6.4-8.2 Total Protein NORM ( [facility]) bilirubin,direct < 0.1 0.0-0.2 Bilirubin,direct AT [facility]) albumin 4.7 gm/dL 3.2-5.2 Albumin NROM ([facility]) albumin/globulin ratio Albumin/globu veda Ratio NORM ([facility]) ID Date Data Source [id number] 09/13/2020 05:35:00 PM EST NORM ([facility]) Name Value Range Interpretation Code Description Data Jania rce(s) Supporting Document(s) CPK creatine phosphokinase 136 U/L 39-308 CPK Creat ine Phosphokinase NORM ([facility]) CK-mb value mass 1.3 NG/mL <3.6 CK-mb Value Mass AT [facility] ([facility]) mb/CK relative index < or =4 mb/CK Relative Index NORM ([facility]) troponin I < 0.02 < 0.10 Troponin I NORM ([facility]) ID Date Data Source [id number] 09/13/2020 05:35:00 PM EST NORM ([facility]) Name Value Range Interpretation Code Description Data Jania rce(s) Supporting Document(s) D-dimer quant < 270 <500 D-dimer Quant NORM ( [facility]) ID Date Data Source [id number] 09/13/2020 05:35:00 PM EST NORM ([facility]) Name Value Range Interpretation Code Description Data Jania rce(s) Supporting Document(s) prothrombin time 13.1 seconds 12.5-14.3 Prothrombin Time NORM ([facility]) INR Inr NORM ([facility]) partial thromboplastin time 31.0 seconds 24.2-38.5 Partial Thromboplastin Time NORM ([facility]) ID Date Data Source [id number] 09/13/2020 05:35:00 PM EST NORM ([facility]) Name Value Range Interpretation Code Description Data Jania rce(s) Supporting Document(s) lipase 179 U/L 73-393 Lipase NORM ([facility]) ID Date Data Source [id number] 09/13/2020 05:35:00 PM EST NORM ([facility]) Name Value Range Interpretation Code Description Data Jania rce(s) Supporting Document(s) glucose, fasting 93 mg/dL 70-100 Glucose, Fasting AT [facility] ([facility]) blood urea nitrogen 10 mg/dL 7-18 Blood Urea Nitro gen NORM ([facility]) creatinine for GFR 1.03 mg/dL 0.70-1.30 Creatinine for GF R [place] ([facility]) glomerular filtration rate > 60.0 >60 Glomerula r Filtration Rate [place] ([facility]) sodium level 140 mEq/L 136-145 Sodium Level [place] ([facility]) potassium serum 3.3 mEq/L 3.5-5.1 Below low normal Potassium Seru m [place] ([facility]) chloride level 101 mEq/L 98-107 Chloride Level [place] ([facility]) anion gap 10 mEq/L 8-16 Anion Gap [place] ([facility]) carbon dioxide level 29 mEq/L 21-32 Carbon Dioxide Level [place] ([facility]) calcium level 9.4 mg/dL 8.5-10.1 Calcium Level [place] ( [facility]) ID Date Data Source [id number] 09/13/2020 05:35:00 PM EST NORM ([facility]) Name Value Range Interpretation Code Description Data Jania rce(s) Supporting Document(s) alkaline phosphatase 72 U/L 45-117 Alkaline Phosph atase NORM ([facility]) AST/SGOT 16 U/L 7-37 AST/SGOT [place] ([facility]) ALT/SGPT 29 U/L 12-78 ALT/SGPT [place] ([facility]) bilirubin,direct < 0.1 0.0-0.2 Bilirubin,direct AT [facility] ([facility]) bilirubin,total 0.4 mg/dL 0.2-1.0 Bilirubin,total ATHE NA ([facility]) total protein 8.1 gm/dL 6.4-8.2 Total Protein NORM ( [facility]) albumin 4.7 gm/dL 3.2-5.2 Albumin NORM ([facility]) albumin/globulin ratio Albumin/globu veda Ratio NORM ([facility]) ID Date Data Source [id number] 09/13/2020 05:35:00 PM EST NORM ([facility]) Name Value Range Interpretation Code Description Data Jania rce(s) Supporting Document(s) CPK creatine phosphokinase 136 U/L 39-308 CPK Creat ine Phosphokinase NORM ([facility]) CK-mb value mass 1.3 NG/mL <3.6 CK-mb Value Mass AT [place] ([facility]) mb/CK relative index < or =4 mb/CK Relative Index NORM ([facility]) troponin I < 0.02 < 0.10 Troponin I NORM ([facility]) ID Date Data Source [id number] 09/13/2020 05:35:00 PM EST NORM ([facility]) Name Value Range Interpretation Code Description Data Jania rce(s) Supporting Document(s) D-dimer quant < 270 <500 D-dimer Quant NORM ( [facility]) ID Date Data Source [id number] 09/13/2020 05:35:00 PM EST NORM ([facility]) Name Value Range Interpretation Code Description Data Jania rce(s) Supporting Document(s) prothrombin time 13.1 seconds 12.5-14.3 Prothrombin Time NORM ([facility]) INR Inr NORM ([facility]) partial thromboplastin time 31.0 seconds 24.2-38.5 Partial Thromboplastin Time NORM ([facility]) ID Date Data Source [id number] 09/13/2020 05:35:00 PM EST NORM ([facility]) Name Value Range Interpretation Code Description Data Jania rce(s) Supporting Document(s) lipase 179 U/L 73-393 Lipase NORM ([facility]) ID Date Data Source [id number] 09/13/2020 05:35:00 PM EST NORM ([facility]) Name Value Range Interpretation Code Description Data Jania rce(s) Supporting Document(s) glucose, fasting 93 mg/dL 70-100 Glucose, Fasting AT [facility]) creatinine for GFR 1.03 mg/dL 0.70-1.30 Creatinine for GF R [place] ([facility]) blood urea nitrogen 10 mg/dL 7-18 Blood Urea Nitro gen [place] ([facility]) glomerular filtration rate > 60.0 >60 Glomerula r Filtration Rate NORM ([facility]) sodium level 140 mEq/L 136-145 Sodium Level NORM ([facility]) chloride level 101 mEq/L 98-107 Chloride Level [place] ([facility]) potassium serum 3.3 mEq/L 3.5-5.1 Below low normal Potassium Seru m [place] ([facility]) anion gap 10 mEq/L 8-16 Anion Gap [place] ([facility]) calcium level 9.4 mg/dL 8.5-10.1 Calcium Level [place] ( [facility]) carbon dioxide level 29 mEq/L 21-32 Carbon Dioxide Level [place] ([facility]) ID Date Data Source [id number] 09/13/2020 05:35:00 PM EST NORM ([facility]) Name Value Range Interpretation Code Description Data Jania rce(s) Supporting Document(s) AST/SGOT 16 U/L 7-37 AST/SGOT NORM ([facility]) ALT/SGPT 29 U/L 12-78 ALT/SGPT NORM ([facility]) alkaline phosphatase 72 U/L 45-117 Alkaline Phosph atase NORM ([facility]) bilirubin,total 0.4 mg/dL 0.2-1.0 Bilirubin,total ATHE NA ([facility]) bilirubin,direct < 0.1 0.0-0.2 Bilirubin,direct AT [facility] ([facility]) albumin 4.7 gm/dL 3.2-5.2 Albumin NORM ([facility]) total protein 8.1 gm/dL 6.4-8.2 Total Protein NORM ( [facility]) albumin/globulin ratio Albumin/globu veda Ratio NORM ([facility]) ID Date Data Source [id number] 09/13/2020 05:35:00 PM EST NORM ([facility]) Name Value Range Interpretation Code Description Data Jania rce(s) Supporting Document(s) CPK creatine phosphokinase 136 U/L 39-308 CPK Creat ine Phosphokinase NORM ([facility]) CK-mb value mass 1.3 NG/mL <3.6 CK-mb Value Mass AT [facility] ([facility]) mb/CK relative index < or =4 mb/CK Relative Index NORM ([facility]) troponin I < 0.02 < 0.10 Troponin I NORM ([facility]) ID Date Data Source [id number] 09/13/2020 05:35:00 PM EST NORM ([facility]) Name Value Range Interpretation Code Description Data Jania rce(s) Supporting Document(s) D-dimer quant < 270 <500 D-dimer Quant NORM ( [facility]) ID Date Data Source [id number] 09/13/2020 05:35:00 PM EST NORM ([facility]) Name Value Range Interpretation Code Description Data Jania rce(s) Supporting Document(s) prothrombin time 13.1 seconds 12.5-14.3 Prothrombin Time NORM ([facility]) partial thromboplastin time 31.0 seconds 24.2-38.5 Partial Thromboplastin Time NORM ([facility]) INR Inr NORM ([facility]) ID Date Data Source [id number] 09/13/2020 05:35:00 PM EST NORM ([facility]) Name Value Range Interpretation Code Description Data Jania rce(s) Supporting Document(s) lipase 179 U/L 73-393 Lipase NORM ([facility]) ID Date Data Source [id number] 09/13/2020 05:35:00 PM EST NORM ([facility]) Name Value Range Interpretation Code Description Data Jania rce(s) Supporting Document(s) glucose, fasting 93 mg/dL 70-100 Glucose, Fasting AT [facility]) blood urea nitrogen 10 mg/dL 7-18 Blood Urea Nitro gen [place] ([facility]) creatinine for GFR 1.03 mg/dL 0.70-1.30 Creatinine for GF R [place] ([facility]) glomerular filtration rate > 60.0 >60 Glomerula r Filtration Rate NORM ([facility]) carbon dioxide level 29 mEq/L 21-32 Carbon Dioxide Level [place] ([facility]) potassium serum 3.3 mEq/L 3.5-5.1 Below low normal Potassium Seru m [place] ([facility]) sodium level 140 mEq/L 136-145 Sodium Level NORM ([facility]) chloride level 101 mEq/L 98-107 Chloride Level NORM ([facility]) calcium level 9.4 mg/dL 8.5-10.1 Calcium Level [place] ( [facility]) anion gap 10 mEq/L 8-16 Anion Gap NORM ([facility]) ID Date Data Source [id number] 09/13/2020 05:35:00 PM EST NORM ([facility]) Name Value Range Interpretation Code Description Data Jania rce(s) Supporting Document(s) alkaline phosphatase 72 U/L 45-117 Alkaline Phosph atase NORM ([facility]) AST/SGOT 16 U/L 7-37 AST/SGOT NORM ([facility]) ALT/SGPT 29 U/L 12-78 ALT/SGPT NORM ([facility]) bilirubin,total 0.4 mg/dL 0.2-1.0 Bilirubin,total ATHE ([facility]) bilirubin,direct < 0.1 0.0-0.2 Bilirubin,direct AT [facility] ([facility]) total protein 8.1 gm/dL 6.4-8.2 Total Protein NORM ( [facility]) albumin/globulin ratio Albumin/globu veda Ratio NORM ([facility]) albumin 4.7 gm/dL 3.2-5.2 Albumin NORM ([facility]) ID Date Data Source [id number] 09/13/2020 05:35:00 PM EST NORM ([facility]) Name Value Range Interpretation Code Description Data Jania rce(s) Supporting Document(s) mb/CK relative index < or =4 mb/CK Relative Index NORM ([facility]) CK-mb value mass 1.3 NG/mL <3.6 CK-mb Value Mass AT [facility] ([facility]) CPK creatine phosphokinase 136 U/L 39-308 CPK Creat ine Phosphokinase NORM ([facility]) troponin I < 0.02 < 0.10 Troponin I NORM ([facility]) ID Date Data Source [id number] 09/13/2020 05:35:00 PM EST NORM ([facility]) Name Value Range Interpretation Code Description Data Jania rce(s) Supporting Document(s) D-dimer quant < 270 <500 D-dimer Quant NORM ( [facility]) ID Date Data Source [id number] 09/13/2020 [facility]:35[facility] Name Value Range Interpretation Code Description Data Jania rce(s) Supporting Document(s) prothrombin time 13.1 seconds 12.5-14.3 Prothrombin Time NORM ([facility]) partial thromboplastin time 31.0 seconds 24.2-38.5 Partial Thromboplastin Time NORM ([facility]) INR Inr NORM ([facility]) ID Date Data Source [id number] 09/13/2020 05:35:00 PM EST NORM ([facility]) Name Value Range Interpretation Code Description Data Jania rce(s) Supporting Document(s) lipase 179 U/L 73-393 Lipase NORM ([facility]) ID Date Data Source [id number] 09/13/2020 05:35:00 PM EST NORM ([facility]) Name Value Range Interpretation Code Description Data Jania rce(s) Supporting Document(s) glucose, fasting 93 mg/dL 70-100 Glucose, Fasting AT [facility]) blood urea nitrogen 10 mg/dL 7-18 Blood Urea Nitro gen NORM ([facility]) creatinine for GFR 1.03 mg/dL 0.70-1.30 Creatinine for GF R NORM ([facility]) glomerular filtration rate > 60.0 >60 Glomerula r Filtration Rate NORM ([facility]) sodium level 140 mEq/L 136-145 Sodium Level NORM ([facility]) potassium serum 3.3 mEq/L 3.5-5.1 Below low normal Potassium Seru m NORM ([facility]) anion gap 10 mEq/L 8-16 Anion Gap NORM ([facility]) chloride level 101 mEq/L 98-107 Chloride Level NORM ([facility]) carbon dioxide level 29 mEq/L 21-32 Carbon Dioxide Level NORM ([facility]) calcium level 9.4 mg/dL 8.5-10.1 Calcium Level [facility]) ID Date Data Source [id number] 09/13/2020 05:35:00 [facility] Name Value Range Interpretation Code Description Data Jania rce(s) Supporting Document(s) alkaline phosphatase 72 U/L 45-117 Alkaline Phosph atase NORM ([facility]) AST/SGOT 16 U/L 7-37 AST/SGOT NORM ([facility]) ALT/SGPT 29 U/L 12-78 ALT/SGPT NORM ([facility]) bilirubin,total 0.4 mg/dL 0.2-1.0 Bilirubin,total ATHE NA ([facility]) total protein 8.1 gm/dL 6.4-8.2 Total Protein NORM ( [facility]) bilirubin,direct < 0.1 0.0-0.2 Bilirubin,direct AT [facility] ([facility]) albumin 4.7 gm/dL 3.2-5.2 Albumin NORM ([facility]) albumin/globulin ratio Albumin/globu veda Ratio NORM ([facility]) ID Date Data Source [id number] 09/13/2020 05:35:00 PM EST NORM ([facility]) Name Value Range Interpretation Code Description Data Jania rce(s) Supporting Document(s) CK-mb value mass 1.3 NG/mL <3.6 CK-mb Value Mass AT [facility] ([facility]) CPK creatine phosphokinase 136 U/L 39-308 CPK Creat ine Phosphokinase NORM ([facility]) mb/CK relative index < or =4 mb/CK Relative Index NORM ([facility]) troponin I < 0.02 < 0.10 Troponin I NORM ([facility]) ID Date Data Source [id number] 09/13/2020 05:35:00 PM EST NORM ([facility]) Name Value Range Interpretation Code Description Data Jania rce(s) Supporting Document(s) D-dimer quant < 270 <500 D-dimer Quant NORM ( [facility]) ID Date Data Source [id number] 09/13/2020 05:35:00 PM EST NORM ([facility]) Name Value Range Interpretation Code Description Data Jania rce(s) Supporting Document(s) INR Inr NORM ([facility]) prothrombin time 13.1 seconds 12.5-14.3 Prothrombin Time NORM ([facility]) partial thromboplastin time 31.0 seconds 24.2-38.5 Partial Thromboplastin Time NORM ([facility]) ID Date Data Source [id number] 09/13/2020 05:35:00 PM EST NORM ([facility]) Name Value Range Interpretation Code Description Data Jania rce(s) Supporting Document(s) lipase 179 U/L 73-393 Lipase [place] ([facility]) ID Date Data Source [id number] 09/13/2020 05:35:00 PM EST NORM ([facility]) Name Value Range Interpretation Code Description Data Jania rce(s) Supporting Document(s) glucose, fasting 93 mg/dL 70-100 Glucose, Fasting AT [facility]) blood urea nitrogen 10 mg/dL 7-18 Blood Urea Nitro gen NORM ([facility]) glomerular filtration rate > 60.0 >60 Glomerula r Filtration Rate [place] ([facility]) creatinine for GFR 1.03 mg/dL 0.70-1.30 Creatinine for GF R [place] ([facility]) chloride level 101 mEq/L 98-107 Chloride Level [place] ([facility]) sodium level 140 mEq/L 136-145 Sodium Level NORM ([facility]) potassium serum 3.3 mEq/L 3.5-5.1 Below low normal Potassium Seru m NORM ([facility]) carbon dioxide level 29 mEq/L 21-32 Carbon Dioxide Level [place] ([facility]) anion gap 10 mEq/L 8-16 Anion Gap [place] ([facility]) calcium level 9.4 mg/dL 8.5-10.1 Calcium Level [place] ( [facility]) ID Date Data Source [id number] 09/13/2020 05:35:00 PM EST NORM ([facility]) Name Value Range Interpretation Code Description Data Jania rce(s) Supporting Document(s) AST/SGOT 16 U/L 7-37 AST/SGOT NORM ([facility]) ALT/SGPT 29 U/L 12-78 ALT/SGPT NORM ([facility]) alkaline phosphatase 72 U/L 45-117 Alkaline Phosph atase NORM ([facility]) bilirubin,total 0.4 mg/dL 0.2-1.0 Bilirubin,total ATHE NA ([facility]) total protein 8.1 gm/dL 6.4-8.2 Total Protein NORM ( [facility]) bilirubin,direct < 0.1 0.0-0.2 Bilirubin,direct AT [facility] ([facility]) albumin 4.7 gm/dL 3.2-5.2 Albumin NORM ([facility]) albumin/globulin ratio Albumin/globu veda Ratio NORM ([facility]) ID Date Data Source [id number] 09/13/2020 05:35:00 PM EST NORM ([facility]) Name Value Range Interpretation Code Description Data Jania rce(s) Supporting Document(s) CPK creatine phosphokinase 136 U/L 39-308 CPK Creat ine Phosphokinase NORM ([facility]) mb/CK relative index < or =4 mb/CK Relative Index NORM ([facility]) CK-mb value mass 1.3 NG/mL <3.6 CK-mb Value Mass AT [facility] ([facility]) troponin I < 0.02 < 0.10 Troponin I NORM ([facility]) ID Date Data Source [id number] 09/13/2020 05:35:00 PM EST NORM ([facility]) Name Value Range Interpretation Code Description Data Jania rce(s) Supporting Document(s) D-dimer quant < 270 <500 D-dimer Quant NORM ( [facility]) ID Date Data Source [id number] 09/13/2020 05:35:00 PM EST NORM ([facility]) Name Value Range Interpretation Code Description Data Jania rce(s) Supporting Document(s) INR Inr NORM ([facility]) prothrombin time 13.1 seconds 12.5-14.3 Prothrombin Time NORM ([facility]) partial thromboplastin time 31.0 seconds 24.2-38.5 Partial Thromboplastin Time NORM ([facility]) ID Date Data Source [id number] 09/13/2020 05:35:00 PM EST NORM ([facility]) Name Value Range Interpretation Code Description Data Jania rce(s) Supporting Document(s) lipase 179 U/L 73-393 Lipase NORM ([facility]) ID Date Data Source [id number] 09/13/2020 05:35:00 PM EST NORM ([facility]) Name Value Range Interpretation Code Description Data Jania rce(s) Supporting Document(s) blood urea nitrogen 10 mg/dL 7-18 Blood Urea Nitro gen [place] ([facility]) glucose, fasting 93 mg/dL 70-100 Glucose, Fasting AT [facility] ([facility]) creatinine for GFR 1.03 mg/dL 0.70-1.30 Creatinine for GF R NORM ([facility]) sodium level 140 mEq/L 136-145 Sodium Level NORM ([facility]) potassium serum 3.3 mEq/L 3.5-5.1 Below low normal Potassium Seru m [place] ([facility]) glomerular filtration rate > 60.0 >60 Glomerula r Filtration Rate NORM ([facility]) anion gap 10 mEq/L 8-16 Anion Gap NORM ([facility]) chloride level 101 mEq/L 98-107 Chloride Level NORM ([facility]) carbon dioxide level 29 mEq/L 21-32 Carbon Dioxide Level [place] ([facility]) calcium level 9.4 mg/dL 8.5-10.1 Calcium Level NORM ( [facility]) ID Date Data Source [id number] 09/13/2020 05:35:00 PM EST NORM ([facility]) Name Value Range Interpretation Code Description Data Jania rce(s) Supporting Document(s) ALT/SGPT 29 U/L 12-78 ALT/SGPT NORM ([facility]) alkaline phosphatase 72 U/L 45-117 Alkaline Phosph atase NORM ([facility]) AST/SGOT 16 U/L 7-37 AST/SGOT NROM ([facility]) bilirubin,direct < 0.1 0.0-0.2 Bilirubin,direct AT [facility] ([facility]) bilirubin,total 0.4 mg/dL 0.2-1.0 Bilirubin,total ATHE ([facility]) total protein 8.1 gm/dL 6.4-8.2 Total Protein NORM ( [facility]) albumin/globulin ratio Albumin/globu veda Ratio NORM ([facility]) albumin 4.7 gm/dL 3.2-5.2 Albumin NORM ([facility]) ID Date Data Source [id number] 09/13/2020 05:35:00 PM EST NORM ([facility]) Name Value Range Interpretation Code Description Data Jania rce(s) Supporting Document(s) CPK creatine phosphokinase 136 U/L 39-308 CPK Creat ine Phosphokinase NORM ([facility]) mb/CK relative index < or =4 mb/CK Relative Index NORM ([facility]) CK-mb value mass 1.3 NG/mL <3.6 CK-mb Value Mass AT [facility] ([facility]) troponin I < 0.02 < 0.10 Troponin I NORM ([facility]) ID Date Data Source [id number] 09/13/2020 05:35:00 PM EST NORM ([facility]) Name Value Range Interpretation Code Description Data Jania rce(s) Supporting Document(s) D-dimer quant < 270 <500 D-dimer Quant [place] ( [facility]) ID Date Data Source [id number] 09/13/2020 05:35:00 PM EST NORM ([facility]) Name Value Range Interpretation Code Description Data Jania rce(s) Supporting Document(s) prothrombin time 13.1 seconds 12.5-14.3 Prothrombin Time [place] ([facility]) INR Inr [place] ([facility]) partial thromboplastin time 31.0 seconds 24.2-38.5 Partial Thromboplastin Time [place] ([facility]) ID Date Data Source [id number] 09/13/2020 05:35:00 PM EST NORM ([facility]) Name Value Range Interpretation Code Description Data Jania rce(s) Supporting Document(s) lipase 179 U/L 73-393 Lipase [place] ([facility]) ID Date Data Source [id number] 09/13/2020 05:35:00 PM EST [place] ([facility]) Name Value Range Interpretation Code Description Data Jania rce(s) Supporting Document(s) glucose, fasting 93 mg/dL 70-100 Glucose, Fasting AT [facility] ([facility]) creatinine for GFR 1.03 mg/dL 0.70-1.30 Creatinine for GF R [place] ([facility]) blood urea nitrogen 10 mg/dL 7-18 Blood Urea Nitro gen [place] ([facility]) glomerular filtration rate > 60.0 >60 Glomerula r Filtration Rate [place] ([facility]) potassium serum 3.3 mEq/L 3.5-5.1 Below low normal Potassium Seru m [place] ([facility]) sodium level 140 mEq/L 136-145 Sodium Level [place] ([facility]) chloride level 101 mEq/L 98-107 Chloride Level [place] ([facility]) calcium level 9.4 mg/dL 8.5-10.1 Calcium Level NORM ( [facility]) carbon dioxide level 29 mEq/L 21-32 Carbon Dioxide Level NORM ([facility]) anion gap 10 mEq/L 8-16 Anion Gap NORM ([facility]) ID Date Data Source [id number] 09/13/2020 05:35:00 PM EST NORM ([facility]) Name Value Range Interpretation Code Description Data Jania rce(s) Supporting Document(s) AST/SGOT 16 U/L 7-37 AST/SGOT NORM ([facility]) ALT/SGPT 29 U/L 12-78 ALT/SGPT NORM ([facility]) bilirubin,total 0.4 mg/dL 0.2-1.0 Bilirubin,total ATHE ([facility]) bilirubin,direct < 0.1 0.0-0.2 Bilirubin,direct AT [facility]) alkaline phosphatase 72 U/L 45-117 Alkaline Phosph atase NORM ([facility]) albumin 4.7 gm/dL 3.2-5.2 Albumin NORM ([facility]) albumin/globulin ratio Albumin/globu veda Ratio NORM ([facility]) total protein 8.1 gm/dL 6.4-8.2 Total Protein NORM ( [facility]) ID Date Data Source [id number] 09/13/2020 05:35:00 PM EST NORM ([facility]) Name Value Range Interpretation Code Description Data Jania rce(s) Supporting Document(s) CK-mb value mass 1.3 NG/mL <3.6 CK-mb Value Mass AT [facility] ([facility]) mb/CK relative index < or =4 mb/CK Relative Index NORM ([facility]) CPK creatine phosphokinase 136 U/L 39-308 CPK Creat ine Phosphokinase NORM ([facility]) troponin I < 0.02 < 0.10 Troponin I NORM ([facility]) ID Date Data Source [id number] 09/13/2020 05:35:00 PM EST NORM ([facility]) Name Value Range Interpretation Code Description Data Jania rce(s) Supporting Document(s) D-dimer quant < 270 <500 D-dimer Quant NORM ( [facility]) ID Date Data Source [id number] 09/13/2020 05:35:00 PM EST NORM ([facility]) Name Value Range Interpretation Code Description Data Jania rce(s) Supporting Document(s) INR Inr NORM ([facility]) prothrombin time 13.1 seconds 12.5-14.3 Prothrombin Time [place] ([facility]) partial thromboplastin time 31.0 seconds 24.2-38.5 Partial Thromboplastin Time [place] ([facility]) ID Date Data Source [id number] 09/13/2020 05:35:00 PM EST NORM ([facility]) Name Value Range Interpretation Code Description Data Jania rce(s) Supporting Document(s) lipase 179 U/L 73-393 Lipase NORM ([facility]) ID Date Data Source [id number] 09/13/2020 05:35:00 PM EST NORM ([facility]) Name Value Range Interpretation Code Description Data Jania rce(s) Supporting Document(s) glucose, fasting 93 mg/dL 70-100 Glucose, Fasting AT [facility] ([facility]) creatinine for GFR 1.03 mg/dL 0.70-1.30 Creatinine for GF R [place] ([facility]) blood urea nitrogen 10 mg/dL 7-18 Blood Urea Nitro gen NORM ([facility]) sodium level 140 mEq/L 136-145 Sodium Level NORM ([facility]) glomerular filtration rate > 60.0 >60 Glomerula r Filtration Rate [place] ([facility]) potassium serum 3.3 mEq/L 3.5-5.1 Below low normal Potassium Seru m NORM ([facility]) calcium level 9.4 mg/dL 8.5-10.1 Calcium Level NORM ( [facility]) carbon dioxide level 29 mEq/L 21-32 Carbon Dioxide Level NORM ([facility]) anion gap 10 mEq/L 8-16 Anion Gap NORM ([facility]) chloride level 101 mEq/L 98-107 Chloride Level NROM ([facility]) ID Date Data Source [id number] 09/13/2020 05:35:00 PM EST NORM ([facility]) Name Value Range Interpretation Code Description Data Jania rce(s) Supporting Document(s) AST/SGOT 16 U/L 7-37 AST/SGOT NORM ([facility]) ALT/SGPT 29 U/L 12-78 ALT/SGPT NORM ([facility]) total protein 8.1 gm/dL 6.4-8.2 Total Protein NORM ( [facility]) bilirubin,direct < 0.1 0.0-0.2 Bilirubin,direct AT [place] ([facility]) bilirubin,total 0.4 mg/dL 0.2-1.0 Bilirubin,total ATHE NA ([facility]) alkaline phosphatase 72 U/L 45-117 Alkaline Phosph atase NORM ([facility]) albumin/globulin ratio Albumin/globu veda Ratio NORM ([facility]) albumin 4.7 gm/dL 3.2-5.2 Albumin NORM ([facility]) ID Date Data Source [id number] 09/13/2020 05:35:00 PM EST NORM ([facility]) Name Value Range Interpretation Code Description Data Jania rce(s) Supporting Document(s) CPK creatine phosphokinase 136 U/L 39-308 CPK Creat ine Phosphokinase NORM ([facility]) mb/CK relative index < or =4 mb/CK Relative Index NORM ([facility]) troponin I < 0.02 < 0.10 Troponin I NORM ([facility]) CK-mb value mass 1.3 NG/mL <3.6 CK-mb Value Mass AT [facility]) ID Date Data Source [id number] 09/13/2020 05:35:00 PM EST NORM ([facility]) Name Value Range Interpretation Code Description Data Jania rce(s) Supporting Document(s) D-dimer quant < 270 <500 D-dimer Quant [place] ( [facility]) ID Date Data Source [id number] 09/13/2020 05:35:00 PM EST NORM ([facility]) Name Value Range Interpretation Code Description Data Jania rce(s) Supporting Document(s) prothrombin time 13.1 seconds 12.5-14.3 Prothrombin Time [place] ([facility]) INR Inr [place] ([facility]) partial thromboplastin time 31.0 seconds 24.2-38.5 Partial Thromboplastin Time [place] ([facility]) ID Date Data Source [id number] 09/13/2020 05:35:00 PM EST NORM ([facility]) Name Value Range Interpretation Code Description Data Jania rce(s) Supporting Document(s) lipase 179 U/L 73-393 Lipase NORM ([facility]) ID Date Data Source [id number] 09/13/2020 05:35:00 PM EST NORM ([facility]) Name Value Range Interpretation Code Description Data Jania rce(s) Supporting Document(s) blood urea nitrogen 10 mg/dL 7-18 Blood Urea Nitro gen [place] ([facility]) glucose, fasting 93 mg/dL 70-100 Glucose, Fasting AT [facility] ([facility]) creatinine for GFR 1.03 mg/dL 0.70-1.30 Creatinine for GF R [place] ([facility]) sodium level 140 mEq/L 136-145 Sodium Level NORM ([facility]) potassium serum 3.3 mEq/L 3.5-5.1 Below low normal Potassium Seru m NORM ([facility]) glomerular filtration rate > 60.0 >60 Glomerula r Filtration Rate NROM ([facility]) chloride level 101 mEq/L 98-107 Chloride Level NORM ([facility]) carbon dioxide level 29 mEq/L 21-32 Carbon Dioxide Level NORM ([facility]) calcium level 9.4 mg/dL 8.5-10.1 Calcium Level NORM ( [facility]) anion gap 10 mEq/L 8-16 Anion Gap NORM ([facility]) ID Date Data Source [id number] 09/13/2020 05:35:00 PM EST NORM ([facility]) Name Value Range Interpretation Code Description Data Jania rce(s) Supporting Document(s) ALT/SGPT 29 U/L 12-78 ALT/SGPT NORM ([facility]) AST/SGOT 16 U/L 7-37 AST/SGOT NORM ([facility]) bilirubin,total 0.4 mg/dL 0.2-1.0 Bilirubin,total ATHE ([facility]) total protein 8.1 gm/dL 6.4-8.2 Total Protein NORM ( [facility]) bilirubin,direct < 0.1 0.0-0.2 Bilirubin,direct AT [facility]) alkaline phosphatase 72 U/L 45-117 Alkaline Phosph atase NORM ([facility]) albumin/globulin ratio Albumin/globu veda Ratio NORM ([facility]) albumin 4.7 gm/dL 3.2-5.2 Albumin NORM ([facility]) ID Date Data Source [id number] 09/13/2020 05:35:00 PM EST NORM ([facility]) Name Value Range Interpretation Code Description Data Jania rce(s) Supporting Document(s) CPK creatine phosphokinase 136 U/L 39-308 CPK Creat ine Phosphokinase NORM ([facility]) mb/CK relative index < or =4 mb/CK Relative Index NORM ([facility]) CK-mb value mass 1.3 NG/mL <3.6 CK-mb Value Mass AT [facility] ([facility]) troponin I < 0.02 < 0.10 Troponin I NORM ([facility]) ID Date Data Source [id number] 09/13/2020 05:35:00 PM EST NORM ([facility]) Name Value Range Interpretation Code Description Data Jania rce(s) Supporting Document(s) D-dimer quant < 270 <500 D-dimer Quant NORM ( [facility]) ID Date Data Source [id number] 09/13/2020 05:35:00 PM EST NORM ([facility]) Name Value Range Interpretation Code Description Data Jania rce(s) Supporting Document(s) prothrombin time 13.1 seconds 12.5-14.3 Prothrombin Time NORM ([facility]) INR Inr [place] ([facility]) partial thromboplastin time 31.0 seconds 24.2-38.5 Partial Thromboplastin Time NORM ([facility]) ID Date Data Source [id number] 09/13/2020 04:55:00 PM EST NORM ([facility]) Name Value Range Interpretation Code Description Data Jania rce(s) Supporting Document(s) istat troponin 0.00 NG/mL 0.00-0.08 Istat Troponin NORM ([facility]) ID Date Data Source [id number] 09/13/2020 04:55:00 PM EST NORM ([facility]) Name Value Range Interpretation Code Description Data Jania rce(s) Supporting Document(s) istat troponin 0.00 NG/mL 0.00-0.08 Istat Troponin NORM ([facility]) ID Date Data Source [id number] 09/13/2020 04:55:00 PM EST NORM ([facility]) Name Value Range Interpretation Code Description Data Jania rce(s) Supporting Document(s) istat troponin 0.00 NG/mL 0.00-0.08 Istat Troponin NORM ([facility]) ID Date Data Source [id number] 09/13/2020 04:55:00 PM EST NORM ([facility]) Name Value Range Interpretation Code Description Data Jania rce(s) Supporting Document(s) istat troponin 0.00 NG/mL 0.00-0.08 Istat Troponin NORM ([facility]) ID Date Data Source [id number] 09/13/2020 04:55:00 PM EST NORM ([facility]) Name Value Range Interpretation Code Description Data Jania rce(s) Supporting Document(s) istat troponin 0.00 NG/mL 0.00-0.08 Istat Troponin NORM ([facility]) ID Date Data Source [id number] 09/13/2020 04:55:00 PM EST NORM ([facility]) Name Value Range Interpretation Code Description Data Jania rce(s) Supporting Document(s) istat troponin 0.00 NG/mL 0.00-0.08 Istat Troponin NORM ([facility]) ID Date Data Source [id number] 09/13/2020 04:55:00 PM EST NORM ([facility]) Name Value Range Interpretation Code Description Data Jania rce(s) Supporting Document(s) istat troponin 0.00 NG/mL 0.00-0.08 Istat Troponin NORM ([facility]) ID Date Data Source [id number] 09/13/2020 04:55:00 PM EST NORM ([facility]) Name Value Range Interpretation Code Description Data Jania rce(s) Supporting Document(s) istat troponin 0.00 NG/mL 0.00-0.08 Istat Troponin NORM ([facility]) ID Date Data Source [id number] 09/13/2020 04:55:00 PM EST NORM ([facility]) Name Value Range Interpretation Code Description Data Jania rce(s) Supporting Document(s) istat troponin 0.00 NG/mL 0.00-0.08 Istat Troponin NORM ([facility]) ID Date Data Source [id number] 09/13/2020 04:55:00 PM EST NORM ([facility]) Name Value Range Interpretation Code Description Data Jania rce(s) Supporting Document(s) istat troponin 0.00 NG/mL 0.00-0.08 Istat Troponin NORM ([facility]) ID Date Data Source [id number] 09/13/2020 04:55:00 PM EST NORM ([facility]) Name Value Range Interpretation Code Description Data Jania rce(s) Supporting Document(s) istat troponin 0.00 NG/mL 0.00-0.08 Istat Troponin NORM ([facility]) ID Date Data Source [id number] 09/13/2020 04:54:00 PM EST NORM ([facility]) Name Value Range Interpretation Code Description Data Jania rce(s) Supporting Document(s) istat glucose 93 mg/dL 70-105 Istat Glucose NORM ( [facility]) istat HCT 49.0 % 38.0-51.0 Istat HCT NORM ([facility]) istat sodium 139 mEq/L 136-145 Istat Sodium NORM ([facility]) istat potassium 3.1 mEq/L 3.5-5.1 Below low normal Istat Potassiu m NORM ([facility]) istat chloride 101 mEq/L 98-109 Istat Chloride NORM ([facility]) istat Ca++ 4.5 mg/dL 4.5-5.3 Istat Ca++ NORM ([facility]) istat CO2 28.0 mm/L 23.0-27.0 Above high normal Istat CO2 NORM ([facility]) istat BUN 10 mg/dL 8-26 Istat BUN NORM ([facility]) istat creatinine 0.9 mg/dL 0.6-1.3 Istat Creatinine AT [facility]) ID Date Data Source [id number] 09/13/2020 04:54:00 PM EST [place] ([facility]) Name Value Range Interpretation Code Description Data Jania rce(s) Supporting Document(s) istat HCT 49.0 % 38.0-51.0 Istat HCT NORM ([facility]) istat glucose 93 mg/dL 70-105 Istat Glucose [place] ( [facility]) istat sodium 139 mEq/L 136-145 Istat Sodium NORM ([facility]) istat potassium 3.1 mEq/L 3.5-5.1 Below low normal Istat Potassiu m NORM ([facility]) istat Ca++ 4.5 mg/dL 4.5-5.3 Istat Ca++ NORM ([facility]) istat chloride 101 mEq/L 98-109 Istat Chloride NORM ([facility]) istat CO2 28.0 mm/L 23.0-27.0 Above high normal Istat CO2 [place] ([facility]) istat BUN 10 mg/dL 8-26 Istat BUN [place] ([facility]) istat creatinine 0.9 mg/dL 0.6-1.3 Istat Creatinine AT [facility]) ID Date Data Source [id number] 09/13/2020 04:54:00 PM EST NORM ([facility]) Name Value Range Interpretation Code Description Data Jania rce(s) Supporting Document(s) istat HCT 49.0 % 38.0-51.0 Istat HCT NORM ([facility]) istat glucose 93 mg/dL 70-105 Istat Glucose NORM ( [facility]) istat sodium 139 mEq/L 136-145 Istat Sodium NORM ([facility]) istat potassium 3.1 mEq/L 3.5-5.1 Below low normal Istat Potassiu m [place] ([facility]) istat Ca++ 4.5 mg/dL 4.5-5.3 Istat Ca++ [place] ([facility]) istat CO2 28.0 mm/L 23.0-27.0 Above high normal Istat CO2 [place] ([facility]) istat chloride 101 mEq/L 98-109 Istat Chloride [place] ([facility]) istat creatinine 0.9 mg/dL 0.6-1.3 Istat Creatinine AT [facility]) istat BUN 10 mg/dL 8-26 Istat BUN [place] ([facility]) ID Date Data Source [id number] 09/13/2020 04:54:00 PM EST NORM ([facility]) Name Value Range Interpretation Code Description Data Jania rce(s) Supporting Document(s) istat HCT 49.0 % 38.0-51.0 Istat HCT NORM ([facility]) istat glucose 93 mg/dL 70-105 Istat Glucose NORM ( [facility]) istat potassium 3.1 mEq/L 3.5-5.1 Below low normal Istat Potassiu m NORM ([facility]) istat sodium 139 mEq/L 136-145 Istat Sodium NORM ([facility]) istat Ca++ 4.5 mg/dL 4.5-5.3 Istat Ca++ NORM ([facility]) istat chloride 101 mEq/L 98-109 Istat Chloride NORM ([facility]) istat CO2 28.0 mm/L 23.0-27.0 Above high normal Istat CO2 NORM ([facility]) istat BUN 10 mg/dL 8-26 Istat BUN NORM ([facility]) istat creatinine 0.9 mg/dL 0.6-1.3 Istat Creatinine AT [facility]) ID Date Data Source [id number] 09/13/2020 04:54:00 PM EST [place] ([facility]) Name Value Range Interpretation Code Description Data Jania rce(s) Supporting Document(s) istat HCT 49.0 % 38.0-51.0 Istat HCT NORM ([facility]) istat sodium 139 mEq/L 136-145 Istat Sodium NORM ([facility]) istat glucose 93 mg/dL 70-105 Istat Glucose NORM ( [facility]) istat Ca++ 4.5 mg/dL 4.5-5.3 Istat Ca++ [place] ([facility]) istat chloride 101 mEq/L 98-109 Istat Chloride NORM ([facility]) istat potassium 3.1 mEq/L 3.5-5.1 Below low normal Istat Potassiu m NORM ([facility]) istat BUN 10 mg/dL 8-26 Istat BUN NORM ([facility]) istat CO2 28.0 mm/L 23.0-27.0 Above high normal Istat CO2 NORM ([facility]) istat creatinine 0.9 mg/dL 0.6-1.3 Istat Creatinine AT [facility]) ID Date Data Source [id number] 09/13/2020 04:54:00 PM EST NORM ([facility]) Name Value Range Interpretation Code Description Data Jania rce(s) Supporting Document(s) istat HCT 49.0 % 38.0-51.0 Istat HCT NORM ([facility]) istat glucose 93 mg/dL 70-105 Istat Glucose NORM ( [facility]) istat sodium 139 mEq/L 136-145 Istat Sodium NORM ([facility]) istat potassium 3.1 mEq/L 3.5-5.1 Below low normal Istat Potassiu m [place] ([facility]) istat chloride 101 mEq/L 98-109 Istat Chloride NORM ([facility]) istat CO2 28.0 mm/L 23.0-27.0 Above high normal Istat CO2 [place] ([facility]) istat Ca++ 4.5 mg/dL 4.5-5.3 Istat Ca++ [place] ([facility]) istat BUN 10 mg/dL 8-26 Istat BUN [place] ([facility]) istat creatinine 0.9 mg/dL 0.6-1.3 Istat Creatinine AT [facility] ([facility]) ID Date Data Source [id number] 09/13/2020 04:54:00 PM EST NORM ([facility]) Name Value Range Interpretation Code Description Data Jania rce(s) Supporting Document(s) istat HCT 49.0 % 38.0-51.0 Istat HCT NORM ([facility]) istat glucose 93 mg/dL 70-105 Istat Glucose NORM ( [facility]) istat potassium 3.1 mEq/L 3.5-5.1 Below low normal Istat Potassiu m NORM ([facility]) istat sodium 139 mEq/L 136-145 Istat Sodium NORM ([facility]) istat chloride 101 mEq/L 98-109 Istat Chloride NORM ([facility]) istat Ca++ 4.5 mg/dL 4.5-5.3 Istat Ca++ NORM ([facility]) istat CO2 28.0 mm/L 23.0-27.0 Above high normal Istat CO2 NORM ([facility]) istat BUN 10 mg/dL 8-26 Istat BUN NORM ([facility]) istat creatinine 0.9 mg/dL 0.6-1.3 Istat Creatinine AT [facility]) ID Date Data Source [id number] 09/13/2020 04:54:00 PM EST [place] ([facility]) Name Value Range Interpretation Code Description Data Jania rce(s) Supporting Document(s) istat HCT 49.0 % 38.0-51.0 Istat HCT NORM ([facility]) istat glucose 93 mg/dL 70-105 Istat Glucose NORM ( [facility]) istat sodium 139 mEq/L 136-145 Istat Sodium NORM ([facility]) istat chloride 101 mEq/L 98-109 Istat Chloride NORM ([facility]) istat potassium 3.1 mEq/L 3.5-5.1 Below low normal Istat Vidaassiu m NORM ([facility]) istat Ca++ 4.5 mg/dL 4.5-5.3 Istat Ca++ NORM ([facility]) istat CO2 28.0 mm/L 23.0-27.0 Above high normal Istat CO2 NORM ([facility]) istat BUN 10 mg/dL 8-26 Istat BUN NORM ([facility]) istat creatinine 0.9 mg/dL 0.6-1.3 Istat Creatinine AT [facility]) ID Date Data Source [id number] 09/13/2020 04:54:00 PM EST NORM ([facility]) Name Value Range Interpretation Code Description Data Jania rce(s) Supporting Document(s) istat HCT 49.0 % 38.0-51.0 Istat HCT NORM ([facility]) istat glucose 93 mg/dL 70-105 Istat Glucose NORM ( [facility]) istat Ca++ 4.5 mg/dL 4.5-5.3 Istat Ca++ NORM ([facility]) istat potassium 3.1 mEq/L 3.5-5.1 Below low normal Istat Potassiu m NORM ([facility]) istat sodium 139 mEq/L 136-145 Istat Sodium NORM ([facility]) istat CO2 28.0 mm/L 23.0-27.0 Above high normal Istat CO2 NORM ([facility]) istat chloride 101 mEq/L 98-109 Istat Chloride NORM ([facility]) istat creatinine 0.9 mg/dL 0.6-1.3 Istat Creatinine AT [facility]) istat BUN 10 mg/dL 8-26 Istat BUN [place] ([facility]) ID Date Data Source [id number] 09/13/2020 04:54:00 PM EST NORM ([facility]) Name Value Range Interpretation Code Description Data Jania rce(s) Supporting Document(s) istat HCT 49.0 % 38.0-51.0 Istat HCT NORM ([facility]) istat glucose 93 mg/dL 70-105 Istat Glucose NORM ( [facility]) istat potassium 3.1 mEq/L 3.5-5.1 Below low normal Istat Potassiu m NORM ([facility]) istat Ca++ 4.5 mg/dL 4.5-5.3 Istat Ca++ NORM ([facility]) istat sodium 139 mEq/L 136-145 Istat Sodium NORM ([facility]) istat CO2 28.0 mm/L 23.0-27.0 Above high normal Istat CO2 NORM ([facility]) istat BUN 10 mg/dL 8-26 Istat BUN NORM ([facility]) istat chloride 101 mEq/L 98-109 Istat Chloride NORM ([facility]) istat creatinine 0.9 mg/dL 0.6-1.3 Istat Creatinine AT [facility]) ID Date Data Source [id number] 09/13/2020 04:54:00 PM EST [place] ([facility]) Name Value Range Interpretation Code Description Data Jania rce(s) Supporting Document(s) istat HCT 49.0 % 38.0-51.0 Istat HCT NORM ([facility]) istat glucose 93 mg/dL 70-105 Istat Glucose NORM ( [facility]) istat Ca++ 4.5 mg/dL 4.5-5.3 Istat Ca++ [place] ([facility]) istat potassium 3.1 mEq/L 3.5-5.1 Below low normal Istat Shikha m [place] ([facility]) istat sodium 139 mEq/L 136-145 Istat Sodium NORM ([facility]) istat BUN 10 mg/dL 8-26 Istat BUN NORM ([facility]) istat CO2 28.0 mm/L 23.0-27.0 Above high normal Istat CO2 NORM ([facility]) istat chloride 101 mEq/L 98-109 Istat Chloride NORM ([facility]) istat creatinine 0.9 mg/dL 0.6-1.3 Istat Creatinine AT [facility]) ID Date Data Source [id number] 09/13/2020 04:51:00 PM EST NORM ([facility]) Name Value Range Interpretation Code Description Data Jania rce(s) Supporting Document(s) white blood count 7.6 10 4.0-10.0 White Blood Count NORM ([facility]) red blood count 5.44 10 4.30-6.10 Red Blood Count ATHE NA ([facility]) hematocrit 47.7 % 42.0-52.0 Hematocrit NORM ([facility]) hemoglobin 15.8 g/dL 13.5-17.5 Hemoglobin NORM ([facility]) mean corpuscular volume 87.7 fL 80.0-96.0 Mean Corpusc ular Volume NORM ([facility]) mean corpuscular hemoglobin 29.0 pg 27.0-33.0 Mean Cor puscular Hemoglobin NORM ([facility]) mean corpuscular HGB conc 33.1 g/dL 32.0-36.5 Mean Corpu scular HGB Conc NORM ([facility]) platelet count, automated 284 10 150-450 Platelet C ount, Automated NORM ([facility]) red cell distribution width 11.9 % 11.5-14.5 Red Cell Distribution Width NORM ([facility]) nucleated red blood cell % 0.0 % 0-0 Nucleated Red Blood Cell % NORM ([facility]) ID Date Data Source [id number] 09/13/2020 04:51:00 PM EST NORM ([facility]) Name Value Range Interpretation Code Description Data Jania rce(s) Supporting Document(s) white blood count 7.6 10 4.0-10.0 White Blood Count NORM ([facility]) red blood count 5.44 10 4.30-6.10 Red Blood Count ATHE NA ([facility]) hematocrit 47.7 % 42.0-52.0 Hematocrit NORM ([facility]) hemoglobin 15.8 g/dL 13.5-17.5 Hemoglobin NORM ([facility]) mean corpuscular volume 87.7 fL 80.0-96.0 Mean Corpusc ular Volume NORM ([facility]) mean corpuscular hemoglobin 29.0 pg 27.0-33.0 Mean Cor puscular Hemoglobin NORM ([facility]) mean corpuscular HGB conc 33.1 g/dL 32.0-36.5 Mean Corpu scular HGB Conc NORM ([facility]) red cell distribution width 11.9 % 11.5-14.5 Red Cell Distribution Width NORM ([facility]) platelet count, automated 284 10 150-450 Platelet C ount, Automated NORM ([facility]) nucleated red blood cell % 0.0 % 0-0 Nucleated Red Blood Cell % NORM ([facility]) ID Date Data Source [id number] 09/13/2020 04:51:00 PM EST NORM ([facility]) Name Value Range Interpretation Code Description Data Jania rce(s) Supporting Document(s) white blood count 7.6 10 4.0-10.0 White Blood Count NORM ([facility]) red blood count 5.44 10 4.30-6.10 Red Blood Count ATHE NA ([facility]) hematocrit 47.7 % 42.0-52.0 Hematocrit NORM ([facility]) hemoglobin 15.8 g/dL 13.5-17.5 Hemoglobin NORM ([facility]) mean corpuscular volume 87.7 fL 80.0-96.0 Mean Corpusc ular Volume NORM ([facility]) mean corpuscular hemoglobin 29.0 pg 27.0-33.0 Mean Cor puscular Hemoglobin NORM ([facility]) red cell distribution width 11.9 % 11.5-14.5 Red Cell Distribution Width NORM ([facility]) mean corpuscular HGB conc 33.1 g/dL 32.0-36.5 Mean Corpu scular HGB Conc NORM ([facility]) nucleated red blood cell % 0.0 % 0-0 Nucleated Red Blood Cell % NORM ([facility]) platelet count, automated 284 10 150-450 Platelet C ount, Automated NORM ([facility]) ID Date Data Source [id number] 09/13/2020 04:51:00 PM EST NORM ([facility]) Name Value Range Interpretation Code Description Data Jania rce(s) Supporting Document(s) white blood count 7.6 10 4.0-10.0 White Blood Count NORM ([facility]) hematocrit 47.7 % 42.0-52.0 Hematocrit NORM ([facility]) hemoglobin 15.8 g/dL 13.5-17.5 Hemoglobin NORM ([facility]) red blood count 5.44 10 4.30-6.10 Red Blood Count ATHE NA ([facility]) mean corpuscular volume 87.7 fL 80.0-96.0 Mean Corpusc ular Volume NORM ([facility]) mean corpuscular hemoglobin 29.0 pg 27.0-33.0 Mean Cor puscular Hemoglobin NORM ([facility]) platelet count, automated 284 10 150-450 Platelet C ount, Automated NORM ([facility]) mean corpuscular HGB conc 33.1 g/dL 32.0-36.5 Mean Corpu scular HGB Conc NORM ([facility]) red cell distribution width 11.9 % 11.5-14.5 Red Cell Distribution Width NORM ([facility]) nucleated red blood cell % 0.0 % 0-0 Nucleated Red Blood Cell % NORM ([facility]) ID Date Data Source [id number] 09/13/2020 04:51:00 PM EST NORM ([facility]) Name Value Range Interpretation Code Description Data Jania rce(s) Supporting Document(s) white blood count 7.6 10 4.0-10.0 White Blood Count NORM ([facility]) red blood count 5.44 10 4.30-6.10 Red Blood Count ATHE NA ([facility]) hemoglobin 15.8 g/dL 13.5-17.5 Hemoglobin NORM ([facility]) mean corpuscular hemoglobin 29.0 pg 27.0-33.0 Mean Cor puscular Hemoglobin NORM ([facility]) mean corpuscular volume 87.7 fL 80.0-96.0 Mean Corpusc ular Volume NORM ([facility]) hematocrit 47.7 % 42.0-52.0 Hematocrit NORM ([facility]) mean corpuscular HGB conc 33.1 g/dL 32.0-36.5 Mean Corpu scular HGB Conc NORM ([facility]) red cell distribution width 11.9 % 11.5-14.5 Red Cell Distribution Width NORM ([facility]) platelet count, automated 284 10 150-450 Platelet C ount, Automated NORM ([facility]) nucleated red blood cell % 0.0 % 0-0 Nucleated Red Blood Cell % [place] ([facility]) ID Date Data Source [id number] 09/13/2020 04:51:00 PM EST NORM ([facility]) Name Value Range Interpretation Code Description Data Jania rce(s) Supporting Document(s) white blood count 7.6 10 4.0-10.0 White Blood Count NORM ([facility]) red blood count 5.44 10 4.30-6.10 Red Blood Count ATHE NA ([facility]) hematocrit 47.7 % 42.0-52.0 Hematocrit NORM ([facility]) mean corpuscular volume 87.7 fL 80.0-96.0 Mean Corpusc ular Volume NORM ([facility]) hemoglobin 15.8 g/dL 13.5-17.5 Hemoglobin NORM ([facility]) red cell distribution width 11.9 % 11.5-14.5 Red Cell Distribution Width NORM ([facility]) mean corpuscular hemoglobin 29.0 pg 27.0-33.0 Mean Cor puscular Hemoglobin NORM ([facility]) mean corpuscular HGB conc 33.1 g/dL 32.0-36.5 Mean Corpu scular HGB Conc NORM ([facility]) nucleated red blood cell % 0.0 % 0-0 Nucleated Red Blood Cell % NORM ([facility]) platelet count, automated 284 10 150-450 Platelet C ount, Automated NORM ([facility]) ID Date Data Source [id number] 09/13/2020 04:51:00 PM EST NORM ([facility]) Name Value Range Interpretation Code Description Data Jania rce(s) Supporting Document(s) white blood count 7.6 10 4.0-10.0 White Blood Count NORM ([facility]) hemoglobin 15.8 g/dL 13.5-17.5 Hemoglobin NORM ([facility]) red blood count 5.44 10 4.30-6.10 Red Blood Count ATHE NA ([facility]) mean corpuscular volume 87.7 fL 80.0-96.0 Mean Corpusc ular Volume NORM ([facility]) mean corpuscular hemoglobin 29.0 pg 27.0-33.0 Mean Cor puscular Hemoglobin NORM ([facility]) hematocrit 47.7 % 42.0-52.0 Hematocrit NORM ([facility]) red cell distribution width 11.9 % 11.5-14.5 Red Cell Distribution Width NORM ([facility]) mean corpuscular HGB conc 33.1 g/dL 32.0-36.5 Mean Corpu scular HGB Conc NORM ([facility]) nucleated red blood cell % 0.0 % 0-0 Nucleated Red Blood Cell % NORM ([facility]) platelet count, automated 284 10 150-450 Platelet C ount, Automated NORM ([facility]) ID Date Data Source [id number] 09/13/2020 04:51:00 PM EST NORM ([facility]) Name Value Range Interpretation Code Description Data Jania rce(s) Supporting Document(s) white blood count 7.6 10 4.0-10.0 White Blood Count NORM ([facility]) red blood count 5.44 10 4.30-6.10 Red Blood Count ATHE NA ([facility]) mean corpuscular volume 87.7 fL 80.0-96.0 Mean Corpusc ular Volume NORM ([facility]) hematocrit 47.7 % 42.0-52.0 Hematocrit NORM ([facility]) hemoglobin 15.8 g/dL 13.5-17.5 Hemoglobin NORM ([facility]) mean corpuscular hemoglobin 29.0 pg 27.0-33.0 Mean Cor puscular Hemoglobin NORM ([facility]) red cell distribution width 11.9 % 11.5-14.5 Red Cell Distribution Width NORM ([facility]) mean corpuscular HGB conc 33.1 g/dL 32.0-36.5 Mean Corpu scular HGB Conc NORM ([facility]) platelet count, automated 284 10 150-450 Platelet C ount, Automated NORM ([facility]) nucleated red blood cell % 0.0 % 0-0 Nucleated Red Blood Cell % NORM ([facility]) ID Date Data Source [id number] 09/13/2020 04:51:00 PM EST NORM ([facility]) Name Value Range Interpretation Code Description Data Jania rce(s) Supporting Document(s) white blood count 7.6 10 4.0-10.0 White Blood Count NORM ([facility]) hematocrit 47.7 % 42.0-52.0 Hematocrit NORM ([facility]) red blood count 5.44 10 4.30-6.10 Red Blood Count ATHE NA ([facility]) hemoglobin 15.8 g/dL 13.5-17.5 Hemoglobin NORM ([facility]) mean corpuscular volume 87.7 fL 80.0-96.0 Mean Corpusc ular Volume NORM ([facility]) mean corpuscular hemoglobin 29.0 pg 27.0-33.0 Mean Cor puscular Hemoglobin NORM ([facility]) red cell distribution width 11.9 % 11.5-14.5 Red Cell Distribution Width NORM ([facility]) mean corpuscular HGB conc 33.1 g/dL 32.0-36.5 Mean Corpu scular HGB Conc NORM ([facility]) platelet count, automated 284 10 150-450 Platelet C ount, Automated NORM ([facility]) nucleated red blood cell % 0.0 % 0-0 Nucleated Red Blood Cell % NORM ([facility]) ID Date Data Source [id number] 09/13/2020 04:51:00 PM EST NORM ([facility]) Name Value Range Interpretation Code Description Data Jania rce(s) Supporting Document(s) white blood count 7.6 10 4.0-10.0 White Blood Count NORM ([facility]) red blood count 5.44 10 4.30-6.10 Red Blood Count ATHE NA ([facility]) hemoglobin 15.8 g/dL 13.5-17.5 Hemoglobin NORM ([facility]) mean corpuscular volume 87.7 fL 80.0-96.0 Mean Corpusc ular Volume NORM ([facility]) mean corpuscular hemoglobin 29.0 pg 27.0-33.0 Mean Cor puscular Hemoglobin NORM ([facility]) hematocrit 47.7 % 42.0-52.0 Hematocrit NORM ([facility]) mean corpuscular HGB conc 33.1 g/dL 32.0-36.5 Mean Corpu scular HGB Conc [place] ([facility]) platelet count, automated 284 10 150-450 Platelet C ount, Automated NORM ([facility]) red cell distribution width 11.9 % 11.5-14.5 Red Cell Distribution Width NORM ([facility]) nucleated red blood cell % 0.0 % 0-0 Nucleated Red Blood Cell % NORM ([facility]) ID Date Data Source [id number] 09/13/2020 04:51:00 PM EST NORM ([facility]) Name Value Range Interpretation Code Description Data Jania rce(s) Supporting Document(s) red blood count 5.44 10 4.30-6.10 Red Blood Count ATHE NA ([facility]) white blood count 7.6 10 4.0-10.0 White Blood Count NORM ([facility]) mean corpuscular volume 87.7 fL 80.0-96.0 Mean Corpusc ular Volume NORM ([facility]) hematocrit 47.7 % 42.0-52.0 Hematocrit NORM ([facility]) hemoglobin 15.8 g/dL 13.5-17.5 Hemoglobin NORM ([facility]) mean corpuscular HGB conc 33.1 g/dL 32.0-36.5 Mean Corpu scular HGB Conc NORM ([facility]) mean corpuscular hemoglobin 29.0 pg 27.0-33.0 Mean Cor puscular Hemoglobin NORM ([facility]) red cell distribution width 11.9 % 11.5-14.5 Red Cell Distribution Width NORM ([facility]) nucleated red blood cell % 0.0 % 0-0 Nucleated Red Blood Cell % NORM ([facility]) platelet count, automated 284 10 150-450 Platelet C ount, Automated NORM ([facility]) ID Date Data Source [id number] 09/06/2020 08:48:00 AM EST [place] ([facility]) Name Value Range Interpretation Code Description Data Jania rce(s) Supporting Document(s) total 25(oh) vitamin D 15.0 NG/mL 30.0-100.0 Below low normal T otal 25(Oh) Vitamin D [place] ([facility]) ID Date Data Source [id number] 09/06/2020 08:48:00 AM EST [place] ([facility]) Name Value Range Interpretation Code Description Data Jania rce(s) Supporting Document(s) free T4 0.78 NG/dL 0.76-1.46 Free T4 NORM ([facility]) thyroid stimulating hormone 9.020 uIU/mL 0.358-3.740 Above high no rmal Thyroid Stimulating Hormone NORM ([facility]) ID Date Data Source [id number] 09/06/2020 08:48:00 AM EST NORM ([facility]) Name Value Range Interpretation Code Description Data Jania rce(s) Supporting Document(s) triglycerides level 145 mg/dL <150 Triglycerides Le matthew NORM ([facility]) HDL cholesterol 44 mg/dL >40 HDL Cholesterol ATHE ([facility]) non-HDL-C 220 mg/dL Non-hdl-c NORM ([facility]) cholesterol level 264 mg/dL <200 Above high normal Cholesterol Level NORM ([facility]) cholesterol risk ratio <5 Above high normal Choles terol Risk Ratio NORM ([facility]) Cholesterol in LDL [Mass/volume] in Serum or Plasma 191 mg/dL <100 Above high normal LDL Cholesterol NORM ([facility]) ID Date Data Source [id number] 09/06/2020 08:48:00 AM EST NORM ([facility]) Name Value Range Interpretation Code Description Data Jania rce(s) Supporting Document(s) glucose, fasting 82 mg/dL 70-100 Glucose, Fasting AT [facility]) creatinine for GFR 1.07 mg/dL 0.70-1.30 Creatinine for GF R NORM ([facility]) sodium level 138 mEq/L 136-145 Sodium Level NORM ([facility]) glomerular filtration rate > 60.0 >60 Glomerula r Filtration Rate NORM ([facility]) blood urea nitrogen 11 mg/dL 7-18 Blood Urea Nitro gen NORM ([facility]) chloride level 101 mEq/L 98-107 Chloride Level NORM ([facility]) anion gap 7 mEq/L 8-16 Below low normal Anion Gap NORM ( [facility]) carbon dioxide level 30 mEq/L 21-32 Carbon Dioxide Level NORM ([facility]) potassium serum 4.5 mEq/L 3.5-5.1 Potassium Serum ATHE ([facility]) ALT/SGPT 38 U/L 12-78 ALT/SGPT NORM ([facility]) AST/SGOT 20 U/L 7-37 AST/SGOT NORM ([facility]) alkaline phosphatase 79 U/L 45-117 Alkaline Phosph atase NORM ([facility]) calcium level 9.2 mg/dL 8.5-10.1 Calcium Level NORM ( [facility]) albumin 4.7 gm/dL 3.2-5.2 Albumin NORM ([facility]) bilirubin,total 0.7 mg/dL 0.2-1.0 Bilirubin,total ATHE NA ([facility]) albumin/globulin ratio Albumin/globu veda Ratio NORM ([facility]) total protein 8.0 gm/dL 6.4-8.2 Total Protein NORM ( [facility]) ID Date Data Source [id number] 09/06/2020 08:48:00 AM EST NORM ([facility]) Name Value Range Interpretation Code Description Data Jania rce(s) Supporting Document(s) white blood count 5.8 10 4.0-10.0 White Blood Count NORM ([facility]) hemoglobin 16.3 g/dL 13.5-17.5 Hemoglobin NORM ([facility]) red blood count 5.59 10 4.30-6.10 Red Blood Count ATHE NA ([facility]) mean corpuscular volume 89.1 fL 80.0-96.0 Mean Corpusc ular Volume NORM ([facility]) hematocrit 49.8 % 42.0-52.0 Hematocrit NORM ([facility]) mean corpuscular hemoglobin 29.2 pg 27.0-33.0 Mean Cor puscular Hemoglobin NORM ([facility]) mean corpuscular HGB conc 32.7 g/dL 32.0-36.5 Mean Corpu scular HGB Conc NORM ([facility]) neutrophils % 60.5 % 36.0-66.0 Neutrophils % NORM ( [facility]) red cell distribution width 11.9 % 11.5-14.5 Red Cell Distribution Width NORM ([facility]) platelet count, automated 269 10 150-450 Platelet C ount, Automated NORM ([facility]) mono % 8.8 % 0.0-5.0 Above high normal [place] % NORM ([facility] [facility] eos % 2.4 % 0.0-3.0 Eos % NORM ([facility]) lymph % 27.0 % 24.0-44.0 Lymph % NORM ([facility]) nucleated red blood cell % 0.0 % 0-0 Nucleated Red Blood Cell % NORM ([facility]) immature granulocyte % 0.3 % 0-3.0 Immature Gran ulocyte % NORM ([facility]) neutrophils # 3.5 10 1.5-8.5 Neutrophils # NORM ( [facility]) baso % 1.0 % 0.0-1.0 Baso % NORM ([facility]) lymph # 1.6 10 1.5-5.0 Lymph # NORM ([facility]) eos # 0.1 10 0.0-0.5 Eos # NORM ([facility]) mono # 0.5 10 0.0-0.8 [place] # NORM ([facility]) baso # 0.1 10 0.0-0.2 Baso # NORM ([facility]) ID Date Data Source [id number] 09/06/2020 08:48:00 AM EST [place] ([facility]) Name Value Range Interpretation Code Description Data Jania rce(s) Supporting Document(s) total 25(oh) vitamin D 15.0 NG/mL 30.0-100.0 Below low normal T otal 25(Oh) Vitamin D [place] ([facility]) ID Date Data Source [id number] 09/06/2020 08:48:00 AM EST NORM ([facility]) Name Value Range Interpretation Code Description Data Jania rce(s) Supporting Document(s) free T4 0.78 NG/dL 0.76-1.46 Free T4 [place] ([facility]) thyroid stimulating hormone 9.020 uIU/mL 0.358-3.740 Above high no rmal Thyroid Stimulating Hormone NORM ([facility]) ID Date Data Source [id number] 09/06/2020 08:48:00 AM EST NORM ([facility]) Name Value Range Interpretation Code Description Data Jania rce(s) Supporting Document(s) cholesterol level 264 mg/dL <200 Above high normal Cholesterol Level NORM ([facility]) triglycerides level 145 mg/dL <150 Triglycerides Le matthew NORM ([facility]) Cholesterol in LDL [Mass/volume] in Serum or Plasma 191 mg/dL <100 Above high normal LDL Cholesterol NORM ([facility]) non-HDL-C 220 mg/dL Non-hdl-c NORM ([facility]) HDL cholesterol 44 mg/dL >40 HDL Cholesterol ATHE ([facility]) cholesterol risk ratio <5 Above high normal Choles terol Risk Ratio NORM ([facility]) ID Date Data Source [id number] 09/06/2020 08:48:00 AM EST NORM ([facility]) Name Value Range Interpretation Code Description Data Jania rce(s) Supporting Document(s) glucose, fasting 82 mg/dL 70-100 Glucose, Fasting AT [facility] ([facility]) blood urea nitrogen 11 mg/dL 7-18 Blood Urea Nitro gen NORM ([facility]) glomerular filtration rate > 60.0 >60 Glomerula r Filtration Rate NORM ([facility]) sodium level 138 mEq/L 136-145 Sodium Level NORM ([facility]) creatinine for GFR 1.07 mg/dL 0.70-1.30 Creatinine for GF R NORM ([facility]) carbon dioxide level 30 mEq/L 21-32 Carbon Dioxide Level NORM ([facility]) chloride level 101 mEq/L 98-107 Chloride Level NORM ([facility]) potassium serum 4.5 mEq/L 3.5-5.1 Potassium Serum ATHE NA ([facility]) AST/SGOT 20 U/L 7-37 AST/SGOT NORM ([facility]) anion gap 7 mEq/L 8-16 Below low normal Anion Gap NORM ( [facility]) ALT/SGPT 38 U/L 12-78 ALT/SGPT NORM ([facility]) calcium level 9.2 mg/dL 8.5-10.1 Calcium Level NORM ( [facility]) alkaline phosphatase 79 U/L 45-117 Alkaline Phosph atase NORM ([facility]) total protein 8.0 gm/dL 6.4-8.2 Total Protein NORM ( [facility]) albumin 4.7 gm/dL 3.2-5.2 Albumin NORM ([facility]) bilirubin,total 0.7 mg/dL 0.2-1.0 Bilirubin,total ATHE NA ([facility]) albumin/globulin ratio Albumin/globu veda Ratio NORM ([facility]) ID Date Data Source [id number] 09/06/2020 08:48:00 AM EST NORM ([facility]) Name Value Range Interpretation Code Description Data Jania rce(s) Supporting Document(s) white blood count 5.8 10 4.0-10.0 White Blood Count NORM ([facility]) red blood count 5.59 10 4.30-6.10 Red Blood Count ATHE ([facility]) hematocrit 49.8 % 42.0-52.0 Hematocrit NORM ([facility]) hemoglobin 16.3 g/dL 13.5-17.5 Hemoglobin NORM ([facility]) mean corpuscular volume 89.1 fL 80.0-96.0 Mean Corpusc ular Volume NORM ([facility]) mean corpuscular hemoglobin 29.2 pg 27.0-33.0 Mean Cor puscular Hemoglobin NORM ([facility]) mean corpuscular HGB conc 32.7 g/dL 32.0-36.5 Mean Corpu scular HGB Conc NORM ([facility]) platelet count, automated 269 10 150-450 Platelet C ount, Automated NORM ([facility]) red cell distribution width 11.9 % 11.5-14.5 Red Cell Distribution Width NORM ([facility]) mono % 8.8 % 0.0-5.0 Above high normal [place] % NORM ([facility]) neutrophils % 60.5 % 36.0-66.0 Neutrophils % NORM ( [facility]) eos % 2.4 % 0.0-3.0 Eos % NORM ([facility]) lymph % 27.0 % 24.0-44.0 Lymph % NORM ([facility]) baso % 1.0 % 0.0-1.0 Baso % NORM ([facility]) immature granulocyte % 0.3 % 0-3.0 Immature Gran ulocyte % NORM ([facility]) neutrophils # 3.5 10 1.5-8.5 Neutrophils # NORM ( [facility]) lymph # 1.6 10 1.5-5.0 Lymph # [place] ([facility]) nucleated red blood cell % 0.0 % 0-0 Nucleated Red Blood Cell % NORM ([facility]) mono # 0.5 10 0.0-0.8 [place] # NORM ([facility]) baso # 0.1 10 0.0-0.2 Baso # NORM ([facility]) eos # 0.1 10 0.0-0.5 Eos # NORM ([facility]) ID Date Data Source [id number] 09/06/2020 08:48:00 AM EST NORM ([facility]) Name Value Range Interpretation Code Description Data Jania rce(s) Supporting Document(s) total 25(oh) vitamin D 15.0 NG/mL 30.0-100.0 Below low normal T otal 25(Oh) Vitamin D NORM ([facility]) ID Date Data Source [id number] 09/06/2020 08:48:00 AM EST N[place] ([facility]) Name Value Range Interpretation Code Description Data Jania rce(s) Supporting Document(s) thyroid stimulating hormone 9.020 uIU/mL 0.358-3.740 Above high no rmal Thyroid Stimulating Hormone NORM ([facility]) free T4 0.78 NG/dL 0.76-1.46 Free T4 NORM ([facility]) ID Date Data Source [id number] 09/06/2020 08:48:00 AM EST NORM ([facility]) Name Value Range Interpretation Code Description Data Jania rce(s) Supporting Document(s) triglycerides level 145 mg/dL <150 Triglycerides Le matthew NORM ([facility]) cholesterol level 264 mg/dL <200 Above high normal Cholesterol Level NORM ([facility]) cholesterol risk ratio <5 Above high normal Choles terol Risk Ratio NORM ([facility]) non-HDL-C 220 mg/dL Non-hdl-c NORM ([facility]) Cholesterol in LDL [Mass/volume] in Serum or Plasma 191 mg/dL <100 Above high normal LDL Cholesterol NORM ([facility]) HDL cholesterol 44 mg/dL >40 HDL Cholesterol ATHE ([facility]) ID Date Data Source [id number] 09/06/2020 08:48:00 AM EST [facility]) Name Value Range Interpretation Code Description Data Jania rce(s) Supporting Document(s) glucose, fasting 82 mg/dL 70-100 Glucose, Fasting AT [facility] ([facility]) creatinine for GFR 1.07 mg/dL 0.70-1.30 Creatinine for GF R NORM ([facility]) blood urea nitrogen 11 mg/dL 7-18 Blood Urea Nitro gen NORM ([facility]) glomerular filtration rate > 60.0 >60 Glomerula r Filtration Rate NORM ([facility]) potassium serum 4.5 mEq/L 3.5-5.1 Potassium Serum ATHE NA ([facility]) sodium level 138 mEq/L 136-145 Sodium Level NORM ([facility]) anion gap 7 mEq/L 8-16 Below low normal Anion Gap NORM ( [facility]) chloride level 101 mEq/L 98-107 Chloride Level NORM ([facility]) carbon dioxide level 30 mEq/L 21-32 Carbon Dioxide Level NORM ([facility]) AST/SGOT 20 U/L 7-37 AST/SGOT NORM ([facility]) ALT/SGPT 38 U/L 12-78 ALT/SGPT NORM ([facility]) calcium level 9.2 mg/dL 8.5-10.1 Calcium Level NORM ( [facility]) albumin 4.7 gm/dL 3.2-5.2 Albumin NORM ([facility]) alkaline phosphatase 79 U/L 45-117 Alkaline Phosph atase NORM ([facility]) total protein 8.0 gm/dL 6.4-8.2 Total Protein NORM ( [facility]) bilirubin,total 0.7 mg/dL 0.2-1.0 Bilirubin,total ATHE NA ([facility]) albumin/globulin ratio Albumin/globu veda Ratio NORM ([facility]) ID Date Data Source [id number] 09/06/2020 08:48:00 AM EST NORM ([facility]) Name Value Range Interpretation Code Description Data Jania rce(s) Supporting Document(s) white blood count 5.8 10 4.0-10.0 White Blood Count NORM ([facility]) red blood count 5.59 10 4.30-6.10 Red Blood Count ATHE NA ([facility]) mean corpuscular volume 89.1 fL 80.0-96.0 Mean Corpusc ular Volume NORM ([facility]) hematocrit 49.8 % 42.0-52.0 Hematocrit NORM ([facility]) hemoglobin 16.3 g/dL 13.5-17.5 Hemoglobin NORM ([facility]) mean corpuscular hemoglobin 29.2 pg 27.0-33.0 Mean Cor puscular Hemoglobin NORM ([facility]) mean corpuscular HGB conc 32.7 g/dL 32.0-36.5 Mean Corpu scular HGB Conc NORM ([facility]) red cell distribution width 11.9 % 11.5-14.5 Red Cell Distribution Width NORM ([facility]) lymph % 27.0 % 24.0-44.0 Lymph % NORM ([facility]) platelet count, automated 269 10 150-450 Platelet C ount, Automated NORM ([facility]) mono % 8.8 % 0.0-5.0 Above high normal [place] % NORM ([facility]) neutrophils % 60.5 % 36.0-66.0 Neutrophils % NORM ( [facility]) eos % 2.4 % 0.0-3.0 Eos % NORM ([facility]) baso % 1.0 % 0.0-1.0 Baso % [place] ([facility]) nucleated red blood cell % 0.0 % 0-0 Nucleated Red Blood Cell % [place] ([facility]) neutrophils # 3.5 10 1.5-8.5 Neutrophils # [place] ( [facility]) immature granulocyte % 0.3 % 0-3.0 Immature Gran ulocyte % NORM ([facility]) lymph # 1.6 10 1.5-5.0 Lymph # NORM ([facility]) mono # 0.5 10 0.0-0.8 [place] # NORM ([facility]) baso # 0.1 10 0.0-0.2 Baso # NORM ([facility]) eos # 0.1 10 0.0-0.5 Eos # NORM ([facility]) ID Date Data Source [id number] 09/06/2020 08:48:00 AM EST [place] ([facility]) Name Value Range Interpretation Code Description Data Jania rce(s) Supporting Document(s) total 25(oh) vitamin D 15.0 NG/mL 30.0-100.0 Below low normal T otal 25(Oh) Vitamin D [place] ([facility]) ID Date Data Source [id number] 09/06/2020 08:48:00 AM EST NORM ([facility]) Name Value Range Interpretation Code Description Data Jania rce(s) Supporting Document(s) thyroid stimulating hormone 9.020 uIU/mL 0.358-3.740 Above high no rmal Thyroid Stimulating Hormone NORM ([facility]) free T4 0.78 NG/dL 0.76-1.46 Free T4 NORM ([facility]) ID Date Data Source [id number] 09/06/2020 08:48:00 AM EST NORM ([facility]) Name Value Range Interpretation Code Description Data Jania rce(s) Supporting Document(s) triglycerides level 145 mg/dL <150 Triglycerides Le matthew NORM ([facility]) cholesterol level 264 mg/dL <200 Above high normal Cholesterol Level NORM ([facility]) non-HDL-C 220 mg/dL Non-hdl-c NORM ([facility]) Cholesterol in LDL [Mass/volume] in Serum or Plasma 191 mg/dL <100 Above high normal LDL Cholesterol NORM ([facility]) cholesterol risk ratio <5 Above high normal Choles terol Risk Ratio NORM ([facility]) HDL cholesterol 44 mg/dL >40 HDL Cholesterol ATHE ([facility]) ID Date Data Source [id number] 09/06/2020 08:48:00 AM EST N[place] ([facility]) Name Value Range Interpretation Code Description Data Jania rce(s) Supporting Document(s) glucose, fasting 82 mg/dL 70-100 Glucose, Fasting AT [place] ([facility]) blood urea nitrogen 11 mg/dL 7-18 Blood Urea Nitro gen NORM ([facility]) creatinine for GFR 1.07 mg/dL 0.70-1.30 Creatinine for GF R NORM ([facility]) sodium level 138 mEq/L 136-145 Sodium Level NORM ([facility]) chloride level 101 mEq/L 98-107 Chloride Level NORM ([facility]) glomerular filtration rate > 60.0 >60 Glomerula r Filtration Rate NORM ([facility]) potassium serum 4.5 mEq/L 3.5-5.1 Potassium Serum ATHE NA ([facility]) AST/SGOT 20 U/L 7-37 AST/SGOT NORM ([facility]) anion gap 7 mEq/L 8-16 Below low normal Anion Gap NORM ( [facility]) calcium level 9.2 mg/dL 8.5-10.1 Calcium Level NORM ( [facility]) carbon dioxide level 30 mEq/L 21-32 Carbon Dioxide Level NORM ([facility]) alkaline phosphatase 79 U/L 45-117 Alkaline Phosph atase NORM ([facility]) bilirubin,total 0.7 mg/dL 0.2-1.0 Bilirubin,total ATHE ([facility]) total protein 8.0 gm/dL 6.4-8.2 Total Protein NORM ( [facility]) ALT/SGPT 38 U/L 12-78 ALT/SGPT NORM ([facility]) albumin/globulin ratio Albumin/globu veda Ratio NORM ([facility]) albumin 4.7 gm/dL 3.2-5.2 Albumin NORM ([facility]) ID Date Data Source [id number] 09/06/2020 08:48:00 AM EST NORM ([facility]) Name Value Range Interpretation Code Description Data Jania rce(s) Supporting Document(s) white blood count 5.8 10 4.0-10.0 White Blood Count NORM ([facility]) red blood count 5.59 10 4.30-6.10 Red Blood Count ATHE ([facility]) mean corpuscular volume 89.1 fL 80.0-96.0 Mean Corpusc ular Volume NORM ([facility]) hematocrit 49.8 % 42.0-52.0 Hematocrit NORM ([facility]) hemoglobin 16.3 g/dL 13.5-17.5 Hemoglobin NORM ([facility]) red cell distribution width 11.9 % 11.5-14.5 Red Cell Distribution Width NORM ([facility]) mean corpuscular HGB conc 32.7 g/dL 32.0-36.5 Mean Corpu scular HGB Conc NORM ([facility]) mean corpuscular hemoglobin 29.2 pg 27.0-33.0 Mean Cor puscular Hemoglobin NORM ([facility]) neutrophils % 60.5 % 36.0-66.0 Neutrophils % NORM ( [facility]) mono % 8.8 % 0.0-5.0 Above high normal [place] % [place] ([facility]) platelet count, automated 269 10 150-450 Platelet C ount, Automated NORM ([facility]) lymph % 27.0 % 24.0-44.0 Lymph % [place] ([facility]) immature granulocyte % 0.3 % 0-3.0 Immature Gran ulocyte % [place] ([facility]) baso % 1.0 % 0.0-1.0 Baso % NORM ([facility]) eos % 2.4 % 0.0-3.0 Eos % NORM ([facility]) neutrophils # 3.5 10 1.5-8.5 Neutrophils # NORM ( [facility]) mono # 0.5 10 0.0-0.8 [place] # [place] ([facility]) nucleated red blood cell % 0.0 % 0-0 Nucleated Red Blood Cell % NORM ([facility]) lymph # 1.6 10 1.5-5.0 Lymph # NORM ([facility]) baso # 0.1 10 0.0-0.2 Baso # NORM ([facility]) eos # 0.1 10 0.0-0.5 Eos # NORM ([facility]) ID Date Data Source [id number] 09/06/2020 08:48:00 AM EST [place] ([facility]) Name Value Range Interpretation Code Description Data Jania rce(s) Supporting Document(s) total 25(oh) vitamin D 15.0 NG/mL 30.0-100.0 Below low normal T otal 25(Oh) Vitamin D NORM ([facility]) ID Date Data Source [id number] 09/06/2020 08:48:00 AM EST NORM ([facility]) Name Value Range Interpretation Code Description Data Jania rce(s) Supporting Document(s) thyroid stimulating hormone 9.020 uIU/mL 0.358-3.740 Above high no rmal Thyroid Stimulating Hormone NORM ([facility]) free T4 0.78 NG/dL 0.76-1.46 Free T4 NORM ([facility]) ID Date Data Source [id number] 09/06/2020 08:48:00 AM EST NORM ([facility]) Name Value Range Interpretation Code Description Data Jania rce(s) Supporting Document(s) cholesterol level 264 mg/dL <200 Above high normal Cholesterol Level NORM ([facility]) triglycerides level 145 mg/dL <150 Triglycerides Le matthew NORM ([facility]) Cholesterol in LDL [Mass/volume] in Serum or Plasma 191 mg/dL <100 Above high normal LDL Cholesterol NORM ([facility]) HDL cholesterol 44 mg/dL >40 HDL Cholesterol ATHE NA ([facility]) non-HDL-C 220 mg/dL Non-hdl-c NORM ([facility]) cholesterol risk ratio <5 Above high normal Choles terol Risk Ratio NORM ([facility]) ID Date Data Source [id number] 09/06/2020 08:48:00 AM EST NORM ([facility]) Name Value Range Interpretation Code Description Data Jania rce(s) Supporting Document(s) blood urea nitrogen 11 mg/dL 7-18 Blood Urea Nitro gen NORM ([facility]) glucose, fasting 82 mg/dL 70-100 Glucose, Fasting AT [place] ([facility]) creatinine for GFR 1.07 mg/dL 0.70-1.30 Creatinine for GF R NORM ([facility]) glomerular filtration rate > 60.0 >60 Glomerula r Filtration Rate NORM ([facility]) potassium serum 4.5 mEq/L 3.5-5.1 Potassium Serum ATHE NA ([facility]) sodium level 138 mEq/L 136-145 Sodium Level NORM ([facility]) chloride level 101 mEq/L 98-107 Chloride Level NORM ([facility]) carbon dioxide level 30 mEq/L 21-32 Carbon Dioxide Level NORM ([facility]) calcium level 9.2 mg/dL 8.5-10.1 Calcium Level NORM ( [facility]) anion gap 7 mEq/L 8-16 Below low normal Anion Gap NORM ( [facility]) AST/SGOT 20 U/L 7-37 AST/SGOT NORM ([facility]) total protein 8.0 gm/dL 6.4-8.2 Total Protein NORM ( [facility]) ALT/SGPT 38 U/L 12-78 ALT/SGPT NORM ([facility]) bilirubin,total 0.7 mg/dL 0.2-1.0 Bilirubin,total ATHE NA ([facility]) alkaline phosphatase 79 U/L 45-117 Alkaline Phosph atase NORM ([facility]) albumin 4.7 gm/dL 3.2-5.2 Albumin NORM ([facility]) albumin/globulin ratio Albumin/globu veda Ratio NORM ([facility]) ID Date Data Source [id number] 09/06/2020 08:48:00 AM EST NORM ([facility]) Name Value Range Interpretation Code Description Data Jania rce(s) Supporting Document(s) white blood count 5.8 10 4.0-10.0 White Blood Count NORM ([facility]) red blood count 5.59 10 4.30-6.10 Red Blood Count ATHE ([facility]) mean corpuscular volume 89.1 fL 80.0-96.0 Mean Corpusc ular Volume NORM ([facility]) mean corpuscular hemoglobin 29.2 pg 27.0-33.0 Mean Cor puscular Hemoglobin NORM ([facility]) hematocrit 49.8 % 42.0-52.0 Hematocrit NORM ([facility]) hemoglobin 16.3 g/dL 13.5-17.5 Hemoglobin NORM ([facility]) platelet count, automated 269 10 150-450 Platelet C ount, Automated NORM ([facility]) red cell distribution width 11.9 % 11.5-14.5 Red Cell Distribution Width NORM ([facility]) mean corpuscular HGB conc 32.7 g/dL 32.0-36.5 Mean Corpu scular HGB Conc NORM ([facility]) lymph % 27.0 % 24.0-44.0 Lymph % NORM ([facility]) neutrophils % 60.5 % 36.0-66.0 Neutrophils % NORM ( [facility]) mono % 8.8 % 0.0-5.0 Above high normal [place] % NORM ([facility]) eos % 2.4 % 0.0-3.0 Eos % NORM ([facility]) baso % 1.0 % 0.0-1.0 Baso % NORM ([facility]) nucleated red blood cell % 0.0 % 0-0 Nucleated Red Blood Cell % NORM ([facility]) neutrophils # 3.5 10 1.5-8.5 Neutrophils # [place] ( [facility]) immature granulocyte % 0.3 % 0-3.0 Immature Gran ulocyte % NORM ([facility]) eos # 0.1 10 0.0-0.5 Eos # NORM ([facility]) lymph # 1.6 10 1.5-5.0 Lymph # NORM ([facility]) mono # 0.5 10 0.0-0.8 [place] # NORM ([facility]) baso # 0.1 10 0.0-0.2 Baso # NORM ([facility]) ID Date Data Source [id number] 09/06/2020 08:48:00 AM EST [place] ([facility]) Name Value Range Interpretation Code Description Data Jania rce(s) Supporting Document(s) total 25(oh) vitamin D 15.0 NG/mL 30.0-100.0 Below low normal T otal 25(Oh) Vitamin D NORM ([facility]) ID Date Data Source [id number] 09/06/2020 08:48:00 AM EST NORM ([facility]) Name Value Range Interpretation Code Description Data Jania rce(s) Supporting Document(s) free T4 0.78 NG/dL 0.76-1.46 Free T4 NORM ([facility]) thyroid stimulating hormone 9.020 uIU/mL 0.358-3.740 Above high no rmal Thyroid Stimulating Hormone NORM ([facility]) ID Date Data Source [id number] 09/06/2020 08:48:00 AM EST NORM ([facility]) Name Value Range Interpretation Code Description Data Jania rce(s) Supporting Document(s) cholesterol level 264 mg/dL <200 Above high normal Cholesterol Level NORM ([facility]) triglycerides level 145 mg/dL <150 Triglycerides Le matthew NORM ([facility]) non-HDL-C 220 mg/dL Non-hdl-c NORM ([facility]) Cholesterol in LDL [Mass/volume] in Serum or Plasma 191 mg/dL <100 Above high normal LDL Cholesterol NORM ([facility]) HDL cholesterol 44 mg/dL >40 HDL Cholesterol ATHE NA ([facility]) cholesterol risk ratio <5 Above high normal Choles terol Risk Ratio NORM ([facility]) ID Date Data Source [id number] 09/06/2020 08:48:00 AM EST NORM ([facility]) Name Value Range Interpretation Code Description Data Jania rce(s) Supporting Document(s) blood urea nitrogen 11 mg/dL 7-18 Blood Urea Nitro gen NORM ([facility]) glucose, fasting 82 mg/dL 70-100 Glucose, Fasting AT [facility] ([facility]) creatinine for GFR 1.07 mg/dL 0.70-1.30 Creatinine for GF R NORM ([facility]) sodium level 138 mEq/L 136-145 Sodium Level NORM ([facility]) potassium serum 4.5 mEq/L 3.5-5.1 Potassium Serum ATHE NA ([facility]) glomerular filtration rate > 60.0 >60 Glomerula r Filtration Rate NORM ([facility]) anion gap 7 mEq/L 8-16 Below low normal Anion Gap NORM ( [facility]) calcium level 9.2 mg/dL 8.5-10.1 Calcium Level NORM ( [facility]) chloride level 101 mEq/L 98-107 Chloride Level NORM ([facility]) carbon dioxide level 30 mEq/L 21-32 Carbon Dioxide Level NORM ([facility]) AST/SGOT 20 U/L 7-37 AST/SGOT NORM ([facility]) ALT/SGPT 38 U/L 12-78 ALT/SGPT NORM ([facility]) bilirubin,total 0.7 mg/dL 0.2-1.0 Bilirubin,total ATHE ([facility]) alkaline phosphatase 79 U/L 45-117 Alkaline Phosph atase NORM ([facility]) albumin/globulin ratio Albumin/globu veda Ratio NORM ([facility]) albumin 4.7 gm/dL 3.2-5.2 Albumin NORM ([facility]) total protein 8.0 gm/dL 6.4-8.2 Total Protein NORM ( [facility]) ID Date Data Source [id number] 09/06/2020 08:48:00 AM EST NORM ([facility]) Name Value Range Interpretation Code Description Data Jania rce(s) Supporting Document(s) white blood count 5.8 10 4.0-10.0 White Blood Count NORM ([facility]) hemoglobin 16.3 g/dL 13.5-17.5 Hemoglobin NORM ([facility]) red blood count 5.59 10 4.30-6.10 Red Blood Count ATHE NA ([facility]) mean corpuscular volume 89.1 fL 80.0-96.0 Mean Corpusc ular Volume NORM ([facility]) hematocrit 49.8 % 42.0-52.0 Hematocrit NORM ([facility]) red cell distribution width 11.9 % 11.5-14.5 Red Cell Distribution Width NORM ([facility]) mean corpuscular hemoglobin 29.2 pg 27.0-33.0 Mean Cor puscular Hemoglobin NORM ([facility]) mean corpuscular HGB conc 32.7 g/dL 32.0-36.5 Mean Corpu scular HGB Conc NORM ([facility]) platelet count, automated 269 10 150-450 Platelet C ount, Automated NORM ([facility]) neutrophils % 60.5 % 36.0-66.0 Neutrophils % NORM ( [facility]) mono % 8.8 % 0.0-5.0 Above high normal [place] % NORM ([facility]) lymph % 27.0 % 24.0-44.0 Lymph % NORM ([facility]) eos % 2.4 % 0.0-3.0 Eos % NORM ([facility]) immature granulocyte % 0.3 % 0-3.0 Immature Gran ulocyte % NORM ([facility]) baso % 1.0 % 0.0-1.0 Baso % NORM ([facility]) mono # 0.5 10 0.0-0.8 [place] # NORM ([facility]) neutrophils # 3.5 10 1.5-8.5 Neutrophils # NORM ( [facility]) lymph # 1.6 10 1.5-5.0 Lymph # NORM ([facility]) nucleated red blood cell % 0.0 % 0-0 Nucleated Red Blood Cell % NORM ([facility]) eos # 0.1 10 0.0-0.5 Eos # NORM ([facility]) baso # 0.1 10 0.0-0.2 Baso # NORM ([facility]) ID Date Data Source [id number] 09/06/2020 08:48:00 AM EST NORM ([facility]) Name Value Range Interpretation Code Description Data Jania rce(s) Supporting Document(s) total 25(oh) vitamin D 15.0 NG/mL 30.0-100.0 Below low normal T otal 25(Oh) Vitamin D NORM ([facility]) ID Date Data Source [id number] 09/06/2020 08:48:00 AM EST NORM ([facility]) Name Value Range Interpretation Code Description Data Jania rce(s) Supporting Document(s) thyroid stimulating hormone 9.020 uIU/mL 0.358-3.740 Above high no rmal Thyroid Stimulating Hormone NORM ([facility]) free T4 0.78 NG/dL 0.76-1.46 Free T4 NORM ([facility]) ID Date Data Source [id number] 09/06/2020 08:48:00 AM EST NORM ([facility]) Name Value Range Interpretation Code Description Data Jania rce(s) Supporting Document(s) triglycerides level 145 mg/dL <150 Triglycerides Le matthew NORM ([facility]) non-HDL-C 220 mg/dL Non-hdl-c NORM ([facility]) cholesterol level 264 mg/dL <200 Above high normal Cholesterol Level NORM ([facility]) HDL cholesterol 44 mg/dL >40 HDL Cholesterol ATHE NA ([facility]) Cholesterol in LDL [Mass/volume] in Serum or Plasma 191 mg/dL <100 Above high normal LDL Cholesterol NORM ([facility]) cholesterol risk ratio <5 Above high normal Choles terol Risk Ratio NORM ([facility]) ID Date Data Source [id number] 09/06/2020 08:48:00 AM EST NORM ([facility]) Name Value Range Interpretation Code Description Data Jania rce(s) Supporting Document(s) glucose, fasting 82 mg/dL 70-100 Glucose, Fasting AT [facility] ([facility]) creatinine for GFR 1.07 mg/dL 0.70-1.30 Creatinine for GF R NORM ([facility]) blood urea nitrogen 11 mg/dL 7-18 Blood Urea Nitro gen NORM ([facility]) potassium serum 4.5 mEq/L 3.5-5.1 Potassium Serum ATHE NA ([facility]) sodium level 138 mEq/L 136-145 Sodium Level NORM ([facility]) glomerular filtration rate > 60.0 >60 Glomerula r Filtration Rate NORM ([facility]) anion gap 7 mEq/L 8-16 Below low normal Anion Gap NORM ( [facility]) carbon dioxide level 30 mEq/L 21-32 Carbon Dioxide Level NORM ([facility]) chloride level 101 mEq/L 98-107 Chloride Level NORM ([facility]) AST/SGOT 20 U/L 7-37 AST/SGOT NORM ([facility]) ALT/SGPT 38 U/L 12-78 ALT/SGPT NORM ([facility]) calcium level 9.2 mg/dL 8.5-10.1 Calcium Level NORM ( [facility]) total protein 8.0 gm/dL 6.4-8.2 Total Protein NORM ( [facility]) bilirubin,total 0.7 mg/dL 0.2-1.0 Bilirubin,total ATHE ([facility]) alkaline phosphatase 79 U/L 45-117 Alkaline Phosph atase NORM ([facility]) albumin 4.7 gm/dL 3.2-5.2 Albumin NORM ([facility]) albumin/globulin ratio Albumin/globu veda Ratio NORM ([facility]) ID Date Data Source [id number] 09/06/2020 08:48:00 AM EST NORM ([facility]) Name Value Range Interpretation Code Description Data Jania rce(s) Supporting Document(s) white blood count 5.8 10 4.0-10.0 White Blood Count NORM ([facility]) red blood count 5.59 10 4.30-6.10 Red Blood Count ATHE NA ([facility]) hemoglobin 16.3 g/dL 13.5-17.5 Hemoglobin NORM ([facility]) hematocrit 49.8 % 42.0-52.0 Hematocrit NORM ([facility]) mean corpuscular hemoglobin 29.2 pg 27.0-33.0 Mean Cor puscular Hemoglobin NORM ([facility]) mean corpuscular volume 89.1 fL 80.0-96.0 Mean Corpusc ular Volume NORM ([facility]) red cell distribution width 11.9 % 11.5-14.5 Red Cell Distribution Width NORM ([facility]) platelet count, automated 269 10 150-450 Platelet C ount, Automated NORM ([facility]) mean corpuscular HGB conc 32.7 g/dL 32.0-36.5 Mean Corpu scular HGB Conc NORM ([facility]) lymph % 27.0 % 24.0-44.0 Lymph % NORM ([facility]) neutrophils % 60.5 % 36.0-66.0 Neutrophils % NORM ( [facility]) eos % 2.4 % 0.0-3.0 Eos % NORM ([facility]) mono % 8.8 % 0.0-5.0 Above high normal [place] % NORM ([facility]) baso % 1.0 % 0.0-1.0 Baso % NORM ([facility]) immature granulocyte % 0.3 % 0-3.0 Immature Gran ulocyte % NORM ([facility]) nucleated red blood cell % 0.0 % 0-0 Nucleated Red Blood Cell % NORM ([facility]) mono # 0.5 10 0.0-0.8 [place] # NORM ([facility]) lymph # 1.6 10 1.5-5.0 Lymph # NORM ([facility]) neutrophils # 3.5 10 1.5-8.5 Neutrophils # NORM ( [facility]) baso # 0.1 10 0.0-0.2 Baso # NORM ([facility]) eos # 0.1 10 0.0-0.5 Eos # NORM ([facility]) ID Date Data Source [id number] 09/06/2020 08:48:00 AM EST NORM ([facility]) Name Value Range Interpretation Code Description Data Jania rce(s) Supporting Document(s) total 25(oh) vitamin D 15.0 NG/mL 30.0-100.0 Below low normal T otal 25(Oh) Vitamin D NORM ([facility]) ID Date Data Source [id number] 09/06/2020 08:48:00 AM EST NORM ([facility]) Name Value Range Interpretation Code Description Data Jania rce(s) Supporting Document(s) free T4 0.78 NG/dL 0.76-1.46 Free T4 NORM ([facility]) thyroid stimulating hormone 9.020 uIU/mL 0.358-3.740 Above high no rmal Thyroid Stimulating Hormone NORM ([facility]) ID Date Data Source [id number] 09/06/2020 08:48:00 AM EST NORM ([facility]) Name Value Range Interpretation Code Description Data Jania rce(s) Supporting Document(s) triglycerides level 145 mg/dL <150 Triglycerides Le matthew NORM ([facility]) cholesterol level 264 mg/dL <200 Above high normal Cholesterol Level NORM ([facility]) HDL cholesterol 44 mg/dL >40 HDL Cholesterol ATHE NA ([facility]) Cholesterol in LDL [Mass/volume] in Serum or Plasma 191 mg/dL <100 Above high normal LDL Cholesterol NORM ([facility]) non-HDL-C 220 mg/dL Non-hdl-c NORM ([facility]) cholesterol risk ratio <5 Above high normal Choles terol Risk Ratio NORM ([facility]) ID Date Data Source [id number] 09/06/2020 08:48:00 AM EST NORM ([facility]) Name Value Range Interpretation Code Description Data Jania rce(s) Supporting Document(s) glucose, fasting 82 mg/dL 70-100 Glucose, Fasting AT [facility] ([facility]) glomerular filtration rate > 60.0 >60 Glomerula r Filtration Rate NORM ([facility]) sodium level 138 mEq/L 136-145 Sodium Level NORM ([facility]) creatinine for GFR 1.07 mg/dL 0.70-1.30 Creatinine for GF R NORM ([facility]) blood urea nitrogen 11 mg/dL 7-18 Blood Urea Nitro gen NORM ([facility]) potassium serum 4.5 mEq/L 3.5-5.1 Potassium Serum ATHE NA ([facility]) chloride level 101 mEq/L 98-107 Chloride Level [place] ([facility]) carbon dioxide level 30 mEq/L 21-32 Carbon Dioxide Level NORM ([facility]) anion gap 7 mEq/L 8-16 Below low normal Anion Gap NORM ( [facility]) AST/SGOT 20 U/L 7-37 AST/SGOT NORM ([facility]) ALT/SGPT 38 U/L 12-78 ALT/SGPT NORM ([facility]) calcium level 9.2 mg/dL 8.5-10.1 Calcium Level NORM ( [facility]) alkaline phosphatase 79 U/L 45-117 Alkaline Phosph atase NORM ([facility]) total protein 8.0 gm/dL 6.4-8.2 Total Protein NORM ( [facility]) bilirubin,total 0.7 mg/dL 0.2-1.0 Bilirubin,total ATHE NA ([facility]) albumin 4.7 gm/dL 3.2-5.2 Albumin NORM ([facility]) albumin/globulin ratio Albumin/globu veda Ratio NORM ([facility]) ID Date Data Source [id number] 09/06/2020 08:48:00 AM EST NORM ([facility]) Name Value Range Interpretation Code Description Data Jania rce(s) Supporting Document(s) white blood count 5.8 10 4.0-10.0 White Blood Count NORM ([facility]) hemoglobin 16.3 g/dL 13.5-17.5 Hemoglobin NORM ([facility]) red blood count 5.59 10 4.30-6.10 Red Blood Count ATHE NA ([facility]) mean corpuscular volume 89.1 fL 80.0-96.0 Mean Corpusc ular Volume NORM ([facility]) hematocrit 49.8 % 42.0-52.0 Hematocrit NORM ([facility]) mean corpuscular HGB conc 32.7 g/dL 32.0-36.5 Mean Corpu scular HGB Conc NORM ([facility]) mean corpuscular hemoglobin 29.2 pg 27.0-33.0 Mean Cor puscular Hemoglobin NORM ([facility]) neutrophils % 60.5 % 36.0-66.0 Neutrophils % NORM ( [facility]) lymph % 27.0 % 24.0-44.0 Lymph % NORM ([facility]) red cell distribution width 11.9 % 11.5-14.5 Red Cell Distribution Width NORM ([facility]) platelet count, automated 269 10 150-450 Platelet C ount, Automated NORM ([facility]) eos % 2.4 % 0.0-3.0 Eos % NORM ([facility]) baso % 1.0 % 0.0-1.0 Baso % NORM ([facility]) mono % 8.8 % 0.0-5.0 Above high normal [place] % NORM ([facility]) nucleated red blood cell % 0.0 % 0-0 Nucleated Red Blood Cell % NORM ([facility]) neutrophils # 3.5 10 1.5-8.5 Neutrophils # [place] ( [facility]) immature granulocyte % 0.3 % 0-3.0 Immature Gran ulocyte % NORM ([facility]) lymph # 1.6 10 1.5-5.0 Lymph # NORM ([facility]) mono # 0.5 10 0.0-0.8 [place] # NORM ([facility]) baso # 0.1 10 0.0-0.2 Baso # NORM ([facility]) eos # 0.1 10 0.0-0.5 Eos # NORM ([facility]) ID Date Data Source [id number] 09/06/2020 08:48:00 AM EST NORM ([facility]) Name Value Range Interpretation Code Description Data Jania rce(s) Supporting Document(s) total 25(oh) vitamin D 15.0 NG/mL 30.0-100.0 Below low normal T otal 25(Oh) Vitamin D NORM ([facility]) ID Date Data Source [id number] 09/06/2020 08:48:00 AM EST NORM ([facility]) Name Value Range Interpretation Code Description Data Jania rce(s) Supporting Document(s) free T4 0.78 NG/dL 0.76-1.46 Free T4 NORM ([facility]) thyroid stimulating hormone 9.020 uIU/mL 0.358-3.740 Above high no rmal Thyroid Stimulating Hormone NORM ([facility]) ID Date Data Source [id number] 09/06/2020 08:48:00 AM EST NORM ([facility]) Name Value Range Interpretation Code Description Data Jania rce(s) Supporting Document(s) cholesterol level 264 mg/dL <200 Above high normal Cholesterol Level NORM ([facility]) HDL cholesterol 44 mg/dL >40 HDL Cholesterol ATHE NA ([facility]) triglycerides level 145 mg/dL <150 Triglycerides Le matthew NORM ([facility]) cholesterol risk ratio <5 Above high normal Choles terol Risk Ratio NORM ([facility]) Cholesterol in LDL [Mass/volume] in Serum or Plasma 191 mg/dL <100 Above high normal LDL Cholesterol NORM ([facility]) non-HDL-C 220 mg/dL Non-hdl-c NORM ([facility]) ID Date Data Source [id number] 09/06/2020 08:48:00 AM EST NORM ([facility]) Name Value Range Interpretation Code Description Data Jania rce(s) Supporting Document(s) glucose, fasting 82 mg/dL 70-100 Glucose, Fasting AT [facility] ([facility]) blood urea nitrogen 11 mg/dL 7-18 Blood Urea Nitro gen NORM ([facility]) glomerular filtration rate > 60.0 >60 Glomerula r Filtration Rate NORM ([facility]) sodium level 138 mEq/L 136-145 Sodium Level NORM ([facility]) creatinine for GFR 1.07 mg/dL 0.70-1.30 Creatinine for GF R NORM ([facility]) chloride level 101 mEq/L 98-107 Chloride Level NORM ([facility]) carbon dioxide level 30 mEq/L 21-32 Carbon Dioxide Level NORM ([facility]) anion gap 7 mEq/L 8-16 Below low normal Anion Gap NORM ( [facility]) potassium serum 4.5 mEq/L 3.5-5.1 Potassium Serum ATHE ([facility]) alkaline phosphatase 79 U/L 45-117 Alkaline Phosph atase NORM ([facility]) ALT/SGPT 38 U/L 12-78 ALT/SGPT NORM ([facility]) AST/SGOT 20 U/L 7-37 AST/SGOT NORM ([facility]) calcium level 9.2 mg/dL 8.5-10.1 Calcium Level NORM ( [facility]) total protein 8.0 gm/dL 6.4-8.2 Total Protein NORM ( [facility]) albumin 4.7 gm/dL 3.2-5.2 Albumin NORM ([facility]) bilirubin,total 0.7 mg/dL 0.2-1.0 Bilirubin,total ATHE ([facility]) albumin/globulin ratio Albumin/globu veda Ratio NORM ([facility]) ID Date Data Source [id number] 09/06/2020 08:48:00 AM EST NORM ([facility]) Name Value Range Interpretation Code Description Data Jania rce(s) Supporting Document(s) white blood count 5.8 10 4.0-10.0 White Blood Count NORM ([facility]) hemoglobin 16.3 g/dL 13.5-17.5 Hemoglobin NORM ([facility]) red blood count 5.59 10 4.30-6.10 Red Blood Count ATHE NA ([facility]) mean corpuscular HGB conc 32.7 g/dL 32.0-36.5 Mean Corpu scular HGB Conc NORM ([facility]) mean corpuscular hemoglobin 29.2 pg 27.0-33.0 Mean Cor puscular Hemoglobin NORM ([facility]) mean corpuscular volume 89.1 fL 80.0-96.0 Mean Corpusc ular Volume NORM ([facility]) hematocrit 49.8 % 42.0-52.0 Hematocrit NORM ([facility]) neutrophils % 60.5 % 36.0-66.0 Neutrophils % NORM ( [facility]) platelet count, automated 269 10 150-450 Platelet C ount, Automated NORM ([facility]) red cell distribution width 11.9 % 11.5-14.5 Red Cell Distribution Width NORM ([facility]) eos % 2.4 % 0.0-3.0 Eos % NORM ([facility]) baso % 1.0 % 0.0-1.0 Baso % NORM ([facility]) mono % 8.8 % 0.0-5.0 Above high normal [place] % NORM ([facility]) lymph % 27.0 % 24.0-44.0 Lymph % NORM ([facility]) neutrophils # 3.5 10 1.5-8.5 Neutrophils # NORM ( [facility]) nucleated red blood cell % 0.0 % 0-0 Nucleated Red Blood Cell % NORM ([facility]) lymph # 1.6 10 1.5-5.0 Lymph # NORM ([facility]) immature granulocyte % 0.3 % 0-3.0 Immature Gran ulocyte % NORM ([facility]) mono # 0.5 10 0.0-0.8 [place] # NORM ([facility]) baso # 0.1 10 0.0-0.2 Baso # NORM ([facility]) eos # 0.1 10 0.0-0.5 Eos # NORM ([facility]) ID Date Data Source [id number] 09/06/2020 08:48:00 AM EST NORM ([facility]) Name Value Range Interpretation Code Description Data Jania rce(s) Supporting Document(s) total 25(oh) vitamin D 15.0 NG/mL 30.0-100.0 Below low normal T otal 25(Oh) Vitamin D [place] ([facility]) ID Date Data Source [id number] 09/06/2020 08:48:00 AM EST NORM ([facility]) Name Value Range Interpretation Code Description Data Jania rce(s) Supporting Document(s) thyroid stimulating hormone 9.020 uIU/mL 0.358-3.740 Above high no rmal Thyroid Stimulating Hormone NORM ([facility]) free T4 0.78 NG/dL 0.76-1.46 Free T4 [place] ([facility]) ID Date Data Source [id number] 09/06/2020 08:48:00 AM EST NORM ([facility]) Name Value Range Interpretation Code Description Data Jania rce(s) Supporting Document(s) cholesterol level 264 mg/dL <200 Above high normal Cholesterol Level NORM ([facility]) triglycerides level 145 mg/dL <150 Triglycerides Le matthew NORM ([facility]) Cholesterol in LDL [Mass/volume] in Serum or Plasma 191 mg/dL <100 Above high normal LDL Cholesterol NORM ([facility]) non-HDL-C 220 mg/dL Non-hdl-c NORM ([facility]) HDL cholesterol 44 mg/dL >40 HDL Cholesterol ATHE ([facility]) cholesterol risk ratio <5 Above high normal Choles terol Risk Ratio NORM ([facility]) ID Date Data Source [id number] 09/06/2020 08:48:00 AM EST NORM ([facility]) Name Value Range Interpretation Code Description Data Jania rce(s) Supporting Document(s) glucose, fasting 82 mg/dL 70-100 Glucose, Fasting AT [facility] ([facility]) glomerular filtration rate > 60.0 >60 Glomerula r Filtration Rate NORM ([facility]) creatinine for GFR 1.07 mg/dL 0.70-1.30 Creatinine for GF R NORM ([facility]) blood urea nitrogen 11 mg/dL 7-18 Blood Urea Nitro gen NORM ([facility]) potassium serum 4.5 mEq/L 3.5-5.1 Potassium Serum ATHE ([facility]) sodium level 138 mEq/L 136-145 Sodium Level NORM ([facility]) chloride level 101 mEq/L 98-107 Chloride Level NORM ([facility]) carbon dioxide level 30 mEq/L 21-32 Carbon Dioxide Level [place] ([facility]) calcium level 9.2 mg/dL 8.5-10.1 Calcium Level NORM ( [facility]) AST/SGOT 20 U/L 7-37 AST/SGOT NORM ([facility]) anion gap 7 mEq/L 8-16 Below low normal Anion Gap NORM ( [facility]) alkaline phosphatase 79 U/L 45-117 Alkaline Phosph atase NORM ([facility]) ALT/SGPT 38 U/L 12-78 ALT/SGPT NORM ([facility]) total protein 8.0 gm/dL 6.4-8.2 Total Protein NORM ( [facility]) bilirubin,total 0.7 mg/dL 0.2-1.0 Bilirubin,total ATHE [facility]) albumin 4.7 gm/dL 3.2-5.2 Albumin NORM ([facility]) albumin/globulin ratio Albumin/globu veda Ratio NORM ([facility]) ID Date Data Source [id number] 09/06/2020 08:48:00 AM EST NORM ([facility]) Name Value Range Interpretation Code Description Data Jania rce(s) Supporting Document(s) white blood count 5.8 10 4.0-10.0 White Blood Count NORM ([facility]) hemoglobin 16.3 g/dL 13.5-17.5 Hemoglobin NORM ([facility]) red blood count 5.59 10 4.30-6.10 Red Blood Count ATHE NA ([facility]) hematocrit 49.8 % 42.0-52.0 Hematocrit NORM ([facility]) mean corpuscular volume 89.1 fL 80.0-96.0 Mean Corpusc ular Volume NORM ([facility]) mean corpuscular hemoglobin 29.2 pg 27.0-33.0 Mean Cor puscular Hemoglobin NORM ([facility]) mean corpuscular HGB conc 32.7 g/dL 32.0-36.5 Mean Corpu scular HGB Conc NORM ([facility]) neutrophils % 60.5 % 36.0-66.0 Neutrophils % NORM ( [facility]) red cell distribution width 11.9 % 11.5-14.5 Red Cell Distribution Width NORM ([facility]) lymph % 27.0 % 24.0-44.0 Lymph % NORM ([facility]) platelet count, automated 269 10 150-450 Platelet C ount, Automated NORM ([facility]) immature granulocyte % 0.3 % 0-3.0 Immature Gran ulocyte % NORM ([facility]) baso % 1.0 % 0.0-1.0 Baso % NORM ([facility]) eos % 2.4 % 0.0-3.0 Eos % NORM ([facility]) mono % 8.8 % 0.0-5.0 Above high normal [place] % NORM ([facility]) nucleated red blood cell % 0.0 % 0-0 Nucleated Red Blood Cell % NORM ([facility]) neutrophils # 3.5 10 1.5-8.5 Neutrophils # NORM ( [facility]) mono # 0.5 10 0.0-0.8 [place] # NORM ([facility]) baso # 0.1 10 0.0-0.2 Baso # NORM ([facility]) lymph # 1.6 10 1.5-5.0 Lymph # NORM ([facility]) eos # 0.1 10 0.0-0.5 Eos # NORM ([facility]) ID Date Data Source [id number] 09/06/2020 08:48:00 AM EST NORM ([facility]) Name Value Range Interpretation Code Description Data Jania rce(s) Supporting Document(s) total 25(oh) vitamin D 15.0 NG/mL 30.0-100.0 Below low normal T otal 25(Oh) Vitamin D [place] ([facility]) ID Date Data Source [id number] 09/06/2020 08:48:00 AM EST NORM ([facility]) Name Value Range Interpretation Code Description Data Jania rce(s) Supporting Document(s) thyroid stimulating hormone 9.020 uIU/mL 0.358-3.740 Above high no rmal Thyroid Stimulating Hormone NORM ([facility]) free T4 0.78 NG/dL 0.76-1.46 Free T4 NORM ([facility]) ID Date Data Source [id number] 09/06/2020 08:48:00 AM EST NORM ([facility]) Name Value Range Interpretation Code Description Data Jania rce(s) Supporting Document(s) triglycerides level 145 mg/dL <150 Triglycerides Le matthew NORM ([facility]) Cholesterol in LDL [Mass/volume] in Serum or Plasma 191 mg/dL <100 Above high normal LDL Cholesterol NORM ([facility]) HDL cholesterol 44 mg/dL >40 HDL Cholesterol ATHE ([facility]) non-HDL-C 220 mg/dL Non-hdl-c NORM ([facility]) cholesterol level 264 mg/dL <200 Above high normal Cholesterol Level NORM ([facility]) cholesterol risk ratio <5 Above high normal Choles terol Risk Ratio NORM ([facility]) ID Date Data Source [id number] 09/06/2020 08:48:00 AM EST NORM ([facility]) Name Value Range Interpretation Code Description Data Jania rce(s) Supporting Document(s) blood urea nitrogen 11 mg/dL 7-18 Blood Urea Nitro gen NORM ([facility]) glucose, fasting 82 mg/dL 70-100 Glucose, Fasting AT [facility] ([facility]) creatinine for GFR 1.07 mg/dL 0.70-1.30 Creatinine for GF R NORM ([facility]) carbon dioxide level 30 mEq/L 21-32 Carbon Dioxide Level NORM ([facility]) potassium serum 4.5 mEq/L 3.5-5.1 Potassium Serum ATHE ([facility]) glomerular filtration rate > 60.0 >60 Glomerula r Filtration Rate NORM ([facility]) sodium level 138 mEq/L 136-145 Sodium Level NORM ([facility]) chloride level 101 mEq/L 98-107 Chloride Level NORM ([facility]) anion gap 7 mEq/L 8-16 Below low normal Anion Gap NORM ( [facility]) AST/SGOT 20 U/L 7-37 AST/SGOT NORM ([facility]) calcium level 9.2 mg/dL 8.5-10.1 Calcium Level NORM ( [facility]) bilirubin,total 0.7 mg/dL 0.2-1.0 Bilirubin,total ATHE ([facility]) ALT/SGPT 38 U/L 12-78 ALT/SGPT NORM ([facility]) alkaline phosphatase 79 U/L 45-117 Alkaline Phosph atase NORM ([facility]) total protein 8.0 gm/dL 6.4-8.2 Total Protein NORM ( [facility]) albumin 4.7 gm/dL 3.2-5.2 Albumin NORM ([facility]) albumin/globulin ratio Albumin/globu veda Ratio NORM ([facility]) ID Date Data Source [id number] 09/06/2020 08:48:00 AM EST NORM ([facility]) Name Value Range Interpretation Code Description Data Jania rce(s) Supporting Document(s) white blood count 5.8 10 4.0-10.0 White Blood Count NORM ([facility]) red blood count 5.59 10 4.30-6.10 Red Blood Count ATHE ([facility]) hemoglobin 16.3 g/dL 13.5-17.5 Hemoglobin NORM ([facility]) mean corpuscular volume 89.1 fL 80.0-96.0 Mean Corpusc ular Volume NORM ([facility]) hematocrit 49.8 % 42.0-52.0 Hematocrit NORM ([facility]) mean corpuscular hemoglobin 29.2 pg 27.0-33.0 Mean Cor puscular Hemoglobin NORM ([facility]) mean corpuscular HGB conc 32.7 g/dL 32.0-36.5 Mean Corpu scular HGB Conc NORM ([facility]) red cell distribution width 11.9 % 11.5-14.5 Red Cell Distribution Width NORM ([facility]) platelet count, automated 269 10 150-450 Platelet C ount, Automated NORM ([facility]) mono % 8.8 % 0.0-5.0 Above high normal [place]rill % NORM ([facility]) neutrophils % 60.5 % 36.0-66.0 Neutrophils % NORM ( [facility]) lymph % 27.0 % 24.0-44.0 Lymph % NORM ([facility]) eos % 2.4 % 0.0-3.0 Eos % NORM ([facility]) nucleated red blood cell % 0.0 % 0-0 Nucleated Red Blood Cell % NORM ([facility]) baso % 1.0 % 0.0-1.0 Baso % NORM ([facility]) immature granulocyte % 0.3 % 0-3.0 Immature Gran ulocyte % NORM ([facility]) mono # 0.5 10 0.0-0.8 Morrill # NORM ([facility]) neutrophils # 3.5 10 1.5-8.5 Neutrophils # NORM ( [facility]) lymph # 1.6 10 1.5-5.0 Lymph # NORM ([facility]) eos # 0.1 10 0.0-0.5 Eos # NORM ([facility]) baso # 0.1 10 0.0-0.2 Baso # NORM ([facility]) ID Date Data Source [id number] 09/06/2020 08:48:00 AM EST [place] ([facility]) Name Value Range Interpretation Code Description Data Jania rce(s) Supporting Document(s) total 25(oh) vitamin D 15.0 NG/mL 30.0-100.0 Below low normal T otal 25(Oh) Vitamin D [place] ([facility]) ID Date Data Source [id number] 09/06/2020 08:48:00 AM EST [facility]) Name Value Range Interpretation Code Description Data Jania rce(s) Supporting Document(s) free T4 0.78 NG/dL 0.76-1.46 Free T4 NORM ([facility]) thyroid stimulating hormone 9.020 uIU/mL 0.358-3.740 Above high no rmal Thyroid Stimulating Hormone [facility]) ID Date Data Source [id number] 09/06/2020 08:48:00 AM EST [facility]) Name Value Range Interpretation Code Description Data Jania rce(s) Supporting Document(s) triglycerides level 145 mg/dL <150 Triglycerides Le matthew NORM ([facility]) non-HDL-C 220 mg/dL Non-hdl-c NORM ([facility]) HDL cholesterol 44 mg/dL >40 HDL Cholesterol ATHE ([facility]) cholesterol level 264 mg/dL <200 Above high normal Cholesterol Level NORM ([facility]) Cholesterol in LDL [Mass/volume] in Serum or Plasma 191 mg/dL <100 Above high normal LDL Cholesterol NORM ([facility]) cholesterol risk ratio <5 Above high normal Choles terol Risk Ratio NORM ([facility]) ID Date Data Source [id number] 09/06/2020 08:48:00 AM EST NORM ([facility]) Name Value Range Interpretation Code Description Data Jania rce(s) Supporting Document(s) blood urea nitrogen 11 mg/dL 7-18 Blood Urea Nitro gen NORM ([facility]) glucose, fasting 82 mg/dL 70-100 Glucose, Fasting AT [facility] ([facility]) creatinine for GFR 1.07 mg/dL 0.70-1.30 Creatinine for GF R NORM ([facility]) sodium level 138 mEq/L 136-145 Sodium Level NORM ([facility]) potassium serum 4.5 mEq/L 3.5-5.1 Potassium Serum ATHE ([facility]) glomerular filtration rate > 60.0 >60 Glomerula r Filtration Rate NORM ([facility]) anion gap 7 mEq/L 8-16 Below low normal Anion Gap NORM ( [facility]) calcium level 9.2 mg/dL 8.5-10.1 Calcium Level NORM ( [facility]) AST/SGOT 20 U/L 7-37 AST/SGOT NORM ([facility]) carbon dioxide level 30 mEq/L 21-32 Carbon Dioxide Level NORM ([facility]) chloride level 101 mEq/L 98-107 Chloride Level NORM ([facility]) bilirubin,total 0.7 mg/dL 0.2-1.0 Bilirubin,total ATHE ([facility]) ALT/SGPT 38 U/L 12-78 ALT/SGPT NORM ([facility]) alkaline phosphatase 79 U/L 45-117 Alkaline Phosph atase NORM ([facility]) total protein 8.0 gm/dL 6.4-8.2 Total Protein NORM ( [facility]) albumin 4.7 gm/dL 3.2-5.2 Albumin NORM ([facility]) albumin/globulin ratio Albumin/globu veda Ratio NORM ([facility]) ID Date Data Source [id number] 09/06/2020 08:48:00 AM EST NORM ([facility]) Name Value Range Interpretation Code Description Data Jania rce(s) Supporting Document(s) white blood count 5.8 10 4.0-10.0 White Blood Count NORM ([facility]) hemoglobin 16.3 g/dL 13.5-17.5 Hemoglobin NORM ([facility]) hematocrit 49.8 % 42.0-52.0 Hematocrit NORM ([facility]) red blood count 5.59 10 4.30-6.10 Red Blood Count ATHE NA ([facility]) mean corpuscular HGB conc 32.7 g/dL 32.0-36.5 Mean Corpu scular HGB Conc NORM ([facility]) mean corpuscular hemoglobin 29.2 pg 27.0-33.0 Mean Cor puscular Hemoglobin NORM ([facility]) mean corpuscular volume 89.1 fL 80.0-96.0 Mean Corpusc ular Volume NORM ([facility]) red cell distribution width 11.9 % 11.5-14.5 Red Cell Distribution Width NORM ([facility]) neutrophils % 60.5 % 36.0-66.0 Neutrophils % NORM ( [facility]) lymph % 27.0 % 24.0-44.0 Lymph % NORM ([facility]) platelet count, automated 269 10 150-450 Platelet C ount, Automated NORM ([facility]) mono % 8.8 % 0.0-5.0 Above high normal [place] % NORM ([facility]) immature granulocyte % 0.3 % 0-3.0 Immature Gran ulocyte % NORM ([facility]) baso % 1.0 % 0.0-1.0 Baso % NORM ([facility]) eos % 2.4 % 0.0-3.0 Eos % NORM ([facility]) mono # 0.5 10 0.0-0.8 [place] # NORM ([facility]) neutrophils # 3.5 10 1.5-8.5 Neutrophils # [place] ( [facility]) nucleated red blood cell % 0.0 % 0-0 Nucleated Red Blood Cell % NORM ([facility]) lymph # 1.6 10 1.5-5.0 Lymph # [place] ([facility]) baso # 0.1 10 0.0-0.2 Baso # NORM ([facility]) eos # 0.1 10 0.0-0.5 Eos # NORM ([facility]) ID Date Data Source [id number] 08/21/2020 12:00:00 AM EST [place] Name Value Range Interpretation Code Description Data Jania rce(s) Supporting Document(s) SARS coronavirus 2 Ag [facility] This lab was ordered by [facility] and reported by [facility]. Procedure Social History No Information Vital Signs ID Date Data Source UNK Name Value Range Interpretation Code Description Data Source(s) Body height 72 [in_i] 72 [in_i] [place] ([facility]) Body mass index (BMI) [Ratio] 22.4 kg/m2 22.4 k g/m2 [facility] ([facility]) Systolic blood pressure 126 mm[Hg] 126 mm[Hg] M EDENT ([facility]) Diastolic blood pressure 84 mm[Hg] 84 mm[Hg] [facility] ([facility]) Body height 72 [in_i] 72 [in_i] [facility] ([facility]) 6'0" Heart rate 111 /min 111 /min [facility] ([facility]) Body temperature 99.0 [degF] 99.0 [degF] MEDENT ([facility], [facility]) Oxygen saturation in Arterial blood by Pulse oximetry 96 % 96 % MEDENT ([facility]) Body weight 165.00 [lb_av] 165.00 [lb_av] MEDEN T ([facility], [facility]) Respiratory rate 16 /min 16 /min MEDENT ( [facility]) Diastolic blood pressure 84 mm[Hg] 84 mm[Hg] NORM ([facility]) Diastolic blood pressure 95 mm[Hg] 95 mm[Hg] NORM ([facility]) Body height 72 [in_i] 72 [in_i] NORM ([facility]) Body mass index (BMI) [Ratio] 24.3 kg/m2 24.3 k g/m2 NORM ([facility]) Body weight 2864 [oz_av] 2864 [oz_av] NORM ([facility]) Systolic blood pressure 153 mm[Hg] 153 mm[Hg] A [facility] ([facility]) Systolic blood pressure 126 mm[Hg] 126 mm[Hg] A [facility] ([facility]) Body mass index (BMI) [Ratio] 24.3 kg/m2 24.3 k g/m2 NORM ([facility]) Systolic blood pressure 153 mm[Hg] 153 mm[Hg] A [facility] ([facility]) Systolic blood pressure 126 mm[Hg] 126 mm[Hg] A [facility] ([facility]) Body weight 2864 [oz_av] 2864 [oz_av] NORM ([facility]) Diastolic blood pressure 84 mm[Hg] 84 mm[Hg] NORM ([facility]) Diastolic blood pressure 95 mm[Hg] 95 mm[Hg] NORM ([facility]) Body height 72 [in_i] 72 [in_i] NORM ([facility]) Systolic blood pressure 153 mm[Hg] 153 mm[Hg] A [facility] ([facility]) Body weight 2864 [oz_av] 2864 [oz_av] NORM ([facility]) Diastolic blood pressure 84 mm[Hg] 84 mm[Hg] NORM ([facility]) Diastolic blood pressure 95 mm[Hg] 95 mm[Hg] NORM ([facility]) Body height 72 [in_i] 72 [in_i] NORM ([facility]) Body mass index (BMI) [Ratio] 24.3 kg/m2 24.3 k g/m2 NORM ([facility]) Systolic blood pressure 126 mm[Hg] 126 mm[Hg] A [facility] ([facility]) Body mass index (BMI) [Ratio] 25.1 kg/m2 25.1 k g/m2 NORM ([facility]) Systolic blood pressure 121 mm[Hg] 121 mm[Hg] A [facility] ([facility]) Body weight 2966.4 [oz_av] 2966.4 [oz_av] ATHEN A ([facility]) Diastolic blood pressure 76 mm[Hg] 76 mm[Hg] NORM ([facility]) Body height 72 [in_i] 72 [in_i] NORM ([facility]) Diastolic blood pressure 76 mm[Hg] 76 mm[Hg] NORM ([facility]) Body height 72 [in_i] 72 [in_i] NORM ([facility]) Body mass index (BMI) [Ratio] 25.1 kg/m2 25.1 k g/m2 NORM ([facility]) Systolic blood pressure 121 mm[Hg] 121 mm[Hg] A [facility] ([facility]) Body weight 2966.4 [oz_av] 2966.4 [oz_av] ATHEN A ([facility]) Diastolic blood pressure 76 mm[Hg] 76 mm[Hg] NORM ([facility]) Body weight 2966.4 [oz_av] 2966.4 [oz_av] ATHEN A ([facility]) Body height 72 [in_i] 72 [in_i] NORM ([facility]) Body mass index (BMI) [Ratio] 25.1 kg/m2 25.1 k g/m2 NORM ([facility]) Systolic blood pressure 121 mm[Hg] 121 mm[Hg] A [facility] ([facility]) Diastolic blood pressure 76 mm[Hg] 76 mm[Hg] NORM ([facility]) Body height 72 [in_i] 72 [in_i] NORM ([facility]) Body mass index (BMI) [Ratio] 25.1 kg/m2 25.1 k g/m2 NORM ([facility]) Systolic blood pressure 121 mm[Hg] 121 mm[Hg] A THENA ([facility]) Body weight 2966.4 [oz_av] 2966.4 [oz_av] ATHEN A ([facility]) Body weight 175.00 [lb_av] 175.00 [lb_av] MEDEN T ([facility], [facility]) Respiratory rate 16 /min 16 /min MEDENT ( [facility], [facility]) Oxygen saturation in Arterial blood by Pulse oximetry 97 % 97 % [facility], [facility]) Body temperature 98.1 [degF] 98.1 [degF] MEDENT ([facility], [facility]) Body height 72 [in_i] 72 [in_i] MEDENT ([facility], [facility]) 6'0" Body mass index (BMI) [Ratio] 23.7 kg/m2 23.7 k g/m2 MEDENT ([facility], [facility]) Systolic blood pressure 138 mm[Hg] 138 mm[Hg] EDENT ([facility], [facility]) Diastolic blood pressure 94 mm[Hg] 94 mm[Hg] MEDENT ([facility], [facility]) Heart rate 73 /min 73 /min MEDENT ([facility], [facility]) Diastolic blood pressure 80 mm[Hg] 80 mm[Hg] NORM ([facility]) Body mass index (BMI) [Ratio] 25 kg/m2 25 kg/ m2 NORM ([facility]) Systolic blood pressure 131 mm[Hg] 131 mm[Hg] A THENA ([facility]) Body height 72 [in_i] 72 [in_i] NORM ([facility]) Body weight 2949 [oz_av] 2949 [oz_av] NORM ([facility]) Diastolic blood pressure 80 mm[Hg] 80 mm[Hg] NORM ([facility]) Body height 72 [in_i] 72 [in_i] NORM ([facility]) Body mass index (BMI) [Ratio] 25 kg/m2 25 kg/ m2 NORM ([facility]) Systolic blood pressure 131 mm[Hg] 131 mm[Hg] A [facility] ([facility]) Body weight 2949 [oz_av] 2949 [oz_av] NORM ([facility]) Body weight 2949 [oz_av] 2949 [oz_av] NORM ([facility]) Systolic blood pressure 131 mm[Hg] 131 mm[Hg] A [facility] ([facility]) Body mass index (BMI) [Ratio] 25 kg/m2 25 kg/ m2 NORM ([facility]) Body height 72 [in_i] 72 [in_i] NORM ([facility]) Diastolic blood pressure 80 mm[Hg] 80 mm[Hg] NORM ([facility]) Diastolic blood pressure 80 mm[Hg] 80 mm[Hg] NORM ([facility]) Body height 72 [in_i] 72 [in_i] NORM ([facility]) Body mass index (BMI) [Ratio] 25 kg/m2 25 kg/ m2 NORM ([facility]) Systolic blood pressure 131 mm[Hg] 131 mm[Hg] A [facility] ([facility]) Body weight 2949 [oz_av] 2949 [oz_av] NORM ([facility]) Diastolic blood pressure 80 mm[Hg] 80 mm[Hg] NORM ([facility]) Body height 72 [in_i] 72 [in_i] NORM ([facility]) Body mass index (BMI) [Ratio] 25 kg/m2 25 kg/ m2 NORM ([facility]) Systolic blood pressure 131 mm[Hg] 131 mm[Hg] A [facility] ([facility]) Body weight 2949 [oz_av] 2949 [oz_av] NORM ([facility]) Diastolic blood pressure 80 mm[Hg] 80 mm[Hg] NORM ([facility]) Body height 72 [in_i] 72 [in_i] NORM ([facility]) Body mass index (BMI) [Ratio] 25 kg/m2 25 kg/ m2 NORM ([facility]) Systolic blood pressure 131 mm[Hg] 131 mm[Hg] A THENA ([facility]) Body weight 2949 [oz_av] 2949 [oz_av] NORM ([facility]) Systolic blood pressure 140 mm[Hg] 140 mm[Hg] M EDENT ([facility], ) Diastolic blood pressure 70 mm[Hg] 70 mm[Hg] MEDENT ([facility], ) Body height 72 [in_i] 72 [in_i] MEDENT ([facility], ) 6'0" Body weight 176.00 [lb_av] 176.00 [lb_av] MEDEN T ([facility], ) Body mass index (BMI) [Ratio] 23.9 kg/m2 23.9 k g/m2 MEDENT ([facility], ) [place] body weight 178 [lb_av] 178 [lb_av] MEDEN T ([facility], ) Body weight 79.834 kg 79.834 kg [facility] ([facility], ) Body surface area Derived from formula 2.02 m2 2.02 m2 [facility] ([facility], ) Diastolic blood pressure 86 mm[Hg] 86 mm[Hg] NORM ([facility]) Body height 72 [in_i] 72 [in_i] NORM ([facility]) Body mass index (BMI) [Ratio] 24.7 kg/m2 24.7 k g/m2 NORM ([facility]) Systolic blood pressure 150 mm[Hg] 150 mm[Hg] A THENA ([facility]) Body weight 2918.4 [oz_av] 2918.4 [oz_av] ATHEN A ([facility]) Diastolic blood pressure 86 mm[Hg] 86 mm[Hg] NORM ([facility]) Body height 72 [in_i] 72 [in_i] NORM ([facility]) Body mass index (BMI) [Ratio] 24.7 kg/m2 24.7 k g/m2 NORM ([facility]) Systolic blood pressure 150 mm[Hg] 150 mm[Hg] A [facility] ([facility]) Body weight 2918.4 [oz_av] 2918.4 [oz_av] ATHEN A ([facility]) Diastolic blood pressure 86 mm[Hg] 86 mm[Hg] NORM ([facility]) Body height 72 [in_i] 72 [in_i] NORM ([facility]) Body mass index (BMI) [Ratio] 24.7 kg/m2 24.7 k g/m2 NORM ([facility]) Systolic blood pressure 150 mm[Hg] 150 mm[Hg] A [facility] ([facility]) Body weight 2918.4 [oz_av] 2918.4 [oz_av] ATHEN A ([facility]) Diastolic blood pressure 86 mm[Hg] 86 mm[Hg] NORM ([facility]) Body height 72 [in_i] 72 [in_i] NORM ([facility]) Body mass index (BMI) [Ratio] 24.7 kg/m2 24.7 k g/m2 NORM ([facility]) Systolic blood pressure 150 mm[Hg] 150 mm[Hg] A [facility] ([facility]) Body weight 2918.4 [oz_av] 2918.4 [oz_av] ATHEN A ([facility]) Body height 72 [in_i] 72 [in_i] NORM ([facility]) Body mass index (BMI) [Ratio] 24.7 kg/m2 24.7 k g/m2 NORM ([facility]) Systolic blood pressure 150 mm[Hg] 150 mm[Hg] A [facility] ([facility]) Body weight 2918.4 [oz_av] 2918.4 [oz_av] ATHEN A ([facility]) Diastolic blood pressure 86 mm[Hg] 86 mm[Hg] NORM ([facility]) Diastolic blood pressure 86 mm[Hg] 86 mm[Hg] NORM ([facility]) Body height 72 [in_i] 72 [in_i] NORM ([facility]) Body mass index (BMI) [Ratio] 24.7 kg/m2 24.7 k g/m2 NORM ([facility]) Systolic blood pressure 150 mm[Hg] 150 mm[Hg] A ABBYA ([facility]) Body weight 2918.4 [oz_av] 2918.4 [oz_av] ATHEN A ([facility]) Diastolic blood pressure 86 mm[Hg] 86 mm[Hg] NORM ([facility]) Body height 72 [in_i] 72 [in_i] NORM ([facility]) Body mass index (BMI) [Ratio] 24.7 kg/m2 24.7 k g/m2 NORM ([facility]) Systolic blood pressure 150 mm[Hg] 150 mm[Hg] A TYLER ([facility]) Body weight 2918.4 [oz_av] 2918.4 [oz_av] ATHEN A ([facility]) Diastolic blood pressure 86 mm[Hg] 86 mm[Hg] NORM ([facility]) Body height 72 [in_i] 72 [in_i] NORM ([facility]) Body mass index (BMI) [Ratio] 24.7 kg/m2 24.7 k g/m2 NORM ([facility]) Systolic blood pressure 150 mm[Hg] 150 mm[Hg] A TYLER ([facility]) Body weight 2918.4 [oz_av] 2918.4 [oz_av] ATHEN A ([facility]) Diastolic blood pressure 86 mm[Hg] 86 mm[Hg] NORM ([facility]) Body height 72 [in_i] 72 [in_i] NORM ([facility]) Body mass index (BMI) [Ratio] 24.7 kg/m2 24.7 k g/m2 NORM ([facility]) Systolic blood pressure 150 mm[Hg] 150 mm[Hg] A [facility] ([facility]) Body weight 2918.4 [oz_av] 2918.4 [oz_av] ATHEN A ([facility]) Body height 72 [in_i] 72 [in_i] NORM ([facility]) Body height 72 [in_i] 72 [in_i] NORM ([facility]) Body height 72 [in_i] 72 [in_i] NORM ([facility]) Body height 72 [in_i] 72 [in_i] NORM ([facility]) Body height 72 [in_i] 72 [in_i] NORM ([facility]) Body height 72 [in_i] 72 [in_i] NORM ([facility]) Body height 72 [in_i] 72 [in_i] NORM ([facility]) Body height 72 [in_i] 72 [in_i] NORM ([facility]) Body height 72 [in_i] 72 [in_i] NORM ([facility]) Body height 72 [in_i] 72 [in_i] NORM ([facility]) Body height 72 [in_i] 72 [in_i] NORM ([facility]) Body height 72 [in_i] 72 [in_i] NORM ([facility]) Body height 72 [in_i] 72 [in_i] NORM ([facility]) Body height 72 [in_i] 72 [in_i] NORM ([facility]) Body height 72 [in_i] 72 [in_i] NORM ([facility]) Body height 72 [in_i] 72 [in_i] NORM ([facility]) Body height 72 [in_i] 72 [in_i] NORM ([facility]) Body height 72 [in_i] 72 [in_i] NORM ([facility]) Body height 72 [in_i] 72 [in_i] NORM ([facility]) Body height 72 [in_i] 72 [in_i] NORM ([facility]) Body height 72 [in_i] 72 [in_i] NORM ([facility]) Body height 72 [in_i] 72 [in_i] NORM ([facility]) Body height 72 [in_i] 72 [in_i] NORM ([facility]) Systolic blood pressure 142 mm[Hg] 142 mm[Hg] A [facility] ([facility]) Body weight 2969.6 [oz_av] 2969.6 [oz_av] ATHEN A ([facility]) Diastolic blood pressure 82 mm[Hg] 82 mm[Hg] NORM ([facility]) Body height 72 [in_i] 72 [in_i] NORM ([facility]) Body mass index (BMI) [Ratio] 25.2 kg/m2 25.2 k g/m2 NORM ([facility]) Body mass index (BMI) [Ratio] 25.2 kg/m2 25.2 k g/m2 NORM ([facility]) Diastolic blood pressure 82 mm[Hg] 82 mm[Hg] NORM ([facility]) Body height 72 [in_i] 72 [in_i] NORM ([facility]) Systolic blood pressure 142 mm[Hg] 142 mm[Hg] A THENA ([facility]) Body weight 2969.6 [oz_av] 2969.6 [oz_av] ATHEN A ([facility]) Diastolic blood pressure 82 mm[Hg] 82 mm[Hg] NORM ([facility]) Body height 72 [in_i] 72 [in_i] NORM ([facility]) Body mass index (BMI) [Ratio] 25.2 kg/m2 25.2 k g/m2 [facility] ([facility]) Systolic blood pressure 142 mm[Hg] 142 mm[Hg] A THENA ([facility]) Body weight 2969.6 [oz_av] 2969.6 [oz_av] ATHEN A ([facility]) Diastolic blood pressure 82 mm[Hg] 82 mm[Hg] NORM ([facility]) Body height 72 [in_i] 72 [in_i] NORM ([facility]) Body mass index (BMI) [Ratio] 25.2 kg/m2 25.2 k g/m2 NORM ([facility]) Systolic blood pressure 142 mm[Hg] 142 mm[Hg] A [facility] ([facility]) Body weight 2969.6 [oz_av] 2969.6 [oz_av] ATHEN A ([facility]) Diastolic blood pressure 82 mm[Hg] 82 mm[Hg] NORM ([facility]) Systolic blood pressure 142 mm[Hg] 142 mm[Hg] A [facility] ([facility]) Body weight 2969.6 [oz_av] 2969.6 [oz_av] ATHEN A ([facility]) Body height 72 [in_i] 72 [in_i] NORM ([facility]) Body mass index (BMI) [Ratio] 25.2 kg/m2 25.2 k g/m2 NORM ([facility]) Diastolic blood pressure 82 mm[Hg] 82 mm[Hg] NORM ([facility]) Body height 72 [in_i] 72 [in_i] NORM ([facility]) Body mass index (BMI) [Ratio] 25.2 kg/m2 25.2 k g/m2 NORM ([facility]) Systolic blood pressure 142 mm[Hg] 142 mm[Hg] A THENA ([facility]) Body weight 2969.6 [oz_av] 2969.6 [oz_av] ATHEN A ([facility]) Diastolic blood pressure 82 mm[Hg] 82 mm[Hg] NORM ([facility]) Body height 72 [in_i] 72 [in_i] NORM ([facility]) Body mass index (BMI) [Ratio] 25.2 kg/m2 25.2 k g/m2 NORM ([facility]) Systolic blood pressure 142 mm[Hg] 142 mm[Hg] A THENA ([facility]) Body weight 2969.6 [oz_av] 2969.6 [oz_av] ATHEN A ([facility]) Diastolic blood pressure 82 mm[Hg] 82 mm[Hg] NORM ([facility]) Body height 72 [in_i] 72 [in_i] NORM ([facility]) Body mass index (BMI) [Ratio] 25.2 kg/m2 25.2 k g/m2 NORM ([facility]) Systolic blood pressure 142 mm[Hg] 142 mm[Hg] A [facility] ([facility]) Body weight 2969.6 [oz_av] 2969.6 [oz_av] ATHEN A ([facility]) Diastolic blood pressure 82 mm[Hg] 82 mm[Hg] NORM ([facility]) Body height 72 [in_i] 72 [in_i] NORM ([facility]) Body mass index (BMI) [Ratio] 25.2 kg/m2 25.2 k g/m2 NORM ([facility]) Systolic blood pressure 142 mm[Hg] 142 mm[Hg] A [facility] ([facility]) Body weight 2969.6 [oz_av] 2969.6 [oz_av] ATHEN A ([facility]) Diastolic blood pressure 82 mm[Hg] 82 mm[Hg] NORM ([facility]) Body height 72 [in_i] 72 [in_i] NORM ([facility]) Body mass index (BMI) [Ratio] 25.2 kg/m2 25.2 k g/m2 NORM ([facility]) Systolic blood pressure 142 mm[Hg] 142 mm[Hg] A [facility] ([facility]) Body weight 2969.6 [oz_av] 2969.6 [oz_av] ATHEN A ([facility]) Diastolic blood pressure 82 mm[Hg] 82 mm[Hg] NORM ([facility]) Body height 72 [in_i] 72 [in_i] NORM ([facility]) Body mass index (BMI) [Ratio] 25.2 kg/m2 25.2 k g/m2 NORM ([facility]) Systolic blood pressure 142 mm[Hg] 142 mm[Hg] A [facility] ([facility]) Body weight 2969.6 [oz_av] 2969.6 [oz_av] ATHEN A ([facility]) Body height 72 [in_i] 72 [in_i] NORM ([facility]) Body mass index (BMI) [Ratio] 25.2 kg/m2 25.2 k g/m2 NORM ([facility]) Systolic blood pressure 142 mm[Hg] 142 mm[Hg] A [facility] ([facility]) Body weight 2969.6 [oz_av] 2969.6 [oz_av] ATHEN A ([facility]) Diastolic blood pressure 82 mm[Hg] 82 mm[Hg] NORM ([facility]) Diastolic blood pressure 82 mm[Hg] 82 mm[Hg] NORM ([facility]) Body height 72 [in_i] 72 [in_i] NORM ([facility]) Body mass index (BMI) [Ratio] 25.2 kg/m2 25.2 k g/m2 NORM ([facility]) Systolic blood pressure 142 mm[Hg] 142 mm[Hg] A THENA ([facility]) Body weight 2969.6 [oz_av] 2969.6 [oz_av] ATHEN A ([facility]) Diastolic blood pressure 82 mm[Hg] 82 mm[Hg] NORM ([facility]) Body height 72 [in_i] 72 [in_i] NORM ([facility]) Body mass index (BMI) [Ratio] 25.2 kg/m2 25.2 k g/m2 NORM ([facility]) Systolic blood pressure 142 mm[Hg] 142 mm[Hg] A THENA ([facility]) Body weight 2969.6 [oz_av] 2969.6 [oz_av] ATHEN A ([facility]) Body height 72 [in_i] 72 [in_i] NORM ([facility]) Body height 72 [in_i] 72 [in_i] NORM ([facility]) Body height 72 [in_i] 72 [in_i] NORM ([facility]) Body height 72 [in_i] 72 [in_i] NORM ([facility]) Body height 72 [in_i] 72 [in_i] NORM ([facility]) Body height 72 [in_i] 72 [in_i] NORM ([facility]) Body height 72 [in_i] 72 [in_i] NORM ([facility]) Body height 72 [in_i] 72 [in_i] NORM ([facility]) Body height 72 [in_i] 72 [in_i] NORM ([facility]) Body height 72 [in_i] 72 [in_i] NORM ([facility]) Body height 72 [in_i] 72 [in_i] NORM ([facility]) Body height 72 [in_i] 72 [in_i] NORM ([facility]) Body height 72 [in_i] 72 [in_i] NORM ([facility]) Body height 72 [in_i] 72 [in_i] NORM ([facility]) Body height 72 [in_i] 72 [in_i] NORM ([facility]) Systolic blood pressure 129 mm[Hg] 129 mm[Hg] M EDENT ([facility], [facility]) Diastolic blood pressure 93 mm[Hg] 93 mm[Hg] MEDENT ([facility], [facility]) Heart rate 88 /min 88 /min MEDENT ([facility], [facility]) Respiratory rate 16 /min 16 /min MEDENT ( [facility], [facility]) Oxygen saturation in Arterial blood by Pulse oximetry 99 % 99 % MEDENT ([facility], [facility]) Body temperature 99.1 [degF] 99.1 [degF] MEDENT ([facility], [facility]) Body weight 165.00 [lb_av] 165.00 [lb_av] MEDEN T ([facility], [facility]) Patient Treatment Plan of Care Planned Activity Planned Date Details Description Data Source (s) cetirizine hydrochloride 10 MG Oral Tablet 08/29/2020 12:00:[address] [place] ([facility]) cetirizine hydrochloride 10 MG Oral Tablet 08/29/2020 12:00:[address] [place] ([facility]) POLYETHYLENE GLYCOL 3350 142 MG/ML Oral Solution [Miralax] NORM ([facility]) Ibuprofen 800 MG Oral Tablet NORM ([facility]) Levothyroxine Sodium 0.05 MG Oral Tablet [Euthyrox] NORM ([facility]) Levothyroxine Sodium 0.025 MG Oral Tablet [Euthyrox] NORM ([facility]) Clindamycin 300 MG Oral Capsule NORM ([facility]) cefdinir 300 MG Oral Capsule NORM ([facility]) Azithromycin 250 MG Oral Tablet NORM ([facility]) POLYETHYLENE GLYCOL 3350 142 MG/ML Oral Solution [Miralax] NORM ([facility]) Ibuprofen 800 MG Oral Tablet NORM ([facility]) Levothyroxine Sodium 0.05 MG Oral Tablet [Euthyrox] NORM ([facility]) Levothyroxine Sodium 0.025 MG Oral Tablet [Euthyrox] NORM ([facility]) Clindamycin 300 MG Oral Capsule NORM ([facility]) Azithromycin 250 MG Oral Tablet NORM ([facility]) POLYETHYLENE GLYCOL 3350 142 MG/ML Oral Solution [Miralax] NORM ([facility]) Ibuprofen 800 MG Oral Tablet NORM ([facility]) Levothyroxine Sodium 0.05 MG Oral Tablet [Euthyrox] NORM ([facility]) Levothyroxine Sodium 0.025 MG Oral Tablet [Euthyrox] NORM ([facility]) Clindamycin 300 MG Oral Capsule NORM ([facility]) Azithromycin 250 MG Oral Tablet NORM ([facility]) POLYETHYLENE GLYCOL 3350 142 MG/ML Oral Solution [Miralax] NORM ([facility]) Ibuprofen 800 MG Oral Tablet NORM ([facility]) Levothyroxine Sodium 0.05 MG Oral Tablet [Euthyrox] NORM ([facility]) Levothyroxine Sodium 0.025 MG Oral Tablet [Euthyrox] NORM ([facility]) d3 50 mcg (2000 ut) caps AT [facility] ([facility]) Clindamycin 300 MG Oral Capsule NORM ([facility]) Azithromycin 250 MG Oral Tablet NORM ([facility]) Ibuprofen 800 MG Oral Tablet NORM ([facility]) Azithromycin 250 MG Oral Tablet NORM ([facility]) Ibuprofen 800 MG Oral Tablet NORM ([facility]) d3 50 mcg (2000 ut) caps AT [facility] ([facility]) Clindamycin 300 MG Oral Capsule NORM ([facility]) Azithromycin 250 MG Oral Tablet NORM ([facility]) Ibuprofen 800 MG Oral Tablet NORM ([facility]) Clindamycin 300 MG Oral Capsule NORM ([facility]) Azithromycin 250 MG Oral Tablet NORM ([facility]) Ibuprofen 800 MG Oral Tablet NORM ([facility]) Clindamycin 300 MG Oral Capsule NORM ([facility]) Azithromycin 250 MG Oral Tablet NORM ([facility]) Ibuprofen 800 MG Oral Tablet NORM ([facility]) Clindamycin 300 MG Oral Capsule NORM ([facility]) Azithromycin 250 MG Oral Tablet NORM ([facility]) Ibuprofen 800 MG Oral Tablet NORM ([facility]) Clindamycin 300 MG Oral Capsule NORM ([facility]) Azithromycin 250 MG Oral Tablet NORM ([facility]) Ibuprofen 800 MG Oral Tablet NORM ([facility]) Clindamycin 300 MG Oral Capsule NORM ([facility]) Azithromycin 250 MG Oral Tablet NORM ([facility]) Ibuprofen 800 MG Oral Tablet NORM ([facility]) fluticasone 113 mcg-salmeterol 14 mcg/actuation breath activated po wdr NORM ([facility]) Clindamycin 300 MG Oral Capsule NORM ([facility]) Azithromycin 250 MG Oral Tablet NORM ([facility]) Ibuprofen 800 MG Oral Tablet NORM ([facility]) Levothyroxine Sodium 0.025 MG Oral Tablet [Euthyrox] NORM ([facility]) Clindamycin 300 MG Oral Capsule NORM ([facility]) Ibuprofen 800 MG Oral Tablet NORM ([facility]) Levothyroxine Sodium 0.025 MG Oral Tablet [Euthyrox] NORM ([facility]) Clindamycin 300 MG Oral Capsule NORM ([facility]) albuterol sulfate HFA 90 mcg/actuation aerosol inhaler NORM ([facility]) Ibuprofen 800 MG Oral Tablet NORM ([facility]) Levothyroxine Sodium 0.025 MG Oral Tablet [Euthyrox] NORM ([facility]) Clindamycin 300 MG Oral Capsule NORM ([facility]) albuterol sulfate HFA 90 mcg/actuation aerosol inhaler NORM ([facility])
[2021-08-04 15:21] LABS: ERYTHROCYTE SEDIMENTATION RATE 16 mm/hr (0-15)
[2021-08-04] MEDS ORDERED: ISOVUE-370 76% 100ML VIAL As Ordered ONE (16:04)
--- NOTE | 2021-08-04 16:28 | REP ---
INDICATION: left sided chest pain, hemoptysis, COVID+, off quarantine. COMPARISON: Comparison is made with chest x-ray from July 27, 2021. TECHNIQUE: Contrast dose: 75 ML of Isovue [address] technique: Helical scanning is acquired and overlapping 1.5 mm and contiguous 3 mm axial images are reformatted. In addition, maximum intensity projection and multiplanar re-formation images are generated in sagittal and coronal imaging projections. FINDINGS: There is good opacification in the pulmonary arterial tree. There is no evidence of vessel cut off or filling defect to suggest pulmonary embolus. Homogeneous opacity is seen in the thoracic aorta. There is no evidence of aneurysm or dissection. There is no evidence of pleural effusion or pericardial there are scattered effusion. Mediastinal and right hilar lymph nodes. The right hilar nodes are mildly enlarged. There are normal-sized left hilar lymph nodes. Lung window settings demonstrate multifocal patchy predominantly peripheral areas of fairly dense parenchymal opacity infiltrate. Pattern is typical of a COVID pneumonitis. There are bilateral lower lobe areas involved as well as some patchy involvement in the right upper and middle lobe and the left upper lobe. In the upper abdomen, normal adrenal glands are seen. The visualized upper abdominal structures are unremarkable. IMPRESSION: No CT evidence of pulmonary embolus. Commonly reported imaging features of COVID 19 pneumonia are present. Multifocal patchy bilateral lower lobe and upper lobe areas of infiltrate. There is mild reactive right hilar and mediastinal adenopathy. <Electronically signed by Fidencio George > 08/04/21 [id number]
[2021-08-04] MEDS ORDERED: ASPE4PAD TOP (17:29)
[2021-08-04] MEDS ORDERED: AZIT-12 PO (17:29)
[2021-08-04] MEDS ORDERED: AZITHROMYCIN 250MG TABLET PO ONE (17:35)
[2021-08-04 17:48] VITALS: BP 118/79
--- NOTE | 2021-08-04 21:17 | ECGEPIP ---
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
== END 2021-08-04 17:50 | disposition home or self-care (01) ==
LOC: M ED 12:35
DX: U07.1 COVID-19 (principal); R07.9 Chest pain, unspecified; J45.909 Unspecified asthma, uncomplicated; Z88.0 Allergy status to penicillin; Z88.4 Allergy status to anesthetic agent; Z88.8 Allergy status to other drugs, medicaments and biological substances
CPT/HCPCS: 71275; 80047; 82550; 85025; 85652; 86140; 93005; 94640; 96360; 96361; 99284; Q9967

== ENCOUNTER 2022-07-15 10:10 | Emergency (ER) | payer OTHER ==
[~2022-07-15] VITALS: Ht 182.9 cm; Wt 82.3 kg
[~2022-07-15 10:10] MED LIST changes: +ALBU6.7H6 INH; +ASPE4PAD TOP; +AZIT-12 PO; -MONT10TA10; +MONT10TA97; -PROV108A INH
[2022-07-15] MEDS ORDERED: EUTH75TA (10:56)
[2022-07-15] MEDS ORDERED: NAPROXEN 250 MG TAB PO ONE (13:15)
[2022-07-15 13:58] VITALS: BP 138/78
== END 2022-07-15 13:46 | disposition home or self-care (01) ==
LOC: M ED 10:10
DX: R22.41 Localized swelling, mass and lump, right lower limb (principal); J45.909 Unspecified asthma, uncomplicated; Z79.890 Hormone replacement therapy; Z79.899 Other long term (current) drug therapy; Z88.0 Allergy status to penicillin; Z88.4 Allergy status to anesthetic agent; Z87.738 Personal history of other specified (corrected) congenital malformations of digestive system

== ENCOUNTER → 2022-11-01 | Outpatient (CLI) | payer OTHER ==
[~2022-11-01] MED LIST changes: +EUTH75TA
[2022-11-01 09:37] LABS: HEMATOCRIT 47.2 % (42.0-52.0); HEMOGLOBIN 15.6 g/dl (13.5-17.5); MEAN CORPUSCULAR HEMOGLOBIN 29.7 pg (27.0-33.0); MEAN CORPUSCULAR HGB CONC 33.1 g/dl (32.0-36.5); MEAN CORPUSCULAR VOLUME 89.9 fl (80.0-96.0); PLATELET COUNT, AUTOMATED 263 10^3/uL (150-450); RED BLOOD COUNT 5.25 10^6/uL (4.30-6.10); WHITE BLOOD COUNT 5.8 10^3/uL (4.0-10.0)
[2022-11-01 10:13] LABS: ALBUMIN 4.1 G/DL (3.2-5.2); ALKALINE PHOSPHATASE 74 U/L (46-116); ALT/SGPT 23 U/L (7.0-40); AST/SGOT 21 U/L (<34); BILIRUBIN,TOTAL 0.6 MG/DL (0.3-1.2); BLOOD UREA NITROGEN 11 MG/DL (9-23); CALCIUM LEVEL 9.3 MG/DL (8.5-10.1); CARBON DIOXIDE LEVEL 31 MMOL/L (20-31); CHLORIDE LEVEL 104 MMOL/L (98-107); CHOLESTEROL LEVEL 175 MG/DL (<200); CHOLESTEROL RISK RATIO 4.34 (<5); CREATININE FOR GFR 0.91 MG/DL (0.70-1.30); GLOMERULAR FILTRATION RATE > 60.0 (>60); GLUCOSE, FASTING 94 MG/DL (60-100); HDL CHOLESTEROL 40.3 MG/DL (>40); LDL CHOLESTEROL 117.9 MG/DL (<100); NON-HDL-C 134.7 MG/DL; POTASSIUM SERUM 4.7 MMOL/L (3.5-5.1); SODIUM LEVEL 141 MMOL/L (136-145); TOTAL 25(OH) VITAMIN D 17.8 NG/ML (20.0-100.0); TOTAL PROTEIN 6.9 G/DL (5.7-8.2); TRIGLYCERIDES LEVEL 84 MG/DL (<150)
== END ==
LOC: M LAB 08:28
PROVIDERS: ATTEND Physician Assistant
DX: E55.9 Vitamin D deficiency, unspecified (principal); E03.9 Hypothyroidism, unspecified; J45.909 Unspecified asthma, uncomplicated

== ENCOUNTER 2023-09-27 12:43 | Emergency (ER) | payer OTHER ==
[~2023-09-27] VITALS: Ht 182.9 cm; Wt 82.8 kg
[2023-09-27 12:45] VITALS: BP 153/98; TEMP 97.8
[2023-09-27 13:43] LABS: RSV AMPLIFICATION NEGATIVE (NEGATIVE)
[2023-09-27 14:18] VITALS: O2SAT 98
== END 2023-09-27 14:11 | disposition home or self-care (01) ==
LOC: M ED 12:43
DX: R51.9 Headache, unspecified (principal); E03.9 Hypothyroidism, unspecified; J45.909 Unspecified asthma, uncomplicated; F10.10 Alcohol abuse, uncomplicated; Z88.0 Allergy status to penicillin; Z88.8 Allergy status to other drugs, medicaments and biological substances; Z88.4 Allergy status to anesthetic agent; Z79.52 Long term (current) use of systemic steroids; Z79.810 Long term (current) use of selective estrogen receptor modulators (SERMs); Z79.899 Other long term (current) drug therapy

== ENCOUNTER → 2023-10-08 | Outpatient (REF) | payer OTHER ==
[2023-10-08 18:46] LABS: BASO % 0.5 % (0.0-1.0); EOS # 0.1 10^3/uL (0.0-0.5); EOS % 1.8 % (0.0-3.0); HEMOGLOBIN 15.3 g/dl (13.5-17.5); LYMPH % 26.7 % (24.0-44.0); MEAN CORPUSCULAR HEMOGLOBIN 29.7 pg (27.0-33.0); MEAN CORPUSCULAR HGB CONC 33.3 g/dl (32.0-36.5); MEAN CORPUSCULAR VOLUME 89.3 fl (80.0-96.0); MONO # 0.6 10^3/uL (0.0-0.8); MONO % 7.5 % (2.0-8.0); NEUTROPHILS # 4.7 10^3/uL (1.5-8.5); PLATELET COUNT, AUTOMATED 282 10^3/uL (150-450); RED BLOOD COUNT 5.15 10^6/uL (4.30-6.10); WHITE BLOOD COUNT 7.4 10^3/uL (4.0-10.0)
[2023-10-08 19:16] LABS: ALKALINE PHOSPHATASE 72 U/L (46-116); ALT/SGPT 18 U/L (7.0-40); AST/SGOT 16 U/L (<34); BILIRUBIN,TOTAL 0.6 MG/DL (0.3-1.2); BLOOD UREA NITROGEN 8 MG/DL (9-23); CALCIUM LEVEL 9.4 MG/DL (8.5-10.1); CARBON DIOXIDE LEVEL 30 MMOL/L (20-31); CHLORIDE LEVEL 101 MMOL/L (98-107); CHOLESTEROL LEVEL 231 MG/DL (<200); CHOLESTEROL RISK RATIO 5.47 (<5); CREATININE FOR GFR 0.84 MG/DL (0.70-1.30); GLOMERULAR FILTRATION RATE > 60.0 (>60); GLUCOSE, FASTING 82 MG/DL (60-100); HDL CHOLESTEROL 42.2 MG/DL (>40); LDL CHOLESTEROL 158.8 MG/DL (<100); NON-HDL-C 188.8 MG/DL; POTASSIUM SERUM 4.1 MMOL/L (3.5-5.1); SODIUM LEVEL 136 MMOL/L (136-145); TOTAL PROTEIN 7.5 G/DL (5.7-8.2); TRIGLYCERIDES LEVEL 150 MG/DL (<150)
[2023-10-08 19:27] LABS: TOTAL 25(OH) VITAMIN D 6.1 NG/ML (20.0-100.0)
== END ==
LOC: M LAB REF 18:24
PROVIDERS: ATTEND Physician Assistant
DX: E55.9 Vitamin D deficiency, unspecified (principal); R53.83 Other fatigue; I10 Essential (primary) hypertension

== ENCOUNTER → 2023-11-09 | Outpatient (REF) | payer OTHER | LOC: M LAB REF 16:27 | PROVIDERS: ATTEND Physician Assistant | DX: E03.9 Hypothyroidism, unspecified (principal) ==

== ENCOUNTER → 2023-12-28 | Outpatient (REF) | payer OTHER ==
[2023-12-28 18:49] LABS: ALBUMIN 3.9 G/DL (3.2-5.2); BILIRUBIN,DIRECT 0.2 MG/DL (<0.4); BILIRUBIN,TOTAL 0.6 MG/DL (0.3-1.2); CHOLESTEROL RISK RATIO 3.72 (<5); HDL CHOLESTEROL 39.5 MG/DL (>40); LDL CHOLESTEROL 75.5 MG/DL (<100); NON-HDL-C 107.5 MG/DL
== END ==
LOC: M LAB REF 16:28
PROVIDERS: ATTEND Physician Assistant
DX: E78.5 Hyperlipidemia, unspecified (principal); E55.9 Vitamin D deficiency, unspecified

== ENCOUNTER → 2025-05-13 | Outpatient (REF) | payer OTHER ==
[2025-05-13 15:14] LABS: ALT/SGPT 27 U/L (7.0-40); AST/SGOT 25 U/L (<34); CALCIUM LEVEL 9.5 MG/DL (8.5-10.1); CARBON DIOXIDE LEVEL 30 MMOL/L (20-31); CHLORIDE LEVEL 102 MMOL/L (98-107); CHOLESTEROL LEVEL 241 MG/DL (<200); CHOLESTEROL RISK RATIO 5.26 (<5); CREATININE FOR GFR 1.03 MG/DL (0.70-1.30); GLOMERULAR FILTRATION RATE > 90.0 (>60); LDL CHOLESTEROL 180.4 MG/DL (<100); NON-HDL-C 195.2 MG/DL; POTASSIUM SERUM 4.3 MMOL/L (3.5-5.1); SODIUM LEVEL 141 MMOL/L (136-145); TRIGLYCERIDES LEVEL 74 MG/DL (<150)
[2025-05-13 15:16] LABS: TOTAL 25(OH) VITAMIN D 15.6 NG/ML (20.0-100.0)
== END ==
LOC: M LAB REF 14:34
PROVIDERS: ATTEND Nurse Practitioner Family
DX: E03.9 Hypothyroidism, unspecified (principal); E78.5 Hyperlipidemia, unspecified; E55.9 Vitamin D deficiency, unspecified

== ENCOUNTER 2025-06-07 11:15 | Emergency (ER) | payer OTHER ==
[~2025-06-07] VITALS: Ht 182.9 cm; Wt 85.8 kg
[2025-06-07] MEDS ORDERED: ATOR1TAB19 (11:27)
[2025-06-07] MEDS ORDERED: AMLO1TAB24 (11:27)
[2025-06-07 11:46] LABS: BASO # 0.0 10^3/uL (0.0-0.2); BASO % 0.7 % (0.0-1.0); EOS # 0.1 10^3/uL (0.0-0.5); EOS % 1.6 % (0.0-3.0); LYMPH # 1.5 10^3/uL (1.5-5.0); LYMPH % 25.1 % (24.0-44.0); MONO # 0.5 10^3/uL (0.0-0.8); MONO % 7.4 % (2.0-8.0); NEUTROPHILS # 4.0 10^3/uL (1.5-8.5); NEUTROPHILS % 64.9 % (36.0-66.0); PLATELET COUNT, AUTOMATED 281 10^3/uL (150-450)
[2025-06-07 12:10] LABS: ALT/SGPT 19 U/L (7.0-40); AST/SGOT 23 U/L (<34); CALCIUM LEVEL 9.5 MG/DL (8.5-10.1); CARBON DIOXIDE LEVEL 27 MMOL/L (20-31); CHLORIDE LEVEL 103 MMOL/L (98-107); CREATININE FOR GFR 0.86 MG/DL (0.70-1.30); GLOMERULAR FILTRATION RATE > 90.0 (>60); POTASSIUM SERUM 4.2 MMOL/L (3.5-5.1); SODIUM LEVEL 142 MMOL/L (136-145)
[2025-06-07] MEDS: amLODIPine 5 MG TAB PO ONE (13:58)
[2025-06-07 14:03] LABS: BASO # 0.1 10^3/uL (0.0-0.2); BASO % 0.8 % (0.0-1.0); EOS # 0.1 10^3/uL (0.0-0.5); EOS % 1.9 % (0.0-3.0); LYMPH # 1.5 10^3/uL (1.5-5.0); LYMPH % 23.0 % (24.0-44.0); MONO # 0.6 10^3/uL (0.0-0.8); MONO % 8.5 % (2.0-8.0); NEUTROPHILS # 4.3 10^3/uL (1.5-8.5); NEUTROPHILS % 65.6 % (36.0-66.0); PLATELET COUNT, AUTOMATED 279 10^3/uL (150-450)
[2025-06-07] MEDS ORDERED: ISOVUE-370 76% 100 ML VIAL As Ordered ONE (14:03)
[2025-06-07 14:29] LABS: CALCIUM LEVEL 9.3 MG/DL (8.5-10.1); CARBON DIOXIDE LEVEL 29 MMOL/L (20-31); CHLORIDE LEVEL 104 MMOL/L (98-107); CREATININE FOR GFR 0.85 MG/DL (0.70-1.30); GLOMERULAR FILTRATION RATE > 90.0 (>60); POTASSIUM SERUM 4.2 MMOL/L (3.5-5.1); SODIUM LEVEL 142 MMOL/L (136-145)
[2025-06-07 15:08] LABS: APPEARANCE, URINE CLEAR (CLEAR); BACTERIA, URINE AUTO NEGATIVE (NEGATIVE); BILIRUBIN, URINE AUTO NEGATIVE (NEGATIVE); BLOOD, URINE BLOOD NEGATIVE (NEGATIVE); GLUCOSE, URINE (UA) AUTO NEGATIVE (NEGATIVE); KETONE, URINE AUTO NEGATIVE (NEGATIVE); LEUKOCYTE ESTERASE, URINE AUTO NEGATIVE (NEGATIVE); NITRITE, URINE AUTO NEGATIVE (NEGATIVE); PROTEIN, URINE AUTO NEGATIVE (NEGATIVE); RBC, URINE AUTO 0 /HPF (0-3); SPECIFIC GRAVITY URINE AUTO 1.047 (1.002-1.035); SQUAMOUS EPITHELIAL CELL UR AU 0 /HPF (0-6); UROBILINOGEN, URINE AUTO 0.2 mg/dL (0.0-2.0); WBC, URINE AUTO 0 /HPF (0-3)
[2025-06-07 15:44] VITALS: BP 137/92; TEMP 96.9; O2SAT 99
== END 2025-06-07 15:50 | disposition home or self-care (01) ==
LOC: M ED 11:15
DX: I10 Essential (primary) hypertension (principal); I45.4 Nonspecific intraventricular block; E78.5 Hyperlipidemia, unspecified; J45.909 Unspecified asthma, uncomplicated; E03.9 Hypothyroidism, unspecified; Z88.0 Allergy status to penicillin; Z88.8 Allergy status to other drugs, medicaments and biological substances; Z79.52 Long term (current) use of systemic steroids; Z79.02 Long term (current) use of antithrombotics/antiplatelets; Z79.899 Other long term (current) drug therapy
CPT/HCPCS: 36415; 70450; 70496; 70498; 80048; 80053; 81001; 82248; 85025; 93005; 99284; Q9967